=== PATIENT | male | born 1985 | race Hispanic/Latino ===

== ENCOUNTER 2016-03-10 01:50 | Inpatient (IN) | payer SELFPAY ==
[2016-03-10 02:59] LABS: Basophils % (Auto) 0.3 % (0.0-1.8); Eosinophils % (Auto) 0.1 % (0.0-4.3); Hematocrit 40.5 % (35.5-45.6); Hemoglobin 13.3 gm/dl (11.8-15.2); Mean Corpuscular HGB Conc 33 % (32-34); Mean Corpuscular Hemoglobin 27 pg (28-32); Mean Corpuscular Volume 82 fl (84-94); Platelet Count 266 K/mm3 (140-440); Red Blood Count 4.96 M/mm3 (3.65-5.03); Red Cell Distribution Width 13.8 % (13.2-15.2); White Blood Count 14.2 K/mm3 (4.5-11.0)
[2016-03-10 03:20] LABS: Chloride 94.7 mmol/L (98-107); Potassium 4.4 mmol/L (3.6-5.0)
--- NOTE | 2016-03-10 03:46 | Emergency Department Report ---
ED General Adult HPI - General Chief complaint: Weakness Stated complaint: FEELS FUNNY AFTER TAKING MEDS Time Seen by Provider: 03/10/16 02:59 Source: patient, EMS, RN notes reviewed, old records reviewed Mode of arrival: Stretcher Limitations: No Limitations - History of Present Illness Initial comments: This is a 23-year-old male, whom I have evaluated in the past. Has a past medical history of type 1 diabetes, multiple episodes of diabetic ketoacidosis, chronic skin infections in the past. He is brought to the hospital by EMS. Patient reports that 2 nights ago, he ingested 2 tablets of [id number] Unisom in order to go to sleep. He was not homicidal he was not suicidal. He reports that he started feeling funny and that his arms felt heavy. He denies coingestions. He denies chest pain and abdominal pain. The patient does complain of feeling generalized weakness, fatigue and malaise. He denies abdominal pain, testicular pain, irritative and obstructive urinary symptoms. He reports that his symptoms today feel similar to prior episodes of diabetic ketoacidosis. \\\ -: Gradual Consistency: constant Improves with: rest Worsens with: movement Associated Symptoms: loss of appetite, malaise, weakness - Related Data Home Medications Medication Instructions Recorded Confirmed Last Taken Insulin Aspart Prot/Aspart 25 units SQ BID 12/30/15 02/08/16 12/27/15 [NovoLOG Mix 70/30 VIAL] 0700 Allergies Allergy/AdvReac Type Severity Reaction Status Date / Time acetaminophen [From Tylenol] Allergy Hives Verified 11/10/14 21:56 codeine Allergy Hives Verified 11/10/14 21:56 morphine Allergy Hives Verified 11/10/14 21:56 ondansetron HCl [From Zofran] Allergy Hives Verified 11/10/14 21:56 ED Review of Systems ROS: Stated complaint: FEELS FUNNY AFTER TAKING MEDS Other details as noted in HPI Constitutional: malaise, weakness. denies: fever Eyes: denies: vision change ENT: denies: epistaxis Respiratory: denies: cough Cardiovascular: denies: chest pain Gastrointestinal: denies: abdominal pain Genitourinary: denies: urgency, dysuria, testicular pain Skin: denies: lesions Neurological: weakness Psychiatric: denies: homicidal thoughts, suicidal thoughts ED Past Medical Hx - Past Medical History Hx Hypertension: No Hx CVA: No Hx Heart Attack/AMI: No Hx Congestive Heart Failure: No Hx Diabetes: Yes (type I) Hx Deep Vein Thrombosis: No Hx Pulmonary Embolism: No Hx GERD: No Hx Liver Disease: No Hx Renal Disease: No Hx Sickle Cell Disease: No Hx Arthritis: No Hx Headaches / Migraines: No Hx Seizures: No Hx Kidney Stones: No Hx Psychiatric Treatment: No Hx Asthma: No Hx COPD: No Hx Tuberculosis: No Hx Dementia: No Hx HIV: No Additional medical history: staph infection - Surgical History Hx Coronary Stent: No Hx Open Heart Surgery: No Hx Pacemaker: No Hx Internal Defibrillator: No Hx Cholecystectomy: No Hx Appendectomy: No Hx Breast Surgery: No Additional Surgical History: wound debridement (staph infection)--NECK AND BACK - Social History Smoking Status: Never Smoker Substance Use Type: None - Medications Home Medications: Home Medications Medication Instructions Recorded Confirmed Last Taken Type Insulin Aspart Prot/Aspart 25 units SQ BID 12/30/15 02/08/16 12/27/15 History [NovoLOG Mix 70/30 VIAL] 0700 ED Physical Exam - General Limitations: No Limitations General appearance: alert, in no apparent distress - Head Head exam: Present: atraumatic, normocephalic - Eye Eye exam: Present: normal appearance, EOMI. Absent: nystagmus - ENT ENT exam: Present: mucous membranes dry, normal external ear exam - Neck Neck exam: Present: normal inspection, full ROM. Absent: tenderness, meningismus - Respiratory Respiratory exam: Present: normal lung sounds bilaterally. Absent: respiratory distress, wheezes, rales, rhonchi, stridor, chest wall tenderness - Cardiovascular Cardiovascular Exam: Present: normal rhythm, tachycardia, normal heart sounds. Absent: bradycardia, irregular rhythm, systolic murmur, diastolic murmur, rubs, gallop - GI/Abdominal GI/Abdominal exam: Present: soft, normal bowel sounds. Absent: distended, tenderness, guarding, rebound, rigid, pulsatile mass - Rectal Rectal exam: Present: deferred - Extremities Exam Extremities exam: Present: normal inspection, full ROM, normal capillary refill. Absent: tenderness, pedal edema, joint swelling, calf tenderness - Back Exam Back exam: Present: normal inspection, full ROM. Absent: tenderness, CVA tenderness (R), CVA tenderness (L), muscle spasm, paraspinal tenderness, vertebral tenderness - Neurological Exam Neurological exam: Present: alert, oriented X3, other (Extraocular movements intact. Tongue midline. No facial droop. Facial sensation intact to light touch in the V1, V2, V3 distribution bilaterally. 5 and 5 strength in 4 extremities.. Sensation is intact to light touch in 4 extremities.). Absent: motor sensory deficit - Psychiatric Psychiatric exam: Present: flat affect - Skin Skin exam: Present: warm, dry, intact, normal color. Absent: rash ED Course Vital Signs 03/10/16 03/10/16 02:12 03:04 Temperature 98 F Pulse Rate 117 H Respiratory 18 16 Rate Blood Pressure 96/63 O2 Sat by Pulse 98 98 Oximetry - Reevaluation(s) Reevaluation #1: 03/10/16 04:22 Differential diagnosis: Unintentional overdose, diabetic ketoacidosis, metabolic acidosis, hyperosmolar state, dehydration Assessment and plan: 30-year-old male with essentially 2 complaints. His first issue is accidental ingestion, which is not homicidal or suicidal. He presented more than 24 hours after the ingestion. Does not require charcoal at this time. Serum acetaminophen and salicylate levels are negative. He is found to be tachycardic, ketotic, the metabolic acidosis, and acidic venous pH. He has multiple episodes of known diabetic ketoacidosis at this hospital. I appreciate that his glucose is only 283, but given the presence of his metabolic acidosis, patient most likely has diabetic ketoacidosis at this time. He will be started on an insulin drip. I don't suspect toxic alcohol at this time. Patient is clinically sober, and does not require 1013 at this time. He has a GCS of 15, with an NIH score of 0. The case is discussed with the Hospital physician, Dr. Vazquez, who accepts the patient to his service. 03/10/16 04:31 ED Medical Decision Making - Lab Data Result diagrams: 03/10/16 02:41 03/10/16 02:41 Vital Signs 03/10/16 03/10/16 02:12 03:04 Temperature 98 F Pulse Rate 117 H Respiratory 18 16 Rate Blood Pressure 96/63 O2 Sat by Pulse 98 98 Oximetry Labs 03/10/16 03/10/16 03/10/16 02:41 02:41 02:41 WBC 14.2 H RBC 4.96 Hgb 13.3 Hct 40.5 MCV 82 L MCH 27 L MCHC 33 RDW 13.8 Plt Count 266 Lymph % (Auto) 11.3 L Tyrrell % (Auto) 5.6 Eos % (Auto) 0.1 Baso % (Auto) 0.3 Lymph # 1.6 Tyrrell # 0.8 Eos # 0.0 Baso # 0.0 Seg Neutrophils % 82.7 H Seg Neutrophils # 11.7 H VBG pH Sodium 135 L Potassium 4.4 Chloride 94.7 L Carbon Dioxide 11 L Anion Gap 34 BUN 33 H Creatinine 1.5 Estimated GFR 55 BUN/Creatinine Ratio 22.00 Glucose 283 H Lactic Acid Calcium 9.0 Salicylates Acetaminophen < 15.0 Ketones 77.4 H 03/10/16 03/10/16 03/10/16 02:41 02:41 03:59 WBC RBC Hgb Hct MCV MCH MCHC RDW Plt Count Lymph % (Auto) Tyrrell % (Auto) Eos % (Auto) Baso % (Auto) Lymph # Tyrrell # Eos # Baso # Seg Neutrophils % Seg Neutrophils # VBG pH 7.306 L Sodium Potassium Chloride Carbon Dioxide Anion Gap BUN Creatinine Estimated GFR BUN/Creatinine Ratio Glucose Lactic Acid 1.1 Calcium Salicylates < 0.3 L Acetaminophen Ketones - EKG Data EKG shows normal: axis (normal axis), intervals (prolonged QTC at 457 ms) Rate: tachycardia - EKG Data 03/10/16 04:32 Sinus tachycardia, 117 bpm, but voltage, not morphologically consistent with STEMI. - Radiology Data Radiology results: image reviewed interpreted by me: X-ray chest within normal limits/unremarkable. Critical Care Time: Yes Critical care time in (mins) excluding proc time.: 35 Critical care attestation.: If time is entered above; I have spent that time in minutes in the direct care of this critically ill patient, excluding procedure time. Critical Care Time: Critical care time includes multiple bedside evaluations, interpretation of laboratory studies, radiology studies, time spent managing a patient with metabolic acidosis requiring initiation of insulin drip. This excludes procedure time. ED Disposition Clinical Impression: Acute kidney injury, Dehydration, DKA (diabetic ketoacidoses) Disposition: OP ADMITTED IP TO THIS HOSP Is pt being admited?: Yes Does the pt Need Aspirin: No Condition: Good Instructions: Diabetes Mellitus Type 2 in Adults (ED), Diabetic Ketoacidosis ( ED)
[2016-03-10] MEDS ORDERED: NACL 0.9% 1000 ML IV ONE (04:00)
[2016-03-10 04:17] LABS: B-Hydroxybutyrate 77.4 mg/dL (0.2-2.8)
[2016-03-10] MEDS ORDERED: D50W (25GM) IV PRN (04:26)
[2016-03-10] MEDS ORDERED: NovoLIN R 100 UNITS in NACL 0.9% 99 ML IV SCH (05:00)
[2016-03-10 05:06] LABS: BUN/Creatinine Ratio 21.42; Calcium 8.5 mg/dL (8.4-10.2); Chloride 97.5 mmol/L (98-107); Magnesium 2.2 mg/dL (1.7-2.3); Potassium 4.4 mmol/L (3.6-5.0)
[2016-03-10] MEDS ORDERED: D5W/0.45% NACL/KCL 20 MEQ 1,000 ML IV SCH (07:00)
[2016-03-10 07:05] LABS: Anion Gap 21 mmol/L; Blood Urea Nitrogen 27 mg/dL (9-20); Calcium 7.6 mg/dL (8.4-10.2); Carbon Dioxide 17 mmol/L (22-30); Chloride 106.4 mmol/L (98-107); Glucose 136 mg/dL (75-100); Potassium 3.7 mmol/L (3.6-5.0); Sodium 141 mmol/L (137-145)
--- NOTE | 2016-03-10 07:18 | XRay Report ---
AP CHEST: HISTORY: Tachycardia AP view of the chest demonstrates a normal mediastinal and cardiac contour with clear lungs and normal bony and soft tissue structures. Mild scoliosis is noted. IMPRESSION: Unremarkable AP chest.
--- NOTE | 2016-03-10 07:55 | Admit Criteria Form ---
Admission Criteria Documentation: DIABETES Clinical Indications for Admission to Inpatient Care (Place 'X' for any and all applicable criteria): Admission is indicated by presence of ALL (if I & II) or ANY ONE (if III or IV) of the following (1)(2)(3)(4): [ X]I. Diabetes is uncontrolled as indicated by ANY ONE of the following: [X ]a) Diabetic ketoacidosis as indicated by ALL of the following (8): [X ]i) Hyperglycemia (eg, plasma glucose greater than 200 mg /dL (11.1 mmol/L)) [ X]ii) Acidosis (eg, arterial pH less than 7.30, serum bicarbonate level less than 15 mEq/L (mmol/L)) [X ]iii) Moderate ketonuria or ketonemia [ ]b) Hyperglycemic hyperosmolar state as indicated by ALL of the following(9)(10): [ ]i) Neurologic dysfunction (eg, stupor, coma, hemiparesis , seizure)(13) [ ]ii) Plasma glucose greater than 600 mg/dL (33.3 mmol/L) [ ]iii) Serum osmolality greater than 320 mOsm/kg (mmol/kg) [ ]c) Severe signs or symptoms secondary to hyperglycemia indicated by ANY ONE of the following: [ ]i) Altered mental status(10) [ ]ii) Significant hypovolemia or dehydration [ ]iii) Intractable nausea or vomiting [ ]iv) Unexplained fever or severe infection [ ]v) Severe electrolyte abnormality (eg, hypokalemia, hyperkalemia, hypernatremia) [X ]II. Management at other levels of care (Also use Diabetes: Observation Care as appropriate) is not feasible because of ANY ONE of the following: [X ]a) Condition was not adequately corrected with treatment at other levels of care. [ ]b) Treatment at other levels of care is not appropriate because of condition severity (eg, hyperosmolar coma). [ ]III. Contraindications and/or Inappropriate clinical situations for Observational Care in patients with Diabetes, when ANY ONE of the following is required: [ ]a) Patient require specific diagnostic workup or therapeutic intervention 22 [ ]b) Patient with abnormal vital signs or altered mental status 23 [ ]IV. General contraindications and/or Inappropriate clinical situations for Observational Care in patients with Diabetes, when ANY ONE of the following is required: [ ]a) Prediction of prolongation of LOS based on ANY ONE of the following may be considered as a contraindication for observational care 2, 3, 4, 5, 6, 7, 8, 9, 10, 11 [ ]i) Age > 65 yrs. [ ]ii) Patient arriving by ambulance [ ]iii) Patient with high acuity [ ]iv) Patient requiring vital sign monitoring [ ]v) Patient on IV medication [ ]b) Systolic blood pressures 180mmHg 3,12 [ ]c) Patient with altered mental status including delirium and other alteration of consciousness, (3) [ ]d) Patient whose discharge disposition will be to a longterm home or rehabilitation home should not be managed in Emergency Department Observation Unit. CMS rule requires 3 days hospital stay before such placement.3,13 [ ]e) Patient with failure to thrive due to broad array of etiologies 3,16,17 [ ]f) Inability to ambulate 3,14 Extended stay beyond goal length of stay may be needed for(3)(20): [ ]a) Treatment of precipitating causes [ ]b) Development of hypoglycemia [ ]c) Complications of treatment [ ]d) Complications of decompensated diabetes (eg, acute gastric dilatation, persistent metabolic or neurologic derangement) [ ]e) Active Comorbidities [ ]f) Older patients( 65 years or older) The original [employer] content created by [employer] has been revised. The portions of the content which have been revised are identified through the use of italic text or in bold,and [facility] has neither reviewed nor approved the modified material. All other unmodified content is copyright [employer]. Please see references footnoted in the original [facility] [employer] [facility] [employer] edition 2016 Admission Criteria Met: Yes
--- NOTE | 2016-03-10 08:08 | History and Physical Report ---
History of Present Illness Date of examination: 03/10/16 Medications and Allergies Allergies Allergy/AdvReac Type Severity Reaction Status Date / Time acetaminophen [From Tylenol] Allergy Hives Verified 11/10/14 21:56 codeine Allergy Hives Verified 11/10/14 21:56 morphine Allergy Hives Verified 11/10/14 21:56 ondansetron HCl [From Zofran] Allergy Hives Verified 11/10/14 21:56 Home Medications Medication Instructions Recorded Confirmed Last Taken Type Insulin Aspart Prot/Aspart 25 units SQ BID 12/30/15 03/10/16 12/27/15 History [NovoLOG Mix 70/30 VIAL] 0700 Active Meds: Active Medications Dextrose (D50w (25gm)) 0 ml IV PRN PRN PRN Reason: Hypoglycemia Insulin Human Regular 100 (units/ Sodium Chloride) 100 mls @ 1 mls/hr IV TITR SHARATH; 1 UNITS/HR PRN Reason: Protocol Last Titration: 03/10/16 07:25 Dose: 1.5 units/hr Potassium Chloride/Dextrose/Sod Cl (D5w/0.45% Nacl/Kcl 20 Meq) 1,000 mls @ 125 mls/hr IV DIRECT SHARATH Last Admin: 03/10/16 06:53 Dose: 125 mls/hr Exam - Constitutional Vitals: Temp Pulse Resp BP Pulse Ox 98 F 117 H 16 96/63 98 03/10/16 02:12 03/10/16 02:12 03/10/16 03:04 03/10/16 02:12 03/10/16 03:04 Results - Labs CBC & Chem 7: 03/10/16 02:41 03/11/16 07:07 Labs: Abnormal lab results 03/10/16 03/10/16 03/10/16 Range/Units 02:41 02:41 02:41 WBC 14.2 H (4.5-11.0) K/mm3 MCV 82 L (84-94) fl MCH 27 L (28-32) pg Lymph % (Auto) 11.3 L (13.4-35.0) % Seg Neutrophils % 82.7 H (40.0-70.0) % Seg Neutrophils # 11.7 H (1.8-7.7) K/mm3 VBG pH 7.306 L (7.320-7.420) Sodium 135 L (137-145) mmol/L Chloride 94.7 L (98-107) mmol/L Carbon Dioxide 11 L (22-30) mmol/L BUN 33 H (9-20) mg/dL Glucose 283 H (75-100) mg/dL Calcium (8.4-10.2) mg/dL Salicylates (2.8-20.0) mg/dL Ketones 77.4 H (0.2-2.8) mg/dL 03/10/16 03/10/16 03/10/16 Range/Units 02:41 04:36 06:37 WBC (4.5-11.0) K/mm3 MCV (84-94) fl MCH (28-32) pg Lymph % (Auto) (13.4-35.0) % Seg Neutrophils % (40.0-70.0) % Seg Neutrophils # (1.8-7.7) K/mm3 VBG pH (7.320-7.420) Sodium 136 L (137-145) mmol/L Chloride 97.5 L (98-107) mmol/L Carbon Dioxide 13 L 17 L (22-30) mmol/L BUN 30 H 27 H (9-20) mg/dL Glucose 230 H 136 H (75-100) mg/dL Calcium 7.6 L (8.4-10.2) mg/dL Salicylates < 0.3 L (2.8-20.0) mg/dL Ketones (0.2-2.8) mg/dL
[2016-03-10] MEDS ORDERED: NORCO 5/325 PO PRN (08:09)
[2016-03-10] MEDS: NACL 0.9% 1000 ML 1,000 ML IV SCH (08:43)
[2016-03-10] MEDS ORDERED: MILK OF MAGNESIA PO PRN (09:00)
[2016-03-10 09:03] LABS: Anion Gap 20 mmol/L; BUN/Creatinine Ratio 21.81; Blood Urea Nitrogen 24 mg/dL (9-20); Calcium 7.6 mg/dL (8.4-10.2); Carbon Dioxide 17 mmol/L (22-30); Chloride 104.7 mmol/L (98-107); Glucose 124 mg/dL (75-100); Sodium 138 mmol/L (137-145)
[2016-03-10] MEDS ORDERED: DULCOLAX PR PRN (10:00)
[2016-03-10] MEDS: HEPARIN SUB-Q SCH ×2 (13:07→21:51)
[2016-03-10 13:56] LABS: Anion Gap 19 mmol/L; Blood Urea Nitrogen 19 mg/dL (9-20); Calcium 7.9 mg/dL (8.4-10.2); Carbon Dioxide 19 mmol/L (22-30); Chloride 103.9 mmol/L (98-107); Glucose 173 mg/dL (75-100); Potassium 3.7 mmol/L (3.6-5.0); Sodium 138 mmol/L (137-145)
[2016-03-10 19:55] LABS: Anion Gap 18 mmol/L; BUN/Creatinine Ratio 15.55; Blood Urea Nitrogen 14 mg/dL (9-20); Calcium 7.8 mg/dL (8.4-10.2); Carbon Dioxide 21 mmol/L (22-30); Chloride 100.2 mmol/L (98-107); Glucose 257 mg/dL (75-100); Potassium 3.7 mmol/L (3.6-5.0); Sodium 135 mmol/L (137-145)
[2016-03-10] MEDS: NOVOLOG SUB-Q SCH (23:15)
[2016-03-11] MEDS: HEPARIN SUB-Q SCH ×2 (05:57→15:32)
[2016-03-11 08:06] LABS: Anion Gap 19 mmol/L; BUN/Creatinine Ratio 11.25; Blood Urea Nitrogen 9 mg/dL (9-20); Carbon Dioxide 21 mmol/L (22-30); Chloride 99.5 mmol/L (98-107); Glucose 411 mg/dL (75-100); Potassium 4.2 mmol/L (3.6-5.0); Sodium 135 mmol/L (137-145)
[2016-03-11] MEDS: NOVOLOG SUB-Q SCH ×3 (08:55→16:40)
[2016-03-11] MEDS: NACL 0.9% 1000 ML 1,000 ML IV SCH (11:02)
[2016-03-11 14:52] VITALS: BP 118/75
[2016-03-11 16:43] LABS: Anion Gap 15 mmol/L; BUN/Creatinine Ratio 13.33; Blood Urea Nitrogen 8 mg/dL (9-20); Calcium 8.4 mg/dL (8.4-10.2); Carbon Dioxide 27 mmol/L (22-30); Chloride 99.7 mmol/L (98-107); Glucose 129 mg/dL (75-100); Potassium 3.8 mmol/L (3.6-5.0); Sodium 138 mmol/L (137-145)
--- NOTE | 2016-03-11 17:05 | Discharge Summary ---
Providers - Providers Date of Admission: 03/10/16 08:09 Date of discharge: 03/11/16 Attending physician: ROMEL BOWLING Primary care physician: TRACI ANGEL MD Hospitalization Condition: Good Disposition: DISCHARGED TO HOME OR SELFCARE - Discharge Diagnoses (1) DKA (diabetic ketoacidoses) Status: Acute Core Measure Documentation - Palliative Care Palliative Care/ Comfort Measures: Not Applicable - Core Measures Any of the following diagnoses?: none Exam - Constitutional Vitals: Temp Pulse Resp BP Pulse Ox 97.9 F 99 H 12 118/75 99 03/11/16 14:50 03/11/16 14:50 03/11/16 14:50 03/11/16 14:50 03/11/16 14:50 Plan Activity: no restrictions Diet: diabetic Additional Instructions: 1.Follow up with PCP in 3-5 days. Follow up with: PRIMARY CARE, [Primary Care Provider] - 3-5 Days Prescriptions: Insulin Aspart Prot/Aspart [Novolog Mix 70/30] 28 units SQ BID #1 vial
[2016-03-11] MEDS ORDERED: SODIUM BICARBONATE PO SCH (22:00)
== END 2016-03-11 19:15 | disposition home or self-care (01) | DRG 638 ==
LOC: ED 01:50 → 3A 08:09
PROVIDERS: ADMIT Internal Medicine; ATTEND Internal Medicine
DX: E10.10 Type 1 diabetes mellitus with ketoacidosis without coma (principal); N17.9 Acute kidney failure, unspecified; E86.0 Dehydration; Z88.8 Allergy status to other drugs, medicaments and biological substances; Z88.5 Allergy status to narcotic agent; Z79.4 Long term (current) use of insulin; Z86.19 Personal history of other infectious and parasitic diseases; Z98.890 Other specified postprocedural states
CPT/HCPCS: 36415; 71010; 80048; 80320; 82010; 82140; 82805; 82962; 83735; 84100; 85025; 93005; 93010; 96365; 96366; 96368; G0480; J1644; J1815; J7030

== ENCOUNTER 2016-04-04 20:00 | Emergency (ER) | payer SELFPAY ==
[2016-04-04 20:55] LABS: Basophils % (Auto) 0.9 % (0.0-1.8); Hemoglobin 12.2 gm/dl (11.8-15.2); Mean Corpuscular HGB Conc 33 % (32-34); Mean Corpuscular Hemoglobin 27 pg (28-32); Mean Corpuscular Volume 81 fl (84-94); Platelet Count 289 K/mm3 (140-440); Red Blood Count 4.56 M/mm3 (3.65-5.03); Red Cell Distribution Width 14.3 % (13.2-15.2); White Blood Count 8.5 K/mm3 (4.5-11.0)
[2016-04-04 21:16] LABS: Anion Gap 26 mmol/L; BUN/Creatinine Ratio 13.07; Blood Urea Nitrogen 17 mg/dL (9-20); Calcium 8.3 mg/dL (8.4-10.2); Carbon Dioxide 15 mmol/L (22-30); Chloride 93.2 mmol/L (98-107); Glucose 277 mg/dL (75-100); Potassium 3.7 mmol/L (3.6-5.0); Sodium 130 mmol/L (137-145)
[2016-04-04 21:17] LABS: B-Hydroxybutyrate 48.4 mg/dL (0.2-2.8)
[2016-04-04] MEDS ORDERED: NACL 0.9% 1000 ML 1,000 ML IV ONE ×2 (22:19→22:23)
[2016-04-04] MEDS ORDERED: D50W (25GM) IV PRN (22:23)
[2016-04-04 22:32] VITALS: BP 101/67
--- NOTE | 2016-04-04 22:36 | Emergency Department Report ---
ED Chest Pain HPI - General Chief Complaint: Chest Pain Stated Complaint: CP/HIGH BLOOD SUGAR Time Seen by Provider: 04/04/16 22:18 Source: patient Mode of arrival: Ambulatory Limitations: No Limitations - History of Present Illness Initial Comments: 30-year-old male presents to the emergency department complaining of chest pain. Patient describes sharp pain across his chest, more so on the right. Symptoms began this morning approximate 7 AM. He states that the pain has been constant and is getting worse. She reports associated shortness of breath. He denies dizziness, diaphoresis, nausea, or vomiting. He states his blood sugar was high at home and thinks that is why he is having chest pain. There are no other complaints. MD Complaint: chest pain -: Gradual, This morning Time: 07:00 Onset: during rest Pain Location: substernal Pain Radiation: none Severity: moderate Severity scale (0 -10): 8 Quality: sharp Consistency: constant Improves With: nothing Worsens With: nothing re: dyspnea Treatments Prior to Arrival: none Aspirin use within the Past 7 Days: (0) No - Related Data Previous Rx's Medication Instructions Recorded Last Taken Type Insulin Aspart Prot/Aspart 28 units SQ BID #1 vial 03/11/16 Unknown Rx [Novolog Mix 70/30] Allergies Allergy/AdvReac Type Severity Reaction Status Date / Time acetaminophen [From Tylenol] Allergy Hives Verified 11/10/14 21:56 codeine Allergy Hives Verified 11/10/14 21:56 morphine Allergy Hives Verified 11/10/14 21:56 ondansetron HCl [From Zofran] Allergy Hives Verified 11/10/14 21:56 AICHA score - Aicha Score Age > 65: (0) No Aspirin use within the Past 7 Days: (0) No 3 or more CAD Risk Factors: (0) No 2 or more Angina events in past 24 hrs: (0) No Known CAD with more than 50% Stenosis: (0) No Elevated Cardiac Markers: (1) Yes ST Deviation Greater than 0.5mm: (0) No AICHA Score: 1 ED Review of Systems ROS: Stated complaint: CP/HIGH BLOOD SUGAR Other details as noted in HPI Comment: All other systems reviewed and negative Respiratory: shortness of breath Cardiovascular: chest pain ED Past Medical Hx - Past Medical History Previous Medical History?: Yes Hx Hypertension: No Hx CVA: No Hx Heart Attack/AMI: No Hx Congestive Heart Failure: No Hx Diabetes: Yes Hx Deep Vein Thrombosis: No Hx Pulmonary Embolism: No Hx GERD: No Hx Liver Disease: No Hx Renal Disease: No Hx Sickle Cell Disease: No Hx Arthritis: No Hx Headaches / Migraines: No Hx Seizures: No Hx Kidney Stones: No Hx Psychiatric Treatment: No Hx Asthma: No Hx COPD: No Hx Tuberculosis: No Hx Dementia: No Hx HIV: No Additional medical history: staph infection - Surgical History Past Surgical History?: Yes Hx Coronary Stent: No Hx Open Heart Surgery: No Hx Pacemaker: No Hx Internal Defibrillator: No Hx Cholecystectomy: No Hx Appendectomy: No Hx Breast Surgery: No Additional Surgical History: wound debridement (staph infection)--NECK AND BACK - Family History Family history: no significant - Social History Smoking Status: Never Smoker Substance Use Type: None - Medications Home Medications: Home Medications Medication Instructions Recorded Confirmed Last Taken Type Insulin Aspart Prot/Aspart 28 units SQ BID #1 vial 03/11/16 Unknown Rx [Novolog Mix 70/30] ED Physical Exam - General Limitations: No Limitations General appearance: alert, in no apparent distress - Head Head exam: Present: atraumatic, normocephalic - Eye Eye exam: Present: normal appearance, PERRL, EOMI - ENT ENT exam: Present: normal exam, normal orophraynx, mucous membranes moist - Neck Neck exam: Present: normal inspection, full ROM. Absent: tenderness - Respiratory Respiratory exam: Present: normal lung sounds bilaterally. Absent: respiratory distress, chest wall tenderness - Cardiovascular Cardiovascular Exam: Present: normal rhythm, tachycardia, normal heart sounds - GI/Abdominal GI/Abdominal exam: Present: soft, normal bowel sounds. Absent: distended, tenderness - Extremities Exam Extremities exam: Present: normal inspection, full ROM. Absent: tenderness - Back Exam Back exam: Present: normal inspection, full ROM. Absent: tenderness - Neurological Exam Neurological exam: Present: alert, oriented X3. Absent: motor sensory deficit - Skin Skin exam: Present: warm, dry, intact ED Course Vital Signs 04/04/16 20:21 Temperature 97.5 F L Pulse Rate 116 H Respiratory 20 Rate Blood Pressure 98/64 Blood Pressure 98/64 [Left] O2 Sat by Pulse 100 Oximetry ED Medical Decision Making - Lab Data Result diagrams: 04/04/16 20:37 04/04/16 20:37 - EKG Data -: EKG Interpreted by Me EKG shows normal: sinus rhythm, axis, intervals, QRS complexes Rate: tachycardia - EKG Data When compared to previous EKG there are: changes noted Interpretation: other (flattening of lateral T waves compared to 03/10/2016) - Medical Decision Making Lab results reviewed and discussed with the patient. Patient is slightly elevated troponin and appears to be in DKA. DKA order set has been initiated. Giving IV fluids. I spoke with Dr. Orona, cardiology. Patient will be admitted by the hospitalist. - Differential Diagnosis chest pain, ACS, DKA Critical care attestation.: If time is entered above; I have spent that time in minutes in the direct care of this critically ill patient, excluding procedure time. ED Disposition Clinical Impression: Elevated troponin Diabetic ketoacidosis, type I Qualifiers: Diabetes mellitus complication detail: without coma Qualified Code(s): E10.10 - Type 1 diabetes mellitus with ketoacidosis without coma Disposition: OP ADMITTED IP TO THIS HOSP Is pt being admited?: Yes Condition: Stable Instructions: Diabetes Mellitus Type 2 in Adults (ED) Time of Disposition: 22:38
[2016-04-04] MEDS ORDERED: D5W/0.45% NACL/KCL 20 MEQ 20 MEQ/1,000 ML BAG IV SCH (23:00)
[2016-04-04 23:15] LABS: Anion Gap 25 mmol/L; BUN/Creatinine Ratio 13.07; Blood Urea Nitrogen 17 mg/dL (9-20); Calcium 8.4 mg/dL (8.4-10.2); Carbon Dioxide 16 mmol/L (22-30); Chloride 94.4 mmol/L (98-107); Glucose 261 mg/dL (75-100); Potassium 4.2 mmol/L (3.6-5.0); Sodium 131 mmol/L (137-145)
[2016-04-04 23:32] LABS: Magnesium 1.8 mg/dL (1.7-2.3); Phosphorous 2.9 mg/dL (2.5-4.5)
[2016-04-04] MEDS: NovoLIN R 100 UNITS in NACL 0.9% 99 ML IV SCH (23:40)
[2016-04-05] MEDS ORDERED: NITROSTAT SL PRN (00:06)
[2016-04-05] MEDS ORDERED: SODIUM CHLORIDE FLUSH SYRINGE 10 ML IV PRN (00:06)
--- NOTE | 2016-04-05 00:18 | History and Physical Report ---
History of Present Illness Date of examination: 04/05/16 Chief complaint: Chest pain History of present illness: 30-year-old male with history of diabetes mellitus type on presents to the emergency department complaining of chest pain which is started since 7 AM yesterday morning. Patient describes pain as sharp across his chest, more so on the right. He states that the pain has been constant and is getting worse. He reports associated shortness of breath. He denies dizziness, diaphoresis, nausea, or vomiting. He states his blood sugar was high at home and initially he thought that might be the reason for having chest pain. There are no other complaints. In the ER his troponin noted to be 0.048, blood glucose 277 with an anion gap 26, creatinine 1.3 and ketone level 48.4. He was started on insulin drip because of her anion gap and getting admitted to ICU for further evaluation and management. Past History Past Medical History: diabetes (diabetes mellitus type 1) Past Surgical History: Wound debridement from Neck and back area Social history: single, smoking (no smoke), alcohol abuse (no alcohol) Family history: diabetes Review of System: Constitutional: no fever, no chills, no weight loss Ears, eyes, nose, mouth and throat: no nasal congestion, no nasal discharge, no sinus pressure, no vision change, no red eye. Neck: No neck pain or rigidity. Cardiovascular: + chest pain, no orthopnea, no palpitations, no leg swelling Respiratory: + shortness of breath, no cough, no congestion, no wheezing Gastrointestinal: no abdominal pain, no nausea, no vomiting Genitourinary : no dysuria, no hematuria Musculoskeletal: no joint swelling or muscle ache Integumentary: no rash, no pruritis Neurological: no parathesias, no numbness, no tingling Endocrine: no cold or heat intolerance, no polyuria or polydipsia Hematologic/Lymphatic: no easy bruising, no easy bleeding, no gland swelling Allergic/Immunologic: no urticaria, no angioedema. Medications and Allergies Allergies Allergy/AdvReac Type Severity Reaction Status Date / Time acetaminophen [From Tylenol] Allergy Hives Verified 11/10/14 21:56 codeine Allergy Hives Verified 11/10/14 21:56 morphine Allergy Hives Verified 11/10/14 21:56 ondansetron HCl [From Zofran] Allergy Hives Verified 11/10/14 21:56 Home Medications Medication Instructions Recorded Confirmed Last Taken Type Insulin Aspart Prot/Aspart 28 units SQ BID #1 vial 03/11/16 Unknown Rx [Novolog Mix 70/30] Active Meds: Active Medications Aspirin (Ecotrin) 325 mg PO QDAY SHARATH Dextrose (D50w (25gm)) 0 ml IV ONCE PRN PRN Reason: Hypoglycemia Docusate Sodium (Colace) 100 mg PO BID SHARATH Enoxaparin Sodium (Lovenox) 40 mg SUB-Q QDAY SHARATH Famotidine (Pepcid) 20 mg PO BID SHARATH Potassium Chloride/Dextrose/Sod Cl (D5w/0.45% Nacl/Kcl 20 Meq) 20 meq in 1,000 mls @ 125 mls/hr IV DIRECT SHARATH Insulin Human Regular 100 (units/ Sodium Chloride) 100 mls @ 1 mls/hr IV TITR SHARATH; 1 UNITS/HR PRN Reason: Protocol Last Admin: 04/04/16 23:40 Dose: 5 units/hr, 5 mls/hr Sodium Chloride (Nacl 0.9% 1000 Ml) 1,000 mls @ 100 mls/hr IV DIRECT SHARATH Nitroglycerin (Nitrostat) 0.4 mg SL Q5M PRN PRN Reason: Chest Pain Sodium Chloride (Sodium Chloride Flush Syringe 10 Ml) 10 ml IV PRN PRN PRN Reason: LINE FLUSH Exam - Physical Exam Narrative exam: GENERAL: This is a white male lying on bed appeared to be in no discomfort. HEENT: Normocephalic. Atraumatic. Extraocular motions are intact. No conjunctival congestion or icterus. Patient has moist mucous membranes. External auditory canal and nares patent bilaterally. NECK: Supple. Trachea midline. No JVD, thyromagaly or lymphadenopathy. CHEST/LUNGS: Clear to auscultated bilaterally. There is no respiratory distress noted, breathing nonlabored. No wheezes crackles or rhonchi. HEART/CARDIOVASCULAR: Regular in rate and rhythm. PMI at the apex. There is no gallop rub or murmur. ABDOMEN: Abdomen is soft, nontender. Patient has normal bowel sounds. There is no abdominal distention. No organomagaly or rigidity. SKIN: There is no rash, no erythrema. There is no diaphoresis. Warm and dry. NEUROLOGY: The patient is awake, alert, and oriented. The patient is cooperative. The patient has normal speech. No focal motor deficit. MUSCULOSKELETAL: No joint effusion or tenderness. Muscle strength equal bilaterally. No muscle wasting. EXTRIMITY: No edema, cyanosis or clubbing. PSYCH: No depression or anxiety noted. Cooperative. - Constitutional Vitals: Temp Pulse Resp BP Pulse Ox 96.0 F L 104 H 16 101/67 100 04/04/16 22:27 04/04/16 22:27 04/04/16 22:27 04/04/16 22:27 04/04/16 22:27 Results - Labs CBC & Chem 7: 04/04/16 20:37 04/05/16 00:32 Labs: Laboratory Last Values WBC 8.5 K/mm3 (4.5-11.0) 04/04/16 20:37 RBC 4.56 M/mm3 (3.65-5.03) 04/04/16 20:37 Hgb 12.2 gm/dl (11.8-15.2) 04/04/16 20:37 Hct 37.0 % (35.5-45.6) 04/04/16 20:37 MCV 81 fl (84-94) L 04/04/16 20:37 MCH 27 pg (28-32) L 04/04/16 20:37 MCHC 33 % (32-34) 04/04/16 20:37 RDW 14.3 % (13.2-15.2) 04/04/16 20:37 Plt Count 289 K/mm3 (140-440) 04/04/16 20:37 Lymph % (Auto) 21.9 % (13.4-35.0) 04/04/16 20:37 Wood % (Auto) 8.3 % (0.0-7.3) H 04/04/16 20:37 Eos % (Auto) 1.0 % (0.0-4.3) 04/04/16 20:37 Baso % (Auto) 0.9 % (0.0-1.8) 04/04/16 20:37 Lymph # 1.9 K/mm3 (1.2-5.4) 04/04/16 20:37 Wood # 0.7 K/mm3 (0.0-0.8) 04/04/16 20:37 Eos # 0.1 K/mm3 (0.0-0.4) 04/04/16 20:37 Baso # 0.1 K/mm3 (0.0-0.1) 04/04/16 20:37 Seg Neutrophils % 67.9 % (40.0-70.0) 04/04/16 20:37 Seg Neutrophils # 5.7 K/mm3 (1.8-7.7) 04/04/16 20:37 VBG pH 7.267 (7.320-7.420) L 04/04/16 20:37 Sodium 131 mmol/L (137-145) L 04/04/16 22:51 Potassium 4.2 mmol/L (3.6-5.0) 04/04/16 22:51 Chloride 94.4 mmol/L (98-107) L 04/04/16 22:51 Carbon Dioxide 16 mmol/L (22-30) L 04/04/16 22:51 Anion Gap 25 mmol/L 04/04/16 22:51 BUN 17 mg/dL (9-20) 04/04/16 22:51 Creatinine 1.3 mg/dL (0.8-1.5) 04/04/16 22:51 Estimated GFR > 60 ml/min 04/04/16 22:51 BUN/Creatinine Ratio 13.07 % 04/04/16 22:51 Glucose 261 mg/dL (75-100) H 04/04/16 22:51 POC Glucose 288 (70-105) H 04/04/16 20:21 Calcium 8.4 mg/dL (8.4-10.2) 04/04/16 22:51 Phosphorus 2.9 mg/dL (2.5-4.5) 04/04/16 22:51 Magnesium 1.8 mg/dL (1.7-2.3) 04/04/16 22:51 Troponin T 0.048 ng/mL (0.00-0.029) H 04/04/16 22:51 Triglycerides 264 mg/dL (2-149) H 04/04/16 20:37 Cholesterol 174 mg/dL (50-199) 04/04/16 20:37 LDL Cholesterol Direct 63 mg/dL (50-130) 04/04/16 20:37 HDL Cholesterol 59 mg/dL (40-59) 04/04/16 20:37 Cholesterol/HDL Ratio 2.94 % 04/04/16 20:37 Ketones 48.4 mg/dL (0.2-2.8) H 04/04/16 20:37 - Imaging and Cardiology Chest x-ray: report reviewed (no acute infiltrates) Assessment and Plan Assessment and plan: DKA with type 1 diabetes mellitus Chest pain with elevated troponin, rule out ACS Mildly ECHO, likely due to dehydration Hyponatremia likely due to hyperglycemia and dehydration Plan: Admit to intensive care unit Continue insulin drip until anion gap closes Place on IV fluid, check every hour Trained troponin and get 2-D echocardiogram Cardiology consults, possible stress test when anion gap resolves GI and DVT prophylaxis Place on aspirin and statin Monitor potassium and magnesium level and replace as needed Advance Directives: Yes VTE prophylaxis?: Chemical Plan of care discussed with patient/family: Yes
[2016-04-05] MEDS: NovoLIN R 100 UNITS in NACL 0.9% 99 ML IV SCH (00:50)
[2016-04-05 01:00] LABS: Anion Gap 20 mmol/L; Blood Urea Nitrogen 15 mg/dL (9-20); Calcium 7.7 mg/dL (8.4-10.2); Carbon Dioxide 17 mmol/L (22-30); Chloride 102.3 mmol/L (98-107); Glucose 177 mg/dL (75-100); Potassium 3.3 mmol/L (3.6-5.0); Sodium 136 mmol/L (137-145)
[2016-04-05] MEDS ORDERED: NACL 0.9% 1000 ML 1,000 ML IV SCH (01:00)
[2016-04-05 01:01] LABS: Creatine Kinase MB 12.7 ng/mL (0.0-4.0)
[2016-04-05] MEDS ORDERED: PEPCID PO SCH (10:00)
[2016-04-05] MEDS ORDERED: COLACE PO SCH (10:00)
[2016-04-05] MEDS ORDERED: LOVENOX SUB-Q SCH (10:00)
[2016-04-06] MEDS ORDERED: ECOTRIN PO SCH (10:00)
== END 2016-04-05 01:23 | disposition left against medical advice (07) ==
LOC: ED 20:00 → UNDOADMIN 04-05 00:09 → CC1 04-05 00:09
DX: E13.10 Other specified diabetes mellitus with ketoacidosis without coma (principal); R79.89 Other specified abnormal findings of blood chemistry
CPT/HCPCS: 36415; 80048; 80061; 82010; 82550; 82553; 82805; 82962; 83735; 84100; 84484; 85025; 93005; 93010; 94760; 96361; 96365; 99285; J7030; J1815

== ENCOUNTER 2016-05-07 08:51 | Inpatient (IN) | payer SELFPAY ==
[2016-05-07 10:00] LABS: Basophils % (Auto) 0.7 % (0.0-1.8); Eosinophils % (Auto) 0.9 % (0.0-4.3); Hematocrit 40.8 % (35.5-45.6); Hemoglobin 12.8 gm/dl (11.8-15.2); Mean Corpuscular HGB Conc 31 % (32-34); Mean Corpuscular Hemoglobin 26 pg (28-32); Mean Corpuscular Volume 84 fl (84-94); Platelet Count 283 K/mm3 (140-440); Red Blood Count 4.85 M/mm3 (3.65-5.03); Red Cell Distribution Width 14.8 % (13.2-15.2); White Blood Count 9.4 K/mm3 (4.5-11.0)
[2016-05-07 10:26] LABS: BUN/Creatinine Ratio 14.28; Blood Urea Nitrogen 20 mg/dL (9-20); Calcium 8.9 mg/dL (8.4-10.2); Chloride 84.4 mmol/L (98-107); Potassium 4.9 mmol/L (3.6-5.0); Sodium 125 mmol/L (137-145)
[2016-05-07 10:29] LABS: Anion Gap 41 mmol/L; Carbon Dioxide 5 mmol/L (22-30); Glucose 638 mg/dL (75-100)
[2016-05-07] MEDS ORDERED: D50W (25GM) IV PRN (10:31)
[2016-05-07] MEDS ORDERED: SUBLIMAZE IV ONE (10:33)
[2016-05-07] MEDS ORDERED: REGLAN IV ONE (10:34)
--- NOTE | 2016-05-07 10:39 | Emergency Department Report ---
HPI - General Chief Complaint: Chest Pain Time Seen by Provider: 05/07/16 10:23 - HPI HPI: Room 3 The patient is a 30-year-old male presenting with chief complaint chest pain. The patient states for 2 days he's had a constant anterior chest pain that has been dull in nature. Patient denies cough or fever. Patient admits to nausea but denies vomiting. The patient is a type I diabetic and states he has been compliant with his insulin. The patient currently gives his pain a score of 9.5 /10 Location: Chest Duration: 2 days Quality: Dull Severity: 9.5/10 Modifying factors: [see above] Context: [see above] Mode of transportation: Unknown ED Past Medical Hx - Past Medical History Previous Medical History?: Yes Hx Diabetes: Yes Additional medical history: staph infection - Surgical History Past Surgical History?: Yes Additional Surgical History: wound debridement (staph infection)--NECK AND BACK - Family History Family history: no significant - Social History Smoking Status: Never Smoker Substance Use Type: None - Medications Home Medications: Home Medications Medication Instructions Recorded Confirmed Last Taken Type Insulin NPH/Regular [NovoLIN 70/30] 20 units SUB-Q DAILY 05/07/16 05/07/16 Unknown History ED Review of Systems ROS: Stated complaint: CHEST/BRUCE Other details as noted in HPI Comment: All other systems reviewed and negative Constitutional: denies: chills, fever Eyes: denies: eye pain, eye discharge, vision change ENT: denies: ear pain, throat pain Respiratory: denies: cough Cardiovascular: chest pain. denies: palpitations Endocrine: no symptoms reported Gastrointestinal: nausea. denies: vomiting Genitourinary: denies: urgency, dysuria Musculoskeletal: denies: back pain, joint swelling, arthralgia Skin: denies: rash, lesions Neurological: denies: headache, weakness, paresthesias Psychiatric: denies: anxiety, depression Hematological/Lymphatic: denies: easy bleeding, easy bruising Physical Exam - Physical Exam Vital Signs: Vital Signs 05/07/16 05/07/16 09:14 09:27 Temperature 97.4 F L Pulse Rate 115 H Respiratory 16 16 Rate Blood Pressure 102/63 Blood Pressure 102/63 [Right] O2 Sat by Pulse 100 100 Oximetry Physical Exam: GENERAL: The patient is well-developed well-nourished male lying on stretcher appearing to be in moderate discomfort. [] HEENT: Normocephalic. Atraumatic. Extraocular motions are intact. Patient has dry mucous membranes. NECK: Supple. Trachea midline CHEST/LUNGS: Clear to auscultation. There is no respiratory distress noted. HEART/CARDIOVASCULAR: Regular. There is tachycardia. There is no gallop rub or murmur. ABDOMEN: Abdomen is soft, nontender. Patient has normal bowel sounds. There is no abdominal distention. SKIN: There is no rash. There is no edema. There is no diaphoresis. NEURO: The patient is awake, alert, and oriented. The patient is cooperative. The patient has normal speech MUSCULOSKELETAL: There is no evidence of acute injury. ED Course Vital Signs 05/07/16 05/07/16 09:14 09:27 Temperature 97.4 F L Pulse Rate 115 H Respiratory 16 16 Rate Blood Pressure 102/63 Blood Pressure 102/63 [Right] O2 Sat by Pulse 100 100 Oximetry ED Medical Decision Making - Lab Data Result diagrams: 05/07/16 09:37 05/07/16 09:37 Laboratory Tests 05/07/16 05/07/16 05/07/16 09:37 09:37 09:37 WBC 9.4 RBC 4.85 Hgb 12.8 Hct 40.8 MCV 84 MCH 26 L MCHC 31 L RDW 14.8 Plt Count 283 Lymph % (Auto) 14.8 [place] % (Auto) 6.2 Eos % (Auto) 0.9 Baso % (Auto) 0.7 Lymph # 1.4 Frio # 0.6 Eos # 0.1 Baso # 0.1 Seg Neutrophils % 77.4 H Seg Neutrophils # 7.3 D-Dimer VBG pH 7.099 L* Sodium 125 L Potassium 4.9 Chloride 84.4 L Carbon Dioxide 5 L* Anion Gap 41 BUN 20 Creatinine 1.4 Estimated GFR 60 BUN/Creatinine Ratio 14.28 Glucose 638 H* Calcium 8.9 Phosphorus Magnesium Troponin T 0.041 H Triglycerides 408 H Cholesterol 178 LDL Cholesterol Direct TNR HDL Cholesterol 52 Cholesterol/HDL Ratio 3.42 05/07/16 05/07/16 09:37 10:45 WBC RBC Hgb Hct MCV MCH MCHC RDW Plt Count Lymph % (Auto) Frio % (Auto) Eos % (Auto) Baso % (Auto) Lymph # Frio # Eos # Baso # Seg Neutrophils % Seg Neutrophils # D-Dimer 243.84 H VBG pH Sodium Potassium Chloride Carbon Dioxide Anion Gap BUN Creatinine Estimated GFR BUN/Creatinine Ratio Glucose Calcium Phosphorus 4.5 Magnesium 1.9 Troponin T Triglycerides Cholesterol LDL Cholesterol Direct HDL Cholesterol Cholesterol/HDL Ratio - EKG Data -: EKG Interpreted by Me EKG shows normal: sinus rhythm Rate: tachycardia - EKG Data When compared to previous EKG there are: previous EKG unavailable Interpretation: nonspecific ST-T wave jayme (T-wave inversion in leads 1 and aVL) - Radiology Data Radiology results: image reviewed (chest x-ray) interpreted by me: Chest x-ray-no focal infiltrates, no pneumothorax - Differential Diagnosis ACS, PE, DKA Critical care attestation.: If time is entered above; I have spent that time in minutes in the direct care of this critically ill patient, excluding procedure time. ED Disposition Clinical Impression: DKA (diabetic ketoacidosis), Elevated troponin, Chest pain Disposition: OP ADMITTED IP TO THIS HOSP Is pt being admited?: Yes Does the pt Need Aspirin: Yes Condition: Serious Instructions: Chest Pain (ED), Diabetes Mellitus Type 2 in Adults (ED) Referrals: PRIMARY CARE, [Primary Care Provider] - 3-5 Days Time of Disposition: 11:30 (hospitalist paged)
[2016-05-07 10:49] LABS: Cholesterol 178 mg/dL (50-199); HDL Cholesterol 52 mg/dL (40-59); LDL Cholesterol,Direct TNR mg/dL (50-130); Triglycerides 408 mg/dL (2-149)
--- NOTE | 2016-05-07 10:58 | Admit Criteria Form ---
Admission Criteria Documentation: DIABETES Clinical Indications for Admission to Inpatient Care (Place 'X' for any and all applicable criteria): Admission is indicated by presence of ALL (if I & II) or ANY ONE (if III or IV) of the following (1)(2)(3)(4): [X ]I. Diabetes is uncontrolled as indicated by ANY ONE of the following: [X ]a) Diabetic ketoacidosis as indicated by ALL of the following (8): [ X]i) Hyperglycemia (eg, plasma glucose greater than 200 mg /dL (11.1 mmol/L)) [ X]ii) Acidosis (eg, arterial pH less than 7.30, serum bicarbonate level less than 15 mEq/L (mmol/L)) [ X]iii) Moderate ketonuria or ketonemia [ ]b) Hyperglycemic hyperosmolar state as indicated by ALL of the following(9)(10): [ ]i) Neurologic dysfunction (eg, stupor, coma, hemiparesis , seizure)(13) [ ]ii) Plasma glucose greater than 600 mg/dL (33.3 mmol/L) [ ]iii) Serum osmolality greater than 320 mOsm/kg (mmol/kg) [ ]c) Severe signs or symptoms secondary to hyperglycemia indicated by ANY ONE of the following: [ ]i) Altered mental status(10) [ ]ii) Significant hypovolemia or dehydration [ ]iii) Intractable nausea or vomiting [ ]iv) Unexplained fever or severe infection [ ]v) Severe electrolyte abnormality (eg, hypokalemia, hyperkalemia, hypernatremia) [ X]II. Management at other levels of care (Also use Diabetes: Observation Care as appropriate) is not feasible because of ANY ONE of the following: [ X]a) Condition was not adequately corrected with treatment at other levels of care. [ ]b) Treatment at other levels of care is not appropriate because of condition severity (eg, hyperosmolar coma). [ ]III. Contraindications and/or Inappropriate clinical situations for Observational Care in patients with Diabetes, when ANY ONE of the following is required: [ ]a) Patient require specific diagnostic workup or therapeutic intervention 22 [ ]b) Patient with abnormal vital signs or altered mental status 23 [X ]IV. General contraindications and/or Inappropriate clinical situations for Observational Care in patients with Diabetes, when ANY ONE of the following is required: [X ]a) Prediction of prolongation of LOS based on ANY ONE of the following may be considered as a contraindication for observational care 2, 3, 4, 5, 6, 7, 8, 9, 10, 11 [ ]i) Age > 65 yrs. [X ]ii) Patient arriving by ambulance [ ]iii) Patient with high acuity [ ]iv) Patient requiring vital sign monitoring [ ]v) Patient on IV medication [ ]b) Systolic blood pressures 180mmHg 3,12 [ ]c) Patient with altered mental status including delirium and other alteration of consciousness, (3) [ ]d) Patient whose discharge disposition will be to a [place] [facility] home or rehabilitation home should not be managed in Emergency Department Observation Unit. CMS rule requires 3 days hospital stay before such placement.3,13 [ ]e) Patient with failure to thrive due to broad array of etiologies 3,16,17 [ ]f) Inability to ambulate 3,14 Extended stay beyond goal length of stay may be needed for(3)(20): [ ]a) Treatment of precipitating causes [ ]b) Development of hypoglycemia [ ]c) Complications of treatment [ ]d) Complications of decompensated diabetes (eg, acute gastric dilatation, persistent metabolic or neurologic derangement) [ ]e) Active Comorbidities [ ]f) Older patients( 65 years or older) The original [facility] content created by [employer] has been revised. The portions of the content which have been revised are identified through the use of italic text or in bold,and [facility] has neither reviewed nor approved the modified material. All other unmodified content is copyright [facility]. Please see references footnoted in the original [facility] edition 2016 Admission Criteria Met: Yes
[2016-05-07] MEDS ORDERED: NovoLIN R 100 UNITS in NACL 0.9% 99 ML IV SCH (11:00)
--- NOTE | 2016-05-07 11:01 | XRay Report ---
Single view chest: Compared to 03/10/16. History: Chest pain. Findings: Normal cardiomediastinal silhouette. Trachea is midline. No consolidation, pneumothorax or pleural effusion. Impression: No acute cardiopulmonary findings.
[2016-05-07 11:18] LABS: Magnesium 1.9 mg/dL (1.7-2.3); Phosphorous 4.5 mg/dL (2.5-4.5)
[2016-05-07] MEDS ORDERED: MILK OF MAGNESIA PO PRN (12:22)
[2016-05-07] MEDS ORDERED: DULCOLAX PR PRN (12:22)
[2016-05-07] MEDS ORDERED: ALUM-MAG HYDROX-SIMETH 200-200-20MG/5ML PO PRN (12:22)
--- NOTE | 2016-05-07 12:43 | History and Physical Report ---
History of Present Illness Date of examination: 05/07/16 History of present illness: The patient is a 30-year-old male presenting with chief complaint chest pain. The patient states for 2 days he's had a constant anterior chest pain that has been dull in nature. Patient denies cough or fever. Patient admits to nausea but denies vomiting. The patient is a type I diabetic and states he has been compliant with his insulin. The patient currently gives his pain a score of 9.5 /10 Past History Past Medical History: diabetes Medications and Allergies Allergies Allergy/AdvReac Type Severity Reaction Status Date / Time acetaminophen [From Tylenol] Allergy Hives Verified 05/07/16 09:20 codeine Allergy Hives Verified 05/07/16 09:20 morphine Allergy Hives Verified 05/07/16 09:20 ondansetron HCl [From Zofran] Allergy Hives Verified 05/07/16 09:20 Home Medications Medication Instructions Recorded Confirmed Last Taken Type Insulin NPH/Regular [NovoLIN 70/30] 20 units SUB-Q DAILY 05/07/16 05/07/16 Unknown History Active Meds: Active Medications Al Hydrox/Mg Hydrox/Simethicone (Alum-Mag Hydrox-Simeth [id number]/5ml) 30 ml PO Q4H PRN PRN Reason: Indigestion Aspirin (Aspirin) 325 mg PO QDAY SHARATH Bisacodyl (Dulcolax) 10 mg SC QDAY PRN PRN Reason: constipation unrelieved by MOM Dextrose (D50w (25gm)) 0 ml IV ONCE PRN PRN Reason: Hypoglycemia Enoxaparin Sodium (Lovenox) 30 mg SUB-Q QDAY SHARATH Insulin Human Regular 100 (units/ Sodium Chloride) 100 mls @ 5 mls/hr IV TITR SHARATH; 5 UNITS/HR PRN Reason: Protocol Last Titration: 05/07/16 12:25 Dose: 8 units/hr, 8 mls/hr Magnesium Hydroxide (Milk Of Magnesia) 30 ml PO Q4H PRN PRN Reason: Constipation Review of Systems Constitutional: fatigue, weakness, malaise, poor appetite Exam - Constitutional Vitals: Temp Pulse Resp BP Pulse Ox 97.4 F L 110 H 21 84/47 98 05/07/16 09:14 05/07/16 11:00 05/07/16 12:00 05/07/16 12:00 05/07/16 12:00 General appearance: Present: mild distress - EENT Eyes: Present: PERRL, EOM intact ENT: hearing intact, clear oral mucosa - Neck Neck: Present: supple, normal ROM - Respiratory Respiratory effort: normal Respiratory: bilateral: CTA - Cardiovascular Rhythm: regular Heart Sounds: Present: S1 & S2 - Extremities Extremities: No edema - Abdominal General gastrointestinal: Present: soft, non-tender, non-distended, normal bowel sounds - Musculoskeletal Musculoskeletal: strength equal bilaterally - Psychiatric Psychiatric: appropriate mood/affect, intact judgment & insight - Neurologic Neurologic: CNII-XII intact, moves all extremities Results - Labs CBC & Chem 7: 05/07/16 09:37 05/07/16 09:37 Labs: Laboratory Last Values WBC 9.4 K/mm3 (4.5-11.0) 05/07/16 09:37 RBC 4.85 M/mm3 (3.65-5.03) 05/07/16 09:37 Hgb 12.8 gm/dl (11.8-15.2) 05/07/16 09:37 Hct 40.8 % (35.5-45.6) 05/07/16 09:37 MCV 84 fl (84-94) 05/07/16 09:37 MCH 26 pg (28-32) L 05/07/16 09:37 MCHC 31 % (32-34) L 05/07/16 09:37 RDW 14.8 % (13.2-15.2) 05/07/16 09:37 Plt Count 283 K/mm3 (140-440) 05/07/16 09:37 Lymph % (Auto) 14.8 % (13.4-35.0) 05/07/16 09:37 [place] % (Auto) 6.2 % (0.0-7.3) 05/07/16 09:37 Eos % (Auto) 0.9 % (0.0-4.3) 05/07/16 09:37 Baso % (Auto) 0.7 % (0.0-1.8) 05/07/16 09:37 Lymph # 1.4 K/mm3 (1.2-5.4) 05/07/16 09:37 [place] # 0.6 K/mm3 (0.0-0.8) 05/07/16 09:37 Eos # 0.1 K/mm3 (0.0-0.4) 05/07/16 09:37 Baso # 0.1 K/mm3 (0.0-0.1) 05/07/16 09:37 Seg Neutrophils % 77.4 % (40.0-70.0) H 05/07/16 09:37 Seg Neutrophils # 7.3 K/mm3 (1.8-7.7) 05/07/16 09:37 D-Dimer 243.84 ng/mlDDU (0-234) H 05/07/16 10:45 VBG pH 7.099 (7.320-7.420) L* 05/07/16 09:37 Sodium 125 mmol/L (137-145) L 05/07/16 09:37 Potassium 4.9 mmol/L (3.6-5.0) 05/07/16 09:37 Chloride 84.4 mmol/L (98-107) L 05/07/16 09:37 Carbon Dioxide 5 mmol/L (22-30) L* 05/07/16 09:37 Anion Gap 41 mmol/L 05/07/16 09:37 BUN 20 mg/dL (9-20) 05/07/16 09:37 Creatinine 1.4 mg/dL (0.8-1.5) 05/07/16 09:37 Estimated GFR 60 ml/min 05/07/16 09:37 BUN/Creatinine Ratio 14.28 % 05/07/16 09:37 Glucose 638 mg/dL (75-100) H* 05/07/16 09:37 Calcium 8.9 mg/dL (8.4-10.2) 05/07/16 09:37 Phosphorus 4.5 mg/dL (2.5-4.5) 05/07/16 09:37 Magnesium 1.9 mg/dL (1.7-2.3) 05/07/16 09:37 Troponin T 0.041 ng/mL (0.00-0.029) H 05/07/16 09:37 Triglycerides 408 mg/dL (2-149) H 05/07/16 09:37 Cholesterol 178 mg/dL (50-199) 05/07/16 09:37 LDL Cholesterol Direct TNR 05/07/16 09:37 HDL Cholesterol 52 mg/dL (40-59) 05/07/16 09:37 Cholesterol/HDL Ratio 3.42 % 05/07/16 09:37 Assessment and Plan - Patient Problems (1) Elevated d-dimer Current Visit: Yes Status: Acute Plan to address problem: Check CTA chest to rule out PE (2) DKA (diabetic ketoacidosis) Current Visit: Yes Status: Acute Qualifiers: Diabetes mellitus type: D Diabetes mellitus complication detail: D Diabetes mellitus halfway insulin use: D Plan to address problem: Start DKA protocol, IV Fluids hydration, Admit to ICU (3) Elevated troponin Current Visit: Yes Status: Acute Plan to address problem: Cardiology consult, 2 D Echo, ASA, Beta blockers, Follow Troponins
[2016-05-07] MEDS ORDERED: NACL ONE ×2 (12:52→13:46)
[2016-05-07] MEDS ORDERED: LOVENOX SUB-Q SCH (13:00)
[2016-05-07 13:18] LABS: BUN/Creatinine Ratio 16.42; Calcium 8.5 mg/dL (8.4-10.2); Chloride 85.5 mmol/L (98-107); Potassium 5.1 mmol/L (3.6-5.0)
[2016-05-07 13:19] LABS: Creatine Kinase MB 16.2 ng/mL (0.0-4.0)
--- NOTE | 2016-05-07 13:36 | Consultation ---
History of Present Illness Consult date: 05/07/16 Requesting physician: TORREY WIGGINS Consult reason: chest pain History of present illness: The patient is a 30 year old male with a history of insulin dependent diabetes who presented with complaints of chest pain ongoing for the past 2 days. He states the pain has been constant and describes it as a "throbbing" pain across his chest. Associated with shortness of breath and nausea. No vomiting, palpitations or diaphoresis. Troponin level is mildly elevated. VBG pH 7.099. Glucose 638. Triglycerides 408. Echo done 11/2014 showed EF 55-60%. No previous ischemic evaluation. Past History Past Medical History: diabetes Past Surgical History: Other (debridement of staph infection on back and neck) Social history: full code. denies: smoking, alcohol abuse, prescription drug abuse, IV drug use Family history: no significant family history Medications and Allergies Allergies Allergy/AdvReac Type Severity Reaction Status Date / Time acetaminophen [From Tylenol] Allergy Hives Verified 05/07/16 09:20 codeine Allergy Hives Verified 05/07/16 09:20 morphine Allergy Hives Verified 05/07/16 09:20 ondansetron HCl [From Zofran] Allergy Hives Verified 05/07/16 09:20 Home Medications Medication Instructions Recorded Confirmed Last Taken Type Insulin NPH/Regular [NovoLIN 70/30] 20 units SUB-Q DAILY 05/07/16 05/07/16 Unknown History Active Meds: Active Medications Al Hydrox/Mg Hydrox/Simethicone (Alum-Mag Hydrox-Simeth 251-020-27as/5ml) 30 ml PO Q4H PRN PRN Reason: Indigestion Aspirin (Aspirin) 325 mg PO QDAY SHARATH Atenolol (Tenormin) 12.5 mg PO DAILY SHARATH Bisacodyl (Dulcolax) 10 mg AL QDAY PRN PRN Reason: constipation unrelieved by MOM Dextrose (D50w (25gm)) 0 ml IV ONCE PRN PRN Reason: Hypoglycemia Enoxaparin Sodium (Lovenox) 30 mg SUB-Q QDAY [facility] Insulin Human Regular 100 (units/ Sodium Chloride) 100 mls @ 5 mls/hr IV TITR SHARATH; 5 UNITS/HR PRN Reason: Protocol Last Titration: 05/07/16 13:24 Dose: 8 units/hr, 8 mls/hr Magnesium Hydroxide (Milk Of Magnesia) 30 ml PO Q4H PRN PRN Reason: Constipation Review of Systems Constitutional: no fever, no chills Ears, nose, mouth and throat: no nasal congestion, no nasal discharge, no sinus pressure Cardiovascular: chest pain, shortness of breath, no palpitations Respiratory: shortness of breath, no cough, no congestion, no wheezing Gastrointestinal: nausea, no abdominal pain, no vomiting, no diarrhea, no constipation Genitourinary Male: no dysuria, no hematuria Musculoskeletal: no neck stiffness, no neck pain, no myalgias Integumentary: no rash, no pruritis Neurological: no parathesias, no numbness, no tingling, no headaches Endocrine: no cold intolerance, no heat intolerance Hematologic/Lymphatic: no easy bruising, no easy bleeding Allergic/Immunologic: no urticaria, no wheezing Physical Examination Last Vital Signs Temp 97.4 F L 05/07/16 09:14 Pulse 121 H 05/07/16 13:00 Resp 12 05/07/16 13:00 BP 107/70 05/07/16 13:00 Pulse Ox 99 05/07/16 13:00 General appearance: no acute distress HEENT: Positive: Normocephaly, Mucus Membranes Moist Neck: Positive: neck supple, trachea midline Cardiac: Positive: Reg Rate and Rhythm, S1/S2 Lungs: Positive: clear to auscultation Neuro: Positive: Grossly Intact Abdomen: Positive: Soft, Active Bowel Sounds. Negative: Tender Skin: Positive: Clear. Negative: Rash Extremities: Absent: edema Results 05/07/16 09:37 05/07/16 12:47 Cardiac Enzymes 05/07/16 Range/Units 12:47 CK-MB (CK-2) 16.2 H (0.0-4.0) ng/mL Lipids 05/07/16 Range/Units 09:37 Triglycerides 408 H (2-149) mg/dL Cholesterol 178 (50-199) mg/dL HDL Cholesterol 52 (40-59) mg/dL Cholesterol/HDL Ratio 3.42 % CBC 05/07/16 Range/Units 09:37 WBC 9.4 (4.5-11.0) K/mm3 RBC 4.85 (3.65-5.03) M/mm3 Hgb 12.8 (11.8-15.2) gm/dl Hct 40.8 (35.5-45.6) % Plt Count 283 (140-440) K/mm3 Lymph # 1.4 (1.2-5.4) K/mm3 [place] # 0.6 (0.0-0.8) K/mm3 Eos # 0.1 (0.0-0.4) K/mm3 Baso # 0.1 (0.0-0.1) K/mm3 Comprehensive Metabolic Panel 05/07/16 05/07/16 Range/Units 09:37 12:47 Sodium 125 L 124 L (137-145) mmol/L Potassium 4.9 5.1 H (3.6-5.0) mmol/L Chloride 84.4 L 85.5 L (98-107) mmol/L Carbon Dioxide 5 L* 3 L* (22-30) mmol/L BUN 20 23 H (9-20) mg/dL Creatinine 1.4 1.4 (0.8-1.5) mg/dL Glucose 638 H* 633 H* (75-100) mg/dL Calcium 8.9 8.5 (8.4-10.2) mg/dL - Imaging and Cardiology Echo: report reviewed (11/2014: EF 55-60%) EKG: image reviewed EKG interpretations - Telemetry EKG Rhythm: Sinus Tachycardia - EKG Sinus rhythms and dysrhythmias: sinus tachycardia Assessment and Plan Atypical chest pain Elevated troponin will trend no acute EKG changes Echo 11/2014: EF 55-60% Lexiscan thallium stress when DKA adequately resolved DKA management per primary Hypertriglyceridemia Will obtain additional sets of enzymes. Lexiscan thallium stress test when DKA adequately resolved. The patient has been seen in conjunction with Dr. Mckeon who agrees with the assessment and plan of care. Thank you Dr. Wiggins for allowing us to participate in the care of this patient.
[2016-05-07] MEDS ORDERED: ULTRAM PO PRN (13:54)
[2016-05-07] MEDS ORDERED: TENORMIN PO SCH (14:00)
[2016-05-07] MEDS ORDERED: NACL 0.9% 1000 ML 1,000 ML IV SCH (14:00)
--- NOTE | 2016-05-07 15:17 | Cat Scan Report ---
CT angiography of the chest with 3-D reconstructed images. Findings: There is no evidence of pulmonary emboli. The lungs are clear. There is no pleural fluid. There is no mediastinal or hilar adenopathy. Impression: Negative study.
[2016-05-07 16:02] LABS: BUN/Creatinine Ratio 15.71; Calcium 8.2 mg/dL (8.4-10.2); Chloride 93.4 mmol/L (98-107)
[2016-05-07 16:04] LABS: Creatine Kinase MB 15.1 ng/mL (0.0-4.0)
[2016-05-07] MEDS ORDERED: D5W/0.45% NACL/KCL 20 MEQ 20 MEQ/1,000 ML BAG IV SCH (18:00)
[2016-05-07 21:16] LABS: BUN/Creatinine Ratio 16.36; Blood Urea Nitrogen 18 mg/dL (9-20); Calcium 8.6 mg/dL (8.4-10.2); Carbon Dioxide 12 mmol/L (22-30); Chloride 98.5 mmol/L (98-107); Glucose 167 mg/dL (75-100); Potassium 4.2 mmol/L (3.6-5.0); Sodium 132 mmol/L (137-145)
[2016-05-07 21:17] LABS: Creatine Kinase MB 14.3 ng/mL (0.0-4.0)
[2016-05-07 21:29] LABS: Anion Gap 26 mmol/L
[2016-05-08 00:33] VITALS: BP 87/48
[2016-05-08] MEDS ORDERED: ASPIRIN PO SCH (10:00)
[2016-05-10 23:33] LABS: B-Hydroxybutyrate 12.9 mmol/L (-0.28)
== END 2016-05-08 01:14 | disposition left against medical advice (07) | DRG 313 ==
LOC: ED 08:51 → CC1 12:22
PROVIDERS: ADMIT Internal Medicine; ATTEND Internal Medicine
DX: R07.89 Other chest pain (principal); E10.10 Type 1 diabetes mellitus with ketoacidosis without coma; E78.1 Pure hyperglyceridemia; Z79.4 Long term (current) use of insulin; Z88.6 Allergy status to analgesic agent; Z88.8 Allergy status to other drugs, medicaments and biological substances; Z91.19 Patient's noncompliance with other medical treatment and regimen; Z86.19 Personal history of other infectious and parasitic diseases
CPT/HCPCS: 36415; 71010; 71275; 80048; 80061; 82010; 82550; 82553; 82805; 82962; 83735; 84100; 84484; 85025; 85379; 93005; 93010; 96361; 96372; 96374; 96375; J1650; J1815; J2765; J3010; J7030; Q9967

== ENCOUNTER 2016-05-16 11:47 | Inpatient (IN) | payer SELFPAY ==
[2016-05-16] MEDS ORDERED: NACL 0.9% 1000 ML 1,000 ML ONE (12:14)
[2016-05-16] MEDS ORDERED: NACL 0.9% 1000 ML 1,000 ML IV ONE ×3 (12:38→19:41)
[2016-05-16 12:40] LABS: Bacteria,Urine 1+ /HPF (Negative); Bilirubin,Urine NEG (Negative); Blood,Urine SM (Negative); Ketones,Urine 80 mg/dL (Negative); Leukocyte Esterase,Urine NEG (Negative); Mucus,Urine FEW /HPF; Nitrite,Urine NEG (Negative); Urobilinogen,Urine < 2.0 mg/dL (<2.0)
[2016-05-16 13:19] LABS: Mean Corpuscular HGB Conc 30 % (32-34); Mean Corpuscular Hemoglobin 26 pg (28-32); Mean Corpuscular Volume 88 fl (84-94); Platelet Count 310 K/mm3 (140-440); Red Blood Count 4.43 M/mm3 (3.65-5.03); Red Cell Distribution Width 15.1 % (13.2-15.2)
[2016-05-16 13:21] LABS: Hemoglobin 11.5 gm/dl (11.8-15.2); White Blood Count 21.1 K/mm3 (4.5-11.0)
[2016-05-16 13:29] LABS: BUN/Creatinine Ratio 17.14; Blood Urea Nitrogen 24 mg/dL (9-20); Calcium 8.4 mg/dL (8.4-10.2); Chloride 89.9 mmol/L (98-107); Potassium 5.5 mmol/L (3.6-5.0); Sodium 127 mmol/L (137-145)
[2016-05-16 13:30] LABS: Anion Gap 41 mmol/L
[2016-05-16 13:33] LABS: Carbon Dioxide < 2.0 mmol/L (22-30); Glucose 654 mg/dL (75-100)
[2016-05-16] MEDS ORDERED: D50W (25GM) IV PRN (13:35)
[2016-05-16] MEDS: NovoLIN R 100 UNITS in NACL 0.9% 99 ML IV SCH (13:50)
--- NOTE | 2016-05-16 13:52 | Emergency Department Report ---
ED General Adult HPI - General Chief complaint: Hyperglycemia Stated complaint: CHEST PAIN Time Seen by Provider: 05/16/16 12:38 Source: EMS Mode of arrival: Stretcher Limitations: Altered Mental Status - History of Present Illness Initial comments: 30-year-old male presents to the emergency department via EMS with a reported complaint chest pain. EMS reports that the patient's blood sugar was 541. Patient appears to be altered and unable to give further history. When asked if the patient has been taking his insulin, he shakes his head no. -: unknown Treatments Prior to Arrival: none - Related Data Home Medications Medication Instructions Recorded Confirmed Last Taken Insulin NPH/Regular [NovoLIN 70/30] 20 units SUB-Q DAILY 05/07/16 05/07/16 Unknown Allergies Allergy/AdvReac Type Severity Reaction Status Date / Time acetaminophen [From Tylenol] Allergy Hives Verified 05/16/16 12:23 codeine Allergy Hives Verified 05/16/16 12:23 morphine Allergy Hives Verified 05/16/16 12:23 ondansetron HCl [From Zofran] Allergy Hives Verified 05/16/16 12:23 ED Review of Systems ROS: Stated complaint: CHEST PAIN Other details as noted in HPI Comment: Unobtainable due to pts medical conditions ED Past Medical Hx - Past Medical History Previous Medical History?: Yes Hx Diabetes: Yes Additional medical history: staph infection - Surgical History Past Surgical History?: Yes Additional Surgical History: wound debridement (staph infection)--NECK AND BACK - Family History Family history: no significant - Social History Smoking Status: Unknown if ever smoked Substance Use Type: None - Medications Home Medications: Home Medications Medication Instructions Recorded Confirmed Last Taken Type Insulin NPH/Regular [NovoLIN 70/30] 20 units SUB-Q DAILY 05/07/16 05/07/16 Unknown History ED Physical Exam - General Limitations: Altered Mental Status General appearance: in no apparent distress, lethargic - Head Head exam: Present: atraumatic, normocephalic - Eye Eye exam: Present: normal appearance, PERRL, EOMI - ENT ENT exam: Present: normal exam, normal orophraynx, mucous membranes moist - Neck Neck exam: Present: normal inspection, full ROM. Absent: tenderness - Respiratory Respiratory exam: Present: normal lung sounds bilaterally, respiratory distress (Kussmaul respirations noted) - Cardiovascular Cardiovascular Exam: Present: regular rate, normal rhythm, normal heart sounds - GI/Abdominal GI/Abdominal exam: Present: soft, tenderness (mild generalized tenderness to palpation), normal bowel sounds. Absent: distended, guarding, rebound - Extremities Exam Extremities exam: Present: normal inspection, full ROM. Absent: tenderness - Back Exam Back exam: Present: normal inspection, full ROM. Absent: tenderness - Neurological Exam Neurological exam: Present: other (patient nonverbal at this time with decreased responsiveness). Absent: motor sensory deficit - Skin Skin exam: Present: warm, dry, intact ED Course Vital Signs 05/16/16 12:01 Pulse Rate 90 Respiratory 16 Rate Blood Pressure 99/61 O2 Sat by Pulse 100 Oximetry ED Medical Decision Making - Lab Data Result diagrams: 05/16/16 12:53 05/16/16 12:53 - Medical Decision Making Lab results reviewed. DKA orders and has been implemented. Patient is to be admitted by the hospitalist. - Differential Diagnosis hyperglycemia, DKA, medication noncompliance Critical Care Time: Yes Critical care time in (mins) excluding proc time.: 40 Critical care attestation.: If time is entered above; I have spent that time in minutes in the direct care of this critically ill patient, excluding procedure time. Critical Care Time: The high probability of a clinically significant, sudden or life threatening deterioration of the cardiovascular and metabolic system(s) required my full and direct attention, intervention and personal management. The aggregate critical care time was 40 minutes. This time is in addition to time spent performing reported procedures but includes the following: [x] Data Review and interpretation [x] Patient assessment and monitoring of vital signs [x] Documentation [x] Medication orders and management ED Disposition Clinical Impression: DKA (diabetic ketoacidosis) Qualifiers: Diabetes mellitus type: type 1 Diabetes mellitus complication detail: with coma Qualified Code(s): E10.11 - Type 1 diabetes mellitus with ketoacidosis with coma Disposition: OP ADMITTED IP TO THIS HOSP Is pt being admited?: Yes Condition: Stable Instructions: Diabetes Mellitus Type 2 in Adults (ED) Referrals: PRIMARY CARE,MD [Primary Care Provider] - 3-5 Days Time of Disposition: 14:08
[2016-05-16 13:53] LABS: Anisocytosis 1+; Basophils % (Manual) 0 % (0.0-1.8); Blastocytes % (Manual) 0 %; Diff Status Complete; Eosinophils % (Manual) 0 % (0.0-4.3); Large Platelets Few; Ovalocytes Few; Polychromasia 1+; Tear Drop Cells Rare
[2016-05-16 14:10] LABS: Magnesium 2.4 mg/dL (1.7-2.3); Phosphorous 5.9 mg/dL (2.5-4.5)
[2016-05-16 17:34] LABS: BUN/Creatinine Ratio 18.46; Blood Urea Nitrogen 24 mg/dL (9-20); Calcium 7.7 mg/dL (8.4-10.2); Chloride 98.2 mmol/L (98-107); Glucose 462 mg/dL (75-100); Potassium 4.1 mmol/L (3.6-5.0); Sodium 131 mmol/L (137-145)
[2016-05-16 17:51] LABS: Anion Gap 35 mmol/L
[2016-05-16 17:52] LABS: Carbon Dioxide < 2 mmol/L (22-30)
[2016-05-16] MEDS ORDERED: D5W/0.45% NACL/KCL 20 MEQ 20 MEQ/1,000 ML BAG IV SCH (18:00)
[2016-05-16 18:02] LABS: Phosphorous 5.9 mg/dL (2.5-4.5)
[2016-05-16 18:03] LABS: Magnesium 2.4 mg/dL (1.7-2.3)
[2016-05-16] MEDS: NACL 0.9% 1000 ML 1,000 ML IV SCH (20:41)
[2016-05-16 21:39] LABS: Blood Urea Nitrogen 24 mg/dL (9-20); Calcium 7.5 mg/dL (8.4-10.2); Chloride 106.9 mmol/L (98-107); Glucose 252 mg/dL (75-100); Sodium 135 mmol/L (137-145)
[2016-05-16 21:44] LABS: Anion Gap 26 mmol/L
[2016-05-16 22:14] LABS: Carbon Dioxide 6 mmol/L (22-30)
--- NOTE | 2016-05-16 22:32 | History and Physical Report ---
History of Present Illness Date of examination: 05/16/16 Date of admission: 05/16/16 14:08 Chief complaint: High BG levels per ENS History of present illness: 30 y/o male with Type ! DM and non compliant calls EMS b/c of altered sensorium anddd gen weakness.No fever or chills.Not been taking insulin. No fever or chillsNo SOB.No recent travel Past History Past Medical History: diabetes (Juvenile) Past Surgical History: No surgical history Social history: denies: smoking, alcohol abuse Family history: no significant family history Medications and Allergies Allergies Allergy/AdvReac Type Severity Reaction Status Date / Time codeine Allergy Hives Verified 05/16/16 12:23 morphine Allergy Hives Verified 05/16/16 12:23 ondansetron HCl [From Zofran] Allergy Hives Verified 05/16/16 12:23 Home Medications Medication Instructions Recorded Confirmed Last Taken Type Insulin NPH/Regular [NovoLIN 70/30] 20 units SUB-Q DAILY 05/07/16 05/16/16 Unknown History Active Meds: Active Medications Dextrose (D50w (25gm)) 0 ml IV PRN PRN PRN Reason: Hypoglycemia Insulin Human Regular 100 (units/ Sodium Chloride) 100 mls @ 1 mls/hr IV TITR SHARATH; 1 UNITS/HR PRN Reason: Protocol Last Titration: 05/16/16 22:13 Dose: 5 units/hr, 5 mls/hr Sodium Chloride (Nacl 0.9% 1000 Ml) 1,000 mls @ 150 mls/hr IV DIRECT SHARATH Last Admin: 05/16/16 20:41 Dose: 150 mls/hr Review of Systems All systems: negative Exam - Constitutional Vitals: Temp Pulse Resp BP Pulse Ox 97.4 F L 97 H 10 L 84/49 98 05/16/16 22:08 05/16/16 21:00 05/16/16 21:00 05/16/16 21:00 05/16/16 20:45 General appearance: Present: no acute distress - EENT Eyes: Present: PERRL, EOM intact ENT: hearing intact, clear oral mucosa, dentition normal, hearing decreased - Respiratory Respiratory effort: normal Respiratory: bilateral: CTA - Cardiovascular Rhythm: regular - Extremities Extremities: no ischemia, pulses intact, pulses symmetrical - Abdominal General gastrointestinal: Present: soft, non-tender, non-distended Results - Labs CBC & Chem 7: 05/16/16 12:53 05/17/16 05:45 Labs: Laboratory Last Values WBC 21.1 K/mm3 (4.5-11.0) H 05/16/16 12:53 RBC 4.43 M/mm3 (3.65-5.03) 05/16/16 12:53 Hgb 11.5 gm/dl (11.8-15.2) L 05/16/16 12:53 Hct 39.0 % (35.5-45.6) 05/16/16 12:53 MCV 88 fl (84-94) 05/16/16 12:53 MCH 26 pg (28-32) L 05/16/16 12:53 MCHC 30 % (32-34) L 05/16/16 12:53 RDW 15.1 % (13.2-15.2) 05/16/16 12:53 Plt Count 310 K/mm3 (140-440) 05/16/16 12:53 Add Manual Diff Complete 05/16/16 12:53 Total Counted 100 05/16/16 12:53 Seg Neuts % (Manual) 68.0 % (40.0-70.0) 05/16/16 12:53 Band Neutrophils % 21.0 % 05/16/16 12:53 Lymphocytes % (Manual) 4.0 % (13.4-35.0) L 05/16/16 12:53 Reactive Lymphs % (Man) 0 % 05/16/16 12:53 Monocytes % (Manual) 5.0 % (0.0-7.3) 05/16/16 12:53 Eosinophils % (Manual) 0 % (0.0-4.3) 05/16/16 12:53 Basophils % (Manual) 0 % (0.0-1.8) 05/16/16 12:53 Metamyelocytes % 2.0 % 05/16/16 12:53 Myelocytes % 0 % 05/16/16 12:53 Promyelocytes % 0 % 05/16/16 12:53 Blast Cells % 0 % 05/16/16 12:53 Nucleated RBC % Not Reportable 05/16/16 12:53 Seg Neutrophils # Man 14.3 K/mm3 (1.8-7.7) H 05/16/16 12:53 Band Neutrophils # 4.4 K/mm3 05/16/16 12:53 Lymphocytes # (Manual) 0.8 K/mm3 (1.2-5.4) L 05/16/16 12:53 Abs React Lymphs (Man) 0.0 K/mm3 05/16/16 12:53 Monocytes # (Manual) 1.1 K/mm3 (0.0-0.8) H 05/16/16 12:53 Eosinophils # (Manual) 0.0 K/mm3 (0.0-0.4) 05/16/16 12:53 Basophils # (Manual) 0.0 K/mm3 (0.0-0.1) 05/16/16 12:53 Metamyelocytes # 0.4 K/mm3 05/16/16 12:53 Myelocytes # 0.0 K/mm3 05/16/16 12:53 Promyelocytes # 0.0 K/mm3 05/16/16 12:53 Blast Cells # 0.0 K/mm3 05/16/16 12:53 WBC Morphology Not Reportable 05/16/16 12:53 Hypersegmented Neuts Not Reportable 05/16/16 12:53 Hyposegmented Neuts Not Reportable 05/16/16 12:53 Hypogranular Neuts Not Reportable 05/16/16 12:53 Smudge Cells Not Reportable 05/16/16 12:53 Toxic Granulation Not Reportable 05/16/16 12:53 Toxic Vacuolation Not Reportable 05/16/16 12:53 Dohle Bodies Not Reportable 05/16/16 12:53 Pelger-Huet Anomaly Not Reportable 05/16/16 12:53 Gloria Rods Not Reportable 05/16/16 12:53 Platelet Estimate Appears normal 05/16/16 12:53 Clumped Platelets Not Reportable 05/16/16 12:53 Plt Clumps, EDTA Not Reportable 05/16/16 12:53 Large Platelets Few 05/16/16 12:53 Giant Platelets Not Reportable 05/16/16 12:53 Platelet Satelliting Not Reportable 05/16/16 12:53 Plt Morphology Comment Not Reportable 05/16/16 12:53 RBC Morphology Not Reportable 05/16/16 12:53 Dimorphic RBCs Not Reportable 05/16/16 12:53 Polychromasia 1+ 05/16/16 12:53 Hypochromasia Not Reportable 05/16/16 12:53 Poikilocytosis Not Reportable 05/16/16 12:53 Anisocytosis 1+ 05/16/16 12:53 Microcytosis Not Reportable 05/16/16 12:53 Macrocytosis Not Reportable 05/16/16 12:53 Spherocytes Not Reportable 05/16/16 12:53 Pappenheimer Bodies Not Reportable 05/16/16 12:53 Sickle Cells Not Reportable 05/16/16 12:53 Target Cells Not Reportable 05/16/16 12:53 Tear Drop Cells Rare 05/16/16 12:53 Ovalocytes Few 05/16/16 12:53 Helmet Cells Not Reportable 05/16/16 12:53 G[place] Bodies Not Reportable 05/16/16 12:53 [place] Rings Not Reportable 05/16/16 12:53 Aicha Cells Not Reportable 05/16/16 12:53 Bite Cells Not Reportable 05/16/16 12:53 Crenated Cell Not Reportable 05/16/16 12:53 Elliptocytes Not Reportable 05/16/16 12:53 Acanthocytes (Spur) Not Reportable 05/16/16 12:53 Rouleaux Not Reportable 05/16/16 12:53 Hemoglobin C Crystals Not Reportable 05/16/16 12:53 Schistocytes Not Reportable 05/16/16 12:53 Malaria parasites Not Reportable 05/16/16 12:53 Matt Bodies Not Reportable 05/16/16 12:53 Hem Pathologist Commnt No 05/16/16 12:53 VBG pH 6.839 (7.320-7.420) L* 05/16/16 13:21 Sodium 135 mmol/L (137-145) L 05/16/16 20:58 Potassium 4.0 mmol/L (3.6-5.0) 05/16/16 20:58 Chloride 106.9 mmol/L (98-107) 05/16/16 20:58 Carbon Dioxide 6 mmol/L (22-30) L* 05/16/16 20:58 Anion Gap 26 mmol/L 05/16/16 20:58 BUN 24 mg/dL (9-20) H 05/16/16 20:58 Creatinine 1.2 mg/dL (0.8-1.5) 05/16/16 20:58 Estimated GFR > 60 ml/min 05/16/16 20:58 BUN/Creatinine Ratio 20.00 % 05/16/16 20:58 Glucose 252 mg/dL (75-100) H 05/16/16 20:58 POC Glucose 217 (70-105) H 05/16/16 21:59 Calcium 7.5 mg/dL (8.4-10.2) L 05/16/16 20:58 Phosphorus 5.9 mg/dL (2.5-4.5) H 05/16/16 17:00 Magnesium 2.4 mg/dL (1.7-2.3) H 05/16/16 17:00 Urine Color Straw (Yellow) 05/16/16 12:26 Urine Turbidity Clear (Clear) 05/16/16 12:26 Urine pH 5.0 (5.0-7.0) 05/16/16 12:26 Ur Specific [place] 1.016 (1.003-1.030) 05/16/16 12:26 Urine Protein 30 mg/dl mg/dL (Negative) 05/16/16 12:26 Urine Glucose (UA) >=500 mg/dL (Negative) 05/16/16 12:26 Urine Ketones 80 mg/dL (Negative) 05/16/16 12:26 Urine Blood Sm (Negative) 05/16/16 12:26 Urine Nitrite Neg (Negative) 05/16/16 12:26 Urine Bilirubin Neg (Negative) 05/16/16 12:26 Urine Urobilinogen < 2.0 mg/dL (<2.0) 05/16/16 12:26 Ur Leukocyte Esterase Neg (Negative) 05/16/16 12:26 Urine WBC (Auto) 2.0 /HPF (0.0-6.0) 05/16/16 12:26 Urine RBC (Auto) 1.0 /HPF (0.0-6.0) 05/16/16 12:26 U Epithel Cells (Auto) < 1.0 /HPF (0-13.0) 05/16/16 12:26 Urine Bacteria (Auto) 1+ /HPF (Negative) 05/16/16 12:26 Urine Mucus Few /HPF 05/16/16 12:26 - Imaging and Cardiology EKG: report reviewed Assessment and Plan Advance Directives: Yes (full cod) VTE prophylaxis?: Chemical Plan of care discussed with patient/family: Yes - Patient Problems (1) DKA (diabetic ketoacidosis) Current Visit: Yes Status: Acute Qualifiers: Diabetes mellitus type: type 1 Diabetes mellitus complication detail: with coma Diabetes mellitus penitentiary insulin use: D Qualified Code(s): E10.11 - Type 1 diabetes mellitus with ketoacidosis with coma Plan to address problem: DKA protocolD (2) Hx of leukocytosis Current Visit: Yes Status: Acute Plan to address problem: possible sepsis.Empiric ABX (3) DVT prophylaxis Current Visit: Yes Status: Acute Plan to address problem: on lovenox
[2016-05-17] MEDS: NACL 0.9% 1000 ML 1,000 ML IV SCH ×2 (03:02→09:49)
[2016-05-17] MEDS: TYLENOL PO PRN ×3 (06:02→16:33)
[2016-05-17 06:10] LABS: Anion Gap 21 mmol/L; Blood Urea Nitrogen 24 mg/dL (9-20); Calcium 7.7 mg/dL (8.4-10.2); Carbon Dioxide 10 mmol/L (22-30); Chloride 113.8 mmol/L (98-107); Glucose 99 mg/dL (75-100); Potassium 3.9 mmol/L (3.6-5.0); Sodium 141 mmol/L (137-145)
[2016-05-17] MEDS: NovoLIN R 100 UNITS in NACL 0.9% 99 ML IV SCH (09:50)
[2016-05-17] MEDS: ROCEPHIN/NS 2 GM/100 ML 2 GM/100 ML BAG IV SCH (09:50)
--- NOTE | 2016-05-17 10:02 | Progress Note ---
Assessment and Plan Assessment and plan: --Diabetic ketoacidosis Secondary to noncompliance On insulin drip, titrate discontinue We will start long-acting 7030 insulin once blood sugars are reasonable level and anion gap is closed 7030 Novolin 8 units twice a day, and we will initiate Accu-Chek and sliding scale coverage high-dose casein the chest 1800-calorie ADA diet --Dehydration/severe acidosis Aggressive IV fluids, add sodium bicarbonate, closely monitor electrolytes Encourage plenty oral fluids --Hypokalemia Replace per protocol and monitor levels --UTI , empiric antibiotics Follow cultures --Type 1 diabetes mellitus, Noncompliant, Counseled the importance of adhering to the treatment and diet plan, patient verbalized understanding His hemoglobin A1c 3 months ago and was 12 --DVT prophylaxis, add Lovenox We will closely monitor the patient adjust management as needed If blood sugars are reasonable levels by today evening, patient can be transferred out of ICU Plan of care discussed with the patient as well as his nurse Critical care time 32 min History Interval history: Patient seen and evaluated in his room in the ICU this morning medical records reviewed Admitted with diabetic ketoacidosis secondary to noncompliance with insulin, on insulin drip Patient feels slightly better, sugars are reasonable levels, severe acidosis the time of admission now slightly improved Alert awake oriented 3 not in acute distress, vital signs reviewed Hospitalist Physical - Constitutional Vitals: Temp Pulse Resp BP Pulse Ox 98.0 F 111 H 16 87/41 97 05/17/16 08:00 05/17/16 08:45 05/17/16 08:45 05/17/16 08:45 05/17/16 08:45 General appearance: Present: no acute distress, cachectic, other (dehydrated ) - EENT Eyes: Present: PERRL, EOM intact - Neck Neck: Present: supple, normal ROM - Respiratory Respiratory effort: normal Respiratory: negative: rales, rhonchi, wheezing - Cardiovascular Rhythm: regular Heart Sounds: Present: S1 & S2 - Extremities Extremities: no ischemia, pulses intact, pulses symmetrical Peripheral Pulses: within normal limits - Abdominal General gastrointestinal: soft, non-tender, non-distended, normal bowel sounds - Integumentary Integumentary: Present: clear, warm - Psychiatric Psychiatric: appropriate mood/affect, cooperative - Neurologic Neurologic: CNII-XII intact, moves all extremities Results - Labs CBC & Chem 7: 05/16/16 12:53 05/17/16 13:30 Labs: Laboratory Last Values WBC 21.1 K/mm3 (4.5-11.0) H 05/16/16 12:53 RBC 4.43 M/mm3 (3.65-5.03) 05/16/16 12:53 Hgb 11.5 gm/dl (11.8-15.2) L 05/16/16 12:53 Hct 39.0 % (35.5-45.6) 05/16/16 12:53 MCV 88 fl (84-94) 05/16/16 12:53 MCH 26 pg (28-32) L 05/16/16 12:53 MCHC 30 % (32-34) L 05/16/16 12:53 RDW 15.1 % (13.2-15.2) 05/16/16 12:53 Plt Count 310 K/mm3 (140-440) 05/16/16 12:53 Add Manual Diff Complete 05/16/16 12:53 Total Counted 100 05/16/16 12:53 Seg Neuts % (Manual) 68.0 % (40.0-70.0) 05/16/16 12:53 Band Neutrophils % 21.0 % 05/16/16 12:53 Lymphocytes % (Manual) 4.0 % (13.4-35.0) L 05/16/16 12:53 Reactive Lymphs % (Man) 0 % 05/16/16 12:53 Monocytes % (Manual) 5.0 % (0.0-7.3) 05/16/16 12:53 Eosinophils % (Manual) 0 % (0.0-4.3) 05/16/16 12:53 Basophils % (Manual) 0 % (0.0-1.8) 05/16/16 12:53 Metamyelocytes % 2.0 % 05/16/16 12:53 Myelocytes % 0 % 05/16/16 12:53 Promyelocytes % 0 % 05/16/16 12:53 Blast Cells % 0 % 05/16/16 12:53 Nucleated RBC % Not Reportable 05/16/16 12:53 Seg Neutrophils # Man 14.3 K/mm3 (1.8-7.7) H 05/16/16 12:53 Band Neutrophils # 4.4 K/mm3 05/16/16 12:53 Lymphocytes # (Manual) 0.8 K/mm3 (1.2-5.4) L 05/16/16 12:53 Abs React Lymphs (Man) 0.0 K/mm3 05/16/16 12:53 Monocytes # (Manual) 1.1 K/mm3 (0.0-0.8) H 05/16/16 12:53 Eosinophils # (Manual) 0.0 K/mm3 (0.0-0.4) 05/16/16 12:53 Basophils # (Manual) 0.0 K/mm3 (0.0-0.1) 05/16/16 12:53 Metamyelocytes # 0.4 K/mm3 05/16/16 12:53 Myelocytes # 0.0 K/mm3 05/16/16 12:53 Promyelocytes # 0.0 K/mm3 05/16/16 12:53 Blast Cells # 0.0 K/mm3 05/16/16 12:53 WBC Morphology Not Reportable 05/16/16 12:53 Hypersegmented Neuts Not Reportable 05/16/16 12:53 Hyposegmented Neuts Not Reportable 05/16/16 12:53 Hypogranular Neuts Not Reportable 05/16/16 12:53 Smudge Cells Not Reportable 05/16/16 12:53 Toxic Granulation Not Reportable 05/16/16 12:53 Toxic Vacuolation Not Reportable 05/16/16 12:53 Dohle Bodies Not Reportable 05/16/16 12:53 Pelger-Huet Anomaly Not Reportable 05/16/16 12:53 Gloria Rods Not Reportable 05/16/16 12:53 Platelet Estimate Appears normal 05/16/16 12:53 Clumped Platelets Not Reportable 05/16/16 12:53 Plt Clumps, EDTA Not Reportable 05/16/16 12:53 Large Platelets Few 05/16/16 12:53 Giant Platelets Not Reportable 05/16/16 12:53 Platelet Satelliting Not Reportable 05/16/16 12:53 Plt Morphology Comment Not Reportable 05/16/16 12:53 RBC Morphology Not Reportable 05/16/16 12:53 Dimorphic RBCs Not Reportable 05/16/16 12:53 Polychromasia 1+ 05/16/16 12:53 Hypochromasia Not Reportable 05/16/16 12:53 Poikilocytosis Not Reportable 05/16/16 12:53 Anisocytosis 1+ 05/16/16 12:53 Microcytosis Not Reportable 05/16/16 12:53 Macrocytosis Not Reportable 05/16/16 12:53 Spherocytes Not Reportable 05/16/16 12:53 Pappenheimer Bodies Not Reportable 05/16/16 12:53 Sickle Cells Not Reportable 05/16/16 12:53 Target Cells Not Reportable 05/16/16 12:53 Tear Drop Cells Rare 05/16/16 12:53 Ovalocytes Few 05/16/16 12:53 Helmet Cells Not Reportable 05/16/16 12:53 [place] Bodies Not Reportable 05/16/16 12:53 [place] Rings Not Reportable 05/16/16 12:53 [place] Cells Not Reportable 05/16/16 12:53 Bite Cells Not Reportable 05/16/16 12:53 Crenated Cell Not Reportable 05/16/16 12:53 Elliptocytes Not Reportable 05/16/16 12:53 Acanthocytes (Spur) Not Reportable 05/16/16 12:53 Rouleaux Not Reportable 05/16/16 12:53 Hemoglobin C Crystals Not Reportable 05/16/16 12:53 Schistocytes Not Reportable 05/16/16 12:53 Malaria parasites Not Reportable 05/16/16 12:53 Matt Bodies Not Reportable 05/16/16 12:53 Hem Pathologist Commnt No 05/16/16 12:53 VBG pH 6.839 (7.320-7.420) L* 05/16/16 13:21 Sodium 141 mmol/L (137-145) 05/17/16 05:45 Potassium 3.9 mmol/L (3.6-5.0) 05/17/16 05:45 Chloride 113.8 mmol/L (98-107) H 05/17/16 05:45 Carbon Dioxide 10 mmol/L (22-30) L 05/17/16 05:45 Anion Gap 21 mmol/L 05/17/16 05:45 BUN 24 mg/dL (9-20) H 05/17/16 05:45 Creatinine 1.2 mg/dL (0.8-1.5) 05/17/16 05:45 Estimated GFR > 60 ml/min 05/17/16 05:45 BUN/Creatinine Ratio 20.00 % 05/17/16 05:45 Glucose 99 mg/dL (75-100) 05/17/16 05:45 POC Glucose 345 (70-105) H 05/17/16 09:07 Calcium 7.7 mg/dL (8.4-10.2) L 05/17/16 05:45 Phosphorus 5.9 mg/dL (2.5-4.5) H 05/16/16 17:00 Magnesium 2.4 mg/dL (1.7-2.3) H 05/16/16 17:00 Urine Color Straw (Yellow) 05/16/16 12:26 Urine Turbidity Clear (Clear) 05/16/16 12:26 Urine pH 5.0 (5.0-7.0) 05/16/16 12:26 Ur Specific [place] 1.016 (1.003-1.030) 05/16/16 12:26 Urine Protein 30 mg/dl mg/dL (Negative) 05/16/16 12:26 Urine Glucose (UA) >=500 mg/dL (Negative) 05/16/16 12:26 Urine Ketones 80 mg/dL (Negative) 05/16/16 12:26 Urine Blood Sm (Negative) 05/16/16 12:26 Urine Nitrite Neg (Negative) 05/16/16 12:26 Urine Bilirubin Neg (Negative) 05/16/16 12:26 Urine Urobilinogen < 2.0 mg/dL (<2.0) 05/16/16 12:26 Ur Leukocyte Esterase Neg (Negative) 05/16/16 12:26 Urine WBC (Auto) 2.0 /HPF (0.0-6.0) 05/16/16 12:26 Urine RBC (Auto) 1.0 /HPF (0.0-6.0) 05/16/16 12:26 U Epithel Cells (Auto) < 1.0 /HPF (0-13.0) 05/16/16 12:26 Urine Bacteria (Auto) 1+ /HPF (Negative) 05/16/16 12:26 Urine Mucus Few /HPF 05/16/16 12:26
--- NOTE | 2016-05-17 13:40 | Consultation ---
History of Present Illness Consult date: 05/17/16 Requesting physician: JIMBO RIOS Reason for consult: other (DKA) Past History Past Medical History: diabetes (Juvenile) Past Surgical History: No surgical history Social history: denies: smoking, alcohol abuse Family history: no significant family history Medications and Allergies Allergies Allergy/AdvReac Type Severity Reaction Status Date / Time codeine Allergy Hives Verified 05/16/16 12:23 morphine Allergy Hives Verified 05/16/16 12:23 ondansetron HCl [From Zofran] Allergy Hives Verified 05/16/16 12:23 Home Medications Medication Instructions Recorded Confirmed Last Taken Type Insulin NPH/Regular [NovoLIN 70/30] 20 units SUB-Q DAILY 05/07/16 05/16/16 Unknown History Active Meds: Active Medications Acetaminophen (Tylenol) 650 mg PO Q4H PRN PRN Reason: Pain, Mild (1-3) Last Admin: 05/17/16 06:02 Dose: 650 mg Dextrose (D50w (25gm)) 0 ml IV PRN PRN PRN Reason: Hypoglycemia Insulin Human Regular 100 (units/ Sodium Chloride) 100 mls @ 1 mls/hr IV TITR SHARTAH; 1 UNITS/HR PRN Reason: Protocol Last Titration: 05/17/16 12:00 Dose: 6 units/hr, 6 mls/hr Ceftriaxone Sodium (Rocephin/Ns 2 Gm/100 Ml) 2 gm in 100 mls @ 200 mls/hr IV Q24HR SHARATH PRN Reason: Protocol Last Admin: 05/17/16 09:50 Dose: 200 mls/hr Sodium Bicarbonate 50 meq/ (Sodium Chloride) 1,050 mls @ 150 mls/hr IV DIRECT SHARATH Physical Examination Vital signs: Vital Signs Pulse Resp BP Pulse Ox 90 16 99/61 100 05/16/16 12:01 05/16/16 12:01 05/16/16 12:01 05/16/16 12:01 Results - Laboratory Findings CBC and BMP: 05/16/16 12:53 05/17/16 05:45 Abnormal lab findings: Abnormal Labs 05/16/16 05/16/16 05/16/16 14:56 15:53 16:57 Sodium Chloride Carbon Dioxide BUN Glucose POC Glucose > 500 H 445 H 427 H Calcium Phosphorus Magnesium 05/16/16 05/16/16 05/16/16 17:00 17:00 18:08 Sodium 131 L Chloride Carbon Dioxide < 2 L* BUN 24 H Glucose 462 H POC Glucose 409 H Calcium 7.7 L Phosphorus 5.9 H Magnesium 2.4 H 05/16/16 05/16/16 05/16/16 20:09 20:58 21:03 Sodium 135 L Chloride Carbon Dioxide 6 L* BUN 24 H Glucose 252 H POC Glucose 226 H 261 H Calcium 7.5 L Phosphorus Magnesium 05/16/16 05/16/16 05/17/16 21:59 23:03 00:14 Sodium Chloride Carbon Dioxide BUN Glucose POC Glucose 217 H 155 H 117 H Calcium Phosphorus Magnesium 05/17/16 05/17/16 05/17/16 02:03 02:56 05:03 Sodium Chloride Carbon Dioxide BUN Glucose POC Glucose 115 H 119 H 114 H Calcium Phosphorus Magnesium 05/17/16 05/17/16 05/17/16 05:45 09:07 10:19 Sodium Chloride 113.8 H Carbon Dioxide 10 L BUN 24 H Glucose POC Glucose 345 H 334 H Calcium 7.7 L Phosphorus Magnesium 05/17/16 12:16 Sodium Chloride Carbon Dioxide BUN Glucose POC Glucose 309 H Calcium Phosphorus Magnesium
[2016-05-17 14:09] LABS: Anion Gap 16 mmol/L; Blood Urea Nitrogen 21 mg/dL (9-20); Calcium 8.2 mg/dL (8.4-10.2); Carbon Dioxide 13 mmol/L (22-30); Chloride 107.1 mmol/L (98-107); Glucose 186 mg/dL (75-100); Potassium 3.3 mmol/L (3.6-5.0); Sodium 133 mmol/L (137-145)
[2016-05-17] MEDS ORDERED: K-DUR PO ONE (14:25)
[2016-05-17] MEDS: NACL 0.9% 1000 ML 1,000 ML with SODIUM BICARBONATE 50 MEQ IV SCH ×2 (14:48→23:30)
[2016-05-17] MEDS: NOVOLOG SUB-Q SCH ×2 (16:53→22:01)
[2016-05-17] MEDS: LOVENOX SUB-Q SCH (22:00)
[2016-05-17] MEDS: PEPCID PO SCH (22:01)
[2016-05-18] MEDS: TYLENOL PO PRN ×2 (01:55→08:17)
[2016-05-18 04:37] LABS: Basophils % (Auto) 0.2 % (0.0-1.8); Eosinophils % (Auto) 0.5 % (0.0-4.3); Hematocrit 25.9 % (35.5-45.6); Hemoglobin 8.9 gm/dl (11.8-15.2); Mean Corpuscular HGB Conc 34 % (32-34); Mean Corpuscular Hemoglobin 26 pg (28-32); Mean Corpuscular Volume 77 fl (84-94); Platelet Count 146 K/mm3 (140-440); Red Blood Count 3.37 M/mm3 (3.65-5.03); Red Cell Distribution Width 14.8 % (13.2-15.2); White Blood Count 7.5 K/mm3 (4.5-11.0)
[2016-05-18 04:51] LABS: Anion Gap 17 mmol/L; Blood Urea Nitrogen 17 mg/dL (9-20); Calcium 7.8 mg/dL (8.4-10.2); Carbon Dioxide 15 mmol/L (22-30); Chloride 104.1 mmol/L (98-107); Glucose 295 mg/dL (75-100); Magnesium 1.6 mg/dL (1.7-2.3); Phosphorous 1.7 mg/dL (2.5-4.5); Potassium 3.7 mmol/L (3.6-5.0); Sodium 132 mmol/L (137-145)
--- NOTE | 2016-05-18 07:28 | Progress Note ---
Assessment and Plan Assessment and plan: --Diabetic ketoacidosis/corrected Secondary to noncompliance Has mild acidosis, continue to address IV hydration --Dehydration/severe acidosis Aggressive IV fluids, closely monitor electrolytes Encourage plenty oral fluids --Hypomagnesemia, hypophosphatemia Replace per protocol and monitor levels --Infected scalp wound Possible staph, local wound care, handwashing We'll add oral antibiotics clindamycin --UTI , empiric antibiotics Follow cultures --Type 1 diabetes mellitus, Noncompliant, Counseled the importance of adhering to the treatment and diet plan, patient verbalized understanding His hemoglobin A1c 3 months ago and was 12 --DVT prophylaxis, add Lovenox Patient can be transferred out of ICU Diabetic education , DC planning. Case management possible home health nurse to monitor diabetes Plan of care discussed with the patient as well as his nurse. History Interval history: Patient seen and evaluated medical records reviewed No new events reported by the nursing staff Patient blood sugars are reasonable control, tolerating oral nutrition Alert awake oriented 3 not in acute distress Hospitalist Physical - Constitutional Vitals: Temp Pulse Resp BP Pulse Ox 97.8 F 100 H 13 107/72 97 05/18/16 04:00 05/18/16 07:00 05/18/16 07:00 05/18/16 07:00 05/18/16 07:00 General appearance: Present: no acute distress, other ( thin built) - EENT Eyes: Present: PERRL, EOM intact - Neck Neck: Present: supple, normal ROM - Respiratory Respiratory effort: normal Respiratory: negative: rales, rhonchi, wheezing - Cardiovascular Rhythm: regular Heart Sounds: Present: S1 & S2 - Extremities Extremities: no ischemia, pulses intact, pulses symmetrical Peripheral Pulses: within normal limits - Abdominal General gastrointestinal: soft, non-tender, non-distended, normal bowel sounds - Integumentary Integumentary: Present: rash (patient has a infected ulcer in the scalp) - Psychiatric Psychiatric: appropriate mood/affect, cooperative - Neurologic Neurologic: CNII-XII intact, moves all extremities Results - Labs CBC & Chem 7: 05/18/16 04:04 05/18/16 04:04 Labs: Laboratory Last Values WBC 7.5 K/mm3 (4.5-11.0) 05/18/16 04:04 RBC 3.37 M/mm3 (3.65-5.03) L 05/18/16 04:04 Hgb 8.9 gm/dl (11.8-15.2) L 05/18/16 04:04 Hct 25.9 % (35.5-45.6) L D 05/18/16 04:04 MCV 77 fl (84-94) L D 05/18/16 04:04 MCH 26 pg (28-32) L 05/18/16 04:04 MCHC 34 % (32-34) 05/18/16 04:04 RDW 14.8 % (13.2-15.2) 05/18/16 04:04 Plt Count 146 K/mm3 (140-440) 05/18/16 04:04 Lymph % (Auto) 9.4 % (13.4-35.0) L 05/18/16 04:04 [place] % (Auto) 8.7 % (0.0-7.3) H 05/18/16 04:04 Eos % (Auto) 0.5 % (0.0-4.3) 05/18/16 04:04 Baso % (Auto) 0.2 % (0.0-1.8) 05/18/16 04:04 Lymph # 0.7 K/mm3 (1.2-5.4) L 05/18/16 04:04 [place] # 0.7 K/mm3 (0.0-0.8) 05/18/16 04:04 Eos # 0.0 K/mm3 (0.0-0.4) 05/18/16 04:04 Baso # 0.0 K/mm3 (0.0-0.1) 05/18/16 04:04 Add Manual Diff Complete 05/16/16 12:53 Total Counted 100 05/16/16 12:53 Seg Neutrophils % 81.2 % (40.0-70.0) H 05/18/16 04:04 Seg Neuts % (Manual) 68.0 % (40.0-70.0) 05/16/16 12:53 Band Neutrophils % 21.0 % 05/16/16 12:53 Lymphocytes % (Manual) 4.0 % (13.4-35.0) L 05/16/16 12:53 Reactive Lymphs % (Man) 0 % 05/16/16 12:53 Monocytes % (Manual) 5.0 % (0.0-7.3) 05/16/16 12:53 Eosinophils % (Manual) 0 % (0.0-4.3) 05/16/16 12:53 Basophils % (Manual) 0 % (0.0-1.8) 05/16/16 12:53 Metamyelocytes % 2.0 % 05/16/16 12:53 Myelocytes % 0 % 05/16/16 12:53 Promyelocytes % 0 % 05/16/16 12:53 Blast Cells % 0 % 05/16/16 12:53 Nucleated RBC % Not Reportable 05/16/16 12:53 Seg Neutrophils # 6.1 K/mm3 (1.8-7.7) 05/18/16 04:04 Seg Neutrophils # Man 14.3 K/mm3 (1.8-7.7) H 05/16/16 12:53 Band Neutrophils # 4.4 K/mm3 05/16/16 12:53 Lymphocytes # (Manual) 0.8 K/mm3 (1.2-5.4) L 05/16/16 12:53 Abs React Lymphs (Man) 0.0 K/mm3 05/16/16 12:53 Monocytes # (Manual) 1.1 K/mm3 (0.0-0.8) H 05/16/16 12:53 Eosinophils # (Manual) 0.0 K/mm3 (0.0-0.4) 05/16/16 12:53 Basophils # (Manual) 0.0 K/mm3 (0.0-0.1) 05/16/16 12:53 Metamyelocytes # 0.4 K/mm3 05/16/16 12:53 Myelocytes # 0.0 K/mm3 05/16/16 12:53 Promyelocytes # 0.0 K/mm3 05/16/16 12:53 Blast Cells # 0.0 K/mm3 05/16/16 12:53 WBC Morphology Not Reportable 05/16/16 12:53 Hypersegmented Neuts Not Reportable 05/16/16 12:53 Hyposegmented Neuts Not Reportable 05/16/16 12:53 Hypogranular Neuts Not Reportable 05/16/16 12:53 Smudge Cells Not Reportable 05/16/16 12:53 Toxic Granulation Not Reportable 05/16/16 12:53 Toxic Vacuolation Not Reportable 05/16/16 12:53 Dohle Bodies Not Reportable 05/16/16 12:53 Pelger-Huet Anomaly Not Reportable 05/16/16 12:53 Gloria Rods Not Reportable 05/16/16 12:53 Platelet Estimate Appears normal 05/16/16 12:53 Clumped Platelets Not Reportable 05/16/16 12:53 Plt Clumps, EDTA Not Reportable 05/16/16 12:53 Large Platelets Few 05/16/16 12:53 Giant Platelets Not Reportable 05/16/16 12:53 Platelet Satelliting Not Reportable 05/16/16 12:53 Plt Morphology Comment Not Reportable 05/16/16 12:53 RBC Morphology Not Reportable 05/16/16 12:53 Dimorphic RBCs Not Reportable 05/16/16 12:53 Polychromasia 1+ 05/16/16 12:53 Hypochromasia Not Reportable 05/16/16 12:53 Poikilocytosis Not Reportable 05/16/16 12:53 Anisocytosis 1+ 05/16/16 12:53 Microcytosis Not Reportable 05/16/16 12:53 Macrocytosis Not Reportable 05/16/16 12:53 Spherocytes Not Reportable 05/16/16 12:53 Pappenheimer Bodies Not Reportable 05/16/16 12:53 Sickle Cells Not Reportable 05/16/16 12:53 Target Cells Not Reportable 05/16/16 12:53 Tear Drop Cells Rare 05/16/16 12:53 Ovalocytes Few 05/16/16 12:53 Helmet Cells Not Reportable 05/16/16 12:53 [place] Bodies Not Reportable 05/16/16 12:53 [place] Rings Not Reportable 05/16/16 12:53 [place] Cells Not Reportable 05/16/16 12:53 Bite Cells Not Reportable 05/16/16 12:53 Crenated Cell Not Reportable 05/16/16 12:53 Elliptocytes Not Reportable 05/16/16 12:53 Acanthocytes (Spur) Not Reportable 05/16/16 12:53 Rouleaux Not Reportable 05/16/16 12:53 Hemoglobin C Crystals Not Reportable 05/16/16 12:53 Schistocytes Not Reportable 05/16/16 12:53 Malaria parasites Not Reportable 05/16/16 12:53 Matt Bodies Not Reportable 05/16/16 12:53 Hem Pathologist Commnt No 05/16/16 12:53 VBG pH 6.839 (7.320-7.420) L* 05/16/16 13:21 Sodium 132 mmol/L (137-145) L 05/18/16 04:04 Potassium 3.7 mmol/L (3.6-5.0) 05/18/16 04:04 Chloride 104.1 mmol/L (98-107) 05/18/16 04:04 Carbon Dioxide 15 mmol/L (22-30) L 05/18/16 04:04 Anion Gap 17 mmol/L 05/18/16 04:04 BUN 17 mg/dL (9-20) 05/18/16 04:04 Creatinine 1.0 mg/dL (0.8-1.5) 05/18/16 04:04 Estimated GFR > 60 ml/min 05/18/16 04:04 BUN/Creatinine Ratio 17.00 % 05/18/16 04:04 Glucose 295 mg/dL (75-100) H 05/18/16 04:04 POC Glucose 308 (70-105) H 05/17/16 21:27 Calcium 7.8 mg/dL (8.4-10.2) L 05/18/16 04:04 Phosphorus 1.7 mg/dL (2.5-4.5) L D 05/18/16 04:04 Magnesium 1.6 mg/dL (1.7-2.3) L 05/18/16 04:04 Urine Color Straw (Yellow) 05/16/16 12:26 Urine Turbidity Clear (Clear) 05/16/16 12:26 Urine pH 5.0 (5.0-7.0) 05/16/16 12:26 Ur Specific [place] 1.016 (1.003-1.030) 05/16/16 12:26 Urine Protein 30 mg/dl mg/dL (Negative) 05/16/16 12:26 Urine Glucose (UA) >=500 mg/dL (Negative) 05/16/16 12:26 Urine Ketones 80 mg/dL (Negative) 05/16/16 12:26 Urine Blood Sm (Negative) 05/16/16 12:26 Urine Nitrite Neg (Negative) 05/16/16 12:26 Urine Bilirubin Neg (Negative) 05/16/16 12:26 Urine Urobilinogen < 2.0 mg/dL (<2.0) 05/16/16 12:26 Ur Leukocyte Esterase Neg (Negative) 05/16/16 12:26 Urine WBC (Auto) 2.0 /HPF (0.0-6.0) 05/16/16 12:26 Urine RBC (Auto) 1.0 /HPF (0.0-6.0) 05/16/16 12:26 U Epithel Cells (Auto) < 1.0 /HPF (0-13.0) 05/16/16 12:26 Urine Bacteria (Auto) 1+ /HPF (Negative) 05/16/16 12:26 Urine Mucus Few /HPF 05/16/16 12:26
[2016-05-18] MEDS ORDERED: MAGNESIUM SULFATE 2GM/50ML 2 GM/50 ML BAG IV ONE (08:00)
[2016-05-18] MEDS: NOVOLOG SUB-Q SCH ×4 (08:17→21:50)
[2016-05-18] MEDS ORDERED: KPHOS 40 MMOL in NACL 0.9% 500 ML 500 ML IV ONE (08:30)
[2016-05-18] MEDS: PEPCID PO SCH ×2 (09:49→21:35)
[2016-05-18] MEDS: ROCEPHIN/NS 2 GM/100 ML 2 GM/100 ML BAG IV SCH (11:33)
[2016-05-18] MEDS: CLEOCIN PO SCH ×4 (11:33→21:35)
[2016-05-18] MEDS: TRIPLE ANTIBIOTIC TP SCH (14:14)
--- NOTE | 2016-05-18 14:45 | Event Note ---
Date: 05/18/16
--- NOTE | 2016-05-18 16:26 | Admit Criteria Form ---
Admission Criteria Documentation: DIABETES Clinical Indications for Admission to Inpatient Care (Place 'X' for any and all applicable criteria): Admission is indicated by presence of ALL (if I & II) or ANY ONE (if III or IV) of the following (1)(2)(3)(4): [X ]I. Diabetes is uncontrolled as indicated by ANY ONE of the following: [X ]a) Diabetic ketoacidosis as indicated by ALL of the following (8): [X ]i) Hyperglycemia (eg, plasma glucose greater than 200 mg /dL (11.1 mmol/L)) [X ]ii) Acidosis (eg, arterial pH less than 7.30, serum bicarbonate level less than 15 mEq/L (mmol/L)) [X ]iii) Moderate ketonuria or ketonemia [ ]b) Hyperglycemic hyperosmolar state as indicated by ALL of the following(9)(10): [ ]i) Neurologic dysfunction (eg, stupor, coma, hemiparesis , seizure)(13) [ ]ii) Plasma glucose greater than 600 mg/dL (33.3 mmol/L) [ ]iii) Serum osmolality greater than 320 mOsm/kg (mmol/kg) [ ]c) Severe signs or symptoms secondary to hyperglycemia indicated by ANY ONE of the following: [ ]i) Altered mental status(10) [ ]ii) Significant hypovolemia or dehydration [ ]iii) Intractable nausea or vomiting [ ]iv) Unexplained fever or severe infection [ ]v) Severe electrolyte abnormality (eg, hypokalemia, hyperkalemia, hypernatremia) [ X]II. Management at other levels of care (Also use Diabetes: Observation Care as appropriate) is not feasible because of ANY ONE of the following: [ X]a) Condition was not adequately corrected with treatment at other levels of care. [ ]b) Treatment at other levels of care is not appropriate because of condition severity (eg, hyperosmolar coma). [ ]III. Contraindications and/or Inappropriate clinical situations for Observational Care in patients with Diabetes, when ANY ONE of the following is required: [ ]a) Patient require specific diagnostic workup or therapeutic intervention 22 [ ]b) Patient with abnormal vital signs or altered mental status 23 [ ]IV. General contraindications and/or Inappropriate clinical situations for Observational Care in patients with Diabetes, when ANY ONE of the following is required: [ ]a) Prediction of prolongation of LOS based on ANY ONE of the following may be considered as a contraindication for observational care 2, 3, 4, 5, 6, 7, 8, 9, 10, 11 [ ]i) Age > 65 yrs. [ ]ii) Patient arriving by ambulance [ ]iii) Patient with high acuity [ ]iv) Patient requiring vital sign monitoring [ ]v) Patient on IV medication [ ]b) Systolic blood pressures 180mmHg 3,12 [ ]c) Patient with altered mental status including delirium and other alteration of consciousness, (3) [ ]d) Patient whose discharge disposition will be to a long-term home or rehabilitation home should not be managed in Emergency Department Observation Unit. CMS rule requires 3 days hospital stay before such placement.3,13 [ ]e) Patient with failure to thrive due to broad array of etiologies 3,16,17 [ ]f) Inability to ambulate 3,14 Extended stay beyond goal length of stay may be needed for(3)(20): [ ]a) Treatment of precipitating causes [ ]b) Development of hypoglycemia [ ]c) Complications of treatment [ ]d) Complications of decompensated diabetes (eg, acute gastric dilatation, persistent metabolic or neurologic derangement) [ ]e) Active Comorbidities [ ]f) Older patients( 65 years or older) The original [employer] content created by [employer] has been revised. The portions of the content which have been revised are identified through the use of italic text or in bold,and [facility] has neither reviewed nor approved the modified material. All other unmodified content is copyright [employer]. Please see references footnoted in the original [facility] edition 2016 Admission Criteria Met: Yes
[2016-05-18] MEDS: LOVENOX SUB-Q SCH (21:35)
[2016-05-19 07:16] LABS: Basophils % (Auto) 0.3 % (0.0-1.8); Eosinophils % (Auto) 0.5 % (0.0-4.3); Hematocrit 25.9 % (35.5-45.6); Hemoglobin 8.7 gm/dl (11.8-15.2); Mean Corpuscular HGB Conc 34 % (32-34); Mean Corpuscular Hemoglobin 26 pg (28-32); Mean Corpuscular Volume 77 fl (84-94); Platelet Count 128 K/mm3 (140-440); Red Blood Count 3.34 M/mm3 (3.65-5.03); White Blood Count 6.5 K/mm3 (4.5-11.0)
[2016-05-19 07:32] LABS: Anion Gap 16 mmol/L; Blood Urea Nitrogen 12 mg/dL (9-20); Calcium 8.2 mg/dL (8.4-10.2); Carbon Dioxide 19 mmol/L (22-30); Chloride 103.5 mmol/L (98-107); Glucose 306 mg/dL (75-100); Phosphorous 2.9 mg/dL (2.5-4.5); Sodium 134 mmol/L (137-145)
[2016-05-19] MEDS: NOVOLOG SUB-Q SCH ×2 (08:42→12:43)
[2016-05-19] MEDS: TRIPLE ANTIBIOTIC TP SCH ×2 (08:47→14:22)
[2016-05-19] MEDS: TYLENOL PO PRN (08:48)
--- NOTE | 2016-05-19 10:49 | Discharge Summary ---
Providers - Providers Date of Admission: 05/16/16 14:08 Date of discharge: 05/19/16 Attending physician: TAMI PHELAN 05/18/16 10:01 Consult to Wound/ET Nurse [CONS] Routine Reason For Exam: large sore in top head from home that want heal Primary care physician: PRINCIPAL [employer]INEER Hospitalization Reason for admission: altered level of consciousness and generalized weakness and uncontrolled bl Condition: Stable Hospital course: Primary diagnosis; Diabetic ketoacidosis; corrected .type1 diabetes mellitus; moderate control Hypomagnesemia/hypokalemia/hypophosphatemia. Corrected Scalp infection/possible staph stable Urinary tract infection Severe dehydration resolved Medical noncompliance Brief history and hospital course : 30-year-old male patient well-known to the services history of type 1 diabetes mellitus noncompliant with insulin and was admitted through emergency department with altered level of consciousness and generalized weakness Initial workup revealed severe diabetic ketoacidosis, admitted to ICU managed with insulin drip, and aggressive hydration with IV fluids Electrolytes were closely monitored and contacted Urine is consistent with UTI, received empiric antibiotics Patient also has a chronic scalp wound, 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 Counseling done patient advised to comply with medications and diet, verbalized understanding - Disposition: DC/TX HOME UNDER HOME HEALTH Time spent for discharge: 32 min Core Measure Documentation - Palliative Care Palliative Care/ Comfort Measures: Not Applicable - Core Measures Any of the following diagnoses?: none Exam - Constitutional Vitals: Temp Pulse Resp BP Pulse Ox 98.1 F 108 H 18 132/92 95 05/19/16 08:00 05/19/16 08:00 05/19/16 08:48 05/19/16 08:00 05/19/16 08:00 General appearance: Present: no acute distress, well-nourished - EENT Eyes: Present: PERRL, EOM intact - Neck Neck: Present: supple, normal ROM - Respiratory Respiratory effort: normal Respiratory: negative: rales, rhonchi, wheezing - Cardiovascular Rhythm: regular Heart Sounds: Present: S1 & S2 - Extremities Extremities: no ischemia, pulses intact, pulses symmetrical - Abdominal General gastrointestinal: Present: soft, non-tender, non-distended, normal bowel sounds - Integumentary Integumentary: Present: clear, warm - Musculoskeletal Musculoskeletal: strength equal bilaterally - Psychiatric Psychiatric: appropriate mood/affect, cooperative - Neurologic Neurologic: CNII-XII intact, moves all extremities Plan Activity: no restrictions Diet: diabetic Special Instructions: home health RN Additional Instructions: Patient advised to comply with medications and diet. If you have very high sugars or very low sugars, contact M.D. or go to ER Follow up with: PRIMARY CARE, [Primary Care Provider] - 3-5 Days Prescriptions: Clindamycin [Clindamycin CAP] 300 mg PO QID #40 capsule Insulin NPH/Regular [NovoLIN 70/30] 18 units SUB-Q BID 30 Days Insulin Regular, Human [HumuLIN R] 5 units IV QAC 30 Days Neomy/Baci/Polymyx Oint [Triple Antibiotic] 1 applic TP TID #1 tube
[2016-05-19] MEDS: CLEOCIN PO SCH ×2 (11:12→14:21)
[2016-05-19] MEDS: ROCEPHIN/NS 2 GM/100 ML 2 GM/100 ML BAG IV SCH (11:12)
[2016-05-19] MEDS: PEPCID PO SCH (11:12)
[2016-05-19 14:34] VITALS: BP 134/97
== END 2016-05-19 15:15 | disposition home health service (06) | DRG 638 ==
LOC: ED 11:47 → CC1 14:08 → 3A 05-18 18:15
PROVIDERS: ADMIT Internal Medicine; ATTEND Internal Medicine
DX: E10.11 Type 1 diabetes mellitus with ketoacidosis with coma (principal); N39.0 Urinary tract infection, site not specified; E86.0 Dehydration; S01.00XA Unspecified open wound of scalp, initial encounter; E87.6 Hypokalemia; Z91.19 Patient's noncompliance with other medical treatment and regimen; Z88.6 Allergy status to analgesic agent; Z88.8 Allergy status to other drugs, medicaments and biological substances; E83.42 Hypomagnesemia; Z88.5 Allergy status to narcotic agent; E83.39 Other disorders of phosphorus metabolism
CPT/HCPCS: 36415; 80048; 81001; 82805; 82962; 83735; 84100; 85007; 85025; 87086; A6250; J0696; J1650; J1815; J3475; J7030; J7040

== ENCOUNTER 2016-05-27 00:40 | Emergency (ER) | payer SELFPAY ==
[2016-05-27 00:58] VITALS: BP 97/63
--- NOTE | 2016-05-27 02:54 | Emergency Department Report ---
ED General Adult HPI - General Chief complaint: Hyperglycemia Stated complaint: WEAKNESS Time Seen by Provider: 05/27/16 02:48 Source: patient, EMS Mode of arrival: Stretcher Limitations: No Limitations - History of Present Illness Initial comments: This is a pleasant 30-year-old gentleman with a long-standing history of diabetes. He has been in DKA several times in the past. He states that he's had some difficulty keeping his sugars under control this week due to an infection on top of his head. He reports his sugars being in the 300-400 range for most of the week. He has been trying to be aggressive with his insulin as well as his oral intake with fluids. In regards to the lesion on top of his head he reports having a scratch or abrasion of some sort that occurred does ask ago. He states since then it became infected. He was evaluated last week when he was admitted in the hospital for DKA. They did prescribe him some topical ointment. He reports this is not helping. He is having increased drainage and expansion of the wound. No fevers reported no nausea or vomiting is reported. Severity scale (0 -10): 6 Quality: aching Consistency: constant Associated Symptoms: weakness. denies: fever/chills, headaches - Related Data Previous Rx's Medication Instructions Recorded Last Taken Type Clindamycin [Clindamycin CAP] 300 mg PO QID #40 capsule 05/19/16 Unknown Rx Insulin NPH/Regular [NovoLIN 70/30] 18 units SUB-Q BID 30 Days 05/19/16 Unknown Rx Insulin Regular, Human [HumuLIN R] 5 units IV QAC 30 Days 05/19/16 Unknown Rx Neomy/Baci/Polymyx Oint [Triple 1 applic TP TID #1 tube 05/19/16 Unknown Rx Antibiotic] Sulfamethoxazole/Trimethoprim 2 each PO BID #28 tablet 05/27/16 Unknown Rx [Bactrim DS TAB] Allergies Allergy/AdvReac Type Severity Reaction Status Date / Time codeine Allergy Hives Verified 05/16/16 12:23 morphine Allergy Hives Verified 05/16/16 12:23 ondansetron HCl [From Zofran] Allergy Hives Verified 05/16/16 12:23 ED Review of Systems ROS: Stated complaint: WEAKNESS Other details as noted in HPI Comment: All other systems reviewed and negative Constitutional: weakness. denies: chills, fever Eyes: denies: eye pain, eye discharge, vision change ENT: denies: ear pain, throat pain Respiratory: denies: cough, shortness of breath, wheezing Cardiovascular: denies: chest pain, palpitations Endocrine: no symptoms reported Gastrointestinal: denies: abdominal pain, nausea, diarrhea Genitourinary: denies: urgency, dysuria Musculoskeletal: denies: back pain, joint swelling, arthralgia Skin: lesions (scalp wound). denies: rash Neurological: denies: headache, weakness, paresthesias Psychiatric: denies: anxiety, depression Hematological/Lymphatic: denies: easy bleeding, easy bruising ED Past Medical Hx - Past Medical History Previous Medical History?: Yes Hx Diabetes: Yes Additional medical history: staph infection - Surgical History Past Surgical History?: Yes Additional Surgical History: wound debridement (staph infection)--NECK AND BACK - Social History Smoking Status: Never Smoker Substance Use Type: None - Medications Home Medications: Home Medications Medication Instructions Recorded Confirmed Last Taken Type Clindamycin [Clindamycin CAP] 300 mg PO QID #40 capsule 05/19/16 Unknown Rx Insulin NPH/Regular [NovoLIN 70/30] 18 units SUB-Q BID 30 Days 05/19/16 Unknown Rx Insulin Regular, Human [HumuLIN R] 5 units IV QAC 30 Days 05/19/16 Unknown Rx Neomy/Baci/Polymyx Oint [Triple 1 applic TP TID #1 tube 05/19/16 Unknown Rx Antibiotic] Sulfamethoxazole/Trimethoprim 2 each PO BID #28 tablet 05/27/16 Unknown Rx [Bactrim DS TAB] ED Physical Exam - General Limitations: No Limitations General appearance: alert, in distress (appears fatigued) - Head Head exam: Present: other (parietal aspect with boggy area with active drainage. Some tunneling is noted heading posteriorly. There is surrounding erythema as well. Thick yellowish purulent material is noted. It is somewhat foul smelling.) - Eye Eye exam: Present: normal appearance - ENT ENT exam: Present: normal exam, normal orophraynx, mucous membranes moist - Neck Neck exam: Present: normal inspection, full ROM. Absent: meningismus, lymphadenopathy - Respiratory Respiratory exam: Present: normal lung sounds bilaterally. Absent: respiratory distress, wheezes, rales - Cardiovascular Cardiovascular Exam: Present: regular rate, normal rhythm. Absent: systolic murmur, diastolic murmur, rubs, gallop - GI/Abdominal GI/Abdominal exam: Present: soft, normal bowel sounds. Absent: tenderness, guarding - Rectal Rectal exam: Present: deferred - Extremities Exam Extremities exam: Present: normal inspection. Absent: tenderness, pedal edema, calf tenderness - Back Exam Back exam: Present: normal inspection - Neurological Exam Neurological exam: Present: alert, oriented X3 - Psychiatric Psychiatric exam: Present: normal affect, normal mood - Skin Skin exam: Present: warm, dry, intact, normal color. Absent: rash ED Course Vital Signs 05/27/16 05/27/16 05/27/16 00:45 00:50 00:53 Temperature 98.1 F Pulse Rate 99 H 98 H 98 H Respiratory 10 L 18 Rate Blood Pressure 97/63 97/63 Blood Pressure 97/63 [Left] O2 Sat by Pulse 99 100 Oximetry 05/27/16 05/27/16 00:57 00:59 Temperature 98.4 F Pulse Rate 97 H Respiratory 18 18 Rate Blood Pressure 97/63 Blood Pressure [Left] O2 Sat by Pulse 100 100 Oximetry - Reevaluation(s) Reevaluation #1: 05/27/16 04:55 Electrolytes are noted here. Patient does have a CO2 that is relatively low. His sugars are noted be elevated as well sodium corrects appropriately. Patient was given total of 2 L normal saline here with her. I did give insulin 2. Sugar was 290 prior to the second bolus of insulin. Patient subjectively feels much improved I feel he is in touch and off with his diabetes mellitus managed his medications at this point appropriately. He was given 1 g of Rocephin here for his soft tissue cellulitis/abscess in the top of his head. I& D was performed. I will have him start on oral antibiotics for this as well. Topical is definitely not adequate for this type of infection. Patient agrees to return if there is any acute worsening of his condition or if he is not able to manage his sugars appropriately. He is somewhat borderline tonight. I did involve him with the decision-making process. He states he does feel comfortable going home. He has been able to tolerate by mouth here. I feel it would continue to do this at home. 05/27/16 07:12 05/27/16 07:13 - I & D Head Type of Procedure: Simple Site: scalp Blade Size: blunt disection through escar with scissors I & D Procedure: sterile drapes applied, sterile dressing applied, gauze wick placed ED Medical Decision Making - Lab Data Result diagrams: 05/27/16 03:11 05/27/16 03:11 Critical care attestation.: If time is entered above; I have spent that time in minutes in the direct care of this critically ill patient, excluding procedure time. ED Disposition Clinical Impression: Hyperglycemia due to type 1 diabetes mellitus, Cellulitis and abscess of head Disposition: DISCHARGED TO HOME OR SELFCARE Is pt being admited?: No Does the pt Need Aspirin: No Condition: Stable Instructions: Abscess Incision and Drainage (ED) Additional Instructions: You will need to replace the packing material in your abscess in 2-3 days. Take the antibiotics as prescribed. Be very aggressive with your sugars in order to stay on top of them. Drink plenty of fluids. Return if worsening. Prescriptions: Sulfamethoxazole/Trimethoprim [Bactrim DS TAB] 2 each PO BID #28 tablet Referrals: PRIMARY CARE, [Primary Care Provider] - 3-5 Days Time of Disposition: 04:48
[2016-05-27] MEDS ORDERED: NACL 0.9% 1000 ML 1,000 ML IV ONE (02:56)
[2016-05-27] MEDS ORDERED: XYLOCAINE 1% 20 mL ONE (02:58)
[2016-05-27] MEDS ORDERED: ROCEPHIN/NS 1 GM/50 ML 1 GM/50 ML BAG IV ONE (02:58)
[2016-05-27 03:45] LABS: Basophils % (Auto) 0.5 % (0.0-1.8); Eosinophils % (Auto) 0.2 % (0.0-4.3); Hematocrit 35.4 % (35.5-45.6); Hemoglobin 11.7 gm/dl (11.8-15.2); Mean Corpuscular HGB Conc 33 % (32-34); Mean Corpuscular Volume 77 fl (84-94); Platelet Count 278 K/mm3 (140-440); Red Blood Count 4.62 M/mm3 (3.65-5.03); Red Cell Distribution Width 14.1 % (13.2-15.2); White Blood Count 10.4 K/mm3 (4.5-11.0)
[2016-05-27 03:48] LABS: Mean Corpuscular Hemoglobin 25 pg (28-32)
[2016-05-27 03:57] LABS: Albumin 3.2 g/dL (3.9-5); Albumin/Globulin Ratio 0.9 %; BUN/Creatinine Ratio 15.71; Bilirubin,Total 0.3 mg/dL (0.1-1.2); Calcium 8.4 mg/dL (8.4-10.2); Chloride 96.1 mmol/L (98-107); Potassium 4.1 mmol/L (3.6-5.0); Total Protein 6.6 g/dL (6.3-8.2)
== END 2016-05-27 05:40 | disposition home or self-care (01) ==
LOC: ED 00:40
DX: E10.65 Type 1 diabetes mellitus with hyperglycemia (principal); L03.811 Cellulitis of head [any part, except face]; L02.811 Cutaneous abscess of head [any part, except face]
CPT/HCPCS: 10060; 36415; 80053; 82962; 85025; 96365; 96372; 99284; J0696; J7030; J1815

== ENCOUNTER 2016-05-29 16:13 | Emergency (ER) | payer SELFPAY ==
[2016-05-29 16:51] VITALS: BP 121/87
== END 2016-05-29 21:39 | disposition left against medical advice (07) ==
LOC: ED 16:13
DX: Z48.02 Encounter for removal of sutures (principal); Z53.21 Procedure and treatment not carried out due to patient leaving prior to being seen by health care provider

== ENCOUNTER 2016-05-30 08:47 | Emergency (ER) | payer SELFPAY ==
[2016-05-30 08:55] VITALS: BP 106/72
--- NOTE | 2016-05-30 10:57 | Emergency Department Report ---
ED General Adult HPI - General Chief complaint: Laceration/Recheck/Suture Stated complaint: FOLLOW UP VISIT Time Seen by Provider: 05/30/16 10:20 Source: patient Mode of arrival: Ambulatory Limitations: No Limitations - History of Present Illness Initial comments: PT states he is here to have the packing removed from his scalp. PT states he had the packing placed Wed and he was started on Bactrim. PT states that 2 weeks ago, he was getting something from under a table and he scraped the top of his head. PT states he has an area that would not heal. PT states he has had staph before and he came to the ED on Wed when he first noticed s/s of staph - pain and swelling. PT states he can not look at the site but states that the pain decreased. PT also states the site only drained on the first day. pt states he checked his bg last night and it was 140. MD Complaint: packing removal -: Gradual Location: head Severity scale (0 -10): 0 Improves with: medication, other (decrease in pain sp I and D ) Associated Symptoms: denies: fever/chills, nausea/vomiting, weakness - Related Data Previous Rx's Medication Instructions Recorded Last Taken Type Insulin NPH/Regular [NovoLIN 70/30] 18 units SUB-Q BID 30 Days 05/19/16 Unknown Rx Insulin Regular, Human [HumuLIN R] 5 units IV QAC 30 Days 05/19/16 Unknown Rx Neomy/Baci/Polymyx Oint [Triple 1 applic TP TID #1 tube 05/19/16 Unknown Rx Antibiotic] Sulfamethoxazole/Trimethoprim 2 each PO BID #28 tablet 05/27/16 Unknown Rx [Bactrim DS TAB] Doxycycline [Vibramycin CAP] 100 mg PO Q12HR #20 capsule 05/30/16 Unknown Rx Allergies Allergy/AdvReac Type Severity Reaction Status Date / Time codeine Allergy Hives Verified 05/30/16 08:52 morphine Allergy Hives Verified 05/30/16 08:52 ondansetron HCl [From Zofran] Allergy Hives Verified 05/30/16 08:52 acetaminophen [From Lortab] AdvReac Headache Verified 05/30/16 08:52 hydrocodone bitartrate AdvReac Headache Verified 05/30/16 08:52 [From Lortab] ED Review of Systems ROS: Stated complaint: FOLLOW UP VISIT Other details as noted in HPI Comment: All other systems reviewed and negative Constitutional: denies: chills, fever Gastrointestinal: denies: abdominal pain, nausea, vomiting Musculoskeletal: denies: back pain Skin: other (I and D site ) Neurological: denies: headache ED Past Medical Hx - Past Medical History Hx Diabetes: Yes (IDDM) Additional medical history: staph infection - Surgical History Additional Surgical History: wound debridement (staph infection)--NECK AND BACK - Social History Smoking Status: Never Smoker Substance Use Type: None - Medications Home Medications: Home Medications Medication Instructions Recorded Confirmed Last Taken Type Insulin NPH/Regular [NovoLIN 70/30] 18 units SUB-Q BID 30 Days 05/19/16 Unknown Rx Insulin Regular, Human [HumuLIN R] 5 units IV QAC 30 Days 05/19/16 Unknown Rx Neomy/Baci/Polymyx Oint [Triple 1 applic TP TID #1 tube 05/19/16 Unknown Rx Antibiotic] Sulfamethoxazole/Trimethoprim 2 each PO BID #28 tablet 05/27/16 Unknown Rx [Bactrim DS TAB] Doxycycline [Vibramycin CAP] 100 mg PO Q12HR #20 capsule 05/30/16 Unknown Rx ED Physical Exam - General Limitations: No Limitations General appearance: alert, in no apparent distress - Head Head exam: Present: atraumatic, normocephalic, other (Pt's parietal scalp has erythema 7 cm x 5 cm. packing matted to hair. packing soaked with sterile NS and removed. copius amount of purulent drainage. from the 2 cm open area. drainage also noted posterior to I and D site. area of alopecia noted to scalp. ) - Eye Eye exam: Present: normal appearance. Absent: conjunctival injection - ENT ENT exam: Present: normal external ear exam - Expanded ENT Exam Expanded Mouth exam: Absent: drooling, trismus - Neck Neck exam: Present: normal inspection, full ROM. Absent: tenderness, meningismus - Respiratory Respiratory exam: Present: normal lung sounds bilaterally. Absent: respiratory distress - Cardiovascular Cardiovascular Exam: Present: tachycardia - GI/Abdominal GI/Abdominal exam: Present: soft. Absent: tenderness - Extremities Exam Extremities exam: Present: normal inspection, full ROM - Back Exam Back exam: Present: normal inspection, full ROM - Neurological Exam Neurological exam: Present: alert, oriented X3 - Psychiatric Psychiatric exam: Present: normal affect, normal mood - Skin Skin exam: Present: warm, dry, erythema ED Course Vital Signs 05/30/16 05/30/16 08:53 13:11 Temperature 97.5 F L Pulse Rate 110 H 100 H Respiratory 18 Rate Blood Pressure 106/72 O2 Sat by Pulse 100 99 Oximetry - Reevaluation(s) Reevaluation #1: 05/30/16 11:02 I and D site flushed with sterile NS. Covered with gauze. Reevaluation #2: 05/30/16 11:09 PT also seen by Dr De La Vega Reevaluation #3: 05/30/16 12:02 PT is awake alert and eating. PT aware of lab results. pt wanting to go home. PT aware he will need to follow up with wound care (printed contact information give to to) pt verbalizes understanding. PT reports not taking Clindamycin and pt also reports that he has multiple Bactrim pills left. I do not think pt is taking his Bactrim as prescribed. PT aware of the importance of strict antibiotic adherence. strict return precautions given. - Pulse Oximetry Interpretation Digit-Finger Initial Pulse Oximetry Readin Actions Taken: none ED Medical Decision Making - Lab Data Result diagrams: 05/30/16 11:00 05/30/16 11:00 potassium replaced while pt in ED. - Medical Decision Making Temp Pulse Resp BP Pulse Ox 97.5 F L 100 H 18 106/72 99 05/30/16 08:53 05/30/16 13:11 05/30/16 08:53 05/30/16 08:53 05/30/16 13:11 - Differential Diagnosis abscess, cellulitis Critical Care Time: No Critical care attestation.: If time is entered above; I have spent that time in minutes in the direct care of this critically ill patient, excluding procedure time. ED Disposition Clinical Impression: Hypokalemia, Wound check, abscess Disposition: DISCHARGED TO HOME OR SELFCARE Is pt being admited?: No Does the pt Need Aspirin: No Condition: Stable Instructions: Hypokalemia (ED), Abscess (ED) Additional Instructions: Please follow up with the [facility] for management of your scalp wound Avoid Sun exposure when on Doxy Prescriptions: Doxycycline [Vibramycin CAP] 100 mg PO Q12HR #20 capsule Referrals: PRIMARY CARE, [Primary Care Provider] - 3-5 Days Time of Disposition: 12:59
[2016-05-30 11:16] LABS: Basophils % (Auto) 0.7 % (0.0-1.8); Eosinophils % (Auto) 1.8 % (0.0-4.3); Hematocrit 30.8 % (35.5-45.6); Hemoglobin 10.4 gm/dl (11.8-15.2); Mean Corpuscular HGB Conc 34 % (32-34); Mean Corpuscular Volume 77 fl (84-94); Platelet Count 236 K/mm3 (140-440); Red Blood Count 4.01 M/mm3 (3.65-5.03); Red Cell Distribution Width 14.8 % (13.2-15.2); White Blood Count 6.7 K/mm3 (4.5-11.0)
[2016-05-30 11:24] LABS: Mean Corpuscular Hemoglobin 26 pg (28-32)
[2016-05-30 11:36] LABS: Blood Urea Nitrogen 16 mg/dL (9-20); Calcium 9.3 mg/dL (8.4-10.2); Carbon Dioxide 24 mmol/L (22-30); Chloride 99.6 mmol/L (98-107); Glucose 52 mg/dL (75-100); Potassium 3.3 mmol/L (3.6-5.0); Sodium 137 mmol/L (137-145)
[2016-05-30 11:41] LABS: Anion Gap 17 mmol/L
[2016-05-30] MEDS ORDERED: K-DUR PO ONE (11:47)
[2016-05-30] MEDS ORDERED: TRIPLE ANTIBIOTIC TP ONE (12:05)
== END 2016-05-30 13:18 | disposition home or self-care (01) ==
LOC: ED 08:47
DX: Z48.01 Encounter for change or removal of surgical wound dressing (principal); E87.6 Hypokalemia; E10.9 Type 1 diabetes mellitus without complications; Z88.5 Allergy status to narcotic agent; Z88.6 Allergy status to analgesic agent
CPT/HCPCS: 36415; 80048; 82140; 82962; 85025; 87076; 87116; 87186; 99283; A6250

== ENCOUNTER 2016-06-16 14:14 | Inpatient (IN) | payer SELFPAY ==
[2016-06-16] MEDS ORDERED: NACL 0.9% 1000 ML 1,000 ML IV ONE ×2 (15:17→20:18)
--- NOTE | 2016-06-16 15:28 | Emergency Department Report ---
Entered by YU CARO, acting as scribe for LENORA AGUIRRE NP. Chief Complaint: Weakness Stated Complaint: STAPH INFECTION Time Seen by Provider: 06/16/16 15:14 - HPI History of Present Illness: 30 y/o male presents c/o potential staff infection that started 3 weeks ago. He was treated at [facility] and given bactrim during that time. Pt notes subjective fever. Medication includes taking iron pills for his anemia. ill appearing pale no fever drainage from scalp- purlent tachy hypotn dm-bs < 200 hx anemia on fe here numerous times no neuro or focal deficits Ambulatory - ROS Review of Systems: as noted in HPI - Exam Vital Signs: Vital Signs 06/16/16 15:05 Temperature 97.6 F Pulse Rate 117 H Respiratory 20 Rate Blood Pressure 86/56 O2 Sat by Pulse 96 Oximetry Physical Exam: as noted in HPI MSE screening note: Focused history and physical exam performed. Due to findings the following was ordered: ED Disposition for MSE Condition: Stable This documentation as recorded by the scribe,YU CARO,accurately reflects the service I personally performed and the decisions made by ,LENORA AGUIRRE NP.
--- NOTE | 2016-06-16 16:13 | XRay Report ---
Chest 2 views. History: Fever and sepsis. Findings: The heart, lungs, and pulmonary vessels are normal. Impression: Normal chest.
[2016-06-16 16:29] LABS: Basophils % (Auto) 1.1 % (0.0-1.8); Eosinophils % (Auto) 0.9 % (0.0-4.3); Hematocrit 34.6 % (35.5-45.6); Hemoglobin 11.3 gm/dl (11.8-15.2); Mean Corpuscular HGB Conc 33 % (32-34); Mean Corpuscular Volume 79 fl (84-94); Platelet Count 256 K/mm3 (140-440); Red Blood Count 4.39 M/mm3 (3.65-5.03); Red Cell Distribution Width 15.8 % (13.2-15.2); White Blood Count 5.8 K/mm3 (4.5-11.0)
[2016-06-16 16:30] LABS: Mean Corpuscular Hemoglobin 26 pg (28-32)
[2016-06-16 16:54] LABS: Alanine Aminotransferase 7 units/L (7-56); Albumin 3.3 g/dL (3.9-5); Alkaline Phosphatase 186 units/L (35-129); Anion Gap 28 mmol/L; BUN/Creatinine Ratio 13.33; Bilirubin,Total 0.4 mg/dL (0.1-1.2); Blood Urea Nitrogen 16 mg/dL (9-20); Calcium 9.1 mg/dL (8.4-10.2); Carbon Dioxide 15 mmol/L (22-30); Chloride 93.1 mmol/L (98-107); Glucose 131 mg/dL (75-100); Potassium 3.2 mmol/L (3.6-5.0); Sodium 133 mmol/L (137-145); Total Protein 6.6 g/dL (6.3-8.2)
[2016-06-16 17:06] LABS: Cholesterol 186 mg/dL (50-199); HDL Cholesterol 98 mg/dL (40-59); LDL Cholesterol,Direct 58 mg/dL (50-130); Triglycerides 151 mg/dL (2-149)
[2016-06-16] MEDS ORDERED: NACL 0.9% 1000 ML 1,000 ML ONE (18:31)
[2016-06-16 19:57] LABS: Bilirubin,Urine NEG (Negative); Blood,Urine NEG (Negative); Ketones,Urine 80 mg/dL (Negative); Leukocyte Esterase,Urine NEG (Negative); Mucus,Urine FEW /HPF; Nitrite,Urine NEG (Negative); Urobilinogen,Urine < 2.0 mg/dL (<2.0); WBC,Urine < 1.0 /HPF (0.0-6.0)
[2016-06-16 19:59] LABS: RBC,Urine < 1.0 /HPF (0.0-6.0)
--- NOTE | 2016-06-16 20:06 | Emergency Department Report ---
- General Chief complaint: Weakness Stated complaint: STAPH INFECTION Time Seen by Provider: 06/16/16 19:40 Source: patient, old records reviewed Mode of arrival: Ambulatory Limitations: No Limitations - History of Present Illness Initial comments: 30-year-old male with a past medical history of insulin-dependent diabetes presents to the hospital complaining of continued scalp infection for the last 3 weeks. Initial injury occurred about 3 weeks ago when patient scraped the top of his head underneath a table while reaching under to pick something up. Patient has had multiple ER visits including admission since. Patient is was initially admitted May 16 until May 19 for the same and had an I&D of the wound. Was discharged on clindamycin 10 days. Patient continued to have symptoms despite taking the antibiotics and repeat presented to the Hospital ER on May 27. Patient was prescribed Bactrim for 14 days. Patient re-presented on May 30 and was started on Doxy for 10 days as well. Patient is currently on Bactrim and Doxy has completed his clindamycin course. He continues to have subjective fever, uncontrolled glucose range in the 500 at times, and drainage from his scalp. Patient does not have a primary care doctor has not had any outpatient evaluation and instead presents to the ER repeatedly. Nausea and decreased appetite reported. Scalp pain rated 4/10 in intensity and worse with palpation. Wound culture from May 30 shows MRSA sensitive to clindamycin, vancomycin, Cipro, and Bactrim - Related Data Previous Rx's Medication Instructions Recorded Last Taken Type Insulin NPH/Regular [NovoLIN 70/30] 18 units SUB-Q BID 30 Days 05/19/16 Unknown Rx Insulin Regular, Human [HumuLIN R] 5 units IV QAC 30 Days 05/19/16 Unknown Rx Neomy/Baci/Polymyx Oint [Triple 1 applic TP TID #1 tube 05/19/16 Unknown Rx Antibiotic] Sulfamethoxazole/Trimethoprim 2 each PO BID #28 tablet 05/27/16 Unknown Rx [Bactrim DS TAB] Doxycycline [Vibramycin CAP] 100 mg PO Q12HR #20 capsule 05/30/16 Unknown Rx Allergies Allergy/AdvReac Type Severity Reaction Status Date / Time codeine Allergy Hives Verified 05/30/16 08:52 morphine Allergy Hives Verified 05/30/16 08:52 ondansetron HCl [From Zofran] Allergy Hives Verified 05/30/16 08:52 acetaminophen [From Lortab] AdvReac Headache Verified 05/30/16 08:52 hydrocodone bitartrate AdvReac Headache Verified 05/30/16 08:52 [From Lortab] Abscess Boil HPI - HPI Chief Complaint: Weakness Stated Complaint: STAPH INFECTION Time Seen by Provider: 06/16/16 19:40 Home Medications: Previous Rx's Medication Instructions Recorded Last Taken Type Insulin NPH/Regular [NovoLIN 70/30] 18 units SUB-Q BID 30 Days 05/19/16 Unknown Rx Insulin Regular, Human [HumuLIN R] 5 units IV QAC 30 Days 05/19/16 Unknown Rx Neomy/Baci/Polymyx Oint [Triple 1 applic TP TID #1 tube 05/19/16 Unknown Rx Antibiotic] Sulfamethoxazole/Trimethoprim 2 each PO BID #28 tablet 05/27/16 Unknown Rx [Bactrim DS TAB] Doxycycline [Vibramycin CAP] 100 mg PO Q12HR #20 capsule 05/30/16 Unknown Rx Allergies/Adverse Reactions: Allergies Allergy/AdvReac Type Severity Reaction Status Date / Time codeine Allergy Hives Verified 05/30/16 08:52 morphine Allergy Hives Verified 05/30/16 08:52 ondansetron HCl [From Zofran] Allergy Hives Verified 05/30/16 08:52 acetaminophen [From Lortab] AdvReac Headache Verified 05/30/16 08:52 hydrocodone bitartrate AdvReac Headache Verified 05/30/16 08:52 [From Lortab] ED Review of Systems ROS: Stated complaint: STAPH INFECTION Other details as noted in HPI Comment: All other systems reviewed and negative Other: Constitutional: Subjective fever Eyes: No eye pain visual changes or discharge ENT: No ear pain or throat pain Neck: Denies pain Respiratory: Denies cough wheezing shortness of breath Cardiovascular: Denies chest pain, palpitations, syncope Endocrine: Per HPI GI: Denies abdominal pain, vomiting, diarrhea, constipation : Denies dysuria Musculoskeletal: Denies back pain Skin: As per HPI Neurologic: Denies headache, numbness, weakness Psychiatric: Denies suicidal ideation, hallucinations ED Past Medical Hx - Past Medical History Hx Diabetes: Yes (IDDM) Additional medical history: staph infection - Surgical History Additional Surgical History: wound debridement (staph infection)--NECK AND BACK - Social History Smoking Status: Never Smoker Substance Use Type: None - Medications Home Medications: Home Medications Medication Instructions Recorded Confirmed Last Taken Type Insulin NPH/Regular [NovoLIN 70/30] 18 units SUB-Q BID 30 Days 05/19/16 Unknown Rx Insulin Regular, Human [HumuLIN R] 5 units IV QAC 30 Days 05/19/16 Unknown Rx Neomy/Baci/Polymyx Oint [Triple 1 applic TP TID #1 tube 05/19/16 Unknown Rx Antibiotic] Sulfamethoxazole/Trimethoprim 2 each PO BID #28 tablet 05/27/16 Unknown Rx [Bactrim DS TAB] Doxycycline [Vibramycin CAP] 100 mg PO Q12HR #20 capsule 05/30/16 Unknown Rx ED Physical Exam - General Limitations: No Limitations - Other Other exam information: General: No limitations, patient is alert in no acute distress Head exam: Atraumatic, normocephalic Eyes exam: Normal appearance ENT: Moist mucous membrane, normal oropharynx Neck exam: Normal inspection, full range of motion, no meningismus nontender Respiratory exam: Clear to auscultation bilateral, no wheezes, rales, crackles Cardiovascular: Tachycardic regular rhythm Abdomen: Soft, nondistended, and nontender, with normal bowel sounds, no rebound, or guarding Extremity: Full range of motion normal inspection no deformity Back: Normal Inspection, full range of motion, no tenderness Neurologic: Alert, oriented x3, cranial nerves intact, no motor or sensory deficit Psychiatric: normal affect, normal mood Skin: Swelling to the top of the right scalp with active purulent drainage and mild tenderness to palpation ED Course Vital Signs 06/16/16 06/16/16 15:05 17:53 Temperature 97.6 F 97.4 F L Pulse Rate 117 H 95 H Respiratory 20 22 Rate Blood Pressure 86/56 Blood Pressure 97/67 [Right] O2 Sat by Pulse 96 98 Oximetry - Reevaluation(s) Reevaluation #1: 06/16/16 20:09 Patient hypotensive upon arrival. Patient received 1 L of normal saline prior to my evaluation with improvement in blood pressure. ED Medical Decision Making - Lab Data Result diagrams: 06/16/16 16:07 06/16/16 16:07 Lab Results 06/16/16 06/16/16 06/16/16 Range/Units 15:15 16:07 16:07 WBC 5.8 (4.5-11.0) K/mm3 RBC 4.39 (3.65-5.03) M/mm3 Hgb 11.3 L (11.8-15.2) gm/dl Hct 34.6 L (35.5-45.6) % MCV 79 L (84-94) fl MCH 26 L (28-32) pg MCHC 33 (32-34) % RDW 15.8 H (13.2-15.2) % Plt Count 256 (140-440) K/mm3 Lymph % (Auto) 20.7 (13.4-35.0) % [place] % (Auto) 11.1 H (0.0-7.3) % Eos % (Auto) 0.9 (0.0-4.3) % Baso % (Auto) 1.1 (0.0-1.8) % Lymph # 1.2 (1.2-5.4) K/mm3 [place] # 0.6 (0.0-0.8) K/mm3 Eos # 0.1 (0.0-0.4) K/mm3 Baso # 0.1 (0.0-0.1) K/mm3 Seg Neutrophils % 66.2 (40.0-70.0) % Seg Neutrophils # 3.8 (1.8-7.7) K/mm3 Sodium 133 L (137-145) mmol/L Potassium 3.2 L (3.6-5.0) mmol/L Chloride 93.1 L (98-107) mmol/L Carbon Dioxide 15 L (22-30) mmol/L Anion Gap 28 mmol/L BUN 16 (9-20) mg/dL Creatinine 1.2 (0.8-1.5) mg/dL Estimated GFR > 60 ml/min BUN/Creatinine Ratio 13.33 % Glucose 131 H (75-100) mg/dL POC Glucose 172 H (70-105) Lactic Acid (0.7-2.0) mmol/L Calcium 9.1 (8.4-10.2) mg/dL Total Bilirubin 0.4 (0.1-1.2) mg/dL AST 9 (5-40) units/L ALT 7 (7-56) units/L Alkaline Phosphatase 186 H (35-129) units/L Troponin T 0.038 H (0.00-0.029) ng/mL Total Protein 6.6 (6.3-8.2) g/dL Albumin 3.3 L (3.9-5) g/dL Albumin/Globulin Ratio 1.0 % Triglycerides 151 H (2-149) mg/dL Cholesterol 186 (50-199) mg/dL LDL Cholesterol Direct 58 (50-130) mg/dL HDL Cholesterol 98 H (40-59) mg/dL Cholesterol/HDL Ratio 1.89 % Urine Color (Yellow) Urine Turbidity (Clear) Urine pH (5.0-7.0) Ur Specific [place] (1.003-1.030) Urine Protein (Negative) mg/dL Urine Glucose (UA) (Negative) mg/dL Urine Ketones (Negative) mg/dL Urine Blood (Negative) Urine Nitrite (Negative) Urine Bilirubin (Negative) Urine Urobilinogen (<2.0) mg/dL Ur Leukocyte Esterase (Negative) Urine WBC (Auto) (0.0-6.0) /HPF Urine RBC (Auto) (0.0-6.0) /HPF Urine Mucus /HPF 06/16/16 06/16/16 Range/Units 16:07 19:33 WBC (4.5-11.0) K/mm3 RBC (3.65-5.03) M/mm3 Hgb (11.8-15.2) gm/dl Hct (35.5-45.6) % MCV (84-94) fl MCH (28-32) pg MCHC (32-34) % RDW (13.2-15.2) % Plt Count (140-440) K/mm3 Lymph % (Auto) (13.4-35.0) % [place] % (Auto) (0.0-7.3) % Eos % (Auto) (0.0-4.3) % Baso % (Auto) (0.0-1.8) % Lymph # (1.2-5.4) K/mm3 [place] # (0.0-0.8) K/mm3 Eos # (0.0-0.4) K/mm3 Baso # (0.0-0.1) K/mm3 Seg Neutrophils % (40.0-70.0) % Seg Neutrophils # (1.8-7.7) K/mm3 Sodium (137-145) mmol/L Potassium (3.6-5.0) mmol/L Chloride (98-107) mmol/L Carbon Dioxide (22-30) mmol/L Anion Gap mmol/L BUN (9-20) mg/dL Creatinine (0.8-1.5) mg/dL Estimated GFR ml/min BUN/Creatinine Ratio % Glucose (75-100) mg/dL POC Glucose (70-105) Lactic Acid 4.3 H* (0.7-2.0) mmol/L Calcium (8.4-10.2) mg/dL Total Bilirubin (0.1-1.2) mg/dL AST (5-40) units/L ALT (7-56) units/L Alkaline Phosphatase (35-129) units/L Troponin T (0.00-0.029) ng/mL Total Protein (6.3-8.2) g/dL Albumin (3.9-5) g/dL Albumin/Globulin Ratio % Triglycerides (2-149) mg/dL Cholesterol (50-199) mg/dL LDL Cholesterol Direct (50-130) mg/dL HDL Cholesterol (40-59) mg/dL Cholesterol/HDL Ratio % Urine Color Straw (Yellow) Urine Turbidity Clear (Clear) Urine pH 6.0 (5.0-7.0) Ur Specific [place] 1.015 (1.003-1.030) Urine Protein 30 mg/dl (Negative) mg/dL Urine Glucose (UA) >=500 (Negative) mg/dL Urine Ketones 80 (Negative) mg/dL Urine Blood Neg (Negative) Urine Nitrite Neg (Negative) Urine Bilirubin Neg (Negative) Urine Urobilinogen < 2.0 (<2.0) mg/dL Ur Leukocyte Esterase Neg (Negative) Urine WBC (Auto) < 1.0 (0.0-6.0) /HPF Urine RBC (Auto) < 1.0 (0.0-6.0) /HPF Urine Mucus Few /HPF - EKG Data -: EKG Interpreted by Me (sinus tach [address] elevation AK or T inversion) - EKG Data When compared to previous EKG there are: no significant change (compared to ) - Medical Decision Making Patient is exhibiting signs of sepsis giving active abscess infection, tachycardia, and low blood pressure, anion gap acidosis, and elevated lactic acid. Serum ketones is a send out and not currently arrival. UA and culture are pending. Clindamycin IV and Bactrim by mouth ordered. Additional liter of normal saline ordered. Patient will be admitted to the hospital for further treatment and evaluation and may benefit from possible surgical and ID evaluation. Patient may also benefit from outpatient wound care management on discharge. UA shows + ketones so DKA also in differential Urine culure, blood culture, Sharad PH, repeat trop, and repeat Lactic acid ordered and pending at dispo - Differential Diagnosis sepsis, abscess, cellulitis, UTI, dka Critical Care Time: No Critical care attestation.: If time is entered above; I have spent that time in minutes in the direct care of this critically ill patient, excluding procedure time. ED Disposition Clinical Impression: Scalp abscess, Diabetes mellitus type I, Sepsis, Lactic acid increased, Hyponatremia, Ketosis, Elevated troponin Disposition: OP ADMITTED IP TO THIS HOSP Is pt being admited?: Yes Condition: Stable Time of Disposition: 20:14 (Hospitalist)
[2016-06-16] MEDS ORDERED: CLEOCIN 600 MG/50 mL 600 MG/50 ML BAG IV ONE (20:17)
[2016-06-16] MEDS ORDERED: BACTRIM DS PO ONE (20:17)
[2016-06-16] MEDS ORDERED: DULCOLAX PR PRN (22:28)
[2016-06-16] MEDS ORDERED: MILK OF MAGNESIA PO PRN (22:28)
[2016-06-16] MEDS ORDERED: REGLAN IV PRN (22:28)
[2016-06-16] MEDS ORDERED: D50W (25GM) IV PRN (22:28)
--- NOTE | 2016-06-16 22:32 | History and Physical Report ---
History of Present Illness Date of examination: 06/16/16 History of present illness: 30 -year-old man with a history of diabetes, multiple staph infection in the past comes emergency room with complaints of yellow drainage from the wound on his head. Stated he is being on Bactrim and clindamycin for 3-1/2 weeks without any improvement. Complaining of generalized weakness, nausea, decreased appetite Patient denies chest pain, palpitation, shortness of breath, cough, abdominal pain, hematochezia, dysuria, frequency, focal weakness, dysarthria, fever chills , polydipsia polyuria, hot or cold intolerance, easy bruisability, or rash or bleeding from mucosal membrane, rhinorrhea, epistaxis, earache, tinnitus, blurry vision, eye discharge, anxiety, depression. Other review of systems negative PAST SURGICAL HISTORY: None SOCIAL HISTORY: Denies alcohol, tobacco, drugs FAMILY HISTORY: Diabetes Medications and Allergies Allergies Allergy/AdvReac Type Severity Reaction Status Date / Time codeine Allergy Hives Verified 05/30/16 08:52 morphine Allergy Hives Verified 05/30/16 08:52 ondansetron HCl [From Zofran] Allergy Hives Verified 05/30/16 08:52 acetaminophen [From Lortab] AdvReac Headache Verified 05/30/16 08:52 hydrocodone bitartrate AdvReac Headache Verified 05/30/16 08:52 [From Lortab] Home Medications Medication Instructions Recorded Confirmed Last Taken Type Unobtainable 06/16/16 06/16/16 Unknown History Exam - Physical Exam Narrative exam: Gen. appearance: Patient lying in bed, no apparent distress HEENT: Normocephalic, means in the middle of head, mild erythema, tender to touch, pupils equally round and reactive to light, extraocular movement intact, and no sclericterus,. No JVD or thyromegaly or nodule,neck supple, no carotid bruit ,mucous membranes moist, no exudate or erythema Heart: S1, S2, regular rate and rhythm Lungs: Clear to auscultation bilaterally, breathing comfortable Abdomen: Positive bowel sounds, nontender, nondistended, no organomegaly Extremity: No edema, cyanosis, clubbing Skin: No rash, nodules, warm, dry Neuro: Oriented 3, cranial nerves II-12 intact, speech is fluent, motor and sensory intact - Constitutional Vitals: Temp Pulse Resp BP Pulse Ox 97.4 F L 111 H 14 87/56 99 06/16/16 17:53 06/16/16 21:41 06/16/16 21:41 06/16/16 21:41 06/16/16 21:41 Results - Labs CBC & Chem 7: 06/16/16 16:07 06/16/16 16:07 Labs: Abnormal lab results 06/16/16 06/16/16 06/16/16 Range/Units 15:15 16:07 16:07 Hgb 11.3 L (11.8-15.2) gm/dl Hct 34.6 L (35.5-45.6) % MCV 79 L (84-94) fl MCH 26 L (28-32) pg RDW 15.8 H (13.2-15.2) % [place] % (Auto) 11.1 H (0.0-7.3) % VBG pH (7.320-7.420) Sodium 133 L (137-145) mmol/L Potassium 3.2 L (3.6-5.0) mmol/L Chloride 93.1 L (98-107) mmol/L Carbon Dioxide 15 L (22-30) mmol/L Glucose 131 H (75-100) mg/dL POC Glucose 172 H (70-105) Lactic Acid (0.7-2.0) mmol/L Alkaline Phosphatase 186 H (35-129) units/L Troponin T 0.038 H (0.00-0.029) ng/mL Albumin 3.3 L (3.9-5) g/dL Triglycerides 151 H (2-149) mg/dL HDL Cholesterol 98 H (40-59) mg/dL 06/16/16 06/16/16 Range/Units 16:07 20:21 Hgb (11.8-15.2) gm/dl Hct (35.5-45.6) % MCV (84-94) fl MCH (28-32) pg RDW (13.2-15.2) % [place] % (Auto) (0.0-7.3) % VBG pH 7.281 L (7.320-7.420) Sodium (137-145) mmol/L Potassium (3.6-5.0) mmol/L Chloride (98-107) mmol/L Carbon Dioxide (22-30) mmol/L Glucose (75-100) mg/dL POC Glucose (70-105) Lactic Acid 4.3 H* (0.7-2.0) mmol/L Alkaline Phosphatase (35-129) units/L Troponin T (0.00-0.029) ng/mL Albumin (3.9-5) g/dL Triglycerides (2-149) mg/dL HDL Cholesterol (40-59) mg/dL Assessment and Plan Scalp abscess Elevated troponin, patient asymptomatic Diabetes type 2 Hypokalemia Admits medicine Start IV vancomycin, IV fluids Check cardiac enzymes Start Lantus, insulin sliding scale, replete potassium Start DVT prophylaxis
[2016-06-16] MEDS ORDERED: LEVEMIR SUB-Q ONE (22:38)
[2016-06-16 23:40] LABS: Creatine Kinase MB 9.1 ng/mL (0.0-4.0)
[2016-06-17] MEDS: VANCOMYCIN/NS 1 GM/250 ML 1 GM/250 ML BAG IV SCH ×3 (01:00→18:34)
[2016-06-17] MEDS: NACL 0.9% 1000 ML 1,000 ML IV SCH ×2 (01:49→14:16)
[2016-06-17 05:21] LABS: Basophils % (Auto) 0.9 % (0.0-1.8); Eosinophils % (Auto) 2.1 % (0.0-4.3); Hematocrit 28.8 % (35.5-45.6); Hemoglobin 9.4 gm/dl (11.8-15.2); Mean Corpuscular HGB Conc 33 % (32-34); Mean Corpuscular Volume 79 fl (84-94); Platelet Count 201 K/mm3 (140-440); Red Blood Count 3.62 M/mm3 (3.65-5.03); Red Cell Distribution Width 16.1 % (13.2-15.2); White Blood Count 3.9 K/mm3 (4.5-11.0)
[2016-06-17 05:27] LABS: Mean Corpuscular Hemoglobin 26 pg (28-32)
[2016-06-17 05:30] LABS: Anion Gap 27 mmol/L; BUN/Creatinine Ratio 12.72; Blood Urea Nitrogen 14 mg/dL (9-20); Calcium 7.6 mg/dL (8.4-10.2); Carbon Dioxide 11 mmol/L (22-30); Chloride 95.3 mmol/L (98-107); Glucose 384 mg/dL (75-100); Potassium 3.8 mmol/L (3.6-5.0); Sodium 129 mmol/L (137-145)
[2016-06-17] MEDS: NOVOLOG SUB-Q SCH ×4 (08:35→22:59)
--- NOTE | 2016-06-17 10:22 | Progress Note ---
Assessment and Plan Assessment and plan: Scalp wound infection with abscess. Wound cultures MRSA. He has been on Antibiotics for 1 month-Clindamycin and Bactrim, with no improvement. Wound care Nurse to see. Vancomycin iv. Contact isolation Diabetes mellitus type 1. Obtain his home med list.Fingerstick glucose qac and hs Full code status. History Interval history: scalp wound infection not healing after 1 nmonth of clindamycin and Bactrim Hospitalist Physical - Physical exam Narrative exam: Gen: Not in acute distress, HEENT: Scalp wound with drainage, covered with dressing Neck: supple, no JVD Lungs:Lungs clear to auscultation, bilaterally, no crackles or wheeze Heart S1-S2 regular, no murmurs rubs or gallop, Abdomen: soft, non tender, non distended, normal bowel sounds , Ext: No edema, clubbing or cyanosis. Neuro: Awake,alert, oriented x 3, no focal neurological sign, - Constitutional Vitals: Temp Pulse Resp BP Pulse Ox 97.9 F 88 18 96/67 98 06/17/16 07:30 06/17/16 07:30 06/17/16 07:30 06/17/16 07:30 06/17/16 07:30 Results - Labs CBC & Chem 7: 06/17/16 04:42 06/17/16 04:42 Labs: Laboratory Last Values WBC 3.9 K/mm3 (4.5-11.0) L 06/17/16 04:42 RBC 3.62 M/mm3 (3.65-5.03) L 06/17/16 04:42 Hgb 9.4 gm/dl (11.8-15.2) L 06/17/16 04:42 Hct 28.8 % (35.5-45.6) L 06/17/16 04:42 MCV 79 fl (84-94) L 06/17/16 04:42 MCH 26 pg (28-32) L 06/17/16 04:42 MCHC 33 % (32-34) 06/17/16 04:42 RDW 16.1 % (13.2-15.2) H 06/17/16 04:42 Plt Count 201 K/mm3 (140-440) 06/17/16 04:42 Lymph % (Auto) 26.3 % (13.4-35.0) 06/17/16 04:42 [place] % (Auto) 10.8 % (0.0-7.3) H 06/17/16 04:42 Eos % (Auto) 2.1 % (0.0-4.3) 06/17/16 04:42 Baso % (Auto) 0.9 % (0.0-1.8) 06/17/16 04:42 Lymph # 1.0 K/mm3 (1.2-5.4) L 06/17/16 04:42 [place] # 0.4 K/mm3 (0.0-0.8) 06/17/16 04:42 Eos # 0.1 K/mm3 (0.0-0.4) 06/17/16 04:42 Baso # 0.0 K/mm3 (0.0-0.1) 06/17/16 04:42 Seg Neutrophils % 59.9 % (40.0-70.0) 06/17/16 04:42 Seg Neutrophils # 2.3 K/mm3 (1.8-7.7) 06/17/16 04:42 VBG pH 7.281 (7.320-7.420) L 06/16/16 20:21 Sodium 129 mmol/L (137-145) L 06/17/16 04:42 Potassium 3.8 mmol/L (3.6-5.0) 06/17/16 04:42 Chloride 95.3 mmol/L (98-107) L 06/17/16 04:42 Carbon Dioxide 11 mmol/L (22-30) L 06/17/16 04:42 Anion Gap 27 mmol/L 06/17/16 04:42 BUN 14 mg/dL (9-20) 06/17/16 04:42 Creatinine 1.1 mg/dL (0.8-1.5) 06/17/16 04:42 Estimated GFR > 60 ml/min 06/17/16 04:42 BUN/Creatinine Ratio 12.72 % 06/17/16 04:42 Glucose 384 mg/dL (75-100) H 06/17/16 04:42 POC Glucose 270 (70-105) H 06/17/16 06:19 Lactic Acid 4.3 mmol/L (0.7-2.0) H* 06/16/16 16:07 Calcium 7.6 mg/dL (8.4-10.2) L D 06/17/16 04:42 Magnesium 1.8 mg/dL (1.7-2.3) 06/16/16 16:07 Total Bilirubin 0.4 mg/dL (0.1-1.2) 06/16/16 16:07 AST 9 units/L (5-40) 06/16/16 16:07 ALT 7 units/L (7-56) 06/16/16 16:07 Alkaline Phosphatase 186 units/L (35-129) H 06/16/16 16:07 Total Creatine Kinase 20 units/L (55-170) L 06/16/16 23:11 CK-MB (CK-2) 9.1 ng/mL (0.0-4.0) H 06/16/16 23:11 CK-MB (CK-2) Rel Index 45.5 (0-4) H 06/16/16 23:11 Troponin T 0.019 ng/mL (0.00-0.029) 06/16/16 23:11 Total Protein 6.6 g/dL (6.3-8.2) 06/16/16 16:07 Albumin 3.3 g/dL (3.9-5) L 06/16/16 16:07 Albumin/Globulin Ratio 1.0 % 06/16/16 16:07 Triglycerides 151 mg/dL (2-149) H 06/16/16 16:07 Cholesterol 186 mg/dL (50-199) 06/16/16 16:07 LDL Cholesterol Direct 58 mg/dL (50-130) 06/16/16 16:07 HDL Cholesterol 98 mg/dL (40-59) H 06/16/16 16:07 Cholesterol/HDL Ratio 1.89 % 06/16/16 16:07 Urine Color Straw (Yellow) 06/16/16 19:33 Urine Turbidity Clear (Clear) 06/16/16 19:33 Urine pH 6.0 (5.0-7.0) 06/16/16 19:33 Ur Specific [place] 1.015 (1.003-1.030) 06/16/16 19:33 Urine Protein 30 mg/dl mg/dL (Negative) 06/16/16 19:33 Urine Glucose (UA) >=500 mg/dL (Negative) 06/16/16 19:33 Urine Ketones 80 mg/dL (Negative) 06/16/16 19:33 Urine Blood Neg (Negative) 06/16/16 19:33 Urine Nitrite Neg (Negative) 06/16/16 19:33 Urine Bilirubin Neg (Negative) 06/16/16 19:33 Urine Urobilinogen < 2.0 mg/dL (<2.0) 06/16/16 19:33 Ur Leukocyte Esterase Neg (Negative) 06/16/16 19:33 Urine WBC (Auto) < 1.0 /HPF (0.0-6.0) 06/16/16 19:33 Urine RBC (Auto) < 1.0 /HPF (0.0-6.0) 06/16/16 19:33 Urine Mucus Few /HPF 06/16/16 19:33
[2016-06-17] MEDS: LOVENOX SUB-Q SCH (10:27)
[2016-06-17 12:29] LABS: Creatine Kinase MB 7.4 ng/mL (0.0-4.0)
--- NOTE | 2016-06-17 12:49 | Admit Criteria Form ---
Admission Criteria Documentation: SEVERE SEPSIS Clinical Indications for Admission to Inpatient Care (Place 'X' for any and all applicable criteria): Hospital admission is needed for appropriate care of the patient because of ANY ONE of the following: [XI. Hemodynamic instability indicated by ANY ONE of the following(1)(2)(3)(4 )(5): []a. Vital sign abnormality not readily corrected by appropriate treatment within 12 to 24 hours indicated by ANY ONE of the following: []i) Tachycardia that persists despite appropriate treatment [Xii) Hypotension that persists despite appropriate treatment []iii) Orthostatic vital sign changes that persist despite appropriate treatment [Xb. Vital sign abnormality that is severe indicated by ANY ONE of the following: [X]i.Inadequate perfusion indicated by ANY ONE of the following : [X]1) Lactic acidosis (greater than 2 mmol/L) []2) New abnormal capillary refill (greater than 3 seconds) []3) Reduced urine output []4) New altered mental status []5) Myocardial Ischemia []ii. Mean arterial pressure [A] less than 60 mm Hg []iii. Mean arterial pressure[A] less than 70 mm Hg after 30 minutes of appropriate treatment (eg, fluid resuscitation) []iv. Sustained heart rate greater than 120 beats per minute in adult []v. IV inotropic or vasopressor medication required to maintain adequate blood pressure or perfusion [X]II. Systemic or infectious condition causing severe symptoms or findings not responsive to emergency or observation care treatment (as appropriate) indicated by ANY ONE of the following: []a. Cardiac arrhythmias of immediate concern(1)(2)(3) []b. Severe endocrine disorder (eg, thyrotoxicosis, adrenal insufficiency)(4)(5) []c. Seizures (eg, new or recurrent)(6) []d. New-onset end organ failure or dysfunction as indicated by ANY ONE of the following: []i. Acute unexplained hypoxemia (eg, not from lung infection or chronic disease)(7)(8)(9) []ii. Acute renal failure as indicated by new onset of ANY ONE of the following(10)(11)(12)(13)(14): []1) 3-fold rise in serum creatinine from baseline []2) Serum creatinine greater than 4 mg/dL (354 micromoles/L) with acute rise greater than 0.5 mg/dL (44.2 micromoles/L) []3) Reduction of more than 75% in estimated glomerular filtration rate from baseline. []4) Estimated glomerular filtration rate less than 35 mL/min/1.73m2 ( 0.59 mL/sec/1.73m2) in child younger than 18 years. []5) Cessation of urine output indicated by ALL of the following: []A. Adequate volume status []B. Inadequate urine output as indicated by ANY ONE of the following: []a. Urine output less than 0.3 mL/kg/hr for 24 hours []b. Anuria (urine output less than 0.1 mL/kg/hr) for 12 hours []iii. Acute mental status changes(15) []iv. Acute hepatic failure (eg, plasma bilirubin greater than 4 mg/ dL (68 micromoles/L), new INR greater than 2.0)(16)(17) []e. Unmanageable nausea and vomiting(18) []f. New-onset or uncontrolled central diabetes insipidus(19)(20) []g. Clinically significant dehydration(18)(21) []h. Hypoglycemia(22) [X]i. Acidosis (pH less than 7.35) or alkalosis (pH greater than 7.45)( 22)(23) []j. Toxic drug level that indicates need for specific monitoring or treatment(24)(25) []k. Severe electrolyte abnormalities indicated by ALL of the following( 1)(2)(3): []i. Electrolytes and associated findings are not as expected for patient baseline or acceptable treatment effects. []ii. Severe abnormalities indicated by ANY ONE of the following: []1) Sodium less than 130 mEq/L (mmol/L) (new) []2) Sodium less than 135 mEq/L (mmol/L) with ANY ONE of the following: []A. Uncorrectable (to near normal or chronic baseline) after trial of outpatient and emergency treatment []B. Altered mental status []C. Seizures []D. Severe medical etiology requiring inpatient management (eg , heart failure, hypovolemia) []3) Sodium greater than 155 mEq/L (mmol/L) []4) Sodium greater than 150 mEq/L (mmol/L) with ANY ONE of the following: []A. Uncorrectable (to near normal or chronic baseline) with outpatient and emergency treatment []B. Altered mental status []C. Seizures []D. Severe medical etiology (eg, hypovolemia, diabetes insipidus) []5) Potassium less than 2.5 mEq/L (mmol/L) despite outpatient and emergency treatment []6) Potassium less than 3 mEq/L (mmol/L) with ANY ONE of the following : []A. Weakness []B. Cardiac abnormality (eg, arrhythmia, conduction disturbance ) []C. Cardiac ischemia []D. Ileus []E. Ongoing medical cause requiring inpatient management (eg, acute renal wasting or SIADH) []F. Other severe symptoms []7) Potassium greater than 6.5 mEq/L (mmol/L) []8) Potassium greater than 5 mEq/L (mmol/L) with ANY ONE of the following: []A. Uncorrectable (to near normal or chronic baseline) with outpatient and emergency treatment []B. Severe ECG findings[A] []C. Acute worsening of renal failure (creatinine greater than 2.5 mg/dL (221 micromoles/L) or significant elevation for age and size) []D. Severe weakness []E. Severe medical etiology (eg, hemolysis, infection, drug overdose) []9) Calcium less than 7 mg/dL (1.75 mmol/L) despite outpatient and emergency treatment(5) []10) Calcium less than 8 mg/dL (2 mmol/L) with significant symptoms or findings (eg, altered mental status, muscle spasms, seizures, breathing difficulty, cardiac abnormality (eg, arrhythmia or conduction disturbance))(5) []11) Calcium greater than 14 mg/dL (3.5 mmol/L)(5) []12) Calcium greater than 12 mg/dL (3 mmol/L) with ANY ONE of the following(5): []A. Uncorrectable (to near normal or chronic baseline) with outpatient and emergency treatment []B. Significant dehydration or hypovolemia as indicated by ALL of the following(3)(6)(7): []a. Not resolved with initial treatments []b. Clinically significant dehydration as indicated by ANY ONE of the following: [](1) Vomiting refractory to outpatient treatment (ie, precluding oral rehydration) [](2) Inability to drink [](3) Hypernatremia or other electrolyte abnormality unable to be corrected with outpatient and emergency treatment [](4) Failure to remain hydrated with outpatient therapy [](5) Reduced urine output [](6) Hypotension [](7) Serious cause for dehydration requiring acute hospitalization ( eg, bowel obstruction, increased intracranial pressure, infectious cause) [](8) Child with ANY ONE of the following(8): [](i) Severe abdominal tenderness [](ii) Adequate care not available at home [](iii) Severe dehydration (greater than 9% loss of body weight) []C. Significant symptoms or findings (eg, altered mental status , cardiac abnormality (eg, arrhythmia, conduction disturbance), malignant etiology requiring inpatient treatment) []13) Phosphorus less than 1 mg/dL (0.32 mmol/L) []14) Phosphorus less than 1.5 mg/dL (0.48 mmol/L) with ANY ONE of the following: []A. Patient unresponsive to outpatient and emergency treatment []B. Significant symptoms or findings (eg, weakness, altered mental status, breathing difficulty, seizures, rhabdomyolysis) []15) Phosphorus greater than 10 mg/dL (3.2 mmol/L) []16) Phosphorus greater than 4.5 mg/dL (1.45 mmol/L) (new) with ANY ONE of the following: []A. Severe medical etiology (eg, crush injury, acute renal failure) []B. Associated hypocalcemia with significant findings (eg, neurologic symptoms, altered mental status, muscle spasms, seizures, breathing difficulty, cardiac abnormality (eg, arrhythmia, conduction disturbance)) []16) Magnesium less than 1 mg/dL (0.41 mmol/L) []17) Magnesium less than 1.5 mg/dL (0.62 mmol/L) with ANY ONE of the following: []A. Patient unresponsive to outpatient and emergency treatment []B. Associated hypocalcemia with significant findings (eg, altered mental status, muscle spasms, seizures, breathing difficulty, cardiac abnormality (eg, arrhythmia, conduction disturbance)) []C. Associated hypokalemia (potassium less than 3 mEq/L (mmol/L )) with risk of arrhythmia []18) Magnesium greater than 4 mEq/L (2 mmol/L) []19) Magnesium greater than 2.5 mEq/L (1.25 mmol/L) with significant symptoms or findings (eg, weakness, altered mental status, cardiac abnormality (eg, arrhythmia, conduction disturbance), breathing difficulty, severe medical etiology (eg, renal failure, hypovolemia)) []20) Uric acid greater than 20 mg/dL (1190 micromoles/L)(9) []21) Uric acid greater than 8 mg/dL (476 micromoles/L) with significant symptoms or findings of tumor lysis syndrome (eg, creatinine greater than 1.5 times upper limit of normal, cardiac abnormality (eg , arrhythmia, conduction disturbance), seizure)(9) []III. High fever or other high-risk infection situation as indicated by ANY ONE of the following(26)(27)(28): []a. Outpatient and observation care antimicrobial treatment unavailable, not effective, or not appropriate []b. Documented bacteremia []c. Temperature greater than 104.9 degrees F (40.5 degrees C) (oral) []d. Temperature greater than 103.1 degrees F (39.5 degrees C) (oral) or less than 96.8 degrees F (36 degrees C) (rectal) that does not respond to emergency treatment and observation care []IV. High-risk febrile neutropenia[A] as indicated by ANY ONE of the following(29)(30)(31)(32): []a. Profound neutropenia[B] anticipated to extend for more than 7 days []b. Hemodynamic instability []c. Hypoxemia []d. Tachypnea []e. Altered mental status []f. New-onset abdominal pain []g. New-onset vomiting or diarrhea []h. Oral or gastrointestinal mucositis that interferes with swallowing or causes severe diarrhea []i. Focal infection (eg, cellulitis, pneumonia, central line or catheter infection, perirectal abscess) []j. Renal insufficiency (eg, GFR of less than 30 mL/min/1.73m2 (0.5 mL/sec /1.73m2)). []k. Severe liver dysfunction (transaminase levels greater than 5 times normal) []l. Platelet count less than 50,000/mm3 (50 x109/L)(33) []m. Leukemia or lymphoma induction therapy []n. Leukemia not in complete remission or with evidence of disease progression []o. Bone marrow transplant patient []p. Alemtuzumab being used for therapy []q. [employer] Association for Supportive Care in Cancer (MASCC) Risk Index score of less than 21[C](33)(35). []V. Isolation required (eg, tuberculosis that requires isolation, Ebola infection)[D](36)(37)(38)(39)(40) []. Gangrene that requires treatment beyond emergency or observation level care(41)(42) []VII. Antitoxin administration and ongoing observation required (eg, tetanus, botulism)(43)(44) []. Suspected infection with rapid progression or severe symptoms as indicated by ANY ONE of the following(45): []a. Streptococcal or staphylococcal toxic shock(46) []b. Diphtheria(47) []c. Hantavirus(48) []d. Severe acute respiratory syndrome(8)(49) []e. Anthrax(50) []f. Ebola[D](36)(37)(38) []g. Necrotizing soft tissue infection(41)(42) []h. Plague(50) []i. Other suspected infection that requires care beyond emergency or observation level care []VII. Severe adverse drug or systemic toxin reaction as indicated by ANY ONE of the following(24): []a. Serotonin syndrome(51)(52) []b. Neuroleptic malignant syndrome(51)(52) []c. Cholinergic syndrome with severe symptoms (eg, bronchorrhea, weakness , mental status changes, seizures)(53) []d. Anticholinergic syndrome []e. Sympathetic syndrome with severe symptoms (eg, seizures, mental status changes, cardiac dysrhythmias) []f. Other severe adverse drug or systemic toxin reaction that remains after emergency or observation level care (as appropriate) []VIII. Allergic reaction with severe symptoms (not responsive to emergency or observation care treatment as appropriate), including ANY ONE of the following(54): []a. Airway edema (pharyngeal, epiglottic, or laryngeal edema) []b. Stridor []c. Respiratory failure []d. Bronchospasm []e. Hypotension []IX. Environmental emergency (not responsive to emergency or observation care treatment as appropriate) as indicated by ANY ONE of the following(55)(56): []a. Hyperthermia []b. Heat stroke []c. Heat exhaustion []d. Hypothermia (temperature less than 95 degrees F (35 degrees C) rectal) (57) []e. Electrocution(58) []X. Complications of transplanted organ (ie, not covered elsewhere)[E] indicated by ANY ONE of the following(59): []a. Acute graft rejection (or graft vs. host disease)[F] requiring inpatient management (eg, intravenous immunosuppression)(60)(61)(62)( 63) []b. Acute failure of transplanted organ necessitating inpatient care (eg, cannot be managed in other setting) []c. Infection requiring inpatient management (eg, Hemodynamic instability, need for intravenous antimicrobial treatment)(64)(65) []d. Other complication of transplanted organ requiring inpatient management []XI. Systemic or Infectious Condition condition, symptom, or finding for which emergency and observation care have failed or are not considered appropriate. See General Criteria: Observation Care, General Admission Criteria or Pediatric General Admission Criteria guideline as appropriate. (Contents from SEVERE SEPSIS and SYSTEMIC OR INFECTIOUS CONDITION clinical indications for admission to inpatient care have been integrated in this form) The original [facility] [place] content created by [facility] [employer] has been revised. The portions of the content which have been revised are identified through the use of italic text or in bold and [facility] has neither reviewed nor approved the modified material. All other unmodified content is copyright [facility]. Please see references footnoted in the original [facility] edition 2016 Admission Criteria Met: Yes
[2016-06-18] MEDS: VANCOMYCIN/NS 1 GM/250 ML 1 GM/250 ML BAG IV SCH ×3 (00:32→18:26)
[2016-06-18] MEDS: NACL 0.9% 1000 ML 1,000 ML IV SCH ×2 (00:33→12:45)
[2016-06-18 07:38] LABS: Blood Urea Nitrogen 6 mg/dL (9-20); Calcium 8.7 mg/dL (8.4-10.2); Carbon Dioxide 21 mmol/L (22-30); Chloride 103.7 mmol/L (98-107); Glucose 64 mg/dL (75-100); Sodium 137 mmol/L (137-145)
[2016-06-18 07:39] LABS: Anion Gap 15 mmol/L
[2016-06-18] MEDS: NOVOLOG SUB-Q SCH ×6 (08:00→21:39)
--- NOTE | 2016-06-18 10:34 | Progress Note ---
Assessment and Plan Assessment and plan: Scalp wound infection with abscess. Wound cultures MRSA. He has been on Antibiotics for 1 month-Clindamycin and Bactrim, with no improvement. Wound care Nurse has seen patient and I discussed with her. Will consult ID Physicain to see. Continue Vancomycin iv. Contact isolation. Diabetes mellitus type 1. Fingerstick glucose qac and hs Full code status. History Interval history: scalp wound infection not healing after 1 month of clindamycin and Bactrim, pain and drainage from scalp Hospitalist Physical - Physical exam Narrative exam: Gen: Not in acute distress, HEENT: Scalp wound with drainage, covered with dressing Neck: supple, no JVD Lungs:Lungs clear to auscultation, bilaterally, no crackles or wheeze Heart S1-S2 regular, no murmurs rubs or gallop, Abdomen: soft, non tender, non distended, normal bowel sounds , Ext: No edema, clubbing or cyanosis. Neuro: Awake,alert, oriented x 3, no focal neurological sign, - Constitutional Vitals: Temp Pulse Resp BP Pulse Ox 97.5 F L 92 H 16 105/67 98 06/18/16 07:10 06/18/16 07:10 06/18/16 07:10 06/18/16 07:10 06/18/16 07:10 Results - Labs CBC & Chem 7: 06/17/16 04:42 06/18/16 06:52 Labs: Laboratory Last Values WBC 3.9 K/mm3 (4.5-11.0) L 06/17/16 04:42 RBC 3.62 M/mm3 (3.65-5.03) L 06/17/16 04:42 Hgb 9.4 gm/dl (11.8-15.2) L 06/17/16 04:42 Hct 28.8 % (35.5-45.6) L 06/17/16 04:42 MCV 79 fl (84-94) L 06/17/16 04:42 MCH 26 pg (28-32) L 06/17/16 04:42 MCHC 33 % (32-34) 06/17/16 04:42 RDW 16.1 % (13.2-15.2) H 06/17/16 04:42 Plt Count 201 K/mm3 (140-440) 06/17/16 04:42 Lymph % (Auto) 26.3 % (13.4-35.0) 06/17/16 04:42 [place] % (Auto) 10.8 % (0.0-7.3) H 06/17/16 04:42 Eos % (Auto) 2.1 % (0.0-4.3) 06/17/16 04:42 Baso % (Auto) 0.9 % (0.0-1.8) 06/17/16 04:42 Lymph # 1.0 K/mm3 (1.2-5.4) L 06/17/16 04:42 [place] # 0.4 K/mm3 (0.0-0.8) 06/17/16 04:42 Eos # 0.1 K/mm3 (0.0-0.4) 06/17/16 04:42 Baso # 0.0 K/mm3 (0.0-0.1) 06/17/16 04:42 Seg Neutrophils % 59.9 % (40.0-70.0) 06/17/16 04:42 Seg Neutrophils # 2.3 K/mm3 (1.8-7.7) 06/17/16 04:42 VBG pH 7.281 (7.320-7.420) L 06/16/16 20:21 Sodium 137 mmol/L (137-145) D 06/18/16 06:52 Potassium 3.0 mmol/L (3.6-5.0) L D 06/18/16 06:52 Chloride 103.7 mmol/L (98-107) 06/18/16 06:52 Carbon Dioxide 21 mmol/L (22-30) L D 06/18/16 06:52 Anion Gap 15 mmol/L 06/18/16 06:52 BUN 6 mg/dL (9-20) L 06/18/16 06:52 Creatinine 0.6 mg/dL (0.8-1.5) L 06/18/16 06:52 Estimated GFR > 60 ml/min 06/18/16 06:52 BUN/Creatinine Ratio 10.00 % 06/18/16 06:52 Glucose 64 mg/dL (75-100) L 06/18/16 06:52 POC Glucose 62 (70-105) L 06/18/16 06:45 Lactic Acid 4.3 mmol/L (0.7-2.0) H* 06/16/16 16:07 Calcium 8.7 mg/dL (8.4-10.2) 06/18/16 06:52 Magnesium 1.8 mg/dL (1.7-2.3) 06/16/16 16:07 Total Bilirubin 0.4 mg/dL (0.1-1.2) 06/16/16 16:07 AST 9 units/L (5-40) 06/16/16 16:07 ALT 7 units/L (7-56) 06/16/16 16:07 Alkaline Phosphatase 186 units/L (35-129) H 06/16/16 16:07 Total Creatine Kinase 23 units/L (55-170) L 06/17/16 04:42 CK-MB (CK-2) 7.4 ng/mL (0.0-4.0) H 06/17/16 04:42 CK-MB (CK-2) Rel Index 32.1 (0-4) H 06/17/16 04:42 Troponin T 0.019 ng/mL (0.00-0.029) 06/17/16 04:42 Total Protein 6.6 g/dL (6.3-8.2) 06/16/16 16:07 Albumin 3.3 g/dL (3.9-5) L 06/16/16 16:07 Albumin/Globulin Ratio 1.0 % 06/16/16 16:07 Triglycerides 151 mg/dL (2-149) H 06/16/16 16:07 Cholesterol 186 mg/dL (50-199) 06/16/16 16:07 LDL Cholesterol Direct 58 mg/dL (50-130) 06/16/16 16:07 HDL Cholesterol 98 mg/dL (40-59) H 06/16/16 16:07 Cholesterol/HDL Ratio 1.89 % 06/16/16 16:07 Urine Color Straw (Yellow) 06/16/16 19:33 Urine Turbidity Clear (Clear) 06/16/16 19:33 Urine pH 6.0 (5.0-7.0) 06/16/16 19:33 Ur Specific [place] 1.015 (1.003-1.030) 06/16/16 19:33 Urine Protein 30 mg/dl mg/dL (Negative) 06/16/16 19:33 Urine Glucose (UA) >=500 mg/dL (Negative) 06/16/16 19:33 Urine Ketones 80 mg/dL (Negative) 06/16/16 19:33 Urine Blood Neg (Negative) 06/16/16 19:33 Urine Nitrite Neg (Negative) 06/16/16 19:33 Urine Bilirubin Neg (Negative) 06/16/16 19:33 Urine Urobilinogen < 2.0 mg/dL (<2.0) 06/16/16 19:33 Ur Leukocyte Esterase Neg (Negative) 06/16/16 19:33 Urine WBC (Auto) < 1.0 /HPF (0.0-6.0) 06/16/16 19:33 Urine RBC (Auto) < 1.0 /HPF (0.0-6.0) 06/16/16 19:33 Urine Mucus Few /HPF 06/16/16 19:33
[2016-06-18] MEDS: LOVENOX SUB-Q SCH (11:53)
[2016-06-18] MEDS ORDERED: LEVEMIR SUB-Q SCH (22:00)
[2016-06-19] MEDS: NACL 0.9% 1000 ML 1,000 ML IV SCH (00:22)
[2016-06-19] MEDS: VANCOMYCIN/NS 1 GM/250 ML 1 GM/250 ML BAG IV SCH (05:14)
[2016-06-19] MEDS: K-DUR PO SCH ×3 (05:14→11:51)
[2016-06-19] MEDS: NOVOLOG SUB-Q SCH ×4 (09:21→13:18)
[2016-06-19] MEDS: LOVENOX SUB-Q SCH (09:23)
--- NOTE | 2016-06-19 09:43 | Discharge Summary ---
Providers - Providers Date of Admission: 06/16/16 22:28 Date of discharge: 06/19/16 Attending physician: ROMEL BOWLING 06/17/16 10:39 Consult to Wound/ET Nurse [CONS] Routine Reason For Exam: wound eval 06/18/16 07:29 Consult to Physician [CONS] Routine Consulting Provider: BERTA BAUTISTA Reason For Exam: non healing scalp wound infection/abscess, MRSA Place consult to:: DR. BAUTISTA Notified:: [facility] Phone number called:: [phone] Was contact made?: Yes If yes, spoke with:: FERNANDO Time called:: 09:15 Comment:: AMOS NOTIFIED Primary care physician: COMMERCIAL MAKEUP ARTIST Hospitalization Condition: Stable Disposition: DISCHARGED TO HOME OR SELFCARE - Discharge Diagnoses (1) Scalp abscess Status: Acute (2) Diabetes mellitus type I Status: Chronic Qualifiers: Diabetes mellitus complication status: D Diabetes mellitus complication detail: D Diabetic retinopathy severity: D Proliferative retinopathy type: P Diabetes mellitus macular edema: D Laterality: L Chronic kidney disease stage: C (3) Hypokalemia Status: Acute Exam - Constitutional Vitals: Temp Pulse Resp BP Pulse Ox 97.5 F L 100 H 20 159/110 99 06/19/16 07:20 06/19/16 07:20 06/19/16 07:20 06/19/16 07:20 06/19/16 07:20 Plan Activity: no restrictions Diet: low fat, low cholesterol, diabetic Additional Instructions: 1.Follow up PCP or [facility] in 1 week. 2.Follow up with Dr. Arauz, ID physician in one week. 3.Outpatient wound care Follow up with: PRIMARY MD STANLEY [Primary Care Provider] - 3-5 Days Prescriptions: Levofloxacin [Levaquin TAB] 500 mg PO QDAY #10 tablet
[2016-06-19 11:20] LABS: Anion Gap 16 mmol/L; Blood Urea Nitrogen 6 mg/dL (9-20); Calcium 8.3 mg/dL (8.4-10.2); Carbon Dioxide 24 mmol/L (22-30); Chloride 98.1 mmol/L (98-107); Glucose 192 mg/dL (75-100); Sodium 134 mmol/L (137-145)
[2016-06-19 11:27] LABS: Potassium 4.2 mmol/L (3.6-5.0)
[2016-06-19 15:34] VITALS: BP 110/76
== END 2016-06-19 16:15 | disposition home or self-care (01) | DRG 872 ==
LOC: ED 14:14 → 3A 22:28
PROVIDERS: ADMIT Internal Medicine; ATTEND Internal Medicine
DX: A41.9 Sepsis, unspecified organism (principal); L02.811 Cutaneous abscess of head [any part, except face]; E87.1 Hypo-osmolality and hyponatremia; Z88.5 Allergy status to narcotic agent; Z88.8 Allergy status to other drugs, medicaments and biological substances; Z83.3 Family history of diabetes mellitus; E87.6 Hypokalemia; E10.9 Type 1 diabetes mellitus without complications
CPT/HCPCS: 36415; 71020; 80048; 80053; 80061; 80202; 81001; 82010; 82140; 82550; 82553; 82805; 82962; 83036; 83735; 84484; 85025; 87040; 87076; 87086; 87116; 87186; 93005; 93010; 96361; 96365; J1650; J1815; J1818; J3370; J7030

== ENCOUNTER 2016-07-31 23:50 | Emergency (ER) | payer SELFPAY ==
[2016-08-01 01:05] LABS: Basophils % (Auto) 1.1 % (0.0-1.8); Eosinophils % (Auto) 4.1 % (0.0-4.3); Hematocrit 28.9 % (35.5-45.6); Hemoglobin 10.1 gm/dl (11.8-15.2); Mean Corpuscular HGB Conc 35 % (32-34); Mean Corpuscular Hemoglobin 28 pg (28-32); Mean Corpuscular Volume 80 fl (84-94); Platelet Count 338 K/mm3 (140-440); White Blood Count 4.9 K/mm3 (4.5-11.0)
[2016-08-01 01:14] LABS: Anion Gap 18 mmol/L; BUN/Creatinine Ratio 28.88; Blood Urea Nitrogen 26 mg/dL (9-20); Calcium 9.2 mg/dL (8.4-10.2); Carbon Dioxide 28 mmol/L (22-30); Chloride 95.7 mmol/L (98-107); Glucose 57 mg/dL (75-100); Potassium 3.5 mmol/L (3.6-5.0); Sodium 138 mmol/L (137-145)
[2016-08-01 02:05] LABS: Erythrocyte Sedimentation Rate 48 mm/Hr (0-20)
--- NOTE | 2016-08-01 04:16 | XRay Report ---
FINAL REPORT PROCEDURE: XR ANKLE 2V RT TECHNIQUE: RIGHT ankle radiographs, AP and lateral views. HISTORY: pain, swelling, send for report COMPARISON: No prior studies are available for comparison. FINDINGS: Fracture (s) and/or Dislocation(s): None. Alignment: Normal. Joint space(s): Normal. Soft tissues: Mild diffuse soft tissue swelling Bone mineralization: Normal. Foreign bodies: Normal. Calcaneal spurring: Normal. IMPRESSION: Evidence of an acute fracture. Mild soft tissue swelling.
--- NOTE | 2016-08-01 04:16 | XRay Report ---
FINAL REPORT PROCEDURE: XR FOOT 3 RT TECHNIQUE: RIGHT foot radiographs, AP, lateral, and oblique views. CPT 76508 HISTORY: pain, swelling, send for report COMPARISON: No prior studies are available for comparison. FINDINGS: Fracture (s) and/or Dislocation(s): None . Alignment: Normal . Joint space(s): Mild narrowing of the joint spaces.. Soft tissues: Mild diffuse soft tissue swelling. Bone mineralization: Normal . Foreign bodies: None . Calcaneal spurring: None . IMPRESSION: No evidence of an acute fracture or dislocation. Mild arthritis.
--- NOTE | 2016-08-01 04:27 | Emergency Department Report ---
ED Lower Extremity HPI - General Chief Complaint: Extremity Injury, Lower Stated Complaint: RT FOOT SWELLING W/PAIN Time Seen by Provider: 08/01/16 02:36 Source: patient Mode of arrival: Ambulatory Limitations: No Limitations - History of Present Illness Initial Comments: 30-year-old male past medical history type 1 diabetes presents with complaint of second right toe pain and swelling redness. Patient denies any direct trauma no fevers no chills. States he has had cellulitis in the past. Visible redness to distal right toe. Denies any purulent drainage. Complaint: foot injury Onset/Timin -: days(s) Injury: Toes: Right (right 2nd digit swelling) Severity scale (0 -10): 7 Worsens With: weight bearing, movement Associated Symptoms: swelling, ambulatory - Related Data Home Medications Medication Instructions Recorded Confirmed Last Taken Ferrous Sulfate PO QDAY 06/18/16 Unknown Insulin Glargine [Lantus VIAL] units SUB-Q HS 06/18/16 Unknown Previous Rx's Medication Instructions Recorded Last Taken Type Levofloxacin [Levaquin TAB] 500 mg PO QDAY #10 tablet 06/19/16 Unknown Rx Cephalexin [Keflex] 500 mg PO Q12HR #14 cap 08/01/16 Unknown Rx Ibuprofen [Motrin] 400 mg PO Q8H PRN #20 tablet 08/01/16 Unknown Rx Sulfamethoxazole/Trimethoprim 1 each PO BID #14 tablet 08/01/16 Unknown Rx [Bactrim DS TAB] Allergies Allergy/AdvReac Type Severity Reaction Status Date / Time codeine Allergy Hives Verified 05/30/16 08:52 morphine Allergy Hives Verified 05/30/16 08:52 ondansetron HCl [From Zofran] Allergy Hives Verified 05/30/16 08:52 acetaminophen [From Lortab] AdvReac Headache Verified 05/30/16 08:52 hydrocodone bitartrate AdvReac Headache Verified 05/30/16 08:52 [From Lortab] ED Review of Systems ROS: Stated complaint: RT FOOT SWELLING W/PAIN Other details as noted in HPI Constitutional: denies: chills, fever Eyes: denies: eye pain, eye discharge, vision change ENT: denies: ear pain, throat pain Respiratory: denies: cough, shortness of breath, wheezing Cardiovascular: denies: chest pain, palpitations Endocrine: no symptoms reported Gastrointestinal: denies: abdominal pain, nausea, diarrhea Genitourinary: denies: urgency, dysuria Musculoskeletal: as per HPI. denies: back pain, joint swelling, arthralgia Skin: denies: rash, lesions Neurological: denies: headache, weakness, paresthesias Psychiatric: denies: anxiety, depression Hematological/Lymphatic: denies: easy bleeding, easy bruising ED Past Medical Hx - Past Medical History Previous Medical History?: Yes Hx Congestive Heart Failure: No Hx Diabetes: Yes (IDDM) Hx Asthma: No Hx COPD: No Additional medical history: staph infection - Surgical History Past Surgical History?: Yes Additional Surgical History: wound debridement (staph infection)--NECK AND BACK - Social History Smoking Status: Never Smoker Substance Use Type: None - Medications Home Medications: Home Medications Medication Instructions Recorded Confirmed Last Taken Type Ferrous Sulfate PO QDAY 06/18/16 Unknown History Insulin Glargine [Lantus VIAL] units SUB-Q HS 06/18/16 Unknown History Levofloxacin [Levaquin TAB] 500 mg PO QDAY #10 tablet 06/19/16 Unknown Rx Cephalexin [Keflex] 500 mg PO Q12HR #14 cap 08/01/16 Unknown Rx Ibuprofen [Motrin] 400 mg PO Q8H PRN #20 tablet 08/01/16 Unknown Rx Sulfamethoxazole/Trimethoprim 1 each PO BID #14 tablet 08/01/16 Unknown Rx [Bactrim DS TAB] ED Physical Exam - General Limitations: No Limitations General appearance: alert, in no apparent distress - Head Head exam: Present: atraumatic, normocephalic - Eye Eye exam: Present: normal appearance, PERRL, EOMI - ENT ENT exam: Present: mucous membranes moist - Neck Neck exam: Present: normal inspection - Respiratory Respiratory exam: Present: normal lung sounds bilaterally. Absent: respiratory distress - Cardiovascular Cardiovascular Exam: Present: regular rate, normal rhythm. Absent: systolic murmur, diastolic murmur, rubs, gallop - GI/Abdominal GI/Abdominal exam: Present: soft, normal bowel sounds - Rectal Rectal exam: Present: deferred - Extremities Exam Extremities exam: Present: normal inspection - Expanded Lower Extremity Exam Right Upper Leg exam: Present: normal inspection, full ROM Knee exam: Present: normal inspection, full ROM Lower Leg exam: Present: normal inspection, full ROM Foot/Toe exam: Present: tenderness, erythema (2nd digit distal erythema and mild swelling) Neuro vascular tendon exam: Present: no vascular compromise 1 - redness and erythema here - Back Exam Back exam: Present: normal inspection - Neurological Exam Neurological exam: Present: alert, oriented X3, CN II-XII intact, normal gait - Psychiatric Psychiatric exam: Present: normal affect, normal mood - Skin Skin exam: Present: warm, dry, intact, normal color. Absent: rash ED Course Vital Signs 08/01/16 08/01/16 00:01 05:02 Temperature 97.4 F L Pulse Rate 102 H 76 Respiratory 16 18 Rate Blood Pressure 119/79 119/89 [Right] O2 Sat by Pulse 100 99 Oximetry ED Lower Extremity MDM - Lab Data Result diagrams: 08/01/16 00:28 08/01/16 00:28 - Medical Decision Making A/P: Toe cellulitis 1- labs unremarkable, x-ray shows no fracture or suggestion of osteomyelitis 2- Bactrim and Keflex twice a day 7 days 3- Motrin when necessary for discomfort 4- follow up with primary care doctor and podiatry 5- case discussed with Dr. Crane Critical care attestation.: If time is entered above; I have spent that time in minutes in the direct care of this critically ill patient, excluding procedure time. ED Disposition Clinical Impression: Cellulitis, toe Qualifiers: Laterality: right Qualified Code(s): L03.031 - Cellulitis of right toe Disposition: DC-01 TO HOME OR SELFCARE Is pt being admited?: No Does the pt Need Aspirin: No Condition: Stable Instructions: Cellulitis (ED) Prescriptions: Cephalexin [Keflex] 500 mg PO Q12HR #14 cap Ibuprofen [Motrin] 400 mg PO Q8H PRN #20 tablet PRN Reason: Pain Sulfamethoxazole/Trimethoprim [Bactrim DS TAB] 1 each PO BID #14 tablet Referrals: LIN YEPEZ DPM [Staff Physician] - 3-5 Days ANN DICKSON MD [Staff Physician] - 3-5 Days Time of Disposition: 04:50
[2016-08-01] MEDS ORDERED: MOTRIN PO ONE (04:52)
[2016-08-01 05:02] VITALS: BP 119/89
== END 2016-08-01 05:03 | disposition home or self-care (01) ==
LOC: ED 23:50
DX: L03.031 Cellulitis of right toe (principal); E10.9 Type 1 diabetes mellitus without complications; Z88.5 Allergy status to narcotic agent; Z88.8 Allergy status to other drugs, medicaments and biological substances; Z79.4 Long term (current) use of insulin
CPT/HCPCS: 36415; 80048; 82140; 82550; 82805; 82962; 85025; 85652; 86140

== ENCOUNTER 2016-08-13 15:28 | Inpatient (IN) | payer SELFPAY ==
[2016-08-13 17:07] LABS: Basophils % (Auto) 1.4 % (0.0-1.8); Hematocrit 33.3 % (35.5-45.6); Hemoglobin 11.1 gm/dl (11.8-15.2); Mean Corpuscular HGB Conc 33 % (32-34); Mean Corpuscular Hemoglobin 27 pg (28-32); Mean Corpuscular Volume 79 fl (84-94); Platelet Count 378 K/mm3 (140-440); Red Blood Count 4.21 M/mm3 (3.65-5.03); Red Cell Distribution Width 15.3 % (13.2-15.2); White Blood Count 5.3 K/mm3 (4.5-11.0)
[2016-08-13 17:28] LABS: Alanine Aminotransferase 20 units/L (7-56); Albumin 3.9 g/dL (3.9-5); Alkaline Phosphatase 249 units/L (35-129); Anion Gap 19 mmol/L; Blood Urea Nitrogen 12 mg/dL (9-20); Calcium 9.5 mg/dL (8.4-10.2); Carbon Dioxide 23 mmol/L (22-30); Chloride 98.9 mmol/L (98-107); Glucose 88 mg/dL (75-100); Potassium 3.9 mmol/L (3.6-5.0); Sodium 137 mmol/L (137-145); Total Protein 7.8 g/dL (6.3-8.2)
[2016-08-14 04:42] LABS: Anion Gap 18 mmol/L; BUN/Creatinine Ratio 15.55; Blood Urea Nitrogen 14 mg/dL (9-20); Calcium 8.8 mg/dL (8.4-10.2); Carbon Dioxide 24 mmol/L (22-30); Chloride 94.6 mmol/L (98-107); Potassium 4.9 mmol/L (3.6-5.0); Sodium 132 mmol/L (137-145)
[2016-08-14 05:05] LABS: Glucose 598 mg/dL (75-100)
[2016-08-14] MEDS ORDERED: CLEOCIN 300 MG/50 mL 300 MG/50 ML BAG IV ONE (07:01)
[2016-08-14] MEDS ORDERED: VIBRAMYCIN PO ONE (07:01)
[2016-08-14] MEDS ORDERED: NACL 0.9% 1000 ML 2,000 ML IV ONE (07:01)
--- NOTE | 2016-08-14 07:02 | Emergency Department Report ---
ED General Adult HPI - General Chief complaint: Extremity Problem,Nontraumatic Stated complaint: RIGHT FOOT SWELLING Time Seen by Provider: 08/14/16 06:47 Source: patient, RN notes reviewed, old records reviewed Mode of arrival: Ambulatory Limitations: No Limitations - History of Present Illness Initial comments: This is a 30-year-old male. I have previously evaluated him. Past medical history includes brittle diabetes, multiple admissions for diabetic ketoacidosis , multiple staph infections. The patient presents to the ER today complaining of right foot pain, redness and swelling. It has been present since August 01. At that time, the patient was prescribed Keflex and Bactrim, and he reports compliance with this. he denies headache, neck pain, chest pain, abdominal pain and shortness of breath. The patient reports that he does not have any dietary indiscretions, and he has been compliant with his insulin therapy with the exception of the past 12 hours, as the patient was waiting in the waiting room without his insulin, as it needs to be refrigerated. Of note, the patient had x-rays performed on the week of July 31, which demonstrated no fracture or dislocation in the foot. 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 -: Gradual Location: right, lower extremity Severity scale (0 -10): 5 Consistency: constant Improves with: none Worsens with: none Associated Symptoms: denies other symptoms - Related Data Home Medications Medication Instructions Recorded Confirmed Last Taken Ferrous Sulfate PO QDAY 06/18/16 Unknown Insulin Glargine [Lantus VIAL] units SUB-Q HS 06/18/16 Unknown Previous Rx's Medication Instructions Recorded Last Taken Type Levofloxacin [Levaquin TAB] 500 mg PO QDAY #10 tablet 06/19/16 Unknown Rx Cephalexin [Keflex] 500 mg PO Q12HR #14 cap 08/01/16 Unknown Rx Ibuprofen [Motrin] 400 mg PO Q8H PRN #20 tablet 08/01/16 Unknown Rx Sulfamethoxazole/Trimethoprim 1 each PO BID #14 tablet 08/01/16 Unknown Rx [Bactrim DS TAB] Allergies Allergy/AdvReac Type Severity Reaction Status Date / Time codeine Allergy Hives Verified 08/14/16 07:20 morphine Allergy Hives Verified 08/14/16 07:20 ondansetron HCl [From Zofran] Allergy Hives Verified 08/14/16 07:20 acetaminophen [From Lortab] AdvReac Headache Verified 08/14/16 07:20 hydrocodone bitartrate AdvReac Headache Verified 08/14/16 07:20 [From Lortab] ED Review of Systems ROS: Stated complaint: RIGHT FOOT SWELLING Other details as noted in HPI Constitutional: denies: fever, malaise Eyes: denies: vision change ENT: denies: epistaxis Respiratory: denies: cough Cardiovascular: denies: chest pain Genitourinary: denies: dysuria Musculoskeletal: joint swelling, arthralgia, myalgia Skin: as per HPI, lesions Neurological: denies: headache, weakness ED Past Medical Hx - Past Medical History Hx Congestive Heart Failure: No Hx Diabetes: Yes (IDDM) Hx Asthma: No Hx COPD: No Additional medical history: staph infection - Surgical History Past Surgical History?: Yes Additional Surgical History: wound debridement (staph infection)--NECK AND BACK - Social History Smoking Status: Never Smoker Substance Use Type: None - Medications Home Medications: Home Medications Medication Instructions Recorded Confirmed Last Taken Type Ferrous Sulfate PO QDAY 06/18/16 Unknown History Insulin Glargine [Lantus VIAL] units SUB-Q HS 06/18/16 Unknown History Levofloxacin [Levaquin TAB] 500 mg PO QDAY #10 tablet 06/19/16 Unknown Rx Cephalexin [Keflex] 500 mg PO Q12HR #14 cap 08/01/16 Unknown Rx Ibuprofen [Motrin] 400 mg PO Q8H PRN #20 tablet 08/01/16 Unknown Rx Sulfamethoxazole/Trimethoprim 1 each PO BID #14 tablet 08/01/16 Unknown Rx [Bactrim DS TAB] ED Physical Exam - General Limitations: No Limitations General appearance: alert, in no apparent distress - Head Head exam: Present: atraumatic, normocephalic - Eye Eye exam: Present: normal appearance, EOMI. Absent: nystagmus - ENT ENT exam: Present: normal exam, normal orophraynx, mucous membranes moist, normal external ear exam - Neck Neck exam: Present: normal inspection, full ROM. Absent: tenderness, meningismus - Respiratory Respiratory exam: Present: normal lung sounds bilaterally. Absent: respiratory distress, wheezes, rales, rhonchi, stridor, chest wall tenderness, accessory muscle use, decreased breath sounds, prolonged expiratory - Cardiovascular Cardiovascular Exam: Present: normal rhythm, tachycardia, normal heart sounds. Absent: systolic murmur, diastolic murmur, rubs, gallop - GI/Abdominal GI/Abdominal exam: Present: soft, normal bowel sounds. Absent: distended, tenderness, guarding, rebound, rigid, pulsatile mass - Rectal Rectal exam: Present: deferred - Extremities Exam Extremities exam: Present: normal inspection, normal capillary refill, pedal edema, other (the right distal foot is swollen, and red. The compartments are soft. 2+ pulses are noted in the bilateral lower extremities. There is no streaking beyond the mid foot.). Absent: calf tenderness - Back Exam Back exam: Present: normal inspection, full ROM. Absent: tenderness, CVA tenderness (R), CVA tenderness (L), muscle spasm, paraspinal tenderness, vertebral tenderness - Neurological Exam Neurological exam: Present: alert, oriented X3, other (Extraocular movements intact. Tongue midline. No facial droop. Facial sensation intact to light touch in the V1, V2, V3 distribution bilaterally. 5 and 5 strength in 4 extremities.. Sensation is intact to light touch in 4 extremities.). Absent: motor sensory deficit - Psychiatric Psychiatric exam: Present: normal affect, normal mood - Skin Skin exam: Present: warm, rash, erythema ED Course Vital Signs 08/13/16 08/14/16 08/14/16 16:17 03:07 03:13 Temperature 98.4 F 98.5 F Pulse Rate 109 H 92 H Respiratory 14 Rate Blood Pressure 97/65 Blood Pressure 111/80 [Left] O2 Sat by Pulse 99 98 98 Oximetry 08/14/16 09:00 Temperature 97.5 F L Pulse Rate 93 H Respiratory 16 Rate Blood Pressure Blood Pressure 109/72 [Left] O2 Sat by Pulse 100 Oximetry ED Medical Decision Making - Lab Data Result diagrams: 08/13/16 16:51 08/14/16 04:10 Vital Signs 08/13/16 08/14/16 08/14/16 16:17 03:07 03:13 Temperature 98.4 F 98.5 F Pulse Rate 109 H 92 H Respiratory 14 Rate Blood Pressure 97/65 Blood Pressure 111/80 [Left] O2 Sat by Pulse 99 98 98 Oximetry Lab Results 08/13/16 08/13/16 08/14/16 Range/Units 16:51 16:51 00:27 WBC 5.3 (4.5-11.0) K/mm3 RBC 4.21 (3.65-5.03) M/mm3 Hgb 11.1 L (11.8-15.2) gm/dl Hct 33.3 L (35.5-45.6) % MCV 79 L (84-94) fl MCH 27 L (28-32) pg MCHC 33 (32-34) % RDW 15.3 H (13.2-15.2) % Plt Count 378 (140-440) K/mm3 Lymph % (Auto) 27.6 (13.4-35.0) % [place] % (Auto) 6.7 (0.0-7.3) % Eos % (Auto) 5.0 H (0.0-4.3) % Baso % (Auto) 1.4 (0.0-1.8) % Lymph # 1.5 (1.2-5.4) K/mm3 [place] # 0.4 (0.0-0.8) K/mm3 Eos # 0.3 (0.0-0.4) K/mm3 Baso # 0.1 (0.0-0.1) K/mm3 Seg Neutrophils % 59.3 (40.0-70.0) % Seg Neutrophils # 3.2 (1.8-7.7) K/mm3 VBG pH (7.320-7.420) Sodium 137 (137-145) mmol/L Potassium 3.9 (3.6-5.0) mmol/L Chloride 98.9 (98-107) mmol/L Carbon Dioxide 23 (22-30) mmol/L Anion Gap 19 mmol/L BUN 12 (9-20) mg/dL Creatinine 0.8 (0.8-1.5) mg/dL Estimated GFR > 60 ml/min BUN/Creatinine Ratio 15.00 % Glucose 88 (75-100) mg/dL POC Glucose 500 H (70-105) Calcium 9.5 (8.4-10.2) mg/dL Total Bilirubin 0.30 (0.1-1.2) mg/dL AST 30 (5-40) units/L ALT 20 (7-56) units/L Alkaline Phosphatase 249 H (35-129) units/L Total Creatine Kinase (55-170) units/L C-Reactive Protein (0.00-1.30) mg/dL Total Protein 7.8 (6.3-8.2) g/dL Albumin 3.9 (3.9-5) g/dL Albumin/Globulin Ratio 1.0 % 08/14/16 08/14/16 08/14/16 Range/Units 04:01 04:10 04:10 WBC (4.5-11.0) K/mm3 RBC (3.65-5.03) M/mm3 Hgb (11.8-15.2) gm/dl Hct (35.5-45.6) % MCV (84-94) fl MCH (28-32) pg MCHC (32-34) % RDW (13.2-15.2) % Plt Count (140-440) K/mm3 Lymph % (Auto) (13.4-35.0) % [place] % (Auto) (0.0-7.3) % Eos % (Auto) (0.0-4.3) % Baso % (Auto) (0.0-1.8) % Lymph # (1.2-5.4) K/mm3 [place] # (0.0-0.8) K/mm3 Eos # (0.0-0.4) K/mm3 Baso # (0.0-0.1) K/mm3 Seg Neutrophils % (40.0-70.0) % Seg Neutrophils # (1.8-7.7) K/mm3 VBG pH 7.311 L (7.320-7.420) Sodium 132 L (137-145) mmol/L Potassium 4.9 D (3.6-5.0) mmol/L Chloride 94.6 L (98-107) mmol/L Carbon Dioxide 24 (22-30) mmol/L Anion Gap 18 mmol/L BUN 14 (9-20) mg/dL Creatinine 0.9 (0.8-1.5) mg/dL Estimated GFR > 60 ml/min BUN/Creatinine Ratio 15.55 % Glucose 598 H* (75-100) mg/dL POC Glucose > 500 H (70-105) Calcium 8.8 (8.4-10.2) mg/dL Total Bilirubin (0.1-1.2) mg/dL AST (5-40) units/L ALT (7-56) units/L Alkaline Phosphatase (35-129) units/L Total Creatine Kinase (55-170) units/L C-Reactive Protein (0.00-1.30) mg/dL Total Protein (6.3-8.2) g/dL Albumin (3.9-5) g/dL Albumin/Globulin Ratio % /23/17 Range/Units 07:19 WBC (4.5-11.0) K/mm3 RBC (3.65-5.03) M/mm3 Hgb (11.8-15.2) gm/dl Hct (35.5-45.6) % MCV (84-94) fl MCH (28-32) pg MCHC (32-34) % RDW (13.2-15.2) % Plt Count (140-440) K/mm3 Lymph % (Auto) (13.4-35.0) % [place] % (Auto) (0.0-7.3) % Eos % (Auto) (0.0-4.3) % Baso % (Auto) (0.0-1.8) % Lymph # (1.2-5.4) K/mm3 [place] # (0.0-0.8) K/mm3 Eos # (0.0-0.4) K/mm3 Baso # (0.0-0.1) K/mm3 Seg Neutrophils % (40.0-70.0) % Seg Neutrophils # (1.8-7.7) K/mm3 VBG pH (7.320-7.420) Sodium (137-145) mmol/L Potassium (3.6-5.0) mmol/L Chloride (98-107) mmol/L Carbon Dioxide (22-30) mmol/L Anion Gap mmol/L BUN (9-20) mg/dL Creatinine (0.8-1.5) mg/dL Estimated GFR ml/min BUN/Creatinine Ratio % Glucose (75-100) mg/dL POC Glucose (70-105) Calcium (8.4-10.2) mg/dL Total Bilirubin (0.1-1.2) mg/dL AST (5-40) units/L ALT (7-56) units/L Alkaline Phosphatase (35-129) units/L Total Creatine Kinase 53 L (55-170) units/L C-Reactive Protein 2.50 H (0.00-1.30) mg/dL Total Protein (6.3-8.2) g/dL Albumin (3.9-5) g/dL Albumin/Globulin Ratio % - Radiology Data Radiology results: report reviewed, image reviewed X-ray of the right foot demonstrates severe DJD, this appears new when compared to prior x-ray. - Medical Decision Making Differential diagnosis: Osteomyelitis, cellulitis, diabetic ketoacidosis, myositis, hyperglycemic state Assessment and plan: 30-year-old male with progressive right foot swelling and redness, most likely has diabetic peripheral neuropathy, some may have decreased pain sensation. The patient is loaded with IV fluids, insulin, doxycycline and clindamycin. Sedimentation rate, CRP are elevated. He is otherwise afebrile with reassuring vital signs. Given worsening physical exam findings, worsening x-ray findings, concern for osteomyelitis, hyperglycemic state, patient to be admitted for IV fluids, IV antibiotics, further workup and evaluation for possible osteomyelitis. The case is presented to the nurse practitioner, FRANCISCO Ugalde, who accepts the patient to the internal medicine service for further evaluation and management. Critical care attestation.: If time is entered above; I have spent that time in minutes in the direct care of this critically ill patient, excluding procedure time. ED Disposition Clinical Impression: Diabetic neuropathy, Hyperglycemia, Cellulitis of right foot Disposition: 09 OP ADMIT IP TO THIS HOSP Is pt being admited?: Yes Condition: Good
--- NOTE | 2016-08-14 07:13 | Admit Criteria Form ---
Admission Criteria Documentation: CELLULITIS Clinical Indications for Admission to Inpatient Care (Place 'X' for any and all applicable criteria): Admission is indicated for ANY ONE of the following(1)(2)(3)(4)(5): [ ]I. Limb-threatening infection [X]II. High-risk comorbid condition as indicated by ANY ONE of the following: [X]a) Uncontrolled diabetes (eg, HbA1c greater than 10% (0.1)) [ ]b) Cirrhosis [ ]c) Neutropenia [ ]d) Asplenia [ ]e) Immunosuppression [ ]f) Symptomatic heart failure [ ]III. Failure of outpatient therapy as indicated by ALL of the following: [ ]a) Progression or no improvement after adequate trial (minimum of 48 hours, with longer period for stable lower extremity infection) [ ]b) Adequate antibiotic regimen as indicated by use of ANY ONE of the following: [ ]i) First-generation cephalosporin (e.g., cephalexin) [ ]ii) Antistaphylococcal penicillin (e.g., dicloxacillin) [ ]iii) Penicillin-allergic patient regimen (clindamycin, extended-spectrum fluoroquinolone, or doxycycline) [ ]iv) Resistant organism (eg, methicillin-resistant Staphylococcus aureus) regimen (6) [ ]c) Outpatient intravenous therapy regimen is not appropriate due to ANY ONE of the following. (7)(8)(9)(10): [ ]i) It was tried and was not successful (eg, progression of infection). [ ]ii) It is not available or cannot be arranged in a clinically appropriate time frame (e.g., the next day). [ ]iii) Clinical presentation (eg, acuity of infection, rapidity of progression, confirmed or suspected bacteremia) is judged to require ALL of the following: [ ]1) Immediate initiation of intravenous therapy ( eg, cannot wait for next day) [ ]2) Intensity of patient monitoring and observation (eg, vital sign measurement, checks for infection progression) that cannot be provided at other than inpatient level of care [ ]IV. Mental status changes [ ]V. Bacteremia [ ]. Hemodynamic instability [ ]VII. Suspected necrotizing soft tissue infection (e.g., gas in tissue)(11)( 12) [ ]VIII. Orbital infection (13)(14) [ ]IX. Associated surgical procedure (e.g., abscess drainage, debridement) not amenable to outpatient, emergency department, or observation care [ ]X. Cutaneous gangrene [ ]XI. High fever (temperature greater than 39.5 degrees C (103.1 degrees F) (oral)) not responsive to outpatient, emergency department, or observation care therapy [ ]XIII. Inpatient admission required rather than observation care (Also use Cellulitis: Observation Care as appropriate) because of ANY ONE of the following : [ ]a) Periorbital or perineal infection that is severe or worsening [ ]b) Severe pain requiring acute inpatient management [ ]c) IV fluid to replace significant ongoing (e.g., for over 24 hours) losses (greater than 3L/m2 per day) [ ]d) Compartment syndrome monitoring (17) [ ]e) Strict or protective (eg, laminar flow) isolation [ ]f) Urgent debridement or skin grafting [ ]g) Bone or joint debridement [ ]h) Immediate inpatient surgery [ ]i) Other condition, treatment or monitoring requiring inpatient admission Extended stay beyond goal length of stay may be needed for (1)(18): [ ]a) Necrotizing soft tissue infection or fasciitis [ ]b) Gram-negative infection [ ]c) Methicillin-resistant Staphylococcal aureus (MRSA) infection [ ]d) Peripheral venous insufficiency with cellulitis [ ]e) Extensive edema [ ]f) Sepsis or continued Hemodynamic instability [ ]g) Continued high fever or mental status change [ ]h) Bacteremia [ ]i) Active serious comorbid conditions ( eg, heart failure, renal insufficiency) The original [facility] content created by [facility] has been revised. The portions of the content which have been revised are identified through the use of italic text or in bold, and [facility] has neither reviewed nor approved the modified material. All other unmodified content is copyright [facility] Please see references footnoted in the original [facility] [employer] edition 2016 Admission Criteria Met: Yes
--- NOTE | 2016-08-14 07:25 | XRay Report ---
Right foot 2 views: History: Swelling to right foot. Findings: Generalized osteopenia. Severe arthritic changes at talonavicular joint and the first tarsometatarsal joint. No obvious evidence of acute fracture. Impression: Severe arthritic changes as detailed above.
[2016-08-14 07:54] LABS: C-Reactive Protein 2.5 mg/dL (0.00-1.30)
[2016-08-14] MEDS ORDERED: ZOFRAN IV PRN (08:14)
[2016-08-14] MEDS ORDERED: DULCOLAX PR PRN (08:14)
[2016-08-14] MEDS ORDERED: TYLENOL PO PRN (08:14)
[2016-08-14] MEDS ORDERED: MILK OF MAGNESIA PO PRN (08:14)
[2016-08-14] MEDS ORDERED: D50W (25GM) IV PRN (08:16)
[2016-08-14] MEDS ORDERED: VANCOMYCIN PHARMACY TO DOSE IV SCH (09:00)
[2016-08-14] MEDS ORDERED: VIBRAMYCIN ONE (09:13)
[2016-08-14] MEDS ORDERED: NACL 0.9% 1000 ML 1,000 ML ONE (09:23)
[2016-08-14] MEDS ORDERED: MOTRIN PO PRN (10:42)
[2016-08-14] MEDS ORDERED: NOVOLOG SUB-Q SCH ×2 (11:30→22:00)
[2016-08-14] MEDS: NOVOLOG SUB-Q SCH ×3 (11:30→18:04)
--- NOTE | 2016-08-14 11:30 | History and Physical Report ---
History of Present Illness Date of examination: 07/23/16 Date of admission: 08/14/16 08:14 Chief complaint: Right leg swelling and pain History of present illness: Patient is a 30 years old male with a past medical history of uncontrolled Type 1 diabetes who presents to ED complaining of right foot pain, swelling and redness. The pain waxed and waned and was about a 3/10 and more intense than the chronic right foot pain episodes he experiences periodically from his right foot. Patient reported that he has had right foot pain since Jul 2015 and has received multiple course of abx, he is currently being treated with Keflex and Bactrim and he reports compliance with the treatment. He had some fever and chills over the past few days before coming into the emergency room, but did not check his temperature. He denies chest pain, shortness of breath, headache, neck pain or abdominal pain. 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 Past History Past Medical History: diabetes (Type 1), other (Multiple Staph infections, hx of MRSA infection) Past Surgical History: No surgical history Social history: no significant social history Family history: diabetes Medications and Allergies Allergies Allergy/AdvReac Type Severity Reaction Status Date / Time codeine Allergy Hives Verified 08/14/16 07:20 morphine Allergy Hives Verified 08/14/16 07:20 ondansetron HCl [From Zofran] Allergy Hives Verified 08/14/16 07:20 acetaminophen [From Lortab] AdvReac Headache Verified 08/14/16 07:20 hydrocodone bitartrate AdvReac Headache Verified 08/14/16 07:20 [From Lortab] Home Medications Medication Instructions Recorded Confirmed Last Taken Type Ferrous Sulfate PO QDAY 06/18/16 Unknown History Insulin Glargine [Lantus VIAL] units SUB-Q HS 06/18/16 Unknown History Levofloxacin [Levaquin TAB] 500 mg PO QDAY #10 tablet 06/19/16 Unknown Rx Cephalexin [Keflex] 500 mg PO Q12HR #14 cap 08/01/16 Unknown Rx Ibuprofen [Motrin] 400 mg PO Q8H PRN #20 tablet 08/01/16 Unknown Rx Sulfamethoxazole/Trimethoprim 1 each PO BID #14 tablet 08/01/16 Unknown Rx [Bactrim DS TAB] Active Meds: Active Medications Acetaminophen (Tylenol) 650 mg PO Q4H PRN PRN Reason: Pain MILD(1-3)/Fever >100.5/MCKEON Bisacodyl (Dulcolax) 10 mg [place] QDAY PRN PRN Reason: Constipation unrelieved by MOM Dextrose (D50w (25gm)) 50 ml IV PRN PRN PRN Reason: Hypoglycemia Enoxaparin Sodium (Lovenox) 40 mg SUB-Q QDAY [facility] Vancomycin HCl (Vancomycin/Ns 1 Gm/250 Ml) 1 gm in 250 mls @ 166.667 mls/hr IV Q12H [facility] Piperacillin Sod/Tazobactam Sod (Zosyn/Ns 4.5gm/100ml) 4.5 gm in 100 mls @ 200 mls/hr IV Q8HR [facility] PRN Reason: Protocol Ibuprofen (Motrin) 400 mg PO Q8H PRN PRN Reason: Pain Insulin Aspart (Novolog) 0 units SUB-Q AC [facility] PRN Reason: Protocol Insulin Aspart (Novolog) 0 units SUB-Q QHS [facility] PRN Reason: Protocol Insulin Aspart (Novolog) 5 units SUB-Q AC [facility] Insulin Detemir (Levemir) 20 units SUB-Q QHS [facility] Magnesium Hydroxide (Milk Of Magnesia) 30 ml PO Q4H PRN PRN Reason: Constipation Vancomycin HCl (Vancomycin Pharmacy To Dose) 1 each IV PKCONSULT [facility] PRN Reason: Protocol Review of Systems All systems: negative Constitutional: fever, chills, no weight loss, no night sweats, no fatigue, no weakness Ears, nose, mouth and throat: no ear pain, no ear discharge, no tinnitis, no decreased hearing Cardiovascular: no chest pain, no orthopnea, no palpitations Respiratory: no cough, no cough with sputum, no excessive sputum Gastrointestinal: no abdominal pain, no nausea, no vomiting Genitourinary Male: no dysuria, no hematuria, no flank pain Musculoskeletal: no neck stiffness, no neck pain, no shooting arm pain, no arm numbness/tingling (little dark) Integumentary: no rash, no pruritis, no redness, no wounds Neurological: no weakness, no parathesias, no numbness, no tingling Psychiatric: no anxiety, no memory loss, no change in sleep habits, no sleep disturbances, no insomnia, no hypersomnia Endocrine: no cold intolerance, no heat intolerance, no polyphagia, no excessive thirst Hematologic/Lymphatic: no easy bruising, no easy bleeding Allergic/Immunologic: no urticaria, no allergic rhinitis Exam - Constitutional Vitals: Temp Pulse Resp BP Pulse Ox 97.5 F L 93 H 16 109/72 100 08/14/16 09:00 08/14/16 09:00 08/14/16 09:00 08/14/16 09:00 08/14/16 09:00 General appearance: Present: no acute distress, well-nourished - EENT Eyes: Present: PERRL, EOM intact ENT: hearing intact, clear oral mucosa, dentition normal - Neck Neck: Present: supple, normal ROM - Respiratory Respiratory effort: normal - Cardiovascular Heart rate: 93 Rhythm: regular Heart Sounds: Present: S1 & S2 - Extremities Extremities: no ischemia (low), pulses intact (I was not able to palpate right foot DP and PT) Extremity abnormal: edema (right foot sweeling and redness ), tenderness (right foot) Peripheral Pulses: within normal limits - Abdominal General gastrointestinal: Present: soft, non-tender Male genitourinary: Present: deferred - Rectal Rectal Exam: deferred - Integumentary Integumentary: Present: clear, warm, dry, erythema (Right foot ) - Musculoskeletal Musculoskeletal: gait normal, strength equal bilaterally - Psychiatric Psychiatric: appropriate mood/affect, intact judgment & insight - Neurologic Neurologic: CNII-XII intact, moves all extremities - Allied Health Allied health notes reviewed: nursing Results - Labs CBC & Chem 7: 08/15/16 08:26 08/15/16 05:53 Labs: Laboratory Last Values WBC 5.3 K/mm3 (4.5-11.0) 08/13/16 16:51 RBC 4.21 M/mm3 (3.65-5.03) 08/13/16 16:51 Hgb 11.1 gm/dl (11.8-15.2) L 08/13/16 16:51 Hct 33.3 % (35.5-45.6) L 08/13/16 16:51 MCV 79 fl (84-94) L 08/13/16 16:51 MCH 27 pg (28-32) L 08/13/16 16:51 MCHC 33 % (32-34) 08/13/16 16:51 RDW 15.3 % (13.2-15.2) H 08/13/16 16:51 Plt Count 378 K/mm3 (140-440) 08/13/16 16:51 Lymph % (Auto) 27.6 % (13.4-35.0) 08/13/16 16:51 [place] % (Auto) 6.7 % (0.0-7.3) 08/13/16 16:51 Eos % (Auto) 5.0 % (0.0-4.3) H 08/13/16 16:51 Baso % (Auto) 1.4 % (0.0-1.8) 08/13/16 16:51 Lymph # 1.5 K/mm3 (1.2-5.4) 08/13/16 16:51 [place] # 0.4 K/mm3 (0.0-0.8) 08/13/16 16:51 Eos # 0.3 K/mm3 (0.0-0.4) 08/13/16 16:51 Baso # 0.1 K/mm3 (0.0-0.1) 08/13/16 16:51 Seg Neutrophils % 59.3 % (40.0-70.0) 08/13/16 16:51 Seg Neutrophils # 3.2 K/mm3 (1.8-7.7) 08/13/16 16:51 ESR 50 mm/Hr (0-20) 08/14/16 07:19 VBG pH 7.311 (7.320-7.420) L 08/14/16 04:10 Sodium 132 mmol/L (137-145) L 08/14/16 04:10 Potassium 4.9 mmol/L (3.6-5.0) D 08/14/16 04:10 Chloride 94.6 mmol/L (98-107) L 08/14/16 04:10 Carbon Dioxide 24 mmol/L (22-30) 08/14/16 04:10 Anion Gap 18 mmol/L 08/14/16 04:10 BUN 14 mg/dL (9-20) 08/14/16 04:10 Creatinine 0.9 mg/dL (0.8-1.5) 08/14/16 04:10 Estimated GFR > 60 ml/min 08/14/16 04:10 BUN/Creatinine Ratio 15.55 % 08/14/16 04:10 Glucose 598 mg/dL (75-100) H* 08/14/16 04:10 POC Glucose 475 (70-105) H 08/14/16 09:31 Calcium 8.8 mg/dL (8.4-10.2) 08/14/16 04:10 Total Bilirubin 0.30 mg/dL (0.1-1.2) 08/13/16 16:51 AST 30 units/L (5-40) 08/13/16 16:51 ALT 20 units/L (7-56) 08/13/16 16:51 Alkaline Phosphatase 249 units/L (35-129) H 08/13/16 16:51 Total Creatine Kinase 53 units/L (55-170) L 08/14/16 07:19 C-Reactive Protein 2.50 mg/dL (0.00-1.30) H 08/14/16 07:19 Total Protein 7.8 g/dL (6.3-8.2) 08/13/16 16:51 Albumin 3.9 g/dL (3.9-5) 08/13/16 16:51 Albumin/Globulin Ratio 1.0 % 08/13/16 16:51 - Imaging and Cardiology Chest x-ray: image reviewed (Right foot Xray Severe arthritic changes at talonavicular joint and first tarsometatarsal joint.) Assessment and Plan - Patient Problems (1) Cellulitis of right foot Current Visit: Yes Status: Acute Plan to address problem: Patient will admit to [facility] floor Right foot Xray shows Severe arthritic changes at talonavicular and first tarsometatarsal joint. We initiated empiric treatment with IV Vancomycin and Zosyn Follow blood and wound cultures MRI of the right food ordered. We will get infectious diseases consult (2) Hyperglycemic hyperosmolar nonketotic coma Current Visit: Yes Status: Acute Plan to address problem: Patient received 10 units regular insulin ED then has blood glucose went down to 275 IV hydration Accu-Chek before meals and at bedtime Sliding scale insulin/NovoLog Consistent carbohydrate diet as tolerated (3) Hyponatremia Current Visit: Yes Status: Acute Plan to address problem: pseudohyponatremia secondary to hyperglycaemia IV hydration with normal saline Closely monitor electrolytes (4) DVT prophylaxis Current Visit: Yes Status: Acute Plan to address problem: Marilynx
[2016-08-14] MEDS: ZOSYN/NS 4.5GM/100ML 4.5 GM/100 ML VIAL IV SCH ×2 (15:08→22:30)
--- NOTE | 2016-08-14 15:19 | Magnetic Resonance Report ---
FINAL REPORT PROCEDURE: MR LE NONJOINT RT WO/W CON TECHNIQUE: Consent was obtained. Multi planar multi sequence MR imaging of the right foot was performed before and after administration of 12 milliliters MultiHance gadolinium. HISTORY: Right foot pain and swelling, concern for osteomyl COMPARISON: Right foot and ankle 08/01/2016 FINDINGS: Soft tissue swelling is present fairly diffusely about the ankle as well as overlying the dorsum of the foot. There is soft tissue enhancement present of the subcutaneous fat as well as ventral more conspicuous than dorsal foot musculature. There is no loculated fluid collection to suggest drainable abscess. There is edema with associated enhancement involving the medial and intermediate cuneiform bones as well as 1st, 2nd, and 3rd metatarsals. Enhancement of the interdigital soft tissues is seen. The plantar fascia is intact. The Achilles tendon is unremarkable inserting normally upon the calcaneus. There is no tear of the anterior or posterior talofibular or deltoid ligaments. There is no tenosynovitis or tear the tibialis anterior, extensor hallucis longus, extensor digitorum longus, tibialis posterior, flexor digitorum longus, or flexor hallucis longus. Small fluid is present within the tendon sheath of the peroneus longus and brevis tendons without definite tenosynovitis. There is no digital tenosynovitis or tendon tear. There is no bursitis. IMPRESSION: Findings concerning for cellulitis, myositis, and osteomyelitis. No drainable abscess at this time.
[2016-08-14] MEDS: LOVENOX SUB-Q SCH (16:33)
[2016-08-14] MEDS: VANCOMYCIN/NS 1 GM/250 ML 1 GM/250 ML BAG IV SCH ×2 (16:33→23:12)
[2016-08-14] MEDS ORDERED: NACL 0.9% 1000 ML 1,000 ML IV SCH (17:00)
[2016-08-14] MEDS ORDERED: LEVEMIR SUB-Q SCH ×2 (22:00)
[2016-08-15] MEDS ORDERED: VANCOMYCIN/NS 1 GM/250 ML 1 GM/250 ML BAG IV SCH (04:00)
[2016-08-15] MEDS: ZOSYN/NS 4.5GM/100ML 4.5 GM/100 ML VIAL IV SCH ×2 (05:50→13:36)
--- NOTE | 2016-08-15 05:56 | Consultation ---
History of Present Illness - Reason for Consult Consult date: 08/15/16 Osteomyelitis Right Foot Requesting physician: STEPHANIE DELACRUZ - History of Present Illness Mr. Capellan is a 30-year-old man with poorly controlled DM1 who presents for evaluation of right foot pain and unresolving swelling for the 3 weeks. He denies inciting trauma and has had no systemic symptoms. He previously complained of left foot swelling and pain for several months last year that was presumptively treated as osteomyelitis. He recently visited the ED for evaluation of left foot swelling and was given a course of Bactrim and Keflex, which he completed. Despite compliance, he has had no resolution of swelling. Plain film imaging of the foot showedosteoarthritic findings. No foreign body or abscess. MRI of the right foot showed soft tissue swelling and bony changes consistent with ostemyelitis. There was no abscess seen. He is prescribed empiric Vancomycin and Zosyn. ID consultation is requested for treatment recommendations. Past History Past Medical History: diabetes (Type 1), other (Multiple Staph infections, hx of MRSA infection) Past Surgical History: No surgical history Social history: no significant social history Family history: diabetes Medications and Allergies Allergies Allergy/AdvReac Type Severity Reaction Status Date / Time codeine Allergy Hives Verified 08/14/16 07:20 morphine Allergy Hives Verified 08/14/16 07:20 ondansetron HCl [From Zofran] Allergy Hives Verified 08/14/16 07:20 acetaminophen [From Lortab] AdvReac Headache Verified 08/14/16 07:20 hydrocodone bitartrate AdvReac Headache Verified 08/14/16 07:20 [From Lortab] Home Medications Medication Instructions Recorded Confirmed Last Taken Type Ferrous Sulfate PO QDAY 06/18/16 Unknown History Insulin Glargine [Lantus VIAL] units SUB-Q HS 06/18/16 Unknown History Levofloxacin [Levaquin TAB] 500 mg PO QDAY #10 tablet 06/19/16 Unknown Rx Cephalexin [Keflex] 500 mg PO Q12HR #14 cap 08/01/16 Unknown Rx Ibuprofen [Motrin] 400 mg PO Q8H PRN #20 tablet 08/01/16 Unknown Rx Sulfamethoxazole/Trimethoprim 1 each PO BID #14 tablet 08/01/16 Unknown Rx [Bactrim DS TAB] Active Meds: Active Medications Acetaminophen (Tylenol) 650 mg PO Q4H PRN PRN Reason: Pain MILD(1-3)/Fever >100.5/MCKEON Bisacodyl (Dulcolax) 10 mg [place] QDAY PRN PRN Reason: Constipation unrelieved by MOM Dextrose (D50w (25gm)) 50 ml IV PRN PRN PRN Reason: Hypoglycemia Enoxaparin Sodium (Lovenox) 40 mg SUB-Q QDAY [facility] Last Admin: 08/14/16 16:33 Dose: Not Given Piperacillin Sod/Tazobactam Sod (Zosyn/Ns 4.5gm/100ml) 4.5 gm in 100 mls @ 200 mls/hr IV Q8HR [facility] PRN Reason: Protocol Last Admin: 08/14/16 22:30 Dose: 200 mls/hr Sodium Chloride (Nacl 0.9% 1000 Ml) 1,000 mls @ 150 mls/hr IV DIRECT [facility] Last Admin: 08/15/16 04:24 Dose: 150 mls/hr Vancomycin HCl (Vancomycin/Ns 1 Gm/250 Ml) 1 gm in 250 mls @ 166.667 mls/hr IV Q12H [facility] Last Admin: 08/15/16 04:24 Dose: 166.667 mls/hr Ibuprofen (Motrin) 400 mg PO Q8H PRN PRN Reason: Pain Insulin Aspart (Novolog) 0 units SUB-Q AC [facility] PRN Reason: Protocol Last Admin: 08/14/16 18:04 Dose: 10 units Insulin Aspart (Novolog) 0 units SUB-Q QHS [facility] PRN Reason: Protocol Last Admin: 08/14/16 22:32 Dose: Not Given Insulin Aspart (Novolog) 10 units SUB-Q AC [facility] Last Admin: 08/14/16 18:04 Dose: 10 units Insulin Detemir (Levemir) 30 units SUB-Q QHS [facility] Last Admin: 08/14/16 22:29 Dose: 30 units Magnesium Hydroxide (Milk Of Magnesia) 30 ml PO Q4H PRN PRN Reason: Constipation Vancomycin HCl (Vancomycin Pharmacy To Dose) 1 each IV PKCONSULT [facility] PRN Reason: Protocol Review of Systems All systems: negative Constitutional: no fever, no chills, no sweats Respiratory: no cough, no hemoptysis, no shortness of breath Gastrointestinal: no abdominal pain, no nausea, no vomiting, no diarrhea Genitourinary Male: no dysuria, no hematuria Musculoskeletal: fractures, arthritis Integumentary: no rash, no pruritis Physical Examination - Constitutional Vitals: Vital Signs Temp Pulse Resp BP Pulse Ox 97.8 F 89 16 114/80 100 08/14/16 23:35 08/14/16 23:35 08/14/16 23:35 08/14/16 23:35 08/14/16 23:35 Temperature -Last 24 Hours Temperature 97.8 F Temperature 98.4 F Temperature 97.5 F General appearance: Present: no acute distress, well-nourished - Neck Neck: Present: supple - Respiratory Respiratory effort: normal Respiratory: bilateral: CTA - Cardiovascular Rhythm: regular Heart Sounds: Present: S1 & S2 - Extremities Extremity abnormal: edema (edema of right foot without skin breakdown or ulceration; there is mild erythema within the webspaces of the 2nd-4th toes and at the bases of the same toes on the dorsal surface, no crepitus or fluctuance, no increased warmth) Results - Labs CBC & Chem 7: 08/15/16 08:26 08/15/16 05:53 Labs: Abnormal lab results 08/14/16 08/14/16 08/14/16 Range/Units 09:31 17:40 22:05 POC Glucose 475 H 392 H 132 H (70-105) Assessment and Plan - Patient Problems (1) Osteomyelitis due to type 1 diabetes mellitus Current Visit: Yes Status: Chronic Plan to address problem: 1. The bony changes seen appear less related to an infectious proces than Charcot arthropathy. 2. Recommend stopping broad antibiotics. 3. A bone biopsy with culture is needed to ideally guide therapy. Checking inflammatory markers. 4. Recommend a 7-day course of oral Fluconazole and topical Ketoconazole for concurrent tinea pedis.
[2016-08-15 07:12] LABS: Basophils % (Auto) 0.7 % (0.0-1.8); Eosinophils % (Auto) 3.3 % (0.0-4.3); Hemoglobin 8.9 gm/dl (11.8-15.2); Mean Corpuscular HGB Conc 33 % (32-34); Mean Corpuscular Hemoglobin 26 pg (28-32); Mean Corpuscular Volume 79 fl (84-94); Platelet Count 251 K/mm3 (140-440); Red Blood Count 3.38 M/mm3 (3.65-5.03); Red Cell Distribution Width 15.5 % (13.2-15.2); White Blood Count 5.3 K/mm3 (4.5-11.0)
[2016-08-15 07:14] LABS: Anion Gap 16 mmol/L; BUN/Creatinine Ratio 17.14; Blood Urea Nitrogen 12 mg/dL (9-20); Calcium 8.2 mg/dL (8.4-10.2); Carbon Dioxide 25 mmol/L (22-30); Chloride 101.7 mmol/L (98-107); Glucose 57 mg/dL (75-100); Potassium 3.7 mmol/L (3.6-5.0); Sodium 139 mmol/L (137-145)
[2016-08-15 07:39] LABS: Hematocrit 28.6 % (35.5-45.6)
[2016-08-15] MEDS ORDERED: LEVEMIR SUB-Q SCH (07:45)
[2016-08-15] MEDS: NOVOLOG SUB-Q SCH ×6 (07:49→20:13)
--- NOTE | 2016-08-15 08:12 | Progress Note ---
Assessment and Plan Assessment and plan: (1) Cellulitis/ osteomylitis of right foot Current Visit: Yes Status: Acute Plan to address problem: confirmed on MRI, ID input appreciated ortho consult for bone biopsy continue abx (2) Hyperglycemic hyperosmolar nonketotic coma improved today, continue insulin (3) Hyponatremia/Dehydration Current Visit: Yes Status: Acute Plan to address problem: pseudohyponatremia due , secondary to hyperglycaemia IV hydration with normal saline Closely monitor electrolytes (4) Anemia sudden drop in hg, repeat level is stable, most likely dilutional mild drop in Hg after IVF, will monitor DVT prophylaxis Current Visit: Yes Status: Acute Plan to address problem: Lovenox History Interval history: continues to have right foot swelling tenderness and erythema, denies any break in skin, no drainage, no foul odor Hospitalist Physical - Physical exam Narrative exam: General appearance: Present: no acute distress, well-nourished - EENT Eyes: Present: PERRL, EOM intact ENT: hearing intact, clear oral mucosa, dentition normal - Neck Neck: Present: supple, normal ROM - Respiratory Respiratory effort: normal - Cardiovascular Heart rate: 93 Rhythm: regular Heart Sounds: Present: S1 & S2 - Extremities Extremities: no ischemia (low), pulses intact (I was not able to palpate right foot DP and PT) Extremity abnormal: edema (right foot sweeling and redness ), tenderness (right foot) Peripheral Pulses: within normal limits - Abdominal General gastrointestinal: Present: soft, non-tender Male genitourinary: Present: deferred - Rectal Rectal Exam: deferred - Integumentary Integumentary: Present: clear, warm, dry, erythema (Right foot ) - Musculoskeletal Musculoskeletal: gait normal, strength equal bilaterally - Psychiatric Psychiatric: appropriate mood/affect, intact judgment & insight - Neurologic Neurologic: CNII-XII intact, moves all extremities - Allied Health Allied health notes reviewed: nursing - Constitutional Vitals: Temp Pulse Resp BP Pulse Ox 97.8 F 89 16 114/80 100 08/14/16 23:35 08/14/16 23:35 08/14/16 23:35 08/14/16 23:35 08/14/16 23:35 General appearance: Present: no acute distress, well-nourished Results - Labs CBC & Chem 7: 08/15/16 08:26 08/15/16 05:53 Labs: Laboratory Last Values WBC 5.3 K/mm3 (4.5-11.0) 08/15/16 05:53 RBC 3.38 M/mm3 (3.65-5.03) L 08/15/16 05:53 Hgb 8.9 gm/dl (11.8-15.2) L 08/15/16 05:53 Hct 28.6 % (35.5-45.6) L 08/15/16 05:53 MCV 79 fl (84-94) L 08/15/16 05:53 MCH 26 pg (28-32) L 08/15/16 05:53 MCHC 33 % (32-34) 08/15/16 05:53 RDW 15.5 % (13.2-15.2) H 08/15/16 05:53 Plt Count 251 K/mm3 (140-440) 08/15/16 05:53 Lymph % (Auto) 36.9 % (13.4-35.0) H 08/15/16 05:53 [place] % (Auto) 6.8 % (0.0-7.3) 08/15/16 05:53 Eos % (Auto) 3.3 % (0.0-4.3) 08/15/16 05:53 Baso % (Auto) 0.7 % (0.0-1.8) 08/15/16 05:53 Lymph # 2.0 K/mm3 (1.2-5.4) 08/15/16 05:53 [place] # 0.4 K/mm3 (0.0-0.8) 08/15/16 05:53 Eos # 0.2 K/mm3 (0.0-0.4) 08/15/16 05:53 Baso # 0.0 K/mm3 (0.0-0.1) 08/15/16 05:53 Seg Neutrophils % 52.3 % (40.0-70.0) 08/15/16 05:53 Seg Neutrophils # 2.8 K/mm3 (1.8-7.7) 08/15/16 05:53 ESR 50 mm/Hr (0-20) 08/14/16 07:19 VBG pH 7.311 (7.320-7.420) L 08/14/16 04:10 Sodium 139 mmol/L (137-145) D 08/15/16 05:53 Potassium 3.7 mmol/L (3.6-5.0) D 08/15/16 05:53 Chloride 101.7 mmol/L (98-107) 08/15/16 05:53 Carbon Dioxide 25 mmol/L (22-30) 08/15/16 05:53 Anion Gap 16 mmol/L 08/15/16 05:53 BUN 12 mg/dL (9-20) 08/15/16 05:53 Creatinine 0.7 mg/dL (0.8-1.5) L 08/15/16 05:53 Estimated GFR > 60 ml/min 08/15/16 05:53 BUN/Creatinine Ratio 17.14 % 08/15/16 05:53 Glucose 57 mg/dL (75-100) L 08/15/16 05:53 POC Glucose 49 (70-105) L 08/15/16 07:18 Calcium 8.2 mg/dL (8.4-10.2) L 08/15/16 05:53 Total Bilirubin 0.30 mg/dL (0.1-1.2) 08/13/16 16:51 AST 30 units/L (5-40) 08/13/16 16:51 ALT 20 units/L (7-56) 08/13/16 16:51 Alkaline Phosphatase 249 units/L (35-129) H 08/13/16 16:51 Total Creatine Kinase 53 units/L (55-170) L 08/14/16 07:19 C-Reactive Protein 2.50 mg/dL (0.00-1.30) H 08/14/16 07:19 Total Protein 7.8 g/dL (6.3-8.2) 08/13/16 16:51 Albumin 3.9 g/dL (3.9-5) 08/13/16 16:51 Albumin/Globulin Ratio 1.0 % 08/13/16 16:51
[2016-08-15 08:49] LABS: Hematocrit 27.9 % (35.5-45.6); Hemoglobin 9.1 gm/dl (11.8-15.2)
[2016-08-15] MEDS: LOVENOX SUB-Q SCH (10:43)
[2016-08-15] MEDS ORDERED: DIFLUCAN PO SCH (15:00)
[2016-08-15 16:55] VITALS: BP 160/97
--- NOTE | 2016-08-15 18:36 | Consultation ---
History of Present Illness - [facility] Consult date: 08/15/16 Consult reason: other History of present illness: 30-year-old man with poorly controlled DM1 who presents for evaluation of right foot pain and unresolving swelling for the 3 weeks. He denies inciting trauma and has had no systemic symptoms. He previously complained of left foot swelling and pain for several months last year that was presumptively treated as osteomyelitis. He recently visited the ED for evaluation of left foot swelling and was given a course of Bactrim and Keflex, which he completed. Despite compliance, he has had no resolution of swelling. Plain film imaging of the foot showedosteoarthritic findings. No foreign body or abscess. MRI of the right foot showed soft tissue swelling and bony changes consistent with ostemyelitis. There was no abscess seen. He is prescribed empiric Vancomycin and Zosyn. Ortho consulted regarding possible osteomyelitis. He denies a history of injury or previous problems with his feet Past History Past Medical History: diabetes (Type 1), other (Multiple Staph infections, hx of MRSA infection) Past Surgical History: No surgical history Social history: no significant social history Family history: diabetes Medications and Allergies Allergies Allergy/AdvReac Type Severity Reaction Status Date / Time codeine Allergy Hives Verified 08/14/16 07:20 morphine Allergy Hives Verified 08/14/16 07:20 ondansetron HCl [From Zofran] Allergy Hives Verified 08/14/16 07:20 acetaminophen [From Lortab] AdvReac Headache Verified 08/14/16 07:20 hydrocodone bitartrate AdvReac Headache Verified 08/14/16 07:20 [From Lortab] Home Medications Medication Instructions Recorded Confirmed Last Taken Type Ferrous Sulfate PO QDAY 06/18/16 Unknown History Insulin Glargine [Lantus VIAL] units SUB-Q HS 06/18/16 Unknown History Levofloxacin [Levaquin TAB] 500 mg PO QDAY #10 tablet 06/19/16 Unknown Rx Cephalexin [Keflex] 500 mg PO Q12HR #14 cap 08/01/16 Unknown Rx Ibuprofen [Motrin] 400 mg PO Q8H PRN #20 tablet 08/01/16 Unknown Rx Sulfamethoxazole/Trimethoprim 1 each PO BID #14 tablet 08/01/16 Unknown Rx [Bactrim DS TAB] Active Meds: Active Medications Acetaminophen (Tylenol) 650 mg PO Q4H PRN PRN Reason: Pain MILD(1-3)/Fever >100.5/MCKEON Bisacodyl (Dulcolax) 10 mg [place] QDAY PRN PRN Reason: Constipation unrelieved by MOM Dextrose (D50w (25gm)) 50 ml IV PRN PRN PRN Reason: Hypoglycemia Last Admin: 08/15/16 07:35 Dose: 50 ml Enoxaparin Sodium (Lovenox) 40 mg SUB-Q QDAY [facility] Last Admin: 08/15/16 10:43 Dose: 40 mg Fluconazole (Diflucan) 200 mg PO QDAY [facility] Ibuprofen (Motrin) 400 mg PO Q8H PRN PRN Reason: Pain Insulin Aspart (Novolog) 0 units SUB-Q AC [facility] PRN Reason: Protocol Last Admin: 08/15/16 18:23 Dose: 8 units Insulin Aspart (Novolog) 0 units SUB-Q QHS [facility] PRN Reason: Protocol Last Admin: 08/14/16 22:32 Dose: Not Given Insulin Aspart (Novolog) 10 units SUB-Q AC [facility] Last Admin: 08/15/16 12:43 Dose: Not Given Insulin Detemir (Levemir) 25 units SUB-Q QHS [facility] Ketoconazole (Nizoral) 1 applic TP BID [facility] Magnesium Hydroxide (Milk Of Magnesia) 30 ml PO Q4H PRN PRN Reason: Constipation Physical Examination - Physical exam Narrative exam: Physical examination we have a well-nourished well-developed male in no obvious distress prevent muscular skeletal exam relates to the left lower extremity. At the left foot he was noted to have swollen nonedematous non-erythematous foot. Sensation to light touch and pinprick diminished he had good active and passive range of motion Plain x-rays of the left foot were examined by me and show a pattern consistent with possible early Charcot foot Assessment and Plan Assessment - chronic swelling of foot rule out Charcot foot Plan and recommendation- patient requires neurological workup with the EMG NCV to rule out neuropathic joint doubt of bone biopsy necessary at this time
[2016-08-15] MEDS ORDERED: NIZORAL TP SCH (22:00)
--- NOTE | 2016-08-17 07:22 | Vascular Lab Report ---
Right Lower Extremity Venous Duplex Study: Reason for Exam: Right cellulitis. Comments on the Right: All veins visualized are freely compressible without evidence of internal echogenicity. Flow is spontaneous and phasic throughout. No evidence of acute or chronic thrombus is seen in any of the vessels visualized. Comments on the Left: A limited duplex study was done of the proximal veins of the left lower extremity. All veins visualized are freely compressible without evidence of internal echogenicity. Flow is spontaneous and phasic throughout. No evidence of acute or chronic thrombus is seen in any of the vessels visualized. Impression: No evidence of acute or chronic deep venous thrombosis in the right lower extremity.
== END 2016-08-15 22:00 | disposition left against medical advice (07) | DRG 602 ==
LOC: ED 15:28 → 3A 08-14 08:14
PROVIDERS: ADMIT Internal Medicine; ATTEND Internal Medicine
DX: L03.115 Cellulitis of right lower limb (principal); E10.10 Type 1 diabetes mellitus with ketoacidosis without coma; M86.671 Other chronic osteomyelitis, right ankle and foot; E87.1 Hypo-osmolality and hyponatremia; E10.69 Type 1 diabetes mellitus with other specified complication; E10.65 Type 1 diabetes mellitus with hyperglycemia; E86.0 Dehydration; D64.9 Anemia, unspecified; Z88.8 Allergy status to other drugs, medicaments and biological substances; Z88.6 Allergy status to analgesic agent; Z83.3 Family history of diabetes mellitus
CPT/HCPCS: 36415; 80048; 80053; 82550; 82805; 82962; 85014; 85018; 85025; 85652; 86140; 96361; 96374; 96375; A9577; J1650; J1815; J1818; J2405; J2543; J3370; J7030

== ENCOUNTER 2016-10-02 18:36 | Inpatient (IN) | payer SELFPAY ==
[2016-10-02] MEDS ORDERED: TYLENOL PO ONE (21:53)
[2016-10-02] MEDS ORDERED: TYLENOL ONE (21:54)
[2016-10-02 22:17] LABS: Basophils % (Auto) 0.6 % (0.0-1.8); Eosinophils % (Auto) 0.7 % (0.0-4.3); Hematocrit 35.9 % (35.5-45.6); Hemoglobin 11.7 gm/dl (11.8-15.2); Mean Corpuscular HGB Conc 33 % (32-34); Mean Corpuscular Hemoglobin 27 pg (28-32); Mean Corpuscular Volume 82 fl (84-94); Platelet Count 352 K/mm3 (140-440); Red Blood Count 4.39 M/mm3 (3.65-5.03); Red Cell Distribution Width 15.6 % (13.2-15.2); White Blood Count 9.8 K/mm3 (4.5-11.0)
[2016-10-02 22:43] LABS: Ketones Negative (Negative)
[2016-10-02 22:53] LABS: Anion Gap 29 mmol/L; Blood Urea Nitrogen 18 mg/dL (9-20); Carbon Dioxide 18 mmol/L (22-30); Glucose 136 mg/dL (75-100); Potassium 3.8 mmol/L (3.6-5.0); Sodium 132 mmol/L (137-145)
[2016-10-03 01:06] LABS: Bilirubin,Urine NEG (Negative); Blood,Urine SM (Negative); Granular Casts,Urine 33 /LPF; Ketones,Urine 80 mg/dL (Negative); Leukocyte Esterase,Urine NEG (Negative); Mucus,Urine FEW /HPF; Nitrite,Urine NEG (Negative); Urobilinogen,Urine < 2.0 mg/dL (<2.0)
[2016-10-03] MEDS ORDERED: VANCOMYCIN/NS 1 GM/250 ML 1 GM/250 ML BAG IV ONE (06:06)
[2016-10-03] MEDS ORDERED: NACL 0.9% 1000 ML 1,000 ML IV ONE (06:12)
--- NOTE | 2016-10-03 06:12 | Emergency Department Report ---
- General Chief complaint: Wound/Laceration Stated complaint: HIGH BLOOD SUGAR/WOUNDS ON BACK Time Seen by Provider: 10/03/16 05:57 Source: patient Mode of arrival: Ambulatory Limitations: No Limitations - History of Present Illness Initial comments: 30-year-old male with poorly controlled diabetes here with complaint of pain in the back and shoulders for the last several days. Patient has multiple skin lesions consistent with likely MRSA. He's had these before. Denies fevers chills. States his blood sugars been out of control in the 300s. MD complaint: rash -: Gradual Location: back Severity: moderate Quality: aching Consistency: constant Improves with: none Worsens with: none Associated symptoms: denies other symptoms - Related Data Home Medications Medication Instructions Recorded Confirmed Last Taken Ferrous Sulfate PO QDAY 06/18/16 Unknown Insulin Glargine [Lantus VIAL] units SUB-Q HS 06/18/16 Unknown Previous Rx's Medication Instructions Recorded Last Taken Type Levofloxacin [Levaquin TAB] 500 mg PO QDAY #10 tablet 06/19/16 Unknown Rx Cephalexin [Keflex] 500 mg PO Q12HR #14 cap 08/01/16 Unknown Rx Ibuprofen [Motrin] 400 mg PO Q8H PRN #20 tablet 08/01/16 Unknown Rx Sulfamethoxazole/Trimethoprim 1 each PO BID #14 tablet 08/01/16 Unknown Rx [Bactrim DS TAB] Allergies Allergy/AdvReac Type Severity Reaction Status Date / Time codeine Allergy Hives Verified 08/14/16 07:20 morphine Allergy Hives Verified 08/14/16 07:20 ondansetron HCl [From Zofran] Allergy Hives Verified 08/14/16 07:20 acetaminophen [From Lortab] AdvReac Headache Verified 08/14/16 07:20 hydrocodone bitartrate AdvReac Headache Verified 08/14/16 07:20 [From Lortab] Abscess Boil HPI - HPI Chief Complaint: Wound/Laceration Stated Complaint: HIGH BLOOD SUGAR/WOUNDS ON BACK Time Seen by Provider: 10/03/16 05:57 Home Medications: Home Medications Medication Instructions Recorded Confirmed Last Taken Ferrous Sulfate PO QDAY 06/18/16 Unknown Insulin Glargine [Lantus VIAL] units SUB-Q HS 06/18/16 Unknown Previous Rx's Medication Instructions Recorded Last Taken Type Levofloxacin [Levaquin TAB] 500 mg PO QDAY #10 tablet 06/19/16 Unknown Rx Cephalexin [Keflex] 500 mg PO Q12HR #14 cap 08/01/16 Unknown Rx Ibuprofen [Motrin] 400 mg PO Q8H PRN #20 tablet 08/01/16 Unknown Rx Sulfamethoxazole/Trimethoprim 1 each PO BID #14 tablet 08/01/16 Unknown Rx [Bactrim DS TAB] Allergies/Adverse Reactions: Allergies Allergy/AdvReac Type Severity Reaction Status Date / Time codeine Allergy Hives Verified 08/14/16 07:20 morphine Allergy Hives Verified 08/14/16 07:20 ondansetron HCl [From Zofran] Allergy Hives Verified 08/14/16 07:20 acetaminophen [From Lortab] AdvReac Headache Verified 08/14/16 07:20 hydrocodone bitartrate AdvReac Headache Verified 08/14/16 07:20 [From Lortab] ED Review of Systems ROS: Stated complaint: HIGH BLOOD SUGAR/WOUNDS ON BACK Other details as noted in HPI Comment: All other systems reviewed and negative Constitutional: denies: chills, fever Eyes: denies: eye pain, eye discharge, vision change ENT: denies: ear pain, throat pain Respiratory: denies: cough, shortness of breath, wheezing Cardiovascular: denies: chest pain, palpitations Endocrine: no symptoms reported, increased thirst Gastrointestinal: denies: abdominal pain, nausea, diarrhea Genitourinary: denies: urgency, dysuria Musculoskeletal: back pain. denies: joint swelling, arthralgia Skin: rash, lesions Neurological: denies: headache, weakness, paresthesias Psychiatric: denies: anxiety, depression Hematological/Lymphatic: denies: easy bleeding, easy bruising ED Past Medical Hx - Past Medical History Previous Medical History?: Yes Hx Congestive Heart Failure: No Hx Diabetes: Yes (IDDM) Hx Asthma: No Hx COPD: No Additional medical history: staph infection - Surgical History Past Surgical History?: Yes Additional Surgical History: wound debridement (staph infection)--NECK AND BACK - Family History Family history: no significant - Social History Smoking Status: Never Smoker Substance Use Type: None - Medications Home Medications: Home Medications Medication Instructions Recorded Confirmed Last Taken Type Ferrous Sulfate PO QDAY 06/18/16 Unknown History Insulin Glargine [Lantus VIAL] units SUB-Q HS 06/18/16 Unknown History Levofloxacin [Levaquin TAB] 500 mg PO QDAY #10 tablet 06/19/16 Unknown Rx Cephalexin [Keflex] 500 mg PO Q12HR #14 cap 08/01/16 Unknown Rx Ibuprofen [Motrin] 400 mg PO Q8H PRN #20 tablet 08/01/16 Unknown Rx Sulfamethoxazole/Trimethoprim 1 each PO BID #14 tablet 08/01/16 Unknown Rx [Bactrim DS TAB] ED Physical Exam - General Limitations: No Limitations General appearance: alert, in no apparent distress, other (thin appearing) - Head Head exam: Present: atraumatic, normocephalic - Eye Eye exam: Present: normal appearance. Absent: scleral icterus - ENT ENT exam: Present: mucous membranes moist - Neck Neck exam: Present: normal inspection. Absent: lymphadenopathy - Respiratory Respiratory exam: Present: normal lung sounds bilaterally. Absent: respiratory distress - Cardiovascular Cardiovascular Exam: Present: regular rate, normal rhythm. Absent: systolic murmur, diastolic murmur, rubs, gallop - GI/Abdominal GI/Abdominal exam: Present: soft, normal bowel sounds - Rectal Rectal exam: Present: deferred - Extremities Exam Extremities exam: Present: normal inspection - Back Exam Back exam: Present: normal inspection, rash noted (multiple areas of erythema with a chronic Center), other - Neurological Exam Neurological exam: Present: alert, oriented X3 - Psychiatric Psychiatric exam: Present: normal affect, normal mood - Skin Skin exam: Present: warm, dry, intact, normal color. Absent: rash ED Course Vital Signs 10/02/16 10/03/16 10/03/16 21:43 06:05 06:10 Temperature 98.6 F Pulse Rate 132 H 135 H Respiratory 24 16 Rate Blood Pressure 109/74 126/70 Blood Pressure [Right] O2 Sat by Pulse 98 98 97 Oximetry 10/03/16 10/03/16 10/03/16 06:12 06:20 06:30 Temperature Pulse Rate 132 H 133 H 127 H Respiratory 18 18 14 Rate Blood Pressure 126/70 119/76 Blood Pressure 126/70 [Right] O2 Sat by Pulse 99 97 96 Oximetry 10/03/16 10/03/16 10/03/16 06:40 06:50 06:58 Temperature Pulse Rate 125 H 125 H Respiratory 18 16 18 Rate Blood Pressure 119/76 113/73 Blood Pressure [Right] O2 Sat by Pulse 97 95 99 Oximetry ED Medical Decision Making - Lab Data Result diagrams: 10/02/16 22:06 10/02/16 22:06 Laboratory Results - last 24 hr 10/02/16 10/02/16 10/02/16 21:33 22:06 22:06 WBC 9.8 RBC 4.39 Hgb 11.7 L Hct 35.9 MCV 82 L MCH 27 L MCHC 33 RDW 15.6 H Plt Count 352 Lymph % (Auto) 13.1 L [place] % (Auto) 10.2 H Eos % (Auto) 0.7 Baso % (Auto) 0.6 Lymph # 1.3 [place] # 1.0 H Eos # 0.1 Baso # 0.1 Seg Neutrophils % 75.4 H Seg Neutrophils # 7.4 Sodium 132 L Potassium 3.8 Chloride 89.0 L Carbon Dioxide 18 L Anion Gap 29 BUN 18 Creatinine 1.2 Estimated GFR > 60 BUN/Creatinine Ratio 15.00 Glucose 136 H POC Glucose 143 H Ketones Quantitative Negative Calcium 10.0 Urine Color Urine Turbidity Urine pH Ur Specific [place] Urine Protein Urine Glucose (UA) Urine Ketones Urine Blood Urine Nitrite Urine Bilirubin Urine Urobilinogen Ur Leukocyte Esterase Urine WBC (Auto) Urine RBC (Auto) Hyaline Casts Granular Casts Urine Mucus 10/03/16 00:12 WBC RBC Hgb Hct MCV MCH MCHC RDW Plt Count Lymph % (Auto) [place] % (Auto) Eos % (Auto) Baso % (Auto) Lymph # [place] # Eos # Baso # Seg Neutrophils % Seg Neutrophils # Sodium Potassium Chloride Carbon Dioxide Anion Gap BUN Creatinine Estimated GFR BUN/Creatinine Ratio Glucose POC Glucose Ketones Quantitative Calcium Urine Color Yellow Urine Turbidity Clear Urine pH 6.0 Ur Specific [place] 1.024 Urine Protein 30 mg/dl Urine Glucose (UA) >=500 Urine Ketones 80 Urine Blood Sm Urine Nitrite Neg Urine Bilirubin Neg Urine Urobilinogen < 2.0 Ur Leukocyte Esterase Neg Urine WBC (Auto) 2.0 Urine RBC (Auto) 3.0 Hyaline Casts 24 Granular Casts 33 Urine Mucus Few - Medical Decision Making Patient is a 30-year-old male with a controlled diabetes and multiple skin lesions here with likely MRSA infection to the back. His blood sugar slightly elevated and he has normal white count. He does have significant anion gap. Plan hydrate aggressively treated with vancomycin and anticipated admission. Discussed with hospitalist and plan to admit the patient. Portions of this chart were dictated with dictation software. There may be dictation errors contained within this note. Critical care attestation.: If time is entered above; I have spent that time in minutes in the direct care of this critically ill patient, excluding procedure time. ED Disposition Clinical Impression: Abscess, DKA (diabetic ketoacidosis) Disposition: OP ADMIT IP TO THIS HOSP Is pt being admited?: Yes Condition: Undetermined Instructions: Diabetes Mellitus Type 2 in Adults (ED) Referrals: PRIMARY CARE, [Primary Care Provider] - 3-5 Days
[2016-10-03] MEDS ORDERED: MORPHINE IV ONE ×2 (08:19→16:45)
[2016-10-03] MEDS ORDERED: BENADRYL ONE ×2 (08:25→16:29)
[2016-10-03] MEDS ORDERED: BENADRYL IV ONE ×2 (08:27→16:45)
[2016-10-03] MEDS: NACL 0.9% 1000 ML 1,000 ML IV SCH (08:34)
[2016-10-03] MEDS ORDERED: D50W (25GM) Syringe IV PRN (09:22)
[2016-10-03 09:41] LABS: ISTAT Base Excess -13; ISTAT DEVICE 0; ISTAT HCO3 12.9; ISTAT PCO2 24.5 (35-45); ISTAT PO2 121 (80-105); ISTAT SO2 99; ISTAT TCO2 14
[2016-10-03 09:43] LABS: Anion Gap 29 mmol/L; Blood Urea Nitrogen 21 mg/dL (9-20); Calcium 8.1 mg/dL (8.4-10.2); Carbon Dioxide 14 mmol/L (22-30); Chloride 92.3 mmol/L (98-107); Glucose 426 mg/dL (75-100); Magnesium 1.7 mg/dL (1.7-2.3); Sodium 131 mmol/L (137-145)
[2016-10-03 09:46] LABS: Potassium 4.6 mmol/L (3.6-5.0)
[2016-10-03] MEDS ORDERED: NACL 0.9% 1000 ML 1,000 ML ONE (10:54)
[2016-10-03] MEDS: NovoLIN R 100 UNITS in NACL 0.9% 99 ML IV SCH ×4 (11:13→22:07)
[2016-10-03] MEDS ORDERED: D5/0.45NS 1,000 ML IV ONE (11:28)
[2016-10-03] MEDS ORDERED: D5NS 0.2% 1,000 ML IV SCH (12:00)
[2016-10-03 12:06] LABS: Anion Gap 26 mmol/L; BUN/Creatinine Ratio 14.16; Blood Urea Nitrogen 17 mg/dL (9-20); Calcium 7.9 mg/dL (8.4-10.2); Carbon Dioxide 14 mmol/L (22-30); Chloride 98.3 mmol/L (98-107); Glucose 240 mg/dL (75-100); Potassium 3.7 mmol/L (3.6-5.0); Sodium 135 mmol/L (137-145)
[2016-10-03] MEDS ORDERED: D5W/0.45% NACL/KCL 20 MEQ 20 MEQ/1,000 ML BAG IV ONE ×2 (12:28→20:46)
[2016-10-03] MEDS ORDERED: KCL 20 MEQ in D5NS 0.2% 1,000 ML IV SCH (12:30)
[2016-10-03] MEDS ORDERED: D5/0.45NS 1,000 ML IV SCH (13:00)
--- NOTE | 2016-10-03 14:26 | History and Physical Report ---
History of Present Illness Date of examination: 10/03/16 Date of admission: 10/03/16 07:46 History of present illness: This is a 30 y/o male with h/o DM type 1 presented with complaint of pain in the back and shoulders for the last several days. Patient has multiple skin lesions consistent with likely MRSA. He's simillar episodes before. Denies fevers chills but had low grade temp during admission. he also states that his blood sugars been out of control running at the 300s. On reassessment in the ER patient's blood sugar was elevated at 430. He has moderate ketones in his serum with high anion gap. He was started on an insulin drip, and getting admitted to ICU for further evaluation and management. Past History Past Medical History: diabetes (Type 1), other (Multiple Staph infections, hx of MRSA infection) Past Surgical History: No surgical history Social history: no significant social history Family history: diabetes Review of System: Constitutional: no fever, no chills, no weight loss Ears, eyes, nose, mouth and throat: no nasal congestion, no nasal discharge, no sinus pressure, no vision change, no red eye. Neck: No neck pain or rigidity. Cardiovascular: No chest pain, no orthopnea, no palpitations, no leg swelling Respiratory: No shortness of breath, no cough, no congestion, no wheezing Gastrointestinal: no abdominal pain, no nausea, no vomiting Genitourinary : no dysuria, no hematuria Musculoskeletal: no joint swelling, + muscle ache Integumentary: no rash, + pruritis, + multiple skin lesion on back Neurological: no parathesias, no numbness, no tingling Endocrine: no cold or heat intolerance, no polyuria or polydipsia Hematologic/Lymphatic: no easy bruising, no easy bleeding, no gland swelling Allergic/Immunologic: no urticaria, no angioedema. Medications and Allergies Allergies Allergy/AdvReac Type Severity Reaction Status Date / Time codeine Allergy Hives Verified 08/14/16 07:20 ondansetron HCl [From Zofran] Allergy Hives Verified 08/14/16 07:20 hydrocodone bitartrate AdvReac Headache Verified 08/14/16 07:20 [From Lortab] Home Medications Medication Instructions Recorded Confirmed Last Taken Type Insulin Glargine [Lantus VIAL] 15 units SUB-Q HS 06/18/16 10/03/16 Unknown History Insulin Regular, Human [HumuLIN R] 0 unit SQ ACHS 10/03/16 10/03/16 Unknown History Active Meds: Active Medications Dextrose (D50w (25gm)) 0 ml IV ONCE PRN PRN Reason: Hypoglycemia Sodium Chloride (Nacl 0.9% 1000 Ml) 1,000 mls @ 100 mls/hr IV DIRECT SHARATH Last Admin: 10/03/16 08:34 Dose: 100 mls/hr Insulin Human Regular 100 (units/ Sodium Chloride) 100 mls @ 1 mls/hr IV TITR SHARATH; 1 UNITS/HR PRN Reason: Protocol Last Titration: 10/03/16 13:42 Dose: 5 units/hr, 5 mls/hr Exam - Physical Exam Narrative exam: GENERAL: This is a frail WM lying on bed appeared to be in no discomfort. HEENT: Normocephalic. Atraumatic. Extraocular motions are intact. No conjunctival congestion or icterus. Patient has moist mucous membranes. External auditory canal and nares patent bilaterally. NECK: Supple. Trachea midline. No JVD, thyromagaly or lymphadenopathy. CHEST/LUNGS: Clear to auscultated bilaterally. There is no respiratory distress noted, breathing nonlabored. No wheezes crackles or rhonchi. HEART/CARDIOVASCULAR: Regular in rate and rhythm. PMI at the apex. There is no gallop rub or murmur. ABDOMEN: Abdomen is soft, nontender. Patient has normal bowel sounds. There is no abdominal distention. No organomagaly or rigidity. SKIN: There is no rash, no erythrema. There is no diaphoresis. Warm and dry. Multiple pustules on the back, with severe tenderness, erythrematous, indurated with centers covered with crust. NEUROLOGY: The patient is awake, alert, and oriented. The patient is cooperative. The patient has normal speech. No focal motor deficit. MUSCULOSKELETAL: No joint effusion or tenderness. Muscle strength equal bilaterally. No muscle wasting. EXTRIMITY: No edema, cyanosis or clubbing. PSYCH: No depression or anxiety noted. Cooperative. - Constitutional Vitals: Temp Pulse Resp BP Pulse Ox 98.6 F 122 H 16 92/55 99 10/02/16 21:43 10/03/16 13:44 10/03/16 13:44 10/03/16 13:00 10/03/16 13:44 Results - Labs CBC & Chem 7: 10/02/16 22:06 10/04/16 07:59 Labs: Abnormal lab results 10/03/16 10/03/16 10/03/16 Range/Units 07:54 09:19 09:36 POC ABG pH 7.330 L (7.35-7.45) POC ABG pCO2 24.5 L (35-45) POC ABG pO2 121 H (80-105) Sodium 131 L (137-145) mmol/L Chloride 92.3 L (98-107) mmol/L Carbon Dioxide 14 L (22-30) mmol/L BUN 21 H (9-20) mg/dL Glucose 426 H (75-100) mg/dL POC Glucose 466 H (70-105) Calcium 8.1 L D (8.4-10.2) mg/dL 10/03/16 10/03/16 10/03/16 Range/Units 10:52 11:36 12:13 POC ABG pH (7.35-7.45) POC ABG pCO2 (35-45) POC ABG pO2 (80-105) Sodium 135 L (137-145) mmol/L Chloride (98-107) mmol/L Carbon Dioxide 14 L (22-30) mmol/L BUN (9-20) mg/dL Glucose 240 H (75-100) mg/dL POC Glucose 276 H 218 H (70-105) Calcium 7.9 L (8.4-10.2) mg/dL 10/03/16 Range/Units 13:39 POC ABG pH (7.35-7.45) POC ABG pCO2 (35-45) POC ABG pO2 (80-105) Sodium (137-145) mmol/L Chloride (98-107) mmol/L Carbon Dioxide (22-30) mmol/L BUN (9-20) mg/dL Glucose (75-100) mg/dL POC Glucose 244 H (70-105) Calcium (8.4-10.2) mg/dL Assessment and Plan DKA - place on DKA protocol with insulin drip - finger stick q1h Hyponatremia - likely from DKA - cont to monitor BMP and cont iv fluid Severe protein calorie malnutrition, likely - has generalized muscle wasting clinically - NPO for now as he in DKA - nutrition consult - check albumin, prealbumin Skin infection with sepsis - pt had low grade temp with tachycardia - has h/o MRSA infection before - will place on vancomycin, wound care consult and wound cx DVT Px - lovenox The high probability of a clinically significant, sudden or life threatening deterioration of the system(s) required my full and direct attention, intervention and personal management. The aggregate critical care time was [42] minutes. This time is in addition to time spent performing reported procedures but includes the following: [x] Data Review and interpretation [x] Patient assessment and monitoring of vital signs [x] Documentation [x] Medication orders and management
[2016-10-03 14:50] LABS: Anion Gap 24 mmol/L; BUN/Creatinine Ratio 16.66; Blood Urea Nitrogen 15 mg/dL (9-20); Calcium 8.2 mg/dL (8.4-10.2); Carbon Dioxide 16 mmol/L (22-30); Chloride 96.2 mmol/L (98-107); Glucose 263 mg/dL (75-100); Potassium 4.2 mmol/L (3.6-5.0); Sodium 132 mmol/L (137-145)
[2016-10-03] MEDS ORDERED: VANCOMYCIN/NS 1 GM/250 ML 1 GM/250 ML BAG IV SCH (15:00)
[2016-10-03] MEDS ORDERED: TYLENOL ONE (16:29)
[2016-10-03] MEDS ORDERED: MORPHINE ONE (16:29)
[2016-10-03] MEDS ORDERED: TYLENOL PO ONE (16:57)
[2016-10-03 17:34] LABS: Anion Gap 23 mmol/L; BUN/Creatinine Ratio 16.25; Blood Urea Nitrogen 13 mg/dL (9-20); Carbon Dioxide 15 mmol/L (22-30); Chloride 96.1 mmol/L (98-107); Glucose 243 mg/dL (75-100); Potassium 4.1 mmol/L (3.6-5.0); Sodium 130 mmol/L (137-145)
[2016-10-03] MEDS: VANCOMYCIN 750 MG in NACL 0.9% 250ML 250 ML IV SCH (20:00)
[2016-10-03] MEDS ORDERED: D5W/0.45% NACL/KCL 20 MEQ 20 MEQ/1,000 ML BAG IV SCH (21:00)
[2016-10-04] MEDS ORDERED: MORPHINE ONE ×2 (01:55→09:11)
[2016-10-04] MEDS ORDERED: MORPHINE IV ONE (02:01)
[2016-10-04] MEDS ORDERED: NACL 0.9% 1000 ML 1,000 ML IV ONE (04:55)
[2016-10-04 06:33] LABS: BUN/Creatinine Ratio 8.75; Blood Urea Nitrogen 7 mg/dL (9-20); Calcium 7.4 mg/dL (8.4-10.2); Carbon Dioxide 15 mmol/L (22-30); Glucose 200 mg/dL (75-100)
[2016-10-04] MEDS: VANCOMYCIN 750 MG in NACL 0.9% 250ML 250 ML IV SCH ×2 (06:33→17:35)
[2016-10-04 06:34] LABS: Anion Gap 19 mmol/L; Potassium 3.8 mmol/L (3.6-5.0); Sodium 127 mmol/L (137-145)
[2016-10-04 08:20] LABS: Anion Gap 18 mmol/L; BUN/Creatinine Ratio 8.57; Blood Urea Nitrogen 6 mg/dL (9-20); Calcium 7.5 mg/dL (8.4-10.2); Carbon Dioxide 18 mmol/L (22-30); Chloride 96.2 mmol/L (98-107); Glucose 152 mg/dL (75-100); Potassium 3.9 mmol/L (3.6-5.0); Sodium 128 mmol/L (137-145)
[2016-10-04 08:33] LABS: Albumin 2.6 g/dL (3.9-5); Prealbumin 0.05 g/L (0.200-0.400)
[2016-10-04] MEDS ORDERED: BENADRYL PO PRN (09:00)
[2016-10-04] MEDS ORDERED: NACL 0.9% 1000 ML 1,000 ML IV SCH (09:00)
[2016-10-04] MEDS ORDERED: BENADRYL PO ONE (09:12)
[2016-10-04] MEDS: MORPHINE IV PRN ×2 (09:26→14:56)
[2016-10-04] MEDS: NACL 0.9% 1000 ML 1,000 ML IV SCH (09:26)
--- NOTE | 2016-10-04 12:31 | Progress Note ---
Assessment and Plan DKA, resolved - placed on DKA protocol with insulin drip on admission - place on ada diet, subqu insulin - Finger stick qACHS Hyponatremia - likely from DKA, improved - cont to monitor BMP and cont iv fluid Severe protein calorie malnutrition, POA - has generalized muscle wasting clinically - was NPO as he in DKA, now on ADA diet - nutrition consult - low albumin and prealbumin Skin infection with sepsis - pt had low grade temp with tachycardia on admission - has h/o MRSA infection before - will cont on vancomycin, wound care consult and wound cx - will follow blood cx DVT Px - lovenox Subjective Date of service: 10/04/16 Interval history: Pt seen and examined skin lesion on rt shoulder is most painful states that he feels little better, tolerated ADA diet Objective - Exam Narrative Exam: GENERAL: This is a frail WM lying on bed appeared to be in no discomfort. HEENT: Normocephalic. Atraumatic. Extraocular motions are intact. No conjunctival congestion or icterus. Patient has moist mucous membranes. External auditory canal and nares patent bilaterally. NECK: Supple. Trachea midline. No JVD, thyromagaly or lymphadenopathy. CHEST/LUNGS: Clear to auscultated bilaterally. There is no respiratory distress noted, breathing nonlabored. No wheezes crackles or rhonchi. HEART/CARDIOVASCULAR: Regular in rate and rhythm. PMI at the apex. There is no gallop rub or murmur. ABDOMEN: Abdomen is soft, nontender. Patient has normal bowel sounds. There is no abdominal distention. No organomagaly or rigidity. SKIN: There is no rash, no erythrema. There is no diaphoresis. Warm and dry. Multiple pustules on the back, with severe tenderness, erythrematous, indurated with centers covered with crust. NEUROLOGY: The patient is awake, alert, and oriented. The patient is cooperative. The patient has normal speech. No focal motor deficit. MUSCULOSKELETAL: No joint effusion or tenderness. Muscle strength equal bilaterally. No muscle wasting. EXTRIMITY: No edema, cyanosis or clubbing. PSYCH: No depression or anxiety noted. Cooperative. - Constitutional Vitals: Vital Signs - 12hr 10/04/16 10/04/16 10/04/16 00:36 00:40 00:46 Pulse Rate 134 H 135 H 133 H Respiratory 15 17 18 Rate Blood Pressure 118/69 118/69 118/69 O2 Sat by Pulse 93 92 94 Oximetry 10/04/16 10/04/16 10/04/16 00:50 00:56 01:00 Pulse Rate 133 H 135 H 138 H Respiratory 13 17 17 Rate Blood Pressure 118/69 118/69 107/70 O2 Sat by Pulse 97 87 91 Oximetry 10/04/16 10/04/16 10/04/16 01:06 01:10 01:16 Pulse Rate 135 H 134 H 133 H Respiratory 18 22 18 Rate Blood Pressure 107/70 118/69 118/69 O2 Sat by Pulse 94 91 94 Oximetry 10/04/16 10/04/16 10/04/16 01:20 01:26 01:30 Pulse Rate 135 H 134 H 134 H Respiratory 19 14 16 Rate Blood Pressure 118/69 118/69 118/69 O2 Sat by Pulse 95 95 94 Oximetry 10/04/16 10/04/16 10/04/16 01:36 01:40 01:46 Pulse Rate 141 H 134 H 133 H Respiratory 17 18 19 Rate Blood Pressure 118/69 107/70 107/70 O2 Sat by Pulse 93 94 95 Oximetry 10/04/16 10/04/16 10/04/16 01:50 01:56 02:00 Pulse Rate 133 H 129 H 126 H Respiratory 17 15 18 Rate Blood Pressure 107/70 107/70 107/70 O2 Sat by Pulse 96 96 93 Oximetry 10/04/16 10/04/16 10/04/16 02:06 02:10 02:16 Pulse Rate 128 H 133 H 129 H Respiratory 18 18 20 Rate Blood Pressure 115/72 115/72 115/72 O2 Sat by Pulse 96 96 98 Oximetry 10/04/16 10/04/16 10/04/16 02:20 02:26 02:30 Pulse Rate 128 H 129 H 128 H Respiratory 21 21 20 Rate Blood Pressure 115/72 115/72 115/72 O2 Sat by Pulse 98 97 98 Oximetry 10/04/16 10/04/16 10/04/16 02:36 02:40 02:46 Pulse Rate 137 H 131 H 139 H Respiratory 24 17 22 Rate Blood Pressure 115/72 115/72 115/72 O2 Sat by Pulse 98 98 98 Oximetry 10/04/16 10/04/16 10/04/16 02:50 02:56 03:00 Pulse Rate 132 H 131 H 125 H Respiratory 13 18 22 Rate Blood Pressure 115/72 115/72 115/72 O2 Sat by Pulse 98 99 98 Oximetry 10/04/16 10/04/16 10/04/16 03:06 03:10 03:16 Pulse Rate 123 H 122 H 121 H Respiratory 21 22 22 Rate Blood Pressure 115/72 115/72 115/72 O2 Sat by Pulse 99 99 98 Oximetry 10/04/16 10/04/16 10/04/16 03:20 03:26 03:30 Pulse Rate 121 H 121 H 121 H Respiratory 22 22 22 Rate Blood Pressure 115/72 115/72 115/72 O2 Sat by Pulse 97 96 97 Oximetry 10/04/16 10/04/16 10/04/16 03:36 03:40 03:46 Pulse Rate 123 H 121 H 126 H Respiratory 17 20 19 Rate Blood Pressure 115/72 115/72 115/72 O2 Sat by Pulse 98 97 97 Oximetry 10/04/16 10/04/16 10/04/16 03:50 03:56 04:00 Pulse Rate 122 H 121 H 121 H Respiratory 19 19 18 Rate Blood Pressure 115/72 115/72 115/72 O2 Sat by Pulse 97 97 98 Oximetry 10/04/16 10/04/16 10/04/16 04:06 04:10 04:16 Pulse Rate 127 H 129 H 128 H Respiratory 20 18 22 Rate Blood Pressure 115/72 115/72 115/72 O2 Sat by Pulse 98 98 98 Oximetry 10/04/16 10/04/16 10/04/16 04:20 04:26 04:30 Pulse Rate 128 H 123 H 123 H Respiratory 15 17 17 Rate Blood Pressure 115/72 115/72 115/72 O2 Sat by Pulse 98 98 98 Oximetry 10/04/16 10/04/16 10/04/16 04:36 04:40 04:46 Pulse Rate 123 H 128 H 130 H Respiratory 19 15 16 Rate Blood Pressure 106/62 106/62 106/62 O2 Sat by Pulse 98 97 97 Oximetry 10/04/16 10/04/16 10/04/16 04:50 04:56 05:00 Pulse Rate 130 H 132 H 130 H Respiratory 15 18 15 Rate Blood Pressure 106/62 106/62 94/50 O2 Sat by Pulse 94 95 93 Oximetry 10/04/16 10/04/16 10/04/16 05:06 05:10 05:16 Pulse Rate 126 H 123 H 123 H Respiratory 15 17 18 Rate Blood Pressure 94/50 94/50 94/50 O2 Sat by Pulse 95 95 94 Oximetry 10/04/16 10/04/16 10/04/16 05:20 05:26 05:30 Pulse Rate 123 H 123 H 123 H Respiratory 16 17 15 Rate Blood Pressure 94/50 94/50 94/50 O2 Sat by Pulse 96 96 97 Oximetry 10/04/16 10/04/16 10/04/16 05:36 05:40 05:46 Pulse Rate 121 H 120 H 129 H Respiratory 16 16 16 Rate Blood Pressure 94/50 94/50 94/50 O2 Sat by Pulse 97 97 97 Oximetry 10/04/16 10/04/16 10/04/16 05:50 05:56 06:00 Pulse Rate 128 H 127 H 127 H Respiratory 16 14 19 Rate Blood Pressure 94/50 94/50 118/73 O2 Sat by Pulse 98 97 94 Oximetry 10/04/16 10/04/16 10/04/16 06:06 06:10 06:16 Pulse Rate 125 H 125 H 122 H Respiratory 18 16 20 Rate Blood Pressure 118/73 118/73 118/73 O2 Sat by Pulse 96 95 95 Oximetry 10/04/16 10/04/16 10/04/16 06:20 06:26 06:30 Pulse Rate 122 H 123 H 122 H Respiratory 18 17 16 Rate Blood Pressure 118/73 118/73 118/73 O2 Sat by Pulse 95 94 97 Oximetry - Labs CBC & Chem 7: 10/02/16 22:06 10/04/16 07:59 Labs: Abnormal lab results 10/03/16 10/03/16 10/03/16 Range/Units 13:39 14:20 14:44 Sodium 132 L (137-145) mmol/L Chloride 96.2 L (98-107) mmol/L Carbon Dioxide 16 L (22-30) mmol/L BUN (9-20) mg/dL Creatinine (0.8-1.5) mg/dL Glucose 263 H (75-100) mg/dL POC Glucose 244 H 242 H (70-105) Calcium 8.2 L (8.4-10.2) mg/dL Albumin (3.9-5) g/dL Prealbumin (0.200-0.400) g/L 10/03/16 10/03/16 10/03/16 Range/Units 15:54 17:01 17:16 Sodium 130 L (137-145) mmol/L Chloride 96.1 L (98-107) mmol/L Carbon Dioxide 15 L (22-30) mmol/L BUN (9-20) mg/dL Creatinine (0.8-1.5) mg/dL Glucose 243 H (75-100) mg/dL POC Glucose 183 H 238 H (70-105) Calcium 8.0 L (8.4-10.2) mg/dL Albumin (3.9-5) g/dL Prealbumin (0.200-0.400) g/L 10/03/16 10/03/16 10/03/16 Range/Units 18:30 20:05 22:03 Sodium (137-145) mmol/L Chloride (98-107) mmol/L Carbon Dioxide (22-30) mmol/L BUN (9-20) mg/dL Creatinine (0.8-1.5) mg/dL Glucose (75-100) mg/dL POC Glucose 139 H 209 H 216 H (70-105) Calcium (8.4-10.2) mg/dL Albumin (3.9-5) g/dL Prealbumin (0.200-0.400) g/L 10/04/16 10/04/16 10/04/16 Range/Units 00:10 01:21 02:46 Sodium (137-145) mmol/L Chloride (98-107) mmol/L Carbon Dioxide (22-30) mmol/L BUN (9-20) mg/dL Creatinine (0.8-1.5) mg/dL Glucose (75-100) mg/dL POC Glucose 306 H 300 H 278 H (70-105) Calcium (8.4-10.2) mg/dL Albumin (3.9-5) g/dL Prealbumin (0.200-0.400) g/L 10/04/16 10/04/16 10/04/16 Range/Units 04:36 05:54 05:57 Sodium 127 L (137-145) mmol/L Chloride 97.0 L (98-107) mmol/L Carbon Dioxide 15 L (22-30) mmol/L BUN 7 L (9-20) mg/dL Creatinine (0.8-1.5) mg/dL Glucose 200 H (75-100) mg/dL POC Glucose 172 H 218 H (70-105) Calcium 7.4 L (8.4-10.2) mg/dL Albumin (3.9-5) g/dL Prealbumin (0.200-0.400) g/L 10/04/16 10/04/16 10/04/16 Range/Units 07:07 07:59 07:59 Sodium 128 L (137-145) mmol/L Chloride 96.2 L (98-107) mmol/L Carbon Dioxide 18 L (22-30) mmol/L BUN 6 L (9-20) mg/dL Creatinine 0.7 L (0.8-1.5) mg/dL Glucose 152 H (75-100) mg/dL POC Glucose 138 H (70-105) Calcium 7.5 L (8.4-10.2) mg/dL Albumin 2.6 L (3.9-5) g/dL Prealbumin 0.050 L (0.200-0.400) g/L 10/04/16 Range/Units 08:48 Sodium (137-145) mmol/L Chloride (98-107) mmol/L Carbon Dioxide (22-30) mmol/L BUN (9-20) mg/dL Creatinine (0.8-1.5) mg/dL Glucose (75-100) mg/dL POC Glucose 176 H (70-105) Calcium (8.4-10.2) mg/dL Albumin (3.9-5) g/dL Prealbumin (0.200-0.400) g/L
[2016-10-04] MEDS: TYLENOL PO PRN (14:56)
--- NOTE | 2016-10-04 16:00 | Event Note ---
Date: 10/04/16 ICU admission initially requested for IV insulin therapy Downgraded at time of my evaluation ...will sign off please reconsult if needed
[2016-10-04] MEDS: LEVEMIR SUB-Q SCH (23:02)
--- NOTE | 2016-10-05 01:51 | Admit Criteria Form ---
<GANTI,SHILA HYDE - Last Filed: 10/05/16 01:49> Admission Criteria Documentation: WOUND COMPLICATIONS Clinical Indications for Inpatient Care (Place 'X' for any and all applicable criteria): Ongoing inpatient care may be indicated for wound complications with ANY ONE of the following (1) (15): [X]I. Infection with ANY ONE of the following(32)(33): [ ]a) Temperature greater than 38.5 C (101.3 F) [ ]b) Evidence of tissue necrosis [ ]c) Erythema diameter expanding around wound despite treatment [ ]d) Mental status changes [ ]e) Dehydration [ ]f) Bacteremia [ ]g) Hemodynamic instability [ ]h) Suspected necrotizing fasciitis [ ]i) Rapidly spreading lesions [ ]j) High-risk location (eg, perineum, sternum, orbit) [X]k) High-risk coexisting clinical condition as indicated by ANY ONE of the following: [X]i) Poorly controlled diabetes [ ]ii) Cirrhosis [ ]iii) Renal failure [ ]iv) Neutropenia [ ] v) Asplenia [ ]vi) Immunosuppression (eg, AIDS, chronic corticosteroid use) [ ]viii) Other high-risk medical comorbidities [ ] II. Dehiscence requiring frequent monitoring or immediate treatment [ ] III. Hematoma with ANY ONE of the following: [ ]a) Hemodynamic instability or acute anemia due to rapid development of hematoma [ ]b) Neck hematoma causing airway compression [ ]c) Retroperitoneal hematoma [ ]d) Uncontrolled coagulopathy [ ]IV. Seroma with evidence of secondary infection and requirement for IV antibiotics [D](31) [ ]V. Pain that cannot be managed at lower level of care Extended stay beyond goal length of stay for primary condition may be needed until ALL of the following are present(1)(33)(34): [ ]a) Afebrile or fever resolving [ ]b) Hemodynamic stability [ ]c) Pain resolving [ ]d) Wound closed, continuity adequately restored, or wound manageable at lower level of care [ ]e) No drain needed or drain care manageable at lower level of care [ ]f) Wound hematoma or seroma resolving [ ]g) Antibiotics not needed or regimen manageable at lower level of care(38) [ ]h) Dressing care manageable at lower level of care [ ]i) Coagulopathy absent, resolved, or treatable at lower level of care [ ]j) Medical comorbidities resolved or treatable at lower level of care The original [facility] content created by [facility] has been revised. The portions of the content which have been revised are identified through the use of italic text or in bold, and [facility] has neither reviewed nor approved the modified material. All other unmodified content is copyright [facility]. Please see references footnoted in the original [facility] edition 2016 Admission Criteria Met: Yes <EDGAR MCCANN - Last Filed: 10/09/16 15:17> Admission Criteria Documentation: I am administratively signing this note. It has no bearing on the patient's admission status and was not filled out by me.
[2016-10-05] MEDS: MORPHINE IV PRN (02:48)
[2016-10-05] MEDS: VANCOMYCIN 750 MG in NACL 0.9% 250ML 250 ML IV SCH (06:16)
[2016-10-05] MEDS: TYLENOL PO PRN ×2 (07:49→20:19)
--- NOTE | 2016-10-05 13:19 | Consultation ---
History of Present Illness - Reason for Consult Consult date: 10/05/16 MSSA skin infection and persistent fever Requesting physician: MABLE WHITESIDE - History of Present Illness This is an 30 years old male with history of diabetes type 1 and previous MRSA skin infection, admitted on 10/03/2016 due to 2-week history of progressive edema, erythema and tenderness of the right shoulder area. As well, patient reported edema, erythema and tenderness of the left scapular area. Patient noted that the lesions were progressively getting bigger and more tender. He is on lantus and regular insulin at home. His glucose at home was in the high 350s. In the emergency room, he was afebrile, heart heart rate in the 140s, hypotensive, glucose 450+, a normal white blood cell count. Patient was initially started on vancomycin IV. today his temperature went to 102. Skin lesion cultures grew MSSA Past History Past Medical History: diabetes, other (previous MRSA skin infection) Past Surgical History: Other (Back abscess I+D) Social history: no significant social history, lives with family, full code. denies: smoking, alcohol abuse, prescription drug abuse, IV drug use Family history: no significant family history Medications and Allergies Allergies Allergy/AdvReac Type Severity Reaction Status Date / Time codeine Allergy Hives Verified 08/14/16 07:20 ondansetron HCl [From Zofran] Allergy Hives Verified 08/14/16 07:20 hydrocodone bitartrate AdvReac Headache Verified 08/14/16 07:20 [From Lortab] Home Medications Medication Instructions Recorded Confirmed Last Taken Type Insulin Glargine [Lantus VIAL] 15 units SUB-Q HS 06/18/16 10/03/16 Unknown History Insulin Regular, Human [HumuLIN R] 0 unit SQ ACHS 10/03/16 10/03/16 Unknown History Active Meds: Active Medications Acetaminophen (Tylenol) 650 mg PO Q6H PRN PRN Reason: Pain, Mild (1-3) Last Admin: 10/05/16 07:49 Dose: 650 mg Dextrose (D50w (25gm)) 0 ml IV ONCE PRN PRN Reason: Hypoglycemia Diphenhydramine HCl (Benadryl) 25 mg PO Q6H PRN PRN Reason: Itching Last Admin: 10/04/16 09:26 Dose: 25 mg Insulin Human Regular 100 (units/ Sodium Chloride) 100 mls @ 1 mls/hr IV TITR SHARATH; 1 UNITS/HR PRN Reason: Protocol Last Titration: 10/04/16 09:53 Dose: 0 units/hr, 0 mls/hr Sodium Chloride (Nacl 0.9% 1000 Ml) 1,000 mls @ 50 mls/hr IV DIRECT SHARATH Cefazolin Sodium 2 gm/ Sodium (Chloride) 100 mls @ 100 mls/hr IV Q8H SHARATH Clindamycin HCl (Cleocin 600 Mg/50 Ml) 600 mg in 50 mls @ 100 mls/hr IV Q8HR SHARATH Insulin Detemir (Levemir) 10 units SUB-Q QHS SHARATH Last Admin: 10/04/16 23:02 Dose: 10 units Insulin Human Regular (Novolin R) 0 units SUB-Q ACHS SHARATH PRN Reason: Protocol Last Admin: 10/05/16 12:36 Dose: 3 units Morphine Sulfate (Morphine) 2 mg IV Q4H PRN PRN Reason: Pain, Moderate (4-6) Last Admin: 10/05/16 02:48 Dose: 2 mg Review of Systems Constitutional: fever, chills, fatigue Ears, nose, mouth and throat: no nasal discharge, no sinus pressure Cardiovascular: no chest pain, no syncope, no lightheadedness Respiratory: no cough Gastrointestinal: no abdominal pain, no nausea, no vomiting Genitourinary Male: no dysuria Musculoskeletal: no neck stiffness, no low back pain Integumentary: redness, sores Psychiatric: no anxiety, no depression Endocrine: polyuria Allergic/Immunologic: no wheezing, no anaphylaxis, no angioedema Physical Examination - Constitutional Vitals: Vital Signs Temp Pulse Resp BP Pulse Ox 102.4 F H 124 H 14 124/86 97 10/05/16 08:00 10/05/16 08:00 10/05/16 08:00 10/05/16 08:00 10/05/16 08:00 Temperature -Last 24 Hours Temperature 102.4 F Temperature 98.6 F Temperature 98.8 F Temperature 99.1 F Temperature 100.5 F General appearance: Present: no acute distress - EENT Eyes: Present: PERRL ENT: hearing intact - Neck Neck: Present: supple, normal ROM - Respiratory Respiratory effort: normal - Cardiovascular Rhythm: regular Heart Sounds: Present: S1 & S2 - Extremities Extremities: pulses symmetrical, No edema - Abdominal General gastrointestinal: Present: soft, non-tender, non-distended Male genitourinary: Present: deferred - Rectal Rectal Exam: deferred - Integumentary Integumentary: Present: erythema (right shoulder round erythema, edema and tenderness covered with eschar and fluctuance sensation. Left back eschar with edema and tenderness. Multiple other smaller boils non drainaing ) Results - Labs CBC & Chem 7: 10/02/16 22:06 10/04/16 07:59 Labs: Abnormal lab results 10/04/16 10/04/16 10/05/16 Range/Units 17:07 21:21 06:35 POC Glucose 238 H 208 H 68 L (70-105) 10/05/16 10/05/16 10/05/16 Range/Units 06:52 06:54 07:23 POC Glucose 67 L 67 L 142 H (70-105) 10/05/16 Range/Units 11:07 POC Glucose 233 H (70-105) MICRO Skin lesion cultures + MSSA Blood cultures negative Assessment and Plan Assessment: 1) Sepsis: Present on admission with hypotension and tachycardia. Etiology most likely skin and soft tissue infection. Blood cultures negative. 2) Multiple cutaneous abscesses to right shoulder and left scapular areas: secondary to MSSA per culture report. 3) Uncontrolled diabetes with DKA 4) History of MRSA skin infection Plan: -stop vancomycin -start cefazolin 2 g IV q 8 hours -start clindamycin 600 mg IV q 8 hours -Surgical consult for I+D -monitor fever -strict diabetes control Thank you Dr Whiteside for your consultation, will follow up with you. Rowena Oh MD Infectious Diseases Specialist [facility] ([facility] Mobile-phone [phone]
[2016-10-05] MEDS: CLEOCIN 600 MG/50 mL 600 MG/50 ML BAG IV SCH ×2 (14:04→21:56)
[2016-10-05] MEDS: ceFAZolin 2 GM in NACL 0.9% 100 ML IV SCH ×2 (14:04→22:52)
--- NOTE | 2016-10-05 14:27 | Progress Note ---
Assessment and Plan Patient alert, awake. No complaint of chest pain or shortness of breath.O2 saturation 97%. 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 (2) Acute chest pain Current Visit: No Status: Acute Plan to address problem: Management as per primary care and cardiology. (3) Acute kidney injury Current Visit: No Status: Acute Plan to address problem: Management as per nephrology. (4) Cellulitis of right foot Current Visit: No Status: Acute Plan to address problem: Patient is on Clindamycin and cefzolin. Subjective Date of service: 10/05/16 Interval history: Patient alert, awake. No complaint of chest pain or shortness of breath.O2 saturation 97%. Objective Vital Signs - 12hr 10/05/16 08:00 Temperature 102.4 F H Pulse Rate 124 H Respiratory 14 Rate Blood Pressure 124/86 O2 Sat by Pulse 97 Oximetry CBC and BMP: 10/02/16 22:06 10/04/16 07:59 ABG, PT/INR, D-dimer: ABG POC ABG pH 7.330 (7.35-7.45) L 10/03/16 09:36 POC ABG pCO2 24.5 (35-45) L 10/03/16 09:36 POC ABG pO2 121 (80-105) H 10/03/16 09:36 POC ABG HCO3 12.9 10/03/16 09:36 POC ABG Total CO2 14 10/03/16 09:36 POC ABG O2 Sat 99 10/03/16 09:36 Abnormal lab findings: Abnormal Labs 10/03/16 10/03/16 10/03/16 07:54 09:19 09:36 POC ABG pH 7.330 L POC ABG pCO2 24.5 L POC ABG pO2 121 H Sodium 131 L Chloride 92.3 L Carbon Dioxide 14 L BUN 21 H Creatinine Glucose 426 H POC Glucose 466 H Calcium 8.1 L D Albumin Prealbumin 10/03/16 10/03/16 10/03/16 10:52 11:36 12:13 POC ABG pH POC ABG pCO2 POC ABG pO2 Sodium 135 L Chloride Carbon Dioxide 14 L BUN Creatinine Glucose 240 H POC Glucose 276 H 218 H Calcium 7.9 L Albumin Prealbumin 10/03/16 10/03/16 10/03/16 13:39 14:20 14:44 POC ABG pH POC ABG pCO2 POC ABG pO2 Sodium 132 L Chloride 96.2 L Carbon Dioxide 16 L BUN Creatinine Glucose 263 H POC Glucose 244 H 242 H Calcium 8.2 L Albumin Prealbumin 10/03/16 10/03/16 10/03/16 15:54 17:01 17:16 POC ABG pH POC ABG pCO2 POC ABG pO2 Sodium 130 L Chloride 96.1 L Carbon Dioxide 15 L BUN Creatinine Glucose 243 H POC Glucose 183 H 238 H Calcium 8.0 L Albumin Prealbumin 10/03/16 10/03/16 10/03/16 18:30 20:05 22:03 POC ABG pH POC ABG pCO2 POC ABG pO2 Sodium Chloride Carbon Dioxide BUN Creatinine Glucose POC Glucose 139 H 209 H 216 H Calcium Albumin Prealbumin 10/04/16 10/04/16 10/04/16 00:10 01:21 02:46 POC ABG pH POC ABG pCO2 POC ABG pO2 Sodium Chloride Carbon Dioxide BUN Creatinine Glucose POC Glucose 306 H 300 H 278 H Calcium Albumin Prealbumin 10/04/16 10/04/16 10/04/16 04:36 05:54 05:57 POC ABG pH POC ABG pCO2 POC ABG pO2 Sodium 127 L Chloride 97.0 L Carbon Dioxide 15 L BUN 7 L Creatinine Glucose 200 H POC Glucose 172 H 218 H Calcium 7.4 L Albumin Prealbumin 10/04/16 10/04/16 10/04/16 07:07 07:59 07:59 POC ABG pH POC ABG pCO2 POC ABG pO2 Sodium 128 L Chloride 96.2 L Carbon Dioxide 18 L BUN 6 L Creatinine 0.7 L Glucose 152 H POC Glucose 138 H Calcium 7.5 L Albumin 2.6 L Prealbumin 0.050 L 10/04/16 10/04/16 10/04/16 08:48 12:46 17:07 POC ABG pH POC ABG pCO2 POC ABG pO2 Sodium Chloride Carbon Dioxide BUN Creatinine Glucose POC Glucose 176 H 151 H 238 H Calcium Albumin Prealbumin 10/04/16 10/05/16 10/05/16 21:21 06:35 06:52 POC ABG pH POC ABG pCO2 POC ABG pO2 Sodium Chloride Carbon Dioxide BUN Creatinine Glucose POC Glucose 208 H 68 L 67 L Calcium Albumin Prealbumin 10/05/16 10/05/16 10/05/16 06:54 07:23 11:07 POC ABG pH POC ABG pCO2 POC ABG pO2 Sodium Chloride Carbon Dioxide BUN Creatinine Glucose POC Glucose 67 L 142 H 233 H Calcium Albumin Prealbumin
--- NOTE | 2016-10-05 14:37 | Consultation ---
History of Present Illness Consult date: 10/05/16 Reason for consult: other (Bilateral shoulder abscesses) Chief complaint: Bilateral shoulder abscesses - History of present illness History of present illness: This problem began 3 days ago. The infections have been draining. He is a diabetic. He is not aware of his last A1c. Past History Past Medical History: diabetes, other (previous MRSA skin infection) Past Surgical History: Other (Back abscess I+D) Social history: no significant social history, lives with family, full code. denies: smoking, alcohol abuse, prescription drug abuse, IV drug use Family history: no significant family history Medications and Allergies Allergies Allergy/AdvReac Type Severity Reaction Status Date / Time codeine Allergy Hives Verified 08/14/16 07:20 ondansetron HCl [From Zofran] Allergy Hives Verified 08/14/16 07:20 hydrocodone bitartrate AdvReac Headache Verified 08/14/16 07:20 [From Lortab] Home Medications Medication Instructions Recorded Confirmed Last Taken Type Insulin Glargine [Lantus VIAL] 15 units SUB-Q HS 06/18/16 10/03/16 Unknown History Insulin Regular, Human [HumuLIN R] 0 unit SQ ACHS 10/03/16 10/03/16 Unknown History Active Meds: Active Medications Acetaminophen (Tylenol) 650 mg PO Q6H PRN PRN Reason: Pain, Mild (1-3) Last Admin: 10/05/16 07:49 Dose: 650 mg Dextrose (D50w (25gm)) 0 ml IV ONCE PRN PRN Reason: Hypoglycemia Diphenhydramine HCl (Benadryl) 25 mg PO Q6H PRN PRN Reason: Itching Last Admin: 10/04/16 09:26 Dose: 25 mg Insulin Human Regular 100 (units/ Sodium Chloride) 100 mls @ 1 mls/hr IV TITR SHARATH; 1 UNITS/HR PRN Reason: Protocol Last Titration: 10/04/16 09:53 Dose: 0 units/hr, 0 mls/hr Sodium Chloride (Nacl 0.9% 1000 Ml) 1,000 mls @ 50 mls/hr IV DIRECT SHARATH Cefazolin Sodium 2 gm/ Sodium (Chloride) 100 mls @ 100 mls/hr IV Q8H SHARATH Last Admin: 10/05/16 14:04 Dose: 100 mls/hr Clindamycin HCl (Cleocin 600 Mg/50 Ml) 600 mg in 50 mls @ 100 mls/hr IV Q8HR COUNT INCLUDES THE [facility] Last Admin: 10/05/16 14:04 Dose: 100 mls/hr Insulin Detemir (Levemir) 10 units SUB-Q QHS COUNT INCLUDES THE [facility] Last Admin: 10/04/16 23:02 Dose: 10 units Insulin Human Regular (Novolin R) 0 units SUB-Q ACHS SHARATH PRN Reason: Protocol Last Admin: 10/05/16 12:36 Dose: 3 units Morphine Sulfate (Morphine) 2 mg IV Q4H PRN PRN Reason: Pain, Moderate (4-6) Last Admin: 10/05/16 02:48 Dose: 2 mg Review of Systems All systems: negative Exam Vital Signs Temp Pulse Resp BP Pulse Ox 98.6 F 132 H 24 109/74 98 10/02/16 21:43 10/02/16 21:43 10/02/16 21:43 10/02/16 21:43 10/02/16 21:43 - General physical appearance Positive: well developed, well nourished, no distress - Eyes Positive: PERRL, normal occular movement - ENT Positive: normal pinna, normal nares, normal mucosa, no hearing loss, no congestion - Neck Positive: no masses, no bruits, trachea midline, no venous distension - Respiratory Positive: normal expansion, normal respiratory effort, clear to auscultation - Cardiovascular Rhythm: regular Heart Sounds: Present: S1 & S2. Absent: rub, click - Extremities Extremities: no ischemia, pulses symmetrical, No edema - Breasts Breasts: deferred - Abdomen Abdomen: Present: soft, bowel sounds normal. Absent: tender, distended Hernia: none - Genitourinary Male Genitourinary: deferred - Integumentary other (There is a 4 cm abscess of the right shoulder which is draining purulent but not foul smelling fluid. There is another 3 cm ulceration of the left upper back with necrotic skin and SQ without obvious drainage. ) - Neurologic Neurologic: alert and oriented to time, place and person, motor strength and sensation are grossly intact - Musculoskeletal normal gait, normal posture - Psychiatric Psychiatric: appropriate mood/affect, intact judgment & insight Results - Labs 10/02/16 22:06 10/04/16 07:59 Abnormal lab results 08/10/04/16 10/05/16 Range/Units 17:07 21:21 06:35 POC Glucose 238 H 208 H 68 L (70-105) 10/05/16 10/05/16 10/05/16 Range/Units 06:52 06:54 07:23 POC Glucose 67 L 67 L 142 H (70-105) 10/05/16 Range/Units 11:07 POC Glucose 233 H (70-105) Assessment and Plan - Patient Problems (1) Abscess Onset Date: ~10/02/16 Current Visit: Yes Status: Acute Plan to address problem: I&D of right shoulder abscess tomorrow. I will also debride vs I&D his left upper back wound/abscess.
--- NOTE | 2016-10-05 18:27 | Progress Note ---
Assessment and Plan This is a 30 y/o male with h/o DM type 1 presented with complaint of pain in the back and shoulders for the last several days. Noted to be in DKA and with multiple cutaneous lesion on his back with abscess formation. DKA, resolved - placed on DKA protocol with insulin drip on admission - place on ada diet, subqu insulin - Finger stick qACHS Hyponatremia - likely from DKA, improved - cont to monitor BMP and cont iv fluid Severe protein calorie malnutrition, POA - has generalized muscle wasting clinically - was NPO as he in DKA, now on ADA diet - nutrition consult - low albumin and prealbumin Cutaneous abscesses with sepsis - pt had low grade temp with tachycardia on admission - has h/o MRSA infection before, but now growing MSSA - consulted ID and recommended to stop vancomycin - started on cefazolin 2 g IV q 8 hours and clindamycin 600 mg IV q 8 hours - consulted Dr. Olmos will have I and D tomorrow DVT Px - lovenox Subjective Date of service: 10/05/16 Interval history: Pt seen and examined skin lesion on rt shoulder is most painful, spiked fever this am Objective - Exam Narrative Exam: GENERAL: This is a frail WM lying on bed appeared to be in no discomfort. HEENT: Normocephalic. Atraumatic. Extraocular motions are intact. No conjunctival congestion or icterus. Patient has moist mucous membranes. External auditory canal and nares patent bilaterally. NECK: Supple. Trachea midline. CHEST/LUNGS: Clear to auscultated bilaterally. There is no respiratory distress noted, breathing nonlabored. No wheezes crackles or rhonchi. HEART/CARDIOVASCULAR: Regular in rate and rhythm. PMI at the apex. There is no gallop rub or murmur. ABDOMEN: Abdomen is soft, nontender. Patient has normal bowel sounds. There is no abdominal distention. No organomagaly or rigidity. SKIN: There is no rash, no erythrema. There is no diaphoresis. Warm and dry. Multiple pustules on the back, with severe tenderness, erythrematous, indurated with centers covered with crust. There is a 4 cm abscess of the right shoulder which is draining purulent but not foul smelling fluid. There is another 3 cm ulceration of the left upper back with necrotic skin and SQ without obvious drainage. NEUROLOGY: The patient is awake, alert, and oriented. The patient is cooperative. The patient has normal speech. No focal motor deficit. MUSCULOSKELETAL: No joint effusion or tenderness. Muscle strength equal bilaterally. + muscle wasting (POA). EXTRIMITY: No edema, cyanosis or clubbing. PSYCH: No depression or anxiety noted. Cooperative. - Constitutional Vitals: Vital Signs - 12hr 10/05/16 10/05/16 08:00 15:48 Temperature 102.4 F H 98.4 F Pulse Rate 124 H 104 H Respiratory 14 14 Rate Blood Pressure 124/86 96/58 O2 Sat by Pulse 97 Oximetry - Labs CBC & Chem 7: 10/02/16 22:06 10/04/16 07:59 Labs: Abnormal lab results 10/04/16 10/05/16 10/05/16 Range/Units 21:21 06:35 06:52 POC Glucose 208 H 68 L 67 L (70-105) 10/05/16 10/05/16 10/05/16 Range/Units 06:54 07:23 11:07 POC Glucose 67 L 142 H 233 H (70-105) 10/05/16 Range/Units 16:33 POC Glucose 256 H (70-105)
[2016-10-05] MEDS: LEVEMIR SUB-Q SCH (22:06)
[2016-10-05] MEDS ORDERED: LEVEMIR SUB-Q SCH (23:31)
[2016-10-06] MEDS: CLEOCIN 600 MG/50 mL 600 MG/50 ML BAG IV SCH ×3 (05:39→21:28)
[2016-10-06 05:54] LABS: Basophils % (Auto) 0.5 % (0.0-1.8); Eosinophils % (Auto) 1.3 % (0.0-4.3); Hematocrit 24.1 % (35.5-45.6); Hemoglobin 8.1 gm/dl (11.8-15.2); Mean Corpuscular HGB Conc 34 % (32-34); Mean Corpuscular Hemoglobin 27 pg (28-32); Mean Corpuscular Volume 79 fl (84-94); Platelet Count 188 K/mm3 (140-440); Red Blood Count 3.03 M/mm3 (3.65-5.03); Red Cell Distribution Width 15.4 % (13.2-15.2); White Blood Count 4.8 K/mm3 (4.5-11.0)
[2016-10-06] MEDS ORDERED: PEPCID PO NR (06:00)
[2016-10-06] MEDS ORDERED: VERSED IV NR (06:00)
[2016-10-06] MEDS: ceFAZolin 2 GM in NACL 0.9% 100 ML IV SCH ×3 (06:10→22:40)
[2016-10-06] MEDS: MORPHINE IV PRN ×2 (06:20→13:06)
--- NOTE | 2016-10-06 09:58 | Progress Note ---
Assessment and Plan Assessment: 1) Sepsis: improving. Secondary to skin and soft tissue infection. Blood cultures negative. 2) Multiple cutaneous abscesses to right shoulder, left scapular areas and scalp : secondary to MSSA per culture report. 3) Uncontrolled diabetes with DKA 4) History of MRSA skin infection Plan: -continue cefazolin 2 g IV q 8 hours -continue clindamycin 600 mg IV q 8 hours - will stop soon -Surgical consult for I+D -monitor fever and tachycardia -strict diabetes control -upon discharge will do keflex 500 mg PO q 6 hours for 14 days from today (I+D) until 10/19/16. Keflex is free at [facility]. -needs ID clinic f/u in 2-3 weeks after discharge for Staph decolonization in view of recurrence. Thank you Dr Shah for your consultation, will follow up with you. Rowena Oh MD Infectious Diseases Specialist [facility] ([facility]) Mobile-phone [phone] Subjective Date of service: 10/06/16 Principal diagnosis: MSSA skin abscesses Interval history: Patient reports feeling the same, still cold sensation, however no new fever overnight. Tmax 99.5. he also noted a new lesion on the scalp. Denies N/V/D. Current Antibiotics: Cefazolin 10/05 Clindamycin 10/05 Previous Antibiotics: Vancomycin 10/03-10/05 Micro: Blood cultures: 10/03 negative 10/05 ngtd Urine cultures: Respiratory cultures: Wound cultures: 10/03 MSSA Objective - Constitutional Vitals: Vital Signs Temp Pulse Resp BP Pulse Ox 99.5 F 114 H 16 120/80 97 10/06/16 08:09 10/06/16 08:09 10/06/16 08:09 10/06/16 08:09 10/06/16 08:09 Temperature -Last 24 Hours Temperature 99.5 F Temperature 99.6 F Temperature 98.4 F General appearance: Present: no acute distress - EENT Eyes: PERRL, EOM intact ENT: clear oral mucosa - Neck Neck: supple, normal ROM - Respiratory Respiratory: bilateral: CTA (CTA elver) - Breasts Breasts: deferred - Cardiovascular Rhythm: regular (tachycardic) Extremities: No edema - Gastrointestinal General gastrointestinal: Present: soft, non-tender Rectal Exam: deferred - Genitourinary Male genitourinary: deferred - Integumentary Integumentary: erythema (right shoulder round edema, erythema, tenderness and eschar center. left scapular area round edema, erythema and eschar on top. central scalp with round edema, erythema, central openiong draining purulence. ) - Musculoskeletal Musculoskeletal: strength equal bilaterally - Neurologic Neurologic: CNII-XII intact, moves all extremities - Psychiatric Psychiatric: appropriate mood/affect - Labs CBC & Chem 7: 10/06/16 05:38 10/04/16 07:59 Labs: Abnormal lab results 10/05/16 10/05/16 10/05/16 Range/Units 06:35 06:52 06:54 RBC (3.65-5.03) M/mm3 Hgb (11.8-15.2) gm/dl Hct (35.5-45.6) % MCV (84-94) fl MCH (28-32) pg RDW (13.2-15.2) % Lymph # (1.2-5.4) K/mm3 Seg Neutrophils % (40.0-70.0) % POC Glucose 68 L 67 L 67 L (70-105) 10/05/16 10/05/16 10/05/16 Range/Units 11:07 16:33 21:22 RBC (3.65-5.03) M/mm3 Hgb (11.8-15.2) gm/dl Hct (35.5-45.6) % MCV (84-94) fl MCH (28-32) pg RDW (13.2-15.2) % Lymph # (1.2-5.4) K/mm3 Seg Neutrophils % (40.0-70.0) % POC Glucose 233 H 256 H 299 H (70-105) 10/06/16 10/06/16 Range/Units 05:38 05:42 RBC 3.03 L (3.65-5.03) M/mm3 Hgb 8.1 L (11.8-15.2) gm/dl Hct 24.1 L (35.5-45.6) % MCV 79 L (84-94) fl MCH 27 L (28-32) pg RDW 15.4 H (13.2-15.2) % Lymph # 0.7 L (1.2-5.4) K/mm3 Seg Neutrophils % 76.8 H (40.0-70.0) % POC Glucose 161 H (70-105)
--- NOTE | 2016-10-06 10:44 | Anesthesia Consultation ---
Anesthesia Consult and Med Hx Date of service: 10/06/16 - Airway Anesthetic Teeth Evaluation: Good (one bad in back - denies any other problemsn with teeth) ROM Head & Neck: Adequate Mental/Hyoid Distance: Adequate Mallampati Class: Class III Intubation Access Assessment: Difficult - Pulmonary Exam CTA: Yes - Cardiac Exam Cardiac Exam: RRR - Pre-Operative Health Status ASA Pre-Surgery Classification: ASA3 Proposed Anesthetic Plan: General (no previous GA problems) - Pulmonary Hx Smoking: No Hx Asthma: No Hx Respiratory Symptoms: No SOB: No COPD: No Hx Pneumonia: No Hx Sleep Apnea: No - Cardiovascular System Hx Coronary Artery Disease: No Hx Angina: No Hx Percutaneous Transluminal Coronary Angioplasty (PTCA): No Hx Valvular Heart Disease: No Hx Heart Murmur: No Hx Peripheral Vascular Disease: No - Central Nervous System CVA: No Hx Psychiatric Problems: No - Gastrointestinal Hx Ulcer: No (multiple infections on back and on head; had diagnosis of MRSA in past) - Endocrine Hx End Stage Renal Disease: No Hx Cirrhosis: No Hx Insulin Dependent Diabetes: Yes (uncontrolled. recent admission with DKA) Hx Hypothyroidism: No Hx Hyperthyroidism: No - Hematic Hx Anemia: No - Other Systems Hx Alcohol Use: No Hx Substance Use: No Hx Cancer: No
--- NOTE | 2016-10-06 10:45 | Anesthesia Day of Surgery ---
Anesthesia Day of Surgery - Day of Surgery Patient Examined: Yes Patient H&P Reviewed: Yes Patient is NPO: Yes
[2016-10-06] MEDS ORDERED: PEPCID IV NR (11:00)
--- NOTE | 2016-10-06 13:38 | Progress Note ---
Assessment and Plan Assessment and plan: This is a 30 y/o male with h/o DM type 1 presented with complaint of pain in the back and shoulders for the last several days. Noted to be in DKA and with multiple cutaneous lesion on his back with abscess formation. DKA, resolved - placed on DKA protocol with insulin drip on admission - place on ada diet, subqu insulin - Finger stick qACHS Hyponatremia - likely from DKA, improved Severe protein calorie malnutrition, POA - has generalized muscle wasting clinically - was NPO as he in DKA, now on ADA diet - nutrition consult - low albumin and prealbumin Cutaneous abscesses with sepsis - pt had low grade temp with tachycardia on admission - has h/o MRSA infection before, currently growing MSSA - consulted ID and recommended to stop vancomycin - Continue clindamycin - Incision and drainage is going to be done today DVT Px - lovenox Disposition - Continue inpatient care - Possible discharge tomorrow with by mouth antibiotics. History Interval history: Patient was seen and evaluated this morning, patient has abscess on his scalp, on the scapula and back. Hospitalist Physical - Physical exam Narrative exam: Not in cardiopulmonary distress. The patient appeared well nourished and normally developed. Vital signs as documented. Head exam reveals abscess on his scalp. Skin multiple abscess including the back and scapula. No scleral icterus . Neck is without jugular venous distension, thyromegaly, or carotid bruits. Lungs are clear to auscultation. Cardiac exam reveals regular rate and Rhythm. First and second heart sounds normal. No murmurs, rubs or gallops. Abdominal exam reveals normal bowel sounds, no masses, no organomegaly and no aortic enlargement. Extremities are nonedematous and both femoral and pedal pulses are normal. HARNESS REPA[employer]ER: Alert and oriented 3. No focal weakness. - Constitutional Vitals: Temp Pulse Resp BP Pulse Ox 99.5 F 114 H 16 120/80 97 10/06/16 08:09 10/06/16 08:09 10/06/16 08:09 10/06/16 08:09 10/06/16 08:09 General appearance: Present: no acute distress Results - Labs CBC & Chem 7: 10/06/16 05:38 10/04/16 07:59 Labs: Laboratory Last Values WBC 4.8 K/mm3 (4.5-11.0) 10/06/16 05:38 RBC 3.03 M/mm3 (3.65-5.03) L 10/06/16 05:38 Hgb 8.1 gm/dl (11.8-15.2) L 10/06/16 05:38 Hct 24.1 % (35.5-45.6) L 10/06/16 05:38 MCV 79 fl (84-94) L 10/06/16 05:38 MCH 27 pg (28-32) L 10/06/16 05:38 MCHC 34 % (32-34) 10/06/16 05:38 RDW 15.4 % (13.2-15.2) H 10/06/16 05:38 Plt Count 188 K/mm3 (140-440) 10/06/16 05:38 Lymph % (Auto) 14.7 % (13.4-35.0) 10/06/16 05:38 Martin % (Auto) 6.7 % (0.0-7.3) 10/06/16 05:38 Eos % (Auto) 1.3 % (0.0-4.3) 10/06/16 05:38 Baso % (Auto) 0.5 % (0.0-1.8) 10/06/16 05:38 Lymph # 0.7 K/mm3 (1.2-5.4) L 10/06/16 05:38 Martin # 0.3 K/mm3 (0.0-0.8) 10/06/16 05:38 Eos # 0.1 K/mm3 (0.0-0.4) 10/06/16 05:38 Baso # 0.0 K/mm3 (0.0-0.1) 10/06/16 05:38 Seg Neutrophils % 76.8 % (40.0-70.0) H 10/06/16 05:38 Seg Neutrophils # 3.7 K/mm3 (1.8-7.7) 10/06/16 05:38 POC ABG pH 7.330 (7.35-7.45) L 10/03/16 09:36 POC ABG pCO2 24.5 (35-45) L 10/03/16 09:36 POC ABG pO2 121 (80-105) H 10/03/16 09:36 POC ABG HCO3 12.9 10/03/16 09:36 POC ABG Total CO2 14 10/03/16 09:36 POC ABG O2 Sat 99 10/03/16 09:36 POC ABG Base Excess -13 10/03/16 09:36 FiO2 21 % 10/03/16 09:36 Sodium 128 mmol/L (137-145) L 10/04/16 07:59 Potassium 3.9 mmol/L (3.6-5.0) 10/04/16 07:59 Chloride 96.2 mmol/L (98-107) L 10/04/16 07:59 Carbon Dioxide 18 mmol/L (22-30) L 10/04/16 07:59 Anion Gap 18 mmol/L 10/04/16 07:59 BUN 6 mg/dL (9-20) L 10/04/16 07:59 Creatinine 0.7 mg/dL (0.8-1.5) L 10/04/16 07:59 Estimated GFR > 60 ml/min 10/04/16 07:59 BUN/Creatinine Ratio 8.57 % 10/04/16 07:59 Glucose 152 mg/dL (75-100) H 10/04/16 07:59 POC Glucose 167 (70-105) H 10/06/16 11:34 Ketones Quantitative Moderate (Negative) 10/03/16 07:54 Calcium 7.5 mg/dL (8.4-10.2) L 10/04/16 07:59 Phosphorus 3.00 mg/dL (2.5-4.5) 10/03/16 07:54 Magnesium 1.70 mg/dL (1.7-2.3) 10/03/16 07:54 Albumin 2.6 g/dL (3.9-5) L 10/04/16 07:59 Prealbumin 0.050 g/L (0.200-0.400) L 10/04/16 07:59 Urine Color Yellow (Yellow) 10/03/16 00:12 Urine Turbidity Clear (Clear) 10/03/16 00:12 Urine pH 6.0 (5.0-7.0) 10/03/16 00:12 Ur Specific [place] 1.024 (1.003-1.030) 10/03/16 00:12 Urine Protein 30 mg/dl mg/dL (Negative) 10/03/16 00:12 Urine Glucose (UA) >=500 mg/dL (Negative) 10/03/16 00:12 Urine Ketones 80 mg/dL (Negative) 10/03/16 00:12 Urine Blood Sm (Negative) 10/03/16 00:12 Urine Nitrite Neg (Negative) 10/03/16 00:12 Urine Bilirubin Neg (Negative) 10/03/16 00:12 Urine Urobilinogen < 2.0 mg/dL (<2.0) 10/03/16 00:12 Ur Leukocyte Esterase Neg (Negative) 10/03/16 00:12 Urine WBC (Auto) 2.0 /HPF (0.0-6.0) 10/03/16 00:12 Urine RBC (Auto) 3.0 /HPF (0.0-6.0) 10/03/16 00:12 Hyaline Casts 24 /LPF 10/03/16 00:12 Granular Casts 33 /LPF 10/03/16 00:12 Urine Mucus Few /HPF 10/03/16 00:12
[2016-10-06] MEDS: NACL 0.9% 1000 ML 1,000 ML IV SCH (16:45)
[2016-10-06] MEDS ORDERED: XYLOCAINE MPF 2% ONE (17:03)
[2016-10-06] MEDS ORDERED: ZOFRAN ONE (17:03)
[2016-10-06] MEDS ORDERED: DECADRON ONE (17:03)
[2016-10-06] MEDS ORDERED: DIPRIVAN 10 MG/ML IV ONE (17:03)
[2016-10-06] MEDS ORDERED: SUBLIMAZE ONE (17:03)
[2016-10-06] MEDS ORDERED: MARCAINE-EPI/PF 0.25%-1:200,000 INFILTRATI ONE (17:36)
[2016-10-06] MEDS ORDERED: ZEMURON IV ONE (17:36)
[2016-10-06] MEDS ORDERED: ROBINUL ONE ×2 (17:36)
[2016-10-06] MEDS ORDERED: NACL 0.9% IR ONE (18:11)
[2016-10-06] MEDS ORDERED: QUELICIN ONE (18:22)
--- NOTE | 2016-10-06 18:44 | Post Operative Note ---
Pre-op diagnosis: Bilateral shoulder abscesses Post-op diagnosis: same Procedure: Bilateral I&D of bilateral shoulder abscesses Anesthesia: BART Primary Therapist: PHU HYATT Estimated blood loss: minimal Pathology: none Specimen disposition: to lab (C&S done bilaterally) Condition: stable Disposition: PACU
[2016-10-06] MEDS ORDERED: DILAUDID IV PRN (18:58)
[2016-10-06] MEDS ORDERED: LEVEMIR SUB-Q SCH (22:00)
[2016-10-07] MEDS: CLEOCIN 600 MG/50 mL 600 MG/50 ML BAG IV SCH (05:07)
[2016-10-07 05:17] LABS: Basophils % (Auto) 0.7 % (0.0-1.8); Eosinophils % (Auto) 0.1 % (0.0-4.3); Hemoglobin 7.9 gm/dl (11.8-15.2); Mean Corpuscular HGB Conc 33 % (32-34); Mean Corpuscular Hemoglobin 27 pg (28-32); Mean Corpuscular Volume 82 fl (84-94); Platelet Count 188 K/mm3 (140-440); Red Blood Count 2.92 M/mm3 (3.65-5.03); Red Cell Distribution Width 16.1 % (13.2-15.2); White Blood Count 3.6 K/mm3 (4.5-11.0)
[2016-10-07 05:27] LABS: Anion Gap 19 mmol/L; BUN/Creatinine Ratio 8.75; Blood Urea Nitrogen 7 mg/dL (9-20); Calcium 7.7 mg/dL (8.4-10.2); Carbon Dioxide 18 mmol/L (22-30); Chloride 97.8 mmol/L (98-107); Glucose 269 mg/dL (75-100); Potassium 3.6 mmol/L (3.6-5.0); Sodium 131 mmol/L (137-145)
[2016-10-07] MEDS: ceFAZolin 2 GM in NACL 0.9% 100 ML IV SCH ×3 (05:40→23:28)
--- NOTE | 2016-10-07 09:52 | Progress Note ---
Assessment and Plan Assessment: 1) Sepsis: fever resolved. Secondary to skin and soft tissue infection. Blood cultures negative. 2) Multiple cutaneous abscesses to right shoulder, left scapular areas and scalp : secondary to MSSA per culture report. 3) Uncontrolled diabetes with DKA 4) History of MRSA skin infection Plan: -continue cefazolin 2 g IV q 8 hours -stop clindamycin -to the OR today for I+D of scalp abscess -monitor fever and tachycardia -strict diabetes control -upon discharge will do keflex 500 mg PO q 6 hours for 14 days from today (I+D) until 10/19/16. Keflex is free at [employer]. -needs ID clinic f/u in 2-3 weeks after discharge for Staph decolonization in view of recurrence. Thank you Dr Shah for your consultation, will follow up with you. Rowena Garnica MD Infectious Diseases Specialist [facility] ([facility]) M [phone] O [phone] Subjective Date of service: 10/07/16 Principal diagnosis: MSSA skin abscesses Interval history: Patient reports feeling better, denies fever, chills or cold sensation. Went to the OR yesterday for I+D bilateral shoulder abscesses. Denies N/V/D. Current Antibiotics: Cefazolin 10/05 Clindamycin 10/05 Previous Antibiotics: Vancomycin 10/03-10/05 Micro: Blood cultures: 10/03 negative 10/05 ngtd Urine cultures: Respiratory cultures: Wound cultures: 10/03 MSSA 10/06 OR drainage + GPC Objective - Constitutional Vitals: Vital Signs Temp Pulse Resp BP Pulse Ox 98.5 F 88 20 127/90 96 10/07/16 08:00 10/07/16 08:00 10/07/16 08:00 10/07/16 08:00 10/07/16 08:00 Temperature -Last 24 Hours Temperature 98.5 F Temperature 98.9 F Temperature 98.1 F Temperature 97.8 F Temperature 100.3 F General appearance: Present: no acute distress, well-nourished - EENT Eyes: PERRL, EOM intact ENT: hearing intact, clear oral mucosa Ears: bilateral: normal - Neck Neck: supple, normal ROM - Respiratory Respiratory: bilateral: CTA - Breasts Breasts: deferred - Cardiovascular Rhythm: regular Heart Sounds: Present: S1 & S2. Absent: gallop, rub Extremities: pulses intact, No edema, normal color, Full ROM - Gastrointestinal General gastrointestinal: Present: soft, non-tender, non-distended, normal bowel sounds - Integumentary Integumentary: erythema (right shoulder abscess area and left scapular area covered with surgical dressings. Scalp lesions with edema and drainaing purulence. ) - Labs CBC & Chem 7: 10/07/16 04:24 10/07/16 04:24 Labs: Abnormal lab results 10/06/16 10/06/16 10/06/16 Range/Units 11:34 16:00 19:05 WBC (4.5-11.0) K/mm3 RBC (3.65-5.03) M/mm3 Hgb (11.8-15.2) gm/dl Hct (35.5-45.6) % MCV (84-94) fl MCH (28-32) pg RDW (13.2-15.2) % White % (Auto) (0.0-7.3) % Lymph # (1.2-5.4) K/mm3 Seg Neutrophils % (40.0-70.0) % Sodium (137-145) mmol/L Chloride (98-107) mmol/L Carbon Dioxide (22-30) mmol/L BUN (9-20) mg/dL Glucose (75-100) mg/dL POC Glucose 167 H 249 H 266 H (70-105) Hemoglobin A1c (4-6) % Calcium (8.4-10.2) mg/dL 10/06/16 10/06/16 10/07/16 Range/Units 19:53 21:42 04:24 WBC 3.6 L (4.5-11.0) K/mm3 RBC 2.92 L (3.65-5.03) M/mm3 Hgb 7.9 L (11.8-15.2) gm/dl Hct 24.0 L (35.5-45.6) % MCV 82 L (84-94) fl MCH 27 L (28-32) pg RDW 16.1 H (13.2-15.2) % White % (Auto) 8.9 H (0.0-7.3) % Lymph # 0.6 L (1.2-5.4) K/mm3 Seg Neutrophils % 72.8 H (40.0-70.0) % Sodium (137-145) mmol/L Chloride (98-107) mmol/L Carbon Dioxide (22-30) mmol/L BUN (9-20) mg/dL Glucose (75-100) mg/dL POC Glucose 247 H 351 H (70-105) Hemoglobin A1c (4-6) % Calcium (8.4-10.2) mg/dL 10/07/16 10/07/16 10/07/16 Range/Units 04:24 04:24 06:21 WBC (4.5-11.0) K/mm3 RBC (3.65-5.03) M/mm3 Hgb (11.8-15.2) gm/dl Hct (35.5-45.6) % MCV (84-94) fl MCH (28-32) pg RDW (13.2-15.2) % White % (Auto) (0.0-7.3) % Lymph # (1.2-5.4) K/mm3 Seg Neutrophils % (40.0-70.0) % Sodium 131 L (137-145) mmol/L Chloride 97.8 L (98-107) mmol/L Carbon Dioxide 18 L (22-30) mmol/L BUN 7 L (9-20) mg/dL Glucose 269 H (75-100) mg/dL POC Glucose 311 H (70-105) Hemoglobin A1c 10.4 H (4-6) % Calcium 7.7 L (8.4-10.2) mg/dL
[2016-10-07] MEDS ORDERED: ROBINUL ONE (13:00)
[2016-10-07] MEDS ORDERED: NEO SYNEPHRINE/NS Syringe(OR USE) IV ONE (13:00)
[2016-10-07] MEDS ORDERED: SUBLIMAZE ONE (13:34)
[2016-10-07] MEDS ORDERED: DIPRIVAN 10 MG/ML IV ONE (13:34)
--- NOTE | 2016-10-07 13:40 | Progress Note ---
Assessment and Plan Assessment and plan: This is a 30 y/o male with h/o DM type 1 presented with complaint of pain in the back and shoulders for the last several days. Noted to be in DKA and with multiple cutaneous lesion on his back with abscess formation. DKA, resolved, diabetes mellitus with hyperglycemia - placed on DKA protocol with insulin drip on admission and DKA resolved - place on ada diet, subqu insulin - Restarted home does of insulin, I add short-acting insulin, - Finger stick qACHS Hyponatremia - likely from DKA, improved Severe protein calorie malnutrition, POA - has generalized muscle wasting clinically - nutrition consult - low albumin and prealbumin Cutaneous abscesses with sepsis - pt had low grade temp with tachycardia on admission - has h/o MRSA infection before, currently growing MSSA - consulted ID and recommended to put him on cefazolin - Incision and drainage of scapula and shoulder abscesses was done yesterday and will have I&D of the scalp to be done today DVT Px - lovenox Disposition - We'll discharge him tomorrow with by mouth antibiotics History Interval history: Patient was seen and evaluated this morning, patient has abscess on his scalp, on the scapula and back. Hospitalist Physical - Physical exam Narrative exam: Not in cardiopulmonary distress. The patient appeared well nourished and normally developed. Vital signs as documented. Head exam reveals abscess on his scalp. Skin multiple abscess including the back and scapula. No scleral icterus . Neck is without jugular venous distension, thyromegaly, or carotid bruits. Lungs are clear to auscultation. Cardiac exam reveals regular rate and Rhythm. First and second heart sounds normal. No murmurs, rubs or gallops. Abdominal exam reveals normal bowel sounds, no masses, no organomegaly and no aortic enlargement. Extremities are nonedematous and both femoral and pedal pulses are normal. 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 No focal weakness. - Constitutional Vitals: Temp Pulse Resp BP Pulse Ox 98.5 F 88 20 127/90 96 10/07/16 08:00 10/07/16 08:00 10/07/16 08:00 10/07/16 08:00 10/07/16 08:00 General appearance: Present: no acute distress, well-nourished Results - Labs CBC & Chem 7: 10/07/16 04:24 10/07/16 04:24 Labs: Laboratory Last Values WBC 3.6 K/mm3 (4.5-11.0) L 10/07/16 04:24 RBC 2.92 M/mm3 (3.65-5.03) L 10/07/16 04:24 Hgb 7.9 gm/dl (11.8-15.2) L 10/07/16 04:24 Hct 24.0 % (35.5-45.6) L 10/07/16 04:24 MCV 82 fl (84-94) L 10/07/16 04:24 MCH 27 pg (28-32) L 10/07/16 04:24 MCHC 33 % (32-34) 10/07/16 04:24 RDW 16.1 % (13.2-15.2) H 10/07/16 04:24 Plt Count 188 K/mm3 (140-440) 10/07/16 04:24 Lymph % (Auto) 17.5 % (13.4-35.0) 10/07/16 04:24 Early % (Auto) 8.9 % (0.0-7.3) H 10/07/16 04:24 Eos % (Auto) 0.1 % (0.0-4.3) 10/07/16 04:24 Baso % (Auto) 0.7 % (0.0-1.8) 10/07/16 04:24 Lymph # 0.6 K/mm3 (1.2-5.4) L 10/07/16 04:24 Early # 0.3 K/mm3 (0.0-0.8) 10/07/16 04:24 Eos # 0.0 K/mm3 (0.0-0.4) 10/07/16 04:24 Baso # 0.0 K/mm3 (0.0-0.1) 10/07/16 04:24 Seg Neutrophils % 72.8 % (40.0-70.0) H 10/07/16 04:24 Seg Neutrophils # 2.6 K/mm3 (1.8-7.7) 10/07/16 04:24 POC ABG pH 7.330 (7.35-7.45) L 10/03/16 09:36 POC ABG pCO2 24.5 (35-45) L 10/03/16 09:36 POC ABG pO2 121 (80-105) H 10/03/16 09:36 POC ABG HCO3 12.9 10/03/16 09:36 POC ABG Total CO2 14 10/03/16 09:36 POC ABG O2 Sat 99 10/03/16 09:36 POC ABG Base Excess -13 10/03/16 09:36 FiO2 21 % 10/03/16 09:36 Sodium 131 mmol/L (137-145) L 10/07/16 04:24 Potassium 3.6 mmol/L (3.6-5.0) 10/07/16 04:24 Chloride 97.8 mmol/L (98-107) L 10/07/16 04:24 Carbon Dioxide 18 mmol/L (22-30) L 10/07/16 04:24 Anion Gap 19 mmol/L 10/07/16 04:24 BUN 7 mg/dL (9-20) L 10/07/16 04:24 Creatinine 0.8 mg/dL (0.8-1.5) 10/07/16 04:24 Estimated GFR > 60 ml/min 10/07/16 04:24 BUN/Creatinine Ratio 8.75 % 10/07/16 04:24 Glucose 269 mg/dL (75-100) H 10/07/16 04:24 POC Glucose 226 (70-105) H 10/07/16 11:20 Hemoglobin A1c 10.4 % (4-6) H 10/07/16 04:24 Ketones Quantitative Moderate (Negative) 10/03/16 07:54 Calcium 7.7 mg/dL (8.4-10.2) L 10/07/16 04:24 Phosphorus 3.00 mg/dL (2.5-4.5) 10/03/16 07:54 Magnesium 1.70 mg/dL (1.7-2.3) 10/03/16 07:54 Albumin 2.6 g/dL (3.9-5) L 10/04/16 07:59 Prealbumin 0.050 g/L (0.200-0.400) L 10/04/16 07:59 Urine Color Yellow (Yellow) 10/03/16 00:12 Urine Turbidity Clear (Clear) 10/03/16 00:12 Urine pH 6.0 (5.0-7.0) 10/03/16 00:12 Ur Specific [place] 1.024 (1.003-1.030) 10/03/16 00:12 Urine Protein 30 mg/dl mg/dL (Negative) 10/03/16 00:12 Urine Glucose (UA) >=500 mg/dL (Negative) 10/03/16 00:12 Urine Ketones 80 mg/dL (Negative) 10/03/16 00:12 Urine Blood Sm (Negative) 10/03/16 00:12 Urine Nitrite Neg (Negative) 10/03/16 00:12 Urine Bilirubin Neg (Negative) 10/03/16 00:12 Urine Urobilinogen < 2.0 mg/dL (<2.0) 10/03/16 00:12 Ur Leukocyte Esterase Neg (Negative) 10/03/16 00:12 Urine WBC (Auto) 2.0 /HPF (0.0-6.0) 10/03/16 00:12 Urine RBC (Auto) 3.0 /HPF (0.0-6.0) 10/03/16 00:12 Hyaline Casts 24 /LPF 10/03/16 00:12 Granular Casts 33 /LPF 10/03/16 00:12 Urine Mucus Few /HPF 10/03/16 00:12
[2016-10-07] MEDS: NACL 0.9% 1000 ML 1,000 ML IV SCH (13:45)
[2016-10-07] MEDS ORDERED: PEPCID PO NR (13:48)
--- NOTE | 2016-10-07 13:48 | Anesthesia Consultation ---
Anesthesia Consult and Med Hx Date of service: 10/07/16 - Airway Anesthetic Teeth Evaluation: Good (one molar has decay) ROM Head & Neck: Adequate Mental/Hyoid Distance: Inadequate Mallampati Class: Class III Intubation Access Assessment: Difficult - Pulmonary Exam CTA: Yes - Cardiac Exam Cardiac Exam: RRR - Pre-Operative Health Status Proposed Anesthetic Plan: General - Pulmonary Hx Smoking: No Hx Asthma: No Hx Respiratory Symptoms: No SOB: No COPD: No Hx Pneumonia: No Hx Sleep Apnea: No - Cardiovascular System Hx Coronary Artery Disease: No Hx Angina: No Hx Percutaneous Transluminal Coronary Angioplasty (PTCA): No Hx Valvular Heart Disease: No Hx Heart Murmur: No Hx Peripheral Vascular Disease: No - Central Nervous System CVA: No Hx Psychiatric Problems: No - Gastrointestinal Hx Ulcer: No (multiple infections on back and on head; had diagnosis of MRSA in past) - Endocrine Hx End Stage Renal Disease: No Hx Cirrhosis: No Hx Insulin Dependent Diabetes: Yes (uncontrolled. recent admission with DKA) Hx Hypothyroidism: No Hx Hyperthyroidism: No - Hematic Hx Anemia: Yes (current) - Other Systems Hx Alcohol Use: No Hx Substance Use: No Hx Cancer: No
[2016-10-07] MEDS ORDERED: VERSED IV NR (13:49)
[2016-10-07] MEDS ORDERED: XYLOCAINE MPF 2% ONE (14:02)
[2016-10-07] MEDS ORDERED: NACL 0.9% IR ONE (14:45)
[2016-10-07] MEDS ORDERED: NACL 0.9% 1000 ML 1,000 ML IV SCH (14:54)
--- NOTE | 2016-10-07 15:15 | Post Operative Note ---
Pre-op diagnosis: Scalp abscess Post-op diagnosis: same Procedure: I&D of scalp abscess Anesthesia: other (LMA) Surgeon: PHU HYATT Estimated blood loss: minimal Pathology: none Specimen disposition: to lab (Gram stain and C&S) Condition: stable Disposition: PACU
--- NOTE | 2016-10-07 16:14 | Post Anesthesia Evaluation ---
- Post Anesthesia Evaluation Patient Participated: Yes Airway Patent: Yes Stable Respiratory Function: Yes Nausea/Vomiting: No Temp > 96.8F: Yes Pain Manageable: Yes Adequeate Hydration: Yes Anesthesia Complications: No Block Receding Appropriately: Not Applicable Patient on Ventilator: No
[2016-10-07] MEDS: NOVOLOG SUB-Q SCH ×2 (18:51→22:43)
[2016-10-07] MEDS ORDERED: LEVEMIR SUB-Q SCH (22:00)
[2016-10-07] MEDS ORDERED: NON-FORMULARY (Insulin Glargine 15 UNITS) SUB-Q SCH (22:00)
[2016-10-08] MEDS: MORPHINE IV PRN ×2 (03:06→11:27)
[2016-10-08] MEDS: ceFAZolin 2 GM in NACL 0.9% 100 ML IV SCH ×2 (06:19→13:59)
[2016-10-08] MEDS: NOVOLOG SUB-Q SCH ×2 (08:00→13:52)
--- NOTE | 2016-10-08 09:30 | Progress Note ---
Assessment and Plan Assessment: 1) Sepsis: resolved. Secondary to skin and soft tissue infection. Blood cultures negative. 2) Multiple cutaneous abscesses to right shoulder, left scapular areas and scalp : secondary to MSSA per culture report. 3) Uncontrolled diabetes with DKA 4) History of MRSA skin infection Plan: -continue cefazolin 2 g IV q 8 hours -ok to d/c home with PCP f/u in 1-2 weeks -upon discharge will do keflex 500 mg PO q 6 hours for 14 days from today (I+D) until 10/19/16. Keflex is free at [employer]. -needs ID clinic f/u in 2-3 weeks after discharge for Staph decolonization in view of recurrence. Thank you Dr Shah for your consultation, will follow up with you. Rowena Garnica MD Infectious Diseases Specialist [facility] ([facility]) M [phone] O [phone] Subjective Date of service: 10/08/16 Principal diagnosis: MSSA skin abscesses Interval history: feels good, denies fever, chills or cold sensation. Went to the OR again yesterday for I+D of the scalp. Denies N/V/D. Current Antibiotics: Cefazolin 10/05 Previous Antibiotics: Vancomycin 10/03-10/05 Clindamycin 10/05 Micro: Blood cultures: 10/03 negative 10/05 ngtd Urine cultures: Respiratory cultures: Wound cultures: 10/03 MSSA 10/06 OR drainage + GPC 10/07 head abscess +GPC Objective - Constitutional Vitals: Vital Signs Temp Pulse Resp BP Pulse Ox 97.8 F 99 H 16 110/71 97 10/08/16 08:00 10/08/16 08:00 10/08/16 08:00 10/08/16 08:00 10/08/16 08:00 Temperature -Last 24 Hours Temperature 97.8 F Temperature 97.9 F Temperature 98.6 F Temperature 97.4 F Temperature 98.6 F Temperature 98.5 F General appearance: Present: no acute distress, well-nourished - EENT Eyes: PERRL, EOM intact ENT: hearing intact, clear oral mucosa Ears: bilateral: normal - Neck Neck: supple, normal ROM - Respiratory Respiratory effort: normal Respiratory: bilateral: CTA - Breasts Breasts: normal - Cardiovascular Rhythm: regular Heart Sounds: Present: S1 & S2. 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
--- NOTE | 2016-10-08 09:32 | Discharge Summary ---
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 Gonsalez Phone number called:: [phone] Was contact made?: Yes If yes, spoke with:: DR. Love Time called:: 13:00 Comment:: TYESHA NOTIFIED 10/05/16 13:00 Consult to Physician [CONS] Routine Consulting Provider: PHU OLMOS Reason For Exam: possible I and D Place consult to:: Dr Olmos Notified:: OFFICE Phone number called:: [phone] Was contact made?: Yes If yes, spoke with:: NEHA Time called:: 13:11 Comment:: TYESHA NOTIFIED 10/07/16 15:15 Consult to Wound/ET Nurse [CONS] Routine Reason For Exam: Bilat shoulder and scalp wounds Primary care physician: DESK ATTENDANT Hospitalization Reason for admission: DKA, abscess Condition: Undetermined Procedures: Incision and drainage of this abscess on the shoulder, back and scalp. Hospital course: This is a 30 y/o male with h/o DM type 1 presented with complaint of pain in the back and shoulders for the last several days. Patient has multiple skin lesions consistent with likely MRSA. He's simillar episodes before. Denies fevers chills but had low grade temp during admission. he also states that his blood sugars been out of control running at the 300s. On reassessment in the ER patient's blood sugar was elevated at 430. He has moderate ketones in his serum with high anion gap. He was started on an insulin drip, and getting admitted to ICU for further evaluation and management. Patient was admitted to ICU and was management for DKA according to DKA protocol. Blood culture was positive for MSSA and was treated with vancomycin and at the time of discharge he was given 2 weeks of Keflex according to ID recommendation. Incision and drainage was done by surgery. Patient's blood glucose was controlled at the time of discharge. Patient said he he has enough insulin at home and said doesn't need a prescription. Patient was hemodynamically stable at the time of discharge. Patient's medications were reviewed and updated on the time of discharge. Patient's questions and concerns were addressed at the bedside. Patient is scheduled to see ID doctor within 2 weeks. Patient was also advised to see PCP. Disposition: - TO HOME OR SELFCARE Time spent for discharge: 31 minutes - Discharge Diagnoses (1) Elevated troponin Status: Acute (2) Abscess Status: Acute (3) Cellulitis Status: Acute Qualifiers: Site of cellulitis: S Site of cellulitis of extremity: S Site of cellulitis of trunk: S Laterality: L (4) DKA (diabetic ketoacidoses) Status: Acute Qualifiers: Diabetes mellitus type: D Diabetes mellitus complication detail: D (5) Scalp abscess Status: Acute (6) Sepsis Status: Acute Qualifiers: Sepsis type: S (7) Diabetes mellitus type I Status: Chronic Qualifiers: Diabetes mellitus complication status: D Diabetes mellitus complication detail: D Diabetic retinopathy severity: D Proliferative retinopathy type: P Diabetes mellitus macular edema: D Laterality: L Chronic kidney disease stage: C Core Measure Documentation - Palliative Care Palliative Care/ Comfort Measures: Not Applicable - Core Measures Any of the following diagnoses?: none Exam - Physical Exam Narrative exam: Not in cardiopulmonary distress. The patient appeared well nourished and normally developed. Vital signs as documented. Head exam reveals abscess on his scalp. Skin multiple abscess including the back and scapula. No scleral icterus . Neck is without jugular venous distension, thyromegaly, or carotid bruits. Lungs are clear to auscultation. Cardiac exam reveals regular rate and Rhythm. First and second heart sounds normal. No murmurs, rubs or gallops. Abdominal exam reveals normal bowel sounds, no masses, no organomegaly and no aortic enlargement. Extremities are nonedematous and both femoral and pedal pulses are normal. 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 No focal weakness. - Constitutional Vitals: Temp Pulse Resp BP Pulse Ox 97.8 F 99 H 16 110/71 97 10/08/16 08:00 10/08/16 08:00 10/08/16 08:00 10/08/16 08:00 10/08/16 08:00 Plan Activity: no restrictions Diet: diabetic Follow up with: TRACI ANGEL MD [Primary Care Provider] - 3-5 Days JOSUE CAMPBELL MD [Staff Physician] - 14 Days
[2016-10-08 15:53] VITALS: BP 107/79
== END 2016-10-08 16:00 | disposition home or self-care (01) | DRG 871 ==
LOC: ED 18:36 → 3A 10-03 07:46 → CC1 10-03 09:53 → 3A 10-04 15:12
PROVIDERS: ADMIT Hospitalist; ATTEND Internal Medicine
PROC: 4A033R1 Measurement of Arterial Saturation, Peripheral, Percutaneous Approach (ICD-10-PCS; principal; 2016-10-03)
PROC: 0J9F3ZZ Drainage of Left Upper Arm Subcutaneous Tissue and Fascia, Percutaneous Approach (ICD-10-PCS; 2016-10-06)
PROC: 0J9D3ZZ Drainage of Right Upper Arm Subcutaneous Tissue and Fascia, Percutaneous Approach (ICD-10-PCS; 2016-10-06)
PROC: 0H90XZZ Drainage of Scalp Skin, External Approach (ICD-10-PCS; 2016-10-07)
DX: A41.9 Sepsis, unspecified organism (principal); E10.10 Type 1 diabetes mellitus with ketoacidosis without coma; E43 Unspecified severe protein-calorie malnutrition; L02.413 Cutaneous abscess of right upper limb; L02.811 Cutaneous abscess of head [any part, except face]; M86.8X1 Other osteomyelitis, shoulder; E87.0 Hyperosmolality and hypernatremia; B95.61 Methicillin susceptible Staphylococcus aureus infection as the cause of diseases classified elsewhere; Z88.5 Allergy status to narcotic agent; Z88.8 Allergy status to other drugs, medicaments and biological substances; Z83.3 Family history of diabetes mellitus; Z68.22 Body mass index [BMI] 22.0-22.9, adult
CPT/HCPCS: 36415; 36600; 80048; 81001; 82010; 82040; 82803; 82962; 83036; 83735; 84100; 84134; 85025; 86403; 87040; 87075; 87076; 87116; 87186; 99285; J0330; J0690; J1100; J1200; J1815; J1818; J2250; J2270; J2370; J2405; J2704; J3010; J3370; J7030; J7050

== ENCOUNTER 2016-10-11 00:03 | Inpatient (IN) | payer SELFPAY ==
[2016-10-11] MEDS ORDERED: BENADRYL IV ONE (01:43)
[2016-10-11] MEDS ORDERED: NACL 0.9% 1000 ML 1,000 ML IV ONE (01:43)
[2016-10-11] MEDS ORDERED: MORPHINE IV ONE (01:43)
--- NOTE | 2016-10-11 01:49 | Emergency Department Report ---
ED Chest Pain HPI - General Chief Complaint: Nausea/Vomiting/Diarrhea Stated Complaint: HIGH BLOOD SUGAR Time Seen by Provider: 10/11/16 01:41 Source: patient, EMS Mode of arrival: Stretcher Limitations: No Limitations - History of Present Illness Initial Comments: Patient is a 30 years old type 1 diabetes recently discharged from the ICU for DKA secondary to scalp wound infection. He presented today with some main complaint of left sided chest pain on and off for the last 2 days. Denied any fever. He checked his blood sugar at home and he was high. No other complaint at this moment. MD Complaint: chest pain -: days(s) Pain Location: left chest Severity scale (0 -10): 7 Quality: pressure re: denies: nausea, vomting - Related Data Home Medications Medication Instructions Recorded Confirmed Last Taken Insulin Glargine [Lantus VIAL] 15 units SUB-Q HS 06/18/16 10/11/16 Unknown Insulin Regular, Human [HumuLIN R] 0 unit SQ ACHS 10/03/16 10/11/16 Unknown Allergies Allergy/AdvReac Type Severity Reaction Status Date / Time codeine Allergy Hives Verified 08/14/16 07:20 ondansetron HCl [From Zofran] Allergy Hives Verified 08/14/16 07:20 hydrocodone bitartrate AdvReac Headache Verified 08/14/16 07:20 [From Lortab] Heart Score - HEART Score History: Moderately suspicious EKG: Non-specific Age: < 45 Risk factors: 1-2 risk factors Troponin: < normal limit HEART Score: 3 - Critical Actions Critical Actions: 0-3 pts:0.9-1.7%risk of adverse cardiac event.Candidate for discharge ED Review of Systems ROS: Stated complaint: HIGH BLOOD SUGAR Other details as noted in HPI Comment: All other systems reviewed and negative Constitutional: denies: chills, fever ENT: denies: ear pain, dental pain Respiratory: denies: cough, shortness of breath Cardiovascular: chest pain. denies: palpitations, dyspnea on exertion Gastrointestinal: nausea. denies: abdominal pain, vomiting, diarrhea, constipation Neurological: denies: headache, weakness, numbness, paresthesias ED Past Medical Hx - Past Medical History Previous Medical History?: Yes Hx Congestive Heart Failure: No Hx Diabetes: Yes Hx Asthma: No Hx COPD: No Hx HIV: No Additional medical history: staph infection - Surgical History Past Surgical History?: Yes Additional Surgical History: wound debridement (staph infection)--NECK AND BACK - Social History Smoking Status: Never Smoker Substance Use Type: None - Medications Home Medications: Home Medications Medication Instructions Recorded Confirmed Last Taken Type Insulin Glargine [Lantus VIAL] 15 units SUB-Q HS 06/18/16 10/11/16 Unknown History Insulin Regular, Human [HumuLIN R] 0 unit SQ ACHS 10/03/16 10/11/16 Unknown History ED Physical Exam - General Limitations: No Limitations General appearance: alert - Head Head exam: Present: other (4x4 cm scalp wound with clear edge, recent surgery. no discharge) - ENT ENT exam: Present: normal exam - Neck Neck exam: Present: normal inspection. Absent: tenderness, meningismus, full ROM - Respiratory Respiratory exam: Present: normal lung sounds bilaterally. Absent: respiratory distress, wheezes, rales, rhonchi, chest wall tenderness - Cardiovascular Cardiovascular Exam: Present: tachycardia - GI/Abdominal GI/Abdominal exam: Present: soft. Absent: distended, tenderness, guarding, rebound, rigid, normal bowel sounds, hyperactive bowel sounds, hypoactive bowel sounds, organomegaly, mass, bruit, pulsatile mass - Back Exam Back exam: Present: normal inspection. Absent: CVA tenderness (R), CVA tenderness (L) - Neurological Exam Neurological exam: Present: alert, oriented X3, CN II-XII intact - Psychiatric Psychiatric exam: Present: normal affect - Skin Skin exam: Present: warm, normal color ED Course Vital Signs 10/11/16 10/11/16 10/11/16 01:09 01:42 01:58 Temperature 98.2 F 97.7 F Pulse Rate 112 H 103 H Respiratory 18 20 20 Rate Blood Pressure 117/86 Blood Pressure 133/98 [Right] O2 Sat by Pulse 95 99 Oximetry 10/11/16 10/11/16 02:05 02:28 Temperature Pulse Rate Respiratory 20 20 Rate Blood Pressure Blood Pressure [Right] O2 Sat by Pulse 99 Oximetry - Reevaluation(s) Reevaluation #1: 10/11/16 04:[address] Mack for admission chest pain rule out PA patient does have an elevated troponin although his EKG did not show any acute changes. AICHA score - Aicha Score Age > 65: (0) No Aspirin use within the Past 7 Days: (0) No 3 or more CAD Risk Factors: (0) No 2 or more Angina events in past 24 hrs: (0) No Known CAD with more than 50% Stenosis: (0) No Elevated Cardiac Markers: (0) No ST Deviation Greater than 0.5mm: (0) No AICHA Score: 0 ED Medical Decision Making - Lab Data Result diagrams: 10/11/16 01:28 10/11/16 01:28 Critical care attestation.: If time is entered above; I have spent that time in minutes in the direct care of this critically ill patient, excluding procedure time. ED Disposition Clinical Impression: Chest pain, Elevated troponin Disposition: OP ADMIT IP TO THIS HOSP Is pt being admited?: Yes Condition: Stable Instructions: Chest Pain (ED) Referrals: PRIMARY CARE, [Primary Care Provider] - 3-5 Days
[2016-10-11 02:07] LABS: Alanine Aminotransferase 9 units/L (7-56); Albumin 2.9 g/dL (3.9-5); Albumin/Globulin Ratio 0.8 %; Alkaline Phosphatase 257 units/L (35-129); Blood Urea Nitrogen 10 mg/dL (9-20); Calcium 8.4 mg/dL (8.4-10.2); Carbon Dioxide 16 mmol/L (22-30); Glucose 291 mg/dL (75-100); Lipase 14 units/L (13-60); Total Protein 6.6 g/dL (6.3-8.2)
[2016-10-11 02:08] LABS: Anion Gap 30 mmol/L; Chloride 90.3 mmol/L (98-107); Potassium 3.5 mmol/L (3.6-5.0); Sodium 133 mmol/L (137-145)
[2016-10-11 02:21] LABS: Basophils % (Auto) 0.5 % (0.0-1.8); Eosinophils % (Auto) 0.8 % (0.0-4.3); Hematocrit 31.2 % (35.5-45.6); Hemoglobin 10.3 gm/dl (11.8-15.2); Mean Corpuscular HGB Conc 33 % (32-34); Mean Corpuscular Hemoglobin 27 pg (28-32); Mean Corpuscular Volume 80 fl (84-94); Platelet Count 515 K/mm3 (140-440); Red Blood Count 3.88 M/mm3 (3.65-5.03); Red Cell Distribution Width 15.8 % (13.2-15.2); White Blood Count 9.2 K/mm3 (4.5-11.0)
[2016-10-11 02:35] LABS: Cholesterol 122 mg/dL (50-199); HDL Cholesterol 29 mg/dL (40-59); LDL Cholesterol,Direct 58 mg/dL (50-130); Triglycerides 178 mg/dL (2-149)
[2016-10-11] MEDS ORDERED: BABY ASPIRIN PO ONE (03:31)
[2016-10-11] MEDS ORDERED: K-DUR PO ONE ×2 (04:41→06:22)
[2016-10-11] MEDS ORDERED: REGLAN IV PRN (04:41)
[2016-10-11] MEDS ORDERED: TYLENOL PO PRN (04:41)
[2016-10-11] MEDS ORDERED: ZOFRAN IV PRN (04:41)
[2016-10-11] MEDS ORDERED: D50W (25GM) Syringe IV PRN (04:42)
--- NOTE | 2016-10-11 04:50 | History and Physical Report ---
History of Present Illness Date of examination: 10/11/16 Chief complaint: Chest pains History of present illness: Patient is 30 yo man with h/o type 1 DM with multiple hospitalizations for DKA due to noncompliance, mrsa skin infection and recent MSSA carbuncles x 3 s/p I-n -D on 10/07 w/ subsequent discharge from here on 10/08/16 who presents with substernal constant moderately intense radiating across right and left side of his chest with pains started last evening without any aggravating or relieving factors associated with nausea, weakness and fatigue. Patient is still noncompliance with insulin therapy, he has not been on all is not taking long- acting insulin ages use sliding scale A1c was 10.4 on 10/07/16. Past medical history: DKA, type 1 juvenile diabetes mellitus Past surgical history: I&D skin abscesses, largest scalp abscess, one left shoulder and one right shoulder Social history: Denies smoking tobacco, alcohol abuse or illicit drugs Family history: Maternal grandmother pancreatic cancer, paternal grandmother CABG ROS: Constitutional: no weight loss, no weight gain, no chills, no sweats, + fatigue / weakness/poor appetite Ears, nose, mouth and throat: no deferred, no ear pain, no decreased hearing, no sinus pressure, no bleeding gums, no dental pain, no mouth pain, no hoarseness, no sore throat, no swelling in mouth, no post-nasal drip, no headache, no vertigo, no pain front of neck, no neck lump Cardiovascular: chest pain, lightheadedness, decreased exercise tolerance, no orthopnea, no palpitations, no rapid/irregular heart beat, no edema, no syncope , no shortness of breath, no dyspnea on exertion, no paroxysmal nocturnal dyspnea, no claudication, no phlebitis, no high blood pressure, no leg edema Respiratory: no cough with sputum, no excessive sputum, no hemoptysis, no pleurisy, no pain, no pain on inspiration, no respiratory infections, no other Gastrointestinal:+ nausea, no diarrhea, no constipation, no hematemesis, no hematochezia, no loss of appetite, no early satiety, no indigestion, no dyspepsia/bloating Genitourinary Male: no flank pain, no discharge, no urinary hesitancy, no nocturia Rectal: no incontinence, no bleeding, no itching, no discharge Musculoskeletal: no neck stiffness, no shooting arm pain, no arm numbness/ tingling, no shooting leg pain, no leg numbness/tingling, no atrophy, no limitation of motion, no fractures, no loss of height, no prior amputations, no arthritis Integumentary: no depigmentation, no dryness, no unusual bruising Neurological: no weakness, no tingling, no syncope, no vertigo, no migraines, no aphasia, no change in mentation, no changes in smell/taste, no balance difficulties, no double vision, no burning pain, no paralysis Psychiatric: hypersomnia, change in libido, irritability, no anxiety, no memory loss, no sleep disturbances, no change in appetite, no disorientation, no hallucinations, no paranoia, no hopelessness, no anxiety attacks, no confusion Endocrine: no cold intolerance, no polyphagia, no polydipsia, no polyuria, no nocturia, no proptosis, no palpatations, no high blood sugars, no low blood sugars, no fatigue Hematologic/Lymphatic: no easy bruising, no lymphedema Allergic/Immunologic: no urticaria, + rhinitis, no anaphylaxis Medications and Allergies Allergies Allergy/AdvReac Type Severity Reaction Status Date / Time codeine Allergy Hives Verified 08/14/16 07:20 ondansetron HCl [From Zofran] Allergy Hives Verified 08/14/16 07:20 hydrocodone bitartrate AdvReac Headache Verified 08/14/16 07:20 [From Lortab] Home Medications Medication Instructions Recorded Confirmed Last Taken Type Insulin Glargine [Lantus VIAL] 15 units SUB-Q HS 06/18/16 10/11/16 Unknown History Insulin Regular, Human [HumuLIN R] 0 unit SQ ACHS 10/03/16 10/11/16 Unknown History Active Meds: Active Medications Acetaminophen (Tylenol) 650 mg PO Q6H PRN PRN Reason: Non Cardiac Pain or Temp>100.5 Dextrose (D50w (25gm)) 50 ml IV PRN PRN PRN Reason: Hypoglycemia Heparin Sodium (Porcine) (Heparin) 5,000 unit SUB-Q Q12HR SHARATH Sodium Chloride (Nacl 0.9% 1000 Ml) 1,000 mls @ 100 mls/hr IV DIRECT SHARATH Insulin Aspart (Novolog) 0 units SUB-Q Q4HR SHARATH PRN Reason: Protocol Metoclopramide HCl (Reglan) 10 mg IV Q8H PRN PRN Reason: Nausea And Vomiting Ondansetron HCl (Zofran) 4 mg IV Q4H PRN PRN Reason: N/V unrelieved by Reglan Pantoprazole Sodium (Protonix) 40 mg PO QDAY SHARATH Potassium Chloride (K-Dur) 40 meq PO ONCE ONE Stop: 10/11/16 04:42 Exam - Physical Exam Narrative exam: GEN: Thin frail chronically debilitated young man NAD, AWAKE, ALERT, ORIENTATED x 3 HEENT: NCAT, PERRL, EOMI, OP CLEAR NECK: SUPPLE, NO THYROMEGALY, NO JVD, NO LAD CVS: Regular tachycardia NORMAL S1S2 LUNGS/CHEST: CTA B, NORMAL CHEST EXPANSION B, GOOD AIR ENTRY B ABD: SOFT, NTND, GBS, NO REBOUND OR GUARDING EXT/SKIN: Unkempt large crater ulcer greater than half dollar size of his head, half dollar size crater ulcer with dirty gauze each side of his shoulders MSK: FROM X 4 EXTREMITIES NEURO: CN 2-12 GROSSLY INTACT, NO FOCAL DEFICITS PSY: CALM - Constitutional Vitals: Temp Pulse Resp BP Pulse Ox 97.7 F 103 H 20 133/98 99 10/11/16 01:42 10/11/16 01:42 10/11/16 02:28 10/11/16 01:42 10/11/16 02:05 Results - Labs CBC & Chem 7: 10/11/16 01:28 10/11/16 01:28 Labs: Abnormal lab results 10/11/16 10/11/16 10/11/16 Range/Units 01:28 01:28 01:28 Hgb 10.3 L (11.8-15.2) gm/dl Hct 31.2 L (35.5-45.6) % MCV 80 L (84-94) fl MCH 27 L (28-32) pg RDW 15.8 H (13.2-15.2) % Plt Count 515 H (140-440) K/mm3 Seg Neutrophils % 77.8 H (40.0-70.0) % VBG pH 7.299 L (7.320-7.420) Sodium 133 L (137-145) mmol/L Potassium 3.5 L (3.6-5.0) mmol/L Chloride 90.3 L (98-107) mmol/L Carbon Dioxide 16 L (22-30) mmol/L Glucose 291 H (75-100) mg/dL Alkaline Phosphatase 257 H (35-129) units/L Troponin T 0.050 H (0.00-0.029) ng/mL Albumin 2.9 L (3.9-5) g/dL Triglycerides 178 H (2-149) mg/dL HDL Cholesterol 29 L (40-59) mg/dL Assessment and Plan Patient is 30 yo man with h/o type 1 DM with multiple hospitalizations for DKA due to noncompliance, mrsa skin infection and recent MSSA carbuncles x 3 s/p I-n -D on 10/07 w/ subsequent discharge from here on 10/08/16 who presents with substernal constant moderately intense radiating across right and left side of his lower chest/abdomen with pains that started last evening without any aggravating or relieving factors associated with nausea, weakness and fatigue. Patient is still noncompliance with insulin therapy, he has not been on long acting insulin. He use sliding scale insulin, his A1c was 10.4 on 10/07/16. -Chest pain, atypical: EKG sinus tachy, nonspecific changes with mildly elevated troponin 0.05 (h/o elevated troponin in the past), get stress test, echo and consult Cardiology -3 skin abscesses status post I&D: Consult wound care and apply wet-to-dry dressing -Uncontrolled type 1 diabetes mellitus: Start sliding scale, nothing by mouth for stress tests -Hypokalemia: Replace and continue to monitor -Anemia of chronic disease: Continue to monitor closely -Malnutrition: Consult dietitian -Noncompliance: Counseling on compliance -Acidosis: Treat the hyperglycemia -DVT prophylaxis: Subcutaneous heparin
[2016-10-11] MEDS ORDERED: NOVOLOG SUB-Q SCH (06:00)
[2016-10-11] MEDS ORDERED: LEXISCAN IV ONE ×2 (08:05→08:16)
--- NOTE | 2016-10-11 09:21 | XRay Report ---
AP CHEST: HISTORY: chest pain AP view of the chest demonstrates a normal mediastinal and cardiac contour with clear lungs and normal bony and soft tissue structures. IMPRESSION: No acute cardiopulmonary process.
--- NOTE | 2016-10-11 11:24 | Consultation ---
History of Present Illness Consult date: 10/11/16 Consult reason: chest pain History of present illness: This is a 30-year-old gentleman who is known to have type 1 diabetes mellitus. Patient is seen for evaluation of chest pain. Yesterday he was admitted with the anterior chest discomfort, sometimes across the chest no specific precipitating factors were noted. Today his chest discomfort is better. Patient is a nonsmoker. No history of hypertension. No prior history of congestive heart failure or myocardial infarction. No previous history of chest pain to indicate angina pectoris. Patient is quite noncompliant with his medications. He apparently had multiple hospitalizations with DKA and recently admitted with MRSA and he apparently had an episode of MRSA one year ago also. Past History Past Medical History: diabetes (nonsmoker and nonalcoholic.) Medications and Allergies Allergies Allergy/AdvReac Type Severity Reaction Status Date / Time codeine Allergy Hives Verified 08/14/16 07:20 ondansetron HCl [From Zofran] Allergy Hives Verified 08/14/16 07:20 hydrocodone bitartrate AdvReac Headache Verified 08/14/16 07:20 [From Lortab] Home Medications Medication Instructions Recorded Confirmed Last Taken Type Insulin Glargine [Lantus VIAL] 15 units SUB-Q HS 06/18/16 10/11/16 Unknown History Insulin Regular, Human [HumuLIN R] 0 unit SQ ACHS 10/03/16 10/11/16 Unknown History Active Meds: Active Medications Acetaminophen (Tylenol) 650 mg PO Q6H PRN PRN Reason: Non Cardiac Pain or Temp>100.5 Dextrose (D50w (25gm)) 50 ml IV PRN PRN PRN Reason: Hypoglycemia Heparin Sodium (Porcine) (Heparin) 5,000 unit SUB-Q Q12HR SHARATH Sodium Chloride (Nacl 0.9% 1000 Ml) 1,000 mls @ 100 mls/hr IV DIRECT SHARATH Insulin Aspart (Novolog) 5 units SUB-Q AC SHARATH Insulin Aspart (Novolog) 0 units SUB-Q ACHS SHARATH PRN Reason: Protocol Insulin Detemir (Levemir) 15 units SUB-Q QHS SHARATH Metoclopramide HCl (Reglan) 10 mg IV Q8H PRN PRN Reason: Nausea And Vomiting Morphine Sulfate (Morphine) 2 mg IV Q4H PRN PRN Reason: Pain , Severe (7-10) Pantoprazole Sodium (Protonix) 40 mg PO QDAY SHARATH Review of Systems Constitutional: other ( patient is complaining of fatigue.) Ears, nose, mouth and throat: other (no acute abnormalities) Cardiovascular: chest pain Respiratory: other (no symptoms) Gastrointestinal: other (no abdominal pain nausea or vomiting) Musculoskeletal: other (complains of fatigue) Neurological: other (no history of cerebrovascular accident or convulsive disorder) Endocrine: other (patient is known to have diabetes with episodes of DKA and medication noncompliance that) Physical Examination Vital Signs Temp Pulse Resp BP Pulse Ox 98.2 F 112 H 18 117/86 95 10/11/16 01:09 10/11/16 01:09 10/11/16 01:09 10/11/16 01:09 10/11/16 01:09 General appearance: no acute distress, other (patient appears to be chronically ill and debilitated but in no acute distress.) Neck: Positive: neck supple Cardiac: Positive: Reg Rate and Rhythm, Regular Rhythm Lungs: Positive: clear to auscultation Abdomen: Positive: Soft Skin: Positive: Other (patient has a wound on the head with and dressing on) Extremities: Present: Other (no edema or calf tenderness) Results 10/11/16 01:28 10/11/16 01:28 EKG interpretations - Telemetry EKG Rhythm: Sinus Rhythm - EKG Sinus rhythms and dysrhythmias: sinus rhythm Assessment and Plan This 30-year-old gentleman known to have type 1 diabetes is seen for cardiac evaluation. #1. Chest pain Patient has somewhat atypical chest discomfort. EKG is noted to be within normal limits. A stress thallium test is done today and this is noted to be negative for ischemia. Echocardiogram is pending #2. Diabetes #3. MRSA #4. Abnormal cardiac enzymes doubt myocardial infarction. Patient will be monitored and followed with you. His chest discomfort is improving. Mildly abnormal cardiac enzymes noted of questionable significance doubt cardiac etiology - Patient Problems (1) Chest pain Current Visit: Yes Status: Acute Qualifiers: Chest pain type: C Ischemic chest pain type: I (2) Elevated troponin Current Visit: Yes Status: Acute
[2016-10-11] MEDS: NOVOLOG SUB-Q SCH ×5 (12:26→22:08)
[2016-10-11] MEDS: MORPHINE IV PRN ×2 (12:33→19:30)
[2016-10-11] MEDS: PROTONIX PO SCH (12:33)
--- NOTE | 2016-10-11 12:55 | Treadmill Report ---
STRESS THALLIUM TEST The patient was brought to the Cardiology lab and a nuclear stress test is performed by administering Lexiscan. The patient tolerated the procedure well. Post-stress images revealed fairly homogeneous distribution of the isotope with no significant reversible defects to indicate definite ischemia. Accompanying gated study shows excellent systolic function with a calculated ejection fraction of 81%. IMPRESSION: Dual isotope study is negative for significant reversible defects to indicate ischemia. Accompanying gated study shows good systolic function with no wall motion abnormalities. Calculated ejection fraction is noted to be 81%. Suggest clinical correlation. JOB# [id number] KBM/NTS
[2016-10-11] MEDS ORDERED: NON-FORMULARY (Insulin Glargine 15 UNITS) SUB-Q SCH (22:00)
[2016-10-11] MEDS ORDERED: LEVEMIR SUB-Q SCH (22:00)
[2016-10-11] MEDS: NACL 0.9% 1000 ML 1,000 ML IV SCH (22:11)
[2016-10-12] MEDS: MORPHINE IV PRN (03:16)
[2016-10-12] MEDS: NACL 0.9% 1000 ML 1,000 ML IV SCH (07:12)
--- NOTE | 2016-10-12 07:21 | Admit Criteria Form ---
Admission Criteria Documentation: ANGINA Clinical Indications for Admission to Inpatient Care (Place 'X' for any and all applicable criteria): Admission is indicated for suspected angina (e.g, chest pain pattern, angina- equivalent symptom, or other finding suggesting unstable angina) with ANY ONE of the following(1)(2)(3)(4)(5): [ ]I. Angina needing acute intervention as indicated by ALL of the following ( 11)(12): [ ]a) Unstable angina is present as indicated by angina that is ANY ONE of the following: [ ]i) New onset [ ]ii) Nocturnal [ ]iii) Prolonged at rest [ ]iv) Progressive [ ]b) Angina warrants acute intervention as indicated by ANY ONE of the following: [ ]i) Recurrent angina (e.g, not responding as previously to treatment) [ ]ii) Angina at rest or with low-level activities despite initial medical therapy [ ]iii) New or presumably new ST-segment depression on ECG [ ]iv) Signs or symptoms of heart failure (eg, dyspnea, pulmonary edema) [ ]v) New or worsening mitral regurgitation [ ]vi) Hemodynamic instability [ ]vii) Dangerous arrhythmia (eg, sustained ventricular tachycardia) [ ]viii) History of percutaneous coronary intervention within 6 months [ ]ix) History of coronary artery bypass graft surgery [ ]x) AICHA risk score of 2 or greater[A] [ ]xi) History of Diabetes(14) [ ]xii) High-risk cardiac ischemia findings on noninvasive testing (e.g, echocardiogram, treadmill testing, nuclear scan) [ ]xiii) Chronic renal insufficiency (ie, estimated GFR less than 60 mL/min/1.732m) [ ]xiv) Left ventricular ejection fraction less than 40% [ X]II. Evidence of ME (e.g, cardiac biomarkers positive, ST-segment elevation on ECG). Also use Myocardial Infarction. Extended stay beyond goal length of stay may be needed for (1)(26): [ ]a) Intravascular procedural complications such as acute vessel closure, stent malposition, or vessel dissection(27) [ ]b) Extravascular procedural complications such as retroperitoneal hematoma, pericardial effusion, or cardiac tamponade [ ]c) Entry site complications causing bleeding, hematoma, or distal ischemia and requiring ongoing monitoring, surgical repair, or surgical thrombectomy(28) [ ]d) Heart failure [ ]e) Dangerous arrhythmia [ ]f) Hemodynamic instability with persisting symptoms after intensive medical management, or recurring severe prolonged symptoms [ ]g) Postprocedural myocardial infarction or acute renal failure The original [facility] [employer] content created by [facility] has been revised. The portions of the content which have been revised are identified through the use of italic text or in bold, and [facility] has neither reviewed nor approved the modified material. All other unmodified content is copyright [facility]. Please see references footnoted in the original [facility] [employer] edition 2016 Admission Criteria Met: Yes
--- NOTE | 2016-10-12 07:30 | Vascular Lab Report ---
LOWER EXTREMITY VENOUS DUPLEX: REASON FOR EXAM: Edema of the lower extremities. COMMENTS ON THE RIGHT: All veins visualized are freely compressible without evidence of internal echogenicity. Flow is spontaneous and phasic throughout. COMMENTS ON THE LEFT: All veins visualized are freely compressible without evidence of internal echogenicity. Flow is spontaneous and phasic throughout. IMPRESSION: No evidence of acute or chronic deep venous thrombosis in either lower extremity.
[2016-10-12 07:39] LABS: Hematocrit 23.7 % (35.5-45.6); Hemoglobin 7.7 gm/dl (11.8-15.2); Mean Corpuscular HGB Conc 32 % (32-34); Mean Corpuscular Volume 80 fl (84-94); Platelet Count 360 K/mm3 (140-440); Red Blood Count 2.97 M/mm3 (3.65-5.03); Red Cell Distribution Width 15.7 % (13.2-15.2)
[2016-10-12 07:59] LABS: Mean Corpuscular Hemoglobin 26 pg (28-32)
[2016-10-12 08:14] LABS: BUN/Creatinine Ratio 6.66; Blood Urea Nitrogen 4 mg/dL (9-20); Calcium 7.6 mg/dL (8.4-10.2); Carbon Dioxide 25 mmol/L (22-30); Chloride 101.8 mmol/L (98-107); Glucose 100 mg/dL (75-100); Potassium 3.1 mmol/L (3.6-5.0); Sodium 140 mmol/L (137-145)
[2016-10-12 08:21] LABS: Anion Gap 16 mmol/L
[2016-10-12] MEDS ORDERED: K-DUR PO ONE (09:04)
--- NOTE | 2016-10-12 09:09 | Discharge Summary ---
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 Patient is still noncompliance with insulin therapy, he has not been on all is not taking long- acting insulin ages use sliding scale A1c was 10.4 on 10/07/16. ACS was ruled out by negative troponins, he went on to have an MPI that was negative for ischemia. Dopplers were negative for DVT, and he went on to have CTA of his chest that was negative for PE, He was counseled on improved compliance with Insulin and he verbalized understanding. He did have hyperglycemia on admission , but it very quickly corrected with insulin. He did have a pericardial effusion which was asymptomatic at time of dc. He is to [facility] with [facility] for further management of this Diagnosis Chest pain due to GERD GERD IDDM type 1, uncontrolled -Hypokalemia: -Anemia of chronic disease: C -Moderate Malnutrition -Noncompliance to medical therapy metabolic acidosis Pericardial effusion Disposition: DC-01 TO HOME OR SELFCARE Time spent for discharge: 33 minutes Core Measure Documentation - Palliative Care Palliative Care/ Comfort Measures: Not Applicable - Core Measures Any of the following diagnoses?: none Exam - Constitutional Vitals: Temp Pulse Resp BP Pulse Ox 97.7 F 92 H 19 114/82 98 10/12/16 06:03 10/12/16 06:03 10/12/16 06:03 10/12/16 06:03 10/12/16 06:03 General appearance: Present: no acute distress, well-nourished - EENT Eyes: Present: PERRL ENT: hearing intact, clear oral mucosa - Neck Neck: Present: supple, normal ROM - Respiratory Respiratory effort: normal Respiratory: bilateral: CTA - Cardiovascular Heart Sounds: Present: S1 & S2. Absent: rub, click - Extremities Extremities: pulses symmetrical, No edema Peripheral Pulses: within normal limits - Abdominal General gastrointestinal: Present: soft, non-tender, non-distended, normal bowel sounds Male genitourinary: Present: normal - Integumentary Integumentary: Present: clear, warm, dry - Musculoskeletal Musculoskeletal: gait normal, strength equal bilaterally - Psychiatric Psychiatric: appropriate mood/affect, intact judgment & insight - Neurologic Neurologic: CNII-XII intact, moves all extremities Plan Follow up with: SINGH REYNOLDS MD [Staff Physician] - 7 Days PRIMARY CARE, [Primary Care Provider] - 3-5 Days Prescriptions: Insulin NPH/Regular [Novolin 70/30] 8 unit SQ BIDDIAB #1 vial Pantoprazole [Protonix TAB] 40 mg PO QDAY #30 tablet
[2016-10-12] MEDS ORDERED: HEPARIN SUB-Q SCH (10:00)
--- NOTE | 2016-10-12 11:01 | Progress Note ---
Assessment and Plan Assessment: #1. Chest pain Currently resolved. Patient had somewhat atypical chest discomfort. EKG is noted to be within normal limits. A stress thallium test done on this admission noted to be negative for ischemia. #2. Diabetes #3. MRSA #4. Abnormal cardiac enzymes doubt myocardial infarction. #5. Anemia - of chronic disease per primary #6. Hypokalemia #&. Elevated DDimer - BLE venous duplex negative for VTE. Plan: Echo reviewed - EF 60 - 65%, trace MR, trace TR, minimal circumferential pericardial effusion, large pleural effusion. Recommend primary to replete serum K+ PRN to maintain serum K+ ~4. Currently stable cardiac status. Pt may discharge home from cardiology standpoint. Consider repeat echo for reassessment of pericardial effusion as OP. Recommend follow up in our office with Sintia Manuel NP, within 1-2 weeks of hospital discharge ([phone]). The patient has been seen in conjunction with Dr. Taylor who agrees with the assessment and plan of care. Subjective Date of service: 10/12/16 Principal diagnosis: chest pain, atypical Interval history: Patient resting comfortably in bed. No complaints. Awaiting discharge home today. Vital signs stable. Objective Last Vital Signs Temp 97.7 F 10/12/16 08:30 Pulse 90 10/12/16 08:30 Resp 18 10/12/16 08:30 BP 126/81 10/12/16 08:30 Pulse Ox 98 10/12/16 10:00 - Physical Examination General: Appears Well, No Apparent Distress Neck: Positive: neck supple Cardiac: Positive: Reg Rate and Rhythm, S1/S2 Lungs: Positive: clear to auscultation Neuro: Positive: Grossly Intact, Cranial Nerve 2-12 Intact Abdomen: Positive: Soft Skin: Positive: Other (patient has a wound on the head with and dressing on and bilateral shoulder wounds with dressing on) Musculoskeletal: No Fluid Collection, No Pain, Normal Range of Motion Extremities: Present: Other (no edema or calf tenderness). Absent: edema - Labs and Meds CBC 10/12/16 Range/Units 06:53 WBC 7.0 (4.5-11.0) K/mm3 RBC 2.97 L (3.65-5.03) M/mm3 Hgb 7.7 L (11.8-15.2) gm/dl Hct 23.7 L D (35.5-45.6) % Plt Count 360 (140-440) K/mm3 Comprehensive Metabolic Panel 10/12/16 Range/Units 06:53 Sodium 140 D (137-145) mmol/L Potassium 3.1 L (3.6-5.0) mmol/L Chloride 101.8 (98-107) mmol/L Carbon Dioxide 25 D (22-30) mmol/L BUN 4 L (9-20) mg/dL Creatinine 0.6 L (0.8-1.5) mg/dL Glucose 100 (75-100) mg/dL Calcium 7.6 L (8.4-10.2) mg/dL - Telemetry EKG Rhythm: Sinus Rhythm - EKG Sinus rhythms and dysrhythmias: sinus rhythm
[2016-10-12] MEDS: NOVOLOG SUB-Q SCH ×6 (11:18→17:22)
[2016-10-12] MEDS: PROTONIX PO SCH (11:18)
[2016-10-12] MEDS ORDERED: NACL ONE (17:47)
--- NOTE | 2016-10-12 20:22 | Cat Scan Report ---
FINAL REPORT EXAM: CT ANGIO CHEST HISTORY: chest pain TECHNIQUE: Serial axial images through the chest during intravenous administration of 100 milliliters Omnipaque 300 contrast with coronal and sagittal and oblique reconstruction PRIORS: CT chest from 05/07/2016 FINDINGS: There are large bilateral pleural effusions with associated compressive atelectasis. No abnormal mass or adenopathy is identified. The heart measures approximately 11.6 centimeters in length. No abnormal filling defects are identified in the pulmonary arteries. Low-density ascites is seen in the perihepatic and perisplenic spaces. No acute osseous abnormality is identified. There stranding in the subcutaneous fat of the chest wall. IMPRESSION: 1. Large bilateral pleural effusion with associated compressive atelectasis. Superimposed infection is not excluded. 2. No definite acute pulmonary embolism is identified. 3. Low-density ascites is noted. This is incompletely evaluated this study. 4. Stranding is seen in the subcutaneous fat of the chest wall. This may indicate edema.
[2016-10-12 21:39] VITALS: BP 141/103
== END 2016-10-12 21:00 | disposition home or self-care (01) | DRG 392 ==
LOC: ED 00:03 → 4A 04:15
PROVIDERS: ADMIT Internal Medicine; ATTEND Internal Medicine
DX: K21.9 Gastro-esophageal reflux disease without esophagitis (principal); E44.0 Moderate protein-calorie malnutrition; I31.3 Pericardial effusion (noninflammatory); R07.9 Chest pain, unspecified; E10.9 Type 1 diabetes mellitus without complications; E87.6 Hypokalemia; D63.8 Anemia in other chronic diseases classified elsewhere; Z68.23 Body mass index [BMI] 23.0-23.9, adult; Z80.0 Family history of malignant neoplasm of digestive organs; Z91.19 Patient's noncompliance with other medical treatment and regimen; Z86.14 Personal history of Methicillin resistant Staphylococcus aureus infection; Z88.6 Allergy status to analgesic agent; Z88.8 Allergy status to other drugs, medicaments and biological substances
CPT/HCPCS: 36415; 71010; 71275; 78452; 80048; 80053; 80061; 82805; 82962; 83690; 83735; 84484; 85025; 85027; 85379; 93005; 93010; 93017; 93306; 93970; A9502; J1200; J1815; J1818; J2270; J2785; J7030; Q9967

== ENCOUNTER 2016-11-06 20:15 | Inpatient (IN) | payer OTHER ==
[2016-11-06] MEDS ORDERED: NACL 0.9% 1000 ML 1,000 ML IV ONE ×3 (22:31→22:33)
[2016-11-06] MEDS ORDERED: REGLAN IV ONE (22:31)
[2016-11-06] MEDS ORDERED: BENADRYL IV ONE (22:31)
[2016-11-06] MEDS ORDERED: MORPHINE IV ONE (22:31)
[2016-11-06] MEDS ORDERED: D50W (25GM) Syringe IV PRN (22:33)
--- NOTE | 2016-11-06 22:55 | Emergency Department Report ---
ED General Adult HPI - General Chief complaint: Hyperglycemia Stated complaint: NAUSEA/DIZZINESS/WEAKNESS Time Seen by Provider: 11/06/16 21:40 Source: EMS Mode of arrival: Stretcher Limitations: No Limitations - History of Present Illness Initial comments: 31-year-old male with past medical history of independent Diabetes, MRSA skin infections, and multiple hospitalizations for DKA secondary to medication noncompliance presents to the hospital with hyperglycemia and generalized weakness. Patient has been noncompliant with his insulin for 2 days because " he felt bad". Patient has a persistent right shoulder wound and scalp wound from recent MRSA infection. Faint of constant throbbing and sharp anterior chest pain that includes the entire chest. Pain is worse with palpation. Shortness of breath reported. Patient denies nausea, vomiting, soft pain, fever. Intermittent cough reported Patient had a MPI stress test during recent admission in September that was negative for ischemia. Head Doppler study negative for DVT bilaterally and a CTA of the chest was negative for the PE. Severity scale (0 -10): 8 - Related Data Previous Rx's Medication Instructions Recorded Last Taken Type Insulin NPH/Regular [Novolin 70/30] 8 unit SQ BIDDIAB #1 vial 10/12/16 Unknown Rx Pantoprazole [Protonix TAB] 40 mg PO QDAY #30 tablet 10/12/16 Unknown Rx Allergies Allergy/AdvReac Type Severity Reaction Status Date / Time codeine Allergy Hives Verified 08/14/16 07:20 ondansetron HCl [From Zofran] Allergy Hives Verified 08/14/16 07:20 hydrocodone bitartrate AdvReac Headache Verified 08/14/16 07:20 [From Lortab] ED Review of Systems ROS: Stated complaint: NAUSEA/DIZZINESS/WEAKNESS Other details as noted in HPI Comment: All other systems reviewed and negative Other: Constitutional: No fevers chills Eyes: No eye pain visual changes or discharge ENT: No ear pain or throat pain Neck: Denies pain Respiratory: Denies cough wheezing Cardiovascular: Denies palpitations, syncope GI: Denies abdominal pain, nausea, vomiting, diarrhea : Denies dysuria Musculoskeletal: Denies back pain Skin: per hpi Neurologic: Denies headache, numbness, weakness Psychiatric: Denies suicidal ideation, hallucinations ED Past Medical Hx - Past Medical History Hx Congestive Heart Failure: No Hx Diabetes: Yes Hx Asthma: No Hx COPD: No Hx HIV: No Additional medical history: staph infection - Surgical History Additional Surgical History: wound debridement (staph infection)--NECK AND BACK - Social History Smoking Status: Never Smoker Substance Use Type: None - Medications Home Medications: Home Medications Medication Instructions Recorded Confirmed Last Taken Type Insulin NPH/Regular [Novolin 70/30] 8 unit SQ BIDDIAB #1 vial 10/12/16 Unknown Rx Pantoprazole [Protonix TAB] 40 mg PO QDAY #30 tablet 10/12/16 Unknown Rx ED Physical Exam - General Limitations: No Limitations - Other Other exam information: General: Thin, frail appearing Head exam: Atraumatic, normocephalic Eyes exam: Normal appearance ENT: Dry mucous membranes Neck exam: Normal inspection, full range of motion, no meningismus nontender Respiratory exam: Tachypnea, Kussmal's respirations, no wheezing, rales, or crackles. Generalized anterior chest all tenderness Cardiovascular: Tachycardic regular rhythm Abdomen: Soft, nondistended, and nontender, with normal bowel sounds, no rebound, or guarding Extremity: Full range of motion normal inspection no deformity, no calf tenderness or edema Back: Normal Inspection, full range of motion, no tenderness Neurologic: Alert, oriented x3, cranial nerves intact, no motor or sensory deficit Psychiatric: normal affect, normal mood Skin: Right shoulder 4 x 4 centimeter ulceration with green purulent drainage. 5 x 2 cm scalp lesion at the top of the head without drainage ED Course Vital Signs 11/06/16 11/06/16 11/06/16 22:10 22:16 22:30 Temperature Pulse Rate 130 H 129 H Respiratory 26 H 21 22 Rate Blood Pressure 103/56 110/72 Blood Pressure [Left] O2 Sat by Pulse Oximetry 11/06/16 11/06/16 11/06/16 22:38 22:41 22:42 Temperature 97.5 F L Pulse Rate 133 H 130 H Respiratory 31 H 26 H 26 H Rate Blood Pressure Blood Pressure 115/70 [Left] O2 Sat by Pulse 98 98 Oximetry 11/06/16 11/06/16 11/06/16 22:45 23:00 23:15 Temperature Pulse Rate 130 H 128 H 124 H Respiratory 24 25 H 21 Rate Blood Pressure 103/66 111/66 113/56 Blood Pressure [Left] O2 Sat by Pulse 99 Oximetry 11/06/16 11/06/16 11/07/16 23:30 23:45 00:00 Temperature Pulse Rate 121 H 118 H 117 H Respiratory 17 13 14 Rate Blood Pressure 101/56 99/53 104/56 Blood Pressure [Left] O2 Sat by Pulse Oximetry 11/07/16 11/07/16 11/07/16 00:15 00:30 00:45 Temperature Pulse Rate 113 H 109 H 107 H Respiratory 13 11 L 10 L Rate Blood Pressure 97/55 105/52 94/58 Blood Pressure [Left] O2 Sat by Pulse Oximetry ED Medical Decision Making - Lab Data Result diagrams: 11/06/16 Unknown 11/07/16 00:10 Lab Results 11/06/16 11/06/16 11/06/16 Range/Units 22:31 22:35 23:29 WBC (4.5-11.0) K/mm3 RBC (3.65-5.03) M/mm3 Hgb (11.8-15.2) gm/dl Hct (35.5-45.6) % MCV (84-94) fl MCH (28-32) pg MCHC (32-34) % RDW (13.2-15.2) % Plt Count (140-440) K/mm3 Lymph % (Auto) (13.4-35.0) % [place] % (Auto) (0.0-7.3) % Eos % (Auto) (0.0-4.3) % Baso % (Auto) (0.0-1.8) % Lymph # (1.2-5.4) K/mm3 [place] # (0.0-0.8) K/mm3 Eos # (0.0-0.4) K/mm3 Baso # (0.0-0.1) K/mm3 Seg Neutrophils % (40.0-70.0) % Seg Neutrophils # (1.8-7.7) K/mm3 VBG pH (7.320-7.420) Sodium (137-145) mmol/L Potassium (3.6-5.0) mmol/L Chloride (98-107) mmol/L Carbon Dioxide (22-30) mmol/L Anion Gap mmol/L BUN (9-20) mg/dL Creatinine (0.8-1.5) mg/dL Estimated GFR ml/min BUN/Creatinine Ratio % Glucose (75-100) mg/dL POC Glucose > 500 H (70-105) Lactic Acid 2.00 (0.7-2.0) mmol/L Calcium (8.4-10.2) mg/dL Phosphorus (2.5-4.5) mg/dL Magnesium (1.7-2.3) mg/dL Total Creatine Kinase (55-170) units/L CK-MB (CK-2) (0.0-4.0) ng/mL CK-MB (CK-2) Rel Index (0-4) Urine Bilirubin Neg (Negative) Urine RBC (Auto) 3.0 (0.0-6.0) /HPF 11/06/16 11/06/16 11/06/16 Range/Units Unknown Unknown Unknown WBC 12.7 H (4.5-11.0) K/mm3 RBC 4.23 (3.65-5.03) M/mm3 Hgb 10.9 L D (11.8-15.2) gm/dl Hct 35.8 D (35.5-45.6) % MCV 85 (84-94) fl MCH 26 L (28-32) pg MCHC 30 L (32-34) % RDW 16.9 H (13.2-15.2) % Plt Count 299 (140-440) K/mm3 Lymph % (Auto) 7.7 L (13.4-35.0) % [place] % (Auto) 7.3 (0.0-7.3) % Eos % (Auto) 0.1 (0.0-4.3) % Baso % (Auto) 0.2 (0.0-1.8) % Lymph # 1.0 L (1.2-5.4) K/mm3 [place] # 0.9 H (0.0-0.8) K/mm3 Eos # 0.0 (0.0-0.4) K/mm3 Baso # 0.0 (0.0-0.1) K/mm3 Seg Neutrophils % 84.7 H (40.0-70.0) % Seg Neutrophils # 10.8 H (1.8-7.7) K/mm3 VBG pH 7.043 L* (7.320-7.420) Sodium 128 L D (137-145) mmol/L Potassium 5.7 H D (3.6-5.0) mmol/L Chloride 87.0 L (98-107) mmol/L Carbon Dioxide 3 L* D (22-30) mmol/L Anion Gap 44 mmol/L BUN 27 H (9-20) mg/dL Creatinine 1.6 H D (0.8-1.5) mg/dL Estimated GFR 51 ml/min BUN/Creatinine Ratio 16.87 % Glucose 669 H* (75-100) mg/dL POC Glucose (70-105) Lactic Acid (0.7-2.0) mmol/L Calcium 8.8 D (8.4-10.2) mg/dL Phosphorus (2.5-4.5) mg/dL Magnesium (1.7-2.3) mg/dL Total Creatine Kinase (55-170) units/L CK-MB (CK-2) (0.0-4.0) ng/mL CK-MB (CK-2) Rel Index (0-4) Urine Bilirubin (Negative) Urine RBC (Auto) (0.0-6.0) /HPF 11/06/16 11/06/16 11/07/16 Range/Units Unknown Unknown 00:10 WBC (4.5-11.0) K/mm3 RBC (3.65-5.03) M/mm3 Hgb (11.8-15.2) gm/dl Hct (35.5-45.6) % MCV (84-94) fl MCH (28-32) pg MCHC (32-34) % RDW (13.2-15.2) % Plt Count (140-440) K/mm3 Lymph % (Auto) (13.4-35.0) % [place] % (Auto) (0.0-7.3) % Eos % (Auto) (0.0-4.3) % Baso % (Auto) (0.0-1.8) % Lymph # (1.2-5.4) K/mm3 [place] # (0.0-0.8) K/mm3 Eos # (0.0-0.4) K/mm3 Baso # (0.0-0.1) K/mm3 Seg Neutrophils % (40.0-70.0) % Seg Neutrophils # (1.8-7.7) K/mm3 VBG pH (7.320-7.420) Sodium (137-145) mmol/L Potassium (3.6-5.0) mmol/L Chloride 86.0 L (98-107) mmol/L Carbon Dioxide (22-30) mmol/L Anion Gap mmol/L BUN 17 (9-20) mg/dL Creatinine (0.8-1.5) mg/dL Estimated GFR ml/min BUN/Creatinine Ratio % Glucose (75-100) mg/dL POC Glucose (70-105) Lactic Acid (0.7-2.0) mmol/L Calcium (8.4-10.2) mg/dL Phosphorus 6.40 H D (2.5-4.5) mg/dL Magnesium 2.20 (1.7-2.3) mg/dL Total Creatine Kinase 18 L (55-170) units/L CK-MB (CK-2) 4.7 H (0.0-4.0) ng/mL CK-MB (CK-2) Rel Index 26.1 H (0-4) Urine Bilirubin (Negative) Urine RBC (Auto) (0.0-6.0) /HPF 11/07/16 Range/Units 00:13 WBC (4.5-11.0) K/mm3 RBC (3.65-5.03) M/mm3 Hgb (11.8-15.2) gm/dl Hct (35.5-45.6) % MCV (84-94) fl MCH (28-32) pg MCHC (32-34) % RDW (13.2-15.2) % Plt Count (140-440) K/mm3 Lymph % (Auto) (13.4-35.0) % [place] % (Auto) (0.0-7.3) % Eos % (Auto) (0.0-4.3) % Baso % (Auto) (0.0-1.8) % Lymph # (1.2-5.4) K/mm3 [place] # (0.0-0.8) K/mm3 Eos # (0.0-0.4) K/mm3 Baso # (0.0-0.1) K/mm3 Seg Neutrophils % (40.0-70.0) % Seg Neutrophils # (1.8-7.7) K/mm3 VBG pH (7.320-7.420) Sodium (137-145) mmol/L Potassium (3.6-5.0) mmol/L Chloride (98-107) mmol/L Carbon Dioxide (22-30) mmol/L Anion Gap mmol/L BUN (9-20) mg/dL Creatinine (0.8-1.5) mg/dL Estimated GFR ml/min BUN/Creatinine Ratio % Glucose (75-100) mg/dL POC Glucose 482 H (70-105) Lactic Acid (0.7-2.0) mmol/L Calcium (8.4-10.2) mg/dL Phosphorus (2.5-4.5) mg/dL Magnesium (1.7-2.3) mg/dL Total Creatine Kinase (55-170) units/L CK-MB (CK-2) (0.0-4.0) ng/mL CK-MB (CK-2) Rel Index (0-4) Urine Bilirubin (Negative) Urine RBC (Auto) (0.0-6.0) /HPF - EKG Data -: EKG Interpreted by Me (sinus tach [address] st elevation [place] or T inversion) - EKG Data When compared to previous EKG there are: no significant change 11/07/16 01:13 Repeat EKG sinus tach 117. ST elevation [place] of less artifact - Medical Decision Making Insulin drip initiated, IV fluids initiated, patient received pain medicine for reproducible anterior chest wall tenderness. Patient requires admission for DKA. Vancomycin initiated for possible persistent MRSA wound infection - Differential Diagnosis DKA, sepsis, hyperglycemia, infected skin ulcer, noncompliant, pneumonia Critical Care Time: No Critical care attestation.: If time is entered above; I have spent that time in minutes in the direct care of this critically ill patient, excluding procedure time. ED Disposition Clinical Impression: DKA (diabetic ketoacidosis), Wound infection, Non-compliance, Renal insufficiency Disposition: -09 OP ADMIT IP TO THIS HOSP Is pt being admited?: Yes Condition: Stable Time of Disposition: 00:35 (Dr Hernandez/hosp)
[2016-11-06] MEDS ORDERED: NovoLIN R 100 UNITS in NACL 0.9% 99 ML IV SCH (23:00)
[2016-11-06 23:40] LABS: Basophils % (Auto) 0.2 % (0.0-1.8); Eosinophils % (Auto) 0.1 % (0.0-4.3); Mean Corpuscular HGB Conc 30 % (32-34); Mean Corpuscular Volume 85 fl (84-94); Platelet Count 299 K/mm3 (140-440); Red Blood Count 4.23 M/mm3 (3.65-5.03); Red Cell Distribution Width 16.9 % (13.2-15.2); White Blood Count 12.7 K/mm3 (4.5-11.0)
[2016-11-06 23:47] LABS: Hemoglobin 10.9 gm/dl (11.8-15.2)
[2016-11-06 23:48] LABS: Hematocrit 35.8 % (35.5-45.6); Mean Corpuscular Hemoglobin 26 pg (28-32)
[2016-11-06 23:57] LABS: Magnesium 2.2 mg/dL (1.7-2.3); Phosphorous 6.4 mg/dL (2.5-4.5)
[2016-11-07] LABS: BUN/Creatinine Ratio 16.87; Calcium 8.8 mg/dL (8.4-10.2); Potassium 5.7 mmol/L (3.6-5.0)
[2016-11-07 00:02] LABS: Creatine Kinase MB 4.7 ng/mL (0.0-4.0)
[2016-11-07 00:26] LABS: Bilirubin,Urine NEG (Negative); Blood,Urine SM (Negative); Ketones,Urine 80 mg/dL (Negative); Leukocyte Esterase,Urine NEG (Negative); Mucus,Urine FEW /HPF; Nitrite,Urine NEG (Negative); Urobilinogen,Urine < 2.0 mg/dL (<2.0); WBC,Urine < 1.0 /HPF (0.0-6.0)
[2016-11-07] MEDS ORDERED: VANCOMYCIN/NS 1 GM/250 ML 1 GM/250 ML BAG IV ONE (00:34)
[2016-11-07 00:58] LABS: BUN/Creatinine Ratio 17.33; Calcium 7.7 mg/dL (8.4-10.2)
[2016-11-07 00:59] LABS: Potassium 4.2 mmol/L (3.6-5.0)
[2016-11-07 01:00] LABS: Chloride 97.4 mmol/L (98-107)
[2016-11-07] MEDS ORDERED: D5W/0.45% NACL/KCL 20 MEQ 20 MEQ/1,000 ML BAG IV ONE (02:45)
[2016-11-07] MEDS: DILAUDID IV PRN ×2 (04:19→21:52)
--- NOTE | 2016-11-07 05:17 | History and Physical Report ---
History of Present Illness Date of examination: 11/07/16 Date of admission: 11/07/16 00:36 Chief complaint: Gen Weakness for 2 days Nausea days History of present illness: History of Present Illness 31-year-old male with past medical history of insulin dependent Diabetes, MRSA skin infections, and multiple hospitalizations for DKA secondary to medication noncompliance presents to the hospital with hyperglycemia and generalized weakness. Patient has been noncompliant with his insulin for 2 days because " he felt bad". Patient has a persistent right shoulder wound and scalp wound from recent MRSA infection. Sharp anterior chest pain that includes the entire chest. Pain is worse with palpation. Shortness of breath reported. Patient denies nausea, vomiting, soft pain, fever. Intermittent cough reported Patient had a MPI stress test during recent admission in September that was negative for ischemia. Head Doppler study negative for DVT bilaterally and a CTA of the chest was negative for the PE. Severity scale (0 -10 - Past Medical History Juvenile Diabetes -Type I Additional medical history: staph infection - Surgical History Additional Surgical History: wound debridement (staph infection)--NECK AND BACK - Social History Smoking Status: Never Smoker Substance Use Type: None - Medications Home Medications: Home Medications Medication Instructions Recorded Confirmed Last Taken Type Insulin NPH/Regular [Novolin 70/30] 8 unit SQ BIDDIAB #1 vial 10/12/16 Unknown Rx Pantoprazole [Protonix TAB] 40 mg PO QDAY #30 tablet 10/12/16 Unknown Rx Review of Systems Stated complaint: NAUSEA/DIZZINESS/WEAKNESS Other details as noted in HPI Comment: All other systems reviewed and negative Other: Constitutional: No fevers chills Eyes: No eye pain visual changes or discharge ENT: No ear pain or throat pain Neck: Denies pain Respiratory: Denies cough wheezing Cardiovascular: Denies palpitations, syncope GI: Denies abdominal pain, nausea, vomiting, diarrhea : Denies dysuria Musculoskeletal: Denies back pain Skin: per hpi Neurologic: Denies headache, numbness, weakness Psychiatric: Denies suicidal ideation, hallucinations Medications and Allergies Allergies Allergy/AdvReac Type Severity Reaction Status Date / Time codeine Allergy Hives Verified 08/14/16 07:20 ondansetron HCl [From Zofran] Allergy Hives Verified 08/14/16 07:20 hydrocodone bitartrate AdvReac Headache Verified 08/14/16 07:20 [From Lortab] Active Meds: Active Medications Dextrose (D50w (25gm) Syringe) 0 ml IV PRN PRN PRN Reason: Hypoglycemia Hydromorphone HCl (Dilaudid) 0.5 mg IV Q3H PRN PRN Reason: Pain , Severe (7-10) Last Admin: 11/07/16 04:19 Dose: 0.5 mg Insulin Human Regular 100 (units/ Sodium Chloride) 100 mls @ 1 mls/hr IV TITR SHARATH; 1 UNITS/HR PRN Reason: Protocol Last Titration: 11/07/16 04:18 Dose: 3 units/hr, 3 mls/hr Potassium Chloride/Dextrose/Sod Cl (D5w/0.45% Nacl/Kcl 20 Meq) 20 meq in 1,000 mls @ 125 mls/hr IV DIRECT SHARATH Exam - Constitutional Vitals: Temp Pulse Resp BP Pulse Ox 97.8 F 115 H 16 87/58 100 11/07/16 03:11 11/07/16 03:11 11/07/16 03:20 11/07/16 02:11 11/07/16 03:20 General appearance: Present: no acute distress, well-nourished - EENT Eyes: Present: PERRL ENT: hearing intact, clear oral mucosa - Neck Neck: Present: supple, normal ROM - Respiratory Respiratory effort: normal Respiratory: bilateral: CTA - Cardiovascular Heart Sounds: Present: S1 & S2. Absent: rub, click - Extremities Extremities: pulses symmetrical, No edema Peripheral Pulses: within normal limits - Abdominal General gastrointestinal: Present: soft, non-tender, non-distended, normal bowel sounds Male genitourinary: Present: normal - Integumentary Integumentary: Present: clear, warm, dry - Musculoskeletal Musculoskeletal: gait normal, strength equal bilaterally - Psychiatric Psychiatric: appropriate mood/affect, intact judgment & insight - Neurologic Neurologic: CNII-XII intact, moves all extremities Results - Labs CBC & Chem 7: 11/06/16 Unknown 11/07/16 07:17 Labs: Laboratory Last Values 11/06/16 11/07/16 11/07/16 Unknown 00:10 04:45 Sodium 128 L D 134 L 138 Potassium 5.7 H D 4.2 D 4.1 Chloride 87.0 L 97.4 L 107.9 H Carbon Dioxide 3 L* D 2 L* 11 L D BUN 27 H 26 H 20 Creatinine 1.6 H D 1.5 1.1 Glucose 669 H* 510 H* 125 H Calcium 8.8 D 7.7 L 7.7 L WBC 12.7 K/mm3 (4.5-11.0) H 11/06/16 Unknown RBC 4.23 M/mm3 (3.65-5.03) 11/06/16 Unknown Hgb 10.9 gm/dl (11.8-15.2) L D 11/06/16 Unknown Hct 35.8 % (35.5-45.6) D 11/06/16 Unknown MCV 85 fl (84-94) 11/06/16 Unknown MCH 26 pg (28-32) L 11/06/16 Unknown MCHC 30 % (32-34) L 11/06/16 Unknown RDW 16.9 % (13.2-15.2) H 11/06/16 Unknown Plt Count 299 K/mm3 (140-440) 11/06/16 Unknown Lymph % (Auto) 7.7 % (13.4-35.0) L 11/06/16 Unknown [place] % (Auto) 7.3 % (0.0-7.3) 11/06/16 Unknown Eos % (Auto) 0.1 % (0.0-4.3) 11/06/16 Unknown Baso % (Auto) 0.2 % (0.0-1.8) 11/06/16 Unknown Lymph # 1.0 K/mm3 (1.2-5.4) L 11/06/16 Unknown [place] # 0.9 K/mm3 (0.0-0.8) H 11/06/16 Unknown Eos # 0.0 K/mm3 (0.0-0.4) 11/06/16 Unknown Baso # 0.0 K/mm3 (0.0-0.1) 11/06/16 Unknown Seg Neutrophils % 84.7 % (40.0-70.0) H 11/06/16 Unknown Seg Neutrophils # 10.8 K/mm3 (1.8-7.7) H 11/06/16 Unknown VBG pH 7.043 (7.320-7.420) L* 11/06/16 Unknown Sodium 134 mmol/L (137-145) L 11/07/16 00:10 Potassium 4.2 mmol/L (3.6-5.0) D 11/07/16 00:10 Chloride 97.4 mmol/L (98-107) L 11/07/16 00:10 Carbon Dioxide 2 mmol/L (22-30) L* 11/07/16 00:10 Anion Gap 39 mmol/L 11/07/16 00:10 BUN 26 mg/dL (9-20) H 11/07/16 00:10 Creatinine 1.5 mg/dL (0.8-1.5) 11/07/16 00:10 Estimated GFR 55 ml/min 11/07/16 00:10 BUN/Creatinine Ratio 17.33 % 11/07/16 00:10 Glucose 510 mg/dL (75-100) H* 11/07/16 00:10 POC Glucose 128 (70-105) H 11/07/16 05:03 Lactic Acid 2.00 mmol/L (0.7-2.0) 11/06/16 23:29 Calcium 7.7 mg/dL (8.4-10.2) L 11/07/16 00:10 Phosphorus 6.40 mg/dL (2.5-4.5) H D 11/06/16 Unknown Magnesium 2.20 mg/dL (1.7-2.3) 11/06/16 Unknown Total Creatine Kinase 18 units/L (55-170) L 11/06/16 Unknown CK-MB (CK-2) 4.7 ng/mL (0.0-4.0) H 11/06/16 Unknown CK-MB (CK-2) Rel Index 26.1 (0-4) H 11/06/16 Unknown Troponin T 0.019 ng/mL (0.00-0.029) 11/07/16 03:35 Urine Color Straw (Yellow) 11/06/16 22:31 Urine Turbidity Clear (Clear) 11/06/16 22:31 Urine pH 5.0 (5.0-7.0) 11/06/16 22:31 Ur Specific [place] 1.021 (1.003-1.030) 11/06/16 22:31 Urine Protein 30 mg/dl mg/dL (Negative) 11/06/16 22:31 Urine Glucose (UA) >=500 mg/dL (Negative) 11/06/16 22:31 Urine Ketones 80 mg/dL (Negative) 11/06/16 22:31 Urine Blood Sm (Negative) 11/06/16 22:31 Urine Nitrite Neg (Negative) 11/06/16 22:31 Urine Bilirubin Neg (Negative) 11/06/16 22:31 Urine Urobilinogen < 2.0 mg/dL (<2.0) 11/06/16 22:31 Ur Leukocyte Esterase Neg (Negative) 11/06/16 22:31 Urine WBC (Auto) < 1.0 /HPF (0.0-6.0) 11/06/16 22:31 Urine RBC (Auto) 3.0 /HPF (0.0-6.0) 11/06/16 22:31 Amorphous Crystals 1+ 11/06/16 22:31 Hyaline Casts 2 /LPF 11/06/16 22:31 Urine Mucus Few /HPF 11/06/16 22:31 Short CBC 11/06/16 Range/Units Unknown WBC 12.7 H (4.5-11.0) K/mm3 Hgb 10.9 L D (11.8-15.2) gm/dl Hct 35.8 D (35.5-45.6) % Plt Count 299 (140-440) K/mm3 BMP 11/07/16 07:17 Sodium 135 L Potassium 4.3 Chloride 105.2 Carbon Dioxide 15 L BUN 19 Creatinine 1.0 Glucose 124 H Calcium 7.6 L Cardiac Enzymes 11/06/16 11/07/16 11/07/16 Range/Units Unknown 00:10 03:35 Total Creatine Kinase 18 L (55-170) units/L CK-MB (CK-2) 4.7 H (0.0-4.0) ng/mL Troponin T 0.025 0.019 (0.00-0.029) ng/mL Urine 11/06/16 Range/Units 22:31 Urine Color Straw (Yellow) Urine pH 5.0 (5.0-7.0) Ur Specific [place] 1.021 (1.003-1.030) Urine Protein 30 mg/dl (Negative) mg/dL Urine Glucose (UA) >=500 (Negative) mg/dL Assessment and Plan Advance Directives: Yes (Full code) VTE prophylaxis?: Chemical Plan of care discussed with patient/family: Yes - Patient Problems (1) DKA (diabetic ketoacidosis) Current Visit: Yes Status: Acute Qualifiers: Diabetes mellitus type: type 1 Diabetes mellitus complication detail: D Diabetes mellitus fpc insulin use: D Plan to address problem: Needs agressive management Initiated on IV Insulin drip and protocol forDKA Large anion gap of about 44 IV fluids also (2) Hyponatremia Current Visit: Yes Status: Acute Plan to address problem: Should correct by itself when the Glucose gets corrected (3) Hyperkalemia Current Visit: Yes Status: Acute Plan to address problem: Should resolve with IV Insulin (4) ECHO (acute kidney injury) Current Visit: Yes Status: Acute Plan to address problem: Sec to Vasomotor Nephropathy. IV fluids for now and recheck BMP (5) Hypomagnesemia Current Visit: Yes Status: Acute Plan to address problem: Check magnesium
[2016-11-07] MEDS ORDERED: DULCOLAX PR PRN (05:18)
[2016-11-07] MEDS ORDERED: ZOFRAN IV PRN (05:18)
[2016-11-07] MEDS ORDERED: PERCOCET 5/325 PO PRN (05:18)
[2016-11-07] MEDS ORDERED: MILK OF MAGNESIA PO PRN (05:18)
[2016-11-07 05:25] LABS: BUN/Creatinine Ratio 18.18; Blood Urea Nitrogen 20 mg/dL (9-20); Calcium 7.7 mg/dL (8.4-10.2); Carbon Dioxide 11 mmol/L (22-30); Chloride 107.9 mmol/L (98-107); Glucose 125 mg/dL (75-100); Potassium 4.1 mmol/L (3.6-5.0); Sodium 138 mmol/L (137-145)
[2016-11-07] MEDS ORDERED: D50W (25GM) Syringe IV PRN (05:28)
[2016-11-07 05:30] LABS: Anion Gap 23 mmol/L
[2016-11-07] MEDS ORDERED: NovoLIN R 100 UNITS in NACL 0.9% 99 ML IV SCH (06:00)
[2016-11-07 07:44] LABS: Magnesium 1.8 mg/dL (1.7-2.3); Phosphorous 2.3 mg/dL (2.5-4.5)
[2016-11-07 07:44] LABS: Anion Gap 19 mmol/L; Blood Urea Nitrogen 19 mg/dL (9-20); Calcium 7.6 mg/dL (8.4-10.2); Carbon Dioxide 15 mmol/L (22-30); Chloride 105.2 mmol/L (98-107); Glucose 124 mg/dL (75-100); Potassium 4.3 mmol/L (3.6-5.0); Sodium 135 mmol/L (137-145)
[2016-11-07] MEDS: PEPCID IV SCH ×2 (09:49→21:51)
[2016-11-07] MEDS: D5W/0.45% NACL/KCL 20 MEQ 20 MEQ/1,000 ML BAG IV SCH ×2 (09:49→17:42)
--- NOTE | 2016-11-07 09:52 | XRay Report ---
AP CHEST :11/06/16 22:46:00 CLINICAL: Cough. COMPARISON:10/11/16 FINDINGS: Normal heart and pulmonary vasculature. The lungs are normally expanded and clear. The bones and soft tissues are normal. IMPRESSION: Normal chest.
[2016-11-07] MEDS ORDERED: VANCOMYCIN PHARMACY TO DOSE IV SCH (11:00)
--- NOTE | 2016-11-07 12:18 | Progress Note ---
Assessment and Plan Assessment and plan: 31-year-old man with a past medical history of insulin-dependent diabetes mellitus, history of multiple MRSA skin infections, multiple admissions for DKA , noncompliance with insulin. Patient states that he stopped taking his insulin for 2 days because he felt bad, then presented with chest pain shortness of breath, he was found to have DKA and admitted to the hospital. Of note he had a recent MPI that was negative in September 2016 he also had venous Dopplers and CTA of his chest that were negative for PE or DVT DKA * Clinically improving, continue IV fluids and IV insulin Staphylococcus infection of right shoulder and scalp/Ulcers of scalp and R shoulder * Continue vancomycin, obtain wound culture, obtain ID consult Medical nonadherence * Has been counseled about improving compliance, if he continues to stop his insulin. He could go into a DKA that could prove to be deadly [place] worsening morbidity, he verbalized understanding Hyponatremia * Continue IV fluids Hypophosphatemia * Replete IV and by mouth Acute kidney injury/vasomotor nephropathy * Has resolved IV fluids DVT prophylaxis Lovenox The high probability of a clinically significant, sudden or life threatening deterioration of the [endocrine, cardio vascular and renal] system(s) required my full and direct attention, intervention and personal management. The aggregate critical care time was [40] minutes. This time is in addition to time spent performing reported procedures but includes the following: [] Data Review and interpretation [] Patient assessment and monitoring of vital signs [] Documentation [] Medication orders and management History Interval history: Patient has a complaints today he feels better Hospitalist Physical - Physical exam Narrative exam: General.: Appears well, no distress, nontoxic HEENT: Moist mucous membranes, extraocular muscles intact, no lymphadenopathy Neck: supple Cardiac: S1-S2 heard Lungs: clear to auscultation bilaterally Abdomen: soft , nontender, nondistended, bowel sounds positive Extremities: no edema clubbing or cyanosis Skin: Ulcer right shoulder, clean pink base, 5/4 cm, ulcer on scalp with clean pink base, 4X3 cm, no surrounding erythema or induration to both these ulcers Neurologic: no gross focal deficits Psych: appropriate behavior, appropriate mood, corporative, judgment intact - Constitutional Vitals: Temp Pulse Resp BP Pulse Ox 99.5 F 130 H 16 89/50 96 11/07/16 11:50 11/07/16 12:11 11/07/16 12:11 11/07/16 12:11 11/07/16 12:11 General appearance: Present: no acute distress, well-nourished Results - Labs CBC & Chem 7: 11/06/16 Unknown 11/08/16 00:10 Labs: Laboratory Last Values WBC 12.7 K/mm3 (4.5-11.0) H 11/06/16 Unknown RBC 4.23 M/mm3 (3.65-5.03) 11/06/16 Unknown Hgb 10.9 gm/dl (11.8-15.2) L D 11/06/16 Unknown Hct 35.8 % (35.5-45.6) D 11/06/16 Unknown MCV 85 fl (84-94) 11/06/16 Unknown MCH 26 pg (28-32) L 11/06/16 Unknown MCHC 30 % (32-34) L 11/06/16 Unknown RDW 16.9 % (13.2-15.2) H 11/06/16 Unknown Plt Count 299 K/mm3 (140-440) 11/06/16 Unknown Lymph % (Auto) 7.7 % (13.4-35.0) L 11/06/16 Unknown [place] % (Auto) 7.3 % (0.0-7.3) 11/06/16 Unknown Eos % (Auto) 0.1 % (0.0-4.3) 11/06/16 Unknown Baso % (Auto) 0.2 % (0.0-1.8) 11/06/16 Unknown Lymph # 1.0 K/mm3 (1.2-5.4) L 11/06/16 Unknown Christian # 0.9 K/mm3 (0.0-0.8) H 11/06/16 Unknown Eos # 0.0 K/mm3 (0.0-0.4) 11/06/16 Unknown Baso # 0.0 K/mm3 (0.0-0.1) 11/06/16 Unknown Seg Neutrophils % 84.7 % (40.0-70.0) H 11/06/16 Unknown Seg Neutrophils # 10.8 K/mm3 (1.8-7.7) H 11/06/16 Unknown VBG pH 7.043 (7.320-7.420) L* 11/06/16 Unknown Sodium 135 mmol/L (137-145) L 11/07/16 07:17 Potassium 4.3 mmol/L (3.6-5.0) 11/07/16 07:17 Chloride 105.2 mmol/L (98-107) 11/07/16 07:17 Carbon Dioxide 15 mmol/L (22-30) L 11/07/16 07:17 Anion Gap 19 mmol/L 11/07/16 07:17 BUN 19 mg/dL (9-20) 11/07/16 07:17 Creatinine 1.0 mg/dL (0.8-1.5) 11/07/16 07:17 Estimated GFR > 60 ml/min 11/07/16 07:17 BUN/Creatinine Ratio 19.00 % 11/07/16 07:17 Glucose 124 mg/dL (75-100) H 11/07/16 07:17 POC Glucose 119 (70-105) H 11/07/16 11:58 Hemoglobin A1c 10.4 % (4-6) H 11/07/16 07:23 Lactic Acid 2.00 mmol/L (0.7-2.0) 11/06/16 23:29 Calcium 7.6 mg/dL (8.4-10.2) L 11/07/16 07:17 Phosphorus 2.30 mg/dL (2.5-4.5) L D 11/07/16 07:23 Magnesium 1.80 mg/dL (1.7-2.3) 11/07/16 07:23 Total Creatine Kinase 18 units/L (55-170) L 11/06/16 Unknown CK-MB (CK-2) 4.7 ng/mL (0.0-4.0) H 11/06/16 Unknown CK-MB (CK-2) Rel Index 26.1 (0-4) H 11/06/16 Unknown Troponin T 0.019 ng/mL (0.00-0.029) 11/07/16 03:35 Urine Color Straw (Yellow) 11/06/16 22:31 Urine Turbidity Clear (Clear) 11/06/16 22:31 Urine pH 5.0 (5.0-7.0) 11/06/16 22:31 Ur Specific [place] 1.021 (1.003-1.030) 11/06/16 22:31 Urine Protein 30 mg/dl mg/dL (Negative) 11/06/16 22:31 Urine Glucose (UA) >=500 mg/dL (Negative) 11/06/16 22:31 Urine Ketones 80 mg/dL (Negative) 11/06/16 22:31 Urine Blood Sm (Negative) 11/06/16 22:31 Urine Nitrite Neg (Negative) 11/06/16 22:31 Urine Bilirubin Neg (Negative) 11/06/16 22:31 Urine Urobilinogen < 2.0 mg/dL (<2.0) 11/06/16 22:31 Ur Leukocyte Esterase Neg (Negative) 11/06/16 22:31 Urine WBC (Auto) < 1.0 /HPF (0.0-6.0) 11/06/16 22:31 Urine RBC (Auto) 3.0 /HPF (0.0-6.0) 11/06/16 22:31 Amorphous Crystals 1+ 11/06/16 22:31 Hyaline Casts 2 /LPF 11/06/16 22:31 Urine Mucus Few /HPF 11/06/16 22:31
[2016-11-07] MEDS ORDERED: VANCOMYCIN 750 MG in NACL 0.9% 250ML 250 ML IV SCH (13:00)
[2016-11-07 13:55] LABS: BUN/Creatinine Ratio 16.66; Blood Urea Nitrogen 15 mg/dL (9-20); Calcium 8.1 mg/dL (8.4-10.2); Carbon Dioxide 16 mmol/L (22-30); Glucose 120 mg/dL (75-100)
[2016-11-07 13:56] LABS: Anion Gap 19 mmol/L; Chloride 109.6 mmol/L (98-107); Potassium 3.9 mmol/L (3.6-5.0); Sodium 141 mmol/L (137-145)
[2016-11-07] MEDS ORDERED: NACL 0.9% 500 ML 500 ML IV ONE (14:32)
[2016-11-07] MEDS ORDERED: ULTRAM PO PRN (14:36)
[2016-11-07 14:45] LABS: Anion Gap 16 mmol/L; BUN/Creatinine Ratio 14.44; Blood Urea Nitrogen 13 mg/dL (9-20); Calcium 7.7 mg/dL (8.4-10.2); Carbon Dioxide 17 mmol/L (22-30); Chloride 106.4 mmol/L (98-107); Glucose 106 mg/dL (75-100); Potassium 3.5 mmol/L (3.6-5.0); Sodium 136 mmol/L (137-145)
[2016-11-07] MEDS: NOVOLOG SUB-Q SCH ×2 (16:39→21:58)
[2016-11-07] MEDS: K-PHOS NEUTRAL PO SCH ×2 (17:38→21:52)
[2016-11-08 00:35] LABS: Anion Gap 14 mmol/L; BUN/Creatinine Ratio 11.42; Blood Urea Nitrogen 8 mg/dL (9-20); Calcium 7.7 mg/dL (8.4-10.2); Carbon Dioxide 18 mmol/L (22-30); Chloride 99.5 mmol/L (98-107); Glucose 165 mg/dL (75-100); Potassium 3.9 mmol/L (3.6-5.0); Sodium 128 mmol/L (137-145)
[2016-11-08] MEDS: D5W/0.45% NACL/KCL 20 MEQ 20 MEQ/1,000 ML BAG IV SCH ×2 (01:43→09:32)
[2016-11-08] MEDS: TYLENOL PO PRN (02:42)
[2016-11-08] MEDS: NOVOLOG SUB-Q SCH ×4 (08:04→22:21)
[2016-11-08] MEDS: K-PHOS NEUTRAL PO SCH ×4 (09:30→21:48)
[2016-11-08] MEDS: PEPCID IV SCH ×2 (09:30→21:51)
[2016-11-08] MEDS ORDERED: SODIUM PHOSPHATE 45 MMOL in NACL 0.9% 500 ML 500 ML IV ONE (10:47)
[2016-11-08] MEDS ORDERED: MAGNESIUM SULFATE 2GM/50ML 2 GM/50 ML BAG IV ONE (10:47)
[2016-11-08] MEDS: NACL 0.9% 1000 ML 1,000 ML IV SCH (12:31)
[2016-11-08] MEDS ORDERED: VANCOMYCIN PHARMACY TO DOSE IV SCH (13:00)
--- NOTE | 2016-11-08 15:18 | Progress Note ---
Assessment and Plan Assessment and plan: 31-year-old man with a past medical history of insulin-dependent diabetes mellitus, history of multiple MRSA skin infections, multiple admissions for DKA , noncompliance with insulin. Patient states that he stopped taking his insulin for 2 days because he felt bad, then presented with chest pain shortness of breath, he was found to have DKA and admitted to the hospital. Of note he had a recent MPI that was negative in September 2016 he also had venous Dopplers and CTA of his chest that were negative for PE or DVT DKA * Clinically improving, transitioned to subcutaneous insulin. If he continues to improve tentative transfer to medical floor today Staphylococcus infection of right shoulder and scalp/Ulcers of scalp and R shoulder * Continue vancomycin, obtain wound culture, obtain ID consult Medical nonadherence * Has been counseled about improving compliance, if he continues to stop his insulin. He could go into a DKA that could prove to be deadly [place] worsening morbidity, he verbalized understanding Hyponatremia * Continue IV fluids Hypophosphatemia/hypomagnesemia * Continue to replete Acute kidney injury/vasomotor nephropathy * Has resolved IV fluids DVT prophylaxis Lovenox The high probability of a clinically significant, sudden or life threatening deterioration of the [endocrine, cardio vascular and renal] system(s) required my full and direct attention, intervention and personal management. The aggregate critical care time was [40] minutes. This time is in addition to time spent performing reported procedures but includes the following: [] Data Review and interpretation [] Patient assessment and monitoring of vital signs [] Documentation [] Medication orders and management History Interval history: Patient has a complaints today he feels better Hospitalist Physical - Physical exam Narrative exam: General.: Appears well, no distress, nontoxic HEENT: Moist mucous membranes, extraocular muscles intact, no lymphadenopathy Neck: supple Cardiac: S1-S2 heard Lungs: clear to auscultation bilaterally Abdomen: soft , nontender, nondistended, bowel sounds positive Extremities: no edema clubbing or cyanosis Skin: Ulcer right shoulder, clean pink base, 5/4 cm, ulcer on scalp with clean pink base, 4X3 cm, no surrounding erythema or induration to both these ulcers Neurologic: no gross focal deficits Psych: appropriate behavior, appropriate mood, corporative, judgment intact - Constitutional Vitals: Temp Pulse Resp BP Pulse Ox 98.4 F 97 H 13 122/89 100 11/08/16 12:00 11/08/16 09:04 11/08/16 09:04 11/08/16 08:30 11/08/16 09:04 General appearance: Present: no acute distress, well-nourished Results - Labs CBC & Chem 7: 11/06/16 Unknown 11/08/16 00:10 Labs: Laboratory Last Values WBC 12.7 K/mm3 (4.5-11.0) H 11/06/16 Unknown RBC 4.23 M/mm3 (3.65-5.03) 11/06/16 Unknown Hgb 10.9 gm/dl (11.8-15.2) L D 11/06/16 Unknown Hct 35.8 % (35.5-45.6) D 11/06/16 Unknown MCV 85 fl (84-94) 11/06/16 Unknown MCH 26 pg (28-32) L 11/06/16 Unknown MCHC 30 % (32-34) L 11/06/16 Unknown RDW 16.9 % (13.2-15.2) H 11/06/16 Unknown Plt Count 299 K/mm3 (140-440) 11/06/16 Unknown Lymph % (Auto) 7.7 % (13.4-35.0) L 11/06/16 Unknown [place] % (Auto) 7.3 % (0.0-7.3) 11/06/16 Unknown Eos % (Auto) 0.1 % (0.0-4.3) 11/06/16 Unknown Baso % (Auto) 0.2 % (0.0-1.8) 11/06/16 Unknown Lymph # 1.0 K/mm3 (1.2-5.4) L 11/06/16 Unknown [place] # 0.9 K/mm3 (0.0-0.8) H 11/06/16 Unknown Eos # 0.0 K/mm3 (0.0-0.4) 11/06/16 Unknown Baso # 0.0 K/mm3 (0.0-0.1) 11/06/16 Unknown Seg Neutrophils % 84.7 % (40.0-70.0) H 11/06/16 Unknown Seg Neutrophils # 10.8 K/mm3 (1.8-7.7) H 11/06/16 Unknown VBG pH 7.043 (7.320-7.420) L* 11/06/16 Unknown Sodium 128 mmol/L (137-145) L D 11/08/16 00:10 Potassium 3.9 mmol/L (3.6-5.0) 11/08/16 00:10 Chloride 99.5 mmol/L (98-107) 11/08/16 00:10 Carbon Dioxide 18 mmol/L (22-30) L 11/08/16 00:10 Anion Gap 14 mmol/L 11/08/16 00:10 BUN 8 mg/dL (9-20) L 11/08/16 00:10 Creatinine 0.7 mg/dL (0.8-1.5) L 11/08/16 00:10 Estimated GFR > 60 ml/min 11/08/16 00:10 BUN/Creatinine Ratio 11.42 % 11/08/16 00:10 Glucose 165 mg/dL (75-100) H 11/08/16 00:10 POC Glucose 216 (70-105) H 11/08/16 12:03 Hemoglobin A1c 10.4 % (4-6) H 11/07/16 07:23 Lactic Acid 2.00 mmol/L (0.7-2.0) 11/06/16 23:29 Calcium 7.7 mg/dL (8.4-10.2) L 11/08/16 00:10 Phosphorus 1.40 mg/dL (2.5-4.5) L D 11/08/16 00:10 Magnesium 1.50 mg/dL (1.7-2.3) L 11/08/16 00:10 Total Creatine Kinase 18 units/L (55-170) L 11/06/16 Unknown CK-MB (CK-2) 4.7 ng/mL (0.0-4.0) H 11/06/16 Unknown CK-MB (CK-2) Rel Index 26.1 (0-4) H 11/06/16 Unknown Troponin T 0.019 ng/mL (0.00-0.029) 11/07/16 03:35 Urine Color Straw (Yellow) 11/06/16 22:31 Urine Turbidity Clear (Clear) 11/06/16 22:31 Urine pH 5.0 (5.0-7.0) 11/06/16 22:31 Ur Specific [place] 1.021 (1.003-1.030) 11/06/16 22:31 Urine Protein 30 mg/dl mg/dL (Negative) 11/06/16 22:31 Urine Glucose (UA) >=500 mg/dL (Negative) 11/06/16 22:31 Urine Ketones 80 mg/dL (Negative) 11/06/16 22:31 Urine Blood Sm (Negative) 11/06/16 22:31 Urine Nitrite Neg (Negative) 11/06/16 22:31 Urine Bilirubin Neg (Negative) 11/06/16 22:31 Urine Urobilinogen < 2.0 mg/dL (<2.0) 11/06/16 22:31 Ur Leukocyte Esterase Neg (Negative) 11/06/16 22:31 Urine WBC (Auto) < 1.0 /HPF (0.0-6.0) 11/06/16 22:31 Urine RBC (Auto) 3.0 /HPF (0.0-6.0) 11/06/16 22:31 Amorphous Crystals 1+ 11/06/16 22:31 Hyaline Casts 2 /LPF 11/06/16 22:31 Urine Mucus Few /HPF 11/06/16 22:31
[2016-11-08] MEDS: VANCOMYCIN VIAL 750 MG in NACL 0.9% 250ML 250 ML IV SCH ×2 (15:34→23:07)
[2016-11-08] MEDS: DILAUDID IV PRN ×2 (17:59→23:14)
[2016-11-08] MEDS ORDERED: LOVENOX SUB-Q SCH (22:00)
[2016-11-09] MEDS: TYLENOL PO PRN (07:07)
[2016-11-09] MEDS: VANCOMYCIN VIAL 750 MG in NACL 0.9% 250ML 250 ML IV SCH ×2 (07:08→14:31)
[2016-11-09] MEDS: NACL 0.9% 1000 ML 1,000 ML IV SCH (07:11)
[2016-11-09 07:25] LABS: Magnesium 1.7 mg/dL (1.7-2.3)
--- NOTE | 2016-11-09 08:09 | Discharge Summary ---
Providers - Providers Date of Admission: 11/07/16 00:36 Attending physician: JERMAIN KATZ MD 11/07/16 05:18 Consult to Dietitian/Nutrition [CONS] Routine Physician Instructions: Reason For Exam: Reason for Consult: Diet education 11/07/16 05:29 Consult to Dietitian/Nutrition [CONS] Routine Physician Instructions: Reason For Exam: DKA Reason for Consult: Nutrition Recommendations Reason for Consult: Diet education 11/07/16 10:34 Consult to Wound/ET Nurse [CONS] Routine Reason For Exam: wound eval 11/08/16 12:48 Consult to Physician [CONS] Routine Consulting Provider: JOSUE MICHELLE Reason For Exam: MRSA skin infection Place consult to:: DR. FISCHER Notified:: [facility] Phone number called:: [phone] Was contact made?: Yes If yes, spoke with:: HAYDE Velasco called:: 16:57 Comment:: EUSEBIO Primary care physician: [facility] Hospitalization Condition: Stable Hospital course: 31-year-old man with a past medical history of insulin-dependent diabetes mellitus, history of multiple MRSA skin infections, multiple admissions for DKA , noncompliance with insulin. Patient states that he stopped taking his insulin for 2 days because he felt bad, then presented with chest pain shortness of breath, he was found to have DKA and admitted to the hospital. Of note he had a recent MPI that was negative in September 2016 he also had venous Dopplers and CTA of his chest that were negative for PE or DVT He was again found to have DKA due to noncompliance for which she was treated with IV insulin, transitioned to subcutaneous insulin. He was counseled about improving his medical compliance. His electrolytes were repleted, he received IV fluids. He received wound care for multiple wounds on his scalp back and right shoulder. He was seen in conjunction with ID, he was given antibiotics for MSSA infection of the skin. He was advised to follow-up in wound care clinic Discharge diagnoses DKA Uncontrolled type 1 insulin-dependent diabetes Methicillin sensitive Staphylococcus infection of right shoulder and scalp/ Ulcers of scalp and R shoulder Medical nonadherence Hyponatremia Hypophosphatemia/hypomagnesemia Acute kidney injury/vasomotor nephropathy Disposition: TO HOME OR SELFCARE Time spent for discharge: 33 minutes Core Measure Documentation - Palliative Care Palliative Care/ Comfort Measures: Not Applicable - Core Measures Any of the following diagnoses?: none Exam - Physical Exam Narrative exam: General.: Appears well, no distress, nontoxic HEENT: Moist mucous membranes, extraocular muscles intact, no lymphadenopathy Neck: supple Cardiac: S1-S2 heard Lungs: clear to auscultation bilaterally Abdomen: soft , nontender, nondistended, bowel sounds positive Extremities: no edema clubbing or cyanosis Skin: Ulcer right shoulder, clean pink base, 5/4 cm, ulcer on scalp with clean pink base, 4X3 cm, no surrounding erythema or induration to both these ulcers Neurologic: no gross focal deficits Psych: appropriate behavior, appropriate mood, corporative, judgment intact - Constitutional Vitals: Temp Pulse Resp BP Pulse Ox 98.9 F 99 H 16 122/84 98 11/09/16 08:00 11/09/16 08:00 11/09/16 08:00 11/09/16 08:00 11/09/16 08:00 Plan Additional Instructions: Please follow up in wound clinic within 1-2 days of discharge Follow up with: PRIMARY CARE, [Primary Care Provider] - 3-5 Days Prescriptions: Cephalexin [Keflex] 500 mg PO Q6HR 14 Days Insulin NPH/Regular [NovoLIN 70/30] 15 unit SUB-Q BIDDIAB 30 Days Phosphorus #1 [K-Phos Neutral] 250 mg PO QID #30 tablet traMADol [Ultram 50 MG tab] 25 mg PO Q4H PRN #14 tablet PRN Reason: Pain, Moderate (4-6)
[2016-11-09] MEDS: NOVOLOG SUB-Q SCH ×2 (08:26→12:40)
[2016-11-09] MEDS: K-PHOS NEUTRAL PO SCH ×2 (10:20→14:30)
[2016-11-09] MEDS: PEPCID IV SCH (10:20)
[2016-11-09 10:36] LABS: Anion Gap 15 mmol/L; Blood Urea Nitrogen 5 mg/dL (9-20); Calcium 8.1 mg/dL (8.4-10.2); Carbon Dioxide 24 mmol/L (22-30); Chloride 96.6 mmol/L (98-107); Glucose 141 mg/dL (75-100); Potassium 3.1 mmol/L (3.6-5.0); Sodium 132 mmol/L (137-145)
--- NOTE | 2016-11-09 11:52 | Consultation ---
History of Present Illness - Reason for Consult Consult date: 11/09/16 abscess Requesting physician: JERMAIN NEAL - History of Present Illness 31 years old male with history of diabetes type 1, well known to me in view of recent admission 10/03-10/08/16 due sepsis, DKA and MSSA multiple cutaneous abscesses to bilateral shoulder areas and scalp. Unfortunately, patient was re- admited on 11/06/16 due to malaise, fever. It seems like he stopped his insulin 2 days before admission. During previous admission he was taking to the OR for I +D of cutaneous abscesses. Cultures grew MSSA. He received cefazolin IV while inpatient and discharged home on PO keflex for 14 days until 10/19/16. He reports he took the course of keflex. In the ED, temp 101.4, HR 130, WBC 12.7K, CR 1.6, glu 669, A1C 10.4. UA neg. CXR neg. Blood cx negative. Microbiology: Blood cultures: 11/07 neg Urine cultures: Respiratory cultures: Wound cultures: 11/07 Staph Stool cultures: Other: Current Antimicrobials: Vancomycin 11/08 Past History Past Medical History: other (DM, multiple cutaneus abscesses, multiple DKAs) Past Surgical History: Other (I+D) Social history: no significant social history Family history: no significant family history Medications and Allergies Allergies Allergy/AdvReac Type Severity Reaction Status Date / Time codeine Allergy Hives Verified 08/14/16 07:20 ondansetron HCl [From Zofran] Allergy Hives Verified 08/14/16 07:20 hydrocodone bitartrate AdvReac Headache Verified 08/14/16 07:20 [From Lortab] Active Meds: Active Medications Acetaminophen (Tylenol) 650 mg PO Q4H PRN PRN Reason: Pain MILD(1-3)/Fever >100.5/MCKEON Last Admin: 11/09/16 07:07 Dose: 650 mg Bisacodyl (Dulcolax) 10 mg [place] QDAY PRN PRN Reason: Constipation unrelieved by MOM Dextrose (D50w (25gm) Syringe) 0 ml IV PRN PRN PRN Reason: Hypoglycemia Enoxaparin Sodium (Lovenox) 40 mg SUB-Q QDAY@2200 SHARATH Last Admin: 11/08/16 21:48 Dose: 40 mg Famotidine (Pepcid) 20 mg IV BID [facility] Last Admin: 11/09/16 10:20 Dose: 20 mg Hydromorphone HCl (Dilaudid) 0.5 mg IV Q3H PRN PRN Reason: Pain , Severe (7-10) Last Admin: 11/08/16 23:14 Dose: 0.5 mg Sodium Chloride (Nacl 0.9% 1000 Ml) 1,000 mls @ 100 mls/hr IV DIRECT [facility] Last Admin: 11/09/16 07:11 Dose: 100 mls/hr Vancomycin HCl 750 mg/ Sodium (Chloride) 250 mls @ 166.667 mls/hr IV Q8H [facility] Last Admin: 11/09/16 07:08 Dose: 166.667 mls/hr Insulin Aspart (Novolog) 0 units SUB-Q ACHS [facility] PRN Reason: Protocol Last Admin: 11/09/16 08:26 Dose: Not Given Insulin Human Isoph/Insulin Regular (Novolin 70/30) 15 unit SUB-Q BIDDIAB [facility] Last Admin: 11/09/16 10:20 Dose: 15 unit Magnesium Hydroxide (Milk Of Magnesia) 30 ml PO Q4H PRN PRN Reason: Constipation Sodium Phosphate (K-Phos Neutral) 250 mg PO QID [facility] Last Admin: 11/09/16 10:20 Dose: 250 mg Tramadol HCl (Ultram) 25 mg PO Q4H PRN PRN Reason: Pain, Moderate (4-6) Last Admin: 11/07/16 20:24 Dose: 25 mg Vancomycin HCl (Vancomycin Pharmacy To Dose) 1 each IV PKCONSULT [facility] PRN Reason: Protocol Review of Systems Constitutional: fever, weakness, malaise, no weight loss, no weight gain Ears, nose, mouth and throat: no ear pain, no decreased hearing, no nasal discharge Cardiovascular: no orthopnea, no edema Respiratory: no cough Gastrointestinal: no abdominal pain, no nausea, no vomiting, no diarrhea Genitourinary Male: no dysuria, no hematuria Neurological: no weakness Psychiatric: no anxiety Physical Examination - Physical Exam Narrative exam: General appearance: Alert in NAD, conversant Eyes: anicteric sclerae, moist conjunctivae; no lid-lag; PERRLA HENT: Atraumatic; oropharynx clear. Neck: Trachea midline; supple, no thyromegaly or lymphadenopathy Lungs: CTA, with normal respiratory effort and no intercostal retractions CV: RRR, no murmurs Abdomen: Soft, non-tender; no masses or hepatosplenomegaly Extremities: No peripheral edema or extremity lymphadenopathy Skin: +scalp, right and left shoulder wounds with good granulation tissue; right post back lesions with edema, erythema, tenderness draining purulence. Psych: Appropriate affect, alert and oriented to person, place and time. Neuro: alert and oriented x 3. Moving all extermities Lines: No CVL / PICC - Constitutional Vitals: Vital Signs Temp Pulse Resp BP Pulse Ox 98.9 F 99 H 16 122/84 98 11/09/16 08:00 11/09/16 08:00 11/09/16 08:00 11/09/16 08:00 11/09/16 08:00 Temperature -Last 24 Hours Temperature 98.9 F Temperature 99.3 F Temperature 97.9 F Temperature 98.4 F Results - Labs CBC & Chem 7: 11/06/16 Unknown 11/09/16 08:38 Labs: Abnormal lab results 11/08/16 11/08/16 11/08/16 Range/Units 12:03 16:53 22:06 Sodium (137-145) mmol/L Potassium (3.6-5.0) mmol/L Chloride (98-107) mmol/L BUN (9-20) mg/dL Creatinine (0.8-1.5) mg/dL Glucose (75-100) mg/dL POC Glucose 216 H 238 H 120 H (70-105) Calcium (8.4-10.2) mg/dL 11/09/16 Range/Units 08:38 Sodium 132 L (137-145) mmol/L Potassium 3.1 L D (3.6-5.0) mmol/L Chloride 96.6 L (98-107) mmol/L BUN 5 L (9-20) mg/dL Creatinine 0.5 L (0.8-1.5) mg/dL Glucose 141 H (75-100) mg/dL POC Glucose (70-105) Calcium 8.1 L (8.4-10.2) mg/dL - Imaging and Cardiology Chest x-ray: report reviewed (as per HPI) Assessment and Plan Assessment: 1) Sepsis: Present on admission, manifested by fever, leukocytosis and hypotension. Etiology most likely cutaneous abscesses. 2) Right back cutaneous abscesses x 2 3) Recent bilateral shoulder and scalp abscesses due to MSSA-treated and healing 4) DKA Plan: -may needs I+D of right back abscesses -follow-up blood cultures -obtain C-reactive protein (CRP) -continue vancomycin for now -follow wound cultures Thank you Dr Neal for your consultation, will follow up with you. Rowena Garnica MD Infectious Diseases Specialist [facility] ([facility] M [phone] O [phone]
[2016-11-09 16:55] VITALS: BP 149/107
== END 2016-11-09 17:00 | disposition home or self-care (01) | DRG 871 ==
LOC: ED 20:15 → CC1 11-07 00:36 → 3A 11-08 16:20
PROVIDERS: ADMIT Internal Medicine; ATTEND Internal Medicine
DX: A41.9 Sepsis, unspecified organism (principal); N17.0 Acute kidney failure with tubular necrosis; E13.10 Other specified diabetes mellitus with ketoacidosis without coma; E87.1 Hypo-osmolality and hyponatremia; L02.212 Cutaneous abscess of back [any part, except buttock and flank]; E87.5 Hyperkalemia; E83.42 Hypomagnesemia; E83.39 Other disorders of phosphorus metabolism; Z91.19 Patient's noncompliance with other medical treatment and regimen; Z79.4 Long term (current) use of insulin; Z88.6 Allergy status to analgesic agent; Z88.8 Allergy status to other drugs, medicaments and biological substances
CPT/HCPCS: 36415; 71010; 80048; 81001; 82140; 82550; 82553; 82805; 82962; 83036; 83735; 84100; 84484; 85025; 86140; 87040; 87076; 87116; 87186; 93005; 93010; 96361; 96374; 96375; J1170; J1200; J1650; J1815; J2270; J2765; J3370; J3475; J7030; J7040; J7050

== ENCOUNTER 2017-01-30 16:46 | Inpatient (IN) | payer SELFPAY ==
[2017-01-30 17:48] LABS: Basophils % (Auto) 0.6 % (0.0-1.8); Eosinophils % (Auto) 0.3 % (0.0-4.3); Hematocrit 35.2 % (35.5-45.6); Hemoglobin 11.6 gm/dl (11.8-15.2); Mean Corpuscular HGB Conc 33 % (32-34); Mean Corpuscular Volume 78 fl (84-94); Platelet Count 393 K/mm3 (140-440); Red Cell Distribution Width 14.6 % (13.2-15.2); White Blood Count 10.6 K/mm3 (4.5-11.0)
[2017-01-30 17:54] LABS: Mean Corpuscular Hemoglobin 26 pg (28-32)
[2017-01-30 17:58] LABS: Calcium 8.7 mg/dL (8.4-10.2); Chloride 85.9 mmol/L (98-107); Potassium 4.2 mmol/L (3.6-5.0)
--- NOTE | 2017-01-30 21:42 | XRay Report ---
FINAL REPORT PROCEDURE: XR WRIST 3+V LT TECHNIQUE: LEFT wrist radiographs, including AP, lateral, and oblique views. CPT 14926 HISTORY: Fall with deformity. COMPARISON: Fall with deformity. FINDINGS: Fracture (s) and/or Dislocation(s): Moderately comminuted and mildly impacted distal radial fracture. This has slight dorsal apex angulation. There is extension to the articular surface of the radiocarpal joint with largest area of diastasis at the articular surface measuring 2.5 millimeters. Minimally displaced ulnar styloid fracture. Lucency through the midbody of the hamate and triquetrum. Alignment: Normal . Joint space(s): Normal . Soft tissues: Normal . Bone mineralization: Mild osteopenia. Foreign bodies: None . IMPRESSION: Posttraumatic distal radial and ulnar fractures. Lucency through the midbody of the hamate and triquetrum, could be related to patient positioning. Consider attention on followup radiographs or even CT scan if there is concern for subtle fracture of the hamate and/or triquetrum. Mild osteopenia.
--- NOTE | 2017-01-31 00:12 | Emergency Department Report ---
ED General Adult HPI - General Chief complaint: Chest Pain Stated complaint: CP/DIZZINESS Time Seen by Provider: 01/31/17 00:09 Source: patient, RN notes reviewed, old records reviewed Mode of arrival: Ambulatory Limitations: No Limitations - History of Present Illness Initial comments: This is a 31-year-old male Patient is previously known to this provider. Patient has a past medical history of diabetes, diabetic ketoacidosis, multiple visits to this hospital for diabetic ketoacidosis. Patient presents to the ER with complaint of chest pain, weakness and dizziness. Chest pain is central. It is not related to the back, arms or neck. There is no vomiting, there is no diaphoresis, this chronic shortness of breath. There is no posterior leg pain or leg swelling. Patient reports no recent trips or hospital admissions. Patient does note that he fell onto his left side today because he felt so weak. He also notes that he tripped and fell onto his left forearm a few weeks ago, and "I think I broke my wrist." -: Gradual, days(s) Location: chest Radiation: non-radiation Severity scale (0 -10): 8 Quality: aching Consistency: intermittent Improves with: none Worsens with: none Associated Symptoms: weakness - Related Data Previous Rx's Medication Instructions Recorded Last Taken Type Cephalexin [Keflex] 500 mg PO Q6HR 14 Days capsule 11/09/16 Unknown Rx Insulin NPH/Regular [NovoLIN 70/30] 15 unit SUB-Q BIDDIAB 30 Days 11/09/16 Unknown Rx units Phosphorus #1 [K-Phos Neutral] 250 mg PO QID #30 tablet 11/09/16 Unknown Rx traMADol [Ultram 50 MG tab] 25 mg PO Q4H PRN #14 tablet 11/09/16 Unknown Rx Allergies Allergy/AdvReac Type Severity Reaction Status Date / Time codeine Allergy Hives Verified 08/14/16 07:20 ondansetron HCl [From Zofran] Allergy Hives Verified 08/14/16 07:20 hydrocodone bitartrate AdvReac Headache Verified 08/14/16 07:20 [From Lortab] ED Review of Systems ROS: Stated complaint: CP/DIZZINESS Other details as noted in HPI Constitutional: malaise. denies: fever Eyes: denies: eye discharge ENT: denies: epistaxis Respiratory: shortness of breath Cardiovascular: chest pain Gastrointestinal: denies: vomiting Genitourinary: as per HPI Musculoskeletal: denies: back pain Skin: denies: lesions Neurological: weakness Psychiatric: as per HPI ED Past Medical Hx - Past Medical History Hx Congestive Heart Failure: No Hx Diabetes: Yes Hx Asthma: No Hx COPD: No Hx HIV: No Additional medical history: staph infection - Surgical History Additional Surgical History: wound debridement (staph infection)--NECK AND BACK - Social History Smoking Status: Never Smoker Substance Use Type: None - Medications Home Medications: Home Medications Medication Instructions Recorded Confirmed Last Taken Type Cephalexin [Keflex] 500 mg PO Q6HR 14 Days capsule 11/09/16 Unknown Rx Insulin NPH/Regular [NovoLIN 70/30] 15 unit SUB-Q BIDDIAB 30 Days 11/09/16 Unknown Rx units Phosphorus #1 [K-Phos Neutral] 250 mg PO QID #30 tablet 11/09/16 Unknown Rx traMADol [Ultram 50 MG tab] 25 mg PO Q4H PRN #14 tablet 11/09/16 Unknown Rx ED Physical Exam - General Limitations: No Limitations, Other (the patient is in no distress, and is noted to be playing on a cellular phone) General appearance: alert, in no apparent distress - Head Head exam: Present: atraumatic, normocephalic - Eye Eye exam: Present: normal appearance - ENT ENT exam: Present: mucous membranes dry - Neck Neck exam: Present: normal inspection, full ROM - Respiratory Respiratory exam: Present: normal lung sounds bilaterally. Absent: respiratory distress, chest wall tenderness - Cardiovascular Cardiovascular Exam: Present: normal rhythm, tachycardia, normal heart sounds. Absent: systolic murmur, diastolic murmur, rubs, gallop - GI/Abdominal GI/Abdominal exam: Present: soft, normal bowel sounds. Absent: distended, tenderness, guarding, rebound, rigid, pulsatile mass - Rectal Rectal exam: Present: deferred - Extremities Exam Extremities exam: Present: normal inspection, full ROM, normal capillary refill , other (2+ pulses noted in the bilateral upper and lower extremities, the compartments are soft, sensation intact to light touch in the median, radial, ulnar, deltoid distribution in the bilateral upper extremities. Thumb opposition is intact bilaterally, electrophysiology scientist strength intact bilaterally, there is no distal wrist tenderness.). Absent: pedal edema, joint swelling, calf tenderness - Back Exam Back exam: Present: normal inspection, full ROM. Absent: tenderness, CVA tenderness (R), paraspinal tenderness, vertebral tenderness - Neurological Exam Neurological exam: Present: alert, oriented X3, CN II-XII intact, other ( Extraocular movements intact. Tongue midline. No facial droop. Facial sensation intact to light touch in the V1, V2, V3 distribution bilaterally. 5 and 5 strength in 4 extremities.. Sensation is intact to light touch in 4 extremities.). Absent: motor sensory deficit - Psychiatric Psychiatric exam: Present: normal affect, normal mood - Skin Skin exam: Present: warm, dry, intact, normal color. Absent: rash ED Course Vital Signs 01/30/17 01/30/17 01/31/17 17:12 20:50 02:02 Temperature 97.5 F L Pulse Rate 110 H 112 H 113 H Respiratory 16 18 17 Rate Blood Pressure 96/63 108/65 O2 Sat by Pulse 100 97 Oximetry 01/31/17 01/31/17 01/31/17 02:15 02:30 02:45 Temperature Pulse Rate 121 H 109 H 106 H Respiratory 12 14 23 Rate Blood Pressure 112/70 112/70 100/61 O2 Sat by Pulse Oximetry 01/31/17 01/31/17 01/31/17 03:00 03:16 03:30 Temperature Pulse Rate 107 H 107 H 107 H Respiratory 17 11 L 43 H Rate Blood Pressure 90/54 104/59 100/61 O2 Sat by Pulse Oximetry - Reevaluation(s) Reevaluation #1: 01/31/17 01:05 Differential diagnosis, including but not limited to: Acute coronary syndrome, pneumonia, pericarditis, myocarditis, acute coronary syndrome, pulmonary embolus. Diabetic ketoacidosis Assessment and plan: 31-year-old male with a primary complaint of chest pain and weakness. He is afebrile with tachycardia. Laboratory studies indicate hyperglycemia, anion gap acidosis, renal insufficiency, suggestive of diabetic ketoacidosis. Chest pain has been present for one week, clinically sounds atypical, troponin negative 3. Low risk by well's criteria, however patient does endorse nonspecific chest pain and shortness of breath. Not febrile, not especially tachycardic, troponin negative, therefore think pericarditis, myocarditis very unlikely. One EKG demonstrated nonspecific ST abnormality in the inferior leads , without reciprocal changes. However given one week of chest pain with multiple negative enzymes, STEMI is very unlikely. Repeat EKG and right-sided EKG leads did not corroborate inferior wall STEMI. Case was discussed with cardiology on-call, Dr. Gonzalez, who agrees with plan for medical admission and will see the patient in consultation. Patient started on an insulin drip as per diabetic ketoacidosis protocol. Patient is requesting to eat and playing on a cellular phone. Of note, patient did mention that he fell onto his left wrist a few weeks ago, and x-ray demonstrated subacute fractures, however the patient has no tenderness whatsoever, and he can follow up with outpatient orthopedics for this. He is not tender and has appropriate range of motion in his left upper extremity, and will therefore be ordered for a splint. Case presented to the Hospital physician, Dr. Aguirre, who accepted the patient to the medical service. 01/31/17 01:17 Reevaluation #2: 01/31/17 01:21 No pulmonary embolus or DVT risk factors, low risk by well's criteria, d-dimer obtained Reevaluation #3: 01/31/17 02:33 D-dimer is negative. Repeat basic metabolic panel demonstrates worsening hyperglycemia, pseudohyponatremia. ED Medical Decision Making - Lab Data Result diagrams: 01/30/17 17:19 01/31/17 03:52 Vital Signs 01/30/17 01/30/17 17:12 20:50 Temperature 97.5 F L Pulse Rate 110 H 112 H Respiratory 16 18 Rate Blood Pressure 96/63 108/65 O2 Sat by Pulse 100 97 Oximetry Lab Results 01/30/17 01/30/17 01/30/17 Range/Units 17:19 17:19 19:50 WBC 10.6 (4.5-11.0) K/mm3 RBC 4.50 (3.65-5.03) M/mm3 Hgb 11.6 L (11.8-15.2) gm/dl Hct 35.2 L (35.5-45.6) % MCV 78 L (84-94) fl MCH 26 L (28-32) pg MCHC 33 (32-34) % RDW 14.6 (13.2-15.2) % Plt Count 393 (140-440) K/mm3 Lymph % (Auto) 14.5 (13.4-35.0) % Rowan % (Auto) 6.6 (0.0-7.3) % Eos % (Auto) 0.3 (0.0-4.3) % Baso % (Auto) 0.6 (0.0-1.8) % Lymph # 1.5 (1.2-5.4) K/mm3 Rowan # 0.7 (0.0-0.8) K/mm3 Eos # 0.0 (0.0-0.4) K/mm3 Baso # 0.1 (0.0-0.1) K/mm3 Seg Neutrophils % 78.0 H (40.0-70.0) % Seg Neutrophils # 8.3 H (1.8-7.7) K/mm3 Sodium 130 L (137-145) mmol/L Potassium 4.2 (3.6-5.0) mmol/L Chloride 85.9 L (98-107) mmol/L Carbon Dioxide 14 L (22-30) mmol/L Anion Gap 34 mmol/L BUN 31 H (9-20) mg/dL Creatinine 1.4 (0.8-1.5) mg/dL Estimated GFR 60 ml/min BUN/Creatinine Ratio 22 % Glucose 454 H (75-100) mg/dL Calcium 8.7 (8.4-10.2) mg/dL Troponin T 0.022 0.026 (0.00-0.029) ng/mL 01/30/17 Range/Units 22:58 WBC (4.5-11.0) K/mm3 RBC (3.65-5.03) M/mm3 Hgb (11.8-15.2) gm/dl Hct (35.5-45.6) % MCV (84-94) fl MCH (28-32) pg MCHC (32-34) % RDW (13.2-15.2) % Plt Count (140-440) K/mm3 Lymph % (Auto) (13.4-35.0) % Rowan % (Auto) (0.0-7.3) % Eos % (Auto) (0.0-4.3) % Baso % (Auto) (0.0-1.8) % Lymph # (1.2-5.4) K/mm3 Rowan # (0.0-0.8) K/mm3 Eos # (0.0-0.4) K/mm3 Baso # (0.0-0.1) K/mm3 Seg Neutrophils % (40.0-70.0) % Seg Neutrophils # (1.8-7.7) K/mm3 Sodium (137-145) mmol/L Potassium (3.6-5.0) mmol/L Chloride (98-107) mmol/L Carbon Dioxide (22-30) mmol/L Anion Gap mmol/L BUN (9-20) mg/dL Creatinine (0.8-1.5) mg/dL Estimated GFR ml/min BUN/Creatinine Ratio % Glucose (75-100) mg/dL Calcium (8.4-10.2) mg/dL Troponin T 0.023 (0.00-0.029) ng/mL - EKG Data -: EKG Interpreted by Me - EKG Data 01/31/17 01:20 EKG #1 demonstrates sinus tachycardia, 108 beats a minute, poor R wave progression, Q waves noted in the inferior leads, abnormal EKG, nonspecific changes compared to prior. EKG #2 demonstrates sinus tachycardia, normal axis, normal intervals, nonspecific ST elevation in the inferior leads, Q waves noted in the inferior leads, no reciprocal changes, not morphologically consistent with STEMI. EKG #3 unchanged, ST elevation in inferior leads as prominent. EKG #4, right-sided leads, does not demonstrates inferior wall STEMI. - Radiology Data Radiology results: report reviewed, image reviewed interpreted by me: X-ray of the chest, interpreted by me as negative Print Report Referring Physician: FIDEL ÁLVAREZ Patient Name: WHITNEY ARBOLEDA Date of : 1985 Sex: Male Report Date: 2017-01-30 Report Status: Finalized Findings [facility] [address] [place] [address] XRay Report Signed Patient: WHITNEY ARBOLEDA MR#: [id number] : 1985 Acct:[id number] Age/Sex: 31 / M ADM Date: 01/30/17 Loc: ED Attending Dr: Ordering Physician: FIDEL ÁLVAREZ MD Date of Service: 01/30/17 Procedure(s): XR wrist 3+V LT Accession Number(s): [id number] cc: FIDEL ÁLVAREZ MD Fluoro Time In Minutes: FINAL REPORT PROCEDURE: XR WRIST 3+V LT TECHNIQUE: LEFT wrist radiographs, including AP, lateral, and oblique views. CPT 22402 HISTORY: Fall with deformity. COMPARISON: Fall with deformity. FINDINGS: Fracture (s) and/or Dislocation(s): Moderately comminuted and mildly impacted distal radial fracture. This has slight dorsal apex angulation. There is extension to the articular surface of the radiocarpal joint with largest area of diastasis at the articular surface measuring 2.5 millimeters. Minimally displaced ulnar styloid fracture. Lucency through the midbody of the hamate and triquetrum. Alignment: Normal . Joint space(s): Normal . Soft tissues: Normal . Bone mineralization: Mild osteopenia. Foreign bodies: None . IMPRESSION: Posttraumatic distal radial and ulnar fractures. Lucency through the midbody of the hamate and triquetrum, could be related to patient positioning. Consider attention on followup radiographs or even CT scan if there is concern for subtle fracture of the hamate and/or triquetrum. Mild osteopenia. Transcribed By: MIO Dictated By: PK JOHNSON MD Electronically Authenticated By: PK JOHNSON MD Signed Date/Time: 01/30/17 1588 Critical Care Time: Yes Critical care time in (mins) excluding proc time.: 35 Critical care attestation.: If time is entered above; I have spent that time in minutes in the direct care of this critically ill patient, excluding procedure time. ED Disposition Clinical Impression: DKA (diabetic ketoacidosis), Chest pain Disposition: OP ADMIT IP TO THIS HOSP Is pt being admited?: Yes Does the pt Need Aspirin: Yes Condition: Stable
[2017-01-31] MEDS ORDERED: D50W (25GM) Syringe IV PRN ×3 (00:21→13:22)
[2017-01-31] MEDS ORDERED: BENTYL PO ONE (00:22)
[2017-01-31] MEDS ORDERED: CARAFATE PO ONE (00:22)
[2017-01-31] MEDS ORDERED: PEPCID IV ONE (00:22)
[2017-01-31 00:24] LABS: Bacteria,Urine 1+ /HPF (Negative); Bilirubin,Urine NEG (Negative); Blood,Urine NEG (Negative); Granular Casts,Urine 14 /LPF; Ketones,Urine 20 mg/dL (Negative); Leukocyte Esterase,Urine NEG (Negative); Mucus,Urine FEW /HPF; Nitrite,Urine NEG (Negative)
--- NOTE | 2017-01-31 00:39 | XRay Report ---
FINAL REPORT EXAM: XR CHEST 1V AP HISTORY: cp sob COMPARISON: CT of the chest from September 2016. FINDINGS: Frontal view(s) of the chest obtained. Cardiac silhouette within normal limits. No gross consolidation or effusion. No pneumothorax. IMPRESSION: No grossly acute findings.
[2017-01-31] MEDS ORDERED: D5W/0.45% NACL/KCL 20 MEQ 20 MEQ/1,000 ML BAG IV SCH ×2 (01:00→03:00)
[2017-01-31] MEDS ORDERED: NovoLIN R 100 UNITS in NACL 0.9% 99 ML IV SCH ×2 (01:00→03:00)
[2017-01-31 01:41] LABS: Anion Gap 25 mmol/L; BUN/Creatinine Ratio 29; Blood Urea Nitrogen 35 mg/dL (9-20); Calcium 8.2 mg/dL (8.4-10.2); Carbon Dioxide 17 mmol/L (22-30); Chloride 90.6 mmol/L (98-107); Potassium 4.9 mmol/L (3.6-5.0); Sodium 128 mmol/L (137-145)
[2017-01-31 01:45] LABS: INR 0.92 (0.87-1.13)
[2017-01-31] MEDS ORDERED: NACL 0.9% 1000 ML 1,000 ML ONE (01:47)
[2017-01-31 01:51] LABS: Magnesium 2.1 mg/dL (1.7-2.3); Phosphorous 3.6 mg/dL (2.5-4.5)
[2017-01-31 01:55] LABS: Glucose 513 mg/dL (75-100)
[2017-01-31] MEDS ORDERED: NACL 0.9% 1000 ML 1,000 ML IV ONE (02:14)
[2017-01-31] MEDS ORDERED: REGLAN IV PRN (02:21)
[2017-01-31] MEDS ORDERED: NITROSTAT SL PRN (02:24)
[2017-01-31] MEDS ORDERED: TYLENOL PR PRN (02:25)
[2017-01-31] MEDS ORDERED: NACL 0.9% 1000 ML 1,000 ML IV SCH (03:00)
[2017-01-31] MEDS: NITRO-BID 2% TP SCH ×4 (03:42→22:01)
[2017-01-31 04:27] LABS: BUN/Creatinine Ratio 27; Blood Urea Nitrogen 32 mg/dL (9-20); Calcium 7.8 mg/dL (8.4-10.2); Carbon Dioxide 17 mmol/L (22-30); Glucose 469 mg/dL (75-100)
[2017-01-31 04:28] LABS: Anion Gap 22 mmol/L; Chloride 96.5 mmol/L (98-107); Potassium 4.6 mmol/L (3.6-5.0); Sodium 131 mmol/L (137-145)
--- NOTE | 2017-01-31 05:21 | History and Physical Report ---
CHIEF COMPLAINT: Chest pain. HISTORY OF PRESENT ILLNESS: The patient is a 31-year-old male with known history of diabetes mellitus, having had multiple hospital visits because of DKA that presents this time with retrosternal and precordial chest pain that does not radiate. Pain is associated with shortness of breath, weakness and dizziness, but no diaphoresis, no nausea and no vomiting. The patient was evaluated in the Emergency Room. The patient also complained about tripping and falling onto his left forearm a few weeks ago with pain to the left forearm and wrist area. PAST MEDICAL HISTORY: Pertinent for diabetes mellitus with multiple diabetic ketoacidosis, also the patient has past medical history of staphylococcal infection. PAST SURGICAL HISTORY: Pertinent for neck and back surgery involving wound debridement. FAMILY HISTORY: Noncontributory. SOCIAL HISTORY: The patient does not smoke, does not drink alcohol and does not use illicit drugs. MEDICATIONS: The patient is on Keflex 500 mg every 6 hours, which he took for 14 days. The patient is also on 70/30 insulin, 15 units subQ twice daily; on K-Phos Neutral 250 mg 4 times a day and Ultram 25 mg every 4 hours as needed for pain. ALLERGIES: THE PATIENT IS ALLERGIC TO CODEINE, ZOFRAN, HYDROCODONE BITARTRATE. REVIEW OF SYSTEMS: CONSTITUTIONAL: There is no fever, no chills, no diaphoresis. HEENT: There is no headache or sore throat. CARDIOVASCULAR: Chest pain is present. No orthopnea. RESPIRATORY: Shortness of breath is present. No cough. GASTROINTESTINAL: There is no nausea, no vomiting, no abdominal pain, diarrhea or constipation. NEUROLOGICAL: There is no numbness, no dizziness, no altered mental status. MUSCULOSKELETAL: Pain in the left forearm and wrist area noted. There is no joint swelling. DERMATOLOGICAL: There is no skin rash or itching. GENITOURINARY: There is no dysuria, hematuria or flank pain. Rest of system review is normal. PHYSICAL EXAMINATION: GENERAL: At the time of exam, the patient was found to be alert, oriented x 3, not in acute distress. VITAL SIGNS: This shows temperature of 97.5 degree Fahrenheit, pulse of 112, respirations 18, blood pressure 108/65, O2 sat of 97% to 100% on room air. HEENT: Pupils to be equal, round, reactive to light and accommodative. Extraocular muscles are intact. NECK: Supple with no JVD or carotid bruit. CARDIOVASCULAR: Shows first and second heart sounds, with no gallops or murmurs. RESPIRATORY: Shows good air entry on both sides of the lung with no abnormal breath sounds. GASTROINTESTINAL: Shows abdomen to be full, soft, nontender with no organomegaly or rigidity. NEUROLOGIC: Shows no focal deficits. MUSCULOSKELETAL: Shows tenderness in the left wrist area with no joint swelling noted. DERMATOLOGICAL: Showed no skin rash. GENITOURINARY: Showed no costovertebral angle tenderness. PERTINENT LABORATORY DATA AND IMAGING STUDIES: The patient had x-ray of the left wrist done that show posttraumatic distal radial and ulnar fractures. According to the radiology, he says that lucency through the mid and triquetrum could be related to the patient's position and consider that the patient on followup radiograph or even CT scan if there is concern for subtle fractures of mid and of triquetrum. The patient's lab results shows CBC with normal white count, low hemoglobin of 11.6, low hematocrit of 35.2 with a low MCV of 78. CBC differential shows high neutrophil count of 78%. Coagulation studies were unremarkable. The patient's initial chemistry shows low sodium of 130 with low chloride of 85.9 and low CO2 of 14 and anion gap of 30 with high BUN of 31 and high glucose of 154. Troponin level came back unremarkable. Urinalysis was unremarkable. DIAGNOSES: 1. Diabetic ketoacidosis. 2. Chest pain. 3. Left wrist sprain. PLAN: The patient will be admitted to ICU because of DKA and will continue insulin drip according to DKA pathway. The patient will be on IV normal saline running at 300 mL an hour and will have basic metabolic panel checked every 2 hours. The patient will have Accu-Chek every hour until the patient is out of DKA and will remain n.p.o. The patient will have cardiac enzymes, troponin, total CK and CK-MB checked q. 6 hours x 2. The patient will also be on nitro paste. The patient will also be on nitro paste 0.5 inch to anterior chest wall q. 6 hours and will be on sublingual nitroglycerin for breakthrough chest pain. The patient will be on IV Reglan 10 mg every 6 hours as needed for nausea and vomiting since the patient is ALLERGIC TO ZOFRAN and will be on heparin 5000 units subQ q. 12 hours for DVT prophylaxis. The patient will remain n.p.o. and will be on oxygen via nasal cannula and will continue Cardiology consult with Dr. Siddharth Bangura by the Emergency Room for evaluation of chest pain. The patient has already had a critical care consult with the Dr. Morales for ICU admission for DKA. We will have magnesium and phosphorus level checked. The patient will be on aspirin 325 mg by mouth daily and Tylenol 650 mg rectally every 4 hours for fever and headache. The patient's treatment for DKA will be per protocol. The patient will remain n.p.o. until seen by the nurse companion and until the patient is out of DKA. JOB# [id number] OCN/NTS
[2017-01-31 08:59] LABS: Anion Gap 21 mmol/L; BUN/Creatinine Ratio 31; Blood Urea Nitrogen 28 mg/dL (9-20); Calcium 7.5 mg/dL (8.4-10.2); Carbon Dioxide 16 mmol/L (22-30); Chloride 98.5 mmol/L (98-107); Glucose 270 mg/dL (75-100); Potassium 4.4 mmol/L (3.6-5.0); Sodium 131 mmol/L (137-145)
[2017-01-31 09:12] LABS: Creatine Kinase MB 7.7 ng/mL (0.0-4.0)
[2017-01-31] MEDS: HEPARIN SUB-Q SCH ×2 (09:31→22:01)
[2017-01-31] MEDS: ASPIRIN PO SCH (09:31)
[2017-01-31 13:10] LABS: Anion Gap 15 mmol/L; BUN/Creatinine Ratio 24; Blood Urea Nitrogen 22 mg/dL (9-20); Calcium 7.9 mg/dL (8.4-10.2); Carbon Dioxide 20 mmol/L (22-30); Chloride 100.6 mmol/L (98-107); Glucose 80 mg/dL (75-100); Potassium 3.9 mmol/L (3.6-5.0); Sodium 132 mmol/L (137-145)
--- NOTE | 2017-01-31 13:16 | Event Note ---
Date: 01/31/17 Patient was seen and evaluated, he is admitted for DKA and abnormal EKG. Cardiology and gear grinding machine operator consulted patient is hold in the ED for ICU admission. If he is out of DKA he can be downgrade to telemetry.
--- NOTE | 2017-01-31 14:24 | Consultation ---
History of Present Illness Consult date: 01/31/17 Requesting physician: NEIL VALADEZ Consult reason: chest pain History of present illness: The patient is frequently admitted for DKA. This time, he claims that he started experiencing right-sided chest pressure 3 days ago. Yesterday, while at work, he became dizzy, sustaining a fall without loss of consciousness. He then decided to present to the emergency department. X-ray of his left wrist revealed distal radial and ulna fractures. He claims that as of this morning, his chest pain has completely resolved. In fact, he is asking to be discharged to go home. He has been found to have DKA this time as well. Notably, he had a negative stress test in September 2016. Echocardiogram revealed normal LV systolic function. Past History Past Medical History: diabetes, other (Frequent hospitalization for DKA. Negative stress test in September 2016. Normal LV systolic function on echocardiogram; staphylococcal infection.) Past Surgical History: Other Social history: denies: smoking, alcohol abuse Family history: denies: CAD Medications and Allergies Allergies Allergy/AdvReac Type Severity Reaction Status Date / Time codeine Allergy Hives Verified 08/14/16 07:20 ondansetron HCl [From Zofran] Allergy Hives Verified 08/14/16 07:20 hydrocodone bitartrate AdvReac Headache Verified 08/14/16 07:20 [From Lortab] Home Medications Medication Instructions Recorded Confirmed Last Taken Type Cephalexin [Keflex] 500 mg PO Q6HR 14 Days capsule 11/09/16 Unknown Rx Insulin NPH/Regular [NovoLIN 70/30] 15 unit SUB-Q BIDDIAB 30 Days 11/09/16 Unknown Rx units Phosphorus #1 [K-Phos Neutral] 250 mg PO QID #30 tablet 11/09/16 Unknown Rx traMADol [Ultram 50 MG tab] 25 mg PO Q4H PRN #14 tablet 11/09/16 Unknown Rx Active Meds: Active Medications Acetaminophen (Tylenol) 650 mg MS Q4H PRN PRN Reason: Pain, Mild (1-3) Aspirin (Aspirin) 325 mg PO QDAY SHARATH Last Admin: 01/31/17 09:31 Dose: 325 mg Dextrose (D50w (25gm) Syringe) 0 ml IV PRN PRN PRN Reason: Hypoglycemia Dextrose (D50w (25gm) Syringe) 50 ml IV PRN PRN PRN Reason: Hypoglycemia Heparin Sodium (Porcine) (Heparin) 5,000 unit SUB-Q Q12HR SHARATH Last Admin: 01/31/17 09:31 Dose: 5,000 unit Potassium Chloride/Dextrose/Sod Cl (D5w/0.45% Nacl/Kcl 20 Meq) 20 meq in 1,000 mls @ 125 mls/hr IV DIRECT SHARATH Last Admin: 01/31/17 07:59 Dose: 125 mls/hr Insulin Human Regular 100 (units/ Sodium Chloride) 100 mls @ 1 mls/hr IV TITR SHARATH; 1 UNITS/HR PRN Reason: Protocol Stop: 01/31/17 19:00 Last Titration: 01/31/17 12:39 Dose: 0 units/hr, 0 mls/hr Sodium Chloride (Nacl 0.9% 1000 Ml) 1,000 mls @ 300 mls/hr IV DIRECT SHARATH Last Admin: 01/31/17 03:05 Dose: 300 mls/hr Insulin Aspart (Novolog) 0 units SUB-Q ACHS SHARATH PRN Reason: Protocol Insulin Human Isoph/Insulin Regular (Novolin 70/30) 15 unit SUB-Q BIDDIAB SHARATH Metoclopramide HCl (Reglan) 10 mg IV Q6H PRN PRN Reason: Nausea And Vomiting Nitroglycerin (Nitrostat) 0.4 mg SL .Q5MIN PRN PRN Reason: Chest Pain Nitroglycerin (Nitro-Bid 2%) 0.5 inch TP Q6H SHARATH PRN Reason: Protocol Last Admin: 01/31/17 08:56 Dose: Not Given Review of Systems Constitutional: no fever, no chills Ears, nose, mouth and throat: no ear pain, no ear discharge, no sore throat Cardiovascular: chest pain, lightheadedness, no palpitations, no syncope Respiratory: no cough, no hemoptysis, no shortness of breath Gastrointestinal: no abdominal pain, no nausea, no vomiting, no diarrhea, no constipation Genitourinary Male: no dysuria, no urinary frequency Rectal: no pain, no bleeding Musculoskeletal: no neck stiffness, no neck pain, no myalgias Integumentary: no rash, no pruritis Neurological: no weakness, no parathesias, no numbness, no headaches Endocrine: no cold intolerance, no heat intolerance Hematologic/Lymphatic: no easy bruising, no easy bleeding Allergic/Immunologic: no urticaria, no wheezing Physical Examination Vital Signs Last Vital Signs Temp 97.5 F L 01/30/17 20:50 Pulse 109 H 01/31/17 11:00 Resp 22 01/31/17 07:00 BP 102/70 01/31/17 13:00 Pulse Ox 100 01/31/17 13:00 General appearance: no acute distress HEENT: Positive: EOMI, Normocephaly, Mucus Membranes Moist Neck: Positive: neck supple, trachea midline Cardiac: Positive: Reg Rate and Rhythm, S1/S2 Lungs: Positive: clear to auscultation Neuro: Positive: Grossly Intact Abdomen: Positive: Soft, Active Bowel Sounds. Negative: Tender Skin: Positive: Clear. Negative: Rash Musculoskeletal: Normal Range of Motion Extremities: Present: normal. Absent: edema Results 01/30/17 17:19 01/31/17 12:39 Cardiac Enzymes 01/31/17 01/31/17 Range/Units 08:23 12:39 CK-MB (CK-2) 7.7 H 7.0 H (0.0-4.0) ng/mL Coagulation 01/31/17 Range/Units 00:53 PT 12.8 (12.2-14.9) Sec. INR 0.92 (0.87-1.13) CBC 01/30/17 Range/Units 17:19 WBC 10.6 (4.5-11.0) K/mm3 RBC 4.50 (3.65-5.03) M/mm3 Hgb 11.6 L (11.8-15.2) gm/dl Hct 35.2 L (35.5-45.6) % Plt Count 393 (140-440) K/mm3 Lymph # 1.5 (1.2-5.4) K/mm3 Bladen # 0.7 (0.0-0.8) K/mm3 Eos # 0.0 (0.0-0.4) K/mm3 Baso # 0.1 (0.0-0.1) K/mm3 Comprehensive Metabolic Panel 01/30/17 01/31/17 01/31/17 Range/Units 17:19 00:53 03:52 Sodium 130 L 128 L 131 L (137-145) mmol/L Potassium 4.2 4.9 4.6 (3.6-5.0) mmol/L Chloride 85.9 L 90.6 L 96.5 L (98-107) mmol/L Carbon Dioxide 14 L 17 L 17 L (22-30) mmol/L BUN 31 H 35 H 32 H (9-20) mg/dL Creatinine 1.4 1.2 1.2 (0.8-1.5) mg/dL Glucose 454 H 513 H* 469 H (75-100) mg/dL Calcium 8.7 8.2 L 7.8 L (8.4-10.2) mg/dL 01/31/17 01/31/17 Range/Units 08:23 12:39 Sodium 131 L 132 L (137-145) mmol/L Potassium 4.4 3.9 (3.6-5.0) mmol/L Chloride 98.5 100.6 (98-107) mmol/L Carbon Dioxide 16 L 20 L (22-30) mmol/L BUN 28 H 22 H (9-20) mg/dL Creatinine 0.9 0.9 (0.8-1.5) mg/dL Glucose 270 H 80 (75-100) mg/dL Calcium 7.5 L 7.9 L (8.4-10.2) mg/dL - Imaging and Cardiology EKG: image reviewed EKG interpretations - Telemetry EKG Rhythm: Sinus Rhythm - EKG Sinus rhythms and dysrhythmias: sinus rhythm Assessment and Plan With his recent negative stress test and atypical chest pain, no indication for further cardiac evaluation at this time. Intravenous fluids as you're doing. - Patient Problems (1) Chest pain Current Visit: Yes Status: Acute (2) DKA (diabetic ketoacidosis) Current Visit: Yes Status: Acute
[2017-01-31 16:15] LABS: Anion Gap 19 mmol/L; BUN/Creatinine Ratio 21; Blood Urea Nitrogen 21 mg/dL (9-20); Calcium 7.5 mg/dL (8.4-10.2); Carbon Dioxide 19 mmol/L (22-30); Glucose 332 mg/dL (75-100); Potassium 5.2 mmol/L (3.6-5.0); Sodium 131 mmol/L (137-145)
[2017-01-31] MEDS ORDERED: NOVOLOG SUB-Q SCH (16:30)
[2017-01-31 19:21] LABS: Anion Gap 21 mmol/L; BUN/Creatinine Ratio 18; Blood Urea Nitrogen 22 mg/dL (9-20); Calcium 7.6 mg/dL (8.4-10.2); Carbon Dioxide 17 mmol/L (22-30); Chloride 94.9 mmol/L (98-107); Sodium 127 mmol/L (137-145)
[2017-01-31 19:33] LABS: Glucose 549 mg/dL (75-100)
[2017-01-31 19:40] LABS: Potassium 6.3 mmol/L (3.6-5.0)
[2017-01-31] MEDS: NOVOLOG SUB-Q SCH (20:32)
[2017-01-31] MEDS ORDERED: KIONEX PO ONE (20:55)
[2017-01-31] MEDS ORDERED: CALCIONATE PO ONE (21:00)
[2017-01-31] MEDS ORDERED: CALCIUM GLUCONATE 1,000 MG in NACL 0.9% 100 ML IV ONE (21:19)
[2017-02-01] MEDS: NOVOLOG SUB-Q SCH ×3 (01:17→12:33)
[2017-02-01 01:34] LABS: Anion Gap 20 mmol/L; BUN/Creatinine Ratio 20; Blood Urea Nitrogen 18 mg/dL (9-20); Calcium 8.2 mg/dL (8.4-10.2); Carbon Dioxide 19 mmol/L (22-30); Chloride 99.4 mmol/L (98-107); Glucose 156 mg/dL (75-100); Potassium 3.9 mmol/L (3.6-5.0); Sodium 134 mmol/L (137-145)
[2017-02-01 02:53] LABS: Calcium 8.4 mg/dL (8.4-10.2); Chloride 100.1 mmol/L (98-107); Potassium 3.4 mmol/L (3.6-5.0)
[2017-02-01 04:49] LABS: Basophils % (Auto) 0.6 % (0.0-1.8); Eosinophils % (Auto) 2.6 % (0.0-4.3); Hematocrit 25.9 % (35.5-45.6); Hemoglobin 8.5 gm/dl (11.8-15.2); Mean Corpuscular HGB Conc 33 % (32-34); Mean Corpuscular Volume 76 fl (84-94); Platelet Count 298 K/mm3 (140-440); Red Blood Count 3.39 M/mm3 (3.65-5.03); Red Cell Distribution Width 14.9 % (13.2-15.2); White Blood Count 5.5 K/mm3 (4.5-11.0)
[2017-02-01 04:54] LABS: Mean Corpuscular Hemoglobin 25 pg (28-32)
[2017-02-01 05:13] LABS: Anion Gap 20 mmol/L; BUN/Creatinine Ratio 20; Blood Urea Nitrogen 18 mg/dL (9-20); Calcium 8.1 mg/dL (8.4-10.2); Carbon Dioxide 18 mmol/L (22-30); Chloride 97.7 mmol/L (98-107); Glucose 133 mg/dL (75-100); Potassium 3.7 mmol/L (3.6-5.0); Sodium 132 mmol/L (137-145)
[2017-02-01] MEDS: NITRO-BID 2% TP SCH ×2 (06:13→09:02)
[2017-02-01 06:56] VITALS: BP 108/74
--- NOTE | 2017-02-01 10:15 | Progress Note ---
Assessment and Plan With his recent negative stress test and atypical chest pain which has now resolved, no indication for further cardiac evaluation at this time. Currently stable cardiac status. Pt may discharge home from cardiology standpoint. Recommend follow up in our office with Sintia Manuel NP, within 1-2 weeks of hospital discharge ([phone]). The patient has been seen in conjunction with Dr. Galdamez who agrees with the assessment and plan of care. - Patient Problems (1) Chest pain Current Visit: Yes Status: Acute (2) DKA (diabetic ketoacidosis) Current Visit: Yes Status: Acute Subjective Date of service: 02/01/17 Principal diagnosis: DKA; atypical chest pain Interval history: Pt resting comfortably in bed, denies any current complaints. Objective Last Vital Signs Temp 98.0 F 02/01/17 04:09 Pulse 118 H 02/01/17 00:00 Resp 18 02/01/17 04:09 BP 108/74 02/01/17 04:09 Pulse Ox 97 01/31/17 23:34 - Physical Examination General: No Apparent Distress HEENT: Positive: EOMI, Normocephaly, Mucus Membranes Moist Neck: Positive: neck supple, trachea midline Cardiac: Positive: Reg Rate and Rhythm, S1/S2 Lungs: Positive: clear to auscultation Neuro: Positive: Grossly Intact Abdomen: Positive: Soft, Active Bowel Sounds. Negative: Tender Skin: Positive: Clear. Negative: Rash Musculoskeletal: Normal Range of Motion Extremities: Present: normal. Absent: edema - Labs and Meds Cardiac Enzymes 01/31/17 Range/Units 12:39 CK-MB (CK-2) 7.0 H (0.0-4.0) ng/mL CBC 02/01/17 Range/Units 03:38 WBC 5.5 (4.5-11.0) K/mm3 RBC 3.39 L (3.65-5.03) M/mm3 Hgb 8.5 L D (11.8-15.2) gm/dl Hct 25.9 L D (35.5-45.6) % Plt Count 298 (140-440) K/mm3 Lymph # 1.4 (1.2-5.4) K/mm3 Lander # 0.5 (0.0-0.8) K/mm3 Eos # 0.1 (0.0-0.4) K/mm3 Baso # 0.0 (0.0-0.1) K/mm3 Comprehensive Metabolic Panel 01/31/17 01/31/17 01/31/17 Range/Units 12:39 15:19 18:16 Sodium 132 L 131 L 127 L (137-145) mmol/L Potassium 3.9 5.2 H D 6.3 H* D (3.6-5.0) mmol/L Chloride 100.6 98.0 94.9 L (98-107) mmol/L Carbon Dioxide 20 L 19 L 17 L (22-30) mmol/L BUN 22 H 21 H 22 H (9-20) mg/dL Creatinine 0.9 1.0 1.2 (0.8-1.5) mg/dL Glucose 80 332 H 549 H* (75-100) mg/dL Calcium 7.9 L 7.5 L 7.6 L (8.4-10.2) mg/dL 02/01/17 02/01/17 02/01/17 Range/Units 00:46 02:16 03:38 Sodium 134 L D 136 L 132 L (137-145) mmol/L Potassium 3.9 D 3.4 L 3.7 (3.6-5.0) mmol/L Chloride 99.4 100.1 97.7 L (98-107) mmol/L Carbon Dioxide 19 L 21 L 18 L (22-30) mmol/L BUN 18 18 18 (9-20) mg/dL Creatinine 0.9 1.4 D 0.9 (0.8-1.5) mg/dL Glucose 156 H 112 H 133 H (75-100) mg/dL Calcium 8.2 L 8.4 8.1 L (8.4-10.2) mg/dL - Imaging and Cardiology EKG: image reviewed - Telemetry EKG Rhythm: Sinus Rhythm - EKG Sinus rhythms and dysrhythmias: sinus rhythm
--- NOTE | 2017-02-01 10:45 | Discharge Summary ---
Providers - Providers Date of Admission: 01/31/17 02:11 Attending physician: HARRY AYON MD 01/31/17 00:41 Consult to Physician [CONS] Urgent Consulting Provider: SINGH REYNOLDS Reason For Exam: cp abnormal ekg Place consult to:: Dr. Reynolds Notified:: Answering Service Phone number called:: [phone] Was contact made?: Yes If yes, spoke with:: Dr. Reynolds Time called:: 00:40 Comment:: Dr. De La Vega ( dr) spoke with Dr. Reynolds 01/31/17 02:15 Consult to Dietitian/Nutrition [CONS] Routine Physician Instructions: Reason For Exam: DKA Reason for Consult: Nutrition Recommendations Reason for Consult: Diet education 01/31/17 09:10 Consult to Physician [CONS] Routine Consulting Provider: BELA DOSHI Reason For Exam: left radioulnar fracture Place consult to:: Orthopedics Notified:: yes Was contact made?: Yes If yes, spoke with:: gee Time called:: 08:48 Comment:: call attmepted 01/31/17-no weekend coverage. please call 02/01/17 Primary care physician: PRACTICE NURSE Hospitalization Reason for admission: DKA, chest pain Condition: Stable Pertinent studies: Cardiac stress test negative for acute WA Hospital course: 31-year-old male with past medical history significant for type 1 diabetes mellitus was admitted to our service for the management of chest pain and DKA. He was started management for DKA while he was in the emergency department and DKA resolved and he was admitted to telemetry floor. Cardiac enzymes are negative, EKG normal sinus rhythm, cardiac stress test was done and negative for acute WA. Patient was chest pain-free, and he was continued his home dose of insulin and sliding insulin. Cardiology was consulted and recommended discharge from cardiac point of view. Patient discharged home in a stable condition. Patient said he has on his medication at home and doesn't need any at this time. Patient's questions and concerns were addressed at the bedside. Disposition: DC-01 TO HOME OR SELFCARE Time spent for discharge: 31 minutes - Discharge Diagnoses (1) Chest pain Status: Acute (2) DKA (diabetic ketoacidosis) Status: Acute Core Measure Documentation - Palliative Care Palliative Care/ Comfort Measures: Not Applicable - Core Measures Any of the following diagnoses?: none Exam - Physical Exam Narrative exam: Not in cardiopulmonary distress. The patient is emaciated. Vital signs as documented. Head exam is unremarkable. No scleral icterus . Neck is without jugular venous distension, thyromegaly, or carotid bruits. Lungs are clear to auscultation. Cardiac exam reveals regular rate and Rhythm. First and second heart sounds normal. No murmurs, rubs or gallops. Abdominal exam reveals normal bowel sounds, no masses, no organomegaly and no aortic enlargement. Extremities are nonedematous and both femoral and pedal pulses are normal. REAL ESTATE LISTING CONSULTANT: Alert and oriented 3. No focal weakness. - Constitutional Vitals: Temp Pulse Resp BP Pulse Ox 98.0 F 118 H 18 108/74 97 02/01/17 04:09 02/01/17 00:00 02/01/17 04:09 02/01/17 04:09 01/31/17 23:34 Plan Activity: no restrictions Weight Bearing Status: Full Weight Bearing Diet: diabetic Follow up with: [facility] [Provider Group] - 7 Days PRIMARY CARE, [Primary Care Provider] - 3-5 Days Forms: Discharge Signature Page, Work/School Release Form
[2017-02-01] MEDS: ASPIRIN PO SCH (11:50)
[2017-02-01] MEDS: HEPARIN SUB-Q SCH (11:51)
== END 2017-02-01 13:55 | disposition home or self-care (01) | DRG 639 ==
LOC: ED 16:46 → CC1 01-31 02:11 → 4A 01-31 14:39
PROVIDERS: ADMIT Internal Medicine; ATTEND Internal Medicine
DX: E11.10 Type 2 diabetes mellitus with ketoacidosis without coma (principal); R07.9 Chest pain, unspecified; Z88.5 Allergy status to narcotic agent; Z88.1 Allergy status to other antibiotic agents; Z88.8 Allergy status to other drugs, medicaments and biological substances; Z79.899 Other long term (current) drug therapy; Z79.4 Long term (current) use of insulin
CPT/HCPCS: 36415; 71010; 80048; 81001; 82140; 82550; 82553; 82805; 82962; 83735; 84100; 84484; 85025; 85379; 85610; 93005; 93010; 96361; 96365; 96375; 96376; J0610; J1644; J1815; J7030

== ENCOUNTER 2017-02-11 22:33 | Inpatient (IN) | payer SELFPAY ==
[2017-02-12 02:09] LABS: Anion Gap 19 mmol/L; BUN/Creatinine Ratio 19; Blood Urea Nitrogen 13 mg/dL (9-20); Calcium 8.7 mg/dL (8.4-10.2); Carbon Dioxide 21 mmol/L (22-30); Chloride 96.3 mmol/L (98-107); Glucose 152 mg/dL (75-100); Potassium 3.3 mmol/L (3.6-5.0); Sodium 133 mmol/L (137-145)
[2017-02-12 02:12] LABS: Basophils % (Auto) 0.5 % (0.0-1.8); Eosinophils % (Auto) 1.1 % (0.0-4.3); Hematocrit 24.7 % (35.5-45.6); Hemoglobin 8.3 gm/dl (11.8-15.2); Mean Corpuscular HGB Conc 34 % (32-34); Mean Corpuscular Volume 77 fl (84-94); Platelet Count 293 K/mm3 (140-440); Red Cell Distribution Width 15.4 % (13.2-15.2); White Blood Count 7.1 K/mm3 (4.5-11.0)
[2017-02-12 02:18] LABS: Mean Corpuscular Hemoglobin 26 pg (28-32)
[2017-02-12] MEDS ORDERED: NACL 0.9% 1000 ML 1,000 ML IV ONE (03:20)
[2017-02-12] MEDS ORDERED: CLEOCIN 600 MG/50 mL 600 MG/50 ML BAG IV ONE (03:27)
--- NOTE | 2017-02-12 03:28 | Emergency Department Report ---
- General Chief complaint: Skin/Abscess/Foreign Body Stated complaint: RT FACIAL SWELLING Time Seen by Provider: 02/12/17 03:14 Source: patient Mode of arrival: Ambulatory Limitations: No Limitations - Related Data Previous Rx's Medication Instructions Recorded Last Taken Type Insulin NPH/Regular [NovoLIN 70/30] 15 unit SUB-Q BIDDIAB 30 Days 11/09/1601/31 Rx units Allergies Allergy/AdvReac Type Severity Reaction Status Date / Time codeine Allergy Hives Verified 08/14/16 07:20 ondansetron HCl [From Zofran] Allergy Hives Verified 08/14/16 07:20 hydrocodone bitartrate AdvReac Headache Verified 08/14/16 07:20 [From Lortab] Abscess Boil HPI - HPI Chief Complaint: Skin/Abscess/Foreign Body Stated Complaint: RT FACIAL SWELLING Time Seen by Provider: 02/12/17 03:14 Duration: 4 Days History: Yes Purulent Drainage, Yes Previous History, No Fever HPI: 31 YO MALE TYPE I DM HERE WITH C/O MULTIPLE SKIN ABSCESS WITH FACIAL SWELLING. PT HAD AN ABSCESS ON RIGHT FOREHEAD FOR 4 DAYS AND IT BECAME BETTER FOR 3 DAYS THEN TODAY HE STARTED TO HAVE FACIAL SWELLING AROUND AROUND HIS EYES. HE HAS HAD STAPH INFECTIONS IN THE PAST AND FEELS IT IS BACK. Home Medications: Previous Rx's Medication Instructions Recorded Last Taken Type Insulin NPH/Regular [NovoLIN 70/30] 15 unit SUB-Q BIDDIAB 30 Days 11/09/1601/31 Rx units Allergies/Adverse Reactions: Allergies Allergy/AdvReac Type Severity Reaction Status Date / Time codeine Allergy Hives Verified 08/14/16 07:20 ondansetron HCl [From Zofran] Allergy Hives Verified 08/14/16 07:20 hydrocodone bitartrate AdvReac Headache Verified 08/14/16 07:20 [From Lortab] ED Review of Systems ROS: Stated complaint: RT FACIAL SWELLING Other details as noted in HPI Constitutional: denies: chills, fever Eyes: other (SWELLING AROUND THE EYES). denies: eye pain, eye discharge, vision change ENT: denies: ear pain, throat pain Respiratory: denies: cough, shortness of breath, wheezing Cardiovascular: denies: chest pain, palpitations Gastrointestinal: denies: abdominal pain, nausea, diarrhea Genitourinary: denies: urgency, dysuria Musculoskeletal: denies: back pain, joint swelling, arthralgia Skin: rash, lesions (ABSCESS IN RIGTH FRONTAL FOREHEAD AND TOP OF HEAD) Neurological: denies: headache, weakness, paresthesias Psychiatric: denies: anxiety, depression Hematological/Lymphatic: denies: easy bleeding, easy bruising ED Past Medical Hx - Past Medical History Previous Medical History?: Yes Hx Congestive Heart Failure: No Hx Diabetes: Yes (TYPE I) Hx Asthma: No Hx COPD: No Hx HIV: No Additional medical history: staph infection, CHEST DEFORMITY - Surgical History Past Surgical History?: Yes Additional Surgical History: wound debridement (staph infection)--NECK AND BACK - Family History Family history: hypertension - Social History Smoking Status: Never Smoker Substance Use Type: None - Medications Home Medications: Home Medications Medication Instructions Recorded Confirmed Last Taken Type Insulin NPH/Regular [NovoLIN 70/30] 15 unit SUB-Q BIDDIAB 30 Days 11/09/1602/0101/31/17 Rx units ED Physical Exam - General Limitations: No Limitations General appearance: alert, in no apparent distress - Head Head exam: Present: atraumatic, normocephalic - Eye Eye exam: Present: normal appearance, EOMI, periorbital swelling (RIGHT GREATER THAN LEFT) - ENT ENT exam: Present: mucous membranes moist - Neck Neck exam: Present: normal inspection - Respiratory Respiratory exam: Present: normal lung sounds bilaterally. Absent: respiratory distress - Cardiovascular Cardiovascular Exam: Present: normal rhythm, tachycardia. Absent: systolic murmur, diastolic murmur, rubs, gallop - GI/Abdominal GI/Abdominal exam: Present: soft, normal bowel sounds - Rectal Rectal exam: Present: deferred - Extremities Exam Extremities exam: Present: normal inspection - Back Exam Back exam: Present: normal inspection, full ROM - Neurological Exam Neurological exam: Present: alert, oriented X3, CN II-XII intact - Psychiatric Psychiatric exam: Present: normal affect, normal mood - Skin Skin exam: Present: warm, dry, intact, normal color, rash, other (RIGHT FRONTAL FOREHEAD RED WITH SMALL ABSCESS SIGNS OF PRIOR DRAINING,FRONTAL SCALP WITH SMALL ABSCESS SIGNS OF DRAINING, SWELLING AROUNG HIS EYES RIGHT GRATER THATN LEFT) ED Course Vital Signs 02/12/17 02/12/17 00:38 03:15 Temperature 98.2 F 99.0 F Pulse Rate 117 H 117 H Respiratory 17 Rate Blood Pressure 93/64 Blood Pressure 115/79 [Left] O2 Sat by Pulse 99 99 Oximetry ED Medical Decision Making - Lab Data Result diagrams: 02/12/17 00:50 02/12/17 00:50 Critical care attestation.: If time is entered above; I have spent that time in minutes in the direct care of this critically ill patient, excluding procedure time. ED Disposition Clinical Impression: Staph aureus infection, Hyperglycemia due to type 1 diabetes mellitus Disposition: OP ADMIT IP TO THIS HOSP Is pt being admited?: Yes Does the pt Need Aspirin: No Condition: Stable Instructions: Diabetic Ketoacidosis (ED), Diabetes Mellitus Type 2 in Adults ( ED) Referrals: ROMEL MEDRANO MD [Primary Care Provider] - 3-5 Days Time of Disposition: 03:41 (DR DUTTA CALLED, CASE REVIEWED AND SHE SWILL ADMIT THE PT TO THE HOSPITAL)
[2017-02-12] MEDS ORDERED: K-DUR PO ONE (03:43)
[2017-02-12] MEDS ORDERED: DULCOLAX PR PRN (04:24)
[2017-02-12] MEDS ORDERED: MILK OF MAGNESIA PO PRN (04:24)
[2017-02-12] MEDS ORDERED: TYLENOL PO PRN (04:24)
--- NOTE | 2017-02-12 04:24 | History and Physical Report ---
History of Present Illness Date of examination: 02/12/17 History of present illness: 29-year-old man with a history of diabetes, CAD, MRSA comes to the emergency room because he developed a bump on his right side of the forehead after bumping it into an object. He has been taking several [id number] medications for it which she states improved. However today the bump increase in size and became red. Review Of Systems: Constitutional: no weight loss Ears, eyes, nose, mouth and throat: no nasal congestion, no nasal discharge, no sinus pressure, blurry vision, diplopia Neck: No neck pain or rigidity. Cardiovascular: No chest pain, palpitations Respiratory: No shortness of breath, cough Gastrointestinal: No abdominal pain, hematochezia Genitourinary : no dysuria, frequency , hematuria Musculoskeletal: no muscle ache Integumentary: no rash, no pruritis Neurological: no parathesias, focal weakness Endocrine: no cold or heat intolerance, no polyuria or polydipsia Hematologic/Lymphatic: no easy bruising, no easy bleeding, no gland swelling Allergic/Immunologic: no urticaria, no angioedema. PAST MEDICAL HISTORY: diabetes, CAD, MRSA PAST SURGICAL HISTORY:None FAMILY HISTORY:Diabetes, CAD SOCIAL HISTORY:Denies alcohol, tobacco, drugs Medications and Allergies Allergies Allergy/AdvReac Type Severity Reaction Status Date / Time codeine Allergy Hives Verified 08/14/16 07:20 ondansetron HCl [From Zofran] Allergy Hives Verified 08/14/16 07:20 hydrocodone bitartrate AdvReac Headache Verified 08/14/16 07:20 [From Lortab] Home Medications Medication Instructions Recorded Confirmed Last Taken Type Insulin NPH/Regular [NovoLIN 70/30] 15 unit SUB-Q BIDDIAB 30 Days 11/09/1602/0101/31/17 Rx units Exam - Physical Exam Narrative exam: Gen. appearance: Patient lying in bed, no apparent distress HEENT: Normocephalic, atraumatic, pupils equally round and reactive to light, extraocular movement intact, and no sclericterus,. No JVD or thyromegaly or nodule,neck supple, no carotid bruit ,mucous membranes moist, no exudate or erythema Heart: S1, S2, regular rate and rhythm Lungs: Clear to auscultation bilaterally, breathing comfortable Abdomen: Positive bowel sounds, nontender, nondistended, no organomegaly Extremity: Left foot swollen, warm to touch, positive erythema, No cyanosis, clubbing Skin: Right forehead late a carbuncle, tender to touch, erythema, also has a normal care on the left anterior aspect of scalp and one on the right upper back No rash, warm, dry Neuro: Oriented 3, cranial nerves II-12 intact, speech is fluent, motor and sensory intact - Constitutional Vitals: Temp Pulse Resp BP Pulse Ox 99.0 F 117 H 17 115/79 99 02/12/17 03:15 02/12/17 03:15 02/12/17 03:15 02/12/17 03:15 02/12/17 03:15 Results - Labs CBC & Chem 7: 02/12/17 00:50 02/12/17 00:50 Labs: Abnormal lab results 02/12/17 02/12/17 02/12/17 Range/Units 00:50 00:50 03:56 RBC 3.20 L (3.65-5.03) M/mm3 Hgb 8.3 L (11.8-15.2) gm/dl Hct 24.7 L (35.5-45.6) % MCV 77 L (84-94) fl MCH 26 L (28-32) pg RDW 15.4 H (13.2-15.2) % Lymph % (Auto) 8.8 L (13.4-35.0) % Lymph # 0.6 L (1.2-5.4) K/mm3 Seg Neutrophils % 82.4 H (40.0-70.0) % Sodium 133 L (137-145) mmol/L Potassium 3.3 L (3.6-5.0) mmol/L Chloride 96.3 L (98-107) mmol/L Carbon Dioxide 21 L (22-30) mmol/L Creatinine 0.7 L (0.8-1.5) mg/dL Glucose 152 H (75-100) mg/dL Lactic Acid 0.60 L (0.7-2.0) mmol/L Assessment and Plan Assessment MRSA infection Diabetes CAD hypokalemia Plan Admit to medicaine Start vancomycin, follow cultures Potassium was repleted Check fingersticks and start insulin sliding scale DVT prophalaxis
--- NOTE | 2017-02-12 04:37 | History and Physical Report ---
Medications and Allergies Allergies Allergy/AdvReac Type Severity Reaction Status Date / Time codeine Allergy Hives Verified 08/14/16 07:20 ondansetron HCl [From Zofran] Allergy Hives Verified 08/14/16 07:20 hydrocodone bitartrate AdvReac Headache Verified 08/14/16 07:20 [From Lortab] Home Medications Medication Instructions Recorded Confirmed Last Taken Type Insulin NPH/Regular [NovoLIN 70/30] 15 unit SUB-Q BIDDIAB 30 Days 11/09/1602/0101/31/17 Rx units Active Meds: Active Medications Acetaminophen (Tylenol) 650 mg PO Q4H PRN PRN Reason: Pain MILD(1-3)/Fever >100.5/MCKEON Bisacodyl (Dulcolax) 10 mg ID QDAY PRN PRN Reason: Constipation unrelieved by MOM Enoxaparin Sodium (Lovenox) 30 mg SUB-Q QDAY SHARATH Sodium Chloride (Nacl 0.9% 1000 Ml) 1,000 mls @ 150 mls/hr IV DIRECT SHARATH Vancomycin HCl (Vancomycin/Ns 1 Gm/250 Ml) 1 gm in 250 mls @ 167.007 mls/hr IV Q12H SHARATH PRN Reason: Protocol Magnesium Hydroxide (Milk Of Magnesia) 30 ml PO Q4H PRN PRN Reason: Constipation Exam - Constitutional Vitals: Temp Pulse Resp BP Pulse Ox 99.0 F 117 H 17 115/79 99 02/12/17 03:15 02/12/17 03:15 02/12/17 03:15 02/12/17 03:15 02/12/17 03:15 Results - Labs CBC & Chem 7: 02/12/17 00:50 02/12/17 00:50 Labs: Abnormal lab results 02/12/17 02/12/17 02/12/17 Range/Units 00:50 00:50 03:56 RBC 3.20 L (3.65-5.03) M/mm3 Hgb 8.3 L (11.8-15.2) gm/dl Hct 24.7 L (35.5-45.6) % MCV 77 L (84-94) fl MCH 26 L (28-32) pg RDW 15.4 H (13.2-15.2) % Lymph % (Auto) 8.8 L (13.4-35.0) % Lymph # 0.6 L (1.2-5.4) K/mm3 Seg Neutrophils % 82.4 H (40.0-70.0) % Sodium 133 L (137-145) mmol/L Potassium 3.3 L (3.6-5.0) mmol/L Chloride 96.3 L (98-107) mmol/L Carbon Dioxide 21 L (22-30) mmol/L Creatinine 0.7 L (0.8-1.5) mg/dL Glucose 152 H (75-100) mg/dL Lactic Acid 0.60 L (0.7-2.0) mmol/L
[2017-02-12] MEDS ORDERED: D50W (25GM) Syringe IV PRN (04:59)
[2017-02-12] MEDS ORDERED: VANCOMYCIN/NS 1 GM/250 ML 1 GM/250 ML BAG IV SCH (05:00)
[2017-02-12] MEDS ORDERED: VANCOMYCIN/NS 1 GM/250 ML 1 GM/250 ML BAG IV ONE (05:00)
[2017-02-12] MEDS: NOVOLOG SUB-Q SCH ×3 (08:00→18:17)
[2017-02-12] MEDS ORDERED: LOVENOX SUB-Q SCH (10:00)
--- NOTE | 2017-02-12 10:08 | Consultation ---
History of Present Illness - Reason for Consult Consult date: 02/12/17 cutaneous abscesses Requesting physician: ROMEL BOWLING - History of Present Illness 31 years old male with history of diabetes type 1, poorly controlled, well known to me in view of recent admission 10/03-10/08/16 and then Oct 2016 due sepsis, DKA and MSSA multiple cutaneous abscesses to bilateral shoulder areas and scalp. Unfortunately, patient was re-admited on 02/12/17 due to right forehead localized edema/tenderness after he hit his forehead several days ago. He also noted another boil in his mid scalp and right scapular area. Denies any recent fever, chills, N/V/D. During previous admission, he has required OR I+D of cutaneous abscesses. Cultures grew MSSA. He received cefazolin IV while inpatient and discharged home on PO keflex for 14 days. He has no insurance and unable to follow-up in the ID office. In the ED, temp 98.2, HR 117, WBC 7.1K, CR 0.7, glu 280, Lactic acid 0.6. Microbiology: Blood cultures: 02/12 ngtd Current Antimicrobials: Vancomycin Previous Antimicrobials: Past History Past Medical History: diabetes, other (multiple cutaneous abscesses due to MSSA) Medications and Allergies Allergies Allergy/AdvReac Type Severity Reaction Status Date / Time codeine Allergy Hives Verified 08/14/16 07:20 ondansetron HCl [From Zofran] Allergy Hives Verified 08/14/16 07:20 hydrocodone bitartrate AdvReac Headache Verified 08/14/16 07:20 [From Lortab] Home Medications Medication Instructions Recorded Confirmed Last Taken Type Insulin NPH/Regular [NovoLIN 70/30] 15 unit SUB-Q BIDDIAB 30 Days 11/09/1602/0101/31/17 Rx units Active Meds: Active Medications Acetaminophen (Tylenol) 650 mg PO Q4H PRN PRN Reason: Pain MILD(1-3)/Fever >100.5/MCKEON Bisacodyl (Dulcolax) 10 mg LA QDAY PRN PRN Reason: Constipation unrelieved by MOM Dextrose (D50w (25gm) Syringe) 50 ml IV PRN PRN PRN Reason: Hypoglycemia Enoxaparin Sodium (Lovenox) 40 mg SUB-Q QDAY@1000 SHARATH Sodium Chloride (Nacl 0.9% 1000 Ml) 1,000 mls @ 150 mls/hr IV DIRECT SHARATH Vancomycin HCl 750 mg/ Sodium (Chloride) 257.5 mls @ 166.667 mls/hr IV Q12H [facility] Insulin Aspart (Novolog) 0 units SUB-Q ACHS SHARATH PRN Reason: Protocol Insulin Human Isoph/Insulin Regular (Novolin 70/30) 15 unit SUB-Q BIDDIAB SHARATH Last Admin: 02/12/17 09:51 Dose: 15 unit Magnesium Hydroxide (Milk Of Magnesia) 30 ml PO Q4H PRN PRN Reason: Constipation Morphine Sulfate (Morphine) 2 mg IV Q4H PRN PRN Reason: Pain, Moderate (4-6) Review of Systems All systems: negative (as per HPI) Physical Examination - Physical Exam Narrative exam: General appearance: Alert in NAD, conversant Eyes: anicteric sclerae, moist conjunctivae; no lid-lag; PERRLA HENT: Atraumatic; oropharynx clear + right forehead boil formation and mid scalp boil Neck: Trachea midline; supple, no thyromegaly or lymphadenopathy Lungs: CTA, with normal respiratory effort and no intercostal retractions CV: RRR, no murmurs Abdomen: Soft, non-tender; no masses or hepatosplenomegaly Extremities: No peripheral edema or extremity lymphadenopathy Skin: +boil right scapular area, + multiple surgical scars from previous boils Psych: Appropriate affect, alert and oriented to person, place and time. Neuro: alert and oriented x 3. Moving all extermities Lines: No CVL / PICC - Constitutional Vitals: Vital Signs Temp Pulse Resp BP Pulse Ox 99.0 F 112 H 18 100/63 98 02/12/17 07:41 02/12/17 07:41 02/12/17 07:41 02/12/17 07:41 02/12/17 07:41 Temperature -Last 24 Hours Temperature 99.0 F Temperature 99.6 F Temperature 99.0 F Temperature 98.2 F Results - Labs CBC & Chem 7: 02/12/17 00:50 02/12/17 00:50 Labs: Abnormal lab results 02/12/17 02/12/17 02/12/17 Range/Units 00:50 00:50 03:29 RBC 3.20 L (3.65-5.03) M/mm3 Hgb 8.3 L (11.8-15.2) gm/dl Hct 24.7 L (35.5-45.6) % MCV 77 L (84-94) fl MCH 26 L (28-32) pg RDW 15.4 H (13.2-15.2) % Lymph % (Auto) 8.8 L (13.4-35.0) % Lymph # 0.6 L (1.2-5.4) K/mm3 Seg Neutrophils % 82.4 H (40.0-70.0) % Sodium 133 L (137-145) mmol/L Potassium 3.3 L (3.6-5.0) mmol/L Chloride 96.3 L (98-107) mmol/L Carbon Dioxide 21 L (22-30) mmol/L Creatinine 0.7 L (0.8-1.5) mg/dL Glucose 152 H (75-100) mg/dL POC Glucose 280 H (70-105) Lactic Acid (0.7-2.0) mmol/L 02/12/17 Range/Units 03:56 RBC (3.65-5.03) M/mm3 Hgb (11.8-15.2) gm/dl Hct (35.5-45.6) % MCV (84-94) fl MCH (28-32) pg RDW (13.2-15.2) % Lymph % (Auto) (13.4-35.0) % Lymph # (1.2-5.4) K/mm3 Seg Neutrophils % (40.0-70.0) % Sodium (137-145) mmol/L Potassium (3.6-5.0) mmol/L Chloride (98-107) mmol/L Carbon Dioxide (22-30) mmol/L Creatinine (0.8-1.5) mg/dL Glucose (75-100) mg/dL POC Glucose (70-105) Lactic Acid 0.60 L (0.7-2.0) mmol/L Assessment and Plan Assessment: 1) 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 Rowena Garnica MD Infectious Diseases Specialist [facility] ([facility]) M [phone] O [phone]
[2017-02-12] MEDS: MORPHINE IV PRN (10:23)
--- NOTE | 2017-02-12 11:18 | Event Note ---
Date: 02/12/17 Patient with multiple skin abscess, cellulitis,recurrent MRSA infection. On Vanco. Consult ID Physician
[2017-02-12] MEDS ORDERED: ceFAZolin 2 GM in NACL 0.9% 100 ML IV SCH (14:00)
[2017-02-12] MEDS: ANCEF/STERILE WATER 2 GM/20 ML 2 GM/20 ML SYRINGE IV SCH (14:15)
[2017-02-12] MEDS: NACL 0.9% 1000 ML 1,000 ML IV SCH (14:16)
[2017-02-12] MEDS: LOVENOX SUB-Q SCH (14:16)
[2017-02-12] MEDS ORDERED: VANCOMYCIN 750 MG in NACL 0.9% 250ML 250 ML IV SCH (17:00)
[2017-02-12] MEDS: VANCOMYCIN 750 MG in NACL 0.9% 250ML 250 ML IV SCH (18:14)
[2017-02-13] MEDS: ANCEF/STERILE WATER 2 GM/20 ML 2 GM/20 ML SYRINGE IV SCH ×4 (00:20→22:00)
[2017-02-13] MEDS: NOVOLOG SUB-Q SCH ×5 (00:20→23:27)
[2017-02-13] MEDS: MORPHINE IV PRN ×2 (00:50→05:59)
[2017-02-13] MEDS: NACL 0.9% 1000 ML 1,000 ML IV SCH ×2 (04:00→11:24)
[2017-02-13] MEDS: VANCOMYCIN 750 MG in NACL 0.9% 250ML 250 ML IV SCH ×2 (05:58→19:22)
[2017-02-13 06:10] LABS: Basophils % (Auto) 0.5 % (0.0-1.8); Eosinophils % (Auto) 1.7 % (0.0-4.3); Hematocrit 21.3 % (35.5-45.6); Hemoglobin 6.9 gm/dl (11.8-15.2); Mean Corpuscular HGB Conc 33 % (32-34); Mean Corpuscular Volume 77 fl (84-94); Platelet Count 197 K/mm3 (140-440); Red Blood Count 2.75 M/mm3 (3.65-5.03); Red Cell Distribution Width 15.6 % (13.2-15.2); White Blood Count 6.2 K/mm3 (4.5-11.0)
[2017-02-13 06:11] LABS: Mean Corpuscular Hemoglobin 25 pg (28-32)
[2017-02-13 06:29] LABS: Anion Gap 17 mmol/L; BUN/Creatinine Ratio 14; Blood Urea Nitrogen 7 mg/dL (9-20); Calcium 7.7 mg/dL (8.4-10.2); Carbon Dioxide 21 mmol/L (22-30); Chloride 100.4 mmol/L (98-107); Glucose 146 mg/dL (75-100); Potassium 3.8 mmol/L (3.6-5.0); Sodium 135 mmol/L (137-145)
--- NOTE | 2017-02-13 09:09 | Progress Note ---
Assessment and Plan Assessment and plan: Multiple cutaneous abscesses now forehead, back likely MRSA. He has had recurrent MRSA infections. On Vancomycin iv. and Cefazolin. ID Physician following, and I discussed with her. Diabetes mellitus type 2. Continue fingerstick Qac and hs. On Novolin 70/30 bid Anemia. Hgb 6.3 today. Will transfuse 2 Units PRBC. Check stool occult blood. DVT prophylxis SCDs only. Lovenox on hold until GI blood loss ruled out. Full code status History Interval history: Feels sicker today, Multiple skin abscesses forehead,back Hospitalist Physical - Physical exam Narrative exam: GEN APPEARANCE : Not in acute distress, malnourished HEENT: Atraumatic,abscess on forehad on right NECK : supple, no JVD LUNGS: Clear to auscultation bilaterally, no rales, no wheeze HEART: S1 and S2 regular, no murmurs, rubs or gallop, ABD: Soft, non tender, non distended, normal bowel sounds EXT: No edema, no clubbing, no cyanosis NEURO: AAO x 3, moves all ext. No focal signs Skin:multiple skin abscesses-forehead, back psych:Normal mood - Constitutional Vitals: Temp Pulse Resp BP Pulse Ox 98.7 F 105 H 14 94/55 96 02/13/17 07:52 02/13/17 07:52 02/13/17 07:52 02/13/17 07:52 02/13/17 07:52 Results - Labs CBC & Chem 7: 02/13/17 10:25 02/13/17 05:11 Labs: Laboratory Last Values WBC 6.2 K/mm3 (4.5-11.0) 02/13/17 05:11 RBC 2.75 M/mm3 (3.65-5.03) L 02/13/17 05:11 Hgb 6.9 gm/dl (11.8-15.2) L 02/13/17 05:11 Hct 21.3 % (35.5-45.6) L 02/13/17 05:11 MCV 77 fl (84-94) L 02/13/17 05:11 MCH 25 pg (28-32) L 02/13/17 05:11 MCHC 33 % (32-34) 02/13/17 05:11 RDW 15.6 % (13.2-15.2) H 02/13/17 05:11 Plt Count 197 K/mm3 (140-440) 02/13/17 05:11 Lymph % (Auto) 14.8 % (13.4-35.0) 02/13/17 05:11 [place] % (Auto) 10.5 % (0.0-7.3) H 02/13/17 05:11 Eos % (Auto) 1.7 % (0.0-4.3) 02/13/17 05:11 Baso % (Auto) 0.5 % (0.0-1.8) 02/13/17 05:11 Lymph # 0.9 K/mm3 (1.2-5.4) L 02/13/17 05:11 [place] # 0.6 K/mm3 (0.0-0.8) 02/13/17 05:11 Eos # 0.1 K/mm3 (0.0-0.4) 02/13/17 05:11 Baso # 0.0 K/mm3 (0.0-0.1) 02/13/17 05:11 Seg Neutrophils % 72.5 % (40.0-70.0) H 02/13/17 05:11 Seg Neutrophils # 4.5 K/mm3 (1.8-7.7) 02/13/17 05:11 Sodium 135 mmol/L (137-145) L 02/13/17 05:11 Potassium 3.8 mmol/L (3.6-5.0) 02/13/17 05:11 Chloride 100.4 mmol/L (98-107) 02/13/17 05:11 Carbon Dioxide 21 mmol/L (22-30) L 02/13/17 05:11 Anion Gap 17 mmol/L 02/13/17 05:11 BUN 7 mg/dL (9-20) L 02/13/17 05:11 Creatinine 0.5 mg/dL (0.8-1.5) L 02/13/17 05:11 Estimated GFR > 60 ml/min 02/13/17 05:11 BUN/Creatinine Ratio 14 % 02/13/17 05:11 Glucose 146 mg/dL (75-100) H 02/13/17 05:11 POC Glucose 234 (70-105) H 02/13/17 06:40 Lactic Acid 0.60 mmol/L (0.7-2.0) L 02/12/17 03:56 Calcium 7.7 mg/dL (8.4-10.2) L 02/13/17 05:11
[2017-02-13] MEDS: LOVENOX SUB-Q SCH (09:35)
--- NOTE | 2017-02-13 10:28 | Progress Note ---
Assessment and Plan Assessment: 1) Recurrent multiple cutaneous abscesses: in the past due to MSSA 2) DM - poorly controlled 3) Anemia - worsening / symptomatic 4) Non insurance status / non compliance Plan: -follow-up blood cultures -obtain C-reactive protein (CRP) -Surgical consult for I+D -continue vanco and cefazolin -if MSSA grows will stop contact isolation -upon discharge will need abx chronic suppression for several months (keflex 500 mg PO q6h for 14 days then keflex 500 mg PO q12h for 3-6 months) and ID clinic f/u -unfortunately, he has failed taking his oral antibiotics at home and has been readmitted multiple times. I will be off tomorrow, but available over the phone. Thank you Dr Cutler for your consultation, will follow up with you. Rowena Garnica MD Infectious Diseases Specialist [facility] ([facility]) M [phone] O [phone] Subjective Date of service: 02/13/17 Principal diagnosis: cutaneous abscesses Interval history: Feels very weak today, still forehead pain, no fever. Microbiology: Blood cultures: 02/12 ngtd Current Antimicrobials: Vancomycin Previous Antimicrobials: Objective - Exam Narrative Exam: General appearance: Alert in NAD, conversant + pale Eyes: anicteric sclerae, moist conjunctivae; no lid-lag; PERRLA HENT: Atraumatic; oropharynx clear + right forehead boil formation and mid scalp boil Neck: Trachea midline; supple, no thyromegaly or lymphadenopathy Lungs: CTA CV: RRR Abdomen: Soft, non-tender; no masses or hepatosplenomegaly Extremities: No peripheral edema or extremity lymphadenopathy Skin: +boil right scapular area, + multiple surgical scars from previous boils Psych: Appropriate affect, alert and oriented to person, place and time. Neuro: alert and oriented x 3. Moving all extermities Lines: No CVL / PICC - Constitutional Vitals: Vital Signs Temp Pulse Resp BP Pulse Ox 98.7 F 105 H 14 94/55 96 02/13/17 07:52 02/13/17 07:52 02/13/17 07:52 02/13/17 07:52 02/13/17 07:52 Temperature -Last 24 Hours Temperature 98.7 F Temperature 99.3 F Temperature 98.8 F Temperature 98.5 F - Labs CBC & Chem 7: 02/13/17 05:11 02/13/17 05:11 Labs: Abnormal lab results 02/12/17 02/12/17 02/12/17 Range/Units 12:10 16:49 23:52 RBC (3.65-5.03) M/mm3 Hgb (11.8-15.2) gm/dl Hct (35.5-45.6) % MCV (84-94) fl MCH (28-32) pg RDW (13.2-15.2) % [place] % (Auto) (0.0-7.3) % Lymph # (1.2-5.4) K/mm3 Seg Neutrophils % (40.0-70.0) % Sodium (137-145) mmol/L Carbon Dioxide (22-30) mmol/L BUN (9-20) mg/dL Creatinine (0.8-1.5) mg/dL Glucose (75-100) mg/dL POC Glucose 318 H 231 H 267 H (70-105) Calcium (8.4-10.2) mg/dL 02/13/17 02/13/17 02/13/17 Range/Units 05:11 05:11 06:40 RBC 2.75 L (3.65-5.03) M/mm3 Hgb 6.9 L (11.8-15.2) gm/dl Hct 21.3 L (35.5-45.6) % MCV 77 L (84-94) fl MCH 25 L (28-32) pg RDW 15.6 H (13.2-15.2) % [place] % (Auto) 10.5 H (0.0-7.3) % Lymph # 0.9 L (1.2-5.4) K/mm3 Seg Neutrophils % 72.5 H (40.0-70.0) % Sodium 135 L (137-145) mmol/L Carbon Dioxide 21 L (22-30) mmol/L BUN 7 L (9-20) mg/dL Creatinine 0.5 L (0.8-1.5) mg/dL Glucose 146 H (75-100) mg/dL POC Glucose 234 H (70-105) Calcium 7.7 L (8.4-10.2) mg/dL
[2017-02-13 10:47] LABS: Hemoglobin 6.3 gm/dl (11.8-15.2)
[2017-02-13] MEDS ORDERED: NACL 0.9% 500 ML 500 ML IV ONE (11:00)
[2017-02-14] MEDS ORDERED: NACL 0.9% 1000 ML 1,000 ML IV SCH (04:00)
[2017-02-14] MEDS: MORPHINE IV PRN ×2 (04:07→20:59)
[2017-02-14] MEDS: ANCEF/STERILE WATER 2 GM/20 ML 2 GM/20 ML SYRINGE IV SCH ×3 (06:00→23:45)
[2017-02-14] MEDS: VANCOMYCIN 750 MG in NACL 0.9% 250ML 250 ML IV SCH (06:00)
[2017-02-14 07:33] LABS: Hematocrit 29.3 % (35.5-45.6); Hemoglobin 9.6 gm/dl (11.8-15.2); Mean Corpuscular HGB Conc 33 % (32-34); Mean Corpuscular Hemoglobin 27 pg (28-32); Mean Corpuscular Volume 81 fl (84-94); Platelet Count 180 K/mm3 (140-440); Red Blood Count 3.62 M/mm3 (3.65-5.03); Red Cell Distribution Width 16.5 % (13.2-15.2); White Blood Count 3.9 K/mm3 (4.5-11.0)
[2017-02-14 07:51] LABS: Anion Gap 17 mmol/L; BUN/Creatinine Ratio 15; Blood Urea Nitrogen 6 mg/dL (9-20); Carbon Dioxide 21 mmol/L (22-30); Chloride 100.4 mmol/L (98-107); Glucose 265 mg/dL (75-100); Potassium 3.6 mmol/L (3.6-5.0); Sodium 135 mmol/L (137-145)
[2017-02-14] MEDS: NOVOLOG SUB-Q SCH ×4 (08:33→22:26)
[2017-02-14] MEDS: VANCOMYCIN/NS 1 GM/250 ML 1 GM/250 ML BAG IV SCH ×2 (09:43→22:27)
--- NOTE | 2017-02-14 11:46 | Progress Note ---
Assessment and Plan Multiple cutaneous abscesses now forehead, back likely MRSA. He has had recurrent MRSA infections. On Vancomycin iv. and Cefazolin. ID Physician following, Diabetes mellitus type 1.H/O non compliance. Continue fingerstick Qac and hs. On Novolin 70/30 bid Anemia. s/p transfused with 2 Units PRBC. today's H/H reviewed DVT prophylxis SCDs only. Lovenox on hold until GI blood loss ruled out. Full code status Subjective Date of service: 02/14/17 Principal diagnosis: cutaneous abscesses Interval history: Patient is resting Alert No apparent distress Offers no specific complaints Chart and ID note reviewed Objective - Constitutional Vitals: Vital Signs - 12hr 02/14/17 02/14/17 02/14/17 00:14 00:15 00:30 Temperature 98.3 F 98.0 F Pulse Rate 101 H 100 H Respiratory 18 18 18 Rate Blood Pressure 140/102 135/90 O2 Sat by Pulse Oximetry 02/14/17 02/14/17 02/14/17 01:17 01:47 02:17 Temperature 98.2 F 98.7 F 98.0 F Pulse Rate 108 H 93 H 92 H Respiratory 18 18 18 Rate Blood Pressure 127/89 143/102 143/105 O2 Sat by Pulse Oximetry 02/14/17 02/14/17 04:07 08:05 Temperature 98.2 F Pulse Rate 97 H Respiratory 18 20 Rate Blood Pressure 116/80 O2 Sat by Pulse 86 Oximetry General appearance: Present: no acute distress - EENT Eyes: PERRL, EOM intact ENT: hearing intact, clear oral mucosa - Neck Neck: supple, normal ROM, no masses or JVD - Respiratory Respiratory effort: normal Respiratory: bilateral: CTA - Cardiovascular Rhythm: regular Heart Sounds: Present: S1 & S2 Extremities: no ischemia - Gastrointestinal General gastrointestinal: Present: soft, non-tender Rectal Exam: deferred - Integumentary Integumentary: rash (swelling and erythema on the right side of the forehead and on the scalp) - Musculoskeletal Musculoskeletal: strength equal bilaterally - Neurologic Neurologic: CNII-XII intact, no focal deficits - Psychiatric Psychiatric: appropriate mood/affect - Labs CBC & Chem 7: 02/14/17 06:22 02/14/17 06:22 Labs: Abnormal lab results 02/13/17 02/13/17 02/13/17 Range/Units 11:41 13:09 16:15 WBC (4.5-11.0) K/mm3 RBC (3.65-5.03) M/mm3 Hgb (11.8-15.2) gm/dl Hct (35.5-45.6) % MCV (84-94) fl MCH (28-32) pg RDW (13.2-15.2) % Sodium (137-145) mmol/L Carbon Dioxide (22-30) mmol/L BUN (9-20) mg/dL Creatinine (0.8-1.5) mg/dL Glucose (75-100) mg/dL POC Glucose 141 H 210 H (70-105) Calcium (8.4-10.2) mg/dL Crossmatch See Detail 02/14/17 02/14/17 02/14/17 Range/Units 05:23 06:22 06:22 WBC 3.9 L (4.5-11.0) K/mm3 RBC 3.62 L (3.65-5.03) M/mm3 Hgb 9.6 L D (11.8-15.2) gm/dl Hct 29.3 L D (35.5-45.6) % MCV 81 L (84-94) fl MCH 27 L (28-32) pg RDW 16.5 H (13.2-15.2) % Sodium 135 L (137-145) mmol/L Carbon Dioxide 21 L (22-30) mmol/L BUN 6 L (9-20) mg/dL Creatinine 0.4 L (0.8-1.5) mg/dL Glucose 265 H (75-100) mg/dL POC Glucose 188 H (70-105) Calcium 8.0 L (8.4-10.2) mg/dL Crossmatch 02/14/17 Range/Units 11:15 WBC (4.5-11.0) K/mm3 RBC (3.65-5.03) M/mm3 Hgb (11.8-15.2) gm/dl Hct (35.5-45.6) % MCV (84-94) fl MCH (28-32) pg RDW (13.2-15.2) % Sodium (137-145) mmol/L Carbon Dioxide (22-30) mmol/L BUN (9-20) mg/dL Creatinine (0.8-1.5) mg/dL Glucose (75-100) mg/dL POC Glucose 170 H (70-105) Calcium (8.4-10.2) mg/dL Crossmatch
[2017-02-15 06:30] LABS: Anion Gap 17 mmol/L; BUN/Creatinine Ratio 10; Blood Urea Nitrogen 5 mg/dL (9-20); Carbon Dioxide 22 mmol/L (22-30); Chloride 99.4 mmol/L (98-107); Glucose 236 mg/dL (75-100); Potassium 3.9 mmol/L (3.6-5.0); Sodium 134 mmol/L (137-145)
[2017-02-15] MEDS: MORPHINE IV PRN (06:31)
[2017-02-15] MEDS: ANCEF/STERILE WATER 2 GM/20 ML 2 GM/20 ML SYRINGE IV SCH (06:32)
[2017-02-15] MEDS: NOVOLOG SUB-Q SCH ×2 (08:39→11:53)
[2017-02-15] MEDS: VANCOMYCIN/NS 1 GM/250 ML 1 GM/250 ML BAG IV SCH (10:26)
--- NOTE | 2017-02-15 10:44 | Discharge Summary ---
Providers - Providers Date of Admission: 02/12/17 04:24 Date of discharge: 02/15/17 Attending physician: ROMEL BOWLING 02/12/17 08:48 Consult to Physician [CONS] Routine Consulting Provider: JOSUE MICHELLE Reason For Exam: Cellulitis foreahead Place consult to:: Dr. Oh Notified:: Dr. Oh Was contact made?: Yes If yes, spoke with:: Dr. Oh Time called:: 09:02 Comment:: on unit and will see pt. 02/12/17 14:48 Consult to Wound/ET Nurse [CONS] Routine Reason For Exam: wound eval Primary care physician: ROMEL MEDRANO Hospitalization Condition: Stable Hospital course: 31-year-old white male with history of diabetes insulin-dependent, and recurrent cutaneous abscesses was admitted for abscess on his forehead and a nontender swelling in the scalp. Blood cultures were negative. He was evaluated by infectious disease specialist and started on Ancef At this time patient is afebrile He offers no specific complaints and he wants to go home I had a long discussion with the patient about his noncompliance I have informed him that he needs to take chronic suppressive therapy with antibiotics for at least 3-6 months and follow-up in the ID clinic The redness and swelling and tenderness on the right forehead is significantly improved but still not resolved He is medically stable for discharge Assessment: Multiple cutaneous abscesses now forehead, . He has had recurrent MRSA infections in the past. On Vancomycin iv. and Cefazolin. Cultures have been negative We discharged the patient on Keflex 500 every 6 hours for 2 weeks and then 500 every 12 hours for 3 months Diabetes mellitus type 1.H/O non compliance. On Novolin 70/30 bid Patient says that he has insulin and does not need any refills Anemia. s/p transfused with 2 Units PRBC. today's H/H reviewed Disposition: DC- TO HOME OR SELFCARE Time spent for discharge: 35 min Core Measure Documentation - Palliative Care Palliative Care/ Comfort Measures: Not Applicable - Core Measures Any of the following diagnoses?: none Exam - Constitutional Vitals: Temp Pulse Resp BP Pulse Ox 98.5 F 105 H 19 104/72 85 02/15/17 07:43 02/15/17 07:43 02/15/17 07:43 02/15/17 07:43 02/15/17 07:43 General appearance: Present: no acute distress - EENT Eyes: Present: PERRL, EOM intact ENT: hearing intact, clear oral mucosa, no thrush - Neck Neck: Present: supple, normal ROM - Respiratory Respiratory effort: normal Respiratory: bilateral: CTA - Cardiovascular Rhythm: regular Heart Sounds: Present: S1 & S2 - Extremities Extremities: No edema - Abdominal General gastrointestinal: Present: soft, non-tender. Absent: hepatomegaly, splenomegaly - Rectal Rectal Exam: deferred - Integumentary Integumentary: Present: erythema (resolving swelling and erythema on the right side of the forehead) - Musculoskeletal Musculoskeletal: strength equal bilaterally - Psychiatric Psychiatric: appropriate mood/affect - Neurologic Neurologic: no focal deficits Plan Activity: no restrictions Weight Bearing Status: Full Weight Bearing Diet: regular, low fat, low cholesterol, diabetic Wound: keep clean and dry Additional Instructions: F/U with ID clinic in 1 week Follow up with: ROMEL MEDRANO MD [Primary Care Provider] - 3-5 Days JOSUE MICHELLE MD [Staff Physician] - 7 Days Prescriptions: Cephalexin [Keflex] 500 mg PO Q6HR #60 capsule Cephalexin [Keflex] 500 mg PO BID #60 capsule
[2017-02-15 17:06] VITALS: BP 120/76
== END 2017-02-15 16:50 | disposition home or self-care (01) | DRG 603 ==
LOC: ED 22:33 → 3A 02-12 04:24
PROVIDERS: ADMIT Internal Medicine; ATTEND Internal Medicine
PROC: 30233N1 Transfusion of Nonautologous Red Blood Cells into Peripheral Vein, Percutaneous Approach (ICD-10-PCS; principal; 2017-02-13)
DX: L02.811 Cutaneous abscess of head [any part, except face] (principal); A49.01 Methicillin susceptible Staphylococcus aureus infection, unspecified site; E87.6 Hypokalemia; D64.9 Anemia, unspecified; L03.818 Cellulitis of other sites; E10.65 Type 1 diabetes mellitus with hyperglycemia; I25.10 Atherosclerotic heart disease of native coronary artery without angina pectoris; L02.212 Cutaneous abscess of back [any part, except buttock and flank]; Z88.5 Allergy status to narcotic agent; Z88.8 Allergy status to other drugs, medicaments and biological substances; Z79.4 Long term (current) use of insulin; Z82.49 Family history of ischemic heart disease and other diseases of the circulatory system; Z83.3 Family history of diabetes mellitus
CPT/HCPCS: 36415; 80048; 80202; 82140; 82962; 85014; 85018; 85025; 85027; 86850; 86900; 86901; 86920; 87040; 96365; 96372; 99285; J0690; J1650; J1815; J2270; J3370; J7030; J7040; J7050; P9016

== ENCOUNTER 2017-02-21 15:18 | Inpatient (IN) | payer SELFPAY ==
[2017-02-21 15:56] LABS: Basophils # (Auto) 0.1 K/mm3 (0.0-0.1); Basophils % (Auto) 0.7 % (0.0-1.8); Lymphocytes # (Auto) 1.1 K/mm3 (1.2-5.4); Lymphocytes % (Auto) 8.9 % (13.4-35.0); Mean Corpuscular HGB Conc 28 % (32-34); Mean Corpuscular Volume 93 fl (84-94); Monocytes # (Auto) 0.5 K/mm3 (0.0-0.8); Monocytes % (Auto) 3.7 % (0.0-7.3); Platelet Count 295 K/mm3 (140-440); Red Blood Count 3.18 M/mm3 (3.65-5.03); Red Cell Distribution Width 16.1 % (13.2-15.2)
[2017-02-21 15:58] LABS: Hematocrit 29.5 % (35.5-45.6); Hemoglobin 8.2 gm/dl (11.8-15.2); Mean Corpuscular Hemoglobin 26 pg (28-32)
[2017-02-21] MEDS ORDERED: NACL 0.9% 1000 ML 1,000 ML IV ONE ×2 (16:01)
--- NOTE | 2017-02-21 16:13 | Emergency Department Report ---
HPI - General Chief Complaint: Hyperglycemia - HPI HPI: Room 22 The patient is a 31-year-old male presented with a chief complaint of hyperglycemia. The patient states 1 days her chest pain. The patient presents with Kussmaul respirations and hyperglycemia consistent with his previous presentations for DKA. Patient denies any history of fever nausea or vomiting. Patient states he has had a "staph infection" on his right forehead for approximately 3 weeks Location: [See above] Duration: [See above] Quality: [See above] Severity: [See above] Modifying factors: [see above] Context: [see above] Mode of transportation: [not driving] ED Past Medical Hx - Past Medical History Previous Medical History?: Yes Hx Diabetes: Yes Additional medical history: staph infection, CHEST DEFORMITY - Surgical History Additional Surgical History: wound debridement (staph infection)--NECK AND BACK - Family History Family history: no significant - Social History Smoking Status: Never Smoker Substance Use Type: None - Medications Home Medications: Home Medications Medication Instructions Recorded Confirmed Last Taken Type Insulin NPH/Regular [NovoLIN 70/30] 15 unit SUB-Q BIDDIAB 30 Days 11/09/1602/0101/31/17 Rx units Cephalexin [Keflex] 500 mg PO BID #60 capsule 02/15/17 Unknown Rx Cephalexin [Keflex] 500 mg PO Q6HR #60 capsule 02/15/17 Unknown Rx ED Review of Systems ROS: Stated complaint: HIGH BLOOD SUGAR Other details as noted in HPI Constitutional: malaise. denies: fever Cardiovascular: chest pain Neurological: headache Physical Exam - Physical Exam Vital Signs: Vital Signs 02/21/17 02/21/17 02/21/17 15:20 15:29 15:36 Pulse Rate 104 H 107 H Respiratory 24 24 24 Rate Blood Pressure 81/62 Blood Pressure 92/62 [Right] O2 Sat by Pulse 100 100 100 Oximetry Physical Exam: GENERAL: The patient is well-developed well-nourished male lying on stretcher with Kussmaul respirations. In moderate discomfort. [] HEENT: Normocephalic. Atraumatic. Extraocular motions are intact. Patient has moist mucous membranes. Swelling to the right forehead along the hairline without evidence of purulent drainage NECK: Supple. Trachea midline CHEST/LUNGS: Clear to auscultation. Kussmaul respirations HEART/CARDIOVASCULAR: Regular. There is no tachycardia. There is no gallop rub or murmur. ABDOMEN: Abdomen is soft, nontender. Patient has normal bowel sounds. There is no abdominal distention. SKIN: There is no diaphoresis. NEURO: The patient is awake, but appears lethargic. The patient is cooperative. The patient has normal speech MUSCULOSKELETAL: There is no evidence of acute injury. ED Course Vital Signs 02/21/17 02/21/17 02/21/17 15:20 15:29 15:36 Pulse Rate 104 H 107 H Respiratory 24 24 24 Rate Blood Pressure 81/62 Blood Pressure 92/62 [Right] O2 Sat by Pulse 100 100 100 Oximetry ED Medical Decision Making - Lab Data Result diagrams: 02/21/17 15:40 02/21/17 15:40 Laboratory Tests 02/21/17 02/21/17 02/21/17 15:39 15:40 15:40 WBC 12.1 H RBC 3.18 L Hgb 8.2 L Hct 29.5 L MCV 93 MCH 26 L MCHC 28 L RDW 16.1 H Plt Count 295 Lymph % (Auto) 8.9 L [place] % (Auto) 3.7 Eos % (Auto) 0.0 Baso % (Auto) 0.7 Lymph # 1.1 L [place] # 0.5 Eos # 0.0 Baso # 0.1 Seg Neutrophils % 86.7 H Seg Neutrophils # 10.5 H VBG pH Sodium 131 L Potassium 5.8 H Chloride 90.8 L Anion Gap 44 BUN 43 H Creatinine 1.3 Estimated GFR > 60 BUN/Creatinine Ratio 33 Glucose 804 H* POC Glucose > 500 H Calcium 8.1 L 02/21/17 15:40 WBC RBC Hgb Hct MCV MCH MCHC RDW Plt Count Lymph % (Auto) [place] % (Auto) Eos % (Auto) Baso % (Auto) Lymph # [place] # Eos # Baso # Seg Neutrophils % Seg Neutrophils # VBG pH 6.932 L* Sodium Potassium Chloride Anion Gap BUN Creatinine Estimated GFR BUN/Creatinine Ratio Glucose POC Glucose Calcium - Radiology Data Radiology results: image reviewed (chest x-ray) interpreted by me: Chest x-ray-no definite focal infiltrates, no pneumothorax - Differential Diagnosis DKA, folliculitis, abscess Critical care attestation.: If time is entered above; I have spent that time in minutes in the direct care of this critically ill patient, excluding procedure time. ED Disposition Clinical Impression: DKA (diabetic ketoacidosis), Scalp abscess Disposition: OP ADMIT IP TO THIS HOSP Is pt being admited?: Yes Does the pt Need Aspirin: No Condition: Serious Instructions: Diabetic Ketoacidosis (ED) Time of Disposition: 16:27 (hospitalist notified (Dr. Hernandez))
[2017-02-21 16:14] LABS: BUN/Creatinine Ratio 33; Blood Urea Nitrogen 43 mg/dL (9-20); Calcium 8.1 mg/dL (8.4-10.2); Hemolysis Index 3
[2017-02-21] MEDS ORDERED: D50W (25GM) Syringe IV PRN ×3 (16:18→19:18)
[2017-02-21] MEDS: SODIUM BICARBONATE IV ONE ×2 (16:21→18:59)
[2017-02-21] MEDS ORDERED: CLEOCIN 900 MG/50 mL 900 MG/50 ML BAG IV ONE ×2 (16:26→19:02)
[2017-02-21] MEDS ORDERED: SUBLIMAZE IV ONE (16:54)
[2017-02-21] MEDS ORDERED: REGLAN IV ONE (16:54)
[2017-02-21] MEDS ORDERED: SUBLIMAZE ONE (16:57)
[2017-02-21] MEDS ORDERED: REGLAN ONE (16:57)
[2017-02-21 17:06] LABS: BUN/Creatinine Ratio 34; Blood Urea Nitrogen 44 mg/dL (9-20); Calcium 8.2 mg/dL (8.4-10.2); Hemolysis Index 3; Magnesium 2.1 mg/dL (1.7-2.3)
[2017-02-21] MEDS: NovoLIN R 100 UNITS in NACL 0.9% 99 ML IV SCH ×2 (17:44→22:35)
--- NOTE | 2017-02-21 18:08 | XRay Report ---
FINAL REPORT PROCEDURE: Chest. TECHNIQUE: Portable AP view. HISTORY: Chest pain. COMPARISON: Chest 01/30/2017. FINDINGS: The heart and mediastinum appear normal. The lungs are clear and well expanded. There are no pleural effusions. The soft tissues and regional skeleton are unremarkable. IMPRESSION: Negative portable chest.
--- NOTE | 2017-02-21 18:54 | History and Physical Report ---
History of Present Illness Date of examination: 02/21/17 Date of admission: 02/21/17 Chief complaint: CC Increasing SOB for 1 day History of present illness: CHICKEN RANCH: The patient is a 31-year-old male presented with a chief complaint of SOB. The patient states 1 days of chest pain. The patient presents with Kussmaul respirations and hyperglycemia consistent with his previous presentations for DKA. Patient denies any history of fever nausea or vomiting. Patient states he has had a "staph infection" on his right forehead for approximately 3 weeks Past Medical History Previous Medical History?: Yes Hx Diabetes: Yes Additional medical history: staph infection, CHEST DEFORMITY Surgical History Additional Surgical History: wound debridement (staph infection)--NECK AND BACK Family History Family history: no significant -Social History Smoking Status: Never Smoker Substance Use Type: None - Medications Home Medications: Home Medications Medication Instructions Recorded Confirmed Last Taken Type Insulin NPH/Regular [NovoLIN 70/30] 15 unit SUB-Q BIDDIAB 30 Days 11/09/1602/0101/31/17 Rx units Cephalexin [Keflex] 500 mg PO BID #60 capsule 02/15/17 Unknown Rx Cephalexin [Keflex] 500 mg PO Q6HR #60 capsule 02/15/17 Unknown Rx Review of Systems Stated complaint: HIGH BLOOD SUGAR Other details as noted in HPI Abscess on face Constitutional: malaise. denies: fever Cardiovascular: chest pain Neurological: headache Medications and Allergies Allergies Allergy/AdvReac Type Severity Reaction Status Date / Time codeine Allergy Hives Verified 08/14/16 07:20 ondansetron HCl [From Zofran] Allergy Hives Verified 08/14/16 07:20 hydrocodone bitartrate AdvReac Headache Verified 08/14/16 07:20 [From Lortab] Home Medications Medication Instructions Recorded Confirmed Last Taken Type Insulin NPH/Regular [NovoLIN 70/30] 15 unit SUB-Q BIDDIAB 30 Days 11/09/1602/0101/31/17 Rx units Cephalexin [Keflex] 500 mg PO BID #60 capsule 02/15/17 Unknown Rx Cephalexin [Keflex] 500 mg PO Q6HR #60 capsule 02/15/17 Unknown Rx Active Meds: Active Medications Dextrose (D50w (25gm) Syringe) 0 ml IV ONCE PRN PRN Reason: Hypoglycemia Insulin Human Regular 100 (units/ Sodium Chloride) 100 mls @ 6 mls/hr IV TITR SHARATH; 6 UNITS/HR PRN Reason: Protocol Last Admin: 02/21/17 17:44 Dose: 8 units/hr, 8 mls/hr Exam - Constitutional Vitals: Temp Pulse Resp BP Pulse Ox 107 H 24 92/62 100 02/21/17 15:29 02/21/17 17:30 02/21/17 15:29 02/21/17 15:36 General appearance: Present: mild distress, severe distress, well-nourished - EENT Eyes: Present: PERRL ENT: hearing intact, clear oral mucosa, other (Abscess Rt Forehead) - Neck Neck: Present: supple, normal ROM - Respiratory Respiratory effort: normal Respiratory: bilateral: CTA (Tachypneic) - Cardiovascular Heart rate: 100 Rhythm: regular Heart Sounds: Present: S1 & S2. Absent: rub, click - Extremities Extremities: no ischemia, pulses intact, pulses symmetrical, No edema Peripheral Pulses: within normal limits - Abdominal General gastrointestinal: Present: soft, non-tender, non-distended, normal bowel sounds Male genitourinary: Present: normal - Integumentary Integumentary: Present: clear, warm, dry - Musculoskeletal Musculoskeletal: gait normal, strength equal bilaterally - Psychiatric Psychiatric: appropriate mood/affect, intact judgment & insight - Neurologic Neurologic: CNII-XII intact, moves all extremities - Allied Health Allied health notes reviewed: nursing, case management Results - Labs CBC & Chem 7: 02/21/17 15:40 02/22/17 06:30 Labs: Laboratory Last Values WBC 12.1 K/mm3 (4.5-11.0) H 02/21/17 15:40 RBC 3.18 M/mm3 (3.65-5.03) L 02/21/17 15:40 Hgb 8.2 gm/dl (11.8-15.2) L 02/21/17 15:40 Hct 29.5 % (35.5-45.6) L 02/21/17 15:40 MCV 93 fl (84-94) 02/21/17 15:40 MCH 26 pg (28-32) L 02/21/17 15:40 MCHC 28 % (32-34) L 02/21/17 15:40 RDW 16.1 % (13.2-15.2) H 02/21/17 15:40 Plt Count 295 K/mm3 (140-440) 02/21/17 15:40 Lymph % (Auto) 8.9 % (13.4-35.0) L 02/21/17 15:40 [place] % (Auto) 3.7 % (0.0-7.3) 02/21/17 15:40 Eos % (Auto) 0.0 % (0.0-4.3) 02/21/17 15:40 Baso % (Auto) 0.7 % (0.0-1.8) 02/21/17 15:40 Lymph # 1.1 K/mm3 (1.2-5.4) L 02/21/17 15:40 [place] # 0.5 K/mm3 (0.0-0.8) 02/21/17 15:40 Eos # 0.0 K/mm3 (0.0-0.4) 02/21/17 15:40 Baso # 0.1 K/mm3 (0.0-0.1) 02/21/17 15:40 Seg Neutrophils % 86.7 % (40.0-70.0) H 02/21/17 15:40 Seg Neutrophils # 10.5 K/mm3 (1.8-7.7) H 02/21/17 15:40 VBG pH 6.932 (7.320-7.420) L* 02/21/17 15:40 Sodium 133 mmol/L (137-145) L 02/21/17 16:23 Potassium 6.0 mmol/L (3.6-5.0) H 02/21/17 16:23 Chloride 90.8 mmol/L (98-107) L 02/21/17 16:23 Carbon Dioxide 3 mmol/L (22-30) L* 02/21/17 16:23 Anion Gap 45 mmol/L 02/21/17 16:23 BUN 44 mg/dL (9-20) H 02/21/17 16:23 Creatinine 1.3 mg/dL (0.8-1.5) 02/21/17 16:23 Estimated GFR > 60 ml/min 02/21/17 16:23 BUN/Creatinine Ratio 34 % 02/21/17 16:23 Glucose 799 mg/dL (75-100) H* 02/21/17 16:23 POC Glucose > 500 (70-105) H 02/21/17 15:39 Lactic Acid 1.60 mmol/L (0.7-2.0) 02/21/17 16:08 Calcium 8.2 mg/dL (8.4-10.2) L 02/21/17 16:23 Phosphorus 5.90 mg/dL (2.5-4.5) H 02/21/17 16:23 Magnesium 2.10 mg/dL (1.7-2.3) 02/21/17 16:23 - Imaging and Cardiology EKG: report reviewed (Sinus tachycardia Non specific ST twave changes) Chest x-ray: report reviewed (NAF) Assessment and Plan Assessment and plan: The high probability of a clinically significant, sudden or life threatening deterioration of the [Pulmonary, cadiac, renal] system(s) required my full and direct attention, intervention and personal management. The aggregate critical care time was [35] minutes. This time is in addition to time spent performing reported procedures but includes the following: [x] Data Review and interpretation [x] Patient assessment and monitoring of vital signs [x] Documentation [x] Medication orders and management Advance Directives: Yes (Full code) VTE prophylaxis?: Chemical Plan of care discussed with patient/family: Yes - Patient Problems (1) DKA (diabetic ketoacidosis) Current Visit: Yes Status: Acute Qualifiers: Diabetes mellitus type: type 1 Diabetes mellitus complication detail: without coma Qualified Code(s): E10.10 - Type 1 diabetes mellitus with ketoacidosis without coma Plan to address problem: Very non compliant DKA protocol initiated. consult requested for possible antidepressant use (2) Acute abscess of face Current Visit: Yes Status: Acute Plan to address problem: Needs I and D IV abx for now Surgery -Dr Vasquez consulted (3) DVT prophylaxis Current Visit: Yes Status: Acute Plan to address problem: on Lovenox (4) ECHO (acute kidney injury) Current Visit: No Status: Acute Plan to address problem: IV fluids for now
[2017-02-21] MEDS ORDERED: DULCOLAX PR PRN (18:55)
[2017-02-21] MEDS ORDERED: MORPHINE IV PRN ×2 (18:55)
[2017-02-21] MEDS ORDERED: TYLENOL PO PRN (18:55)
[2017-02-21] MEDS ORDERED: MILK OF MAGNESIA PO PRN (18:55)
[2017-02-21] MEDS ORDERED: ZOFRAN IV PRN (18:55)
[2017-02-21] MEDS ORDERED: LOVENOX SUB-Q SCH ×2 (19:00→20:00)
[2017-02-21 19:18] LABS: BUN/Creatinine Ratio 35; Blood Urea Nitrogen 42 mg/dL (9-20); Hemolysis Index 3
[2017-02-21 19:42] LABS: Magnesium 2.2 mg/dL (1.7-2.3)
[2017-02-21] MEDS ORDERED: D5W/0.45% NACL/KCL 20 MEQ 20 MEQ/1,000 ML BAG IV SCH (20:00)
[2017-02-21] MEDS ORDERED: NovoLIN R 100 UNITS in NACL 0.9% 99 ML IV SCH (20:00)
[2017-02-21] MEDS ORDERED: KCL 10MEQ/100ML 10 MEQ/100 ML BAG IV PRN ×2 (20:00)
[2017-02-21] MEDS ORDERED: LEVAQUIN 750MG/150ML 750 MG/150 ML BAG IV SCH (20:00)
[2017-02-21] MEDS ORDERED: NACL 0.9% 1000 ML 1,000 ML IV SCH (20:00)
[2017-02-21] MEDS ORDERED: VANCOMYCIN PHARMACY TO DOSE IV SCH (20:00)
[2017-02-21 20:03] LABS: Magnesium 2.2 mg/dL (1.7-2.3)
[2017-02-21 20:04] LABS: BUN/Creatinine Ratio 37; Blood Urea Nitrogen 44 mg/dL (9-20); Calcium 7.7 mg/dL (8.4-10.2); Hemolysis Index 12
[2017-02-21] MEDS ORDERED: VANCOMYCIN 1,250 MG in NACL 0.9% 250ML 250 ML IV ONE (20:30)
[2017-02-21] MEDS ORDERED: SODIUM BICARBONATE IV ONE (20:58)
[2017-02-21 21:34] LABS: BUN/Creatinine Ratio 39; Blood Urea Nitrogen 43 mg/dL (9-20); Calcium 7.1 mg/dL (8.4-10.2); Hemolysis Index 9
[2017-02-21] MEDS ORDERED: PEPCID IV SCH (22:00)
[2017-02-21 23:26] LABS: Bacteria,Urine 1+ /HPF (Negative); Bilirubin,Urine NEG (Negative); Blood,Urine SM (Negative); Color,Urine Straw (Yellow); Mucus,Urine FEW /HPF; Nitrite,Urine NEG (Negative); Protein,Urine <15 mg/dL mg/dL (Negative); Urobilinogen,Urine < 2.0 mg/dL (<2.0)
[2017-02-22 00:04] LABS: BUN/Creatinine Ratio 42; Blood Urea Nitrogen 42 mg/dL (9-20); Calcium 7.2 mg/dL (8.4-10.2); Hemolysis Index 4
[2017-02-22 03:44] LABS: BUN/Creatinine Ratio 42; Blood Urea Nitrogen 38 mg/dL (9-20); Calcium 6.9 mg/dL (8.4-10.2); Hemolysis Index 9
[2017-02-22 06:59] LABS: BUN/Creatinine Ratio 37; Blood Urea Nitrogen 33 mg/dL (9-20); Calcium 6.8 mg/dL (8.4-10.2); Hemolysis Index 1
[2017-02-22] MEDS ORDERED: VANCOMYCIN 750 MG in NACL 0.9% 250ML 250 ML IV SCH (08:30)
--- NOTE | 2017-02-22 09:39 | Progress Note ---
Hospitalist Physical - Constitutional Vitals: Temp Pulse Resp BP Pulse Ox 89.9 F L 80 18 78/45 100 02/21/17 23:39 02/21/17 23:31 02/21/17 23:31 02/21/17 23:31 02/21/17 23:31 General appearance: Present: mild distress, severe distress, well-nourished Results - Labs CBC & Chem 7: 02/21/17 15:40 02/22/17 06:30 Labs: Laboratory Last Values WBC 12.1 K/mm3 (4.5-11.0) H 02/21/17 15:40 RBC 3.18 M/mm3 (3.65-5.03) L 02/21/17 15:40 Hgb 8.2 gm/dl (11.8-15.2) L 02/21/17 15:40 Hct 29.5 % (35.5-45.6) L 02/21/17 15:40 MCV 93 fl (84-94) 02/21/17 15:40 MCH 26 pg (28-32) L 02/21/17 15:40 MCHC 28 % (32-34) L 02/21/17 15:40 RDW 16.1 % (13.2-15.2) H 02/21/17 15:40 Plt Count 295 K/mm3 (140-440) 02/21/17 15:40 Lymph % (Auto) 8.9 % (13.4-35.0) L 02/21/17 15:40 [place] % (Auto) 3.7 % (0.0-7.3) 02/21/17 15:40 Eos % (Auto) 0.0 % (0.0-4.3) 02/21/17 15:40 Baso % (Auto) 0.7 % (0.0-1.8) 02/21/17 15:40 Lymph # 1.1 K/mm3 (1.2-5.4) L 02/21/17 15:40 [place] # 0.5 K/mm3 (0.0-0.8) 02/21/17 15:40 Eos # 0.0 K/mm3 (0.0-0.4) 02/21/17 15:40 Baso # 0.1 K/mm3 (0.0-0.1) 02/21/17 15:40 Seg Neutrophils % 86.7 % (40.0-70.0) H 02/21/17 15:40 Seg Neutrophils # 10.5 K/mm3 (1.8-7.7) H 02/21/17 15:40 VBG pH 6.932 (7.320-7.420) L* 02/21/17 15:40 Sodium 152 mmol/L (137-145) H D 02/22/17 06:30 Potassium 3.0 mmol/L (3.6-5.0) L 02/22/17 06:30 Chloride 118.6 mmol/L (98-107) H 02/22/17 06:30 Carbon Dioxide 17 mmol/L (22-30) L D 02/22/17 06:30 Anion Gap 19 mmol/L 02/22/17 06:30 BUN 33 mg/dL (9-20) H 02/22/17 06:30 Creatinine 0.9 mg/dL (0.8-1.5) 02/22/17 06:30 Estimated GFR > 60 ml/min 02/22/17 06:30 BUN/Creatinine Ratio 37 % 02/22/17 06:30 Glucose 80 mg/dL (75-100) 02/22/17 06:30 POC Glucose 83 (70-105) 02/22/17 07:10 Hemoglobin A1c 10.0 % (4-6) H 02/21/17 15:40 Lactic Acid 1.60 mmol/L (0.7-2.0) 02/21/17 16:08 Calcium 6.8 mg/dL (8.4-10.2) L 02/22/17 06:30 Phosphorus 5.30 mg/dL (2.5-4.5) H 02/21/17 19:28 Magnesium 2.20 mg/dL (1.7-2.3) 02/21/17 19:28 Urine Color Straw (Yellow) 02/21/17 Unknown Urine Turbidity Clear (Clear) 02/21/17 Unknown Urine pH 6.0 (5.0-7.0) 02/21/17 Unknown Ur Specific [place] 1.018 (1.003-1.030) 02/21/17 Unknown Urine Protein <15 mg/dl mg/dL (Negative) 02/21/17 Unknown Urine Glucose (UA) >=500 mg/dL (Negative) 02/21/17 Unknown Urine Ketones 80 mg/dL (Negative) 02/21/17 Unknown Urine Blood Sm (Negative) 02/21/17 Unknown Urine Nitrite Neg (Negative) 02/21/17 Unknown Urine Bilirubin Neg (Negative) 02/21/17 Unknown Urine Urobilinogen < 2.0 mg/dL (<2.0) 02/21/17 Unknown Ur Leukocyte Esterase Neg (Negative) 02/21/17 Unknown Urine WBC (Auto) 1.0 /HPF (0.0-6.0) 02/21/17 Unknown Urine RBC (Auto) 0.0 /HPF (0.0-6.0) 02/21/17 Unknown Urine Bacteria (Auto) 1+ /HPF (Negative) 02/21/17 Unknown Urine Mucus Few /HPF 02/21/17 Unknown
[2017-02-22 09:43] VITALS: BP 94/46
[2017-02-22] MEDS ORDERED: VANCOMYCIN/NS 1 GM/250 ML 1 GM/250 ML BAG IV SCH (11:00)
--- NOTE | 2017-02-22 13:53 | Event Note ---
Date: 02/24/17 Told by Nurse that patient wants to sign out against medical advice.
--- NOTE | 2017-02-22 13:54 | Discharge Summary ---
Providers - Providers Date of Admission: 02/21/17 18:55 Attending physician: ROMEL BOWLING 02/21/17 19:02 Consult to Dietitian/Nutrition [CONS] Routine Physician Instructions: Reason For Exam: DKA Reason for Consult: Nutrition Recommendations Reason for Consult: Diet education 02/21/17 19:10 Consult to Physician [CONS] Routine Consulting Provider: ADIS FELIX Reason For Exam: Abscess rt Forehead Place consult to:: SURG Notified:: Y Was contact made?: Yes If yes, spoke with:: Halle HERNANDEZ Time called:: 08:00 02/21/17 19:18 Consult to Dietitian/Nutrition [CONS] Routine Physician Instructions: Reason For Exam: DKA Reason for Consult: Nutrition Recommendations Reason for Consult: Diet education 02/21/17 20:45 Consult to Physician [CONS] Routine Consulting Provider: ERLINDA SEAMAN Reason For Exam: icu admission Place consult to:: Dr. Seaman Notified:: Answering Service Phone number called:: [phone] Was contact made?: No Comment:: Answering service was called Primary care physician: FIBERGLASS LAMINATOR Hospitalization Condition: Serious Disposition: DC-07 LEFT AGAINST MED ADVICE Exam - Constitutional Vitals: Temp Pulse Resp BP Pulse Ox 89.9 F L 105 H 21 94/46 100 02/21/17 23:39 02/22/17 09:30 02/22/17 09:30 02/22/17 09:30 02/22/17 09:30 Plan Follow up with: PRIMARY CAREMD [Primary Care Provider] - 7 Days Forms: AMA Form
== END 2017-02-22 11:45 | disposition left against medical advice (07) | DRG 638 ==
LOC: ED 15:18 → CC1 18:55
PROVIDERS: ADMIT Internal Medicine; ATTEND Internal Medicine
DX: E11.10 Type 2 diabetes mellitus with ketoacidosis without coma (principal); L02.811 Cutaneous abscess of head [any part, except face]; L02.01 Cutaneous abscess of face; N17.9 Acute kidney failure, unspecified; Z79.4 Long term (current) use of insulin; Z88.5 Allergy status to narcotic agent
CPT/HCPCS: 36415; 71010; 80048; 81001; 82140; 82271; 82805; 82962; 83036; 83735; 84100; 85025; 87076; 87116; 87186; 93005; 93010; 96361; 96365; 96366; 96367; 96372; 96375; J1650; J1815; J1956; J2765; J3010; J3370; J7030; J7050

== ENCOUNTER 2017-03-27 19:25 | Inpatient (IN) | payer OTHER ==
[2017-03-27] MEDS ORDERED: NACL 0.9% 1000 ML 1,000 ML IV ONE ×3 (20:59→23:48)
[2017-03-27] MEDS ORDERED: SUBLIMAZE IV ONE ×2 (20:59→21:38)
[2017-03-27] MEDS ORDERED: REGLAN IV ONE (21:00)
--- NOTE | 2017-03-27 21:06 | Emergency Department Report ---
HPI - General Chief Complaint: Fall Time Seen by Provider: 03/27/17 20:54 - HPI HPI: Room 25 The patient is a 31-year-old male presenting with a chief complaint of left hip pain. The patient states this evening's ones which the bathroom when he slipped and fell landing on his left hip. Patient denies loss of consciousness. Patient comes in with a complaint of pain of the left hip. The patient gets his pain is scored 10/10. Patient states she's been compliant with his diabetes medication and does not feel like he normally feels when he is in DKA. Patient denies nausea/vomiting or abdominal pain. Location: Left hip Duration: Occurred this evening Quality: Pain Severity: 12/01 Modifying factors: Movement of left lower extremity increases pain Context: [see above] Mode of transportation: EMS ED Past Medical Hx - Past Medical History Hx Diabetes: Yes Hx HIV: Yes Additional medical history: staph infection, CHEST DEFORMITY - Surgical History Additional Surgical History: wound debridement (staph infection)--NECK AND BACK - Family History Family history: no significant - Social History Smoking Status: Never Smoker Substance Use Type: None (denies illicit drug use) - Medications Home Medications: Home Medications Medication Instructions Recorded Confirmed Last Taken Type Insulin NPH/Regular [NovoLIN 70/30] 15 unit SUB-Q BIDDIAB 30 Days 11/09/1602/0101/31/17 Rx units Cephalexin [Keflex] 500 mg PO BID #60 capsule 02/15/17 Unknown Rx Cephalexin [Keflex] 500 mg PO Q6HR #60 capsule 02/15/17 Unknown Rx ED Review of Systems ROS: Stated complaint: LEFT HIP PAIN Other details as noted in HPI Gastrointestinal: denies: abdominal pain, nausea, vomiting Musculoskeletal: arthralgia Physical Exam - Physical Exam Vital Signs: Vital Signs 03/27/17 20:53 Temperature 98.4 F Pulse Rate 68 Blood Pressure 78/40 O2 Sat by Pulse 97 Oximetry Physical Exam: GENERAL: The patient is well-developed thin male lying on stretcher not appearing to be in acute distress HEENT: Normocephalic. Atraumatic. Extraocular motions are intact. NECK: Supple. Trachea midline CHEST/LUNGS: There is no respiratory distress noted. HEART/CARDIOVASCULAR: Regular. There is no tachycardia. ABDOMEN: There is no abdominal distention. SKIN: There is no diaphoresis. NEURO: The patient is awake, alert, and oriented. The patient is cooperative. The patient has normal speech MUSCULOSKELETAL: There is tenderness to the left hip with palpation. There is pain in the left hip with any movement of the left lower extremity ED Course Vital Signs 03/27/17 20:53 Temperature 98.4 F Pulse Rate 68 Blood Pressure 78/40 O2 Sat by Pulse 97 Oximetry ED Medical Decision Making - Lab Data Result diagrams: 03/27/17 21:33 03/27/17 21:33 Laboratory Tests 03/27/17 03/27/17 03/27/17 21:26 21:33 21:33 WBC 8.8 RBC 4.15 Hgb 11.5 L Hct 38.2 MCV 92 MCH 28 MCHC 30 L RDW 17.3 H Plt Count 293 Lymph % (Auto) 19.7 [place] % (Auto) 5.2 Eos % (Auto) 0.9 Baso % (Auto) 0.6 Lymph # 1.7 [place] # 0.5 Eos # 0.1 Baso # 0.1 Seg Neutrophils % 73.6 H Seg Neutrophils # 6.5 VBG pH Sodium 123 L Potassium 5.5 H Chloride 74.9 L Carbon Dioxide 5 L* Anion Gap 49 BUN 36 H Creatinine 1.7 H Estimated GFR 48 BUN/Creatinine Ratio 21 Glucose 1045 H* POC Glucose > 500 H Calcium 8.2 L 03/27/17 21:33 WBC RBC Hgb Hct MCV MCH MCHC RDW Plt Count Lymph % (Auto) [place] % (Auto) Eos % (Auto) Baso % (Auto) Lymph # [place] # Eos # Baso # Seg Neutrophils % Seg Neutrophils # VBG pH 7.108 L* Sodium Potassium Chloride Carbon Dioxide Anion Gap BUN Creatinine Estimated GFR BUN/Creatinine Ratio Glucose POC Glucose Calcium - Radiology Data Radiology results: report reviewed (CT left hip), image reviewed (left hip x-ray , CT left hip) interpreted by me: Left hip [id number] irregularity/fracture of the left intertrochanteric region FINAL REPORT PROCEDURE: CT LOWER EXTREMITY LT WO CON TECHNIQUE: Computerized axial tomography of the LEFT hip was performed without contrast. HISTORY: left hip pain after fall COMPARISON: No prior studies are available for comparison. FINDINGS: Bony structures including marrow spaces: There is an impacted comminuted intertrochanteric fracture of the proximal left femur. Neurovascular structures: Normal. Soft tissues: Mild soft tissue swelling and slight joint effusion is noted Joint space: Normal. IMPRESSION: There is an impacted comminuted intertrochanteric fracture of the proximal left femur. Transcribed By: [facility] Dictated By: RADHA ZHOU MD Electronically Authenticated By: RADHA ZHOU MD Signed Date/Time: 03/27/171909 DD/ 09 TD/TT: 03/27/171909 - Differential Diagnosis hip fracture, hip dislocation, DKA Critical care attestation.: If time is entered above; I have spent that time in minutes in the direct care of this critically ill patient, excluding procedure time. ED Disposition Clinical Impression: DKA (diabetic ketoacidosis), Intertrochanteric fracture of left hip Disposition: OP ADMIT IP TO THIS HOSP Is pt being admited?: Yes Does the pt Need Aspirin: No Condition: Serious Instructions: Diabetic Ketoacidosis (ED) Referrals: ROMEL MEDRANO MD [Primary Care Provider] - 3-5 Days Time of Disposition: 23:25 (hospitalist paged)
[2017-03-27 22:02] LABS: Basophils # (Auto) 0.1 K/mm3 (0.0-0.1); Basophils % (Auto) 0.6 % (0.0-1.8); Eosinophils # (Auto) 0.1 K/mm3 (0.0-0.4); Eosinophils % (Auto) 0.9 % (0.0-4.3); Lymphocytes # (Auto) 1.7 K/mm3 (1.2-5.4); Lymphocytes % (Auto) 19.7 % (13.4-35.0); Mean Corpuscular HGB Conc 30 % (32-34); Mean Corpuscular Hemoglobin 28 pg (28-32); Mean Corpuscular Volume 92 fl (84-94); Monocytes # (Auto) 0.5 K/mm3 (0.0-0.8); Monocytes % (Auto) 5.2 % (0.0-7.3); Platelet Count 293 K/mm3 (140-440); Red Blood Count 4.15 M/mm3 (3.65-5.03); Red Cell Distribution Width 17.3 % (13.2-15.2)
[2017-03-27 22:07] LABS: Hemoglobin 11.5 gm/dl (11.8-15.2)
[2017-03-27 22:08] LABS: Hematocrit 38.2 % (35.5-45.6)
[2017-03-27 22:12] LABS: Calcium 8.2 mg/dL (8.4-10.2)
[2017-03-27] MEDS ORDERED: NovoLIN R 100 UNITS in NACL 0.9% 99 ML IV SCH (23:00)
--- NOTE | 2017-03-27 23:13 | Cat Scan Report ---
FINAL REPORT PROCEDURE: CT LOWER EXTREMITY LT WO CON TECHNIQUE: Computerized axial tomography of the LEFT hip was performed without contrast. HISTORY: left hip pain after fall COMPARISON: No prior studies are available for comparison. FINDINGS: Bony structures including marrow spaces: There is an impacted comminuted intertrochanteric fracture of the proximal left femur. Neurovascular structures: Normal. Soft tissues: Mild soft tissue swelling and slight joint effusion is noted Joint space: Normal. IMPRESSION: There is an impacted comminuted intertrochanteric fracture of the proximal left femur.
[2017-03-27 23:44] LABS: Bilirubin,Urine NEG (Negative); Blood,Urine NEG (Negative); Color,Urine Yellow (Yellow); Mucus,Urine FEW /HPF; Nitrite,Urine NEG (Negative); Urobilinogen,Urine < 2.0 mg/dL (<2.0)
[2017-03-27 23:45] LABS: Protein,Urine >500 mg/dL (Negative)
[2017-03-27] MEDS ORDERED: VANCOMYCIN/NS 1 GM/250 ML 1 GM/250 ML BAG IV SCH (23:45)
[2017-03-27] MEDS ORDERED: NACL 0.9% 1000 ML 1,000 ML IV SCH (23:45)
[2017-03-27] MEDS ORDERED: MILK OF MAGNESIA PO PRN (23:49)
[2017-03-27] MEDS ORDERED: DULCOLAX PR PRN (23:49)
[2017-03-27] MEDS ORDERED: TYLENOL PO PRN (23:49)
--- NOTE | 2017-03-27 23:49 | History and Physical Report ---
History of Present Illness Date of examination: 03/28/17 History of present illness: 31-year-old man, well known to the medicine service with a history of diabetes, CAD, MRSA comes to the emergency room because he slipped and landed on his left side. He has not taken his insulin today, in the emergency room was found to be in DKA. He developed a wound on the right forehead 3 weeks ago, stated that he is been on antibiotic but does not recall which antibiotic Review Of Systems: Constitutional: no weight loss Ears, eyes, nose, mouth and throat: no nasal congestion, no nasal discharge, no sinus pressure, blurry vision, diplopia Neck: No neck pain or rigidity. Cardiovascular: No chest pain, palpitations Respiratory: No shortness of breath, cough Gastrointestinal: No abdominal pain, hematochezia Genitourinary : no dysuria, frequency , hematuria Musculoskeletal: no muscle ache Integumentary: no rash, no pruritis Neurological: no parathesias, focal weakness Endocrine: no cold or heat intolerance, no polyuria or polydipsia Hematologic/Lymphatic: no easy bruising, no easy bleeding, no gland swelling Allergic/Immunologic: no urticaria, no angioedema. PAST MEDICAL HISTORY: diabetes, CAD, MRSA PAST SURGICAL HISTORY:None FAMILY HISTORY:Diabetes, CAD SOCIAL HISTORY:Denies alcohol, tobacco, drugs Medications and Allergies Allergies Allergy/AdvReac Type Severity Reaction Status Date / Time codeine Allergy Hives Verified 03/27/17 20:05 ondansetron HCl [From Zofran] Allergy Hives Verified 03/27/17 20:05 hydrocodone bitartrate AdvReac Headache Verified 03/27/17 20:05 [From Lortab] Home Medications Medication Instructions Recorded Confirmed Last Taken Type Insulin NPH/Regular [NovoLIN 70/30] 15 unit SUB-Q BIDDIAB 30 Days 11/09/1603/2801/31/17 Rx units Active Meds: Active Medications Dextrose (D50w (25gm) Syringe) 0 ml IV ONCE PRN PRN Reason: Hypoglycemia Insulin Human Regular 100 (units/ Sodium Chloride) 100 mls @ 4 mls/hr IV TITR SHARATH; 4 UNITS/HR PRN Reason: Protocol Exam - Physical Exam Narrative exam: Gen. appearance: Patient lying in bed in no acute distress HEENT: Right forearm abscess with yellow purulent material embedded, more superficial abscess in the mid head, pupils equal round reactive to light, extra occular movement intact, no scleral icterus, no JVD or thyromegaly or nodule, neck is supple, mucous membrane moist, no erythema or exudate Heart: S1-S2, regular rate and rhythm Lungs: Clear to auscultation bilateral breathing comfortable Abdomen: Positive bowel sounds, nontender, nondistended, no organomegaly Extremities: No edema, cyanosis, clubbing Neuro:: Oriented 3 , cranial nerves II-12 intact, speech, motor intact Skin: No rash, nodules, warm dry - Constitutional Vitals: Temp Pulse Resp BP Pulse Ox 98.4 F 93 H 9 L 80/36 99 03/27/17 20:53 03/27/17 22:25 03/27/17 22:25 03/27/17 22:25 03/27/17 22:25 Results - Labs CBC & Chem 7: 03/27/17 21:33 03/28/17 01:21 Labs: Abnormal lab results 03/27/17 03/27/17 03/27/17 Range/Units 21:26 21:33 21:33 Hgb 11.5 L (11.8-15.2) gm/dl MCHC 30 L (32-34) % RDW 17.3 H (13.2-15.2) % Seg Neutrophils % 73.6 H (40.0-70.0) % VBG pH (7.320-7.420) Sodium 123 L (137-145) mmol/L Potassium 5.5 H (3.6-5.0) mmol/L Chloride 74.9 L (98-107) mmol/L Carbon Dioxide 5 L* (22-30) mmol/L BUN 36 H (9-20) mg/dL Creatinine 1.7 H (0.8-1.5) mg/dL Glucose 1045 H* (75-100) mg/dL POC Glucose > 500 H (70-105) Calcium 8.2 L (8.4-10.2) mg/dL Urine pH (5.0-7.0) 03/27/17 03/27/17 Range/Units 21:33 Unknown Hgb (11.8-15.2) gm/dl MCHC (32-34) % RDW (13.2-15.2) % Seg Neutrophils % (40.0-70.0) % VBG pH 7.108 L* (7.320-7.420) Sodium (137-145) mmol/L Potassium (3.6-5.0) mmol/L Chloride (98-107) mmol/L Carbon Dioxide (22-30) mmol/L BUN (9-20) mg/dL Creatinine (0.8-1.5) mg/dL Glucose (75-100) mg/dL POC Glucose (70-105) Calcium (8.4-10.2) mg/dL Urine pH 9.0 H (5.0-7.0) - Imaging and Cardiology EKG: image reviewed Assessment and Plan xray and CT OF Hip reviewed Assessment DKA Left hip fracture Sepsis Abscess of right forehead CAD hypokalemia Plan Admit to medicaine Start vancomycin, IV fluids, obtain wound and blood culture Start DKA protocol with IV insulin, IV fluids, check fingersticks and serial chemistry Consult critical care, orthopedic DVT prophalaxis Patient refuse central line Bood pressure is usually low
[2017-03-28] MEDS ORDERED: VANCOMYCIN 750 MG in NACL 0.9% 250ML 250 ML IV ONE
[2017-03-28 00:16] LABS: Calcium 7.7 mg/dL (8.4-10.2); Magnesium 2.3 mg/dL (1.7-2.3)
[2017-03-28 01:56] LABS: Calcium 6.9 mg/dL (8.4-10.2)
[2017-03-28 06:47] LABS: Calcium 7.1 mg/dL (8.4-10.2)
[2017-03-28] MEDS ORDERED: D5W/0.45% NACL/KCL 20 MEQ 20 MEQ/1,000 ML BAG IV ONE (07:57)
[2017-03-28] MEDS ORDERED: D5/0.45NS 1,000 ML IV SCH (08:00)
[2017-03-28] MEDS: D5W/0.45% NACL/KCL 20 MEQ 20 MEQ/1,000 ML BAG IV SCH (08:26)
--- NOTE | 2017-03-28 09:13 | Progress Note ---
Assessment and Plan Assessment and plan: Diabetic ketoacidosis. Admit to ICU. Continue Insulin drip, fingerstick Q 1h Hyponatremia. Monitor serially Hyperkalemia. Potassium 5.5 on admission. This is now resolved ECHO. Creatinine of 1.7 on admission. This is now improving Dehydration Left Hip fracture after fall. Ortho consulted Recurrent MRSA infection. Vancomycin iv. Consult ID To r/o sepsis. Blood cultures ordered Medically non-compliant. I discussed with him importance of compliance History Interval history: Patient fell on left hip Hospitalist Physical - Physical exam Narrative exam: GEN APPEARANCE : Not in acute distress, HEENT: right forhead swelling NECK : supple, no JVD LUNGS: clear bilaterally, no wheeze HEART: S1 and S2 regular, no murmurs, rubs or gallop, ABD: Soft, non tender, non distended, normal bowel sounds EXT:No edema, no clubbing, no cyanosis, tender left hip NEURO: Awake, alert,oriented x 3, no focal signs - Constitutional Vitals: Temp Pulse Resp BP Pulse Ox 98.4 F 102 H 9 L 97/60 97 03/27/17 20:53 03/28/17 07:35 03/28/17 07:35 03/28/17 07:35 03/28/17 07:35 Results - Labs CBC & Chem 7: 03/29/17 07:00 03/29/17 07:00 Labs: Laboratory Last Values WBC 8.8 K/mm3 (4.5-11.0) 03/27/17 21:33 RBC 4.15 M/mm3 (3.65-5.03) 03/27/17 21:33 Hgb 11.5 gm/dl (11.8-15.2) L 03/27/17 21:33 Hct 38.2 % (35.5-45.6) 03/27/17 21:33 MCV 92 fl (84-94) 03/27/17 21:33 MCH 28 pg (28-32) 03/27/17 21:33 MCHC 30 % (32-34) L 03/27/17 21:33 RDW 17.3 % (13.2-15.2) H 03/27/17 21:33 Plt Count 293 K/mm3 (140-440) 03/27/17 21:33 Lymph % (Auto) 19.7 % (13.4-35.0) 03/27/17 21:33 [place] % (Auto) 5.2 % (0.0-7.3) 03/27/17 21:33 Eos % (Auto) 0.9 % (0.0-4.3) 03/27/17 21:33 Baso % (Auto) 0.6 % (0.0-1.8) 03/27/17 21:33 Lymph # 1.7 K/mm3 (1.2-5.4) 03/27/17 21:33 [place] # 0.5 K/mm3 (0.0-0.8) 03/27/17 21:33 Eos # 0.1 K/mm3 (0.0-0.4) 03/27/17 21:33 Baso # 0.1 K/mm3 (0.0-0.1) 03/27/17 21:33 Seg Neutrophils % 73.6 % (40.0-70.0) H 03/27/17 21:33 Seg Neutrophils # 6.5 K/mm3 (1.8-7.7) 03/27/17 21:33 VBG pH 7.108 (7.320-7.420) L* 03/27/17 21:33 Sodium 141 mmol/L (137-145) D 03/28/17 05:58 Potassium 3.5 mmol/L (3.6-5.0) L 03/28/17 05:58 Chloride 100.8 mmol/L (98-107) 03/28/17 05:58 Carbon Dioxide 7 mmol/L (22-30) L* 03/28/17 05:58 Anion Gap 37 mmol/L 03/28/17 05:58 BUN 36 mg/dL (9-20) H 03/28/17 05:58 Creatinine 1.8 mg/dL (0.8-1.5) H 03/28/17 05:58 Estimated GFR 45 ml/min 03/28/17 05:58 BUN/Creatinine Ratio 20 % 03/28/17 05:58 Glucose 338 mg/dL (75-100) H 03/28/17 05:58 POC Glucose 135 (70-105) H 03/28/17 07:57 Calcium 7.1 mg/dL (8.4-10.2) L 03/28/17 05:58 Phosphorus 8.60 mg/dL (2.5-4.5) H 03/27/17 23:41 Magnesium 2.30 mg/dL (1.7-2.3) 03/27/17 23:41 Urine Color Yellow (Yellow) 03/27/17 Unknown Urine Turbidity Clear (Clear) 03/27/17 Unknown Urine pH 9.0 (5.0-7.0) H 03/27/17 Unknown Ur Specific [place] 1.010 (1.003-1.030) 03/27/17 Unknown Urine Protein >500 mg/dL (Negative) 03/27/17 Unknown Urine Glucose (UA) >=500 mg/dL (Negative) 03/27/17 Unknown Urine Ketones Neg mg/dL (Negative) 03/27/17 Unknown Urine Blood Neg (Negative) 03/27/17 Unknown Urine Nitrite Neg (Negative) 03/27/17 Unknown Urine Bilirubin Neg (Negative) 03/27/17 Unknown Urine Urobilinogen < 2.0 mg/dL (<2.0) 03/27/17 Unknown Ur Leukocyte Esterase Neg (Negative) 03/27/17 Unknown Urine WBC (Auto) 2.0 /HPF (0.0-6.0) 03/27/17 Unknown Urine RBC (Auto) 1.0 /HPF (0.0-6.0) 03/27/17 Unknown Urine Mucus Few /HPF 03/27/17 Unknown
[2017-03-28 10:44] LABS: Calcium 7.1 mg/dL (8.4-10.2)
[2017-03-28] MEDS ORDERED: NACL 0.9% 500 ML 500 ML IV ONE (15:47)
[2017-03-28 16:31] LABS: BUN/Creatinine Ratio 22; Blood Urea Nitrogen 28 mg/dL (9-20); Calcium 7.6 mg/dL (8.4-10.2); Hemolysis Index 7
[2017-03-28] MEDS: D50W (25GM) Syringe IV PRN (18:10)
[2017-03-28] MEDS: MORPHINE IV PRN ×2 (18:35→23:31)
[2017-03-28] MEDS ORDERED: VANCOMYCIN VIAL 500 MG in NACL 0.9% 100 ML IV SCH (22:00)
[2017-03-29 00:53] LABS: BUN/Creatinine Ratio 20; Blood Urea Nitrogen 22 mg/dL (9-20); Calcium 7.2 mg/dL (8.4-10.2); Hemolysis Index 5
[2017-03-29] MEDS: D5W/0.45% NACL/KCL 20 MEQ 20 MEQ/1,000 ML BAG IV SCH (01:30)
[2017-03-29] MEDS: MORPHINE IV PRN ×2 (05:22→09:38)
[2017-03-29] MEDS: D50W (25GM) Syringe IV PRN ×2 (05:35→16:05)
[2017-03-29 07:48] LABS: BUN/Creatinine Ratio 20; Blood Urea Nitrogen 20 mg/dL (9-20); Calcium 7.6 mg/dL (8.4-10.2); Hemolysis Index 3
--- NOTE | 2017-03-29 07:50 | XRay Report ---
FINAL REPORT EXAM: XR HIP 2-3V LT HISTORY: pain after slip and fall COMPARISONS: None. FINDINGS: AP pelvis with lateral view left hip Radiographs were obtained on 03/27/2017 but not submitted for interpretation until 03/29/2017. An intertrochanteric fracture is present, which is also demonstrated on a CT obtained following these radiographs on 03/27/2017. Sacroiliac joints, pubic symphysis and the right hip joint are intact. IMPRESSION: Known intertrochanteric left femur fracture.
[2017-03-29 07:53] LABS: Hematocrit 28.3 % (35.5-45.6); Hemoglobin 9.5 gm/dl (11.8-15.2); Mean Corpuscular HGB Conc 34 % (32-34); Mean Corpuscular Hemoglobin 27 pg (28-32); Mean Corpuscular Volume 81 fl (84-94); Platelet Count 178 K/mm3 (140-440); Red Cell Distribution Width 18.2 % (13.2-15.2)
--- NOTE | 2017-03-29 08:43 | Progress Note ---
Assessment and Plan Assessment and plan: Diabetic ketoacidosis. Admitted to ICU. Blood glucose now controlled and anion gap closed. Will discontinue insulin drip and transitioned to subcutaneous Novolin 70/30 twice a day. Keep nothing by mouth because of likle surgery for hip fracture. Check fingersticks every 6 hours. Hyponatremia. Monitor serially Hyperkalemia. Potassium 5.5 on admission. This is now resolved ECHO. Creatinine now 1.0. Was.7 on admission. This is now improving Dehydration Left Hip fracture after fall. Ortho consulted. Likely surgery today Recurrent MRSA infection. Vancomycin iv. Consult ID To r/o sepsis. Blood cultures ordered Medically non-compliant. I discussed with him importance of compliance History Interval history: Patient fell on left hip, sustaining left hip fracture Diabetic ketoacidosis, Hospitalist Physical - Physical exam Narrative exam: GEN APPEARANCE : Not in acute distress, HEENT: right forhead swelling NECK : supple, no JVD LUNGS: clear bilaterally, no wheeze HEART: S1 and S2 regular, no murmurs, rubs or gallop, ABD: Soft, non tender, non distended, normal bowel sounds EXT:No edema, no clubbing, no cyanosis, tender left hip NEURO: Awake, alert,oriented x 3, no focal signs - Constitutional Vitals: Temp Pulse Resp BP Pulse Ox 98.8 F 79 16 98/57 98 03/29/17 05:37 03/29/17 07:00 03/29/17 07:00 03/28/17 21:48 03/29/17 03:00 Results - Labs CBC & Chem 7: 03/29/17 07:00 03/29/17 07:00 Labs: Laboratory Last Values WBC 4.9 K/mm3 (4.5-11.0) 03/29/17 07:00 RBC 3.50 M/mm3 (3.65-5.03) L 03/29/17 07:00 Hgb 9.5 gm/dl (11.8-15.2) L 03/29/17 07:00 Hct 38.2 % (35.5-45.6) 03/27/17 21:33 MCV 81 fl (84-94) L 03/29/17 07:00 MCH 27 pg (28-32) L 03/29/17 07:00 MCHC 34 % (32-34) 03/29/17 07:00 RDW 18.2 % (13.2-15.2) H 03/29/17 07:00 Plt Count 178 K/mm3 (140-440) 03/29/17 07:00 Lymph % (Auto) 19.7 % (13.4-35.0) 03/27/17 21:33 [place] % (Auto) 5.2 % (0.0-7.3) 03/27/17 21:33 Eos % (Auto) 0.9 % (0.0-4.3) 03/27/17 21:33 Baso % (Auto) 0.6 % (0.0-1.8) 03/27/17 21:33 Lymph # 1.7 K/mm3 (1.2-5.4) 03/27/17 21:33 [place] # 0.5 K/mm3 (0.0-0.8) 03/27/17 21:33 Eos # 0.1 K/mm3 (0.0-0.4) 03/27/17 21:33 Baso # 0.1 K/mm3 (0.0-0.1) 03/27/17 21:33 Seg Neutrophils % 73.6 % (40.0-70.0) H 03/27/17 21:33 Seg Neutrophils # 6.5 K/mm3 (1.8-7.7) 03/27/17 21:33 VBG pH 7.108 (7.320-7.420) L* 03/27/17 21:33 Sodium 141 mmol/L (137-145) 03/29/17 07:00 Potassium 4.1 mmol/L (3.6-5.0) 03/29/17 07:00 Chloride 111.2 mmol/L (98-107) H 03/29/17 07:00 Carbon Dioxide 17 mmol/L (22-30) L 03/29/17 07:00 Anion Gap 17 mmol/L 03/29/17 07:00 BUN 20 mg/dL (9-20) 03/29/17 07:00 Creatinine 1.0 mg/dL (0.8-1.5) 03/29/17 07:00 Estimated GFR > 60 ml/min 03/29/17 07:00 BUN/Creatinine Ratio 20 % 03/29/17 07:00 Glucose 141 mg/dL (75-100) H 03/29/17 07:00 POC Glucose 124 (70-105) H 03/29/17 06:53 Calcium 7.6 mg/dL (8.4-10.2) L 03/29/17 07:00 Phosphorus 8.60 mg/dL (2.5-4.5) H 03/27/17 23:41 Magnesium 2.30 mg/dL (1.7-2.3) 03/27/17 23:41 Urine Color Yellow (Yellow) 03/27/17 Unknown Urine Turbidity Clear (Clear) 03/27/17 Unknown Urine pH 9.0 (5.0-7.0) H 03/27/17 Unknown Ur Specific [place] 1.010 (1.003-1.030) 03/27/17 Unknown Urine Protein >500 mg/dL (Negative) 03/27/17 Unknown Urine Glucose (UA) >=500 mg/dL (Negative) 03/27/17 Unknown Urine Ketones Neg mg/dL (Negative) 03/27/17 Unknown Urine Blood Neg (Negative) 03/27/17 Unknown Urine Nitrite Neg (Negative) 03/27/17 Unknown Urine Bilirubin Neg (Negative) 03/27/17 Unknown Urine Urobilinogen < 2.0 mg/dL (<2.0) 03/27/17 Unknown Ur Leukocyte Esterase Neg (Negative) 03/27/17 Unknown Urine WBC (Auto) 2.0 /HPF (0.0-6.0) 03/27/17 Unknown Urine RBC (Auto) 1.0 /HPF (0.0-6.0) 03/27/17 Unknown Urine Mucus Few /HPF 03/27/17 Unknown
--- NOTE | 2017-03-29 10:13 | Anesthesia Consultation ---
Anesthesia Consult and Med Hx Date of service: 03/29/17 - Airway Anesthetic Teeth Evaluation: Poor ROM Head & Neck: Adequate Mental/Hyoid Distance: Adequate Mallampati Class: Class III Intubation Access Assessment: Possibly Difficult - Pulmonary Exam CTA: Yes - Cardiac Exam Cardiac Exam: RRR - Pre-Operative Health Status ASA Pre-Surgery Classification: ASA3 Proposed Anesthetic Plan: General - Pre-Anesthesia Comment Pre-Anesthesia Comments: s/p fall. MRSA, wound forehead and head. Type 1 DM- DKA, insulin drip off - Cardiovascular System Hx Angina: No - Central Nervous System Hx Neuromuscular Disorder: Yes (numbness tingling feet and hands) - Gastrointestinal Hx Gastroesophageal Reflux Disease: Yes - Endocrine Hx Insulin Dependent Diabetes: Yes (DKA- resolved, insulin drip discontinued ) - Hematic Hx Anemia: Yes
[2017-03-29] MEDS: NACL 0.9% 1000 ML 1,000 ML IV SCH (10:24)
--- NOTE | 2017-03-29 10:35 | Consultation ---
History of Present Illness Consult date: 03/29/17 Reason for consult: other (Lt IIT hip Fx,Dm,CCU admission) History of present illness: This is a 31-year-old male complaining of being asked to evaluate due to ICU admission, following left hip fracture and history of DM/DKA. The patient reportedly had a fall at home with evidence of left ITT fracture. He is scheduled for surgery this morning. admitted to ICU by [facility] for blood sugar monitoring. Patient reports that he normally takes 15 units of slow acting insulin in the morning and follow this with 6 units of rapid/or acting insulin per meal. Also has been recently on antibiotics for what appears to be on MRSA related phone call or wound in right forehead. He denies cardiac or pulmonary problems. He denies shortness of breath, chest pain fever hemoptysis. Medications and Allergies Allergies Allergy/AdvReac Type Severity Reaction Status Date / Time codeine Allergy Hives Verified 03/27/17 20:05 ondansetron HCl [From Zofran] Allergy Hives Verified 03/27/17 20:05 hydrocodone bitartrate AdvReac Headache Verified 03/27/17 20:05 [From Lortab] Home Medications Medication Instructions Recorded Confirmed Last Taken Type Insulin NPH/Regular [NovoLIN 70/30] 15 unit SUB-Q BIDDIAB 30 Days 11/09/1603/2801/31/17 Rx units Active Meds: Active Medications Acetaminophen (Tylenol) 650 mg PO Q4H PRN PRN Reason: Pain MILD(1-3)/Fever >100.5/MCKEON Last Admin: 03/28/17 08:50 Dose: 650 mg Bisacodyl (Dulcolax) 10 mg NV QDAY PRN PRN Reason: Constipation unrelieved by MOM Dextrose (D50w (25gm) Syringe) 0 ml IV ONCE PRN PRN Reason: Hypoglycemia Last Admin: 03/29/17 05:35 Dose: 15 ml Vancomycin HCl 500 mg/ Sodium (Chloride) 100 mls @ 100 mls/hr IV Q24H SHARATH Last Admin: 03/28/17 23:35 Dose: 100 mls/hr Sodium Chloride (Nacl 0.9% 1000 Ml) 1,000 mls @ 100 mls/hr IV DIRECT SHARATH Last Admin: 03/29/17 10:24 Dose: 100 mls/hr Insulin Human Isoph/Insulin Regular (Novolin 70/30) 15 unit SUB-Q BIDDIAB SHARATH Last Admin: 03/29/17 09:38 Dose: 15 unit Magnesium Hydroxide (Milk Of Magnesia) 30 ml PO Q4H PRN PRN Reason: Constipation Morphine Sulfate (Morphine) 2 mg IV Q4H PRN PRN Reason: Pain, Moderate (4-6) Last Admin: 03/29/17 09:38 Dose: 2 mg Review of Systems Constitutional: no weight loss, no weight gain, no fever, no chills, no sweats Ears, nose, mouth and throat: no ear pain, no ear discharge, no tinnitis Cardiovascular: no chest pain, no orthopnea, no palpitations, no rapid/ irregular heart beat, no edema, no syncope, no lightheadedness Respiratory: no cough, no cough with sputum, no excessive sputum, no hemoptysis Gastrointestinal: no abdominal pain, no nausea, no vomiting, no diarrhea, no constipation Musculoskeletal: no neck stiffness, no neck pain, no shooting arm pain, no arm numbness/tingling, no low back pain Integumentary: redness, wounds Neurological: no head injury Psychiatric: no anxiety, no memory loss, no change in sleep habits Endocrine: excessive thirst Hematologic/Lymphatic: no easy bruising, no easy bleeding, no lymphadenopathy, no lymphedema, no thrombophilia Physical Examination Vital signs: Vital Signs Temp Pulse BP Pulse Ox 98.4 F 68 78/40 97 03/27/17 20:53 03/27/17 20:53 03/27/17 20:53 03/27/17 20:53 General appearance: no acute distress, alert Eyes: non-icteric Neck: supple, no JVD Effort: normal Ascultation: Bilateral: clear Cardiovascular: regular rate and rhythm Gastrointestinal: normoactive bowel sounds, non-distended Integumentary: other (RT forhead wound , healing well) Extremities: no cyanosis Gait: other (can not be assessed) mood appropriate, affect normal Results - Laboratory Findings CBC and BMP: 03/30/17 05:00 03/30/17 10:46 Abnormal lab findings: Abnormal Labs 03/27/17 03/27/17 03/27/17 21:26 21:33 21:33 RBC Hgb 11.5 L Hct MCV MCH MCHC 30 L RDW 17.3 H Seg Neutrophils % 73.6 H VBG pH Sodium 123 L Potassium 5.5 H Chloride 74.9 L Carbon Dioxide 5 L* BUN 36 H Creatinine 1.7 H Glucose 1045 H* POC Glucose > 500 H Calcium 8.2 L Phosphorus Urine pH 03/27/17 03/27/17 03/27/17 21:33 23:41 Unknown RBC Hgb Hct MCV MCH MCHC RDW Seg Neutrophils % VBG pH 7.108 L* Sodium 126 L Potassium 5.6 H Chloride 80.0 L Carbon Dioxide 3 L* BUN 37 H Creatinine 1.8 H Glucose 1031 H* POC Glucose Calcium 7.7 L Phosphorus 8.60 H Urine pH 9.0 H 03/28/17 03/28/17 03/28/17 00:12 01:21 01:31 RBC Hgb Hct MCV MCH MCHC RDW Seg Neutrophils % VBG pH Sodium 130 L Potassium Chloride 86.2 L Carbon Dioxide 3 L* BUN 36 H Creatinine 1.7 H Glucose 898 H* POC Glucose > 500 H > 500 H Calcium 6.9 L Phosphorus Urine pH 03/28/17 03/28/17 03/28/17 02:34 03:51 05:27 RBC Hgb Hct MCV MCH MCHC RDW Seg Neutrophils % VBG pH Sodium Potassium Chloride Carbon Dioxide BUN Creatinine Glucose POC Glucose > 500 H 426 H 349 H Calcium Phosphorus Urine pH 03/28/17 03/28/17 03/28/17 05:58 06:36 07:57 RBC Hgb Hct MCV MCH MCHC RDW Seg Neutrophils % VBG pH Sodium Potassium 3.5 L Chloride Carbon Dioxide 7 L* BUN 36 H Creatinine 1.8 H Glucose 338 H POC Glucose 248 H 135 H Calcium 7.1 L Phosphorus Urine pH 03/28/17 03/28/17 03/28/17 09:55 11:05 12:55 RBC Hgb Hct MCV MCH MCHC RDW Seg Neutrophils % VBG pH Sodium Potassium Chloride Carbon Dioxide 13 L BUN 32 H Creatinine Glucose 118 H POC Glucose 225 H 142 H Calcium 7.1 L Phosphorus Urine pH 03/28/17 03/28/17 03/28/17 14:11 15:25 15:39 RBC Hgb Hct MCV MCH MCHC RDW Seg Neutrophils % VBG pH Sodium Potassium Chloride Carbon Dioxide 13 L BUN 28 H Creatinine Glucose 116 H POC Glucose 136 H 152 H Calcium 7.6 L Phosphorus Urine pH 03/28/17 03/28/17 03/28/17 16:50 19:07 20:07 RBC Hgb Hct MCV MCH MCHC RDW Seg Neutrophils % VBG pH Sodium Potassium Chloride Carbon Dioxide BUN Creatinine Glucose POC Glucose 135 H 186 H 146 H Calcium Phosphorus Urine pH 03/28/17 03/28/17 03/29/17 22:57 23:53 00:13 RBC Hgb Hct MCV MCH MCHC RDW Seg Neutrophils % VBG pH Sodium Potassium Chloride Carbon Dioxide 16 L BUN 22 H Creatinine Glucose 103 H POC Glucose 118 H 131 H Calcium 7.2 L Phosphorus Urine pH 03/29/17 03/29/17 03/29/17 02:32 05:32 06:53 RBC Hgb Hct MCV MCH MCHC RDW Seg Neutrophils % VBG pH Sodium Potassium Chloride Carbon Dioxide BUN Creatinine Glucose POC Glucose 182 H 66 L 124 H Calcium Phosphorus Urine pH 03/29/17 03/29/17 07:00 07:00 RBC 3.50 L Hgb 9.5 L Hct 28.3 L D MCV 81 L MCH 27 L MCHC RDW 18.2 H Seg Neutrophils % VBG pH Sodium Potassium Chloride 111.2 H Carbon Dioxide 17 L BUN Creatinine Glucose 141 H POC Glucose Calcium 7.6 L Phosphorus Urine pH Assessment and Plan LT ITT Hip Fx MRSA forehead wound DM ECHO Recommendations To surgery per orthopedics Continue sliding scale and blood sugar monitoring Restart normal oral feeding, started on standard low-dose insulin and off drip, Once cleared from surgical standpoint recovery Gentle fluids Incentive spirometry DVT prophylaxis Expected transfer outside the ICU with no additional issues after surgery. Will follow the patient while in the ICU and then sign off once transferred Thanks Critical care time was 35 minutes of [id number] evaluation coordination of care
[2017-03-29] MEDS ORDERED: MARCAINE 0.5% 30 ML INFILTRATI ONE (10:49)
[2017-03-29] MEDS ORDERED: TORADOL ONE (10:50)
[2017-03-29] MEDS ORDERED: MORPHINE ONE (10:51)
[2017-03-29] MEDS ORDERED: NACL 0.9% 250ML 0 ML ONE (10:51)
[2017-03-29] MEDS ORDERED: NACL 0.9% 100 ML ONE (10:56)
[2017-03-29] MEDS ORDERED: NACL ONE (10:56)
[2017-03-29] MEDS ORDERED: VERSED IV NR (11:00)
[2017-03-29] MEDS ORDERED: PEPCID IV NR (11:00)
--- NOTE | 2017-03-29 11:01 | Anesthesia Day of Surgery ---
Anesthesia Day of Surgery - Day of Surgery Patient Examined: Yes Patient H&P Reviewed: Yes Patient is NPO: Yes Beta Blockers: Yes Cardiac Clearance: Yes Pulmonary Clearance: Yes
[2017-03-29] MEDS ORDERED: SUBLIMAZE IV PRN (11:30)
[2017-03-29] MEDS: VANCOMYCIN/NS 1 GM/250 ML 1 GM/250 ML BAG IV SCH ×2 (11:57→22:09)
[2017-03-29] MEDS ORDERED: NEURONTIN PO NR (12:00)
[2017-03-29] MEDS ORDERED: REGLAN IV PRN (12:00)
[2017-03-29] MEDS ORDERED: XYLOCAINE MPF 2% ONE (12:04)
[2017-03-29] MEDS ORDERED: SUBLIMAZE ONE (12:05)
[2017-03-29] MEDS ORDERED: DIPRIVAN 10 MG/ML IV ONE (12:06)
[2017-03-29] MEDS ORDERED: NEO SYNEPHRINE/NS Syringe(OR USE) IV ONE ×4 (12:33→12:52)
--- NOTE | 2017-03-29 14:24 | Procedure Note ---
Date of procedure: 03/29/17 Pre-op diagnosis: displaced left intertrochanteric hip fracture Post-op diagnosis: same Procedure: Closed reduction and insertion of intramedullary nail left proximal femur Procedure The patient was brought to the OR placed in the OR table in supine position following induction and intubation by anesthesia the patient was placed onto a hand table with the left lower extremity in longitudinal traction C-arm fluoroscopy was brought in and the fracture was reduced in both the AP and lateral planes. Next a timeout procedure was done to identify the patient and the correct operative site. A stab wound was made along the proximal aspect of the left eye is taken down sharply through skin and subcutaneous using digital palpation the greater tuberosity was developed using a large awl and C-arm visualization a guidewire was inserted into the proximal femoral canal this was followed by overreaming and insertion of our guidewire A short TFN nail was inserted antegrade down the femoral canal using the targeting device the helical blade was measured and inserted it direct visualization this is followed by the placement of the distal interlocking screw AP and lateral views were obtained showing good reduction of the fracture and the placement of our hardware next the wound was copiously irrigated and was closed in a standard routine fashion. Dressings were applied patient tolerated the procedure and no complications he was sent to postanesthesia recovery in stable condition Anesthesia: GETA Surgeon: BELA DOSHI Estimated blood loss: 50-100ml Pathology: none Condition: stable Disposition: PACU
[2017-03-29] MEDS ORDERED: MORPHINE IM ONE (14:51)
[2017-03-29] MEDS ORDERED: NACL 0.9% IR ONE (14:51)
[2017-03-29] MEDS ORDERED: MARCAINE 0.5% INFILTRATI ONE (14:51)
[2017-03-29] MEDS ORDERED: NACL INFILTRATI ONE (14:52)
[2017-03-29] MEDS ORDERED: TORADOL IV ONE (14:52)
[2017-03-29] MEDS ORDERED: NACL 0.9% IV ONE (14:53)
[2017-03-29] MEDS ORDERED: WATER FOR IRRIG STERILE IR ONE (14:56)
[2017-03-29] MEDS ORDERED: SODIUM CHLORIDE FLUSH SYRINGE 10 ML IV PRN (15:00)
[2017-03-29] MEDS ORDERED: D50W (25GM) Syringe IV PRN (15:57)
[2017-03-29 16:23] LABS: Hematocrit 26.6 % (35.5-45.6); Hemoglobin 8.9 gm/dl (11.8-15.2)
[2017-03-29] MEDS ORDERED: D50W (25GM) Syringe IV ONE (17:33)
--- NOTE | 2017-03-29 18:47 | XRay Report ---
FINAL REPORT EXAM: XR HIP 2-3V LT HISTORY: LT HIP FX/LT HIP NAILING TECHNIQUE: Fluoroscopy and 3 fluoroscopic spot films obtained PRIORS: Correlation made to prior exam of March 27, 2017 FINDINGS: There is been placement left hip screw and jose david bridging previously described intertrochanteric fracture with near complete alignment there is normal positioning surgical hardware. IMPRESSION: Status post ORIF left hip fracture
[2017-03-30] MEDS: MORPHINE IV PRN ×3 (03:27→16:06)
[2017-03-30 05:52] LABS: Hematocrit 24.5 % (35.5-45.6); Hemoglobin 8.1 gm/dl (11.8-15.2); Mean Corpuscular HGB Conc 33 % (32-34); Mean Corpuscular Hemoglobin 28 pg (28-32); Mean Corpuscular Volume 83 fl (84-94); Platelet Count 121 K/mm3 (140-440); Red Blood Count 2.95 M/mm3 (3.65-5.03); Red Cell Distribution Width 18.6 % (13.2-15.2)
[2017-03-30 06:06] LABS: BUN/Creatinine Ratio 13; Blood Urea Nitrogen 16 mg/dL (9-20); Calcium 7.3 mg/dL (8.4-10.2); Hemolysis Index 1
[2017-03-30] MEDS: NACL 0.9% 1000 ML 1,000 ML IV SCH (07:44)
--- NOTE | 2017-03-30 11:02 | Progress Note ---
Assessment and Plan Assessment and plan: Diabetic ketoacidosis. Resolved. Continue Novolin 70/30 twice a day. Check fingersticks every 6 hours. Hyponatremia. Resolved. Hyperkalemia. Resolved. Continue to follow BMP Acute renal failure. Etiology likely secondary to ECHO versus vasomotor nephropathy from dehydration. Continue to follow BMP. Resolved. Dehydration Displaced left intertrochanteric hip fracture. Patient was status post closed reduction and insertion of intramedullary nail of the left proximal femur Recurrent MRSA infection. Continue Vancomycin iv. ID consultation pending. Medically non-compliant. Medical compliance was discussed with the patient at length. Disposition. Physical therapy recommends home health PT. History Interval history: No new issues overnight. Hospitalist Physical - Constitutional Vitals: Temp Pulse Resp BP Pulse Ox 91.7 F L 87 17 91/55 95 03/29/17 20:06 03/29/17 21:00 03/30/17 03:57 03/29/17 20:06 03/30/17 08:28 General appearance: Present: no acute distress, well-nourished - EENT Eyes: Present: PERRL, EOM intact ENT: hearing intact, clear oral mucosa, dentition normal - Neck Neck: Present: supple, normal ROM - Respiratory Respiratory effort: normal Respiratory: bilateral: CTA - Cardiovascular Rhythm: regular Heart Sounds: Present: S1 & S2. Absent: gallop, rub - Extremities Extremities: no ischemia, No edema, Full ROM - Abdominal General gastrointestinal: soft, non-tender, non-distended, normal bowel sounds - Integumentary Integumentary: Present: clear, warm, dry - Neurologic Neurologic: CNII-XII intact, moves all extremities Results - Labs CBC & Chem 7: 03/30/17 05:00 03/30/17 05:00 Labs: Laboratory Last Values WBC 3.0 K/mm3 (4.5-11.0) L 03/30/17 05:00 RBC 2.95 M/mm3 (3.65-5.03) L 03/30/17 05:00 Hgb 8.1 gm/dl (11.8-15.2) L 03/30/17 05:00 Hct 24.5 % (35.5-45.6) L 03/30/17 05:00 MCV 83 fl (84-94) L 03/30/17 05:00 MCH 28 pg (28-32) 03/30/17 05:00 MCHC 33 % (32-34) 03/30/17 05:00 RDW 18.6 % (13.2-15.2) H 03/30/17 05:00 Plt Count 121 K/mm3 (140-440) L 03/30/17 05:00 Lymph % (Auto) 19.7 % (13.4-35.0) 03/27/17 21:33 [place] % (Auto) 5.2 % (0.0-7.3) 03/27/17 21:33 Eos % (Auto) 0.9 % (0.0-4.3) 03/27/17 21:33 Baso % (Auto) 0.6 % (0.0-1.8) 03/27/17 21:33 Lymph # 1.7 K/mm3 (1.2-5.4) 03/27/17 21:33 [place] # 0.5 K/mm3 (0.0-0.8) 03/27/17 21:33 Eos # 0.1 K/mm3 (0.0-0.4) 03/27/17 21:33 Baso # 0.1 K/mm3 (0.0-0.1) 03/27/17 21:33 Seg Neutrophils % 73.6 % (40.0-70.0) H 03/27/17 21:33 Seg Neutrophils # 6.5 K/mm3 (1.8-7.7) 03/27/17 21:33 VBG pH 7.108 (7.320-7.420) L* 03/27/17 21:33 Sodium 138 mmol/L (137-145) 03/30/17 05:00 Potassium 4.2 mmol/L (3.6-5.0) 03/30/17 05:00 Chloride 108.6 mmol/L (98-107) H 03/30/17 05:00 Carbon Dioxide 16 mmol/L (22-30) L 03/30/17 05:00 Anion Gap 18 mmol/L 03/30/17 05:00 BUN 16 mg/dL (9-20) 03/30/17 05:00 Creatinine 1.2 mg/dL (0.8-1.5) 03/30/17 05:00 Estimated GFR > 60 ml/min 03/30/17 05:00 BUN/Creatinine Ratio 13 % 03/30/17 05:00 Glucose 60 mg/dL (75-100) L 03/30/17 05:00 POC Glucose 63 (70-105) L 03/30/17 09:43 Calcium 7.3 mg/dL (8.4-10.2) L 03/30/17 05:00 Phosphorus 8.60 mg/dL (2.5-4.5) H 03/27/17 23:41 Magnesium 2.30 mg/dL (1.7-2.3) 03/27/17 23:41 Urine Color Yellow (Yellow) 03/27/17 Unknown Urine Turbidity Clear (Clear) 03/27/17 Unknown Urine pH 9.0 (5.0-7.0) H 03/27/17 Unknown Ur Specific [place] 1.010 (1.003-1.030) 03/27/17 Unknown Urine Protein >500 mg/dL (Negative) 03/27/17 Unknown Urine Glucose (UA) >=500 mg/dL (Negative) 03/27/17 Unknown Urine Ketones Neg mg/dL (Negative) 03/27/17 Unknown Urine Blood Neg (Negative) 03/27/17 Unknown Urine Nitrite Neg (Negative) 03/27/17 Unknown Urine Bilirubin Neg (Negative) 03/27/17 Unknown Urine Urobilinogen < 2.0 mg/dL (<2.0) 03/27/17 Unknown Ur Leukocyte Esterase Neg (Negative) 03/27/17 Unknown Urine WBC (Auto) 2.0 /HPF (0.0-6.0) 03/27/17 Unknown Urine RBC (Auto) 1.0 /HPF (0.0-6.0) 03/27/17 Unknown Urine Mucus Few /HPF 03/27/17 Unknown
[2017-03-30] MEDS: VANCOMYCIN/NS 1 GM/250 ML 1 GM/250 ML BAG IV SCH ×2 (11:04→23:53)
--- NOTE | 2017-03-30 11:57 | Consultation ---
<THIEN LUCIO - Last Filed: 03/30/17 14:15> History of Present Illness - Reason for Consult Consult date: 03/30/17 Requesting physician: ROMEL CUTLER - History of Present Illness 31 years old male with history of diabetes type 1, DKA and MSSA multiple cutaneous abscesses to bilateral shoulder areas and scalp. During previous admission he was taking to the OR for I+D of cutaneous abscesses. Cultures grew MSSA. He received cefazolin IV while inpatient and discharged home on PO keflex for 14 days until 10/19/16. He reports he took the course of keflex. Patient came to the emergency room because he slipped and landed on his left side and stated that he has not taken his insulin that day In the ED, temp 98.4, HR 68, WBC 8.8K, CR 1.8, glu 1031 Microbiology: Blood cultures: / ngtd Urine cultures: Respiratory cultures: Wound cultures: 03/28 head enterococcus species Stool cultures: Other: Current Antimicrobials: Vancomycin Medications and Allergies Allergies Allergy/AdvReac Type Severity Reaction Status Date / Time codeine Allergy Hives Verified 03/27/17 20:05 ondansetron HCl [From Zofran] Allergy Hives Verified 03/27/17 20:05 hydrocodone bitartrate AdvReac Headache Verified 03/27/17 20:05 [From Lortab] Home Medications Medication Instructions Recorded Confirmed Last Taken Type Insulin NPH/Regular [NovoLIN 70/30] 15 unit SUB-Q BIDDIAB 30 Days 11/09/1603/2801/31/17 Rx units Active Meds: Active Medications Acetaminophen (Tylenol) 650 mg PO Q4H PRN PRN Reason: Pain MILD(1-3)/Fever >100.5/MCKEON Last Admin: 03/28/17 08:50 Dose: 650 mg Bisacodyl (Dulcolax) 10 mg IN QDAY PRN PRN Reason: Constipation unrelieved by MOM Dextrose (D50w (25gm) Syringe) 0 ml IV ONCE PRN PRN Reason: Hypoglycemia Last Admin: 03/29/17 16:05 Dose: 15 ml Dextrose (D50w (25gm) Syringe) 25 ml IV PRN PRN PRN Reason: Hypoglycemia Sodium Chloride (Nacl 0.9% 1000 Ml) 1,000 mls @ 100 mls/hr IV DIRECT [facility] Last Admin: 03/30/17 07:44 Dose: 100 mls/hr Vancomycin HCl (Vancomycin/Ns 1 Gm/250 Ml) 1 gm in 250 mls @ 166.667 mls/hr IV Q12HR [facility] Last Admin: 03/30/17 11:04 Dose: 166.667 mls/hr Insulin Human Isoph/Insulin Regular (Novolin 70/30) 15 unit SUB-Q BIDDIAB [facility] Last Admin: 03/30/17 08:14 Dose: 15 unit Magnesium Hydroxide (Milk Of Magnesia) 30 ml PO Q4H PRN PRN Reason: Constipation Morphine Sulfate (Morphine) 2 mg IV Q4H PRN PRN Reason: Pain, Moderate (4-6) Last Admin: 03/30/17 11:04 Dose: 2 mg Sodium Chloride (Sodium Chloride Flush Syringe 10 Ml) 10 ml IV PRN PRN PRN Reason: flush Physical Examination - Physical Exam Narrative exam: General appearance: Alert in NAD, conversant Eyes: anicteric sclerae, moist conjunctivae; no lid-lag; PERRLA HENT: Atraumatic; oropharynx clear. Neck: Trachea midline; supple, no thyromegaly or lymphadenopathy Lungs: CTA, with normal respiratory effort and no intercostal retractions CV: RRR, no murmurs Abdomen: Soft, non-tender; no masses or hepatosplenomegaly Extremities: No peripheral edema or extremity lymphadenopathy Skin: +scalp, right and left shoulder wounds with good granulation tissue; dsg to right hip Psych: Appropriate affect, calm and cooperative Neuro: alert and oriented x 3. Moving all extermities Lines: No CVL / PICC - Constitutional Vitals: Vital Signs Temp Pulse Resp BP Pulse Ox 91.7 F L 87 17 91/55 95 03/29/17 20:06 03/29/17 21:00 03/30/17 03:57 03/29/17 20:06 03/30/17 08:28 Temperature -Last 24 Hours Temperature 91.7 F Temperature 100.3 F Temperature 97.3 F Temperature 97.8 F Results - Labs CBC & Chem 7: 03/30/17 05:00 03/30/17 10:46 Labs: Abnormal lab results 03/29/17 03/29/17 03/29/17 Range/Units 09:19 12:18 15:59 WBC (4.5-11.0) K/mm3 RBC (3.65-5.03) M/mm3 Hgb (11.8-15.2) gm/dl Hct (35.5-45.6) % MCV (84-94) fl RDW (13.2-15.2) % Plt Count (140-440) K/mm3 Chloride (98-107) mmol/L Carbon Dioxide (22-30) mmol/L Glucose (75-100) mg/dL POC Glucose 223 H 112 H 64 L (70-105) Calcium (8.4-10.2) mg/dL 03/29/17 03/29/17 03/29/17 Range/Units 16:19 17:22 18:16 WBC (4.5-11.0) K/mm3 RBC (3.65-5.03) M/mm3 Hgb 8.9 L (11.8-15.2) gm/dl Hct 26.6 L (35.5-45.6) % MCV (84-94) fl RDW (13.2-15.2) % Plt Count (140-440) K/mm3 Chloride (98-107) mmol/L Carbon Dioxide (22-30) mmol/L Glucose (75-100) mg/dL POC Glucose 66 L 220 H (70-105) Calcium (8.4-10.2) mg/dL 03/29/17 03/30/17 03/30/17 Range/Units 22:27 05:00 05:00 WBC 3.0 L (4.5-11.0) K/mm3 RBC 2.95 L (3.65-5.03) M/mm3 Hgb 8.1 L (11.8-15.2) gm/dl Hct 24.5 L (35.5-45.6) % MCV 83 L (84-94) fl RDW 18.6 H (13.2-15.2) % Plt Count 121 L (140-440) K/mm3 Chloride 108.6 H (98-107) mmol/L Carbon Dioxide 16 L (22-30) mmol/L Glucose 60 L (75-100) mg/dL POC Glucose 109 H (70-105) Calcium 7.3 L (8.4-10.2) mg/dL 03/30/17 03/30/17 Range/Units 08:14 09:43 WBC (4.5-11.0) K/mm3 RBC (3.65-5.03) M/mm3 Hgb (11.8-15.2) gm/dl Hct (35.5-45.6) % MCV (84-94) fl RDW (13.2-15.2) % Plt Count (140-440) K/mm3 Chloride (98-107) mmol/L Carbon Dioxide (22-30) mmol/L Glucose (75-100) mg/dL POC Glucose 65 L 63 L (70-105) Calcium (8.4-10.2) mg/dL Assessment and Plan Assessment: 1)Hip fracture; s/p repair 2) HX of Recurrent multiple cutaneous abscesses: in the past due to MSSA - not active -head wound cx grow enteroccocus - may represent colonizers CRP = 8 3) DM - poorly controlled 3) Anemia - worsening / symptomatic 4) Non insurance status / non compliance Plan: -continue vancomycin iv for 48 hrs post op -monitor fever Thank you Dr Cutler for your consultation, will follow up with you. Thien Lucio NP for Dr. Rowena Garnica MD Infectious Diseases Specialist [facility], [place], [facility] ([facility]) M [phone] O [phone] <ROWENA MICHELLE - Last Filed: 03/31/17 08:29> Medications and Allergies Active Meds: Active Medications Acetaminophen (Tylenol) 650 mg PO Q4H PRN PRN Reason: Pain MILD(1-3)/Fever >100.5/MCKEON Last Admin: 03/28/17 08:50 Dose: 650 mg Bisacodyl (Dulcolax) 10 mg IN QDAY PRN PRN Reason: Constipation unrelieved by MOM Dextrose (D50w (25gm) Syringe) 25 ml IV PRN PRN PRN Reason: Hypoglycemia Sodium Chloride (Nacl 0.9% 1000 Ml) 1,000 mls @ 100 mls/hr IV DIRECT [facility] Last Admin: 03/30/17 07:44 Dose: 100 mls/hr Vancomycin HCl 1,250 mg/ (Sodium Chloride) 262.5 mls @ 166.667 mls/hr IV Q24HR [facility] Insulin Human Isoph/Insulin Regular (Novolin 70/30) 15 unit SUB-Q BIDDIAB [facility] Last Admin: 03/30/17 17:00 Dose: 15 unit Magnesium Hydroxide (Milk Of Magnesia) 30 ml PO Q4H PRN PRN Reason: Constipation Morphine Sulfate (Morphine) 2 mg IV Q4H PRN PRN Reason: Pain, Moderate (4-6) Last Admin: 03/31/17 05:58 Dose: 2 mg Sodium Chloride (Sodium Chloride Flush Syringe 10 Ml) 10 ml IV PRN PRN PRN Reason: flush Physical Examination - Constitutional Vitals: Vital Signs Temp Pulse Resp BP Pulse Ox 99.0 F 102 H 18 144/101 97 03/31/17 05:23 03/31/17 05:23 03/31/17 05:58 03/31/17 05:23 03/31/17 05:23 Temperature -Last 24 Hours Temperature 99.0 F Temperature 98.9 F Temperature 98.9 F Results - Labs CBC & Chem 7: 03/30/17 05:00 03/30/17 10:46 Labs: Abnormal lab results 03/30/17 03/30/17 03/30/17 Range/Units 09:43 10:46 22:28 POC Glucose 63 L (70-105) C-Reactive Protein 8.80 H (0.00-1.30) mg/dL Vancomycin Trough 28.5 H (5.0-20.0) ug/mL 03/31/17 03/31/17 Range/Units 05:50 07:37 POC Glucose < 40 L 48 L (70-105) C-Reactive Protein (0.00-1.30) mg/dL Vancomycin Trough (5.0-20.0) ug/mL Assessment and Plan I have personally interviewed and examined patient and agree with MAINTENANCE [employer]ERK Nballu report. Rowena Oh MD
--- NOTE | 2017-03-30 12:38 | Progress Note ---
Assessment and Plan doing well, s/p IM nail left hip/femur continue PT and observation Subjective Date of service: 03/30/17 Interval history: no c/o's noted, PT started today Objective Vital signs: Vital Signs - 12hr 03/30/17 03/30/17 03/30/17 02:00 03:27 03:57 Respiratory 17 17 Rate Respiratory 17 Rate [Right Face] O2 Sat by Pulse Oximetry 03/30/17 08:28 Respiratory Rate Respiratory Rate [Right Face] O2 Sat by Pulse 95 Oximetry - Labs CBC & BMP: 03/30/17 05:00 03/30/17 10:46 Labs: Abnormal lab results 03/29/17 03/29/17 03/29/17 Range/Units 09:19 15:59 16:19 WBC (4.5-11.0) K/mm3 RBC (3.65-5.03) M/mm3 Hgb 8.9 L (11.8-15.2) gm/dl Hct 26.6 L (35.5-45.6) % MCV (84-94) fl RDW (13.2-15.2) % Plt Count (140-440) K/mm3 Chloride (98-107) mmol/L Carbon Dioxide (22-30) mmol/L Glucose (75-100) mg/dL POC Glucose 223 H 64 L (70-105) Calcium (8.4-10.2) mg/dL 03/29/17 03/29/17 03/29/17 Range/Units 17:22 18:16 22:27 WBC (4.5-11.0) K/mm3 RBC (3.65-5.03) M/mm3 Hgb (11.8-15.2) gm/dl Hct (35.5-45.6) % MCV (84-94) fl RDW (13.2-15.2) % Plt Count (140-440) K/mm3 Chloride (98-107) mmol/L Carbon Dioxide (22-30) mmol/L Glucose (75-100) mg/dL POC Glucose 66 L 220 H 109 H (70-105) Calcium (8.4-10.2) mg/dL 03/30/17 03/30/17 03/30/17 Range/Units 05:00 05:00 08:14 WBC 3.0 L (4.5-11.0) K/mm3 RBC 2.95 L (3.65-5.03) M/mm3 Hgb 8.1 L (11.8-15.2) gm/dl Hct 24.5 L (35.5-45.6) % MCV 83 L (84-94) fl RDW 18.6 H (13.2-15.2) % Plt Count 121 L (140-440) K/mm3 Chloride 108.6 H (98-107) mmol/L Carbon Dioxide 16 L (22-30) mmol/L Glucose 60 L (75-100) mg/dL POC Glucose 65 L (70-105) Calcium 7.3 L (8.4-10.2) mg/dL 03/30/17 Range/Units 09:43 WBC (4.5-11.0) K/mm3 RBC (3.65-5.03) M/mm3 Hgb (11.8-15.2) gm/dl Hct (35.5-45.6) % MCV (84-94) fl RDW (13.2-15.2) % Plt Count (140-440) K/mm3 Chloride (98-107) mmol/L Carbon Dioxide (22-30) mmol/L Glucose (75-100) mg/dL POC Glucose 63 L (70-105) Calcium (8.4-10.2) mg/dL
[2017-03-31] MEDS: MORPHINE IV PRN ×5 (05:58→22:49)
[2017-03-31] MEDS: D50W (25GM) Syringe IV PRN ×2 (05:59→07:39)
[2017-03-31] MEDS ORDERED: VANCOMYCIN 1,250 MG in NACL 0.9% 250ML 250 ML IV SCH (10:00)
[2017-03-31] MEDS: NACL 0.9% 1000 ML 1,000 ML IV SCH ×2 (10:39→22:50)
--- NOTE | 2017-03-31 11:22 | Progress Note ---
Assessment and Plan Assessment and plan: Diabetic ketoacidosis. Resolved. Continue Novolin 70/30 twice a day. Check fingersticks every 6 hours. Hypoglycemia. Episodes x 2 past two mornings. We will decrease 70/30 pm insulin to 6 units HX of Recurrent multiple cutaneous abscesses. Cont Vanc for 24 more hours per ID recommendations Acute renal failure. Etiology likely secondary to ECHO versus vasomotor nephropathy from dehydration. Continue to follow BMP. Resolved. Dehydration Displaced left intertrochanteric hip fracture. Patient was status post closed reduction and insertion of intramedullary nail of the left proximal femur Anemia. Likely related to blood loss from surgery. Transfuse hemoglobin < 7. Medically non-compliant. Medical compliance was discussed with the patient at length. Disposition. Physical therapy recommends home health PT. Likely d/c in am History Interval history: No new issues overnight. Hospitalist Physical - Constitutional Vitals: Temp Pulse Resp BP Pulse Ox 97.6 F 119 H 18 128/90 79 L 03/31/17 08:59 03/31/17 08:59 03/31/17 08:59 03/31/17 08:59 03/31/17 08:59 General appearance: Present: no acute distress, well-nourished - EENT Eyes: Present: PERRL, EOM intact ENT: hearing intact, clear oral mucosa, dentition normal - Neck Neck: Present: supple, normal ROM - Respiratory Respiratory effort: normal Respiratory: bilateral: CTA - Cardiovascular Rhythm: regular Heart Sounds: Present: S1 & S2. Absent: gallop, rub - Extremities Extremities: no ischemia, No edema, Full ROM - Abdominal General gastrointestinal: soft, non-tender, non-distended, normal bowel sounds - Integumentary Integumentary: Present: clear, warm, dry - Neurologic Neurologic: CNII-XII intact, moves all extremities Results - Labs CBC & Chem 7: 03/30/17 05:00 03/30/17 10:46 Labs: Laboratory Last Values WBC 3.0 K/mm3 (4.5-11.0) L 03/30/17 05:00 RBC 2.95 M/mm3 (3.65-5.03) L 03/30/17 05:00 Hgb 8.1 gm/dl (11.8-15.2) L 03/30/17 05:00 Hct 24.5 % (35.5-45.6) L 03/30/17 05:00 MCV 83 fl (84-94) L 03/30/17 05:00 MCH 28 pg (28-32) 03/30/17 05:00 MCHC 33 % (32-34) 03/30/17 05:00 RDW 18.6 % (13.2-15.2) H 03/30/17 05:00 Plt Count 121 K/mm3 (140-440) L 03/30/17 05:00 Lymph % (Auto) 19.7 % (13.4-35.0) 03/27/17 21:33 [place] % (Auto) 5.2 % (0.0-7.3) 03/27/17 21:33 Eos % (Auto) 0.9 % (0.0-4.3) 03/27/17 21:33 Baso % (Auto) 0.6 % (0.0-1.8) 03/27/17 21:33 Lymph # 1.7 K/mm3 (1.2-5.4) 03/27/17 21:33 [place] # 0.5 K/mm3 (0.0-0.8) 03/27/17 21:33 Eos # 0.1 K/mm3 (0.0-0.4) 03/27/17 21:33 Baso # 0.1 K/mm3 (0.0-0.1) 03/27/17 21:33 Seg Neutrophils % 73.6 % (40.0-70.0) H 03/27/17 21:33 Seg Neutrophils # 6.5 K/mm3 (1.8-7.7) 03/27/17 21:33 VBG pH 7.108 (7.320-7.420) L* 03/27/17 21:33 Sodium 138 mmol/L (137-145) 03/30/17 05:00 Potassium 4.2 mmol/L (3.6-5.0) 03/30/17 05:00 Chloride 108.6 mmol/L (98-107) H 03/30/17 05:00 Carbon Dioxide 16 mmol/L (22-30) L 03/30/17 05:00 Anion Gap 18 mmol/L 03/30/17 05:00 BUN 16 mg/dL (9-20) 03/30/17 05:00 Creatinine 1.2 mg/dL (0.8-1.5) 03/30/17 05:00 Estimated GFR > 60 ml/min 03/30/17 05:00 BUN/Creatinine Ratio 13 % 03/30/17 05:00 Glucose 75 mg/dL (75-100) 03/30/17 10:46 POC Glucose 48 (70-105) L 03/31/17 07:37 Calcium 7.3 mg/dL (8.4-10.2) L 03/30/17 05:00 Phosphorus 8.60 mg/dL (2.5-4.5) H 03/27/17 23:41 Magnesium 2.30 mg/dL (1.7-2.3) 03/27/17 23:41 C-Reactive Protein 8.80 mg/dL (0.00-1.30) H 03/30/17 10:46 Urine Color Yellow (Yellow) 03/27/17 Unknown Urine Turbidity Clear (Clear) 03/27/17 Unknown Urine pH 9.0 (5.0-7.0) H 03/27/17 Unknown Ur Specific [place] 1.010 (1.003-1.030) 03/27/17 Unknown Urine Protein >500 mg/dL (Negative) 03/27/17 Unknown Urine Glucose (UA) >=500 mg/dL (Negative) 03/27/17 Unknown Urine Ketones Neg mg/dL (Negative) 03/27/17 Unknown Urine Blood Neg (Negative) 03/27/17 Unknown Urine Nitrite Neg (Negative) 03/27/17 Unknown Urine Bilirubin Neg (Negative) 03/27/17 Unknown Urine Urobilinogen < 2.0 mg/dL (<2.0) 03/27/17 Unknown Ur Leukocyte Esterase Neg (Negative) 03/27/17 Unknown Urine WBC (Auto) 2.0 /HPF (0.0-6.0) 03/27/17 Unknown Urine RBC (Auto) 1.0 /HPF (0.0-6.0) 03/27/17 Unknown Urine Mucus Few /HPF 03/27/17 Unknown Vancomycin Trough 28.5 ug/mL (5.0-20.0) H 03/30/17 22:28
--- NOTE | 2017-03-31 12:41 | Progress Note ---
Assessment and Plan Assessment: 1)Hip fracture; s/p repair 2) HX of Recurrent multiple cutaneous abscesses: in the past due to MSSA - not active -head wound cx grow enteroccocus - may represent colonizers CRP = 8 3) DM - poorly controlled 3) Anemia - worsening / symptomatic 4) Non insurance status / non compliance Plan: -continue vancomycin iv for 48 hrs post op -f/u with Dr. Oh in 2 weeks we will sign off Thank you Dr Cutler for your consultation, will follow up with you. Thien Lucio NP for Dr. Rowena Garnica MD Infectious Diseases Specialist [facility] ([facility]) M [phone] O [phone] Subjective Date of service: 03/31/17 Objective - Exam Narrative Exam: General appearance: Alert in NAD, conversant Eyes: anicteric sclerae, moist conjunctivae; no lid-lag; PERRLA HENT: Atraumatic; oropharynx clear. Neck: Trachea midline; supple, no thyromegaly or lymphadenopathy Lungs: CTA, with normal respiratory effort and no intercostal retractions CV: RRR, no murmurs Abdomen: Soft, non-tender; no masses or hepatosplenomegaly Extremities: No peripheral edema or extremity lymphadenopathy Skin: +scalp, right and left shoulder wounds with good granulation tissue; dsg to right hip Psych: Appropriate affect, calm and cooperative Neuro: alert and oriented x 3. Moving all extermities Lines: No CVL / PICC - Constitutional Vitals: Vital Signs Temp Pulse Resp BP Pulse Ox 97.6 F 119 H 18 128/90 79 L 03/31/17 08:59 03/31/17 08:59 03/31/17 08:59 03/31/17 08:59 03/31/17 08:59 Temperature -Last 24 Hours Temperature 97.6 F Temperature 99.0 F Temperature 98.9 F Temperature 98.9 F - Labs CBC & Chem 7: 03/30/17 05:00 03/30/17 10:46 Labs: Abnormal lab results 03/30/17 03/30/17 03/31/17 Range/Units 10:46 22:28 05:50 POC Glucose < 40 L (70-105) C-Reactive Protein 8.80 H (0.00-1.30) mg/dL Vancomycin Trough 28.5 H (5.0-20.0) ug/mL 03/31/17 03/31/17 Range/Units 07:37 08:51 POC Glucose 48 L 48 L (70-105) C-Reactive Protein (0.00-1.30) mg/dL Vancomycin Trough (5.0-20.0) ug/mL
[2017-04-01 06:16] LABS: Basophils % (Auto) 1.2 % (0.0-1.8); Eosinophils # (Auto) 0.2 K/mm3 (0.0-0.4); Hematocrit 26.3 % (35.5-45.6); Hemoglobin 8.7 gm/dl (11.8-15.2); Lymphocytes # (Auto) 1.1 K/mm3 (1.2-5.4); Lymphocytes % (Auto) 25.7 % (13.4-35.0); Mean Corpuscular HGB Conc 33 % (32-34); Mean Corpuscular Hemoglobin 28 pg (28-32); Mean Corpuscular Volume 84 fl (84-94); Monocytes # (Auto) 0.5 K/mm3 (0.0-0.8); Monocytes % (Auto) 11.1 % (0.0-7.3); Platelet Count 139 K/mm3 (140-440); Red Blood Count 3.14 M/mm3 (3.65-5.03); Red Cell Distribution Width 18.5 % (13.2-15.2)
[2017-04-01 06:32] LABS: Calcium 7.8 mg/dL (8.4-10.2)
--- NOTE | 2017-04-01 08:19 | Discharge Summary ---
Providers - Providers Date of Admission: 03/27/17 23:49 Date of discharge: 04/01/17 Attending physician: MUNDO RIGGS 03/27/17 23:31 Consult to Physician [CONS] Urgent Consulting Provider: BELA DOMINGUEZ Reason For Exam: left hip fracture Place consult to:: Dr. Dominguez Notified:: Via his number Phone number called:: his number Was contact made?: Yes If yes, spoke with:: Dr. Dominguez Time called:: 23:30 Comment:: Dr. Navas ( dr) spoke with Dr. Dominguez 03/27/17 23:49 Consult to Physician [CONS] Routine Consulting Provider: PORFIRIO MORALES Reason For Exam: cc Place consult to:: Dr. Morales Notified:: Answering Service Phone number called:: [phone] Was contact made?: Yes If yes, spoke with:: Treasure Time called:: 23:58 03/28/17 09:40 Consult to Physician [CONS] Routine Consulting Provider: JOSUE MICHELLE Reason For Exam: MRSA abscesses Place consult to:: Dr. Oh Notified:: yes Phone number called:: [phone] Was contact made?: Yes If yes, spoke with:: Dr. Oh Time called:: 10:23 03/29/17 08:58 Consult to Wound/ET Nurse [CONS] Urgent Reason For Exam: wound eval for head laceration 03/29/17 14:16 Physical Therapy Evaluation and Treat [CONS] Routine Comment: Reason For Exam: post op evaluation Weight bearing status?: Full wt bearing Assistive devices?: Yes If so list: Walker Primary care physician: ROMEL MEDRANO Hospitalization Reason for admission: hip fx and DKA Condition: Serious Hospital course: This is a 31-year-old male admitted with dx of left hip fracture and DKA. The patient reportedly had a fall at home with evidence of left ITT fracture. He received surgery and was seen by orthopedics in consultation. Pt. was rx for DKA prior to surgery with IVF hydration and insulin drip. Patient was later transitioned to his normal regimen of 15 units of slow acting insulin BID. PT. was also treated with antibiotics of vancomycin for MRSA cutaneous abscesses and seen by ID in consult. PT recommended home PT. Dedicated d/c 34 min Disposition: - TO HOME OR SELFCARE Time spent for discharge: 34 - Discharge Diagnoses (1) DKA (diabetic ketoacidosis) Status: Acute Qualifiers: (2) Intertrochanteric fracture of left hip Status: Acute (3) ECHO (acute kidney injury) Status: Acute (4) Abscess Status: Acute (5) Acute kidney injury Status: Acute Core Measure Documentation - Palliative Care Palliative Care/ Comfort Measures: Not Applicable - Core Measures Any of the following diagnoses?: none Exam - Constitutional Vitals: Temp Pulse Resp BP Pulse Ox 98.0 F 111 H 20 112/74 87 04/01/17 00:19 04/01/17 00:19 04/01/17 00:19 04/01/17 00:19 04/01/17 00:19 General appearance: Present: no acute distress, well-nourished - EENT Eyes: Present: PERRL ENT: hearing intact, clear oral mucosa - Neck Neck: Present: supple, normal ROM - Respiratory Respiratory effort: normal Respiratory: bilateral: CTA - Cardiovascular Heart Sounds: Present: S1 & S2. Absent: rub, click - Extremities Extremities: pulses symmetrical, No edema Peripheral Pulses: within normal limits - Abdominal General gastrointestinal: Present: soft, non-tender, non-distended, normal bowel sounds Male genitourinary: Present: normal - Integumentary Integumentary: Present: clear, warm, dry - Musculoskeletal Musculoskeletal: gait normal, strength equal bilaterally - Psychiatric Psychiatric: appropriate mood/affect, intact judgment & insight - Neurologic Neurologic: CNII-XII intact, moves all extremities Plan Activity: no restrictions Weight Bearing Status: Full Weight Bearing Diet: diabetic Special Instructions: home health RN Follow up with: ROMEL MEDRANO MD [Primary Care Provider] - 3-5 Days JOSUE MICHELLE MD [Staff Physician] - 7 Days BELA DOMINGUEZ MD [Staff Physician] - 7 Days Prescriptions: Insulin NPH/Regular [NovoLIN 70/30] 10 unit SUB-Q QPMDIAB #30 units Insulin NPH/Regular [NovoLIN 70/30] 15 unit SUB-Q QAMDIAB #30 units
[2017-04-01 08:41] VITALS: BP 119/81
[2017-04-01] MEDS: MORPHINE IV PRN (09:41)
== END 2017-04-01 18:22 | disposition home or self-care (01) | DRG 853 ==
LOC: ED 19:25 → CC1 23:49 → 3B-SURG 03-29 12:33
PROVIDERS: ADMIT Internal Medicine; ATTEND Hospitalist
PROC: 0QS736Z Reposition Left Upper Femur with Intramedullary Internal Fixation Device, Percutaneous Approach (ICD-10-PCS; principal; 2017-03-29)
DX: A41.9 Sepsis, unspecified organism (principal); S72.142A Displaced intertrochanteric fracture of left femur, initial encounter for closed fracture; E10.10 Type 1 diabetes mellitus with ketoacidosis without coma; L02.01 Cutaneous abscess of face; E87.1 Hypo-osmolality and hyponatremia; N17.9 Acute kidney failure, unspecified; W01.0XXA Fall on same level from slipping, tripping and stumbling without subsequent striking against object, initial encounter; D64.9 Anemia, unspecified; I25.10 Atherosclerotic heart disease of native coronary artery without angina pectoris; E86.0 Dehydration; B95.61 Methicillin susceptible Staphylococcus aureus infection as the cause of diseases classified elsewhere; E87.6 Hypokalemia; E87.5 Hyperkalemia; Z91.19 Patient's noncompliance with other medical treatment and regimen; Y93.89 Activity, other specified; Y92.091 Bathroom in other non-institutional residence as the place of occurrence of the external cause; Y99.8 Other external cause status; Z83.3 Family history of diabetes mellitus; Z82.49 Family history of ischemic heart disease and other diseases of the circulatory system; Z79.4 Long term (current) use of insulin; Z88.5 Allergy status to narcotic agent; Z88.8 Allergy status to other drugs, medicaments and biological substances
CPT/HCPCS: 36415; 80048; 80202; 81001; 82805; 82947; 82962; 83735; 84100; 85014; 85018; 85025; 85027; 86140; 87040; 87045; 87076; 87116; 87186; 87324; 94760; C1713; C1769; J1815; J1885; J2250; J2270; J2370; J2704; J2765; J3010; J3370; J7030; J7040; J7050

== ENCOUNTER 2017-04-24 18:10 | Observation (INO) | payer SELFPAY ==
[2017-04-24] MEDS ORDERED: NACL 0.9% 1000 ML 1,000 ML IV ONE (18:59)
[2017-04-24] MEDS ORDERED: ZOFRAN IV ONE (18:59)
--- NOTE | 2017-04-24 19:02 | Emergency Department Report ---
HPI - General Chief Complaint: Hyperglycemia Time Seen by Provider: 04/24/17 18:43 - HPI HPI: Room 24 The patient is a 31-year-old male presented with chief complaint of hyperglycemia. The patient states since yesterday his glucose is elevated. Yesterday he noticed his blood sugars in the 400s. Today the patient states his glucometer read "high." The patient called EMS and was found to be hyperglycemic at 308. The patient states today he is also pain across his entire chest that is sharp when he takes a deep breath in. The patient admits to midepigastric/right upper quadrant abdominal pain as well. The patient states he feels dizzy when attempting to walk at times. Patient denies cough or fever. Location: [See above] Duration: [See above] Quality: Sharp Severity: Moderate Modifying factors: [see above] Context: [see above] Mode of transportation: [not driving] ED Past Medical Hx - Past Medical History Hx Hypertension: Yes Hx Diabetes: Yes Hx HIV: (States he does not have HIV) Additional medical history: staph infection, CHEST DEFORMITY - Surgical History Additional Surgical History: wound debridement (staph infection)--NECK AND BACK - Family History Family history: no significant - Social History Smoking Status: Never Smoker Substance Use Type: None (denies illicit drug use) - Medications Home Medications: Home Medications Medication Instructions Recorded Confirmed Last Taken Type Insulin NPH/Regular [NovoLIN 70/30] 10 unit SUB-Q QPMDIAB #30 units 04/01/17 Unknown Rx Insulin NPH/Regular [NovoLIN 70/30] 15 unit SUB-Q QAMDIAB #30 units 04/01/17 Unknown Rx ED Review of Systems ROS: Stated complaint: HYPERGLYCEMIA Other details as noted in HPI Constitutional: denies: fever Cardiovascular: chest pain Endocrine: other (hyperglycemia) Gastrointestinal: abdominal pain Neurological: other (dizziness with standing/orthostasis) Physical Exam - Physical Exam Vital Signs: Vital Signs 04/24/17 04/24/17 04/24/17 18:14 18:15 18:18 Temperature 97.6 F 98.2 F Pulse Rate 94 H 95 H 96 H Respiratory 12 18 26 H Rate Blood Pressure 99/64 106/79 Blood Pressure [Right] O2 Sat by Pulse 98 95 Oximetry 04/24/17 04/24/17 04/24/17 18:20 18:30 18:39 Temperature 97.6 F Pulse Rate 95 H 100 H 94 H Respiratory 12 12 12 Rate Blood Pressure 99/64 102/66 Blood Pressure 99/64 [Right] O2 Sat by Pulse 97 97 98 Oximetry 04/24/17 18:42 Temperature Pulse Rate Respiratory 12 Rate Blood Pressure Blood Pressure [Right] O2 Sat by Pulse 98 Oximetry Physical Exam: GENERAL: The patient is well-developed well-nourished male lying on a stretcher not appearing to be in acute distress. I have seen Mr. Krishnan multiple times in the past and he looks a lot more alert and healthy-appearing then he has during previous visits when he presents with DKA HEENT: Normocephalic. Atraumatic. Extraocular motions are intact. Patient has moist mucous membranes. NECK: Supple. Trachea midline CHEST/LUNGS: Clear to auscultation. There is no respiratory distress noted. HEART/CARDIOVASCULAR: Regular. There is no tachycardia. There is no gallop rub or murmur. ABDOMEN: Abdomen is soft, with mild discomfort to palpation in the right upper quadrant. Patient has normal bowel sounds. There is no abdominal distention. SKIN: There is chronic appearing scalp lesions. There is no diaphoresis. NEURO: The patient is awake, alert, and oriented. The patient is cooperative. The patient has normal speech MUSCULOSKELETAL: There is no evidence of acute injury. ED Course Vital Signs 04/24/17 04/24/17 04/24/17 18:14 18:15 18:18 Temperature 97.6 F 98.2 F Pulse Rate 94 H 95 H 96 H Respiratory 12 18 26 H Rate Blood Pressure 99/64 106/79 Blood Pressure [Right] O2 Sat by Pulse 98 95 Oximetry 04/24/17 04/24/17 04/24/17 18:20 18:30 18:39 Temperature 97.6 F Pulse Rate 95 H 100 H 94 H Respiratory 12 12 12 Rate Blood Pressure 99/64 102/66 Blood Pressure 99/64 [Right] O2 Sat by Pulse 97 97 98 Oximetry 04/24/17 18:42 Temperature Pulse Rate Respiratory 12 Rate Blood Pressure Blood Pressure [Right] O2 Sat by Pulse 98 Oximetry - Consultations Consultation #1: 04/24/17 22:43 Cardiology paged 04/24/17 22:[address] Mckeon- recommends trending troponin and have hospitalist admit. No immediate intervention necessary at this time. Elevated troponin likely secondary to lactic acidosis ED Medical Decision Making - Lab Data Result diagrams: 04/24/17 18:58 04/24/17 18:58 Laboratory Tests 04/24/17 04/24/17 04/24/17 18:15 18:28 18:58 WBC 6.0 RBC 3.65 Hgb 10.5 L Hct 30.3 L MCV 83 L MCH 29 MCHC 35 H RDW 16.3 H Plt Count 325 Lymph % (Auto) 20.8 Scott % (Auto) 12.0 H Eos % (Auto) 1.4 Baso % (Auto) 0.7 Lymph # 1.2 Scott # 0.7 Eos # 0.1 Baso # 0.0 Seg Neutrophils % 65.1 Seg Neutrophils # 3.9 VBG pH Sodium Potassium Chloride Carbon Dioxide Anion Gap BUN Creatinine Estimated GFR BUN/Creatinine Ratio Glucose POC Glucose 138 H Calcium Total Bilirubin AST ALT Alkaline Phosphatase Total Creatine Kinase CK-MB (CK-2) CK-MB (CK-2) Rel Index Troponin T Total Protein Albumin Albumin/Globulin Ratio Triglycerides Cholesterol LDL Cholesterol Direct HDL Cholesterol Cholesterol/HDL Ratio Lipase Urine Color Yellow Urine Turbidity Clear Urine pH 5.0 Ur Specific [place] 1.018 Urine Protein 30 mg/dl Urine Glucose (UA) >=500 Urine Ketones 20 Urine Blood Sm Urine Nitrite Neg Urine Bilirubin Neg Urine Urobilinogen < 2.0 Ur Leukocyte Esterase Neg Urine WBC (Auto) 2.0 Urine RBC (Auto) 3.0 U Epithel Cells (Auto) < 1.0 Urine Bacteria (Auto) 1+ Amorphous Crystals Few Urine Mucus Few 04/24/17 04/24/17 18:58 18:58 WBC RBC Hgb Hct MCV MCH MCHC RDW Plt Count Lymph % (Auto) Scott % (Auto) Eos % (Auto) Baso % (Auto) Lymph # Scott # Eos # Baso # Seg Neutrophils % Seg Neutrophils # VBG pH 7.290 L Sodium 138 Potassium 3.1 L Chloride 104.6 Carbon Dioxide 14 L Anion Gap 23 BUN 47 H Creatinine 1.3 Estimated GFR > 60 BUN/Creatinine Ratio 36 Glucose 104 H POC Glucose Calcium 9.8 Total Bilirubin 0.50 AST 12 ALT 12 Alkaline Phosphatase 211 H Total Creatine Kinase 17 L CK-MB (CK-2) 5.5 H CK-MB (CK-2) Rel Index 32.3 H Troponin T 0.050 H Total Protein 6.6 Albumin 3.8 L Albumin/Globulin Ratio 1.4 Triglycerides 221 H Cholesterol 151 LDL Cholesterol Direct 42 L HDL Cholesterol 65 H Cholesterol/HDL Ratio 2.32 Lipase 1261 H Urine Color Urine Turbidity Urine pH Ur Specific [place] Urine Protein Urine Glucose (UA) Urine Ketones Urine Blood Urine Nitrite Urine Bilirubin Urine Urobilinogen Ur Leukocyte Esterase Urine WBC (Auto) Urine RBC (Auto) U Epithel Cells (Auto) Urine Bacteria (Auto) Amorphous Crystals Urine Mucus - EKG Data -: EKG Interpreted by Me EKG shows normal: sinus rhythm Rate: normal - EKG Data When compared to previous EKG there are: previous EKG unavailable Interpretation: other (no ischemic changes seen) - Radiology Data Radiology results: report reviewed (CT abdomen and pelvis), image reviewed (CT abdomen and pelvis) FINAL REPORT EXAM: CT ABDOMEN PELVIS W CON HISTORY: right-sided abdominal pain TECHNIQUE: Standard enhanced CT of the abdomen and pelvis. Coronal and sagittal reconstruction was also performed. Delayed imaging through the kidneys and bladder was obtained. Contrast: 100 mL Omnipaque 350 given IV. PRIORS: None. FINDINGS: There is diffuse concentric wall thickening throughout the colon. In this distribution, findings are most typical of C difficile colitis. Crohn's disease would be less likely. No evidence for localized perforation or diverticulitis is seen. The small bowel is mildly distended but no evidence for transition zone is seen. Findings suggest mild ileus. There is low-density free fluid present in the abdomen and pelvis, around the liver, spleen, and interspersed among bowel loops. Within the abdomen, the liver, spleen, pancreas, gallbladder, adrenal glands, and kidneys are unremarkable. No evidence for retroperitoneal or pelvic lymphadenopathy is seen. No soft tissue mass, fluid collection, inflammatory change, or free air is seen within the abdomen or pelvis. The appendix is normal. Within the pelvis, the bladder is unremarkable. The prostate is normal. No evidence for mass or lymphadenopathy is seen in the pelvis. Images through the upper abdomen include the lung bases which are expanded and clear. The distal esophagus demonstrates diffuse concentric wall thickening consistent with esophagitis. Bony structures show an intramedullary jose david and screw in the proximal left femur. IMPRESSION: 1. Diffuse wall thickening throughout the entire colon. Findings are most typical C difficile colitis 2. Distention of small bowel, probably due to mild ileus. 3. Specific ascites throughout the abdomen and pelvis 4. concentric wall thickening of the distal esophagus suggesting esophagitis Transcribed By: [facility] Dictated By: ANGELINA ANN MD Electronically Authenticated By: ANGELINA ANN MD Signed Date/Time: 04/24/172148 FINAL REPORT EXAM: CT ANGIO CHEST HISTORY: chest pain TECHNIQUE: Enhanced CT of the chest at 1.25 mm axial intervals following a pulmonary embolism protocol. Coronal and sagittal imaging were also obtained. Coronal oblique MIP projections were obtained. Contrast: 100 ml of Omnipaque 350 given IV. PRIORS: CT chest 10/12/2016 FINDINGS: There is no evidence for pulmonary embolism in the main pulmonary artery, right and left pulmonary arteries or their major distributions. However, CT does not exclude distal pulmonary emboli. There is diffuse concentric wall thickening of the distal half of the esophagus consistent with esophagitis. The wall measures up to 9.4 mm in thickness in the distal aspect (axial image 76). Otherwise, the lung parenchyma are expanded and clear with no evidence for parenchymal nodules, infiltrates, congestion, or pleural effusion. There is no evidence for mediastinal, hilar, or axillary adenopathy. Cardiovascular structures are within normal limits. No evidence for ventricular chamber enlargement is seen. Images through the lung bases include the upper abdomen which show no abnormalities of the visualized abdominal viscera. Bony structures demonstrate anterior wedging of T8 and T11 with mild endplate narrowing superiorly at T11. These are stable and remote. IMPRESSION: No evidence for pulmonary embolism. Diffuse concentric wall thickening of the distal half the esophagus suggesting esophagitis Transcribed By: [facility] Dictated By: ANGELINA ANN MD Electronically Authenticated By: ANGELINA ANN MD Signed Date/Time: 04/24/172206 DD/ 06 TD/TT: 04/24/172206 DD/ 48 TD/TT: 04/24/172148 - Differential Diagnosis PE, hyperglycemia, pancreatitis, gastritis Critical care attestation.: If time is entered above; I have spent that time in minutes in the direct care of this critically ill patient, excluding procedure time. ED Disposition Clinical Impression: Chest pain, Acute pancreatitis, Elevated troponin, DKA (diabetic ketoacidoses) Disposition: OP ADMIT IP TO THIS HOSP Is pt being admited?: Yes Does the pt Need Aspirin: Yes Condition: Fair Instructions: Chest Pain (ED), Diabetic Ketoacidosis (ED) Referrals: PRIMARY CARE,MD [Primary Care Provider] - 3-5 Days Time of Disposition: 22:48 (hospitalist paged (Dr Story))
[2017-04-24 19:18] LABS: Amorphous Crystals,Urine Few; Bacteria,Urine 1+ /HPF (Negative); Bilirubin,Urine NEG (Negative); Blood,Urine SM (Negative); Color,Urine Yellow (Yellow); Mucus,Urine FEW /HPF; Urobilinogen,Urine < 2.0 mg/dL (<2.0)
[2017-04-24] MEDS: SUBLIMAZE IV ONE ×2 (19:51→21:27)
[2017-04-24 19:57] LABS: Basophils % (Auto) 0.7 % (0.0-1.8); Eosinophils # (Auto) 0.1 K/mm3 (0.0-0.4); Eosinophils % (Auto) 1.4 % (0.0-4.3); Hematocrit 30.3 % (35.5-45.6); Hemoglobin 10.5 gm/dl (11.8-15.2); Lymphocytes # (Auto) 1.2 K/mm3 (1.2-5.4); Lymphocytes % (Auto) 20.8 % (13.4-35.0); Mean Corpuscular HGB Conc 35 % (32-34); Mean Corpuscular Hemoglobin 29 pg (28-32); Mean Corpuscular Volume 83 fl (84-94); Monocytes # (Auto) 0.7 K/mm3 (0.0-0.8); Platelet Count 325 K/mm3 (140-440); Red Blood Count 3.65 M/mm3 (3.65-5.03); Red Cell Distribution Width 16.3 % (13.2-15.2)
[2017-04-24 20:11] LABS: Creatine Kinase MB 5.5 ng/mL (0.0-4.0)
[2017-04-24 20:12] LABS: Alanine Aminotransferase 12 units/L (7-56); Albumin 3.8 g/dL (3.9-5); BUN/Creatinine Ratio 36; Blood Urea Nitrogen 47 mg/dL (9-20); Calcium 9.8 mg/dL (8.4-10.2); Hemolysis Index 2
[2017-04-24 20:23] LABS: Chol/HDL Ratio 2.32 %; HDL Cholesterol 65 mg/dL (40-59); LDL Cholesterol,Direct 42 mg/dL (50-130)
[2017-04-24] MEDS ORDERED: ASPIRIN PO ONE (20:29)
[2017-04-24 20:36] LABS: Lipase 1261 units/L (13-60)
--- NOTE | 2017-04-24 21:53 | Cat Scan Report ---
FINAL REPORT EXAM: CT ABDOMEN PELVIS W CON HISTORY: right-sided abdominal pain TECHNIQUE: Standard enhanced CT of the abdomen and pelvis. Coronal and sagittal reconstruction was also performed. Delayed imaging through the kidneys and bladder was obtained. Contrast: 100 mL Omnipaque 350 given IV. PRIORS: None. FINDINGS: There is diffuse concentric wall thickening throughout the colon. In this distribution, findings are most typical of C difficile colitis. Crohn's disease would be less likely. No evidence for localized perforation or diverticulitis is seen. The small bowel is mildly distended but no evidence for transition zone is seen. Findings suggest mild ileus. There is low-density free fluid present in the abdomen and pelvis, around the liver, spleen, and interspersed among bowel loops. Within the abdomen, the liver, spleen, pancreas, gallbladder, adrenal glands, and kidneys are unremarkable. No evidence for retroperitoneal or pelvic lymphadenopathy is seen. No soft tissue mass, fluid collection, inflammatory change, or free air is seen within the abdomen or pelvis. The appendix is normal. Within the pelvis, the bladder is unremarkable. The prostate is normal. No evidence for mass or lymphadenopathy is seen in the pelvis. Images through the upper abdomen include the lung bases which are expanded and clear. The distal esophagus demonstrates diffuse concentric wall thickening consistent with esophagitis. Bony structures show an intramedullary jose david and screw in the proximal left femur. IMPRESSION: 1. Diffuse wall thickening throughout the entire colon. Findings are most typical C difficile colitis 2. Distention of small bowel, probably due to mild ileus. 3. Specific ascites throughout the abdomen and pelvis 4. concentric wall thickening of the distal esophagus suggesting esophagitis
--- NOTE | 2017-04-24 22:12 | Cat Scan Report ---
FINAL REPORT EXAM: CT ANGIO CHEST HISTORY: chest pain TECHNIQUE: Enhanced CT of the chest at 1.25 mm axial intervals following a pulmonary embolism protocol. Coronal and sagittal imaging were also obtained. Coronal oblique MIP projections were obtained. Contrast: 100 ml of Omnipaque 350 given IV. PRIORS: CT chest 10/12/2016 FINDINGS: There is no evidence for pulmonary embolism in the main pulmonary artery, right and left pulmonary arteries or their major distributions. However, CT does not exclude distal pulmonary emboli. There is diffuse concentric wall thickening of the distal half of the esophagus consistent with esophagitis. The wall measures up to 9.4 mm in thickness in the distal aspect (axial image 76). Otherwise, the lung parenchyma are expanded and clear with no evidence for parenchymal nodules, infiltrates, congestion, or pleural effusion. There is no evidence for mediastinal, hilar, or axillary adenopathy. Cardiovascular structures are within normal limits. No evidence for ventricular chamber enlargement is seen. Images through the lung bases include the upper abdomen which show no abnormalities of the visualized abdominal viscera. Bony structures demonstrate anterior wedging of T8 and T11 with mild endplate narrowing superiorly at T11. These are stable and remote. IMPRESSION: No evidence for pulmonary embolism. Diffuse concentric wall thickening of the distal half the esophagus suggesting esophagitis
--- NOTE | 2017-04-24 22:54 | History and Physical Report ---
History of Present Illness Date of examination: 04/24/17 Chief complaint: Chest pain and elevated blood sugar History of present illness: The patient is a 31-year-old male presented with chief complaint of hyperglycemia. The patient states since yesterday his glucose is elevated. Yesterday he noticed his blood sugars in the 400s. Today the patient states his glucometer read "high." The patient called EMS and was found to be hyperglycemic at 308. The patient states today he is also pain across his entire chest that is sharp when he takes a deep breath in. The patient admits to midepigastric/right upper quadrant abdominal pain as well. The patient states he feels dizzy when attempting to walk at times. Patient denies cough or fever. In the ER his troponin was mildly elevated cardiology was called and they recommended admission for turning his troponin no intervention needed do not recommend heparin drip they determined that the elevated troponin is most likely due to his acidotic state. PAST MEDICAL HISTORY: diabetes, CAD, MRSA PAST SURGICAL HISTORY:None FAMILY HISTORY:Diabetes, CAD SOCIAL HISTORY:Denies alcohol, tobacco, drugs Medications and Allergies Allergies Allergy/AdvReac Type Severity Reaction Status Date / Time codeine Allergy Hives Verified 04/24/17 18:15 ondansetron HCl [From Zofran] Allergy Hives Verified 04/24/17 18:15 hydrocodone bitartrate AdvReac Headache Verified 04/24/17 18:15 [From Lortab] Home Medications Medication Instructions Recorded Confirmed Last Taken Type Insulin NPH/Regular [NovoLIN 70/30] 10 unit SUB-Q QPMDIAB #30 units 04/01/17 Unknown Rx Insulin NPH/Regular [NovoLIN 70/30] 15 unit SUB-Q QAMDIAB #30 units 04/01/17 Unknown Rx Review of Systems All systems: negative (all 14 systems reviewed and found to be negative except as mentioned in HPI) Exam - Physical Exam Narrative exam: General: the patient is awake alert oriented to time place and person. no evidence of acute distress HEENT: Head is atraumatic normocephalic,. Pupils equal round reactive to light and accommodation, extraocular movements intact. Oral mucosa moist. Oropharynx clear. No pharyngeal erythema or tonsillar exudate. Neck: Supple no JVD no thyromegaly or lymphadenopathy. Heart: Regular rate and rhythm no murmurs or gallops. S1 and S2 normal. PMI not displaced. Lungs: Clear to auscultation bilaterally. No rales rhonchi wheezing. Nonlabored breathing. Normal chest wall expansion. Abdomen: Soft, nondistended, and nontender. Normoactive bowel sounds. No hepatosplenomegaly. No abdominal masses or bruit appreciated. Extremities: No cyanosis/clubbing/ edema. Musculoskeletal: Normal range of movement all joints. No obvious deformity or tenderness to palpation. Normal muscle tone. Back: Normal alignment. No step-off. No midline or paraspinal tenderness. No CVA tenderness. Neurological: Grossly intact and nonfocal. No cerebellar signs. Cranial nerves II-12 grossly intact. Strength 5 out of 5 all 4 extremities. Sensations grossly intact. Skin: Warm and dry no rashes or bruises. Psychiatric: Normal mood. Appropriate affect and good insight and judgment. Vascular system: No lymphadenopathy. Distal pulses 2+ bilaterally. - Constitutional Vitals: Temp Pulse Resp BP Pulse Ox 97.6 F 94 H 12 99/64 98 04/24/17 18:39 04/24/17 18:39 04/24/17 18:42 04/24/17 18:39 04/24/17 18:42 Results - Labs CBC & Chem 7: 04/24/17 18:58 04/24/17 18:58 Labs: Laboratory Last Values WBC 6.0 K/mm3 (4.5-11.0) 04/24/17 18:58 RBC 3.65 M/mm3 (3.65-5.03) 04/24/17 18:58 Hgb 10.5 gm/dl (11.8-15.2) L 04/24/17 18:58 Hct 30.3 % (35.5-45.6) L 18 18:58 MCV 83 fl (84-94) L 18 18:58 MCH 29 pg (28-32) 04/24/17 18:58 MCHC 35 % (32-34) H 04/24/17 18:58 RDW 16.3 % (13.2-15.2) H 18 18:58 Plt Count 325 K/mm3 (140-440) 04/24/17 18:58 Lymph % (Auto) 20.8 % (13.4-35.0) 04/24/17 18:58 [place] % (Auto) 12.0 % (0.0-7.3) H 04/24/17 18:58 Eos % (Auto) 1.4 % (0.0-4.3) 04/24/17 18:58 Baso % (Auto) 0.7 % (0.0-1.8) 04/24/17 18:58 Lymph # 1.2 K/mm3 (1.2-5.4) 04/24/17 18:58 [place] # 0.7 K/mm3 (0.0-0.8) 04/24/17 18:58 Eos # 0.1 K/mm3 (0.0-0.4) 04/24/17 18:58 Baso # 0.0 K/mm3 (0.0-0.1) 04/24/17 18:58 Seg Neutrophils % 65.1 % (40.0-70.0) 04/24/17 18:58 Seg Neutrophils # 3.9 K/mm3 (1.8-7.7) 04/24/17 18:58 VBG pH 7.290 (7.320-7.420) L 04/24/17 18:58 Sodium 138 mmol/L (137-145) 04/24/17 18:58 Potassium 3.1 mmol/L (3.6-5.0) L 04/24/17 18:58 Chloride 104.6 mmol/L (98-107) 04/24/17 18:58 Carbon Dioxide 14 mmol/L (22-30) L 04/24/17 18:58 Anion Gap 23 mmol/L 04/24/17 18:58 BUN 47 mg/dL (9-20) H 04/24/17 18:58 Creatinine 1.3 mg/dL (0.8-1.5) 04/24/17 18:58 Estimated GFR > 60 ml/min 04/24/17 18:58 BUN/Creatinine Ratio 36 % 04/24/17 18:58 Glucose 104 mg/dL (75-100) H 04/24/17 18:58 POC Glucose 138 (70-105) H 04/24/17 18:28 Calcium 9.8 mg/dL (8.4-10.2) 04/24/17 18:58 Total Bilirubin 0.50 mg/dL (0.1-1.2) 04/24/17 18:58 AST 12 units/L (5-40) 04/24/17 18:58 ALT 12 units/L (7-56) 04/24/17 18:58 Alkaline Phosphatase 211 units/L (35-129) H 04/24/17 18:58 Total Creatine Kinase 17 units/L (55-170) L 04/24/17 18:58 CK-MB (CK-2) 5.5 ng/mL (0.0-4.0) H 04/24/17 18:58 CK-MB (CK-2) Rel Index 32.3 (0-4) H 04/24/17 18:58 Troponin T 0.050 ng/mL (0.00-0.029) H 04/24/17 18:58 Total Protein 6.6 g/dL (6.3-8.2) 04/24/17 18:58 Albumin 3.8 g/dL (3.9-5) L 04/24/17 18:58 Albumin/Globulin Ratio 1.4 % 04/24/17 18:58 Triglycerides 221 mg/dL (2-149) H 04/24/17 18:58 Cholesterol 151 mg/dL (50-199) 04/24/17 18:58 LDL Cholesterol Direct 42 mg/dL (50-130) L 04/24/17 18:58 HDL Cholesterol 65 mg/dL (40-59) H 04/24/17 18:58 Cholesterol/HDL Ratio 2.32 % 04/24/17 18:58 Lipase 1261 units/L (13-60) H 04/24/17 18:58 Urine Color Yellow (Yellow) 04/24/17 18:15 Urine Turbidity Clear (Clear) 04/24/17 18:15 Urine pH 5.0 (5.0-7.0) 04/24/17 18:15 Ur Specific [place] 1.018 (1.003-1.030) 04/24/17 18:15 Urine Protein 30 mg/dl mg/dL (Negative) 04/24/17 18:15 Urine Glucose (UA) >=500 mg/dL (Negative) 04/24/17 18:15 Urine Ketones 20 mg/dL (Negative) 04/24/17 18:15 Urine Blood Sm (Negative) 04/24/17 18:15 Urine Nitrite Neg (Negative) 04/24/17 18:15 Urine Bilirubin Neg (Negative) 04/24/17 18:15 Urine Urobilinogen < 2.0 mg/dL (<2.0) 04/24/17 18:15 Ur Leukocyte Esterase Neg (Negative) 04/24/17 18:15 Urine WBC (Auto) 2.0 /HPF (0.0-6.0) 04/24/17 18:15 Urine RBC (Auto) 3.0 /HPF (0.0-6.0) 04/24/17 18:15 U Epithel Cells (Auto) < 1.0 /HPF (0-13.0) 04/24/17 18:15 Urine Bacteria (Auto) 1+ /HPF (Negative) 04/24/17 18:15 Amorphous Crystals Few 04/24/17 18:15 Urine Mucus Few /HPF 04/24/17 18:15 - Imaging and Cardiology Imaging and Cardiology: EKG shows normal sinus rhythm negative for acute ischemia or other arrhythmia CT ABDOMEN PELVIS W CON 1. Diffuse wall thickening throughout the entire colon. Findings are most typical C difficile colitis 2. Distention of small bowel, probably due to mild ileus. 3. Specific ascites throughout the abdomen and pelvis 4. concentric wall thickening of the distal esophagus suggesting esophagitis CT ANGIO CHEST No evidence for pulmonary embolism. Diffuse concentric wall thickening of the distal half the esophagus suggesting esophagitis Assessment and Plan Assessment and plan: Assessment and plan - * Chest pain - rule out acute coronary syndrome * Elevated troponin isn't reporting likely secondary to acidemia * DKA with a pH of 7.2 * Acute pancreatitis * Anemia of chronic disease H&H stable at baseline * Hypokalemia Plan - Admit the patient to telemetry floor Chest pain protocol. Serial cardiac enzymes Consult cardiology in a.m. if needed or indicated Echocardiogram Monitor blood sugars with Accu-Cheks every before meals and daily at bedtime and cover with sliding scale insulin Check hemoglobin A1c Aggressive IV fluids, nothing by mouth when necessary antiemetics and analgesics Replace potassium and monitor with a.m. labs Monitor CBC and electrolytes Replace electrolytes when necessary as per protocol DVT GI prophylaxis as ordered monitor and follow the patient closely VTE prophylaxis?: Chemical, Mechanical Plan of care discussed with patient/family: Yes
[2017-04-24] MEDS ORDERED: SODIUM CHLORIDE FLUSH SYRINGE 10 ML IV PRN (23:02)
[2017-04-24] MEDS ORDERED: DULCOLAX PR PRN (23:02)
[2017-04-24] MEDS ORDERED: PROVENTIL IH PRN (23:02)
[2017-04-24] MEDS ORDERED: AMBIEN PO PRN (23:02)
[2017-04-24] MEDS ORDERED: NITROSTAT SL PRN (23:02)
[2017-04-24] MEDS ORDERED: MILK OF MAGNESIA PO PRN (23:02)
[2017-04-24] MEDS ORDERED: TYLENOL PO PRN (23:02)
[2017-04-24] MEDS ORDERED: ZOFRAN IV PRN (23:02)
[2017-04-24] MEDS ORDERED: D50W (25GM) Syringe IV PRN (23:02)
[2017-04-24 23:28] LABS: Basophils % (Auto) 0.7 % (0.0-1.8); Eosinophils # (Auto) 0.1 K/mm3 (0.0-0.4); Eosinophils % (Auto) 2.5 % (0.0-4.3); Hematocrit 27.4 % (35.5-45.6); Hemoglobin 9.4 gm/dl (11.8-15.2); Lymphocytes # (Auto) 0.9 K/mm3 (1.2-5.4); Lymphocytes % (Auto) 16.5 % (13.4-35.0); Mean Corpuscular HGB Conc 35 % (32-34); Mean Corpuscular Hemoglobin 29 pg (28-32); Mean Corpuscular Volume 83 fl (84-94); Monocytes # (Auto) 0.7 K/mm3 (0.0-0.8); Monocytes % (Auto) 12.6 % (0.0-7.3); Platelet Count 280 K/mm3 (140-440); Red Blood Count 3.31 M/mm3 (3.65-5.03); Red Cell Distribution Width 16.7 % (13.2-15.2)
[2017-04-24 23:38] LABS: BUN/Creatinine Ratio 35; Blood Urea Nitrogen 39 mg/dL (9-20); Calcium 8.8 mg/dL (8.4-10.2); Hemolysis Index 0
[2017-04-25] MEDS: MORPHINE IV PRN ×3 (00:47→09:38)
[2017-04-25] MEDS ORDERED: MORPHINE ONE (00:49)
[2017-04-25] MEDS ORDERED: NOVOLOG SUB-Q ONE (01:18)
[2017-04-25] MEDS: NS/KCL 20MEQ 20 MEQ/1,000 ML BAG IV SCH ×2 (04:14→10:58)
[2017-04-25 08:25] LABS: Basophils % (Auto) 0.4 % (0.0-1.8); Eosinophils # (Auto) 0.3 K/mm3 (0.0-0.4); Eosinophils % (Auto) 5.5 % (0.0-4.3); Hematocrit 27.1 % (35.5-45.6); Hemoglobin 9.3 gm/dl (11.8-15.2); Lymphocytes # (Auto) 0.8 K/mm3 (1.2-5.4); Lymphocytes % (Auto) 15.5 % (13.4-35.0); Mean Corpuscular HGB Conc 34 % (32-34); Mean Corpuscular Hemoglobin 29 pg (28-32); Mean Corpuscular Volume 84 fl (84-94); Monocytes # (Auto) 0.6 K/mm3 (0.0-0.8); Monocytes % (Auto) 11.8 % (0.0-7.3); Platelet Count 252 K/mm3 (140-440); Red Blood Count 3.23 M/mm3 (3.65-5.03); Red Cell Distribution Width 16.6 % (13.2-15.2)
[2017-04-25 08:47] LABS: Creatine Kinase MB 4.7 ng/mL (0.0-4.0)
[2017-04-25 08:50] LABS: Alanine Aminotransferase 11 units/L (7-56); Albumin 3.4 g/dL (3.9-5); BUN/Creatinine Ratio 33; Blood Urea Nitrogen 33 mg/dL (9-20); Calcium 8.9 mg/dL (8.4-10.2); Hemolysis Index 5
[2017-04-25 09:02] VITALS: BP 113/74
[2017-04-25] MEDS ORDERED: D50W (25GM) Syringe IV PRN (09:50)
[2017-04-25] MEDS: NOVOLOG SUB-Q SCH ×2 (10:00→14:06)
[2017-04-25] MEDS ORDERED: LOVENOX SUB-Q SCH (10:00)
[2017-04-25] MEDS ORDERED: ECOTRIN PO SCH (10:00)
[2017-04-25] MEDS ORDERED: PEPCID IV SCH (10:00)
--- NOTE | 2017-04-25 12:07 | Progress Note ---
Assessment and Plan Assessment and plan: Patient is 31 yo man with h/o type 1 DM with multiple hospitalizations for DKA due to noncompliance, mrsa skin infection and recent MSSA carbuncles x 3 s/p I-n -D who presented to ED [facility] with hyperglycemia -Chest pains, atypical, resolved -Uncontrolled DM with DKA resolved, corrected AG 16.6 -Troponin level negative, unlikely ACS, as patient had identical troponin level of 0.5, october 11, 2016, he had a negative stress test at that time. History Interval history: Patient seen and examined. No new issues. He wants to go home. Hospitalist Physical - Constitutional Vitals: Temp Pulse Resp BP Pulse Ox 98.6 F 102 H 16 113/74 98 04/25/17 07:47 04/25/17 07:47 04/25/17 09:38 04/25/17 07:47 04/25/17 07:47 General appearance: Present: no acute distress - EENT Eyes: Present: PERRL, EOM intact ENT: hearing intact, clear oral mucosa, dentition normal - Neck Neck: Present: supple, normal ROM - Respiratory Respiratory effort: normal Respiratory: bilateral: CTA - Cardiovascular Rhythm: regular Heart Sounds: Present: S1 & S2 - Extremities Extremities: no ischemia, pulses intact Peripheral Pulses: within normal limits - Abdominal General gastrointestinal: soft, non-tender, non-distended, normal bowel sounds - Integumentary Integumentary: Present: clear, warm - Psychiatric Psychiatric: appropriate mood/affect - Neurologic Neurologic: CNII-XII intact Results - Labs CBC & Chem 7: 04/25/17 07:58 04/25/17 07:58 Labs: Laboratory Last Values WBC 5.4 K/mm3 (4.5-11.0) 04/25/17 07:58 RBC 3.23 M/mm3 (3.65-5.03) L 04/25/17 07:58 Hgb 9.3 gm/dl (11.8-15.2) L 04/25/17 07:58 Hct 27.1 % (35.5-45.6) L 04/25/17 07:58 MCV 84 fl (84-94) 04/25/17 07:58 MCH 29 pg (28-32) 04/25/17 07:58 MCHC 34 % (32-34) 04/25/17 07:58 RDW 16.6 % (13.2-15.2) H 04/25/17 07:58 Plt Count 252 K/mm3 (140-440) 04/25/17 07:58 Lymph % (Auto) 15.5 % (13.4-35.0) 04/25/17 07:58 [place] % (Auto) 11.8 % (0.0-7.3) H 04/25/17 07:58 Eos % (Auto) 5.5 % (0.0-4.3) H 04/25/17 07:58 Baso % (Auto) 0.4 % (0.0-1.8) 04/25/17 07:58 Lymph # 0.8 K/mm3 (1.2-5.4) L 04/25/17 07:58 [place] # 0.6 K/mm3 (0.0-0.8) 04/25/17 07:58 Eos # 0.3 K/mm3 (0.0-0.4) 04/25/17 07:58 Baso # 0.0 K/mm3 (0.0-0.1) 04/25/17 07:58 Seg Neutrophils % 66.8 % (40.0-70.0) 04/25/17 07:58 Seg Neutrophils # 3.6 K/mm3 (1.8-7.7) 04/25/17 07:58 VBG pH 7.290 (7.320-7.420) L 04/24/17 18:58 Sodium 136 mmol/L (137-145) L 04/25/17 07:58 Potassium 4.4 mmol/L (3.6-5.0) 04/25/17 07:58 Chloride 105.4 mmol/L (98-107) 04/25/17 07:58 Carbon Dioxide 14 mmol/L (22-30) L 04/25/17 07:58 Anion Gap 21 mmol/L 04/25/17 07:58 BUN 33 mg/dL (9-20) H 04/25/17 07:58 Creatinine 1.0 mg/dL (0.8-1.5) 04/25/17 07:58 Estimated GFR > 60 ml/min 04/25/17 07:58 BUN/Creatinine Ratio 33 % 04/25/17 07:58 Glucose 403 mg/dL (75-100) H 04/25/17 07:58 POC Glucose 395 (70-105) H 04/25/17 07:52 Calcium 8.9 mg/dL (8.4-10.2) 04/25/17 07:58 Total Bilirubin 0.50 mg/dL (0.1-1.2) 04/25/17 07:58 AST 10 units/L (5-40) 04/25/17 07:58 ALT 11 units/L (7-56) 04/25/17 07:58 Alkaline Phosphatase 190 units/L (35-129) H 04/25/17 07:58 Total Creatine Kinase 16 units/L (55-170) L 04/25/17 07:58 CK-MB (CK-2) 4.7 ng/mL (0.0-4.0) H 04/25/17 07:58 CK-MB (CK-2) Rel Index 29.3 (0-4) H 04/25/17 07:58 Troponin T 0.028 ng/mL (0.00-0.029) 04/25/17 07:58 Total Protein 5.9 g/dL (6.3-8.2) L 04/25/17 07:58 Albumin 3.4 g/dL (3.9-5) L 04/25/17 07:58 Albumin/Globulin Ratio 1.4 % 04/25/17 07:58 Triglycerides 221 mg/dL (2-149) H 04/24/17 18:58 Cholesterol 151 mg/dL (50-199) 04/24/17 18:58 LDL Cholesterol Direct 42 mg/dL (50-130) L 04/24/17 18:58 HDL Cholesterol 65 mg/dL (40-59) H 04/24/17 18:58 Cholesterol/HDL Ratio 2.32 % 04/24/17 18:58 Lipase 1261 units/L (13-60) H 04/24/17 18:58 Urine Color Yellow (Yellow) 04/24/17 18:15 Urine Turbidity Clear (Clear) 04/24/17 18:15 Urine pH 5.0 (5.0-7.0) 04/24/17 18:15 Ur Specific [place] 1.018 (1.003-1.030) 04/24/17 18:15 Urine Protein 30 mg/dl mg/dL (Negative) 04/24/17 18:15 Urine Glucose (UA) >=500 mg/dL (Negative) 04/24/17 18:15 Urine Ketones 20 mg/dL (Negative) 04/24/17 18:15 Urine Blood Sm (Negative) 04/24/17 18:15 Urine Nitrite Neg (Negative) 04/24/17 18:15 Urine Bilirubin Neg (Negative) 04/24/17 18:15 Urine Urobilinogen < 2.0 mg/dL (<2.0) 04/24/17 18:15 Ur Leukocyte Esterase Neg (Negative) 04/24/17 18:15 Urine WBC (Auto) 2.0 /HPF (0.0-6.0) 04/24/17 18:15 Urine RBC (Auto) 3.0 /HPF (0.0-6.0) 04/24/17 18:15 U Epithel Cells (Auto) < 1.0 /HPF (0-13.0) 04/24/17 18:15 Urine Bacteria (Auto) 1+ /HPF (Negative) 04/24/17 18:15 Amorphous Crystals Few 04/24/17 18:15 Urine Mucus Few /HPF 04/24/17 18:15
--- NOTE | 2017-04-25 12:29 | Discharge Summary ---
Providers - Providers Date of Admission: 04/24/17 23:02 Date of discharge: 04/25/17 Attending physician: SEBASTIAN SAMUEL 04/25/17 03:16 Consult to Wound/ET Nurse [CONS] Routine Reason For Exam: wound eval 04/25/17 09:50 Consult to Dietitian/Nutrition [CONS] Routine Physician Instructions: Reason For Exam: Reason for Consult: Diet education Primary care physician: [employer] Hospitalization Condition: Stable Hospital course: Patient is 31 yo man with h/o type 1 DM with multiple hospitalizations for DKA due to noncompliance, mrsa skin infection and recent MSSA carbuncles x 3 s/p I-n -D who presented to ED [facility] with hyperglycemia -Chest pains, atypical, resolved -Uncontrolled DM with DKA resolved, corrected AG 16.6 -Troponin level negative, unlikely ACS, as patient had identical troponin level of 0.5, october 11, 2016, he had a negative stress test at that time. Disposition: DC-01 TO HOME OR SELFCARE Time spent for discharge: 35 min Core Measure Documentation - Palliative Care Palliative Care/ Comfort Measures: Not Applicable - Core Measures Any of the following diagnoses?: none - VTE Discharge Requirements Deep Vein Thrombosis/Pulmonary Embolism Present on Admission: No Has pt received <5 days of overlap therapy or INR<2.0: No Anticoagulant overlap therapy prescribed at discharge: No Contraindication No Overlap Therapy order at DC: Not Indicated Exam - Constitutional Vitals: Temp Pulse Resp BP Pulse Ox 98.6 F 102 H 17 113/74 98 04/25/17 07:47 04/25/17 10:00 04/25/17 10:00 04/25/17 07:47 04/25/17 07:47 General appearance: Present: no acute distress - EENT Eyes: Present: PERRL, EOM intact ENT: hearing intact, clear oral mucosa - Neck Neck: Present: supple, normal ROM - Respiratory Respiratory effort: normal Respiratory: bilateral: CTA - Cardiovascular Rhythm: regular Heart Sounds: Present: S1 & S2 - Extremities Extremities: no ischemia, pulses intact - Abdominal General gastrointestinal: Present: soft, non-tender, non-distended, normal bowel sounds - Musculoskeletal Musculoskeletal: strength equal bilaterally - Psychiatric Psychiatric: appropriate mood/affect - Neurologic Neurologic: CNII-XII intact Plan Activity: other (no strenous activity) Diet: diabetic Special Instructions: record blood sugar diary Follow up with: PRIMARY CARE, [Primary Care Provider] - 3-5 Days Prescriptions: Insulin Aspart [NovoLOG Flexpen] 4 units SQ AC #1 pen
[2017-04-25] MEDS ORDERED: NOVOLOG SUB-Q SCH ×2 (16:30)
== END 2017-04-25 15:08 | disposition home or self-care (01) ==
LOC: ED 18:10 → 4A 23:02
PROVIDERS: ADMIT Internal Medicine Geriatric Medicine; ATTEND Internal Medicine
DX: E10.10 Type 1 diabetes mellitus with ketoacidosis without coma (principal); E87.6 Hypokalemia; D63.8 Anemia in other chronic diseases classified elsewhere; K85.90 Acute pancreatitis without necrosis or infection, unspecified; I10 Essential (primary) hypertension; I25.10 Atherosclerotic heart disease of native coronary artery without angina pectoris; R07.89 Other chest pain; R79.89 Other specified abnormal findings of blood chemistry; Z86.14 Personal history of Methicillin resistant Staphylococcus aureus infection
CPT/HCPCS: 36415; 71275; 74177; 80048; 80053; 80061; 81001; 82550; 82553; 82805; 82962; 83690; 84484; 85025; 93005; 93010; 93306; 96361; 96365; 96366; 96372; 96375; 96376; 99285; G0378; J1650; J2270; J2405; J3010; J7030; Q9967; 96374; J1815

== ENCOUNTER 2017-06-06 00:07 | Inpatient (IN) | payer SELFPAY ==
[2017-06-06 00:50] LABS: Basophils # (Auto) 0.1 K/mm3 (0.0-0.1); Basophils % (Auto) 1.2 % (0.0-1.8); Eosinophils # (Auto) 0.2 K/mm3 (0.0-0.4); Eosinophils % (Auto) 2.3 % (0.0-4.3); Hematocrit 31.6 % (35.5-45.6); Hemoglobin 10.7 gm/dl (11.8-15.2); Lymphocytes # (Auto) 1.5 K/mm3 (1.2-5.4); Lymphocytes % (Auto) 18.8 % (13.4-35.0); Mean Corpuscular HGB Conc 34 % (32-34); Mean Corpuscular Hemoglobin 30 pg (28-32); Mean Corpuscular Volume 88 fl (84-94); Monocytes # (Auto) 0.7 K/mm3 (0.0-0.8); Platelet Count 314 K/mm3 (140-440); Red Blood Count 3.58 M/mm3 (3.65-5.03); Red Cell Distribution Width 15.2 % (13.2-15.2)
[2017-06-06 01:01] LABS: BUN/Creatinine Ratio 22; Blood Urea Nitrogen 35 mg/dL (9-20); Calcium 9.6 mg/dL (8.4-10.2); Hemolysis Index 14
[2017-06-06] MEDS ORDERED: NACL 0.9% 1000 ML 1,000 ML ONE ×2 (01:42→05:07)
[2017-06-06] MEDS ORDERED: NACL 0.9% 1000 ML 1,000 ML IV ONE ×2 (01:48→03:10)
[2017-06-06 01:50] LABS: Chol/HDL Ratio 2.95 %; HDL Cholesterol 81 mg/dL (40-59); LDL Cholesterol,Direct TNR mg/dL (50-130)
--- NOTE | 2017-06-06 02:27 | Cat Scan Report ---
FINAL REPORT EXAM: CT HEAD/BRAIN WO CON HISTORY: Left head laceration syncopal epidose fall TECHNIQUE: CT evaluation was performed of the head without the use of intravenous contrast administration. PRIORS: None. FINDINGS: Normal density, size and configuration of the brain parenchyma and CSF containing spaces. No evidence of acute hemorrhage. no mass effect, edema or shift of midline structures. Visualized paranasal sinuses are clear. Small left mastoid air cell effusion. Calvarium is normal. Mild left frontal forehead soft tissue swelling. IMPRESSION: No CT evidence of acute intracranial process. Mild left forehead soft tissue swelling, no subjacent fracture.
[2017-06-06] MEDS ORDERED: MORPHINE IV ONE (03:06)
[2017-06-06] MEDS ORDERED: BABY ASPIRIN PO ONE (03:12)
[2017-06-06] MEDS ORDERED: PLAVIX PO ONE (03:13)
[2017-06-06] MEDS ORDERED: HEPARIN IV ONE (03:15)
--- NOTE | 2017-06-06 03:18 | Emergency Department Report ---
ED Chest Pain HPI - General Chief Complaint: Chest Pain Stated Complaint: CHEST PAIN Time Seen by Provider: 06/06/17 01:56 Source: patient, EMS Mode of arrival: Stretcher Limitations: Other - History of Present Illness Initial Comments: Patient says since about 10 AM yesterday and having chest pain across his chest of moderate to severe intensity and nonradiating with no aggravating or relieving factor. Patient said he also felt dizzy and actually passed out. He hit his head MD Complaint: chest pain Onset/Timin (day) -: Gradual Time: 10:00 Onset: during rest Pain Location: substernal Pain Radiation: none Severity: moderate Severity scale (0 -10): 6 Quality: aching Consistency: constant Improves With: nothing Worsens With: nothing Other Symptoms: other (dizziness) Treatments Prior to Arrival: none - Related Data Previous Rx's Medication Instructions Recorded Last Taken Type Insulin NPH/Regular [NovoLIN 70/30] 10 unit SUB-Q QPMDIAB #30 units 04/01/17 Unknown Rx Insulin NPH/Regular [NovoLIN 70/30] 15 unit SUB-Q QAMDIAB #30 units 04/01/17 Unknown Rx Insulin Aspart [NovoLOG Flexpen] 4 units SQ AC #1 pen 04/25/17 Unknown Rx Allergies Allergy/AdvReac Type Severity Reaction Status Date / Time codeine Allergy Hives Verified 04/24/17 18:15 ondansetron HCl [From Zofran] Allergy Hives Verified 04/24/17 18:15 hydrocodone bitartrate AdvReac Headache Verified 04/24/17 18:15 [From Lortab] Heart Score - HEART Score History: Moderately suspicious EKG: Non-specific Age: < 45 Risk factors: 1-2 risk factors Troponin: > 3x normal limit HEART Score: 5 ED Review of Systems ROS: Stated complaint: CHEST PAIN Other details as noted in HPI Comment: All other systems reviewed and negative ED Past Medical Hx - Past Medical History Previous Medical History?: Yes Hx Hypertension: Yes Hx Congestive Heart Failure: No Hx Diabetes: Yes Hx Asthma: No Hx COPD: No Hx HIV: (States he does not have HIV) Additional medical history: staph infection, CHEST DEFORMITY - Surgical History Additional Surgical History: wound debridement (staph infection)--NECK AND BACK - Social History Smoking Status: Unknown if ever smoked Substance Use Type: None - Medications Home Medications: Home Medications Medication Instructions Recorded Confirmed Last Taken Type Insulin NPH/Regular [NovoLIN 70/30] 10 unit SUB-Q QPMDIAB #30 units 04/01/17 Unknown Rx Insulin NPH/Regular [NovoLIN 70/30] 15 unit SUB-Q QAMDIAB #30 units 04/01/17 Unknown Rx Insulin Aspart [NovoLOG Flexpen] 4 units SQ AC #1 pen 04/25/17 Unknown Rx ED Physical Exam - General Limitations: Other General appearance: alert, in distress (mild distress due to chest pain) - Head Head exam: Present: atraumatic, normocephalic - Eye Eye exam: Present: normal appearance - ENT ENT exam: Present: mucous membranes moist - Neck Neck exam: Present: normal inspection - Respiratory Respiratory exam: Present: normal lung sounds bilaterally. Absent: respiratory distress - Cardiovascular Cardiovascular Exam: Present: regular rate, normal rhythm. Absent: systolic murmur, diastolic murmur, rubs, gallop - GI/Abdominal GI/Abdominal exam: Present: soft, normal bowel sounds. Absent: distended - Rectal Rectal exam: Present: deferred - Extremities Exam Extremities exam: Present: normal inspection - Back Exam Back exam: Present: normal inspection - Neurological Exam Neurological exam: Present: alert, oriented X3 - Psychiatric Psychiatric exam: Present: normal affect, normal mood - Skin Skin exam: Present: warm, dry, intact, normal color. Absent: rash ED Course Vital Signs 06/06/17 06/06/17 06/06/17 00:27 01:27 01:30 Temperature 98.3 F Pulse Rate 102 H 98 H Respiratory 20 20 20 Rate Blood Pressure 76/42 Blood Pressure 88/50 [Left] O2 Sat by Pulse 99 99 99 Oximetry AICHA score - Aicha Score Age > 65: (0) No Aspirin use within the Past 7 Days: (0) No 3 or more CAD Risk Factors: (0) No 2 or more Angina events in past 24 hrs: (0) No Known CAD with more than 50% Stenosis: (0) No Elevated Cardiac Markers: (0) No ST Deviation Greater than 0.5mm: (0) No AICHA Score: 0 ED Medical Decision Making - Lab Data Result diagrams: 06/06/17 00:38 06/06/17 00:38 - EKG Data -: EKG Interpreted by Me EKG shows normal: sinus rhythm (rate of 103), axis (normal), intervals (normal) , QRS complexes (normal), ST-T waves (normal. ) - Medical Decision Making i SPOKE TO the cathead worker longshore equipment operator- Dr Khan and he agreed with giving the patient aspirin and Plavix and heparin drip. I spoke to Dr. Emery and she has agreed to accept the patient for admission Critical care attestation.: If time is entered above; I have spent that time in minutes in the direct care of this critically ill patient, excluding procedure time. ED Disposition Clinical Impression: NSTEMI (non-ST elevated myocardial infarction), Acute kidney injury, Acute kidney injury (nontraumatic) Disposition: 09 OP ADMIT IP TO THIS HOSP Is pt being admited?: Yes Does the pt Need Aspirin: Yes Condition: Stable Referrals: ROMEL MEDRANO MD [Primary Care Provider] - 3-5 Days Time of Disposition: 03:38 Print Language: ISRAELI
[2017-06-06] MEDS: HEPARIN 25,000 UNIT in D5W 497.5 ML IV SCH ×2 (04:00→11:38)
[2017-06-06 04:07] LABS: INR 0.92 (0.87-1.13)
[2017-06-06 04:08] LABS: Partial Thromboplastin Time 23.5 Sec. (24.2-36.6)
[2017-06-06] MEDS ORDERED: SODIUM CHLORIDE FLUSH SYRINGE 10 ML IV PRN (04:21)
[2017-06-06] MEDS ORDERED: D50W (25GM) Syringe IV PRN (04:21)
[2017-06-06] MEDS ORDERED: TYLENOL PO PRN (04:21)
[2017-06-06] MEDS ORDERED: MS CONTIN ER PO PRN (04:25)
--- NOTE | 2017-06-06 04:31 | History and Physical Report ---
History of Present Illness Date of examination: 06/06/17 History of present illness: 31-year-old man with a history of diabetes, CAD, MRSA comes to the emergency room complaining of chest pain located across his chest which he describes as a dull pain, constant, intensity 8/10, no radiation, he cannot identify exacerbating or relieving factors. He denies nausea, vomiting, shortness breath , diaphoresis or palpitation. He stays compliant with his medications Review Of Systems: Constitutional: no weight loss Ears, eyes, nose, mouth and throat: no nasal congestion, no nasal discharge, no sinus pressure, blurry vision, diplopia Neck: No neck pain or rigidity. Cardiovascular: No palpitations Respiratory: No shortness of breath, cough Gastrointestinal: No abdominal pain, hematochezia Genitourinary : no dysuria, frequency , hematuria Musculoskeletal: no muscle ache Integumentary: no rash, no pruritis Neurological: no parathesias, focal weakness Endocrine: no cold or heat intolerance, no polyuria or polydipsia Hematologic/Lymphatic: no easy bruising, no easy bleeding, no gland swelling Allergic/Immunologic: no urticaria, no angioedema. PAST MEDICAL HISTORY: diabetes, CAD, MRSA PAST SURGICAL HISTORY:None FAMILY HISTORY:Diabetes, CAD SOCIAL HISTORY:Denies alcohol, tobacco, drugs Medications and Allergies Allergies Allergy/AdvReac Type Severity Reaction Status Date / Time codeine Allergy Hives Verified 04/24/17 18:15 ondansetron HCl [From Zofran] Allergy Hives Verified 04/24/17 18:15 hydrocodone bitartrate AdvReac Headache Verified 04/24/17 18:15 [From Lortab] Home Medications Medication Instructions Recorded Confirmed Last Taken Type Insulin NPH/Regular [NovoLIN 70/30] 10 unit SUB-Q QPMDIAB #30 units 04/01/17 Unknown Rx Insulin NPH/Regular [NovoLIN 70/30] 15 unit SUB-Q QAMDIAB #30 units 04/01/17 Unknown Rx Active Meds: Active Medications Heparin Sodium (Porcine) 25, (000 unit/ Dextrose) 500 mls @ 15.64 mls/hr IV TITR SHARATH; Protocol Exam - Physical Exam Narrative exam: Gen. appearance: Patient lying in bed, no apparent distress HEENT: Normocephalic, atraumatic, pupils equally round and reactive to light, extraocular movement intact, and no sclericterus,. No JVD or thyromegaly or nodule,neck supple, no carotid bruit ,mucous membranes moist, no exudate or erythema Heart: S1, S2, regular rate and rhythm Lungs: Clear to auscultation bilaterally, breathing comfortable Abdomen: Positive bowel sounds, nontender, nondistended, no organomegaly Extremity: No edema, cyanosis, clubbing Skin: No rash, nodules, warm, dry Neuro: Oriented 3, cranial nerves II-12 intact, speech is fluent, motor and sensory intact - Constitutional Vitals: Temp Pulse Resp BP Pulse Ox 98.3 F 94 H 20 99/65 100 06/06/17 00:27 06/06/17 02:30 06/06/17 02:30 06/06/17 02:30 06/06/17 02:30 Results - Labs CBC & Chem 7: 06/06/17 00:38 06/06/17 00:38 Labs: Abnormal lab results 06/06/17 06/06/17 06/06/17 Range/Units 00:38 00:38 03:13 RBC 3.58 L (3.65-5.03) M/mm3 Hgb 10.7 L (11.8-15.2) gm/dl Hct 31.6 L (35.5-45.6) % [place] % (Auto) 9.0 H (0.0-7.3) % APTT (24.2-36.6) Sec. Sodium 146 H (137-145) mmol/L Chloride 95.5 L (98-107) mmol/L Carbon Dioxide 20 L (22-30) mmol/L BUN 35 H (9-20) mg/dL Creatinine 1.6 H (0.8-1.5) mg/dL Glucose 113 H (75-100) mg/dL Troponin T 0.121 H* 0.070 H D (0.00-0.029) ng/mL Triglycerides 506 H (2-149) mg/dL Cholesterol 239 H (50-199) mg/dL HDL Cholesterol 81 H (40-59) mg/dL 06/06/17 Range/Units 03:48 RBC (3.65-5.03) M/mm3 Hgb (11.8-15.2) gm/dl Hct (35.5-45.6) % [place] % (Auto) (0.0-7.3) % APTT 23.5 L (24.2-36.6) Sec. Sodium (137-145) mmol/L Chloride (98-107) mmol/L Carbon Dioxide (22-30) mmol/L BUN (9-20) mg/dL Creatinine (0.8-1.5) mg/dL Glucose (75-100) mg/dL Troponin T (0.00-0.029) ng/mL Triglycerides (2-149) mg/dL Cholesterol (50-199) mg/dL HDL Cholesterol (40-59) mg/dL Assessment and Plan Assessment NSTMI Acute renal failure Coronary artery disease Diabetes Plan Admit to medicine Continue heparin drip, aspirin Hold beta hemant, AceI, blood pressure too low, acute renal failure Start IV fluids, monitor kidney function, consult cardiology Fingersticks and initiate insulin sliding scale, check cxr DVT prophylaxis
[2017-06-06 04:57] LABS: Creatine Kinase MB 5.1 ng/mL (0.0-4.0)
[2017-06-06] MEDS ORDERED: NACL 0.9% 1000 ML 1,000 ML IV SCH (05:00)
[2017-06-06] MEDS: HumuLIN R SUB-Q SCH ×3 (08:00→17:17)
--- NOTE | 2017-06-06 09:49 | XRay Report ---
ROUTINE CHEST, TWO VIEWS: HISTORY: chest pain. Compared to 02/21/17. The trachea, heart, mediastinum and lung melissa are unremarkable. Subtle left anterolateral nondisplaced rib fractures could be considered. Otherwise the bony structures are unremarkable. IMPRESSION: Questionable left rib fractures. Otherwise, unremarkable chest films.
[2017-06-06] MEDS ORDERED: SODIUM CHLORIDE FLUSH SYRINGE 10 ML IV SCH (10:00)
[2017-06-06] MEDS: ASPIRIN PO SCH ×2 (10:36→10:38)
[2017-06-06] MEDS ORDERED: PERCOCET 5/325 PO PRN (10:43)
[2017-06-06] MEDS ORDERED: ULTRAM PO PRN ×2 (11:00→11:33)
[2017-06-06 11:08] LABS: Creatine Kinase MB 6.9 ng/mL (0.0-4.0)
--- NOTE | 2017-06-06 14:50 | Consultation ---
History of Present Illness Consult date: 06/06/17 Medications and Allergies Allergies Allergy/AdvReac Type Severity Reaction Status Date / Time codeine Allergy Hives Verified 04/24/17 18:15 ondansetron HCl [From Zofran] Allergy Hives Verified 04/24/17 18:15 hydrocodone bitartrate AdvReac Headache Verified 04/24/17 18:15 [From Lortab] Home Medications Medication Instructions Recorded Confirmed Last Taken Type Insulin NPH/Regular [NovoLIN 70/30] 10 unit SUB-Q QPMDIAB #30 units 04/01/17 Unknown Rx Insulin NPH/Regular [NovoLIN 70/30] 15 unit SUB-Q QAMDIAB #30 units 04/01/17 Unknown Rx Active Meds: Active Medications Acetaminophen (Tylenol) 650 mg PO Q4H PRN PRN Reason: Pain MILD(1-3)/Fever >100.5/MCKEON Aspirin (Aspirin) 325 mg PO QDAY SHARATH Last Admin: 06/06/17 10:38 Dose: Not Given Dextrose (D50w (25gm) Syringe) 50 ml IV PRN PRN PRN Reason: Hypoglycemia Heparin Sodium (Porcine) 25, (000 unit/ Dextrose) 500 mls @ 15.64 mls/hr IV TITR SHARATH; Protocol Last Admin: 06/06/17 11:38 Dose: 15 units/kg/hr, 15.64 mls/hr Sodium Chloride (Nacl 0.9% 1000 Ml) 1,000 mls @ 125 mls/hr IV DIRECT SHARATH Insulin Human Regular (Humulin R) 0 units SUB-Q ACHS SHARATH; Protocol Last Admin: 06/06/17 11:41 Dose: 8 units Sodium Chloride (Sodium Chloride Flush Syringe 10 Ml) 10 ml IV BID SHARATH Last Admin: 06/06/17 10:38 Dose: 10 ml Sodium Chloride (Sodium Chloride Flush Syringe 10 Ml) 10 ml IV PRN PRN PRN Reason: LINE FLUSH Tramadol HCl (Ultram) 50 mg PO Q6H PRN PRN Reason: Pain, Moderate (4-6) Physical Examination Vital Signs Temp Pulse Resp BP Pulse Ox 98.3 F 102 H 20 76/42 99 06/06/17 00:27 06/06/17 00:27 06/06/17 00:27 06/06/17 00:27 06/06/17 00:27 Results 06/06/17 00:38 06/06/17 00:38 Cardiac Enzymes 06/06/17 06/06/17 Range/Units 04:34 10:18 CK-MB (CK-2) 5.1 H 6.9 H (0.0-4.0) ng/mL Coagulation 06/06/17 Range/Units 03:48 PT 12.8 (12.2-14.9) Sec. INR 0.92 (0.87-1.13) APTT 23.5 L (24.2-36.6) Sec. Lipids 06/06/17 Range/Units 00:38 Triglycerides 506 H (2-149) mg/dL Cholesterol 239 H (50-199) mg/dL HDL Cholesterol 81 H (40-59) mg/dL Cholesterol/HDL Ratio 2.95 % CBC 06/06/17 Range/Units 00:38 WBC 7.9 (4.5-11.0) K/mm3 RBC 3.58 L (3.65-5.03) M/mm3 Hgb 10.7 L (11.8-15.2) gm/dl Hct 31.6 L (35.5-45.6) % Plt Count 314 (140-440) K/mm3 Lymph # 1.5 (1.2-5.4) K/mm3 [place] # 0.7 (0.0-0.8) K/mm3 Eos # 0.2 (0.0-0.4) K/mm3 Baso # 0.1 (0.0-0.1) K/mm3 Comprehensive Metabolic Panel 06/06/17 Range/Units 00:38 Sodium 146 H (137-145) mmol/L Potassium 3.9 (3.6-5.0) mmol/L Chloride 95.5 L (98-107) mmol/L Carbon Dioxide 20 L (22-30) mmol/L BUN 35 H (9-20) mg/dL Creatinine 1.6 H (0.8-1.5) mg/dL Glucose 113 H (75-100) mg/dL Calcium 9.6 (8.4-10.2) mg/dL Assessment and Plan Detailed Cardiology consult - Dictated.
[2017-06-06] MEDS ORDERED: TRICOR PO SCH (16:00)
[2017-06-06 17:37] VITALS: BP 124/86
--- NOTE | 2017-06-06 21:58 | Event Note ---
Date: 06/06/17 pATIENT LEFT AMA
[2017-06-06] MEDS ORDERED: HEPARIN SUB-Q SCH (22:00)
== END 2017-06-06 20:19 | disposition left against medical advice (07) | DRG 281 ==
LOC: ED 00:07 → 4A 04:21
PROVIDERS: ADMIT Internal Medicine; ATTEND Internal Medicine
DX: I21.4 Non-ST elevation (NSTEMI) myocardial infarction (principal); I10 Essential (primary) hypertension; E11.9 Type 2 diabetes mellitus without complications; I25.10 Atherosclerotic heart disease of native coronary artery without angina pectoris; N17.9 Acute kidney failure, unspecified; Z88.5 Allergy status to narcotic agent; Z88.8 Allergy status to other drugs, medicaments and biological substances; Z79.4 Long term (current) use of insulin; Z83.3 Family history of diabetes mellitus; Z82.49 Family history of ischemic heart disease and other diseases of the circulatory system
CPT/HCPCS: 36415; 70450; 71046; 80048; 80061; 82550; 82553; 82962; 84484; 85025; 85520; 85610; 85730; 93005; 93010; 96361; 96374; J1644; J7030; J7060

== ENCOUNTER 2017-06-10 17:09 | Inpatient (IN) | payer OTHER ==
[2017-06-10] MEDS ORDERED: NACL 0.9% 1000 ML 1,000 ML IV ONE (18:11)
[2017-06-10] MEDS ORDERED: HumuLIN R IV ONE (18:15)
[2017-06-10 19:02] LABS: Mean Corpuscular HGB Conc 28 % (32-34); Mean Corpuscular Hemoglobin 30 pg (28-32); Mean Corpuscular Volume 105 fl (84-94); Platelet Count 482 K/mm3 (140-440); Red Blood Count 3.28 M/mm3 (3.65-5.03); Red Cell Distribution Width 15.8 % (13.2-15.2)
[2017-06-10 19:03] LABS: Hematocrit 34.5 % (35.5-45.6); Hemoglobin 9.7 gm/dl (11.8-15.2)
[2017-06-10 19:14] LABS: Alanine Aminotransferase 22 units/L (7-56); Albumin 2.9 g/dL (3.9-5); BUN/Creatinine Ratio 25; Blood Urea Nitrogen 47 mg/dL (9-20); Calcium 8.2 mg/dL (8.4-10.2); Hemolysis Index 6
[2017-06-10] MEDS ORDERED: SODIUM BICARBONATE IV ONE (19:17)
[2017-06-10] MEDS ORDERED: NACL 0.9% 1000 ML 3,000 ML IV ONE (19:17)
[2017-06-10] MEDS ORDERED: SODIUM BICARBONATE 150 MEQ in D5W 1,000 ML IV ONE (19:20)
[2017-06-10] MEDS ORDERED: D50W (25GM) Syringe IV PRN ×2 (19:25→23:57)
[2017-06-10 19:34] LABS: Amorphous Crystals,Urine Few; Bilirubin,Urine NEG (Negative); Blood,Urine SM (Negative); Color,Urine Yellow (Yellow); RBC,Urine < 1.0 /HPF (0.0-6.0); Urobilinogen,Urine < 2.0 mg/dL (<2.0)
[2017-06-10 19:40] LABS: Amphetamine Screen,Urine PRESUMPTIVE NEGATIVE; Benzodiazepines Screen,Urine PRESUMPTIVE NEGATIVE; Cannabinoid Screen,Urine PRESUMPTIVE NEGATIVE; Cocaine Screen,Urine PRESUMPTIVE NEGATIVE; Methadone Screen,Urine PRESUMPTIVE NEGATIVE; Opiate Screen,Urine PRESUMPTIVE NEGATIVE
[2017-06-10 19:44] LABS: Band Neutrophils # (Manual) 1.1 K/mm3; Eosinophils % (Manual) 0 % (0.0-4.3); Large Platelets 1+; Total Cells Counted 100
[2017-06-10 19:45] LABS: Anisocytosis 1+; Platelet Estimate Appears Increased; Poikilocytosis 1+
--- NOTE | 2017-06-10 19:53 | Emergency Department Report ---
ED General Adult HPI - General Chief complaint: Hyperglycemia Stated complaint: UNRESPONSIVE / HBS Time Seen by Provider: 06/10/17 18:28 Source: EMS Mode of arrival: Stretcher Limitations: Altered Mental Status - Related Data Previous Rx's Medication Instructions Recorded Last Taken Type Insulin NPH/Regular [NovoLIN 70/30] 10 unit SUB-Q QPMDIAB #30 units 04/01/17 Unknown Rx Insulin NPH/Regular [NovoLIN 70/30] 15 unit SUB-Q QAMDIAB #30 units 04/01/17 Unknown Rx Allergies Allergy/AdvReac Type Severity Reaction Status Date / Time codeine Allergy Hives Verified 04/24/17 18:15 ondansetron HCl [From Zofran] Allergy Hives Verified 04/24/17 18:15 hydrocodone bitartrate AdvReac Headache Verified 04/24/17 18:15 [From Lortab] ED Review of Systems ROS: Stated complaint: UNRESPONSIVE / HBS Other details as noted in HPI ED Past Medical Hx - Past Medical History Hx Hypertension: Yes Hx Congestive Heart Failure: No Hx Diabetes: Yes Hx Asthma: No Hx COPD: No Hx HIV: (States he does not have HIV) Additional medical history: staph infection, CHEST DEFORMITY - Surgical History Additional Surgical History: wound debridement (staph infection)--NECK AND BACK - Social History Smoking Status: Never Smoker Substance Use Type: None - Medications Home Medications: Home Medications Medication Instructions Recorded Confirmed Last Taken Type Insulin NPH/Regular [NovoLIN 70/30] 10 unit SUB-Q QPMDIAB #30 units 04/01/17 Unknown Rx Insulin NPH/Regular [NovoLIN 70/30] 15 unit SUB-Q QAMDIAB #30 units 04/01/17 Unknown Rx ED Physical Exam - General Limitations: Altered Mental Status ED Course Vital Signs 06/10/17 06/10/17 06/10/17 18:05 18:15 18:30 Temperature 98.1 F Pulse Rate 73 72 73 Respiratory 20 18 17 Rate Blood Pressure 98/41 78/36 81/35 O2 Sat by Pulse 96 100 83 L Oximetry 06/10/17 06/10/17 06/10/17 18:45 19:00 19:15 Temperature Pulse Rate 72 72 69 Respiratory 18 18 17 Rate Blood Pressure 79/40 76/39 73/38 O2 Sat by Pulse 100 100 Oximetry 06/10/17 06/10/17 06/10/17 19:30 19:45 20:00 Temperature Pulse Rate 75 72 73 Respiratory 15 15 18 Rate Blood Pressure 77/39 77/39 79/39 O2 Sat by Pulse 100 100 100 Oximetry 06/10/17 06/10/17 06/10/17 20:15 20:30 20:37 Temperature Pulse Rate 74 73 73 Respiratory 19 18 22 Rate Blood Pressure 80/44 85/44 80/48 O2 Sat by Pulse 100 100 100 Oximetry 06/10/17 06/10/17 06/10/17 20:39 20:40 20:41 Temperature Pulse Rate 72 72 72 Respiratory 17 16 15 Rate Blood Pressure 80/48 79/47 79/47 O2 Sat by Pulse 100 100 100 Oximetry 06/10/17 06/10/17 06/10/17 20:43 20:45 20:47 Temperature Pulse Rate 72 73 74 Respiratory 16 16 16 Rate Blood Pressure 79/47 79/47 83/47 O2 Sat by Pulse 100 100 100 Oximetry 06/10/17 06/10/17 20:49 20:51 Temperature Pulse Rate 74 75 Respiratory 19 21 Rate Blood Pressure 83/47 83/47 O2 Sat by Pulse 100 100 Oximetry ED Medical Decision Making - Lab Data Result diagrams: 06/10/17 18:41 06/10/17 18:41 - Medical Decision Making 31-year-old male noncompliant diabetic who presents to the ER with altered mental status. The patient is altered on presentation. He is is noted to be hypotensive with an undetectable glucose because it is too high. He has gap of 20. An undetectable bicarbonate. Potassium is 6.1. Patient has been started on aggressive IV fluid hydration and an insulin drip. He will be admitted for further management. 1. DKA 2. AMS 3. anion gap metabolic acidosis 4. hyperkalemia Critical Care Time: Yes Critical care time in (mins) excluding proc time.: 70 Critical care attestation.: If time is entered above; I have spent that time in minutes in the direct care of this critically ill patient, excluding procedure time. ED Disposition Clinical Impression: DKA (diabetic ketoacidosis), Hyperkalemia, Altered mental status Disposition: OP ADMIT IP TO THIS HOSP Is pt being admited?: Yes Condition: Critical Instructions: Diabetic Ketoacidosis (ED) Referrals: PRIMARY CARE, [Primary Care Provider] - 3-5 Days
[2017-06-10] MEDS: HumuLIN R 100 UNITS in NACL 0.9% 99 ML IV SCH ×3 (20:07→23:44)
[2017-06-10] MEDS ORDERED: VERSED IV ONE ×2 (22:52→22:53)
[2017-06-10 23:33] LABS: BUN/Creatinine Ratio 28; Blood Urea Nitrogen 42 mg/dL (9-20); Calcium 7.2 mg/dL (8.4-10.2); Hemolysis Index 24
[2017-06-10] MEDS ORDERED: KCL 10MEQ/100ML 10 MEQ/100 ML BAG IV SCH ×2 (23:45)
[2017-06-10] MEDS ORDERED: HumuLIN R 100 UNITS in NACL 0.9% 99 ML IV SCH (23:45)
[2017-06-10] MEDS: LEVOPHED DRIP 4 MG/NS 250 ML 4 MG/250 ML BAG IV SCH (23:51)
[2017-06-10] MEDS ORDERED: ZOFRAN IV PRN (23:55)
[2017-06-10] MEDS ORDERED: TYLENOL PO PRN (23:55)
[2017-06-10] MEDS ORDERED: SODIUM CHLORIDE FLUSH SYRINGE 10 ML IV PRN (23:55)
--- NOTE | 2017-06-10 23:55 | Event Note ---
Date: 06/10/17 See dictated H/P in reports
--- NOTE | 2017-06-11 01:04 | XRay Report ---
FINAL REPORT EXAM: XR CHEST 1V AP HISTORY: Confirm line placement TECHNIQUE: Single AP portable radiograph of the chest was obtained. PRIORS: Portable chest radiographs 02/21/2017. FINDINGS: Tube/lines: A right internal jugular line is present, the tip is located at the cavoatrial junction. Lungs: Lung volumes decreased. Patchy left greater than ref parenchymal opacities which may be secondary to pulmonary edema, contusion or infiltrate. Heart: Cardiac silhouette is upper limits of normal. The superior mediastinum appears mildly widened, possibly projectional or secondary to low lung volumes. Osseous structures: No acute osseous abnormality. IMPRESSION: Appropriate position of the right internal jugular line, the tip is located at the cavoatrial junction. Low lung volumes, left greater than right basilar patchy opacities. Differential includes pulmonary edema, contusion or infiltrate. Correlation with clinical exam requested.
[2017-06-11] MEDS: PEPCID IV SCH ×3 (01:09→23:27)
[2017-06-11] MEDS ORDERED: NACL 0.9% 1000 ML 1,000 ML ONE (01:20)
[2017-06-11 01:44] LABS: Calcium 6.9 mg/dL (8.4-10.2)
[2017-06-11 02:32] LABS: Calcium 7.2 mg/dL (8.4-10.2)
[2017-06-11] MEDS: D5W/0.45% NACL/KCL 20 MEQ 20 MEQ/1,000 ML BAG IV SCH ×2 (04:45→19:16)
[2017-06-11] MEDS: LEVOPHED DRIP 4 MG/NS 250 ML 4 MG/250 ML BAG IV SCH ×2 (04:58→13:47)
[2017-06-11] MEDS: HumuLIN R 100 UNITS in NACL 0.9% 99 ML IV SCH (05:01)
[2017-06-11 05:38] LABS: Calcium 7.3 mg/dL (8.4-10.2)
[2017-06-11] MEDS ORDERED: VANCOMYCIN PHARMACY TO DOSE IV SCH (07:00)
--- NOTE | 2017-06-11 07:24 | History and Physical Report ---
CHIEF COMPLAINT: 1. Altered sensorium. 2. High blood sugars. 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 In the ER, his blood sugars were high and patient was in severe metabolic acidosis. The patient also has altered sensorium, decreased responsiveness present. PAST MEDICAL HISTORY: Significant for diabetes, juvenile, uncontrolled and very brittle. Also staph infections in the past and chest deformity. PAST SURGICAL HISTORY: Wound debridement in the past of the neck and the back. FAMILY HISTORY: No significant family history. SOCIAL HISTORY: Does not smoke. CURRENT MEDICATIONS: Insulin 70/30, 15 units twice a day. REVIEW OF SYSTEMS: Could not be done. The patient is altered sensorium and totally confused and decreased responsiveness consistent with a metabolic encephalopathy. The tongue is dry. A 14-point review of systems attempted. PHYSICAL EXAMINATION: GENERAL: Young male, curled up. VITAL SIGNS: Blood pressure is low, initially 60/30, went down as low as 45/20, came with IV fluids to 133/74. HEENT: Tongue dry. Pupils equal and reactive. NECK: Supple, no lymphadenopathy, no thyromegaly. LUNGS: Clear to auscultation and percussion. Good air entry. CARDIOVASCULAR: S1, S2 heard. No gallop, no murmur, no rub. Apical impulse in left fifth intercostal space and midclavicular line. ABDOMEN: Soft and benign. No hepatosplenomegaly. No guarding, no rigidity. Hernial orifices are normal. EXTREMITIES: Good pedal pulses. CENTRAL NERVOUS SYSTEM: Decreased responsiveness present. LABORATORY DATA: Significant for white count of 22,400, H and H is 9.7 and 34.5, platelet count is 482, high. Sodium is 126, potassium is 6.1, BUN and creatinine is 47 and 1.9, lactic acid is 2.4, magnesium is 2.7, alkaline phosphatase is 282, bicarbonate is less than 2. A1c is pending. ASSESSMENT: Chest x-ray shows no infiltrate. Central line in place. ASSESSMENT AND PLAN: 1. Diabetic ketoacidosis, severe. The patient on IV insulin and IV fluids. The patient is very noncompliant. He has been counseled in the past. We will compliance counsel again, but it is futile. The patient has a very poor prognosis long-term. The patient may from complications of DKA and sepsis, etc. 2. Sepsis. The patient initiated on IV Zosyn and vancomycin. 3. Acute kidney injury. IV fluids for now. Hyperkalemia should resolve with IV insulin. Hyponatremia should improve with the blood glucose levels. His blood glucose level was 1074 in the ER. Poor IV access. The patient is a port for long-term management. The patient had to be put on central line because of the hypotension. 4. Hypotension. The patient initiated on Levophed and IV fluids. 5. Deep venous thrombosis prophylaxis, heparin 5000 q. 12. Prognosis is very poor. The patient to be counseled when he is more alert and oriented, even though it is futile. A very poor prognosis. CRITICAL CARE STATEMENT: The high probability of a clinically significant sudden or life-threatening deterioration of the pulmonary, cardiac and renal systems required my full and direct attention, intervention, and personal management. The aggregate critical care time was 40 minutes. This time is in addition to time spent performing reported procedures, but includes the following, data review and interpretation, patient assessment and monitoring of vital signs, documentation, medication orders and management. JOB# [id number] MIESHA/LEX
[2017-06-11 07:28] LABS: BUN/Creatinine Ratio 28; Blood Urea Nitrogen 37 mg/dL (9-20); Calcium 7.2 mg/dL (8.4-10.2); Hemolysis Index 4
[2017-06-11] MEDS ORDERED: ZOSYN/NS 3.375GM/50ML 3.375 GM/50 ML BAG IV SCH (08:00)
[2017-06-11] MEDS: MORPHINE IV PRN ×3 (09:19→19:45)
[2017-06-11] MEDS: SODIUM CHLORIDE FLUSH SYRINGE 10 ML IV SCH ×2 (09:21→23:28)
[2017-06-11] MEDS: HEPARIN SUB-Q SCH ×2 (09:21→23:28)
[2017-06-11] MEDS ORDERED: VANCOMYCIN/0.45 NS 1 GM/250 ML 1 GM/250 ML BAG IV ONE (10:00)
[2017-06-11 10:45] LABS: Calcium 7.5 mg/dL (8.4-10.2)
--- NOTE | 2017-06-11 12:30 | Progress Note ---
History Interval history: Diabetic ketoacidosis. Continue IV fluid hydration and IV insulin drip. We will transition to long-acting insulin once the anion gap has closed and DKA resolved. Sepsis. Continue IV antibiotics of Zosyn and vancomycin. Follow-up blood and urine cultures. Toxic metabolic encephalopathy. Improving. Etiology secondary to above. Continue to treat underlying causes. Acute kidney injury. Continue IV fluids. Follow-up BMP. Hyperkalemia. Etiology secondary to acute renal failure and DKA. Continue to treat with IV insulin drip. Follow-up BMP. Sepsis associated hypotension. Continue IV fluid hydration and monitor closely. We will start pressors as clinically indicated. DVT prophylaxis. Continue heparin every 12 hours. Hospitalist Physical - Constitutional Vitals: Temp Pulse Resp BP Pulse Ox 97.9 F 112 H 14 109/68 99 06/11/17 08:00 06/11/17 09:51 06/11/17 09:51 06/11/17 09:51 06/11/17 09:51 Results - Labs CBC & Chem 7: 06/10/17 18:41 06/11/17 10:15 Labs: Laboratory Last Values WBC 22.4 K/mm3 (4.5-11.0) H 06/10/17 18:41 RBC 3.28 M/mm3 (3.65-5.03) L 06/10/17 18:41 Hgb 9.7 gm/dl (11.8-15.2) L 06/10/17 18:41 Hct 34.5 % (35.5-45.6) L 06/10/17 18:41 MCV 105 fl (84-94) H 06/10/17 18:41 MCH 30 pg (28-32) 06/10/17 18:41 MCHC 28 % (32-34) L 06/10/17 18:41 RDW 15.8 % (13.2-15.2) H 06/10/17 18:41 Plt Count 482 K/mm3 (140-440) H 06/10/17 18:41 Add Manual Diff Complete 18 18:41 Total Counted 100 06/10/17 18:41 Seg Neuts % (Manual) 67.0 % (40.0-70.0) 06/10/17 18:41 Band Neutrophils % 5.0 % 04/19/18 18:41 Lymphocytes % (Manual) 20.0 % (13.4-35.0) 06/10/17 18:41 Reactive Lymphs % (Man) 0 % 06/10/17 18:41 Monocytes % (Manual) 6.0 % (0.0-7.3) 18 18:41 Eosinophils % (Manual) 0 % (0.0-4.3) 18 18:41 Basophils % (Manual) 1.0 % (0.0-1.8) 06/10/17 18:41 Metamyelocytes % 1.0 % 06/10/17 18:41 Myelocytes % 0 % 06/10/17 18:41 Promyelocytes % 0 % 06/10/17 18:41 Blast Cells % 0 % 06/10/17 18:41 Nucleated RBC % Not Reportable 06/10/17 18:41 Seg Neutrophils # Man 15.0 K/mm3 (1.8-7.7) H 06/10/17 18:41 Band Neutrophils # 1.1 K/mm3 06/10/17 18:41 Lymphocytes # (Manual) 4.5 K/mm3 (1.2-5.4) 06/10/17 18:41 Abs React Lymphs (Man) 0.0 K/mm3 06/10/17 18:41 Monocytes # (Manual) 1.3 K/mm3 (0.0-0.8) H 18 18:41 Eosinophils # (Manual) 0.0 K/mm3 (0.0-0.4) 06/10/17 18:41 Basophils # (Manual) 0.2 K/mm3 (0.0-0.1) H 06/10/17 18:41 Metamyelocytes # 0.2 K/mm3 06/10/17 18:41 Myelocytes # 0.0 K/mm3 06/10/17 18:41 Promyelocytes # 0.0 K/mm3 06/10/17 18:41 Blast Cells # 0.0 K/mm3 06/10/17 18:41 WBC Morphology Not Reportable 18 18:41 Hypersegmented Neuts Not Reportable 18 18:41 Hyposegmented Neuts Not Reportable 06/10/17 18:41 Hypogranular Neuts Not Reportable 06/10/17 18:41 Smudge Cells Not Reportable 06/10/17 18:41 Toxic Granulation Not Reportable 06/10/17 18:41 Toxic Vacuolation Not Reportable 06/10/17 18:41 Dohle Bodies Not Reportable 06/10/17 18:41 Pelger-Huet Anomaly Not Reportable 06/10/17 18:41 Gloria Rods Not Reportable 06/10/17 18:41 Platelet Estimate Appears increased 06/10/17 18:41 Clumped Platelets Not Reportable 06/10/17 18:41 Plt Clumps, EDTA Not Reportable 06/10/17 18:41 Large Platelets 1+ 06/10/17 18:41 Giant Platelets Not Reportable 06/10/17 18:41 Platelet Satelliting Not Reportable 06/10/17 18:41 Plt Morphology Comment Not Reportable 06/10/17 18:41 RBC Morphology Not Reportable 06/10/17 18:41 Dimorphic RBCs Not Reportable 06/10/17 18:41 Polychromasia Not Reportable 06/10/17 18:41 Hypochromasia Not Reportable 06/10/17 18:41 Poikilocytosis 1+ 06/10/17 18:41 Anisocytosis 1+ 06/10/17 18:41 Microcytosis Not Reportable 06/10/17 18:41 Macrocytosis Not Reportable 06/10/17 18:41 Spherocytes Not Reportable 06/10/17 18:41 Pappenheimer Bodies Not Reportable 06/10/17 18:41 Sickle Cells Not Reportable 06/10/17 18:41 Target Cells Not Reportable 06/10/17 18:41 Tear Drop Cells Not Reportable 06/10/17 18:41 Ovalocytes Not Reportable 06/10/17 18:41 Helmet Cells Not Reportable 06/10/17 18:41 Guthrie-Caribou Bodies Not Reportable 06/10/17 18:41 Floweree Rings Not Reportable 06/10/17 18:41 Hiland Cells Not Reportable 06/10/17 18:41 Bite Cells Not Reportable 06/10/17 18:41 Crenated Cell Not Reportable 06/10/17 18:41 Elliptocytes Not Reportable 06/10/17 18:41 Acanthocytes (Spur) Not Reportable 06/10/17 18:41 Rouleaux Not Reportable 06/10/17 18:41 Hemoglobin C Crystals Not Reportable 06/10/17 18:41 Schistocytes Not Reportable 06/10/17 18:41 Malaria parasites Not Reportable 06/10/17 18:41 Matt Bodies Not Reportable 06/10/17 18:41 Hem Pathologist Commnt No 06/10/17 18:41 VBG pH 6.793 (7.320-7.420) L* 06/10/17 18:41 Sodium 140 mmol/L (137-145) 06/11/17 10:15 Potassium 3.7 mmol/L (3.6-5.0) 06/11/17 10:15 Chloride 106.3 mmol/L (98-107) 06/11/17 10:15 Carbon Dioxide 12 mmol/L (22-30) L 06/11/17 10:15 Anion Gap 25 mmol/L 06/11/17 10:15 BUN 36 mg/dL (9-20) H 06/11/17 10:15 Creatinine 1.4 mg/dL (0.8-1.5) 06/11/17 10:15 Estimated GFR 60 ml/min 06/11/17 10:15 BUN/Creatinine Ratio 26 % 06/11/17 10:15 Glucose 148 mg/dL (75-100) H 06/11/17 10:15 POC Glucose 187 (70-105) H 06/11/17 11:05 Hemoglobin A1c 9.0 % (4-6) H 06/11/17 00:49 Lactic Acid 2.40 mmol/L (0.7-2.0) H* 06/10/17 18:41 Calcium 7.5 mg/dL (8.4-10.2) L 06/11/17 10:15 Phosphorus 5.00 mg/dL (2.5-4.5) H D 06/11/17 00:49 Magnesium 1.80 mg/dL (1.7-2.3) 06/11/17 00:49 Total Bilirubin 0.20 mg/dL (0.1-1.2) 06/10/17 18:41 AST 15 units/L (5-40) 06/10/17 18:41 ALT 22 units/L (7-56) 06/10/17 18:41 Alkaline Phosphatase 282 units/L (35-129) H 06/10/17 18:41 Total Protein 5.8 g/dL (6.3-8.2) L 06/10/17 18:41 Albumin 2.9 g/dL (3.9-5) L 06/10/17 18:41 Albumin/Globulin Ratio 1.0 % 06/10/17 18:41 Urine Color Yellow (Yellow) 06/10/17 19:10 Urine Turbidity Clear (Clear) 06/10/17 19:10 Urine pH 5.0 (5.0-7.0) 06/10/17 19:10 Ur Specific [place] 1.016 (1.003-1.030) 06/10/17 19:10 Urine Protein 30 mg/dl mg/dL (Negative) 06/10/17 19:10 Urine Glucose (UA) >=500 mg/dL (Negative) 06/10/17 19:10 Urine Ketones 80 mg/dL (Negative) 06/10/17 19:10 Urine Blood Sm (Negative) 06/10/17 19:10 Urine Nitrite Neg (Negative) 06/10/17 19:10 Urine Bilirubin Neg (Negative) 06/10/17 19:10 Urine Urobilinogen < 2.0 mg/dL (<2.0) 06/10/17 19:10 Ur Leukocyte Esterase Neg (Negative) 06/10/17 19:10 Urine WBC (Auto) 1.0 /HPF (0.0-6.0) 06/10/17 19:10 Urine RBC (Auto) < 1.0 /HPF (0.0-6.0) 06/10/17 19:10 Amorphous Crystals Few 06/10/17 19:10 Urine Opiates Screen Presumptive negative 06/10/17 19:10 Urine Methadone Screen Presumptive negative 06/10/17 19:10 Ur Barbiturates Screen Presumptive negative 06/10/17 19:10 Ur Phencyclidine Scrn Presumptive negative 06/10/17 19:10 Ur Amphetamines Screen Presumptive negative 06/10/17 19:10 U Benzodiazepines Scrn Presumptive negative 06/10/17 19:10 Urine Cocaine Screen Presumptive negative 06/10/17 19:10 U Marijuana (THC) Screen Presumptive negative 06/10/17 19:10 Drugs of Abuse Note Disclamer 06/10/17 19:10 Plasma/Serum Alcohol < 0.01 % (0-0.07) 06/10/17 18:41
--- NOTE | 2017-06-11 13:07 | Consultation ---
History of Present Illness Consult date: 06/11/17 Requesting physician: AUTUMN LEDEZMA Reason for consult: other (DKA) History of present illness: PULMONARY/CCM CONSULT NOTE (Full dictation # [id number]) Please see dictated notes for full details Medications and Allergies Allergies Allergy/AdvReac Type Severity Reaction Status Date / Time codeine Allergy Hives Verified 04/24/17 18:15 ondansetron HCl [From Zofran] Allergy Hives Verified 04/24/17 18:15 hydrocodone bitartrate AdvReac Headache Verified 04/24/17 18:15 [From Lortab] Home Medications Medication Instructions Recorded Confirmed Last Taken Type Insulin NPH Human Isophane 15 unit SQ DAILY 06/12/17 06/12/17 06/09/17 History [Novolin N] 15 units Insulin Regular, Human [Novolin R] 06/12/17 06/09/17 History Ferrous Sulfate [Feosol 325 MG tab] 325 mg PO TID #90 tablet 06/14/17 Unknown Rx Active Meds: Active Medications Acetaminophen (Tylenol) 650 mg PO Q4H PRN PRN Reason: Pain MILD(1-3)/Fever >100.5/MCKEON Dextrose (D50w (25gm) Syringe) 0 ml IV PRN PRN PRN Reason: Hypoglycemia Famotidine (Pepcid) 20 mg IV BID SHARATH Last Admin: 06/11/17 09:21 Dose: 20 mg Heparin Sodium (Porcine) (Heparin) 5,000 unit SUB-Q Q12HR SHARATH Last Admin: 06/11/17 09:21 Dose: 5,000 unit Insulin Human Regular 100 (units/ Sodium Chloride) 100 mls @ 1 mls/hr IV TITR SHARATH; Protocol Last Titration: 06/11/17 07:10 Dose: 1.5 units/hr, 1.5 mls/hr Norepinephrine (Levophed Drip 4 Mg/Ns 250 Ml) 4 mg in 250 mls @ 7.5 mls/hr IV TITR SHARATH; Protocol Last Admin: 06/11/17 04:58 Dose: 3 mcg/min, 11.25 mls/hr Potassium Chloride/Dextrose/Sod Cl (D5w/0.45% Nacl/Kcl 20 Meq) 20 meq in 1,000 mls @ 125 mls/hr IV DIRECT SHARATH Last Admin: 04/20/18 04:45 Dose: 125 mls/hr Morphine Sulfate (Morphine) 2 mg IV Q4H PRN PRN Reason: Pain, Moderate (4-6) Last Admin: 06/11/17 09:19 Dose: 2 mg Oxycodone/Acetaminophen (Percocet 5/325) 1 tab PO Q6H PRN PRN Reason: Pain, Moderate (4-6) Sodium Chloride (Sodium Chloride Flush Syringe 10 Ml) 10 ml IV BID SHARATH Last Admin: 06/11/17 09:21 Dose: 10 ml Sodium Chloride (Sodium Chloride Flush Syringe 10 Ml) 10 ml IV PRN PRN PRN Reason: LINE FLUSH Physical Examination Vital signs: Vital Signs Temp Pulse Resp BP Pulse Ox 98.1 F 74 26 H 98/41 96 06/10/17 18:05 06/10/17 18:05 06/10/17 18:05 06/10/17 18:05 06/10/17 18:05 Results - Laboratory Findings CBC and BMP: 06/14/17 15:35 06/14/17 05:55 Abnormal lab findings: Abnormal Labs 06/10/17 06/10/17 06/10/17 18:41 18:41 18:41 WBC 22.4 H RBC 3.28 L Hgb 9.7 L Hct 34.5 L MCV 105 H MCHC 28 L RDW 15.8 H Plt Count 482 H Seg Neutrophils # Man 15.0 H Monocytes # (Manual) 1.3 H Basophils # (Manual) 0.2 H VBG pH Sodium 126 L D Potassium 6.1 H* D Chloride 82.1 L Carbon Dioxide < 2.0 L* D BUN 47 H Creatinine 1.9 H Glucose 1074 H* POC Glucose Hemoglobin A1c Lactic Acid 2.40 H* Calcium 8.2 L Phosphorus Magnesium Alkaline Phosphatase 282 H Total Protein 5.8 L Albumin 2.9 L 06/10/17 06/10/17 06/10/17 18:41 18:53 19:31 WBC RBC Hgb Hct MCV MCHC RDW Plt Count Seg Neutrophils # Man Monocytes # (Manual) Basophils # (Manual) VBG pH 6.793 L* Sodium Potassium Chloride Carbon Dioxide BUN Creatinine Glucose POC Glucose > 500 H Hemoglobin A1c Lactic Acid Calcium Phosphorus 10.20 H Magnesium 2.70 H Alkaline Phosphatase Total Protein Albumin 06/10/17 06/10/17 06/10/17 21:05 21:09 22:10 WBC RBC Hgb Hct MCV MCHC RDW Plt Count Seg Neutrophils # Man Monocytes # (Manual) Basophils # (Manual) VBG pH Sodium 135 L D Potassium Chloride 93.2 L Carbon Dioxide 3 L* BUN 42 H Creatinine 1.6 H Glucose 851 H* POC Glucose > 500 H > 500 H Hemoglobin A1c Lactic Acid Calcium 7.0 L Phosphorus Magnesium Alkaline Phosphatase Total Protein Albumin 06/10/17 06/10/17 06/11/17 23:03 23:17 00:39 WBC RBC Hgb Hct MCV MCHC RDW Plt Count Seg Neutrophils # Man Monocytes # (Manual) Basophils # (Manual) VBG pH Sodium 135 L Potassium Chloride 95.9 L Carbon Dioxide < 2.0 L* BUN 42 H Creatinine Glucose 722 H* POC Glucose 433 H > 500 H Hemoglobin A1c Lactic Acid Calcium 7.2 L Phosphorus Magnesium Alkaline Phosphatase Total Protein Albumin 06/11/17 06/11/17 06/11/17 00:49 00:49 01:29 WBC RBC Hgb Hct MCV MCHC RDW Plt Count Seg Neutrophils # Man Monocytes # (Manual) Basophils # (Manual) VBG pH Sodium Potassium Chloride Carbon Dioxide 5 L* BUN 40 H Creatinine Glucose 519 H* POC Glucose 361 H Hemoglobin A1c 9.0 H Lactic Acid Calcium 6.9 L Phosphorus 5.00 H D Magnesium Alkaline Phosphatase Total Protein Albumin 06/11/17 06/11/17 06/11/17 01:50 02:30 04:03 WBC RBC Hgb Hct MCV MCHC RDW Plt Count Seg Neutrophils # Man Monocytes # (Manual) Basophils # (Manual) VBG pH Sodium Potassium Chloride Carbon Dioxide 3 L* BUN 41 H Creatinine Glucose 433 H POC Glucose 392 H 286 H Hemoglobin A1c Lactic Acid Calcium 7.2 L Phosphorus Magnesium Alkaline Phosphatase Total Protein Albumin 06/11/17 06/11/17 06/11/17 04:17 04:46 05:29 WBC RBC Hgb Hct MCV MCHC RDW Plt Count Seg Neutrophils # Man Monocytes # (Manual) Basophils # (Manual) VBG pH Sodium Potassium Chloride 107.9 H Carbon Dioxide 5 L* BUN 40 H Creatinine Glucose 231 H POC Glucose 196 H 176 H Hemoglobin A1c Lactic Acid Calcium 7.3 L Phosphorus Magnesium Alkaline Phosphatase Total Protein Albumin 06/11/17 06/11/17 06/11/17 05:57 06:46 07:24 WBC RBC Hgb Hct MCV MCHC RDW Plt Count Seg Neutrophils # Man Monocytes # (Manual) Basophils # (Manual) VBG pH Sodium Potassium 3.5 L D Chloride Carbon Dioxide 12 L D BUN 37 H Creatinine Glucose 154 H POC Glucose 173 H 137 H Hemoglobin A1c Lactic Acid Calcium 7.2 L Phosphorus Magnesium Alkaline Phosphatase Total Protein Albumin 06/11/17 06/11/17 06/11/17 09:16 10:15 11:05 WBC RBC Hgb Hct MCV MCHC RDW Plt Count Seg Neutrophils # Man Monocytes # (Manual) Basophils # (Manual) VBG pH Sodium Potassium Chloride Carbon Dioxide 12 L BUN 36 H Creatinine Glucose 148 H POC Glucose 184 H 187 H Hemoglobin A1c Lactic Acid Calcium 7.5 L Phosphorus Magnesium Alkaline Phosphatase Total Protein Albumin
[2017-06-11] MEDS: KCL 20MEQ/100ML 20 MEQ/100 ML BAG IV SCH ×2 (14:04→14:41)
--- NOTE | 2017-06-11 14:20 | History and Physical Report ---
History of Present Illness Date of examination: 06/11/17 Date of admission: 06/10/17 21:31 History of present illness: This pt is a 31 yo male who was admitted via the ER on 06/10/17 due to DKA. He had a RIJ TLC placed via the ER MD. 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 Given his recurrent need for IV access with repeat hospitalizations a vascular surgery consult has been requested to evaluate for port placement. Past History Past Medical History: diabetes (juvenile onset), other (history of MRSA infection by report) Past Surgical History: Other (I&D of his neck and back o/w negative) Social history: lives with family. denies: smoking Family history: no significant family history Medications and Allergies Allergies Allergy/AdvReac Type Severity Reaction Status Date / Time codeine Allergy Hives Verified 04/24/17 18:15 ondansetron HCl [From Zofran] Allergy Hives Verified 04/24/17 18:15 hydrocodone bitartrate AdvReac Headache Verified 04/24/17 18:15 [From Lortab] Home Medications Medication Instructions Recorded Confirmed Last Taken Type Insulin NPH/Regular [NovoLIN 70/30] 10 unit SUB-Q QPMDIAB #30 units 04/01/17 Unknown Rx Insulin NPH/Regular [NovoLIN 70/30] 15 unit SUB-Q QAMDIAB #30 units 04/01/17 Unknown Rx Active Meds: Active Medications Acetaminophen (Tylenol) 650 mg PO Q4H PRN PRN Reason: Pain MILD(1-3)/Fever >100.5/MCKEON Dextrose (D50w (25gm) Syringe) 0 ml IV PRN PRN PRN Reason: Hypoglycemia Famotidine (Pepcid) 20 mg IV BID SHARATH Last Admin: 06/11/17 09:21 Dose: 20 mg Heparin Sodium (Porcine) (Heparin) 5,000 unit SUB-Q Q12HR SHARATH Last Admin: 06/11/17 09:21 Dose: 5,000 unit Insulin Human Regular 100 (units/ Sodium Chloride) 100 mls @ 1 mls/hr IV TITR SHARATH; Protocol Last Titration: 06/11/17 13:56 Dose: 4 units/hr, 4 mls/hr Norepinephrine (Levophed Drip 4 Mg/Ns 250 Ml) 4 mg in 250 mls @ 7.5 mls/hr IV TITR SHARATH; Protocol Last Admin: 06/11/17 13:47 Dose: 3 mcg/min, 11.25 mls/hr Potassium Chloride/Dextrose/Sod Cl (D5w/0.45% Nacl/Kcl 20 Meq) 20 meq in 1,000 mls @ 125 mls/hr IV DIRECT SHARATH Last Admin: 06/11/17 04:45 Dose: 125 mls/hr Morphine Sulfate (Morphine) 2 mg IV Q4H PRN PRN Reason: Pain, Moderate (4-6) Last Admin: 06/11/17 13:45 Dose: 2 mg Oxycodone/Acetaminophen (Percocet 5/325) 1 tab PO Q6H PRN PRN Reason: Pain, Moderate (4-6) Sodium Chloride (Sodium Chloride Flush Syringe 10 Ml) 10 ml IV BID SHARATH Last Admin: 06/11/17 09:21 Dose: 10 ml Sodium Chloride (Sodium Chloride Flush Syringe 10 Ml) 10 ml IV PRN PRN PRN Reason: LINE FLUSH Review of Systems All systems: negative Exam - Constitutional Vitals: Temp Pulse Resp BP Pulse Ox 97.9 F 112 H 14 109/68 99 06/11/17 08:00 06/11/17 09:51 06/11/17 13:45 06/11/17 09:51 06/11/17 09:51 General appearance: Present: no acute distress (thin) - EENT Eyes: Present: EOM intact ENT: hearing intact - Neck Neck: Present: supple (RIJ TLC in place, LEJ peripheral IV in place) - Respiratory Respiratory effort: normal - Cardiovascular Heart rate: 110 (Tachy) - Extremities Extremities: no ischemia, normal temperature - Psychiatric Psychiatric: no appropriate mood/affect (flat affect), intact judgment & insight , cooperative - Neurologic Neurologic: no focal deficits Results - Labs CBC & Chem 7: 06/10/17 18:41 06/11/17 10:15 Labs: Abnormal lab results 06/10/17 06/10/17 06/10/17 Range/Units 18:41 18:41 18:41 WBC 22.4 H (4.5-11.0) K/mm3 RBC 3.28 L (3.65-5.03) M/mm3 Hgb 9.7 L (11.8-15.2) gm/dl Hct 34.5 L (35.5-45.6) % MCV 105 H (84-94) fl MCHC 28 L (32-34) % RDW 15.8 H (13.2-15.2) % Plt Count 482 H (140-440) K/mm3 Seg Neutrophils # Man 15.0 H (1.8-7.7) K/mm3 Monocytes # (Manual) 1.3 H (0.0-0.8) K/mm3 Basophils # (Manual) 0.2 H (0.0-0.1) K/mm3 VBG pH (7.320-7.420) Sodium 126 L D (137-145) mmol/L Potassium 6.1 H* D (3.6-5.0) mmol/L Chloride 82.1 L (98-107) mmol/L Carbon Dioxide < 2.0 L* D (22-30) mmol/L BUN 47 H (9-20) mg/dL Creatinine 1.9 H (0.8-1.5) mg/dL Glucose 1074 H* (75-100) mg/dL POC Glucose (70-105) Hemoglobin A1c (4-6) % Lactic Acid 2.40 H* (0.7-2.0) mmol/L Calcium 8.2 L (8.4-10.2) mg/dL Phosphorus (2.5-4.5) mg/dL Magnesium (1.7-2.3) mg/dL Alkaline Phosphatase 282 H (35-129) units/L Total Protein 5.8 L (6.3-8.2) g/dL Albumin 2.9 L (3.9-5) g/dL 06/10/17 06/10/17 06/10/17 Range/Units 18:41 18:53 19:31 WBC (4.5-11.0) K/mm3 RBC (3.65-5.03) M/mm3 Hgb (11.8-15.2) gm/dl Hct (35.5-45.6) % MCV (84-94) fl MCHC (32-34) % RDW (13.2-15.2) % Plt Count (140-440) K/mm3 Seg Neutrophils # Man (1.8-7.7) K/mm3 Monocytes # (Manual) (0.0-0.8) K/mm3 Basophils # (Manual) (0.0-0.1) K/mm3 VBG pH 6.793 L* (7.320-7.420) Sodium (137-145) mmol/L Potassium (3.6-5.0) mmol/L Chloride (98-107) mmol/L Carbon Dioxide (22-30) mmol/L BUN (9-20) mg/dL Creatinine (0.8-1.5) mg/dL Glucose (75-100) mg/dL POC Glucose > 500 H (70-105) Hemoglobin A1c (4-6) % Lactic Acid (0.7-2.0) mmol/L Calcium (8.4-10.2) mg/dL Phosphorus 10.20 H (2.5-4.5) mg/dL Magnesium 2.70 H (1.7-2.3) mg/dL Alkaline Phosphatase (35-129) units/L Total Protein (6.3-8.2) g/dL Albumin (3.9-5) g/dL 06/10/17 06/10/17 06/10/17 Range/Units 21:05 21:09 22:10 WBC (4.5-11.0) K/mm3 RBC (3.65-5.03) M/mm3 Hgb (11.8-15.2) gm/dl Hct (35.5-45.6) % MCV (84-94) fl MCHC (32-34) % RDW (13.2-15.2) % Plt Count (140-440) K/mm3 Seg Neutrophils # Man (1.8-7.7) K/mm3 Monocytes # (Manual) (0.0-0.8) K/mm3 Basophils # (Manual) (0.0-0.1) K/mm3 VBG pH (7.320-7.420) Sodium 135 L D (137-145) mmol/L Potassium (3.6-5.0) mmol/L Chloride 93.2 L (98-107) mmol/L Carbon Dioxide 3 L* (22-30) mmol/L BUN 42 H (9-20) mg/dL Creatinine 1.6 H (0.8-1.5) mg/dL Glucose 851 H* (75-100) mg/dL POC Glucose > 500 H > 500 H (70-105) Hemoglobin A1c (4-6) % Lactic Acid (0.7-2.0) mmol/L Calcium 7.0 L (8.4-10.2) mg/dL Phosphorus (2.5-4.5) mg/dL Magnesium (1.7-2.3) mg/dL Alkaline Phosphatase (35-129) units/L Total Protein (6.3-8.2) g/dL Albumin (3.9-5) g/dL 06/10/17 06/10/17 06/11/17 Range/Units 23:03 23:17 00:39 WBC (4.5-11.0) K/mm3 RBC (3.65-5.03) M/mm3 Hgb (11.8-15.2) gm/dl Hct (35.5-45.6) % MCV (84-94) fl MCHC (32-34) % RDW (13.2-15.2) % Plt Count (140-440) K/mm3 Seg Neutrophils # Man (1.8-7.7) K/mm3 Monocytes # (Manual) (0.0-0.8) K/mm3 Basophils # (Manual) (0.0-0.1) K/mm3 VBG pH (7.320-7.420) Sodium 135 L (137-145) mmol/L Potassium (3.6-5.0) mmol/L Chloride 95.9 L (98-107) mmol/L Carbon Dioxide < 2.0 L* (22-30) mmol/L BUN 42 H (9-20) mg/dL Creatinine (0.8-1.5) mg/dL Glucose 722 H* (75-100) mg/dL POC Glucose 433 H > 500 H (70-105) Hemoglobin A1c (4-6) % Lactic Acid (0.7-2.0) mmol/L Calcium 7.2 L (8.4-10.2) mg/dL Phosphorus (2.5-4.5) mg/dL Magnesium (1.7-2.3) mg/dL Alkaline Phosphatase (35-129) units/L Total Protein (6.3-8.2) g/dL Albumin (3.9-5) g/dL 06/11/17 06/11/17 06/11/17 Range/Units 00:49 00:49 01:29 WBC (4.5-11.0) K/mm3 RBC (3.65-5.03) M/mm3 Hgb (11.8-15.2) gm/dl Hct (35.5-45.6) % MCV (84-94) fl MCHC (32-34) % RDW (13.2-15.2) % Plt Count (140-440) K/mm3 Seg Neutrophils # Man (1.8-7.7) K/mm3 Monocytes # (Manual) (0.0-0.8) K/mm3 Basophils # (Manual) (0.0-0.1) K/mm3 VBG pH (7.320-7.420) Sodium (137-145) mmol/L Potassium (3.6-5.0) mmol/L Chloride (98-107) mmol/L Carbon Dioxide 5 L* (22-30) mmol/L BUN 40 H (9-20) mg/dL Creatinine (0.8-1.5) mg/dL Glucose 519 H* (75-100) mg/dL POC Glucose 361 H (70-105) Hemoglobin A1c 9.0 H (4-6) % Lactic Acid (0.7-2.0) mmol/L Calcium 6.9 L (8.4-10.2) mg/dL Phosphorus 5.00 H D (2.5-4.5) mg/dL Magnesium (1.7-2.3) mg/dL Alkaline Phosphatase (35-129) units/L Total Protein (6.3-8.2) g/dL Albumin (3.9-5) g/dL 06/11/17 06/11/17 06/11/17 Range/Units 01:50 02:30 04:03 WBC (4.5-11.0) K/mm3 RBC (3.65-5.03) M/mm3 Hgb (11.8-15.2) gm/dl Hct (35.5-45.6) % MCV (84-94) fl MCHC (32-34) % RDW (13.2-15.2) % Plt Count (140-440) K/mm3 Seg Neutrophils # Man (1.8-7.7) K/mm3 Monocytes # (Manual) (0.0-0.8) K/mm3 Basophils # (Manual) (0.0-0.1) K/mm3 VBG pH (7.320-7.420) Sodium (137-145) mmol/L Potassium (3.6-5.0) mmol/L Chloride (98-107) mmol/L Carbon Dioxide 3 L* (22-30) mmol/L BUN 41 H (9-20) mg/dL Creatinine (0.8-1.5) mg/dL Glucose 433 H (75-100) mg/dL POC Glucose 392 H 286 H (70-105) Hemoglobin A1c (4-6) % Lactic Acid (0.7-2.0) mmol/L Calcium 7.2 L (8.4-10.2) mg/dL Phosphorus (2.5-4.5) mg/dL Magnesium (1.7-2.3) mg/dL Alkaline Phosphatase (35-129) units/L Total Protein (6.3-8.2) g/dL Albumin (3.9-5) g/dL 06/11/17 06/11/17 06/11/17 Range/Units 04:17 04:46 05:29 WBC (4.5-11.0) K/mm3 RBC (3.65-5.03) M/mm3 Hgb (11.8-15.2) gm/dl Hct (35.5-45.6) % MCV (84-94) fl MCHC (32-34) % RDW (13.2-15.2) % Plt Count (140-440) K/mm3 Seg Neutrophils # Man (1.8-7.7) K/mm3 Monocytes # (Manual) (0.0-0.8) K/mm3 Basophils # (Manual) (0.0-0.1) K/mm3 VBG pH (7.320-7.420) Sodium (137-145) mmol/L Potassium (3.6-5.0) mmol/L Chloride 107.9 H (98-107) mmol/L Carbon Dioxide 5 L* (22-30) mmol/L BUN 40 H (9-20) mg/dL Creatinine (0.8-1.5) mg/dL Glucose 231 H (75-100) mg/dL POC Glucose 196 H 176 H (70-105) Hemoglobin A1c (4-6) % Lactic Acid (0.7-2.0) mmol/L Calcium 7.3 L (8.4-10.2) mg/dL Phosphorus (2.5-4.5) mg/dL Magnesium (1.7-2.3) mg/dL Alkaline Phosphatase (35-129) units/L Total Protein (6.3-8.2) g/dL Albumin (3.9-5) g/dL 06/11/17 06/11/17 06/11/17 Range/Units 05:57 06:46 07:24 WBC (4.5-11.0) K/mm3 RBC (3.65-5.03) M/mm3 Hgb (11.8-15.2) gm/dl Hct (35.5-45.6) % MCV (84-94) fl MCHC (32-34) % RDW (13.2-15.2) % Plt Count (140-440) K/mm3 Seg Neutrophils # Man (1.8-7.7) K/mm3 Monocytes # (Manual) (0.0-0.8) K/mm3 Basophils # (Manual) (0.0-0.1) K/mm3 VBG pH (7.320-7.420) Sodium (137-145) mmol/L Potassium 3.5 L D (3.6-5.0) mmol/L Chloride (98-107) mmol/L Carbon Dioxide 12 L D (22-30) mmol/L BUN 37 H (9-20) mg/dL Creatinine (0.8-1.5) mg/dL Glucose 154 H (75-100) mg/dL POC Glucose 173 H 137 H (70-105) Hemoglobin A1c (4-6) % Lactic Acid (0.7-2.0) mmol/L Calcium 7.2 L (8.4-10.2) mg/dL Phosphorus (2.5-4.5) mg/dL Magnesium (1.7-2.3) mg/dL Alkaline Phosphatase (35-129) units/L Total Protein (6.3-8.2) g/dL Albumin (3.9-5) g/dL 06/11/17 06/11/17 06/11/17 Range/Units 09:16 10:15 11:05 WBC (4.5-11.0) K/mm3 RBC (3.65-5.03) M/mm3 Hgb (11.8-15.2) gm/dl Hct (35.5-45.6) % MCV (84-94) fl MCHC (32-34) % RDW (13.2-15.2) % Plt Count (140-440) K/mm3 Seg Neutrophils # Man (1.8-7.7) K/mm3 Monocytes # (Manual) (0.0-0.8) K/mm3 Basophils # (Manual) (0.0-0.1) K/mm3 VBG pH (7.320-7.420) Sodium (137-145) mmol/L Potassium (3.6-5.0) mmol/L Chloride (98-107) mmol/L Carbon Dioxide 12 L (22-30) mmol/L BUN 36 H (9-20) mg/dL Creatinine (0.8-1.5) mg/dL Glucose 148 H (75-100) mg/dL POC Glucose 184 H 187 H (70-105) Hemoglobin A1c (4-6) % Lactic Acid (0.7-2.0) mmol/L Calcium 7.5 L (8.4-10.2) mg/dL Phosphorus (2.5-4.5) mg/dL Magnesium (1.7-2.3) mg/dL Alkaline Phosphatase (35-129) units/L Total Protein (6.3-8.2) g/dL Albumin (3.9-5) g/dL Assessment and Plan Pt is a brittle diabetic admitted with DKA currently in the ICU. He has a RIJ TLC placed by the ER physician, which is being used for resuscitation. He frequently requires hospitalizations and may benefit from placement of intermediate project manager IV access once he recovers from his current medical issues. We can re- evaluate the pt prior to d/c, or he can f/u in our office as an outpt to make arrangements for port placement. - Patient Problems (1) Poor venous access Current Visit: Yes Status: Acute (2) DKA (diabetic ketoacidosis) Current Visit: Yes Status: Acute Qualifiers: (3) History of MRSA infection Current Visit: Yes Status: Acute (4) Diabetes mellitus type I Current Visit: No Status: Chronic
[2017-06-11 17:04] LABS: Calcium 7.3 mg/dL (8.4-10.2)
[2017-06-11] MEDS ORDERED: CATHFLO IV ONE ×2 (20:40→22:10)
[2017-06-11 21:39] LABS: Hematocrit 24.3 % (35.5-45.6); Hemoglobin 8.7 gm/dl (11.8-15.2); Mean Corpuscular HGB Conc 36 % (32-34); Mean Corpuscular Hemoglobin 31 pg (28-32); Mean Corpuscular Volume 86 fl (84-94); Platelet Count 235 K/mm3 (140-440); Red Blood Count 2.84 M/mm3 (3.65-5.03); Red Cell Distribution Width 14.7 % (13.2-15.2)
[2017-06-11 21:52] LABS: Calcium 7.5 mg/dL (8.4-10.2)
[2017-06-11] MEDS ORDERED: VANCOMYCIN 750 MG in NACL 0.9% 250ML 250 ML IV SCH (22:00)
[2017-06-12] MEDS: MORPHINE IV PRN ×4 (00:26→23:47)
[2017-06-12 02:38] LABS: BUN/Creatinine Ratio 23; Blood Urea Nitrogen 30 mg/dL (9-20); Calcium 7.2 mg/dL (8.4-10.2); Hemolysis Index 2
[2017-06-12] MEDS: D5W/0.45% NACL/KCL 20 MEQ 20 MEQ/1,000 ML BAG IV SCH (03:15)
[2017-06-12 08:05] LABS: BUN/Creatinine Ratio 19; Blood Urea Nitrogen 25 mg/dL (9-20); Calcium 7.7 mg/dL (8.4-10.2); Hemolysis Index 1
[2017-06-12] MEDS: PEPCID IV SCH ×2 (09:34→23:42)
[2017-06-12] MEDS: HEPARIN SUB-Q SCH ×2 (09:34→23:42)
[2017-06-12] MEDS: SODIUM CHLORIDE FLUSH SYRINGE 10 ML IV SCH ×2 (09:35→23:41)
[2017-06-12] MEDS: PERCOCET 5/325 PO PRN ×2 (09:40→18:33)
--- NOTE | 2017-06-12 10:11 | Progress Note ---
Assessment and Plan Severe sepsis Diabetic ketoacidosis. Toxic metabolic encephalopathy Acute kidney injury Hyperkalemia. Subjective Date of service: 06/12/17 Principal diagnosis: Sepsis, diabetic ketoacidosis, acute encephalopathy(toxic, metabolic) Objective Vital Signs - 12hr 06/11/17 06/11/17 06/11/17 22:15 22:30 22:45 Temperature Pulse Rate 99 H 98 H 98 H Pulse Rate [ From Monitor] Respiratory 10 L 11 L 11 L Rate Blood Pressure 127/80 131/83 129/85 O2 Sat by Pulse 100 100 100 Oximetry 06/11/17 06/11/17 06/11/17 22:58 23:00 23:15 Temperature Pulse Rate 96 H 99 H 99 H Pulse Rate [ From Monitor] Respiratory 11 L 11 L 10 L Rate Blood Pressure 129/85 127/77 109/61 O2 Sat by Pulse 99 99 100 Oximetry 06/11/17 06/11/17 06/11/17 23:30 23:45 23:52 Temperature Pulse Rate 98 H 100 H Pulse Rate [ 101 H From Monitor] Respiratory 10 L 9 L 12 Rate Blood Pressure 130/80 133/80 O2 Sat by Pulse 100 100 Oximetry 06/12/17 06/12/17 06/12/17 00:00 00:15 00:30 Temperature Pulse Rate 99 H 100 H 97 H Pulse Rate [ From Monitor] Respiratory 10 L 11 L 11 L Rate Blood Pressure 116/73 131/77 124/71 O2 Sat by Pulse 100 Oximetry 06/12/17 06/12/17 06/12/17 00:45 01:00 01:15 Temperature Pulse Rate 97 H 99 H 95 H Pulse Rate [ From Monitor] Respiratory 9 L 11 L 9 L Rate Blood Pressure 122/75 122/79 110/63 O2 Sat by Pulse Oximetry 06/12/17 06/12/17 06/12/17 01:30 01:45 02:00 Temperature Pulse Rate 99 H 97 H 102 H Pulse Rate [ From Monitor] Respiratory 10 L 10 L 13 Rate Blood Pressure 123/79 103/63 89/49 O2 Sat by Pulse 100 98 100 Oximetry 06/12/17 06/12/17 06/12/17 02:15 02:30 02:45 Temperature Pulse Rate 96 H 98 H 97 H Pulse Rate [ From Monitor] Respiratory 11 L 10 L 10 L Rate Blood Pressure 123/75 126/78 127/80 O2 Sat by Pulse 99 99 99 Oximetry 06/12/17 06/12/17 06/12/17 03:00 03:15 03:30 Temperature Pulse Rate 96 H 98 H 97 H Pulse Rate [ From Monitor] Respiratory 11 L 8 L 11 L Rate Blood Pressure 119/78 134/89 125/79 O2 Sat by Pulse 100 Oximetry 06/12/17 06/12/17 06/12/17 03:45 04:00 04:15 Temperature 98.5 F Pulse Rate 100 H 107 H 94 H Pulse Rate [ From Monitor] Respiratory 10 L 20 15 Rate Blood Pressure 127/81 140/86 117/79 O2 Sat by Pulse 98 98 Oximetry 06/12/17 06/12/17 06/12/17 04:20 04:30 04:45 Temperature Pulse Rate 103 H 93 H Pulse Rate [ 94 H From Monitor] Respiratory 15 12 11 L Rate Blood Pressure 108/67 101/63 O2 Sat by Pulse 98 97 98 Oximetry 06/12/17 06/12/17 06/12/17 05:00 05:15 05:30 Temperature Pulse Rate 94 H 96 H 95 H Pulse Rate [ From Monitor] Respiratory 10 L 10 L 10 L Rate Blood Pressure 107/67 116/75 118/75 O2 Sat by Pulse 99 Oximetry 06/12/17 06/12/17 06/12/17 05:45 06:00 06:15 Temperature Pulse Rate 97 H 97 H 98 H Pulse Rate [ From Monitor] Respiratory 10 L 10 L 10 L Rate Blood Pressure 114/72 118/71 114/70 O2 Sat by Pulse 99 98 97 Oximetry 06/12/17 06/12/17 06/12/17 06:30 06:45 07:00 Temperature Pulse Rate 96 H 90 96 H Pulse Rate [ From Monitor] Respiratory 10 L 10 L 10 L Rate Blood Pressure 107/67 103/63 107/67 O2 Sat by Pulse 96 97 95 Oximetry 06/12/17 06/12/17 06/12/17 07:15 07:30 07:45 Temperature Pulse Rate 92 H 92 H 91 H Pulse Rate [ From Monitor] Respiratory 9 L 10 L 9 L Rate Blood Pressure 114/76 109/76 117/76 O2 Sat by Pulse 100 98 99 Oximetry 06/12/17 06/12/17 06/12/17 07:48 07:58 08:00 Temperature 97.9 F Pulse Rate 92 H 95 H Pulse Rate [ 94 H From Monitor] Respiratory 14 11 L Rate Blood Pressure 110/68 O2 Sat by Pulse 99 99 Oximetry 06/12/17 06/12/17 08:06 09:40 Temperature Pulse Rate Pulse Rate [ From Monitor] Respiratory 12 Rate Blood Pressure O2 Sat by Pulse 96 Oximetry CBC and BMP: 06/11/17 21:00 06/12/17 07:20 Abnormal lab findings: Abnormal Labs 06/10/17 06/10/17 06/10/17 18:41 18:41 18:41 WBC 22.4 H RBC 3.28 L Hgb 9.7 L Hct 34.5 L MCV 105 H MCHC 28 L RDW 15.8 H Plt Count 482 H Seg Neutrophils # Man 15.0 H Monocytes # (Manual) 1.3 H Basophils # (Manual) 0.2 H VBG pH Sodium 126 L D Potassium 6.1 H* D Chloride 82.1 L Carbon Dioxide < 2.0 L* D BUN 47 H Creatinine 1.9 H Glucose 1074 H* POC Glucose Hemoglobin A1c Lactic Acid 2.40 H* Calcium 8.2 L Phosphorus Magnesium Alkaline Phosphatase 282 H Total Protein 5.8 L Albumin 2.9 L 06/10/17 06/10/17 06/10/17 18:41 18:53 19:31 WBC RBC Hgb Hct MCV MCHC RDW Plt Count Seg Neutrophils # Man Monocytes # (Manual) Basophils # (Manual) VBG pH 6.793 L* Sodium Potassium Chloride Carbon Dioxide BUN Creatinine Glucose POC Glucose > 500 H Hemoglobin A1c Lactic Acid Calcium Phosphorus 10.20 H Magnesium 2.70 H Alkaline Phosphatase Total Protein Albumin 06/10/17 06/10/17 06/10/17 21:05 21:09 22:10 WBC RBC Hgb Hct MCV MCHC RDW Plt Count Seg Neutrophils # Man Monocytes # (Manual) Basophils # (Manual) VBG pH Sodium 135 L D Potassium Chloride 93.2 L Carbon Dioxide 3 L* BUN 42 H Creatinine 1.6 H Glucose 851 H* POC Glucose > 500 H > 500 H Hemoglobin A1c Lactic Acid Calcium 7.0 L Phosphorus Magnesium Alkaline Phosphatase Total Protein Albumin 06/10/17 06/10/17 06/11/17 23:03 23:17 00:39 WBC RBC Hgb Hct MCV MCHC RDW Plt Count Seg Neutrophils # Man Monocytes # (Manual) Basophils # (Manual) VBG pH Sodium 135 L Potassium Chloride 95.9 L Carbon Dioxide < 2.0 L* BUN 42 H Creatinine Glucose 722 H* POC Glucose 433 H > 500 H Hemoglobin A1c Lactic Acid Calcium 7.2 L Phosphorus Magnesium Alkaline Phosphatase Total Protein Albumin 06/11/17 06/11/17 06/11/17 00:49 00:49 01:29 WBC RBC Hgb Hct MCV MCHC RDW Plt Count Seg Neutrophils # Man Monocytes # (Manual) Basophils # (Manual) VBG pH Sodium Potassium Chloride Carbon Dioxide 5 L* BUN 40 H Creatinine Glucose 519 H* POC Glucose 361 H Hemoglobin A1c 9.0 H Lactic Acid Calcium 6.9 L Phosphorus 5.00 H D Magnesium Alkaline Phosphatase Total Protein Albumin 06/11/17 06/11/17 06/11/17 01:50 02:30 04:03 WBC RBC Hgb Hct MCV MCHC RDW Plt Count Seg Neutrophils # Man Monocytes # (Manual) Basophils # (Manual) VBG pH Sodium Potassium Chloride Carbon Dioxide 3 L* BUN 41 H Creatinine Glucose 433 H POC Glucose 392 H 286 H Hemoglobin A1c Lactic Acid Calcium 7.2 L Phosphorus Magnesium Alkaline Phosphatase Total Protein Albumin 06/11/17 06/11/17 06/11/17 04:17 04:46 05:29 WBC RBC Hgb Hct MCV MCHC RDW Plt Count Seg Neutrophils # Man Monocytes # (Manual) Basophils # (Manual) VBG pH Sodium Potassium Chloride 107.9 H Carbon Dioxide 5 L* BUN 40 H Creatinine Glucose 231 H POC Glucose 196 H 176 H Hemoglobin A1c Lactic Acid Calcium 7.3 L Phosphorus Magnesium Alkaline Phosphatase Total Protein Albumin 06/11/17 06/11/17 06/11/17 05:57 06:46 07:24 WBC RBC Hgb Hct MCV MCHC RDW Plt Count Seg Neutrophils # Man Monocytes # (Manual) Basophils # (Manual) VBG pH Sodium Potassium 3.5 L D Chloride Carbon Dioxide 12 L D BUN 37 H Creatinine Glucose 154 H POC Glucose 173 H 137 H Hemoglobin A1c Lactic Acid Calcium 7.2 L Phosphorus Magnesium Alkaline Phosphatase Total Protein Albumin 06/11/17 06/11/17 06/11/17 09:16 10:15 11:05 WBC RBC Hgb Hct MCV MCHC RDW Plt Count Seg Neutrophils # Man Monocytes # (Manual) Basophils # (Manual) VBG pH Sodium Potassium Chloride Carbon Dioxide 12 L BUN 36 H Creatinine Glucose 148 H POC Glucose 184 H 187 H Hemoglobin A1c Lactic Acid Calcium 7.5 L Phosphorus Magnesium Alkaline Phosphatase Total Protein Albumin 06/11/17 06/11/17 06/11/17 12:30 13:56 14:52 WBC RBC Hgb Hct MCV MCHC RDW Plt Count Seg Neutrophils # Man Monocytes # (Manual) Basophils # (Manual) VBG pH Sodium Potassium Chloride Carbon Dioxide BUN Creatinine Glucose POC Glucose 163 H 241 H 181 H Hemoglobin A1c Lactic Acid Calcium Phosphorus Magnesium Alkaline Phosphatase Total Protein Albumin 06/11/17 06/11/17 06/11/17 16:27 17:39 18:29 WBC RBC Hgb Hct MCV MCHC RDW Plt Count Seg Neutrophils # Man Monocytes # (Manual) Basophils # (Manual) VBG pH Sodium Potassium Chloride 110.0 H Carbon Dioxide 13 L BUN 35 H Creatinine Glucose POC Glucose 148 H 128 H Hemoglobin A1c Lactic Acid Calcium 7.3 L Phosphorus Magnesium Alkaline Phosphatase Total Protein Albumin 06/11/17 06/11/17 06/11/17 19:46 20:23 21:00 WBC RBC Hgb Hct MCV MCHC RDW Plt Count Seg Neutrophils # Man Monocytes # (Manual) Basophils # (Manual) VBG pH Sodium Potassium Chloride 108.3 H Carbon Dioxide 17 L BUN 33 H Creatinine Glucose 122 H POC Glucose 115 H 109 H Hemoglobin A1c Lactic Acid Calcium 7.5 L Phosphorus Magnesium Alkaline Phosphatase Total Protein Albumin 06/11/17 06/11/17 06/11/17 21:00 21:26 22:09 WBC RBC 2.84 L Hgb 8.7 L Hct 24.3 L D MCV MCHC 36 H RDW Plt Count Seg Neutrophils # Man Monocytes # (Manual) Basophils # (Manual) VBG pH Sodium Potassium Chloride Carbon Dioxide BUN Creatinine Glucose POC Glucose 151 H 160 H Hemoglobin A1c Lactic Acid Calcium Phosphorus Magnesium Alkaline Phosphatase Total Protein Albumin 06/11/17 06/12/17 06/12/17 23:29 00:00 01:29 WBC RBC Hgb Hct MCV MCHC RDW Plt Count Seg Neutrophils # Man Monocytes # (Manual) Basophils # (Manual) VBG pH Sodium Potassium Chloride Carbon Dioxide BUN Creatinine Glucose POC Glucose 135 H 131 H 135 H Hemoglobin A1c Lactic Acid Calcium Phosphorus Magnesium Alkaline Phosphatase Total Protein Albumin 06/12/17 06/12/17 06/12/17 02:00 02:07 03:22 WBC RBC Hgb Hct MCV MCHC RDW Plt Count Seg Neutrophils # Man Monocytes # (Manual) Basophils # (Manual) VBG pH Sodium Potassium Chloride 108.9 H Carbon Dioxide 17 L BUN 30 H Creatinine Glucose 126 H POC Glucose 153 H 147 H Hemoglobin A1c Lactic Acid Calcium 7.2 L Phosphorus Magnesium Alkaline Phosphatase Total Protein Albumin 06/12/17 06/12/17 06/12/17 04:24 05:21 07:20 WBC RBC Hgb Hct MCV MCHC RDW Plt Count Seg Neutrophils # Man Monocytes # (Manual) Basophils # (Manual) VBG pH Sodium 135 L Potassium Chloride 110.5 H Carbon Dioxide 17 L BUN 25 H Creatinine Glucose 130 H POC Glucose 154 H 115 H Hemoglobin A1c Lactic Acid Calcium 7.7 L Phosphorus Magnesium Alkaline Phosphatase Total Protein Albumin 06/12/17 08:29 WBC RBC Hgb Hct MCV MCHC RDW Plt Count Seg Neutrophils # Man Monocytes # (Manual) Basophils # (Manual) VBG pH Sodium Potassium Chloride Carbon Dioxide BUN Creatinine Glucose POC Glucose 161 H Hemoglobin A1c Lactic Acid Calcium Phosphorus Magnesium Alkaline Phosphatase Total Protein Albumin
[2017-06-12] MEDS ORDERED: D50W (25GM) Syringe IV PRN (12:19)
--- NOTE | 2017-06-12 12:37 | Progress Note ---
History Interval history: Diabetic ketoacidosis. Resolved. The patient will be Transitioned to his home regimen of long-acting insulin Sepsis. Continue IV antibiotics of Zosyn and vancomycin. Follow-up blood and urine cultures. Toxic metabolic encephalopathy. Resolved. Etiology secondary to above. Continue to treat underlying causes. Acute kidney injury. Continue IV fluids. Follow-up BMP. Hyperkalemia. Etiology secondary to acute renal failure and DKA. Resolved Sepsis associated hypotension. Continue IV fluid hydration and monitor closely. Wean levophed off DVT prophylaxis. Continue heparin every 12 hours. Disposition. Patient will be transferred to the floor if hypotension resolved off of levophed. Hospitalist Physical - Constitutional Vitals: Temp Pulse Resp BP Pulse Ox 97.5 F L 95 H 12 110/68 96 06/12/17 12:00 06/12/17 08:00 06/12/17 09:40 06/12/17 08:00 06/12/17 08:06 General appearance: Present: no acute distress (thin) Results - Labs CBC & Chem 7: 06/11/17 21:00 06/12/17 07:20 Labs: Laboratory Last Values WBC 7.6 K/mm3 (4.5-11.0) 06/11/17 21:00 RBC 2.84 M/mm3 (3.65-5.03) L 06/11/17 21:00 Hgb 8.7 gm/dl (11.8-15.2) L 06/11/17 21:00 Hct 24.3 % (35.5-45.6) L D 06/11/17 21:00 MCV 86 fl (84-94) 06/11/17 21:00 MCH 31 pg (28-32) 06/11/17 21:00 MCHC 36 % (32-34) H 06/11/17 21:00 RDW 14.7 % (13.2-15.2) 06/11/17 21:00 Plt Count 235 K/mm3 (140-440) 06/11/17 21:00 Add Manual Diff Complete 06/10/17 18:41 Total Counted 100 06/10/17 18:41 Seg Neuts % (Manual) 67.0 % (40.0-70.0) 06/10/17 18:41 Band Neutrophils % 5.0 % 06/10/17 18:41 Lymphocytes % (Manual) 20.0 % (13.4-35.0) 18 18:41 Reactive Lymphs % (Man) 0 % 18 18:41 Monocytes % (Manual) 6.0 % (0.0-7.3) 18 18:41 Eosinophils % (Manual) 0 % (0.0-4.3) 18 18:41 Basophils % (Manual) 1.0 % (0.0-1.8) 06/10/17 18:41 Metamyelocytes % 1.0 % 18 18:41 Myelocytes % 0 % 06/10/17 18:41 Promyelocytes % 0 % 06/10/17 18:41 Blast Cells % 0 % 06/10/17 18:41 Nucleated RBC % Not Reportable 06/10/17 18:41 Seg Neutrophils # Man 15.0 K/mm3 (1.8-7.7) H 06/10/17 18:41 Band Neutrophils # 1.1 K/mm3 06/10/17 18:41 Lymphocytes # (Manual) 4.5 K/mm3 (1.2-5.4) 18 18:41 Abs React Lymphs (Man) 0.0 K/mm3 06/10/17 18:41 Monocytes # (Manual) 1.3 K/mm3 (0.0-0.8) H 18 18:41 Eosinophils # (Manual) 0.0 K/mm3 (0.0-0.4) 06/10/17 18:41 Basophils # (Manual) 0.2 K/mm3 (0.0-0.1) H 06/10/17 18:41 Metamyelocytes # 0.2 K/mm3 06/10/17 18:41 Myelocytes # 0.0 K/mm3 06/10/17 18:41 Promyelocytes # 0.0 K/mm3 06/10/17 18:41 Blast Cells # 0.0 K/mm3 06/10/17 18:41 WBC Morphology Not Reportable 06/10/17 18:41 Hypersegmented Neuts Not Reportable 06/10/17 18:41 Hyposegmented Neuts Not Reportable 06/10/17 18:41 Hypogranular Neuts Not Reportable 06/10/17 18:41 Smudge Cells Not Reportable 06/10/17 18:41 Toxic Granulation Not Reportable 06/10/17 18:41 Toxic Vacuolation Not Reportable 06/10/17 18:41 Dohle Bodies Not Reportable 06/10/17 18:41 Pelger-Huet Anomaly Not Reportable 06/10/17 18:41 Gloria Rods Not Reportable 06/10/17 18:41 Platelet Estimate Appears increased 06/10/17 18:41 Clumped Platelets Not Reportable 06/10/17 18:41 Plt Clumps, EDTA Not Reportable 06/10/17 18:41 Large Platelets 1+ 06/10/17 18:41 Giant Platelets Not Reportable 06/10/17 18:41 Platelet Satelliting Not Reportable 06/10/17 18:41 Plt Morphology Comment Not Reportable 06/10/17 18:41 RBC Morphology Not Reportable 06/10/17 18:41 Dimorphic RBCs Not Reportable 06/10/17 18:41 Polychromasia Not Reportable 06/10/17 18:41 Hypochromasia Not Reportable 06/10/17 18:41 Poikilocytosis 1+ 06/10/17 18:41 Anisocytosis 1+ 06/10/17 18:41 Microcytosis Not Reportable 06/10/17 18:41 Macrocytosis Not Reportable 06/10/17 18:41 Spherocytes Not Reportable 06/10/17 18:41 Pappenheimer Bodies Not Reportable 06/10/17 18:41 Sickle Cells Not Reportable 06/10/17 18:41 Target Cells Not Reportable 06/10/17 18:41 Tear Drop Cells Not Reportable 06/10/17 18:41 Ovalocytes Not Reportable 06/10/17 18:41 Helmet Cells Not Reportable 06/10/17 18:41 [place] Bodies Not Reportable 06/10/17 18:41 [place] Rings Not Reportable 06/10/17 18:41 [place] Cells Not Reportable 06/10/17 18:41 Bite Cells Not Reportable 06/10/17 18:41 Crenated Cell Not Reportable 06/10/17 18:41 Elliptocytes Not Reportable 06/10/17 18:41 Acanthocytes (Spur) Not Reportable 06/10/17 18:41 Rouleaux Not Reportable 06/10/17 18:41 Hemoglobin C Crystals Not Reportable 06/10/17 18:41 Schistocytes Not Reportable 06/10/17 18:41 Malaria parasites Not Reportable 06/10/17 18:41 Matt Bodies Not Reportable 06/10/17 18:41 Hem Pathologist Commnt No 06/10/17 18:41 VBG pH 6.793 (7.320-7.420) L* 06/10/17 18:41 Sodium 135 mmol/L (137-145) L 06/12/17 07:20 Potassium 3.8 mmol/L (3.6-5.0) 06/12/17 07:20 Chloride 110.5 mmol/L (98-107) H 06/12/17 07:20 Carbon Dioxide 17 mmol/L (22-30) L 06/12/17 07:20 Anion Gap 11 mmol/L 06/12/17 07:20 BUN 25 mg/dL (9-20) H 06/12/17 07:20 Creatinine 1.3 mg/dL (0.8-1.5) 06/12/17 07:20 Estimated GFR > 60 ml/min 06/12/17 07:20 BUN/Creatinine Ratio 19 % 06/12/17 07:20 Glucose 130 mg/dL (75-100) H 06/12/17 07:20 POC Glucose 124 (70-105) H 06/12/17 10:30 Hemoglobin A1c 9.0 % (4-6) H 06/11/17 00:49 Lactic Acid 2.40 mmol/L (0.7-2.0) H* 06/10/17 18:41 Calcium 7.7 mg/dL (8.4-10.2) L 06/12/17 07:20 Phosphorus 5.00 mg/dL (2.5-4.5) H D 06/11/17 00:49 Magnesium 1.80 mg/dL (1.7-2.3) 06/11/17 00:49 Total Bilirubin 0.20 mg/dL (0.1-1.2) 06/10/17 18:41 AST 15 units/L (5-40) 06/10/17 18:41 ALT 22 units/L (7-56) 06/10/17 18:41 Alkaline Phosphatase 282 units/L (35-129) H 06/10/17 18:41 Total Protein 5.8 g/dL (6.3-8.2) L 06/10/17 18:41 Albumin 2.9 g/dL (3.9-5) L 06/10/17 18:41 Albumin/Globulin Ratio 1.0 % 06/10/17 18:41 Urine Color Yellow (Yellow) 06/10/17 19:10 Urine Turbidity Clear (Clear) 06/10/17 19:10 Urine pH 5.0 (5.0-7.0) 06/10/17 19:10 Ur Specific [place] 1.016 (1.003-1.030) 06/10/17 19:10 Urine Protein 30 mg/dl mg/dL (Negative) 06/10/17 19:10 Urine Glucose (UA) >=500 mg/dL (Negative) 06/10/17 19:10 Urine Ketones 80 mg/dL (Negative) 06/10/17 19:10 Urine Blood Sm (Negative) 06/10/17 19:10 Urine Nitrite Neg (Negative) 06/10/17 19:10 Urine Bilirubin Neg (Negative) 06/10/17 19:10 Urine Urobilinogen < 2.0 mg/dL (<2.0) 06/10/17 19:10 Ur Leukocyte Esterase Neg (Negative) 06/10/17 19:10 Urine WBC (Auto) 1.0 /HPF (0.0-6.0) 06/10/17 19:10 Urine RBC (Auto) < 1.0 /HPF (0.0-6.0) 06/10/17 19:10 Amorphous Crystals Few 06/10/17 19:10 Urine Opiates Screen Presumptive negative 06/10/17 19:10 Urine Methadone Screen Presumptive negative 06/10/17 19:10 Ur Barbiturates Screen Presumptive negative 06/10/17 19:10 Ur Phencyclidine Scrn Presumptive negative 06/10/17 19:10 Ur Amphetamines Screen Presumptive negative 06/10/17 19:10 U Benzodiazepines Scrn Presumptive negative 06/10/17 19:10 Urine Cocaine Screen Presumptive negative 06/10/17 19:10 U Marijuana (THC) Screen Presumptive negative 06/10/17 19:10 Drugs of Abuse Note Disclamer 06/10/17 19:10 Plasma/Serum Alcohol < 0.01 % (0-0.07) 06/10/17 18:41
[2017-06-12] MEDS: HumuLIN R SUB-Q SCH (17:59)
[2017-06-13] MEDS: HumuLIN R SUB-Q SCH ×5 (00:02→22:36)
[2017-06-13] MEDS: MORPHINE IV PRN ×2 (03:57→23:43)
--- NOTE | 2017-06-13 09:29 | Progress Note ---
Assessment and Plan Severe sepsis Diabetic ketoacidosis. Toxic metabolic encephalopathy Acute kidney injury Hyperkalemia. Subjective Date of service: 06/13/17 Principal diagnosis: Sepsis, diabetic ketoacidosis, acute encephalopathy(toxic, metabolic) Objective Vital Signs - 12hr 06/13/17 06/13/17 05:56 07:24 Temperature 97.4 F L Pulse Rate 92 H Pulse Rate [ 90 From Monitor] Respiratory 16 18 Rate Blood Pressure 125/98 O2 Sat by Pulse 98 Oximetry CBC and BMP: 06/11/17 21:00 06/12/17 07:20 Abnormal lab findings: Abnormal Labs 06/10/17 06/10/17 06/10/17 18:41 18:41 18:41 WBC 22.4 H RBC 3.28 L Hgb 9.7 L Hct 34.5 L MCV 105 H MCHC 28 L RDW 15.8 H Plt Count 482 H Seg Neutrophils # Man 15.0 H Monocytes # (Manual) 1.3 H Basophils # (Manual) 0.2 H VBG pH Sodium 126 L D Potassium 6.1 H* D Chloride 82.1 L Carbon Dioxide < 2.0 L* D BUN 47 H Creatinine 1.9 H Glucose 1074 H* POC Glucose Hemoglobin A1c Lactic Acid 2.40 H* Calcium 8.2 L Phosphorus Magnesium Alkaline Phosphatase 282 H Total Protein 5.8 L Albumin 2.9 L 06/10/17 06/10/17 06/10/17 18:41 18:53 19:31 WBC RBC Hgb Hct MCV MCHC RDW Plt Count Seg Neutrophils # Man Monocytes # (Manual) Basophils # (Manual) VBG pH 6.793 L* Sodium Potassium Chloride Carbon Dioxide BUN Creatinine Glucose POC Glucose > 500 H Hemoglobin A1c Lactic Acid Calcium Phosphorus 10.20 H Magnesium 2.70 H Alkaline Phosphatase Total Protein Albumin 06/10/17 06/10/17 06/10/17 21:05 21:09 22:10 WBC RBC Hgb Hct MCV MCHC RDW Plt Count Seg Neutrophils # Man Monocytes # (Manual) Basophils # (Manual) VBG pH Sodium 135 L D Potassium Chloride 93.2 L Carbon Dioxide 3 L* BUN 42 H Creatinine 1.6 H Glucose 851 H* POC Glucose > 500 H > 500 H Hemoglobin A1c Lactic Acid Calcium 7.0 L Phosphorus Magnesium Alkaline Phosphatase Total Protein Albumin 06/10/17 06/10/17 06/11/17 23:03 23:17 00:39 WBC RBC Hgb Hct MCV MCHC RDW Plt Count Seg Neutrophils # Man Monocytes # (Manual) Basophils # (Manual) VBG pH Sodium 135 L Potassium Chloride 95.9 L Carbon Dioxide < 2.0 L* BUN 42 H Creatinine Glucose 722 H* POC Glucose 433 H > 500 H Hemoglobin A1c Lactic Acid Calcium 7.2 L Phosphorus Magnesium Alkaline Phosphatase Total Protein Albumin 06/11/17 06/11/17 06/11/17 00:49 00:49 01:29 WBC RBC Hgb Hct MCV MCHC RDW Plt Count Seg Neutrophils # Man Monocytes # (Manual) Basophils # (Manual) VBG pH Sodium Potassium Chloride Carbon Dioxide 5 L* BUN 40 H Creatinine Glucose 519 H* POC Glucose 361 H Hemoglobin A1c 9.0 H Lactic Acid Calcium 6.9 L Phosphorus 5.00 H D Magnesium Alkaline Phosphatase Total Protein Albumin 06/11/17 06/11/17 06/11/17 01:50 02:30 04:03 WBC RBC Hgb Hct MCV MCHC RDW Plt Count Seg Neutrophils # Man Monocytes # (Manual) Basophils # (Manual) VBG pH Sodium Potassium Chloride Carbon Dioxide 3 L* BUN 41 H Creatinine Glucose 433 H POC Glucose 392 H 286 H Hemoglobin A1c Lactic Acid Calcium 7.2 L Phosphorus Magnesium Alkaline Phosphatase Total Protein Albumin 06/11/17 06/11/17 06/11/17 04:17 04:46 05:29 WBC RBC Hgb Hct MCV MCHC RDW Plt Count Seg Neutrophils # Man Monocytes # (Manual) Basophils # (Manual) VBG pH Sodium Potassium Chloride 107.9 H Carbon Dioxide 5 L* BUN 40 H Creatinine Glucose 231 H POC Glucose 196 H 176 H Hemoglobin A1c Lactic Acid Calcium 7.3 L Phosphorus Magnesium Alkaline Phosphatase Total Protein Albumin 06/11/17 06/11/17 06/11/17 05:57 06:46 07:24 WBC RBC Hgb Hct MCV MCHC RDW Plt Count Seg Neutrophils # Man Monocytes # (Manual) Basophils # (Manual) VBG pH Sodium Potassium 3.5 L D Chloride Carbon Dioxide 12 L D BUN 37 H Creatinine Glucose 154 H POC Glucose 173 H 137 H Hemoglobin A1c Lactic Acid Calcium 7.2 L Phosphorus Magnesium Alkaline Phosphatase Total Protein Albumin 06/11/17 06/11/17 06/11/17 09:16 10:15 11:05 WBC RBC Hgb Hct MCV MCHC RDW Plt Count Seg Neutrophils # Man Monocytes # (Manual) Basophils # (Manual) VBG pH Sodium Potassium Chloride Carbon Dioxide 12 L BUN 36 H Creatinine Glucose 148 H POC Glucose 184 H 187 H Hemoglobin A1c Lactic Acid Calcium 7.5 L Phosphorus Magnesium Alkaline Phosphatase Total Protein Albumin 06/11/17 06/11/17 06/11/17 12:30 13:56 14:52 WBC RBC Hgb Hct MCV MCHC RDW Plt Count Seg Neutrophils # Man Monocytes # (Manual) Basophils # (Manual) VBG pH Sodium Potassium Chloride Carbon Dioxide BUN Creatinine Glucose POC Glucose 163 H 241 H 181 H Hemoglobin A1c Lactic Acid Calcium Phosphorus Magnesium Alkaline Phosphatase Total Protein Albumin 06/11/17 06/11/17 06/11/17 16:27 17:39 18:29 WBC RBC Hgb Hct MCV MCHC RDW Plt Count Seg Neutrophils # Man Monocytes # (Manual) Basophils # (Manual) VBG pH Sodium Potassium Chloride 110.0 H Carbon Dioxide 13 L BUN 35 H Creatinine Glucose POC Glucose 148 H 128 H Hemoglobin A1c Lactic Acid Calcium 7.3 L Phosphorus Magnesium Alkaline Phosphatase Total Protein Albumin 06/11/17 06/11/17 06/11/17 19:46 20:23 21:00 WBC RBC Hgb Hct MCV MCHC RDW Plt Count Seg Neutrophils # Man Monocytes # (Manual) Basophils # (Manual) VBG pH Sodium Potassium Chloride 108.3 H Carbon Dioxide 17 L BUN 33 H Creatinine Glucose 122 H POC Glucose 115 H 109 H Hemoglobin A1c Lactic Acid Calcium 7.5 L Phosphorus Magnesium Alkaline Phosphatase Total Protein Albumin 06/11/17 06/11/17 06/11/17 21:00 21:26 22:09 WBC RBC 2.84 L Hgb 8.7 L Hct 24.3 L D MCV MCHC 36 H RDW Plt Count Seg Neutrophils # Man Monocytes # (Manual) Basophils # (Manual) VBG pH Sodium Potassium Chloride Carbon Dioxide BUN Creatinine Glucose POC Glucose 151 H 160 H Hemoglobin A1c Lactic Acid Calcium Phosphorus Magnesium Alkaline Phosphatase Total Protein Albumin 06/11/17 06/12/17 06/12/17 23:29 00:00 01:29 WBC RBC Hgb Hct MCV MCHC RDW Plt Count Seg Neutrophils # Man Monocytes # (Manual) Basophils # (Manual) VBG pH Sodium Potassium Chloride Carbon Dioxide BUN Creatinine Glucose POC Glucose 135 H 131 H 135 H Hemoglobin A1c Lactic Acid Calcium Phosphorus Magnesium Alkaline Phosphatase Total Protein Albumin 06/12/17 06/12/1706/12/18 02:00 02:07 03:22 WBC RBC Hgb Hct MCV MCHC RDW Plt Count Seg Neutrophils # Man Monocytes # (Manual) Basophils # (Manual) VBG pH Sodium Potassium Chloride 108.9 H Carbon Dioxide 17 L BUN 30 H Creatinine Glucose 126 H POC Glucose 153 H 147 H Hemoglobin A1c Lactic Acid Calcium 7.2 L Phosphorus Magnesium Alkaline Phosphatase Total Protein Albumin 06/12/17 06/12/17 06/12/17 04:24 05:21 06:13 WBC RBC Hgb Hct MCV MCHC RDW Plt Count Seg Neutrophils # Man Monocytes # (Manual) Basophils # (Manual) VBG pH Sodium Potassium Chloride Carbon Dioxide BUN Creatinine Glucose POC Glucose 154 H 115 H 131 H Hemoglobin A1c Lactic Acid Calcium Phosphorus Magnesium Alkaline Phosphatase Total Protein Albumin 06/12/17 06/12/17 06/12/17 07:20 07:30 08:29 WBC RBC Hgb Hct MCV MCHC RDW Plt Count Seg Neutrophils # Man Monocytes # (Manual) Basophils # (Manual) VBG pH Sodium 135 L Potassium Chloride 110.5 H Carbon Dioxide 17 L BUN 25 H Creatinine Glucose 130 H POC Glucose 129 H 161 H Hemoglobin A1c Lactic Acid Calcium 7.7 L Phosphorus Magnesium Alkaline Phosphatase Total Protein Albumin 06/12/17 06/12/17 06/12/17 09:33 10:30 12:07 WBC RBC Hgb Hct MCV MCHC RDW Plt Count Seg Neutrophils # Man Monocytes # (Manual) Basophils # (Manual) VBG pH Sodium Potassium Chloride Carbon Dioxide BUN Creatinine Glucose POC Glucose 169 H 124 H 117 H Hemoglobin A1c Lactic Acid Calcium Phosphorus Magnesium Alkaline Phosphatase Total Protein Albumin 06/12/17 06/12/17 06/12/17 13:37 14:24 17:14 WBC RBC Hgb Hct MCV MCHC RDW Plt Count Seg Neutrophils # Man Monocytes # (Manual) Basophils # (Manual) VBG pH Sodium Potassium Chloride Carbon Dioxide BUN Creatinine Glucose POC Glucose 217 H 257 H 284 H Hemoglobin A1c Lactic Acid Calcium Phosphorus Magnesium Alkaline Phosphatase Total Protein Albumin 06/12/17 06/12/17 06/13/17 21:31 23:51 06:34 WBC RBC Hgb Hct MCV MCHC RDW Plt Count Seg Neutrophils # Man Monocytes # (Manual) Basophils # (Manual) VBG pH Sodium Potassium Chloride Carbon Dioxide BUN Creatinine Glucose POC Glucose 68 L 113 H 117 H Hemoglobin A1c Lactic Acid Calcium Phosphorus Magnesium Alkaline Phosphatase Total Protein Albumin
[2017-06-13] MEDS: HEPARIN SUB-Q SCH ×2 (10:43→21:55)
[2017-06-13] MEDS: PEPCID PO SCH ×2 (10:43→21:55)
[2017-06-13 11:17] LABS: Basophils % (Auto) 0.6 % (0.0-1.8); Eosinophils # (Auto) 0.1 K/mm3 (0.0-0.4); Eosinophils % (Auto) 4.2 % (0.0-4.3); Hematocrit 22.6 % (35.5-45.6); Hemoglobin 7.6 gm/dl (11.8-15.2); Lymphocytes # (Auto) 0.5 K/mm3 (1.2-5.4); Lymphocytes % (Auto) 17.3 % (13.4-35.0); Mean Corpuscular HGB Conc 34 % (32-34); Mean Corpuscular Hemoglobin 30 pg (28-32); Mean Corpuscular Volume 90 fl (84-94); Monocytes # (Auto) 0.2 K/mm3 (0.0-0.8); Platelet Count 107 K/mm3 (140-440); Red Blood Count 2.51 M/mm3 (3.65-5.03); Red Cell Distribution Width 15.3 % (13.2-15.2)
[2017-06-13 11:35] LABS: BUN/Creatinine Ratio 15; Blood Urea Nitrogen 20 mg/dL (9-20); Calcium 8.1 mg/dL (8.4-10.2); Hemolysis Index 2
--- NOTE | 2017-06-13 12:24 | Progress Note ---
History Interval history: Diabetic ketoacidosis. Resolved. Continue current medical management. Sepsis. Continue IV antibiotics of Zosyn and vancomycin. Follow-up blood cultures Toxic metabolic encephalopathy. Resolved. Etiology secondary to above. Continue to treat underlying causes. Acute kidney injury. Continue IV fluids. Follow-up BMP. Hyperkalemia. Etiology secondary to acute renal failure and DKA. Resolved Sepsis associated hypotension. Continue IV fluid hydration and monitor closely. DVT prophylaxis. Continue heparin every 12 hours. Disposition. Anticipate discharge in a.m. Hospitalist Physical - Constitutional Vitals: Temp Pulse Resp BP Pulse Ox 97.4 F L 92 H 18 125/98 98 06/13/17 07:24 06/13/17 10:00 06/13/17 07:27 06/13/17 07:24 06/13/17 07:24 General appearance: Present: no acute distress (thin) Results - Labs CBC & Chem 7: 06/13/17 11:05 06/13/17 11:05 Labs: Laboratory Last Values WBC 2.8 K/mm3 (4.5-11.0) L 06/13/17 11:05 RBC 2.51 M/mm3 (3.65-5.03) L 06/13/17 11:05 Hgb 7.6 gm/dl (11.8-15.2) L 06/13/17 11:05 Hct 22.6 % (35.5-45.6) L 06/13/17 11:05 MCV 90 fl (84-94) 06/13/17 11:05 MCH 30 pg (28-32) 06/13/17 11:05 MCHC 34 % (32-34) 06/13/17 11:05 RDW 15.3 % (13.2-15.2) H 06/13/17 11:05 Plt Count 107 K/mm3 (140-440) L 06/13/17 11:05 Lymph % (Auto) 17.3 % (13.4-35.0) 06/13/17 11:05 [place] % (Auto) 8.0 % (0.0-7.3) H 06/13/17 11:05 Eos % (Auto) 4.2 % (0.0-4.3) 06/13/17 11:05 Baso % (Auto) 0.6 % (0.0-1.8) 06/13/17 11:05 Lymph # 0.5 K/mm3 (1.2-5.4) L 06/13/17 11:05 [place] # 0.2 K/mm3 (0.0-0.8) 06/13/17 11:05 Eos # 0.1 K/mm3 (0.0-0.4) 06/13/17 11:05 Baso # 0.0 K/mm3 (0.0-0.1) 06/13/17 11:05 Add Manual Diff Complete 06/10/17 18:41 Total Counted 100 06/10/17 18:41 Seg Neutrophils % 69.9 % (40.0-70.0) 06/13/17 11:05 Seg Neuts % (Manual) 67.0 % (40.0-70.0) 06/10/17 18:41 Band Neutrophils % 5.0 % 06/10/17 18:41 Lymphocytes % (Manual) 20.0 % (13.4-35.0) 06/10/17 18:41 Reactive Lymphs % (Man) 0 % 06/10/17 18:41 Monocytes % (Manual) 6.0 % (0.0-7.3) 06/10/17 18:41 Eosinophils % (Manual) 0 % (0.0-4.3) 06/10/17 18:41 Basophils % (Manual) 1.0 % (0.0-1.8) 06/10/17 18:41 Metamyelocytes % 1.0 % 06/10/17 18:41 Myelocytes % 0 % 06/10/17 18:41 Promyelocytes % 0 % 06/10/17 18:41 Blast Cells % 0 % 06/10/17 18:41 Nucleated RBC % Not Reportable 06/10/17 18:41 Seg Neutrophils # 2.0 K/mm3 (1.8-7.7) 06/13/17 11:05 Seg Neutrophils # Man 15.0 K/mm3 (1.8-7.7) H 06/10/17 18:41 Band Neutrophils # 1.1 K/mm3 06/10/17 18:41 Lymphocytes # (Manual) 4.5 K/mm3 (1.2-5.4) 06/10/17 18:41 Abs React Lymphs (Man) 0.0 K/mm3 06/10/17 18:41 Monocytes # (Manual) 1.3 K/mm3 (0.0-0.8) H 06/10/17 18:41 Eosinophils # (Manual) 0.0 K/mm3 (0.0-0.4) 06/10/17 18:41 Basophils # (Manual) 0.2 K/mm3 (0.0-0.1) H 06/10/17 18:41 Metamyelocytes # 0.2 K/mm3 06/10/17 18:41 Myelocytes # 0.0 K/mm3 06/10/17 18:41 Promyelocytes # 0.0 K/mm3 06/10/17 18:41 Blast Cells # 0.0 K/mm3 06/10/17 18:41 WBC Morphology Not Reportable 06/10/17 18:41 Hypersegmented Neuts Not Reportable 06/10/17 18:41 Hyposegmented Neuts Not Reportable 06/10/17 18:41 Hypogranular Neuts Not Reportable 06/10/17 18:41 Smudge Cells Not Reportable 06/10/17 18:41 Toxic Granulation Not Reportable 06/10/17 18:41 Toxic Vacuolation Not Reportable 06/10/17 18:41 Dohle Bodies Not Reportable 06/10/17 18:41 Pelger-Huet Anomaly Not Reportable 06/10/17 18:41 Gloria Rods Not Reportable 06/10/17 18:41 Platelet Estimate Appears increased 06/10/17 18:41 Clumped Platelets Not Reportable 06/10/17 18:41 Plt Clumps, EDTA Not Reportable 06/10/17 18:41 Large Platelets 1+ 06/10/17 18:41 Giant Platelets Not Reportable 06/10/17 18:41 Platelet Satelliting Not Reportable 06/10/17 18:41 Plt Morphology Comment Not Reportable 06/10/17 18:41 RBC Morphology Not Reportable 06/10/17 18:41 Dimorphic RBCs Not Reportable 06/10/17 18:41 Polychromasia Not Reportable 06/10/17 18:41 Hypochromasia Not Reportable 06/10/17 18:41 Poikilocytosis 1+ 06/10/17 18:41 Anisocytosis 1+ 06/10/17 18:41 Microcytosis Not Reportable 06/10/17 18:41 Macrocytosis Not Reportable 06/10/17 18:41 Spherocytes Not Reportable 06/10/17 18:41 Pappenheimer Bodies Not Reportable 06/10/17 18:41 Sickle Cells Not Reportable 06/10/17 18:41 Target Cells Not Reportable 06/10/17 18:41 Tear Drop Cells Not Reportable 06/10/17 18:41 Ovalocytes Not Reportable 06/10/17 18:41 Helmet Cells Not Reportable 06/10/17 18:41 [place] Bodies Not Reportable 06/10/17 18:41 [place] Rings Not Reportable 06/10/17 18:41 [place] Cells Not Reportable 06/10/17 18:41 Bite Cells Not Reportable 06/10/17 18:41 Crenated Cell Not Reportable 06/10/17 18:41 Elliptocytes Not Reportable 06/10/17 18:41 Acanthocytes (Spur) Not Reportable 06/10/17 18:41 Rouleaux Not Reportable 06/10/17 18:41 Hemoglobin C Crystals Not Reportable 06/10/17 18:41 Schistocytes Not Reportable 06/10/17 18:41 Malaria parasites Not Reportable 06/10/17 18:41 Matt Bodies Not Reportable 06/10/17 18:41 Hem Pathologist Commnt No 06/10/17 18:41 VBG pH 6.793 (7.320-7.420) L* 06/10/17 18:41 Sodium 134 mmol/L (137-145) L 06/13/17 11:05 Potassium 4.5 mmol/L (3.6-5.0) 06/13/17 11:05 Chloride 105.2 mmol/L (98-107) 06/13/17 11:05 Carbon Dioxide 16 mmol/L (22-30) L 06/13/17 11:05 Anion Gap 17 mmol/L 06/13/17 11:05 BUN 20 mg/dL (9-20) 06/13/17 11:05 Creatinine 1.3 mg/dL (0.8-1.5) 06/13/17 11:05 Estimated GFR > 60 ml/min 06/13/17 11:05 BUN/Creatinine Ratio 15 % 06/13/17 11:05 Glucose 384 mg/dL (75-100) H 06/13/17 11:05 POC Glucose 117 (70-105) H 06/13/17 06:34 Hemoglobin A1c 9.0 % (4-6) H 06/11/17 00:49 Lactic Acid 2.40 mmol/L (0.7-2.0) H* 06/10/17 18:41 Calcium 8.1 mg/dL (8.4-10.2) L 06/13/17 11:05 Phosphorus 5.00 mg/dL (2.5-4.5) H D 06/11/17 00:49 Magnesium 1.80 mg/dL (1.7-2.3) 06/11/17 00:49 Total Bilirubin 0.20 mg/dL (0.1-1.2) 06/10/17 18:41 AST 15 units/L (5-40) 06/10/17 18:41 ALT 22 units/L (7-56) 06/10/17 18:41 Alkaline Phosphatase 282 units/L (35-129) H 06/10/17 18:41 Total Protein 5.8 g/dL (6.3-8.2) L 06/10/17 18:41 Albumin 2.9 g/dL (3.9-5) L 06/10/17 18:41 Albumin/Globulin Ratio 1.0 % 06/10/17 18:41 Urine Color Yellow (Yellow) 06/10/17 19:10 Urine Turbidity Clear (Clear) 06/10/17 19:10 Urine pH 5.0 (5.0-7.0) 06/10/17 19:10 Ur Specific [place] 1.016 (1.003-1.030) 06/10/17 19:10 Urine Protein 30 mg/dl mg/dL (Negative) 06/10/17 19:10 Urine Glucose (UA) >=500 mg/dL (Negative) 06/10/17 19:10 Urine Ketones 80 mg/dL (Negative) 06/10/17 19:10 Urine Blood Sm (Negative) 06/10/17 19:10 Urine Nitrite Neg (Negative) 06/10/17 19:10 Urine Bilirubin Neg (Negative) 06/10/17 19:10 Urine Urobilinogen < 2.0 mg/dL (<2.0) 06/10/17 19:10 Ur Leukocyte Esterase Neg (Negative) 06/10/17 19:10 Urine WBC (Auto) 1.0 /HPF (0.0-6.0) 06/10/17 19:10 Urine RBC (Auto) < 1.0 /HPF (0.0-6.0) 06/10/17 19:10 Amorphous Crystals Few 06/10/17 19:10 Urine Opiates Screen Presumptive negative 06/10/17 19:10 Urine Methadone Screen Presumptive negative 06/10/17 19:10 Ur Barbiturates Screen Presumptive negative 06/10/17 19:10 Ur Phencyclidine Scrn Presumptive negative 06/10/17 19:10 Ur Amphetamines Screen Presumptive negative 06/10/17 19:10 U Benzodiazepines Scrn Presumptive negative 06/10/17 19:10 Urine Cocaine Screen Presumptive negative 06/10/17 19:10 U Marijuana (THC) Screen Presumptive negative 06/10/17 19:10 Drugs of Abuse Note Disclamer 06/10/17 19:10 Plasma/Serum Alcohol < 0.01 % (0-0.07) 06/10/17 18:41
[2017-06-13] MEDS: SODIUM CHLORIDE FLUSH SYRINGE 10 ML IV SCH ×2 (12:54→21:55)
[2017-06-13] MEDS: PERCOCET 5/325 PO PRN (23:27)
[2017-06-14] MEDS: MORPHINE IV PRN ×4 (03:58→20:22)
[2017-06-14 06:37] LABS: Basophils % (Auto) 0.7 % (0.0-1.8); Eosinophils # (Auto) 0.1 K/mm3 (0.0-0.4); Eosinophils % (Auto) 3.2 % (0.0-4.3); Hematocrit 20.4 % (35.5-45.6); Lymphocytes # (Auto) 0.7 K/mm3 (1.2-5.4); Mean Corpuscular HGB Conc 34 % (32-34); Mean Corpuscular Hemoglobin 30 pg (28-32); Mean Corpuscular Volume 88 fl (84-94); Monocytes # (Auto) 0.2 K/mm3 (0.0-0.8); Monocytes % (Auto) 8.5 % (0.0-7.3); Platelet Count 121 K/mm3 (140-440); Red Blood Count 2.33 M/mm3 (3.65-5.03); Red Cell Distribution Width 14.6 % (13.2-15.2)
[2017-06-14 06:57] LABS: BUN/Creatinine Ratio 18; Blood Urea Nitrogen 18 mg/dL (9-20); Hemolysis Index 1
[2017-06-14] MEDS: HumuLIN R SUB-Q SCH ×4 (07:30→22:00)
--- NOTE | 2017-06-14 09:13 | Discharge Summary ---
Providers - Providers Date of Admission: 06/10/17 21:31 Date of discharge: 06/14/17 Attending physician: UMNDO RIGGS 06/10/17 21:41 Consult to Physician [CONS] Routine Comment: Consulting Provider: ERLINDA PARK Physician Instructions: Reason For Exam: CCU 06/10/17 23:57 Consult to Dietitian/Nutrition [CONS] Routine Physician Instructions: Reason For Exam: DKA Reason for Consult: Nutrition Recommendations Reason for Consult: Diet education 06/11/17 06:08 Consult to Physician [CONS] Routine Comment: Consulting Provider: ALLISON ALVAREZ Physician Instructions: Reason For Exam: port placement Primary care physician: [employer] Hospitalization Condition: Stable Hospital course: Patient is a 31-year-old male who presented to the emergency department with chest pain, shortness of breath and altered mental status. Patient was found to be in DKA which is likely the cause of his acute encephalopathy and was initiated on IV fluids and insulin drip. He was also found to be septic with an acute kidney injury, sepsis associated hypotension and hyperkalemia. He was initiated on IV antibiotics along with IV fluids after which he improved. During his hospital stay, patient was found to be anemic with a hemoglobin of 7 and was transfused with 1 unit PRBC after which his hemoglobin improved. Patient was clinically stable for discharge home. He is advised to follow-up with a retail sales associate bilingual for workup of his anemia and his primary care provider for management of his chronic conditions. Discharge diagnoses Diabetic ketoacidosis Sepsis Toxic metabolic encephalopathy Acute kidney injury Hyperkalemia Sepsis associated hypotension DVT prophylaxis Disposition: TO HOME OR SELFCARE Time spent for discharge: 32 minutes Core Measure Documentation - Palliative Care Palliative Care/ Comfort Measures: Not Applicable - Core Measures Any of the following diagnoses?: none Exam - Constitutional Vitals: Temp Pulse Resp BP Pulse Ox 98.4 F 99 H 16 136/95 97 06/14/17 08:45 06/14/17 08:45 06/14/17 08:45 06/14/17 08:45 06/14/17 08:45 General appearance: Present: no acute distress, well-nourished - EENT Eyes: Present: PERRL ENT: hearing intact, clear oral mucosa - Neck Neck: Present: supple, normal ROM - Respiratory Respiratory effort: normal Respiratory: bilateral: CTA - Cardiovascular Heart Sounds: Present: S1 & S2. Absent: rub, click - Extremities Extremities: pulses symmetrical, No edema Peripheral Pulses: within normal limits - Abdominal General gastrointestinal: Present: soft, non-tender, non-distended, normal bowel sounds - Integumentary Integumentary: Present: clear, warm, dry - Musculoskeletal Musculoskeletal: gait normal, strength equal bilaterally - Psychiatric Psychiatric: appropriate mood/affect, intact judgment & insight - Neurologic Neurologic: CNII-XII intact, moves all extremities Plan Diet: diabetic Follow up with: EVAN HUDSON MD [Staff Physician] - 7 Days PRIMARY CARE, [Primary Care Provider] - 3-5 Days [facility] [Provider Group] - 7 Days Prescriptions: Ferrous Sulfate [Feosol 325 MG tab] 325 mg PO TID #90 tablet
[2017-06-14] MEDS: PEPCID PO SCH ×2 (10:24→22:00)
[2017-06-14] MEDS: HEPARIN SUB-Q SCH (10:25)
[2017-06-14] MEDS: SODIUM CHLORIDE FLUSH SYRINGE 10 ML IV SCH ×2 (10:27→22:00)
[2017-06-14] MEDS ORDERED: NACL 0.9% 500 ML 500 ML IV ONE (12:00)
[2017-06-14] MEDS ORDERED: VANCOMYCIN/0.45 NS 1 GM/250 ML 1 GM/250 ML BAG IV SCH (16:00)
[2017-06-14] MEDS ORDERED: VANCOMYCIN PHARMACY TO DOSE IV SCH (16:00)
[2017-06-14 16:23] LABS: Hematocrit 27.2 % (35.5-45.6); Hemoglobin 9.2 gm/dl (11.8-15.2)
--- NOTE | 2017-06-14 18:44 | Progress Note ---
Assessment and Plan Severe sepsis Diabetic ketoacidosis. Toxic metabolic encephalopathy Acute kidney injury Hyperkalemia. Possible Staph Aureus line infection - ID consulted - empiric Vanc pending sensitivities - will likely need loger term IV Ab's - continue glycemic control withh SSI and lantus - will see prn at this point ....25' Subjective Date of service: 06/14/17 Principal diagnosis: Severe Sepsis; DKA; Acute encephalopathy(toxic-metabolic); Staph bacteremia Interval history: Patient is seen today for: Severe Sepsis; DKA; Acute encephalopathy(toxic- metabolic); Staph bacteremia Seen and examined at bedside; 24hour events reviewed; nursing and respiratory care staff consulted; no adverse overnight events reported to me; resting peacefully in bed; catheter tip culture with > 15CFU staph aureus; he remains somnolent but denies N/V/F/C Objective Vital Signs - 12hr 06/14/17 06/14/17 06/14/17 07:17 08:45 11:48 Temperature 98.4 F 98 F Pulse Rate 99 H 93 H Respiratory 16 20 Rate Blood Pressure 136/95 140/77 O2 Sat by Pulse 95 97 Oximetry 06/14/17 06/14/17 06/14/17 12:03 12:33 13:03 Temperature 98.1 F 98.1 F 97.8 F Pulse Rate 93 H 97 H 98 H Respiratory 20 20 20 Rate Blood Pressure 139/99 131/98 140/100 O2 Sat by Pulse 99 Oximetry 06/14/17 06/14/17 06/14/17 13:33 13:50 14:03 Temperature 97.6 F 97.6 F 98.1 F Pulse Rate 97 H 94 H 92 H Respiratory 20 16 20 Rate Blood Pressure 149/100 149/108 138/96 O2 Sat by Pulse 100 98 100 Oximetry 06/14/17 16:08 Temperature 97.3 F L Pulse Rate 94 H Respiratory 20 Rate Blood Pressure 155/111 O2 Sat by Pulse 96 Oximetry Constitutional: no acute distress, other (somnolent) Eyes: non-icteric ENT: oropharynx moist Neck: supple, no lymphadenopathy, no JVD Effort: normal Ascultation: Bilateral: clear Percussion: Bilateral: not dull Cardiovascular: regular rate and rhythm Gastrointestinal: normoactive bowel sounds, soft, non-tender, non-distended Integumentary: normal Extremities: no cyanosis, no edema, pink and warm, pulses normal Neurologic: normal mental status, non-focal exam, pupils equal and round, CN II- XII normal Psychiatric: mood appropriate, affect normal CBC and BMP: 06/15/17 05:33 06/15/17 05:33 Abnormal lab findings: Abnormal Labs 06/10/17 06/10/17 06/10/17 18:41 18:41 18:41 WBC 22.4 H RBC 3.28 L Hgb 9.7 L Hct 34.5 L MCV 105 H MCHC 28 L RDW 15.8 H Plt Count 482 H [place] % (Auto) Lymph # Seg Neutrophils # Man 15.0 H Monocytes # (Manual) 1.3 H Basophils # (Manual) 0.2 H VBG pH Sodium 126 L D Potassium 6.1 H* D Chloride 82.1 L Carbon Dioxide < 2.0 L* D BUN 47 H Creatinine 1.9 H Glucose 1074 H* POC Glucose Hemoglobin A1c Lactic Acid 2.40 H* Calcium 8.2 L Phosphorus Magnesium Alkaline Phosphatase 282 H Total Protein 5.8 L Albumin 2.9 L Crossmatch 06/10/17 06/10/17 06/10/17 18:41 18:53 19:31 WBC RBC Hgb Hct MCV MCHC RDW Plt Count [place] % (Auto) Lymph # Seg Neutrophils # Man Monocytes # (Manual) Basophils # (Manual) VBG pH 6.793 L* Sodium Potassium Chloride Carbon Dioxide BUN Creatinine Glucose POC Glucose > 500 H Hemoglobin A1c Lactic Acid Calcium Phosphorus 10.20 H Magnesium 2.70 H Alkaline Phosphatase Total Protein Albumin Crossmatch 06/10/17 06/10/17 06/10/17 21:05 21:09 22:10 WBC RBC Hgb Hct MCV MCHC RDW Plt Count [place] % (Auto) Lymph # Seg Neutrophils # Man Monocytes # (Manual) Basophils # (Manual) VBG pH Sodium 135 L D Potassium Chloride 93.2 L Carbon Dioxide 3 L* BUN 42 H Creatinine 1.6 H Glucose 851 H* POC Glucose > 500 H > 500 H Hemoglobin A1c Lactic Acid Calcium 7.0 L Phosphorus Magnesium Alkaline Phosphatase Total Protein Albumin Crossmatch 06/10/17 06/10/17 06/11/17 23:03 23:17 00:39 WBC RBC Hgb Hct MCV MCHC RDW Plt Count [place] % (Auto) Lymph # Seg Neutrophils # Man Monocytes # (Manual) Basophils # (Manual) VBG pH Sodium 135 L Potassium Chloride 95.9 L Carbon Dioxide < 2.0 L* BUN 42 H Creatinine Glucose 722 H* POC Glucose 433 H > 500 H Hemoglobin A1c Lactic Acid Calcium 7.2 L Phosphorus Magnesium Alkaline Phosphatase Total Protein Albumin Crossmatch 06/11/17 06/11/17 06/11/17 00:49 00:49 01:29 WBC RBC Hgb Hct MCV MCHC RDW Plt Count [place] % (Auto) Lymph # Seg Neutrophils # Man Monocytes # (Manual) Basophils # (Manual) VBG pH Sodium Potassium Chloride Carbon Dioxide 5 L* BUN 40 H Creatinine Glucose 519 H* POC Glucose 361 H Hemoglobin A1c 9.0 H Lactic Acid Calcium 6.9 L Phosphorus 5.00 H D Magnesium Alkaline Phosphatase Total Protein Albumin Crossmatch 06/11/17 06/11/17 06/11/17 01:50 02:30 04:03 WBC RBC Hgb Hct MCV MCHC RDW Plt Count [place] % (Auto) Lymph # Seg Neutrophils # Man Monocytes # (Manual) Basophils # (Manual) VBG pH Sodium Potassium Chloride Carbon Dioxide 3 L* BUN 41 H Creatinine Glucose 433 H POC Glucose 392 H 286 H Hemoglobin A1c Lactic Acid Calcium 7.2 L Phosphorus Magnesium Alkaline Phosphatase Total Protein Albumin Crossmatch 06/11/17 06/11/17 06/11/17 04:17 04:46 05:29 WBC RBC Hgb Hct MCV MCHC RDW Plt Count [place] % (Auto) Lymph # Seg Neutrophils # Man Monocytes # (Manual) Basophils # (Manual) VBG pH Sodium Potassium Chloride 107.9 H Carbon Dioxide 5 L* BUN 40 H Creatinine Glucose 231 H POC Glucose 196 H 176 H Hemoglobin A1c Lactic Acid Calcium 7.3 L Phosphorus Magnesium Alkaline Phosphatase Total Protein Albumin Crossmatch 06/11/17 06/11/17 06/11/17 05:57 06:46 07:24 WBC RBC Hgb Hct MCV MCHC RDW Plt Count [place] % (Auto) Lymph # Seg Neutrophils # Man Monocytes # (Manual) Basophils # (Manual) VBG pH Sodium Potassium 3.5 L D Chloride Carbon Dioxide 12 L D BUN 37 H Creatinine Glucose 154 H POC Glucose 173 H 137 H Hemoglobin A1c Lactic Acid Calcium 7.2 L Phosphorus Magnesium Alkaline Phosphatase Total Protein Albumin Crossmatch 06/11/17 06/11/1706/11/18 09:16 10:15 11:05 WBC RBC Hgb Hct MCV MCHC RDW Plt Count [place] % (Auto) Lymph # Seg Neutrophils # Man Monocytes # (Manual) Basophils # (Manual) VBG pH Sodium Potassium Chloride Carbon Dioxide 12 L BUN 36 H Creatinine Glucose 148 H POC Glucose 184 H 187 H Hemoglobin A1c Lactic Acid Calcium 7.5 L Phosphorus Magnesium Alkaline Phosphatase Total Protein Albumin Crossmatch 06/11/17 06/11/17 06/11/17 12:30 13:56 14:52 WBC RBC Hgb Hct MCV MCHC RDW Plt Count [place] % (Auto) Lymph # Seg Neutrophils # Man Monocytes # (Manual) Basophils # (Manual) VBG pH Sodium Potassium Chloride Carbon Dioxide BUN Creatinine Glucose POC Glucose 163 H 241 H 181 H Hemoglobin A1c Lactic Acid Calcium Phosphorus Magnesium Alkaline Phosphatase Total Protein Albumin Crossmatch 06/11/17 06/11/17 06/11/17 16:27 17:39 18:29 WBC RBC Hgb Hct MCV MCHC RDW Plt Count [place] % (Auto) Lymph # Seg Neutrophils # Man Monocytes # (Manual) Basophils # (Manual) VBG pH Sodium Potassium Chloride 110.0 H Carbon Dioxide 13 L BUN 35 H Creatinine Glucose POC Glucose 148 H 128 H Hemoglobin A1c Lactic Acid Calcium 7.3 L Phosphorus Magnesium Alkaline Phosphatase Total Protein Albumin Crossmatch 06/11/17 06/11/17 06/11/17 19:46 20:23 21:00 WBC RBC Hgb Hct MCV MCHC RDW Plt Count [place] % (Auto) Lymph # Seg Neutrophils # Man Monocytes # (Manual) Basophils # (Manual) VBG pH Sodium Potassium Chloride 108.3 H Carbon Dioxide 17 L BUN 33 H Creatinine Glucose 122 H POC Glucose 115 H 109 H Hemoglobin A1c Lactic Acid Calcium 7.5 L Phosphorus Magnesium Alkaline Phosphatase Total Protein Albumin Crossmatch 06/11/17 06/11/17 06/11/17 21:00 21:26 22:09 WBC RBC 2.84 L Hgb 8.7 L Hct 24.3 L D MCV MCHC 36 H RDW Plt Count [place] % (Auto) Lymph # Seg Neutrophils # Man Monocytes # (Manual) Basophils # (Manual) VBG pH Sodium Potassium Chloride Carbon Dioxide BUN Creatinine Glucose POC Glucose 151 H 160 H Hemoglobin A1c Lactic Acid Calcium Phosphorus Magnesium Alkaline Phosphatase Total Protein Albumin Crossmatch 06/11/17 06/12/17 06/12/17 23:29 00:00 01:29 WBC RBC Hgb Hct MCV MCHC RDW Plt Count [place] % (Auto) Lymph # Seg Neutrophils # Man Monocytes # (Manual) Basophils # (Manual) VBG pH Sodium Potassium Chloride Carbon Dioxide BUN Creatinine Glucose POC Glucose 135 H 131 H 135 H Hemoglobin A1c Lactic Acid Calcium Phosphorus Magnesium Alkaline Phosphatase Total Protein Albumin Crossmatch 06/12/17 06/12/17 06/12/17 02:00 02:07 03:22 WBC RBC Hgb Hct MCV MCHC RDW Plt Count [place] % (Auto) Lymph # Seg Neutrophils # Man Monocytes # (Manual) Basophils # (Manual) VBG pH Sodium Potassium Chloride 108.9 H Carbon Dioxide 17 L BUN 30 H Creatinine Glucose 126 H POC Glucose 153 H 147 H Hemoglobin A1c Lactic Acid Calcium 7.2 L Phosphorus Magnesium Alkaline Phosphatase Total Protein Albumin Crossmatch 06/12/17 06/12/17 06/12/17 04:24 05:21 06:13 WBC RBC Hgb Hct MCV MCHC RDW Plt Count [place] % (Auto) Lymph # Seg Neutrophils # Man Monocytes # (Manual) Basophils # (Manual) VBG pH Sodium Potassium Chloride Carbon Dioxide BUN Creatinine Glucose POC Glucose 154 H 115 H 131 H Hemoglobin A1c Lactic Acid Calcium Phosphorus Magnesium Alkaline Phosphatase Total Protein Albumin Crossmatch 06/12/17 06/12/17 06/12/17 07:20 07:30 08:29 WBC RBC Hgb Hct MCV MCHC RDW Plt Count [place] % (Auto) Lymph # Seg Neutrophils # Man Monocytes # (Manual) Basophils # (Manual) VBG pH Sodium 135 L Potassium Chloride 110.5 H Carbon Dioxide 17 L BUN 25 H Creatinine Glucose 130 H POC Glucose 129 H 161 H Hemoglobin A1c Lactic Acid Calcium 7.7 L Phosphorus Magnesium Alkaline Phosphatase Total Protein Albumin Crossmatch 06/12/17 06/12/17 06/12/17 09:33 10:30 12:07 WBC RBC Hgb Hct MCV MCHC RDW Plt Count [place] % (Auto) Lymph # Seg Neutrophils # Man Monocytes # (Manual) Basophils # (Manual) VBG pH Sodium Potassium Chloride Carbon Dioxide BUN Creatinine Glucose POC Glucose 169 H 124 H 117 H Hemoglobin A1c Lactic Acid Calcium Phosphorus Magnesium Alkaline Phosphatase Total Protein Albumin Crossmatch 06/12/17 06/12/17 06/12/17 13:37 14:24 17:14 WBC RBC Hgb Hct MCV MCHC RDW Plt Count [place] % (Auto) Lymph # Seg Neutrophils # Man Monocytes # (Manual) Basophils # (Manual) VBG pH Sodium Potassium Chloride Carbon Dioxide BUN Creatinine Glucose POC Glucose 217 H 257 H 284 H Hemoglobin A1c Lactic Acid Calcium Phosphorus Magnesium Alkaline Phosphatase Total Protein Albumin Crossmatch 06/12/17 06/12/17 06/13/17 21:31 23:51 06:34 WBC RBC Hgb Hct MCV MCHC RDW Plt Count [place] % (Auto) Lymph # Seg Neutrophils # Man Monocytes # (Manual) Basophils # (Manual) VBG pH Sodium Potassium Chloride Carbon Dioxide BUN Creatinine Glucose POC Glucose 68 L 113 H 117 H Hemoglobin A1c Lactic Acid Calcium Phosphorus Magnesium Alkaline Phosphatase Total Protein Albumin Crossmatch 06/13/17 06/13/17 06/13/17 11:05 11:05 11:53 WBC 2.8 L RBC 2.51 L Hgb 7.6 L Hct 22.6 L MCV MCHC RDW 15.3 H Plt Count 107 L [place] % (Auto) 8.0 H Lymph # 0.5 L Seg Neutrophils # Man Monocytes # (Manual) Basophils # (Manual) VBG pH Sodium 134 L Potassium Chloride Carbon Dioxide 16 L BUN Creatinine Glucose 384 H POC Glucose 416 H Hemoglobin A1c Lactic Acid Calcium 8.1 L Phosphorus Magnesium Alkaline Phosphatase Total Protein Albumin Crossmatch 06/13/17 06/13/17 06/13/17 16:24 21:30 22:20 WBC RBC Hgb Hct MCV MCHC RDW Plt Count [place] % (Auto) Lymph # Seg Neutrophils # Man Monocytes # (Manual) Basophils # (Manual) VBG pH Sodium Potassium Chloride Carbon Dioxide BUN Creatinine Glucose POC Glucose 238 H 40 L 157 H Hemoglobin A1c Lactic Acid Calcium Phosphorus Magnesium Alkaline Phosphatase Total Protein Albumin Crossmatch 06/14/17 06/14/17 06/14/17 05:55 05:55 05:55 WBC 2.8 L RBC 2.33 L Hgb 7.0 L Hct 20.4 L MCV MCHC RDW Plt Count 121 L [place] % (Auto) 8.5 H Lymph # 0.7 L Seg Neutrophils # Man Monocytes # (Manual) Basophils # (Manual) VBG pH Sodium Potassium Chloride Carbon Dioxide 19 L BUN Creatinine Glucose 124 H 130 H POC Glucose Hemoglobin A1c Lactic Acid Calcium 8.0 L Phosphorus Magnesium Alkaline Phosphatase Total Protein Albumin Crossmatch 06/14/17 06/14/1706/14/18 06:40 09:13 11:45 WBC RBC Hgb Hct MCV MCHC RDW Plt Count [place] % (Auto) Lymph # Seg Neutrophils # Man Monocytes # (Manual) Basophils # (Manual) VBG pH Sodium Potassium Chloride Carbon Dioxide BUN Creatinine Glucose POC Glucose 170 H 166 H Hemoglobin A1c Lactic Acid Calcium Phosphorus Magnesium Alkaline Phosphatase Total Protein Albumin Crossmatch See Detail 06/14/17 06/14/17 15:35 16:14 WBC RBC Hgb 9.2 L Hct 27.2 L D MCV MCHC RDW Plt Count [place] % (Auto) Lymph # Seg Neutrophils # Man Monocytes # (Manual) Basophils # (Manual) VBG pH Sodium Potassium Chloride Carbon Dioxide BUN Creatinine Glucose POC Glucose 164 H Hemoglobin A1c Lactic Acid Calcium Phosphorus Magnesium Alkaline Phosphatase Total Protein Albumin Crossmatch Allied health notes reviewed: social work
[2017-06-15] MEDS: MORPHINE IV PRN ×4 (00:37→20:15)
[2017-06-15] MEDS: VANCOMYCIN 750 MG in NACL 0.9% 250ML 250 ML IV SCH ×2 (04:00→16:44)
[2017-06-15 06:18] LABS: Basophils % (Auto) 0.6 % (0.0-1.8); Eosinophils # (Auto) 0.1 K/mm3 (0.0-0.4); Eosinophils % (Auto) 2.8 % (0.0-4.3); Hematocrit 26.9 % (35.5-45.6); Hemoglobin 9.5 gm/dl (11.8-15.2); Lymphocytes # (Auto) 0.6 K/mm3 (1.2-5.4); Lymphocytes % (Auto) 15.5 % (13.4-35.0); Mean Corpuscular HGB Conc 35 % (32-34); Mean Corpuscular Hemoglobin 31 pg (28-32); Mean Corpuscular Volume 87 fl (84-94); Monocytes # (Auto) 0.3 K/mm3 (0.0-0.8); Monocytes % (Auto) 7.3 % (0.0-7.3); Platelet Count 132 K/mm3 (140-440); Red Blood Count 3.08 M/mm3 (3.65-5.03)
[2017-06-15 06:41] LABS: BUN/Creatinine Ratio 15; Blood Urea Nitrogen 16 mg/dL (9-20); Calcium 8.3 mg/dL (8.4-10.2); Hemolysis Index 2
[2017-06-15] MEDS: HumuLIN R SUB-Q SCH ×4 (07:44→22:32)
--- NOTE | 2017-06-15 09:13 | Progress Note ---
Assessment and Plan Assessment and plan: Diabetic ketoacidosis. Resolved. Continue current medical management. Sepsis. Continue IV antibiotics of Zosyn and vancomycin. Catheter culture grew staph aureus, ID consulted, awaiting sensitivity Toxic metabolic encephalopathy. Resolved. Etiology secondary to above. Continue to treat underlying causes. Acute kidney injury. Continue IV fluids. Follow-up BMP. Hyperkalemia. Etiology secondary to acute renal failure and DKA. Resolved Anemia. Transfused with 1 unit PRBC, will continue to follow, GI consult Hypertension Norvasc initiated, Hydralazine PRN Sepsis associated hypotension. Continue IV fluid hydration and monitor closely. DVT prophylaxis. Continue heparin every 12 hours. History Interval history: No new issues overnight, labs and nursing notes reviewed Hospitalist Physical - Constitutional Vitals: Temp Pulse Resp BP Pulse Ox 97.8 F 99 H 20 151/109 98 06/15/17 07:34 06/15/17 07:34 06/15/17 07:34 06/15/17 07:34 06/15/17 07:34 General appearance: Present: no acute distress, well-nourished - EENT Eyes: Present: PERRL, EOM intact ENT: hearing intact, clear oral mucosa - Neck Neck: Present: supple, normal ROM - Respiratory Respiratory effort: normal Respiratory: bilateral: CTA - Cardiovascular Rhythm: regular Heart Sounds: Present: S1 & S2 - Extremities Extremities: no ischemia, No edema, normal temperature - Abdominal General gastrointestinal: soft, non-tender, non-distended - Integumentary Integumentary: Present: clear, warm, dry Results - Labs CBC & Chem 7: 06/15/17 05:33 06/15/17 05:33 Labs: Laboratory Last Values WBC 4.0 K/mm3 (4.5-11.0) L 06/15/17 05:33 RBC 3.08 M/mm3 (3.65-5.03) L 06/15/17 05:33 Hgb 9.5 gm/dl (11.8-15.2) L 06/15/17 05:33 Hct 26.9 % (35.5-45.6) L 06/15/17 05:33 MCV 87 fl (84-94) 06/15/17 05:33 MCH 31 pg (28-32) 06/15/17 05:33 MCHC 35 % (32-34) H 06/15/17 05:33 RDW 14.0 % (13.2-15.2) 06/15/17 05:33 Plt Count 132 K/mm3 (140-440) L 06/15/17 05:33 Lymph % (Auto) 15.5 % (13.4-35.0) 06/15/17 05:33 [place] % (Auto) 7.3 % (0.0-7.3) 06/15/17 05:33 Eos % (Auto) 2.8 % (0.0-4.3) 06/15/17 05:33 Baso % (Auto) 0.6 % (0.0-1.8) 06/15/17 05:33 Lymph # 0.6 K/mm3 (1.2-5.4) L 06/15/17 05:33 [place] # 0.3 K/mm3 (0.0-0.8) 06/15/17 05:33 Eos # 0.1 K/mm3 (0.0-0.4) 06/15/17 05:33 Baso # 0.0 K/mm3 (0.0-0.1) 06/15/17 05:33 Add Manual Diff Complete 06/10/17 18:41 Total Counted 100 06/10/17 18:41 Seg Neutrophils % 73.8 % (40.0-70.0) H 06/15/17 05:33 Seg Neuts % (Manual) 67.0 % (40.0-70.0) 06/10/17 18:41 Band Neutrophils % 5.0 % 06/10/17 18:41 Lymphocytes % (Manual) 20.0 % (13.4-35.0) 06/10/17 18:41 Reactive Lymphs % (Man) 0 % 06/10/17 18:41 Monocytes % (Manual) 6.0 % (0.0-7.3) 06/10/17 18:41 Eosinophils % (Manual) 0 % (0.0-4.3) 06/10/17 18:41 Basophils % (Manual) 1.0 % (0.0-1.8) 06/10/17 18:41 Metamyelocytes % 1.0 % 06/10/17 18:41 Myelocytes % 0 % 06/10/17 18:41 Promyelocytes % 0 % 06/10/17 18:41 Blast Cells % 0 % 06/10/17 18:41 Nucleated RBC % Not Reportable 06/10/17 18:41 Seg Neutrophils # 2.9 K/mm3 (1.8-7.7) 06/15/17 05:33 Seg Neutrophils # Man 15.0 K/mm3 (1.8-7.7) H 06/10/17 18:41 Band Neutrophils # 1.1 K/mm3 06/10/17 18:41 Lymphocytes # (Manual) 4.5 K/mm3 (1.2-5.4) 06/10/17 18:41 Abs React Lymphs (Man) 0.0 K/mm3 06/10/17 18:41 Monocytes # (Manual) 1.3 K/mm3 (0.0-0.8) H 06/10/17 18:41 Eosinophils # (Manual) 0.0 K/mm3 (0.0-0.4) 06/10/17 18:41 Basophils # (Manual) 0.2 K/mm3 (0.0-0.1) H 06/10/17 18:41 Metamyelocytes # 0.2 K/mm3 06/10/17 18:41 Myelocytes # 0.0 K/mm3 06/10/17 18:41 Promyelocytes # 0.0 K/mm3 06/10/17 18:41 Blast Cells # 0.0 K/mm3 06/10/17 18:41 WBC Morphology Not Reportable 06/10/17 18:41 Hypersegmented Neuts Not Reportable 06/10/17 18:41 Hyposegmented Neuts Not Reportable 06/10/17 18:41 Hypogranular Neuts Not Reportable 06/10/17 18:41 Smudge Cells Not Reportable 06/10/17 18:41 Toxic Granulation Not Reportable 06/10/17 18:41 Toxic Vacuolation Not Reportable 06/10/17 18:41 Dohle Bodies Not Reportable 06/10/17 18:41 Pelger-Huet Anomaly Not Reportable 06/10/17 18:41 Gloria Rods Not Reportable 06/10/17 18:41 Platelet Estimate Appears increased 06/10/17 18:41 Clumped Platelets Not Reportable 06/10/17 18:41 Plt Clumps, EDTA Not Reportable 06/10/17 18:41 Large Platelets 1+ 06/10/17 18:41 Giant Platelets Not Reportable 06/10/17 18:41 Platelet Satelliting Not Reportable 06/10/17 18:41 Plt Morphology Comment Not Reportable 06/10/17 18:41 RBC Morphology Not Reportable 06/10/17 18:41 Dimorphic RBCs Not Reportable 06/10/17 18:41 Polychromasia Not Reportable 06/10/17 18:41 Hypochromasia Not Reportable 06/10/17 18:41 Poikilocytosis 1+ 06/10/17 18:41 Anisocytosis 1+ 06/10/17 18:41 Microcytosis Not Reportable 06/10/17 18:41 Macrocytosis Not Reportable 06/10/17 18:41 Spherocytes Not Reportable 06/10/17 18:41 Pappenheimer Bodies Not Reportable 06/10/17 18:41 Sickle Cells Not Reportable 06/10/17 18:41 Target Cells Not Reportable 06/10/17 18:41 Tear Drop Cells Not Reportable 06/10/17 18:41 Ovalocytes Not Reportable 06/10/17 18:41 Helmet Cells Not Reportable 06/10/17 18:41 [place] Bodies Not Reportable 06/10/17 18:41 [place] Rings Not Reportable 06/10/17 18:41 [place] Cells Not Reportable 06/10/17 18:41 Bite Cells Not Reportable 06/10/17 18:41 Crenated Cell Not Reportable 06/10/17 18:41 Elliptocytes Not Reportable 06/10/17 18:41 Acanthocytes (Spur) Not Reportable 06/10/17 18:41 Rouleaux Not Reportable 06/10/17 18:41 Hemoglobin C Crystals Not Reportable 06/10/17 18:41 Schistocytes Not Reportable 06/10/17 18:41 Malaria parasites Not Reportable 06/10/17 18:41 Matt Bodies Not Reportable 06/10/17 18:41 Hem Pathologist Commnt No 06/10/17 18:41 VBG pH 6.793 (7.320-7.420) L* 06/10/17 18:41 Sodium 137 mmol/L (137-145) 06/15/17 05:33 Potassium 4.1 mmol/L (3.6-5.0) 06/15/17 05:33 Chloride 102.5 mmol/L (98-107) 06/15/17 05:33 Carbon Dioxide 20 mmol/L (22-30) L 06/15/17 05:33 Anion Gap 19 mmol/L 06/15/17 05:33 BUN 16 mg/dL (9-20) 06/15/17 05:33 Creatinine 1.1 mg/dL (0.8-1.5) 06/15/17 05:33 Estimated GFR > 60 ml/min 06/15/17 05:33 BUN/Creatinine Ratio 15 % 06/15/17 05:33 Glucose 228 mg/dL (75-100) H 06/15/17 05:33 POC Glucose 300 (70-105) H 06/15/17 06:33 Hemoglobin A1c 9.0 % (4-6) H 06/11/17 00:49 Lactic Acid 2.40 mmol/L (0.7-2.0) H* 06/10/17 18:41 Calcium 8.3 mg/dL (8.4-10.2) L 06/15/17 05:33 Phosphorus 5.00 mg/dL (2.5-4.5) H D 06/11/17 00:49 Magnesium 1.80 mg/dL (1.7-2.3) 06/11/17 00:49 Total Bilirubin 0.20 mg/dL (0.1-1.2) 06/10/17 18:41 AST 15 units/L (5-40) 06/10/17 18:41 ALT 22 units/L (7-56) 06/10/17 18:41 Alkaline Phosphatase 282 units/L (35-129) H 06/10/17 18:41 Total Protein 5.8 g/dL (6.3-8.2) L 06/10/17 18:41 Albumin 2.9 g/dL (3.9-5) L 06/10/17 18:41 Albumin/Globulin Ratio 1.0 % 06/10/17 18:41 Urine Color Yellow (Yellow) 06/10/17 19:10 Urine Turbidity Clear (Clear) 06/10/17 19:10 Urine pH 5.0 (5.0-7.0) 06/10/17 19:10 Ur Specific [place] 1.016 (1.003-1.030) 06/10/17 19:10 Urine Protein 30 mg/dl mg/dL (Negative) 06/10/17 19:10 Urine Glucose (UA) >=500 mg/dL (Negative) 06/10/17 19:10 Urine Ketones 80 mg/dL (Negative) 06/10/17 19:10 Urine Blood Sm (Negative) 06/10/17 19:10 Urine Nitrite Neg (Negative) 06/10/17 19:10 Urine Bilirubin Neg (Negative) 06/10/17 19:10 Urine Urobilinogen < 2.0 mg/dL (<2.0) 06/10/17 19:10 Ur Leukocyte Esterase Neg (Negative) 06/10/17 19:10 Urine WBC (Auto) 1.0 /HPF (0.0-6.0) 06/10/17 19:10 Urine RBC (Auto) < 1.0 /HPF (0.0-6.0) 06/10/17 19:10 Amorphous Crystals Few 06/10/17 19:10 Urine Opiates Screen Presumptive negative 06/10/17 19:10 Urine Methadone Screen Presumptive negative 06/10/17 19:10 Ur Barbiturates Screen Presumptive negative 06/10/17 19:10 Ur Phencyclidine Scrn Presumptive negative 06/10/17 19:10 Ur Amphetamines Screen Presumptive negative 06/10/17 19:10 U Benzodiazepines Scrn Presumptive negative 06/10/17 19:10 Urine Cocaine Screen Presumptive negative 06/10/17 19:10 U Marijuana (THC) Screen Presumptive negative 06/10/17 19:10 Drugs of Abuse Note Disclamer 06/10/17 19:10 Plasma/Serum Alcohol < 0.01 % (0-0.07) 06/10/17 18:41 Blood Type A POSITIVE 06/14/17 09:13 Antibody Screen Negative 06/14/17 09:13 Crossmatch See Detail 06/14/17 09:13
[2017-06-15] MEDS: HEPARIN SUB-Q SCH ×3 (11:07→22:08)
[2017-06-15] MEDS: SODIUM CHLORIDE FLUSH SYRINGE 10 ML IV SCH ×2 (11:08→22:11)
[2017-06-15] MEDS: PEPCID PO SCH ×2 (11:08→22:07)
--- NOTE | 2017-06-15 13:19 | Consultation ---
PULMONARY CONSULT NOTE CONSULTING PHYSICIAN: . REASON FOR CONSULTATION: Diabetic ketoacidosis, need for ICU admission for IV insulin therapy. CHIEF COMPLAINT AND HISTORY OF PRESENT ILLNESS: As follows: The patient is a 31-year-old male with a history of medication noncompliance, who presented in the Emergency Room secondary to essentially in acute encephalopathy. He has a history of poorly controlled diabetes, very noncompliant, has frequent ICU admissions, most recently signed himself against medical advice out of the hospital. In the ER, his evaluation was consistent with a severe metabolic acidosis with diabetic ketoacidosis and ICU admission was requested. When I stopped by to see him in the Intensive Care Unit, he remained on IV insulin drip. I think it was going about 4 units per hour at that time. Blood pressure was a little bit better. He had been hypotensive earlier. He was already beginning to ask to want to go home despite his sepsis syndrome and being on vasopressors. He denied any nausea or vomiting at the time I was seeing him. He denied any before coming to the hospital. He could not tell me why he was not taking his medications. He denied any overt aspiration at home. He denied any fevers or chills. He denied any chest pains. He denies any open wounds or sores on his body. With regards to tobacco use or abuse, he denies any history of tobacco use or abuse whatsoever. This really is as much of the history of presentation as I have. PAST MEDICAL HISTORY: 1. Diabetes type 1, insulin-dependent. 2. Medication noncompliant. 3. History of staphylococcal infections on his upper back, I believe in the past. 4. History of hypertension. PAST SURGICAL HISTORY: Has been wound debridement for the neck and the back. MEDICATIONS: He was on at the time when I stopped by to see him were reviewed and included Tylenol 650 mg p.o. q.4h. p.r.n. He was on the IV insulin therapy. He was on morphine 2 mg IV q.4h. p.r.n. moderate pain. ALLERGIES: CODEINE ZOFRAN, HYDROCODONE. Nature of these allergies are unknown. DIET: Petite gentleman, acute weight loss or gain history is unknown. FAMILY AND SOCIAL HISTORY: Apparently lives in the community. Denies alcohol, tobacco, or illicit drug use or abuse. He does not know if there is a family history of diabetes. REVIEW OF SYSTEMS: Difficult to obtain secondary to the patient's medical and mental condition. Since he had been in the hospital, no gross hematochezia or melena, no gross hematuria, no hematemesis, no emesis, no hemoptysis, no palpitations. No witnessed seizures. Review of systems is otherwise as in the body of the history above or essentially unobtainable. PHYSICAL EXAMINATION: VITAL SIGNS: At presentation in the emergency room, he was afebrile, temperature was 98.1 degrees Fahrenheit rectally, pulse 74, respiratory rate 26, blood pressure was 98/41 and dropped soon to 78/36. Oxygen sats were 93%, inspired oxygen concentration was not recorded. At the time I saw him, he was on Levophed drip, I believe at 2 mcg per minute through a right IJ central line. General: He is a young male, looks little younger than stated age, normocephalic, atraumatic, talking to me in interrupted sentences, but without overt respiratory distress. HEAD, EYES, EARS, NOSE AND THROAT: He is anicteric. No conjunctival erythema. Oropharynx was dry. No gross jugular venous distention. He had a right IJ central line in place. No significant bleeding or exudation around the stoma. No palpable lymph nodes in the supraclavicular or submandibular lymph node chains. LUNGS: Auscultation of both lung melissa was unremarkable. Lungs were clear bilaterally. HEART: Heart sounds 1 and 2 are heard. They were regular in rate and rhythm. No rubs, no murmurs. ABDOMEN: Soft, flat. Bowel sounds are positive, mildly tender in the epigastric area. No palpable hepatosplenomegaly. EXTREMITIES: Without overt digital clubbing or cyanosis, no pedal edema. Dorsalis pedis pulses were palpable bilaterally. NEUROLOGIC: Pupils were equal, round, about 3-4 mm, reactive to light. Extraocular muscle movements were intact. He moved all 4 extremities spontaneously. He was a little somnolent. The skin was of poor turgor. He did have the scar in the posterior back, I believe for former interventions. LABORATORY DATA: From my review are as follows: Admission labs: Admission white count 22,400 with a hemoglobin 9.7, hematocrit of 34.5, platelet count of 482. No significant band forms were reported. Venous blood gas showed a pH of 6.79 at presentation. Serum sodium was 126, potassium 6.1, chloride 82, bicarbonate was less than 2, BUN was 47, creatinine 1.9, glucose was 1074. The anion gap was 48. Lactic acid level was up at 2.4. Magnesium 2.7. Urinalysis, he was spilling glucose, negative for nitrites and leukocyte esterase. Urine drug screen was negative. Blood cultures were not sent. Radiographic studies were reviewed. A chest x-ray was done. I have reviewed the chest x-ray. Essentially it shows right IJ vascath with the tip in the distal SVC. No pneumothorax. No focal infiltrate or consolidation and otherwise no acute process. ASSESSMENT AND PLAN: 1. Diabetic ketoacidosis. 2. Acute encephalopathy, likely toxic metabolic. 3. Sepsis syndrome with shock. 4. Severe metabolic acidosis. 5. Leukocytosis. 6. Medication noncompliance. 7. Anemia. 8. Hyperkalemia. 9. Hyponatremia, which corrects out for glucose. 10. Acute kidney injury. 11. Elevated lactic acid levels. PLAN: Continue DKA protocol and IV fluid hydration. I believe he is on D5 half NS at the time I saw him. Wean vasopressors to keep mean arterial pressures greater than or equal to about 60-65 mmHg. Supplemental oxygen as necessary to keep sats greater than or equal to about 90%. He has received some Zosyn in the Emergency Room and I believe vancomycin. Cultures reportedly have been sent, but have not been resulted. We will follow those cultures. Anti-infectives will be deescalated based on results of clinical and microbiologic data. Urinalysis has been sent, unremarkable. We will follow cultures if they are done. He will be placed on GI and DVT prophylaxis. I have attempted to encourage better medication compliance. His mental status is still depressed at the time I saw him. We will follow the electrolytes per the DKA protocol. Flu and pneumonia vaccination will be addressed per protocol. Hopefully, he continues to show improvement and does not decompensate further. Thank you very much for the consult. We will follow along and make further recommendations as picture progresses/becomes clearer. He is critically ill on life-sustaining interventions including vasopressors, at high risk for further deterioration including . At this time, I spent about 35-40 minutes of critical care time without overlap excluding any procedural time that may be necessary. JOB# [id number] JADE/LEX
[2017-06-15] MEDS ORDERED: APRESOLINE IV PRN (15:25)
--- NOTE | 2017-06-15 15:48 | Consultation ---
History of Present Illness - Reason for Consult Consult date: 06/15/17 Staph aureus in cath tip Requesting physician: MANUEL ORTIZ - History of Present Illness 31 years old male with history of diabetes type 1, multiple episodes of DKA and MSSA recurrent cutaneous abscesses; well known to ID during previous admissions ; patient was readmitted on 06/10/17 due to elevated glucose and chest pain located across his chest which he describes as a dull pain, constant, intensity 8/10, no radiation, he cannot identify exacerbating or relieving factors. He denies fever, chills, nausea, vomiting, shortness breath, diaphoresis or palpitation. He reported he passed out at home and fell hitting his head on floor. Patient had a laceration over the left eye. In the ED initial temperature was 98.1, heart rate 74, respiration 26, O2 sat 96 , blood pressure 98/41. Show white count 22.4. Hemoglobin 9.7. Platelets 483. Sodium 126. Potassium 6.1. Creatinine 1.9. Glucose 1074. Lactic acid 2.4. Urinalysis negative. A1c 9. In the ED patient refused medical attention and signed AMA paperwork. Unfortunately, he was unable to leave becoming lethargic, seemed to be hypotensive and transferred to the ICU and placed on pressors. A right IJ TLC was placed. Microbiology: Blood cultures: 06/13 neg Right IJ TLC tip: Staph Current Antimicrobials: vanco 06/15 Previous Antimicrobials: Past History Past Medical History: diabetes (juvenile onset), other (history of MRSA infection by report) Past Surgical History: Other (I&D of his neck and back o/w negative) Social history: lives with family. denies: smoking Family history: no significant family history Medications and Allergies Allergies Allergy/AdvReac Type Severity Reaction Status Date / Time codeine Allergy Hives Verified 04/24/17 18:15 ondansetron HCl [From Zofran] Allergy Hives Verified 04/24/17 18:15 hydrocodone bitartrate AdvReac Headache Verified 04/24/17 18:15 [From Lortab] Home Medications Medication Instructions Recorded Confirmed Last Taken Type Insulin NPH Human Isophane 15 unit SQ DAILY 06/12/17 06/12/17 06/09/17 History [Novolin N] 15 units Ferrous Sulfate [Feosol 325 MG tab] 325 mg PO TID #90 tablet 06/14/17 Unknown Rx Active Meds: Active Medications Acetaminophen (Tylenol) 650 mg PO Q4H PRN PRN Reason: Pain MILD(1-3)/Fever >100.5/MCKEON Amlodipine Besylate (Norvasc) 10 mg PO QDAY [facility] Dextrose (D50w (25gm) Syringe) 50 ml IV PRN PRN PRN Reason: Hypoglycemia Last Admin: 06/13/17 21:54 Dose: 50 ml Famotidine (Pepcid) 20 mg PO BID [facility] Last Admin: 06/15/17 11:08 Dose: 20 mg Heparin Sodium (Porcine) (Heparin) 5,000 unit SUB-Q Q12HR [facility] Last Admin: 06/15/17 11:07 Dose: 5,000 unit Hydralazine HCl (Apresoline) 5 mg IV Q4HR PRN PRN Reason: Systolic >160 Potassium Chloride/Dextrose/Sod Cl (D5w/0.45% Nacl/Kcl 20 Meq) 20 meq in 1,000 mls @ 125 mls/hr IV DIRECT [facility] Last Admin: 06/12/17 03:15 Dose: 125 mls/hr Vancomycin HCl 750 mg/ Sodium (Chloride) 257.5 mls @ 166.667 mls/hr IV Q12H [facility] Insulin Human Isoph/Insulin Regular (Humulin 70/30) 10 unit SUB-Q QPMDIAB [facility] Last Admin: 06/14/17 19:10 Dose: 10 unit Insulin Human Regular (Humulin R) 0 units SUB-Q ACHS [facility]; Protocol Last Admin: 06/15/17 07:44 Dose: 6 units Morphine Sulfate (Morphine) 2 mg IV Q4H PRN PRN Reason: Pain, Moderate (4-6) Last Admin: 06/15/17 14:03 Dose: 2 mg Oxycodone/Acetaminophen (Percocet 5/325) 1 tab PO Q6H PRN PRN Reason: Pain, Moderate (4-6) Last Admin: 06/12/17 09:40 Dose: 1 tab Sodium Chloride (Sodium Chloride Flush Syringe 10 Ml) 10 ml IV BID [facility] Last Admin: 06/15/17 11:08 Dose: 10 ml Sodium Chloride (Sodium Chloride Flush Syringe 10 Ml) 10 ml IV PRN PRN PRN Reason: LINE FLUSH Last Admin: 06/12/17 23:41 Dose: 10 ml Vancomycin HCl (Vancomycin Pharmacy To Dose) 1 each IV PKCONSULT [facility]; Protocol Review of Systems All systems: negative (as per HPI rest of 10 point review of systems negative) Physical Examination - Physical Exam Narrative exam: General appearance: Alert in NAD, pale Eyes: anicteric sclerae, moist conjunctivae; no lid-lag; PERRLA HENT: Atraumatic; oropharynx clear with moist mucous membranes and no mucosal ulcerations/no oral thrush; normal hard and soft palate. Normal external ears. Neck: Trachea midline; supple, no thyromegaly or lymphadenopathy Lungs: CTA, with normal respiratory effort and no intercostal retractions CV: RRR, no murmurs Abdomen: Soft, non-tender; no masses or hepatosplenomegaly Extremities: No peripheral edema or extremity lymphadenopathy Skin: Normal temperature, turgor and texture; no rash, ulcers or subcutaneous nodules Psych: Appropriate affect, alert and oriented to person, place and time. Neuro: alert and oriented x 3. Moving all extermities Lines: No CVL / PICC - Constitutional Vitals: Vital Signs Temp Pulse Resp BP Pulse Ox 97.8 F 99 H 20 151/109 98 06/15/17 07:34 06/15/17 07:34 06/15/17 07:34 06/15/17 07:34 06/15/17 07:34 Temperature -Last 24 Hours Temperature 97.8 F Temperature 97.7 F Temperature 97.3 F Results - Labs CBC & Chem 7: 06/15/17 05:33 06/15/17 05:33 Labs: Abnormal lab results 06/14/17 06/14/17 06/14/17 Range/Units 15:35 16:14 21:30 WBC (4.5-11.0) K/mm3 RBC (3.65-5.03) M/mm3 Hgb 9.2 L (11.8-15.2) gm/dl Hct 27.2 L D (35.5-45.6) % MCHC (32-34) % Plt Count (140-440) K/mm3 Lymph # (1.2-5.4) K/mm3 Seg Neutrophils % (40.0-70.0) % Carbon Dioxide (22-30) mmol/L Glucose (75-100) mg/dL POC Glucose 164 H 186 H (70-105) Calcium (8.4-10.2) mg/dL 06/15/17 06/15/17 06/15/17 Range/Units 05:33 05:33 06:33 WBC 4.0 L (4.5-11.0) K/mm3 RBC 3.08 L (3.65-5.03) M/mm3 Hgb 9.5 L (11.8-15.2) gm/dl Hct 26.9 L (35.5-45.6) % MCHC 35 H (32-34) % Plt Count 132 L (140-440) K/mm3 Lymph # 0.6 L (1.2-5.4) K/mm3 Seg Neutrophils % 73.8 H (40.0-70.0) % Carbon Dioxide 20 L (22-30) mmol/L Glucose 228 H (75-100) mg/dL POC Glucose 300 H (70-105) Calcium 8.3 L (8.4-10.2) mg/dL 06/15/17 Range/Units 11:43 WBC (4.5-11.0) K/mm3 RBC (3.65-5.03) M/mm3 Hgb (11.8-15.2) gm/dl Hct (35.5-45.6) % MCHC (32-34) % Plt Count (140-440) K/mm3 Lymph # (1.2-5.4) K/mm3 Seg Neutrophils % (40.0-70.0) % Carbon Dioxide (22-30) mmol/L Glucose (75-100) mg/dL POC Glucose 123 H (70-105) Calcium (8.4-10.2) mg/dL Assessment and Plan Assessment: 1) Sepsis with initial septic vs. hypovolemic shock: Present on admission, manifested by tachycardia, hypotension, leukocytosis, increased lactate. Etiology most likely ?dehydration from DKA +/- aspiration pneumonitis. 2) Staph aureus growing on right IJ TLC ? cath infection. However, blood cx remains negative. 3) DM uncontrolled with DKA 4) Hyponatremia 5) Anemia 6) ECHO Plan: -continue vancomcyin for now -add levaquin and flagyl for pneumonitis -upon discharge will probably recommend zyvox 600 mg po q12h total 7 days to treat cath infection until 07/21 Thank you for your consultation, will follow up with you. Rowena Estevez MD Infectious Diseases Specialist [facility] ([facility] M [phone] O [phone]
[2017-06-15] MEDS: FLAGYL PO SCH (20:15)
[2017-06-15] MEDS: LEVAQUIN PO SCH (20:15)
[2017-06-16] MEDS: PERCOCET 5/325 PO PRN ×2 (01:56→20:56)
[2017-06-16] MEDS: VANCOMYCIN 750 MG in NACL 0.9% 250ML 250 ML IV SCH (03:39)
[2017-06-16] MEDS: MORPHINE IV PRN ×3 (04:50→15:49)
[2017-06-16] MEDS: FLAGYL PO SCH ×2 (06:00→15:48)
[2017-06-16] MEDS: HumuLIN R SUB-Q SCH ×3 (06:49→18:45)
[2017-06-16 07:11] LABS: Basophils % (Auto) 0.5 % (0.0-1.8); Eosinophils # (Auto) 0.1 K/mm3 (0.0-0.4); Eosinophils % (Auto) 2.4 % (0.0-4.3); Hematocrit 25.6 % (35.5-45.6); Lymphocytes # (Auto) 0.8 K/mm3 (1.2-5.4); Lymphocytes % (Auto) 17.2 % (13.4-35.0); Mean Corpuscular HGB Conc 35 % (32-34); Mean Corpuscular Hemoglobin 31 pg (28-32); Mean Corpuscular Volume 87 fl (84-94); Monocytes # (Auto) 0.3 K/mm3 (0.0-0.8); Monocytes % (Auto) 7.7 % (0.0-7.3); Platelet Count 134 K/mm3 (140-440); Red Blood Count 2.95 M/mm3 (3.65-5.03); Red Cell Distribution Width 13.7 % (13.2-15.2)
[2017-06-16 07:27] LABS: BUN/Creatinine Ratio 17; Blood Urea Nitrogen 15 mg/dL (9-20); Calcium 7.7 mg/dL (8.4-10.2); Hemolysis Index 9
[2017-06-16] MEDS: LEVAQUIN PO SCH (10:14)
[2017-06-16] MEDS: PEPCID PO SCH (10:14)
[2017-06-16] MEDS: NORVASC PO SCH (10:15)
[2017-06-16] MEDS: HEPARIN SUB-Q SCH (10:15)
[2017-06-16] MEDS: SODIUM CHLORIDE FLUSH SYRINGE 10 ML IV SCH (10:22)
--- NOTE | 2017-06-16 13:33 | Progress Note ---
Assessment and Plan Assessment: 1) Sepsis with initial septic vs. hypovolemic shock: Present on admission, manifested by tachycardia, hypotension, leukocytosis, increased lactate. Etiology most likely ?dehydration from DKA +/- aspiration pneumonitis. 2) MSSA growing on right IJ TLC ? cath infection. However, blood cx remains negative. Cath removed. 3) DM uncontrolled with DKA 4) Hyponatremia 5) Anemia 6) ECHO Plan: -stop vancomcyin -stop levaquin -start cefazolin IV to cover MSSA -continue flagyl for pneumonitis D2 of 5 -upon discharge will probably recommend zyvox 600 mg po q12h total 7 days to treat central cath infection until 06/21 - zyvox patient assistance program Thank you for your consultation, will follow up with you. Rowena Estevez MD Infectious Diseases Specialist [facility] M [phone] O [phone] Subjective Date of service: 06/16/17 Principal diagnosis: Severe Sepsis; DKA; Acute encephalopathy(toxic-metabolic); Staph bacteremia Interval history: Feels better, no complaints. no fever. Microbiology: Blood cultures: 06/13 neg Right IJ TLC tip: MSSA Current Antimicrobials: vanco 06/15 Objective - Exam Narrative Exam: General appearance: Alert in NAD, pale Eyes: anicteric sclerae, moist conjunctivae; no lid-lag; PERRLA HENT: Atraumatic; oropharynx clear with moist mucous membranes and no mucosal ulcerations/no oral thrush; normal hard and soft palate. Normal external ears. Neck: Trachea midline; supple, no thyromegaly or lymphadenopathy Lungs: CTA, with normal respiratory effort and no intercostal retractions CV: RRR, no murmurs Abdomen: Soft, non-tender; no masses or hepatosplenomegaly Extremities: No peripheral edema or extremity lymphadenopathy Skin: Normal temperature, turgor and texture; no rash, ulcers or subcutaneous nodules Psych: Appropriate affect, alert and oriented to person, place and time. Neuro: alert and oriented x 3. Moving all extermities Lines: No CVL / PICC - Constitutional Vitals: Vital Signs Temp Pulse Resp BP Pulse Ox 98.4 F 98 H 18 131/96 98 06/16/17 07:44 06/16/17 10:15 06/16/17 10:43 06/16/17 10:15 06/16/17 07:44 Temperature -Last 24 Hours Temperature 98.4 F Temperature 98.3 F Temperature 98.4 F - Labs CBC & Chem 7: 06/16/17 06:26 06/16/17 06:26 Labs: Abnormal lab results 06/15/17 06/15/17 06/16/17 Range/Units 16:39 21:08 06:24 RBC (3.65-5.03) M/mm3 Hgb (11.8-15.2) gm/dl Hct (35.5-45.6) % MCHC (32-34) % Plt Count (140-440) K/mm3 [place] % (Auto) (0.0-7.3) % Lymph # (1.2-5.4) K/mm3 Seg Neutrophils % (40.0-70.0) % Sodium (137-145) mmol/L Carbon Dioxide (22-30) mmol/L Glucose (75-100) mg/dL POC Glucose 353 H 200 H 476 H (70-105) Calcium (8.4-10.2) mg/dL 06/16/17 06/16/17 06/16/17 Range/Units 06:26 06:26 11:17 RBC 2.95 L (3.65-5.03) M/mm3 Hgb 9.0 L (11.8-15.2) gm/dl Hct 25.6 L (35.5-45.6) % MCHC 35 H (32-34) % Plt Count 134 L (140-440) K/mm3 [place] % (Auto) 7.7 H (0.0-7.3) % Lymph # 0.8 L (1.2-5.4) K/mm3 Seg Neutrophils % 72.2 H (40.0-70.0) % Sodium 132 L (137-145) mmol/L Carbon Dioxide 21 L (22-30) mmol/L Glucose 468 H (75-100) mg/dL POC Glucose 355 H (70-105) Calcium 7.7 L (8.4-10.2) mg/dL
[2017-06-16] MEDS ORDERED: ceFAZolin 2 GM in NACL 0.9% 100 ML IV SCH (14:00)
--- NOTE | 2017-06-16 15:01 | Gastroenterology Consultation ---
History of Present Illness - Reason for Consult Consult date: 06/16/17 Anemia Requesting physician: SEBASTIAN SAMEUL - History of Present Illness The patient is known to our service from [facility] and [facility]. He has been admitted multiple times for both DKA and chronic Staph abscesses. He was admitted with DKA this time, and noted to have significant anemia. However, he has a hx of severe anemia for several years. He had an EGD earlier this year at [facility] that showed a peptic ulcer, presumably from NSAIDs, and he is not compliant with protonix (or MVI) therapy. He denies recent NSAIDs, and has seen no melena nor hematochezia. He has no anorexia, and ate all of his (regular) diet today). He is not on MVI therapy. There has been no lower endoscopy by his report, and there is no family hx of colon cancer or GI bleeding. Past History Past Medical History: diabetes (juvenile onset), other (history of MRSA infection by report, medical noncompliance, malnutrition) Past Surgical History: Other (I&D of his neck and back o/w negative) Social history: lives with family. denies: smoking, alcohol abuse Family history: no significant family history Medications and Allergies Allergies Allergy/AdvReac Type Severity Reaction Status Date / Time codeine Allergy Hives Verified 04/24/17 18:15 ondansetron HCl [From Zofran] Allergy Hives Verified 04/24/17 18:15 hydrocodone bitartrate AdvReac Headache Verified 04/24/17 18:15 [From Lortab] Home Medications Medication Instructions Recorded Confirmed Last Taken Type Insulin NPH Human Isophane 15 unit SQ DAILY 06/12/17 06/12/17 06/09/17 History [Novolin N] 15 units Ferrous Sulfate [Feosol 325 MG tab] 325 mg PO TID #90 tablet 06/14/17 Unknown Rx Active Meds: Active Medications Acetaminophen (Tylenol) 650 mg PO Q4H PRN PRN Reason: Pain MILD(1-3)/Fever >100.5/MCKEON Amlodipine Besylate (Norvasc) 10 mg PO QDAY [facility] Last Admin: 06/16/17 10:15 Dose: 10 mg Dextrose (D50w (25gm) Syringe) 50 ml IV PRN PRN PRN Reason: Hypoglycemia Last Admin: 06/13/17 21:54 Dose: 50 ml Famotidine (Pepcid) 20 mg PO BID [facility] Last Admin: 06/16/17 10:14 Dose: 20 mg Heparin Sodium (Porcine) (Heparin) 5,000 unit SUB-Q Q12HR [facility] Last Admin: 06/16/17 10:15 Dose: 5,000 unit Hydralazine HCl (Apresoline) 5 mg IV Q4HR PRN PRN Reason: Systolic >160 Last Admin: 06/16/17 00:19 Dose: 5 mg Cefazolin Sodium (Ancef/Sterile Water 2 Gm/20 Ml) 2 gm in 20 mls @ 120 mls/hr IV Q8HR [facility] Insulin Human Isoph/Insulin Regular (Humulin 70/30) 10 unit SUB-Q QPMDIAB [facility] Last Admin: 06/15/17 16:30 Dose: 10 unit Insulin Human Regular (Humulin R) 0 units SUB-Q ACHS [facility]; Protocol Last Admin: 06/16/17 12:52 Dose: 8 units Metronidazole (Flagyl) 500 mg PO Q8HR [facility] Last Admin: 06/16/17 06:00 Dose: Not Given Morphine Sulfate (Morphine) 1 mg IV Q6H PRN PRN Reason: Pain, Moderate (4-6) Oxycodone/Acetaminophen (Percocet 5/325) 1 tab PO Q6H PRN PRN Reason: Pain, Moderate (4-6) Last Admin: 06/16/17 01:56 Dose: 1 tab Sodium Chloride (Sodium Chloride Flush Syringe 10 Ml) 10 ml IV BID [facility] Last Admin: 06/16/17 10:22 Dose: 10 ml Sodium Chloride (Sodium Chloride Flush Syringe 10 Ml) 10 ml IV PRN PRN PRN Reason: LINE FLUSH Last Admin: 06/12/17 23:41 Dose: 10 ml --I HAVE REVIEWED AND RECONCILED MEDICATIONS-- Review of Systems - Review of Systems All systems: negative (as noted in the HPI) Exam - Constitutional Vital Signs: Temp Pulse Resp BP Pulse Ox 98.4 F 98 H 18 131/96 98 06/16/17 07:44 06/16/17 10:15 06/16/17 10:43 06/16/17 10:15 06/16/17 07:44 General appearance: disheveled, other (Underweight) - EENT Eyes: PERRL, EOM intact ENT: clear oral mucosa, poor dentition - Neck Neck: supple, normal ROM - Respiratory Respiratory effort: normal Respiratory: bilateral: CTA - Cardiovascular Rhythm: regular Heart Sounds: Present: S1 & S2 Extremities: no ischemia - Gastrointestinal General gastrointestinal: Present: soft, non-tender, non-distended - Integumentary Integumentary: Present: clear, warm, dry - Neurologic Neurological: alert and oriented x3 - Labs CBC & Chem 7: 06/16/17 06:26 06/16/17 06:26 Lab Results: Laboratory Results - last 24 hr 06/15/17 06/15/17 06/16/17 16:39 21:08 06:24 WBC RBC Hgb Hct MCV MCH MCHC RDW Plt Count Lymph % (Auto) [place] % (Auto) Eos % (Auto) Baso % (Auto) Lymph # [place] # Eos # Baso # Seg Neutrophils % Seg Neutrophils # Sodium Potassium Chloride Carbon Dioxide Anion Gap BUN Creatinine Estimated GFR BUN/Creatinine Ratio Glucose POC Glucose 353 H 200 H 476 H Calcium 06/16/17 06/16/17 06/16/17 06:26 06:26 11:17 WBC 4.5 RBC 2.95 L Hgb 9.0 L Hct 25.6 L MCV 87 MCH 31 MCHC 35 H RDW 13.7 Plt Count 134 L Lymph % (Auto) 17.2 [place] % (Auto) 7.7 H Eos % (Auto) 2.4 Baso % (Auto) 0.5 Lymph # 0.8 L [place] # 0.3 Eos # 0.1 Baso # 0.0 Seg Neutrophils % 72.2 H Seg Neutrophils # 3.2 Sodium 132 L Potassium 4.3 Chloride 98.5 Carbon Dioxide 21 L Anion Gap 17 BUN 15 Creatinine 0.9 Estimated GFR > 60 BUN/Creatinine Ratio 17 Glucose 468 H POC Glucose 355 H Calcium 7.7 L Assessment and Plan - Patient Problems (1) Iron deficiency anemia due to chronic blood loss Current Visit: Yes Status: Acute Plan to address problem: - Hx of PUD (2018) due to NSAIDs, but also hx of chronic Staph abscess. In addition, patient noncompliant with PPI therapy. - No gross bleeding at present; no need for emergent endoscopy. - Will resume his MVI and protonix therapy; patient should also avoid all NSAIDs. - Patient may f/u in our office in [place], and we will arrange outpatient lower (and probably repeat upper) endoscopy. - OK to d/c per our service if hct is stable.
[2017-06-16] MEDS: THERAGRAN-M Tab PO SCH (15:48)
[2017-06-16] MEDS: PROTONIX PO SCH (15:48)
[2017-06-16] MEDS ORDERED: D50W (25GM) Syringe IV PRN (17:15)
--- NOTE | 2017-06-16 17:24 | Progress Note ---
Assessment and Plan Assessment and plan: Patient is a 31 yo man with a history of IDDM, multiple DKA admissions who presented with AMS and admitted for Diabetic ketoacidosis. Resolved. Continue current medical management. Sepsis. Continue IV antibiotics of Zosyn and vancomycin. Catheter culture grew staph aureus, ID consulted, awaiting sensitivity Toxic metabolic encephalopathy. Resolved. Etiology secondary to above. Continue to treat underlying causes. Acute kidney injury, vasomotor nephropathy. improved Severe Malnutrition,poa: dietary supplements recommended Hyperkalemia. Etiology secondary to acute renal failure and DKA. Resolved Anemia, acute on chronic AOCD. Transfused with 1 unit PRBC, will continue to follow, GI consult Hypertension Norvasc initiated, Hydralazine PRN DVT prophylaxis. Continue heparin every 12 hours. per GI, Dr. Dela Cruz: "(1) Iron deficiency anemia due to chronic blood loss Current Visit: Yes Status: Acute Plan to address problem: - Hx of PUD (2018) due to NSAIDs, but also hx of chronic Staph abscess. In addition, patient noncompliant with PPI therapy. - No gross bleeding at present; no need for emergent endoscopy. - Will resume his MVI and protonix therapy; patient should also avoid all NSAIDs. - Patient may f/u in our office in [place], and we will arrange outpatient lower (and probably repeat upper) endoscopy. - OK to d/c per our service if hct is stable." Assessment: 1) Sepsis with initial septic vs. hypovolemic shock: Present on admission, manifested by tachycardia, hypotension, leukocytosis, increased lactate. Etiology most likely ?dehydration from DKA +/- aspiration pneumonitis. 2) MSSA growing on right IJ TLC ? cath infection. However, blood cx remains negative. Cath removed. 3) DM uncontrolled with DKA 4) Hyponatremia 5) Anemia 6) ECHO Plan: -stop vancomcyin -stop levaquin -start cefazolin IV to cover MSSA -continue flagyl for pneumonitis D2 of 5 -upon discharge will probably recommend zyvox 600 mg po q12h total 7 days to treat central cath infection until 06/21 - zyvox patient assistance program Thank you for your consultation, will follow up with you. Rowena Estevez MD Infectious Diseases Specialist Disposition: once blood glucose improved, will discharge, adjusted insulins. Also, d/w case management, pt needs patient assistance for zyvox History Interval history: Patient was seen and examined. Follow-up on current diagnosis. Overnight uneventful. Patient denies any chest pain, shortness breath, nausea/vomiting or severe headaches. Imaging, nursing note, chart, labs and old chart reviewed. Discussed with patient. Hospitalist Physical - Physical exam Narrative exam: GEN: WDWN, NAD, Awake, Alert, Orientated HEENT: NCAT, EOMI, PERRL, OP Clear NECK: supple, no adenopathy, no thyromegaly, no JVD CVS/HEART: RRR, normal S1S2, pulses present bilaterally CHEST/LUNGS: CTA B, chest deformed, good air entry bilaterally GI/Abdomen: soft, NTND, good bowel sounds, no guarding or rebound /Bladder: no suprapubic tenderness, no CVA or paraspinal tenderness EXT/Skin: no c/c/e, no obvious rash MSK: FROM x 4 Neuro: CN 2-12 grossly intact, no new focal deficits Psych: calm - Constitutional Vitals: Temp Pulse Resp BP Pulse Ox 98.1 F 96 H 20 122/89 97 06/16/17 16:16 06/16/17 16:16 06/16/17 16:16 06/16/17 16:16 06/16/17 16:16 General appearance: Present: no acute distress, well-nourished Results - Labs CBC & Chem 7: 06/16/17 06:26 06/16/17 06:26 Labs: Laboratory Last Values WBC 4.5 K/mm3 (4.5-11.0) 06/16/17 06:26 RBC 2.95 M/mm3 (3.65-5.03) L 06/16/17 06:26 Hgb 9.0 gm/dl (11.8-15.2) L 06/16/17 06:26 Hct 25.6 % (35.5-45.6) L 06/16/17 06:26 MCV 87 fl (84-94) 06/16/17 06:26 MCH 31 pg (28-32) 06/16/17 06:26 MCHC 35 % (32-34) H 06/16/17 06:26 RDW 13.7 % (13.2-15.2) 06/16/17 06:26 Plt Count 134 K/mm3 (140-440) L 06/16/17 06:26 Lymph % (Auto) 17.2 % (13.4-35.0) 06/16/17 06:26 [place] % (Auto) 7.7 % (0.0-7.3) H 06/16/17 06:26 Eos % (Auto) 2.4 % (0.0-4.3) 06/16/17 06:26 Baso % (Auto) 0.5 % (0.0-1.8) 06/16/17 06:26 Lymph # 0.8 K/mm3 (1.2-5.4) L 06/16/17 06:26 [place] # 0.3 K/mm3 (0.0-0.8) 06/16/17 06:26 Eos # 0.1 K/mm3 (0.0-0.4) 06/16/17 06:26 Baso # 0.0 K/mm3 (0.0-0.1) 06/16/17 06:26 Add Manual Diff Complete 06/10/17 18:41 Total Counted 100 06/10/17 18:41 Seg Neutrophils % 72.2 % (40.0-70.0) H 06/16/17 06:26 Seg Neuts % (Manual) 67.0 % (40.0-70.0) 06/10/17 18:41 Band Neutrophils % 5.0 % 06/10/17 18:41 Lymphocytes % (Manual) 20.0 % (13.4-35.0) 06/10/17 18:41 Reactive Lymphs % (Man) 0 % 06/10/17 18:41 Monocytes % (Manual) 6.0 % (0.0-7.3) 18 18:41 Eosinophils % (Manual) 0 % (0.0-4.3) 06/10/17 18:41 Basophils % (Manual) 1.0 % (0.0-1.8) 06/10/17 18:41 Metamyelocytes % 1.0 % 06/10/17 18:41 Myelocytes % 0 % 06/10/17 18:41 Promyelocytes % 0 % 06/10/17 18:41 Blast Cells % 0 % 06/10/17 18:41 Nucleated RBC % Not Reportable 06/10/17 18:41 Seg Neutrophils # 3.2 K/mm3 (1.8-7.7) 06/16/17 06:26 Seg Neutrophils # Man 15.0 K/mm3 (1.8-7.7) H 06/10/17 18:41 Band Neutrophils # 1.1 K/mm3 06/10/17 18:41 Lymphocytes # (Manual) 4.5 K/mm3 (1.2-5.4) 06/10/17 18:41 Abs React Lymphs (Man) 0.0 K/mm3 06/10/17 18:41 Monocytes # (Manual) 1.3 K/mm3 (0.0-0.8) H 06/10/17 18:41 Eosinophils # (Manual) 0.0 K/mm3 (0.0-0.4) 06/10/17 18:41 Basophils # (Manual) 0.2 K/mm3 (0.0-0.1) H 06/10/17 18:41 Metamyelocytes # 0.2 K/mm3 06/10/17 18:41 Myelocytes # 0.0 K/mm3 06/10/17 18:41 Promyelocytes # 0.0 K/mm3 06/10/17 18:41 Blast Cells # 0.0 K/mm3 06/10/17 18:41 WBC Morphology Not Reportable 06/10/17 18:41 Hypersegmented Neuts Not Reportable 06/10/17 18:41 Hyposegmented Neuts Not Reportable 06/10/17 18:41 Hypogranular Neuts Not Reportable 06/10/17 18:41 Smudge Cells Not Reportable 06/10/17 18:41 Toxic Granulation Not Reportable 06/10/17 18:41 Toxic Vacuolation Not Reportable 06/10/17 18:41 Dohle Bodies Not Reportable 06/10/17 18:41 Pelger-Huet Anomaly Not Reportable 06/10/17 18:41 Gloria Rods Not Reportable 06/10/17 18:41 Platelet Estimate Appears increased 06/10/17 18:41 Clumped Platelets Not Reportable 06/10/17 18:41 Plt Clumps, EDTA Not Reportable 06/10/17 18:41 Large Platelets 1+ 06/10/17 18:41 Giant Platelets Not Reportable 06/10/17 18:41 Platelet Satelliting Not Reportable 06/10/17 18:41 Plt Morphology Comment Not Reportable 06/10/17 18:41 RBC Morphology Not Reportable 06/10/17 18:41 Dimorphic RBCs Not Reportable 06/10/17 18:41 Polychromasia Not Reportable 06/10/17 18:41 Hypochromasia Not Reportable 06/10/17 18:41 Poikilocytosis 1+ 06/10/17 18:41 Anisocytosis 1+ 06/10/17 18:41 Microcytosis Not Reportable 06/10/17 18:41 Macrocytosis Not Reportable 06/10/17 18:41 Spherocytes Not Reportable 06/10/17 18:41 Pappenheimer Bodies Not Reportable 06/10/17 18:41 Sickle Cells Not Reportable 06/10/17 18:41 Target Cells Not Reportable 06/10/17 18:41 Tear Drop Cells Not Reportable 06/10/17 18:41 Ovalocytes Not Reportable 06/10/17 18:41 Helmet Cells Not Reportable 06/10/17 18:41 [place] Bodies Not Reportable 06/10/17 18:41 [place] Rings Not Reportable 06/10/17 18:41 [place] Cells Not Reportable 06/10/17 18:41 Bite Cells Not Reportable 06/10/17 18:41 Crenated Cell Not Reportable 06/10/17 18:41 Elliptocytes Not Reportable 06/10/17 18:41 Acanthocytes (Spur) Not Reportable 06/10/17 18:41 Rouleaux Not Reportable 06/10/17 18:41 Hemoglobin C Crystals Not Reportable 06/10/17 18:41 Schistocytes Not Reportable 06/10/17 18:41 Malaria parasites Not Reportable 06/10/17 18:41 Matt Bodies Not Reportable 06/10/17 18:41 Hem Pathologist Commnt No 06/10/17 18:41 VBG pH 6.793 (7.320-7.420) L* 06/10/17 18:41 Sodium 132 mmol/L (137-145) L 06/16/17 06:26 Potassium 4.3 mmol/L (3.6-5.0) 06/16/17 06:26 Chloride 98.5 mmol/L (98-107) 06/16/17 06:26 Carbon Dioxide 21 mmol/L (22-30) L 06/16/17 06:26 Anion Gap 17 mmol/L 06/16/17 06:26 BUN 15 mg/dL (9-20) 06/16/17 06:26 Creatinine 0.9 mg/dL (0.8-1.5) 06/16/17 06:26 Estimated GFR > 60 ml/min 06/16/17 06:26 BUN/Creatinine Ratio 17 % 06/16/17 06:26 Glucose 468 mg/dL (75-100) H 06/16/17 06:26 POC Glucose 192 (70-105) H 06/16/17 16:18 Hemoglobin A1c 9.0 % (4-6) H 06/11/17 00:49 Lactic Acid 2.40 mmol/L (0.7-2.0) H* 06/10/17 18:41 Calcium 7.7 mg/dL (8.4-10.2) L 06/16/17 06:26 Phosphorus 5.00 mg/dL (2.5-4.5) H D 06/11/17 00:49 Magnesium 1.80 mg/dL (1.7-2.3) 06/11/17 00:49 Total Bilirubin 0.20 mg/dL (0.1-1.2) 06/10/17 18:41 AST 15 units/L (5-40) 06/10/17 18:41 ALT 22 units/L (7-56) 06/10/17 18:41 Alkaline Phosphatase 282 units/L (35-129) H 06/10/17 18:41 Total Protein 5.8 g/dL (6.3-8.2) L 06/10/17 18:41 Albumin 2.9 g/dL (3.9-5) L 06/10/17 18:41 Albumin/Globulin Ratio 1.0 % 06/10/17 18:41 Urine Color Yellow (Yellow) 06/10/17 19:10 Urine Turbidity Clear (Clear) 06/10/17 19:10 Urine pH 5.0 (5.0-7.0) 06/10/17 19:10 Ur Specific [place] 1.016 (1.003-1.030) 06/10/17 19:10 Urine Protein 30 mg/dl mg/dL (Negative) 06/10/17 19:10 Urine Glucose (UA) >=500 mg/dL (Negative) 06/10/17 19:10 Urine Ketones 80 mg/dL (Negative) 06/10/17 19:10 Urine Blood Sm (Negative) 06/10/17 19:10 Urine Nitrite Neg (Negative) 06/10/17 19:10 Urine Bilirubin Neg (Negative) 06/10/17 19:10 Urine Urobilinogen < 2.0 mg/dL (<2.0) 06/10/17 19:10 Ur Leukocyte Esterase Neg (Negative) 06/10/17 19:10 Urine WBC (Auto) 1.0 /HPF (0.0-6.0) 06/10/17 19:10 Urine RBC (Auto) < 1.0 /HPF (0.0-6.0) 06/10/17 19:10 Amorphous Crystals Few 06/10/17 19:10 Urine Opiates Screen Presumptive negative 06/10/17 19:10 Urine Methadone Screen Presumptive negative 06/10/17 19:10 Ur Barbiturates Screen Presumptive negative 06/10/17 19:10 Ur Phencyclidine Scrn Presumptive negative 06/10/17 19:10 Ur Amphetamines Screen Presumptive negative 06/10/17 19:10 U Benzodiazepines Scrn Presumptive negative 06/10/17 19:10 Urine Cocaine Screen Presumptive negative 06/10/17 19:10 U Marijuana (THC) Screen Presumptive negative 06/10/17 19:10 Drugs of Abuse Note Disclamer 06/10/17 19:10 Plasma/Serum Alcohol < 0.01 % (0-0.07) 06/10/17 18:41 Blood Type A POSITIVE 06/14/17 09:13 Antibody Screen Negative 06/14/17 09:13 Crossmatch See Detail 06/14/17 09:13
[2017-06-16] MEDS: HumaLOG SUB-Q SCH (18:42)
[2017-06-16] MEDS: ANCEF/STERILE WATER 2 GM/20 ML 2 GM/20 ML SYRINGE IV SCH (18:42)
[2017-06-17] MEDS: FLAGYL PO SCH ×3 (00:16→13:27)
[2017-06-17] MEDS: ANCEF/STERILE WATER 2 GM/20 ML 2 GM/20 ML SYRINGE IV SCH ×3 (00:17→13:27)
[2017-06-17] MEDS: HEPARIN SUB-Q SCH ×2 (00:24→11:36)
[2017-06-17] MEDS: SODIUM CHLORIDE FLUSH SYRINGE 10 ML IV SCH ×2 (00:43→11:37)
[2017-06-17] MEDS: HumaLOG SUB-Q SCH ×4 (00:44→17:22)
[2017-06-17] MEDS: PERCOCET 5/325 PO PRN ×2 (03:29→09:48)
[2017-06-17] MEDS: PROTONIX PO SCH (11:35)
[2017-06-17] MEDS: NORVASC PO SCH (11:35)
[2017-06-17] MEDS: THERAGRAN-M Tab PO SCH (11:35)
[2017-06-17 13:23] VITALS: BP 134/94
[2017-06-17] MEDS: MORPHINE IV PRN (14:32)
--- NOTE | 2017-06-17 16:04 | Discharge Summary ---
Providers - Providers Date of Admission: 06/10/17 21:31 Date of discharge: 06/17/17 Attending physician: SEBASTIAN SAMUEL 06/10/17 21:41 Consult to Physician [CONS] Routine Comment: Consulting Provider: ERLINDA PARK Physician Instructions: Reason For Exam: CCU 06/10/17 23:57 Consult to Dietitian/Nutrition [CONS] Routine Physician Instructions: Reason For Exam: DKA Reason for Consult: Nutrition Recommendations Reason for Consult: Diet education 06/11/17 06:08 Consult to Physician [CONS] Routine Comment: Consulting Provider: ALLISON ALVAREZ Physician Instructions: Reason For Exam: port placement 06/14/17 15:46 Consult to Physician [CONS] Routine Comment: Consulting Provider: ROWENA MINOR Physician Instructions: Reason For Exam: staph aureus 06/15/17 15:23 Consult to Physician [CONS] Routine Comment: Consulting Provider: SERENE ARAMBULA Physician Instructions: Reason For Exam: anemia Primary care physician: LEAD EMBEDDED SOFTWARE ENGINEER Hospitalization Condition: Stable Hospital course: Patient is a 31 yo man with a history of IDDM, multiple DKA admissions who presented with AMS and admitted for Diabetic ketoacidosis. Resolved. Continue current medical management. Sepsis. Continue IV antibiotics of Zosyn and vancomycin. Catheter culture grew staph aureus, ID consulted, awaiting sensitivity Toxic metabolic encephalopathy. Resolved. Etiology secondary to above. Continue to treat underlying causes. Acute kidney injury, vasomotor nephropathy. improved Severe Malnutrition,poa: dietary supplements recommended Hyperkalemia. Etiology secondary to acute renal failure and DKA. Resolved Anemia, acute on chronic AOCD. Transfused with 1 unit PRBC, will continue to follow, GI consult Hypertension Norvasc initiated, Hydralazine PRN DVT prophylaxis. Continue heparin every 12 hours. per GI, Dr. Hudson: "(1) Iron deficiency anemia due to chronic blood loss Current Visit: Yes Status: Acute Plan to address problem: - Hx of PUD (2018) due to NSAIDs, but also hx of chronic Staph abscess. In addition, patient noncompliant with PPI therapy. - No gross bleeding at present; no need for emergent endoscopy. - Will resume his MVI and protonix therapy; patient should also avoid all NSAIDs. - Patient may f/u in our office in [place], and we will arrange outpatient lower (and probably repeat upper) endoscopy. - OK to d/c per our service if hct is stable." Assessment: 1) Sepsis with initial septic vs. hypovolemic shock: Present on admission, manifested by tachycardia, hypotension, leukocytosis, increased lactate. Etiology most likely ?dehydration from DKA +/- aspiration pneumonitis. 2) MSSA growing on right IJ TLC ? cath infection. However, blood cx remains negative. Cath removed. 3) DM uncontrolled with DKA 4) Hyponatremia 5) Anemia 6) ECHO Plan: -stop vancomcyin -stop levaquin -start cefazolin IV to cover MSSA -continue flagyl for pneumonitis D2 of 5 -upon discharge will probably recommend zyvox 600 mg po q12h total 7 days to treat central cath infection until 06/21 - zyvox patient assistance program Thank you for your consultation, will follow up with you. Rowena Estevez MD Infectious Diseases Specialist Disposition: once blood glucose improved, will discharge, adjusted insulins. Also, d/w case management, pt needs patient assistance for zyvox Disposition: DC- TO HOME OR SELFCARE Time spent for discharge: 35 minutes Core Measure Documentation - Palliative Care Palliative Care/ Comfort Measures: Not Applicable - Core Measures Any of the following diagnoses?: none - VTE Discharge Requirements Deep Vein Thrombosis/Pulmonary Embolism Present on Admission: No Has pt received <5 days of overlap therapy or INR<2.0: No Anticoagulant overlap therapy prescribed at discharge: No Contraindication No Overlap Therapy order at DC: Not Indicated Exam - Physical Exam Narrative exam: GEN: WDWN, NAD, Awake, Alert, Orientated HEENT: NCAT, EOMI, PERRL, OP Clear NECK: supple, no adenopathy, no thyromegaly, no JVD CVS/HEART: RRR, normal S1S2, pulses present bilaterally CHEST/LUNGS: CTA B, chest deformed, good air entry bilaterally GI/Abdomen: soft, NTND, good bowel sounds, no guarding or rebound /Bladder: no suprapubic tenderness, no CVA or paraspinal tenderness EXT/Skin: no c/c/e, no obvious rash MSK: FROM x 4 Neuro: CN 2-12 grossly intact, no new focal deficits Psych: calm - Constitutional Vitals: Temp Pulse Resp BP Pulse Ox 97.7 F 87 18 134/94 98 06/17/17 11:41 04/26/18 11:41 06/17/17 11:41 06/17/17 11:41 06/17/17 11:41 Plan Activity: other (no strenous activities until cleared by pcp) Diet: low salt, diabetic Special Instructions: record blood sugar diary Follow up with: [facility] [Provider Group] - 7 Days EVAN HUDSON MD [Staff Physician] - 7 Days PRIMARY CARE, [Primary Care Provider] - 3-5 Days Prescriptions: Ferrous Sulfate [Feosol 325 MG tab] 325 mg PO TID #90 tablet Linezolid [Zyvox] 600 mg PO BID 4 Days tablet
== END 2017-06-17 19:04 | disposition home or self-care (01) | DRG 871 ==
LOC: ED 17:09 → 4A 21:31 → CC1 21:47 → 3A 06-12 15:38
PROVIDERS: ADMIT Internal Medicine; ATTEND Internal Medicine
PROC: 02HV33Z Insertion of Infusion Device into Superior Vena Cava, Percutaneous Approach (ICD-10-PCS; principal; 2017-06-10)
PROC: 30233N1 Transfusion of Nonautologous Red Blood Cells into Peripheral Vein, Percutaneous Approach (ICD-10-PCS; 2017-06-14)
DX: A41.9 Sepsis, unspecified organism (principal); E11.10 Type 2 diabetes mellitus with ketoacidosis without coma; G92 Toxic encephalopathy; N17.0 Acute kidney failure with tubular necrosis; E43 Unspecified severe protein-calorie malnutrition; E87.1 Hypo-osmolality and hyponatremia; Z88.8 Allergy status to other drugs, medicaments and biological substances; I10 Essential (primary) hypertension; Z79.4 Long term (current) use of insulin; E87.5 Hyperkalemia; Z86.14 Personal history of Methicillin resistant Staphylococcus aureus infection; Z88.5 Allergy status to narcotic agent; R65.20 Severe sepsis without septic shock; D63.1 Anemia in chronic kidney disease; D50.0 Iron deficiency anemia secondary to blood loss (chronic)
CPT/HCPCS: 36415; 71045; 80048; 80053; 80307; 80320; 81001; 82140; 82805; 82947; 82962; 83036; 83735; 84100; 85007; 85014; 85018; 85025; 85027; 86850; 86900; 86901; 86920; 87040; 87076; 87116; 87186; 93005; 93010; 96374; 96375; 99291; G0480; J0360; J0690; J1644; J1815; J2250; J2270; J2543; J2997; J3370; J3480; J7030; J7040; J7050; J7070; P9016

== ENCOUNTER → 2017-09-08 | Emergency (ER) | payer SELFPAY ==
[~2017-09-08] MED LIST: ASPIRIN PO ONE; HumuLIN R IV ONE; MORPHINE IV ONE; NACL 0.9% 1000 ML 1,000 ML IV ONE; NACL 0.9% 1000 ML 2,000 ML ONE
[2017-09-08 10:21] LABS: Basophils % (Auto) 0.9 % (0.0-1.8); Eosinophils # (Auto) 0.1 K/mm3 (0.0-0.4); Eosinophils % (Auto) 1.3 % (0.0-4.3); Hematocrit 27.5 % (35.5-45.6); Hemoglobin 9.1 gm/dl (11.8-15.2); Lymphocytes # (Auto) 0.7 K/mm3 (1.2-5.4); Lymphocytes % (Auto) 14.3 % (13.4-35.0); Mean Corpuscular HGB Conc 33 % (32-34); Mean Corpuscular Hemoglobin 27 pg (28-32); Mean Corpuscular Volume 81 fl (84-94); Monocytes # (Auto) 0.3 K/mm3 (0.0-0.8); Monocytes % (Auto) 6.8 % (0.0-7.3); Platelet Count 320 K/mm3 (140-440); Red Blood Count 3.38 M/mm3 (3.65-5.03); Red Cell Distribution Width 14.9 % (13.2-15.2)
--- NOTE | 2017-09-08 10:31 | XRay Report ---
ROUTINE CHEST, TWO VIEWS: HISTORY: Difficulty in breathing. The central line has been removed and bibasilar opacities have resolved since 06/11/17 exam. The lungs are well expanded and generally clear on today's exam. There is a faint 1 cm density in the right upper lobe which is of doubtful clinical significance. This probably represents a focus of scarring or atelectasis. No evidence for pneumonia, pleural effusion or pneumothorax. Normal heart and mediastinal structures. Normal bony thorax. IMPRESSION: Essentially unremarkable chest films. Faint 1 cm right upper lobe opacity of doubtful clinical significance.
[2017-09-08 10:53] LABS: BUN/Creatinine Ratio 23; Blood Urea Nitrogen 16 mg/dL (9-20); Calcium 8.5 mg/dL (8.4-10.2); Hemolysis Index 1
--- NOTE | 2017-09-08 11:12 | Emergency Department Report ---
ED Chest Pain HPI - General Chief Complaint: Chest Pain Stated Complaint: DIABETIES/CHEST PAIN Time Seen by Provider: 09/08/17 10:50 Source: patient, EMS Mode of arrival: Ambulatory Limitations: No Limitations - History of Present Illness Initial Comments: 31yo male with PMHx of DM on insulin, HTN, came in complaining of chest pain on and off for 2 days and also high blood sugar, pt states he hasnt taken his insulin in past 2 days. Pt denies any n/v/sob, +cp. Pt is under no acute distress. He denies any calf pain MD Complaint: chest pain Onset/Timin -: Gradual, days(s) Onset: during rest Pain Location: substernal Pain Radiation: none Severity: mild Severity scale (0 -10): 3 Quality: dull Consistency: intermittent Improves With: nothing Worsens With: nothing re: nausea Other Symptoms: denies: cough, fever, syncope, rash, acid taste in mouth, leg swelling, palpitations, burping Treatments Prior to Arrival: none - Related Data Home Medications Medication Instructions Recorded Confirmed Last Taken Insulin NPH Human Isophane 15 unit SQ DAILY 06/12/17 06/12/17 06/09/17 [Novolin N] 15 units Previous Rx's Medication Instructions Recorded Last Taken Type Ferrous Sulfate [Feosol 325 MG tab] 325 mg PO TID #90 tablet 06/14/17 Unknown Rx Linezolid [Zyvox] 600 mg PO BID 4 Days tablet 06/16/17 Unknown Rx Allergies Allergy/AdvReac Type Severity Reaction Status Date / Time codeine Allergy Hives Verified 04/24/17 18:15 ondansetron HCl [From Zofran] Allergy Hives Verified 04/24/17 18:15 hydrocodone bitartrate AdvReac Headache Verified 04/24/17 18:15 [From Lortab] Heart Score - HEART Score History: Slightly suspicious EKG: Normal Age: < 45 Risk factors: No known risk factors Troponin: < normal limit HEART Score: 0 - Critical Actions Critical Actions: 0-3 pts:0.9-1.7%risk of adverse cardiac event.Candidate for discharge ED Review of Systems ROS: Stated complaint: DIABETIES/CHEST PAIN Other details as noted in HPI Constitutional: denies: chills, fever Eyes: denies: eye pain, eye discharge, vision change ENT: denies: ear pain, throat pain Respiratory: denies: cough, shortness of breath, wheezing Cardiovascular: denies: chest pain, palpitations Endocrine: no symptoms reported Gastrointestinal: denies: abdominal pain, nausea, diarrhea Genitourinary: denies: urgency, dysuria Musculoskeletal: denies: back pain, joint swelling, arthralgia Skin: denies: rash, lesions Neurological: denies: headache, weakness, paresthesias Psychiatric: denies: anxiety, depression Hematological/Lymphatic: denies: easy bleeding, easy bruising ED Past Medical Hx - Past Medical History Previous Medical History?: Yes Hx Hypertension: Yes Hx Congestive Heart Failure: No Hx Diabetes: Yes Hx Asthma: No Hx COPD: No Hx HIV: (States he does not have HIV) Additional medical history: staph infection, CHEST DEFORMITY - Surgical History Past Surgical History?: Yes Additional Surgical History: wound debridement (staph infection)--NECK AND BACK - Social History Smoking Status: Never Smoker - Medications Home Medications: Home Medications Medication Instructions Recorded Confirmed Last Taken Type Insulin NPH Human Isophane 15 unit SQ DAILY 06/12/17 06/12/17 06/09/17 History [Novolin N] 15 units Ferrous Sulfate [Feosol 325 MG tab] 325 mg PO TID #90 tablet 06/14/17 Unknown Rx Linezolid [Zyvox] 600 mg PO BID 4 Days tablet 06/16/17 Unknown Rx ED Physical Exam - General Limitations: No Limitations General appearance: alert, in no apparent distress - Head Head exam: Present: atraumatic, normocephalic - Eye Eye exam: Present: normal appearance - ENT ENT exam: Present: mucous membranes moist - Neck Neck exam: Present: normal inspection - Respiratory Respiratory exam: Present: normal lung sounds bilaterally. Absent: respiratory distress - Cardiovascular Cardiovascular Exam: Present: regular rate, normal rhythm. Absent: systolic murmur, diastolic murmur, rubs, gallop - GI/Abdominal GI/Abdominal exam: Present: soft, normal bowel sounds - Rectal Rectal exam: Present: deferred - Extremities Exam Extremities exam: Present: normal inspection - Back Exam Back exam: Present: normal inspection - Neurological Exam Neurological exam: Present: alert, oriented X3 - Psychiatric Psychiatric exam: Present: normal affect, normal mood - Skin Skin exam: Present: warm, dry, intact, normal color. Absent: rash ED Course Vital Signs 09/08/17 09/08/17 09/08/17 09:43 10:56 11:00 Pulse Rate 103 H 147 H Respiratory Rate Blood Pressure 105/68 102/70 117/88 O2 Sat by Pulse 98 Oximetry 09/08/17 09/08/17 09/08/17 11:09 11:15 11:30 Pulse Rate 87 91 H Respiratory 18 11 L 10 L Rate Blood Pressure 106/73 107/69 O2 Sat by Pulse 99 98 Oximetry 09/08/17 09/08/17 09/08/17 11:45 12:00 12:15 Pulse Rate 84 83 83 Respiratory 10 L 10 L 16 Rate Blood Pressure 100/69 107/72 101/67 O2 Sat by Pulse 100 100 100 Oximetry 09/08/17 09/08/17 09/08/17 12:30 12:45 13:00 Pulse Rate 89 82 84 Respiratory 12 10 L 10 L Rate Blood Pressure 101/67 98/62 94/64 O2 Sat by Pulse 100 100 100 Oximetry 31yo male with hyperglycemia and chest pain, pts troponin is slightly elevated, discussed the case with Dr.Raj Taylor (fumigator and sterilizer terra cotta mason) and per him to just trend the troponins at this time and nothing else to be done at this time. i called for admission to hospital overnight, he wants another troponin drawn at this time and will decide the disposition 31yo male with chest pain and hyperglycemia, pt is given insulin, fluids and aspirin in the ER. i called to admit the pt and for further evaluation and treatment states he will likely discharge the pt home, but i admitted the pt to the hospital. i put in orders for admission to hospital AICHA score - Aicha Score Age > 65: (0) No Aspirin use within the Past 7 Days: (0) No 3 or more CAD Risk Factors: (0) No 2 or more Angina events in past 24 hrs: (0) No Known CAD with more than 50% Stenosis: (0) No Elevated Cardiac Markers: (0) No ST Deviation Greater than 0.5mm: (0) No AICHA Score: 0 ED Medical Decision Making - Lab Data Result diagrams: 09/08/17 10:00 09/08/17 10:00 Critical care attestation.: If time is entered above; I have spent that time in minutes in the direct care of this critically ill patient, excluding procedure time. ED Disposition Clinical Impression: Chest pain Disposition: OP ADMIT IP TO THIS HOSP Is pt being admited?: Yes Condition: Stable Instructions: Chest Pain (ED) Referrals: PRIMARY CARE, [Primary Care Provider] - 3-5 Days
[2017-09-08 14:38] LABS: Bilirubin,Urine NEG (Negative); Blood,Urine NEG (Negative); Color,Urine Straw (Yellow); Hyaline Casts,Urine 1 /LPF; Mucus,Urine FEW /HPF; Protein,Urine <15 mg/dL mg/dL (Negative); Urobilinogen,Urine < 2.0 mg/dL (<2.0); WBC,Urine < 1.0 /HPF (0.0-6.0)
--- NOTE | 2017-09-08 15:04 | Event Note ---
Date: 09/08/17
[2017-09-08 15:34] LABS: Chol/HDL Ratio 2.55 %; HDL Cholesterol 58 mg/dL (40-59); LDL Cholesterol,Direct 57 mg/dL (50-130)
[2017-09-08 16:22] VITALS: BP 104/65
== END | disposition admitted as inpatient to this hospital (09) ==
LOC: ED 09:38
DX: R07.89 Other chest pain (principal); E11.65 Type 2 diabetes mellitus with hyperglycemia; I10 Essential (primary) hypertension; Z79.4 Long term (current) use of insulin; Z88.6 Allergy status to analgesic agent
CPT/HCPCS: 36415; 71046; 80048; 80061; 81001; 82805; 82962; 84484; 85025; 93005; 93010; 96361; 96374; 96375; 96376; 99285; J2270; J7030; J1815